=== PATIENT | male | born 1945 | race Caucasian/White ===

== ENCOUNTER → 2017-09-25 10:15 | Outpatient (CLI) | payer MEDICARE, OTHER, SELFPAY ==
[2017-09-25 12:48] LABS: Absolute Lymphocyte Count 0.78 X10^3/ul (0.83-4.51); Absolute Neutrophil Count 4.6 X10^3/uL (2.0-7.7); Basophil# 0.03 X10^3/uL; Basophil% 0.5 % (0-1); Eosinophils% 1.6 % (0-5); Hemoglobin 16.8 g/dl (13.0-16.5); Lymphocyte # 0.78 X10^3/ul (4.0); Lymphocyte % 12.5 % (19-41); Mean Corp Hgb Conc 34.3 g/gl (32-36); Mean Corpuscular Hgb 31.2 pg (27.0-32.0); Mean Corpuscular Volume 90.9 fL (80-94); Mean Platelet Vol. 11.2 fl (6.2-12.0); Monocyte# 0.55 X10^3/uL; Monocyte% 8.8 % (0-10); Neutrophil # 4.61 X10^3/uL (2.7-7.7); Neutrophil % 74.2 % (47-70); Platelet Count 168 K/mm3 (150-450); RBC Distribution Width CV 14.1 % (11.6-14.6); RBC Distribution Width SD 46.9 fl (35.1-43.9); Red Blood Count 5.39 M/mm3 (4.6-6.2); White Blood Count 6.2 K/mm3 (4.4-11.0)
[2017-09-25 12:49] LABS: POSITIVE COUNT NO; POSITIVE DIFFERENTIAL NO; POSITIVE MORPHOLOGY NO
[2017-09-25 13:07] LABS: AST(SGOT) 14 U/L (15-37); Alanine Aminotransfer ALT/SGPT 26 U/L (16-61); Albumin, Serum 3.7 g/dL (3.2-5.0); Alkaline Phosphatase 66 U/L (45-117); Anion Gap 8 (5-15); BUN 20 mg/dL (7-18); BUN/Creat Ratio 12.5 RATIO (10-20); Calcium,Total 8.7 mg/dL (8.5-10.1); Chloride 102 mmol/L (98-107); EST Glomerular Filtration Rate 45 mL/min (>60); Est Glom Filt Rate - Afr Amer 55 mL/min (>60); Globulin 3.8 g/dL (2.2-4.2); Glucose 78 mg/dL (74-106); Potassium 4.2 mmol/L (3.5-5.1); Protein, Total 7.5 g/dL (6.4-8.2); Sodium Level 138 mmol/L (136-145); Thyroid Stim Hormone (TSH) 1.96 uIU/mL (0.358-3.74); Uric Acid 7.6 mg/dL (3.5-7.2)
[2017-09-26 12:44] LABS: Pathologist Review Reviewed
== END ==
PROVIDERS: Family Provider Family Medicine Geriatric Medicine; PCP Family Medicine Geriatric Medicine; Visit Provider Family Medicine Geriatric Medicine
DX: E23.6 Other disorders of pituitary gland (principal); R53.83 Other fatigue; M10.9 Gout, unspecified
CPT/HCPCS: 36415; 80053; 84403; 84443; 84550; 85025

== ENCOUNTER → 2017-10-16 13:51 | Outpatient (CLI) | payer MEDICARE, OTHER, SELFPAY | PROVIDERS: Family Provider Family Medicine Geriatric Medicine; PCP Family Medicine Geriatric Medicine; Visit Provider Family Medicine Geriatric Medicine | DX: R68.83 Chills (without fever) (principal) | CPT/HCPCS: 87633 ==

== ENCOUNTER → 2017-12-04 10:15 | Outpatient (CLI) | payer MEDICARE, OTHER, SELFPAY ==
[2017-12-04 13:05] LABS: Protein, Urine (Random) 20.8 mg/dL (<11.9); Protein:Creat Ratio 128 mg/g CRE (0-200)
[2017-12-04 13:35] LABS: Albumin, Serum 3.7 g/dL (3.2-5.0); BUN 18 mg/dL (7-18); BUN/Creat Ratio 9.7 RATIO (10-20); Calcium,Total 8.5 mg/dL (8.5-10.1); Chloride 104 mmol/L (98-107); Creatinine, Serum 1.86 mg/dL (0.70-1.30); EST Glomerular Filtration Rate 38 mL/min (>60); Est Glom Filt Rate - Afr Amer 46 mL/min (>60); Glucose 159 mg/dL (74-106); Phosphorus 2.3 mg/dL (2.5-4.9); Sodium Level 138 mmol/L (136-145)
== END ==
PROVIDERS: Visit Provider Internal Medicine Nephrology
DX: N18.3 Chronic kidney disease, stage 3 (moderate) (principal)
CPT/HCPCS: 36415; 80069; 82570; 84156

== ENCOUNTER → 2017-12-11 11:55 | Outpatient (CLI) | payer MEDICARE, OTHER, SELFPAY ==
[2017-12-11 12:30] LABS: Hematocrit 51.6 % (40-54); Hemoglobin 17.7 g/dl (13.0-16.5); Mean Corp Hgb Conc 34.3 g/gl (32-36); Mean Corpuscular Hgb 31.1 pg (27.0-32.0); Mean Corpuscular Volume 90.7 fL (80-94); Mean Platelet Vol. 10.8 fl (6.2-12.0); Platelet Count 194 K/mm3 (150-450); RBC Distribution Width CV 13.2 % (11.6-14.6); RBC Distribution Width SD 43.7 fl (35.1-43.9); Red Blood Count 5.69 M/mm3 (4.6-6.2); White Blood Count 10.2 K/mm3 (4.4-11.0)
[2017-12-11 12:32] LABS: Scan Indicated on CBC? Y/N NO
== END ==
PROVIDERS: Family Provider Family Medicine Geriatric Medicine; PCP Family Medicine Geriatric Medicine; Visit Provider Internal Medicine Nephrology
DX: K62.5 Hemorrhage of anus and rectum (principal)
CPT/HCPCS: 36415; 85027

== ENCOUNTER 2017-12-30 09:21 | Emergency (ER) | payer MEDICARE, OTHER, SELFPAY ==
[2017-12-30 09:22] VITALS: BP 121/78; PULSE 71; RESP 17; TEMP 36.7; O2SAT 98; BMI 27.3
[2017-12-30 09:36] VITALS: O2SAT 96
--- NOTE | 2017-12-30 09:38 | EKG12_ITS ---
Test Reason : COUGH Blood Pressure : / mmHG Vent. Rate : 066 BPM Atrial Rate : 066 BPM P-R Int : 164 ms QRS Dur : 082 ms QT Int : 410 ms P-R-T Axes : 074 001 046 degrees QTc Int : 429 ms Normal sinus rhythm Normal ECG Confirmed by ALEX TREVINO ([id number]), film or videotape editor ANDRE MURRAY ([id number] on 01/13/2018 5:18:50 PM Referred By: LORELEI Confirmed By:ALEX TREVINO
--- NOTE | 2017-12-30 09:38 | RAD_ITS ---
STUDY: X-RAY CHEST REASON FOR EXAM: Male, 71 years old. Cough. Patient has history of lung cancer. TECHNIQUE: PA and lateral views of the chest. COMPARISON: October 12, 2016. FINDINGS: Cardiac monitoring leads are present. The lungs are hyperexpanded. There is interstitial thickening present in both lungs. There is blunting of the left lateral costophrenic angle possibly related to pleural thickening. No pleural effusions are visualized. There is pleural fibrotic thickening of the right lung apex. Normal size heart. Normal mediastinum and ghulam. Normal visualized pulmonary arteries. There is atherosclerotic calcification of the aortic arch with tortuosity. There is demineralization of the osseous structures. Normal visualized ribs, clavicles, and shoulders. There is no demonstrated abnormality of the visualized soft tissue structures of the upper abdomen. RAD/Chest PA and Lateral IMPRESSION: No radiographic evidence of acute cardiopulmonary disease. Electronically Signed: Samantha Melgoza MD at 10:29 EDT , Service support ,
--- NOTE | 2017-12-30 09:38 | NURSING ---
NO LW OR POA
--- NOTE | 2017-12-30 09:44 | ED.DCSUM_ITS ---
- ER Visit Summary Date of Service: 12/30/17 Chief Complaint: Cough, congestion, headache History of Present Illness: The patient is a 71 M with productive cough over the past 4 days. He reports that the fevers and sweats. He has pain in his back with the cough. He does have a history of COPD but reports very minimal wheezing. Past history significant for renal cell and bladder cancer resulting in right- sided nephrectomy. He also had lung cancer with a lobectomy. He does not use home oxygen. Physical Examination: Vital signs are unremarkable. Patient is lying in bed. He has frequent harsh sounding cough. Heart is regular rate and rhythm. Lung sounds are grossly clear. Abdomen is soft nontender. Lower external examination reveals no significant calf tenderness or edema. Test Results: EKG is sinus at 66 with no sign of acute ischemia. CBC was normal white count with no left shift. Chemistry studies reveal creatinine 1.78 which is consistent with his baseline. Lactate is normal. Blood cultures were sent. Two-view chest x-ray reveals no evidence of acute disease. Fibrotic changes are noted. Emergency Department Course and Treatment: Patient was given IV fluids along with p.o. Hycodan. On repeat evaluation he does feel improved. Patient states he does have some Hycodan at home that he can use. Because of his COPD history he will be covered with a course of Levaquin, first dose given here. He was encouraged to return for worsening symptoms or any other concerns. Treatment Plan: [] Disposition: Discharge Impression: Bronchitis with history of COPD This note was generated with [employer] dictation software. It may contain incorrect words, spelling, and punctuation that were not noted in review of the chart prior to signing ED Disposition - Plan for ED Patient: Chief Complaint: Cough Referrals: David Chandler Chi, MD [Primary Care Provider] -
[2017-12-30] MEDS: 0.9% Normal Saline 1,000 ML 150 ML IV (09:47)
[2017-12-30 09:56] LABS: Absolute Lymphocyte Count 0.67 X10^3/ul (0.83-4.51); Basophil# 0.04 X10^3/uL; Basophil% 0.7 % (0-1); Eosinophil# 0.24 X10^3/uL; Eosinophils% 4.1 % (0-5); Hematocrit 49.5 % (40-54); Lymphocyte # 0.67 X10^3/ul (4.0); Lymphocyte % 11.5 % (19-41); Mean Corp Hgb Conc 34.3 g/gl (32-36); Mean Corpuscular Hgb 30.9 pg (27.0-32.0); Mean Corpuscular Volume 89.8 fL (80-94); Mean Platelet Vol. 10.9 fl (6.2-12.0); Monocyte# 0.77 X10^3/uL; Monocyte% 13.3 % (0-10); Neutrophil # 4.01 X10^3/uL (2.7-7.7); POSITIVE COUNT NO; POSITIVE DIFFERENTIAL NO; POSITIVE MORPHOLOGY NO; Platelet Count 152 K/mm3 (150-450); RBC Distribution Width SD 42.5 fl (35.1-43.9); Red Blood Count 5.51 M/mm3 (4.6-6.2); White Blood Count 5.8 K/mm3 (4.4-11.0)
[2017-12-30 10:10] LABS: Anion Gap 7 (5-15); BUN 25 mg/dL (7-18); Calcium,Total 8.5 mg/dL (8.5-10.1); Chloride 105 mmol/L (98-107); Creatinine, Serum 1.78 mg/dL (0.70-1.30); EST Glomerular Filtration Rate 40 mL/min (>60); Est Glom Filt Rate - Afr Amer 49 mL/min (>60); Estimated Creatinine Clearance 45.49 ml/min; Glucose 77 mg/dL (74-106); Potassium 4.2 mmol/L (3.5-5.1); Sodium Level 138 mmol/L (136-145)
[2017-12-30 10:31] LABS: Lactic Acid 1.4 mmol/L (0.4-2.0)
--- NOTE | 2017-12-30 10:44 | ED.DEP ---
ED Disposition - Plan for ED Patient: Disposition: Home or Assisted Living Chief Complaint: Cough Instructions: Acute Bronchitis Prescriptions: Levofloxacin [Levaquin] 750 mg PO DAILY #4 tablet Referrals: David Chandler Chi, MD [Primary Care Provider] - 1 Week
[2017-12-30] MEDS: levoFLOXacin 750 MG Tablet PO (10:49)
[2017-12-30 10:53] VITALS: BP 136/93; PULSE 61; RESP 20; O2SAT 95
--- NOTE | 2017-12-31 14:17 | CM.ED ---
ED CALLBACK: Follow-up call placed to patient. Voicemail left with return contact information.
== END 2017-12-30 10:54 | disposition home or self-care (01) ==
PROVIDERS: Emergency Provider Emergency Medicine; Family Provider Family Medicine Geriatric Medicine; PCP Family Medicine Geriatric Medicine
DX: J44.9 Chronic obstructive pulmonary disease, unspecified (principal); J20.9 Acute bronchitis, unspecified; K21.9 Gastro-esophageal reflux disease without esophagitis; N18.9 Chronic kidney disease, unspecified; Z85.53 Personal history of malignant neoplasm of renal pelvis; Z85.51 Personal history of malignant neoplasm of bladder; Z85.118 Personal history of other malignant neoplasm of bronchus and lung; Z87.891 Personal history of nicotine dependence; Z90.5 Acquired absence of kidney; Z79.51 Long term (current) use of inhaled steroids; Z79.02 Long term (current) use of antithrombotics/antiplatelets
CPT/HCPCS: 71046; 80048; 83605; 85025; 87040; 93005; 99285; J7030

== ENCOUNTER → 2018-02-25 14:50 | Outpatient (CLI) | payer MEDICARE, OTHER, SELFPAY ==
--- NOTE | 2018-02-25 14:50 | RAD_ITS ---
STUDY: X-RAY - LUMBAR SPINE REASON FOR EXAM: Male, 72 years old. Lower back pain TECHNIQUE: 4 view(s) of the lumbar spine were obtained. COMPARISON: 05/20/2017, 12/11/2016 lumbar spine x-rays. FINDINGS: Scoliosis. Low lumbar posterior johnny and pedicle screw fixation and multilevel laminectomy between L4 and S1. The surgical construct appears intact. Moderate disc degenerative features at L2-L3, L3-L4 with disc space narrowing, endplate degenerative changes, small anterior osteophytes, and mild facet hypertrophy. In extension, there is no significant translation of vertebral bodies. In flexion, there is no significant translation of vertebral bodies. There is slight anterior compression of the disc intervals at L2-L3, L3-L4. RAD/L/S Spine Min 4 Views IMPRESSION: Minimal asymmetric anterior compression of the intervertebral discs at L2-L3 and L3-L4 in flexion. No significant change between neutral position and extension. Degenerative disc disease at each of these levels. This reflects abnormal motion at the levels immediately above the spinal fixation L4 and S1. The surgical construct is intact. Electronically Signed: Jaxon James, at 10:48 EDT Tel , Service support ,
== END ==
PROVIDERS: Family Provider Family Medicine Geriatric Medicine; PCP Family Medicine Geriatric Medicine; Visit Provider Orthopaedic Surgery
DX: M54.5 Low back pain (principal)
CPT/HCPCS: 72110; 97161

== ENCOUNTER → 2018-03-03 15:57 | Outpatient (CLI) | payer MEDICARE, OTHER, SELFPAY ==
--- NOTE | 2018-03-03 15:58 | MRI_ITS ---
STUDY: MRI LUMBAR SPINE WITH AND WITHOUT CONTRAST REASON FOR EXAM: Male, 72 years old. Low back pain and radiculopathy on the left TECHNIQUE: Standardized fat and water weighted pulse sequences were obtained in the sagittal and axial planes. 10 ml of Gadavist contrast material was administered for the contrast portion of the examination. COMPARISON: November 16, 2016 FINDINGS: T12-L1: Normal endplates. Normal disc height, desiccation and normal. Normal bilateral facet joints. Normal central canal and bilateral lateral recesses. Normal bilateral intervertebral neural foramina. Normal lumbar lordosis. There is no substantial scoliosis. Normal conus medullaris that terminates at T12-L1 L1-2: Normal endplates. Normal disc height, desiccation and normal morphology. Normal bilateral facet joints. Normal central canal and bilateral lateral recesses. Normal bilateral intervertebral neural foramina. L2-3: Normal endplates. Normal disc height, desiccation and mild annular bulge with small bilateral posterolateral/foraminal disc protrusions slightly larger on the right. Normal bilateral facet joints. Normal central canal. Mild left lateral recess and neuroforaminal encroachment with slightly more pronounced narrowing on the right. L3-4: Normal endplates. Normal disc height, desiccation and mild annular bulge in association with a moderate size right paracentral/posterolateral disc extrusion with inferior migration of disc fragment.. Bilateral facet arthropathy slightly greater on the right. Normal central canal. Moderate to severe right lateral recess and subarticular stenosis. Moderate to severe right neural foraminal stenosis.. L4-5: Postop changes status post bilateral laminectomy and posterior fusion. Minimal endplate spurring.. Bilateral facet arthropathy.. Normal central canal and bilateral lateral recesses. Normal bilateral intervertebral neural foramina. L5-S1: Postsurgical changes status post bilateral laminectomy and posterior fusion. Narrowed disc space with tiny central calcific disc or osteophyte protrusion. Bilateral facet arthropathy.. Normal central canal and bilateral lateral recesses. Normal bilateral intervertebral neural foramina. Normal visualized sacral ala. No abnormal enhancement following contrast injection Normal visualized paraspinous soft tissue structures. MRI/Spine Lumbar W/WO Contrast IMPRESSION: Postop changes status post bilateral laminectomy and posterior fusion at L4-5 and L5-S1. Spinal stenosis at L3-4 on the right secondary to disc disease and bony hypertrophy. Other findings as above Electronically Signed: Juan Alberto Stapleton MD at 23:04 EDT , Service support ,
[2018-03-03 16:21] LABS: CREATININE FINGERSTICK 1.3 mg/dL (0.70-1.30)
== END ==
PROVIDERS: Family Provider Family Medicine Geriatric Medicine; PCP Family Medicine Geriatric Medicine; Visit Provider Orthopaedic Surgery
DX: M54.16 Radiculopathy, lumbar region (principal)
CPT/HCPCS: 72158; A9585

== ENCOUNTER → 2018-03-31 12:10 | Outpatient (CLI) | payer MEDICARE, OTHER, SELFPAY ==
[2018-03-31 13:45] LABS: Absolute Lymphocyte Count 0.88 X10^3/ul (0.83-4.51); Absolute Neutrophil Count 6.6 X10^3/uL (2.0-7.7); Basophil# 0.02 X10^3/uL; Basophil% 0.2 % (0-1); Eosinophil# 0.11 X10^3/uL; Eosinophils% 1.3 % (0-5); Hematocrit 49.2 % (40-54); Hemoglobin 16.8 g/dl (13.0-16.5); Lymphocyte # 0.88 X10^3/ul (4.0); Lymphocyte % 10.7 % (19-41); Mean Corp Hgb Conc 34.1 g/gl (32-36); Mean Corpuscular Hgb 31.1 pg (27.0-32.0); Mean Corpuscular Volume 90.9 fL (80-94); Monocyte# 0.56 X10^3/uL; Monocyte% 6.8 % (0-10); Neutrophil # 6.58 X10^3/uL (2.7-7.7); Neutrophil % 80.3 % (47-70); Platelet Count 176 K/mm3 (150-450); RBC Distribution Width CV 13.7 % (11.6-14.6); RBC Distribution Width SD 45.3 fl (35.1-43.9); Red Blood Count 5.41 M/mm3 (4.6-6.2); White Blood Count 8.2 K/mm3 (4.4-11.0)
[2018-03-31 13:46] LABS: Differential Indicated SCAN CRITERIA MET; POSITIVE COUNT YES; POSITIVE DIFFERENTIAL NO; POSITIVE MORPHOLOGY YES
[2018-03-31 13:57] LABS: Vitamin D,25 Hydroxy 25.2 ng/mL (29.95-100.01)
[2018-03-31 13:59] LABS: ALB/GLOB Ratio 0.9 RATIO (0.9-2.4); AST(SGOT) 17 U/L (15-37); Alanine Aminotransfer ALT/SGPT 37 U/L (16-61); Albumin, Serum 3.5 g/dL (3.2-5.0); Alkaline Phosphatase 66 U/L (45-117); Anion Gap 9 (5-15); BUN 26 mg/dL (7-18); BUN/Creat Ratio 14.4 RATIO (10-20); Calcium,Total 8.7 mg/dL (8.5-10.1); Chloride 105 mmol/L (98-107); Creatinine, Serum 1.81 mg/dL (0.70-1.30); EST Glomerular Filtration Rate 39 mL/min (>60); Est Glom Filt Rate - Afr Amer 48 mL/min (>60); Glucose 98 mg/dL (74-106); Potassium 3.8 mmol/L (3.5-5.1); Protein, Total 7.5 g/dL (6.4-8.2); Sodium Level 139 mmol/L (136-145); Thyroid Stim Hormone (TSH) 1.93 uIU/mL (0.358-3.74); Uric Acid 8.5 mg/dL (3.5-7.2)
[2018-03-31 14:20] LABS: Platelet Estimate ADEQUATE (ADEQ); Platelet Morphology LARGE
[2018-04-01 17:12] LABS: Hep C Antibodies 0.1 s/co ratio (0.0-0.9)
== END ==
PROVIDERS: Family Provider Family Medicine Geriatric Medicine; PCP Family Medicine Geriatric Medicine; Visit Provider Family Medicine Geriatric Medicine
DX: R53.83 Other fatigue (principal); E55.9 Vitamin D deficiency, unspecified; E23.6 Other disorders of pituitary gland; M10.9 Gout, unspecified; Z13.89 Encounter for screening for other disorder
CPT/HCPCS: 36415; 80053; 82306; 84403; 84443; 84550; 85025; 86803

== ENCOUNTER 2018-04-02 13:00 | Outpatient (RCR) | payer MEDICARE, OTHER, SELFPAY ==
--- NOTE | 2018-02-25 15:46 | HP.PTEVAL_ITS ---
Patient's Visit Information CHECO GRAY is a 72 year old M referred to Physical Therapy by Margarita Otto with a diagnosis of R leg pain. Date of Evaluation: 02/25/18 Physical Therapist: Carmen Dill - Visit Plan Frequency: 2x /Week Duration: 2 Months Plan: 2X/week for 8 weeks for AT, deep water traction/ core stability, hip and LE strength (especially hip ext), trunk ROM, HS stretches with HEP. - Subjective Subjective: Pt reports that he has LBP and has had it 20 years and this episode for 4-6 weeks. Current symptoms: pain and stiff and pain down the front of R leg with front of leg and foot numbness. Few weeks ago her could not feel anything down his leg. He has 4 metal in L2-3-4.....saw Dr Otto a year ago and had the same problem and it worked good. Just finished [place] a year ago...still CA free. He is excited about AT. He is gonna have an MRI done soon and they will discuss POC. Increase pain with golfing and anything that requires lifting. Stairs: has to hold the railing and hard to lift leg up to get on the step. - Pain back pain Pain Intensity (Out of 10): 4 R leg pain Pain Intensity (Out of 10): 0 Comment: burning pain in foot 2-3/10 - Objective Gait: Walks with decreased stance time on the R. LE Strength: B hip flex 4+/5 , B knee ext and flex 4+/5, B hip abd 4+/5, B hip ext 3-/5. + SLR B for LBP. Tight HS B, Hip flexors. Able to heel and toe walk without difficulty. Trunk AROM: flexion 50%, ext not even to neutral, SB B 25%B - Goals Goal 1:: I HEP Goal Time Frame: 4-6 Weeks Goal 2:: Decrease back and leg pain to 2/10 back pain and 0/10 leg pain Goal Time Frame: 4-6 Weeks Goal 3:: Increase trunk AROM by 25% each plane (Trunk AROM: flexion 50%, ext not even to neutral, SB B 25%B) Goal Time Frame: 4-6 Weeks - Rehabilitation Potential Rehabilitation Potential: Good - Anticipated Interventions Patient/Client Instruction: Educate patient on: Condition, Plan of Care For the Purpose of:: To decrease pain, To increase ROM, To improve nutrient delivery to tissue, To improve muscle performance and motor function, To improve ability to perform ADL's, To increase tolerance to activity/condition/ position, To improve performance and independence with ADL's, To improve gait and locomotor functions, To improve health of tissue, To increase flexibility/ ROM Therapeutic Exercise to Include: Strength training, Body mechanics, Postural training, Flexibilty training, In an aquatic setting, Active ROM, Dynamic Lumbar Stabilization For the Purpose of:: To decrease pain, To increase ROM, To improve nutrient delivery to tissue, To improve muscle performance and motor function, To increase tolerance to activity/condition/position, To improve gait and locomotor functions, To improve health of tissue, To decrease soft tissue restriction, To increase flexibility/ROM Thank you for the opportunity to evaluate your patient. For Medicare and Medicare HMO plans, please review the plan of care and approve it. It will need to be FAXED BACK to us at [phone] for Medicare purposes. Please let me know if there are questions or concerns regarding this plan of care. Physician Signature: Date:
--- NOTE | 2018-04-02 13:30 | HP.PTDCSUM ---
HP - PT D/C Summary It has been my pleasure to treat CHECO GRAY under orders from Margarita Otto, for the diagnosis of R leg pain for a total of 7 visit(s). Discharge Date: 04/02/18 Please see the following information for a summary of their discharge status. - Subjective Subjective: Pt saw the surgeon yesterday and and had a + SLR on B sides. He is going to do surgery....They are going to do the surgery next week to set up time and dates. Dr wants to keep up with PT. Pt was doing good until the Dr did that yesterday. Pt walked the whole week last week and did not have a problems. He has numbess in his R leg and getting atrophy. Pt wants to wait on PT until after surgery. - Pain back pain Pain Intensity (Out of 10): 2 R leg pain Pain Intensity (Out of 10): 4 - Overall Improvement % Improvement: 25 - Objective Objective/Function: Trunk AROM: flexion 50%, ext 20%, SB B 25%, Rot B 75%. LE MMT: R hip flex 4-/5 and L 4/5, R knee ext 4-/5 and L 4/5, R knee flex 4-/5 and L 4/5, R hip abd B 4/5 - Goals Goal 1:: I HEP Goal 2:: Decrease back and leg pain to 2/10 back pain and 0/10 leg pain Goal 3:: Increase trunk AROM by 25% each plane (Trunk AROM: flexion 50%, ext not even to neutral, SB B 25%B) - Plan Plan: dc pt to surgeon - D/C Information Discharge Comments: DC PT to Surgeon If there are questions or concerns regarding this patient's physical therapy, please feel free to call me at [phone]. Thank you for the referral of this patient. Sincerely, Carmen Dill
== END 2018-04-02 17:01 | disposition home or self-care (01) ==
LOC: PT 13:00
PROVIDERS: Family Provider Family Medicine Geriatric Medicine; PCP Family Medicine Geriatric Medicine; Visit Provider Orthopaedic Surgery
DX: M79.604 Pain in right leg (principal)
CPT/HCPCS: 97113; 97161; 97530

== ENCOUNTER → 2018-06-06 09:30 | Outpatient (CLI) | payer MEDICARE, OTHER, SELFPAY ==
[2018-06-06 12:57] LABS: Albumin, Serum 3.3 g/dL (3.2-5.0); BUN 22 mg/dL (7-18); BUN/Creat Ratio 12.2 RATIO (10-20); Calcium,Total 8.6 mg/dL (8.5-10.1); Chloride 106 mmol/L (98-107); Creatinine, Serum 1.81 mg/dL (0.70-1.30); EST Glomerular Filtration Rate 39 mL/min (>60); Est Glom Filt Rate - Afr Amer 48 mL/min (>60); Glucose 75 mg/dL (74-106); Phosphorus 2.7 mg/dL (2.5-4.9); Sodium Level 140 mmol/L (136-145)
[2018-06-06 13:02] LABS: Hematocrit 43.7 % (40-54); Hemoglobin 14.5 g/dl (13.0-16.5); Mean Corp Hgb Conc 33.2 g/gl (32-36); Mean Corpuscular Hgb 30.5 pg (27.0-32.0); Mean Platelet Vol. 11.3 fl (6.2-12.0); Platelet Count 214 K/mm3 (150-450); RBC Distribution Width CV 13.6 % (11.6-14.6); RBC Distribution Width SD 44.9 fl (35.1-43.9); Red Blood Count 4.75 M/mm3 (4.6-6.2); Scan Indicated on CBC? Y/N NO; White Blood Count 7.1 K/mm3 (4.4-11.0)
[2018-06-06 13:26] LABS: PTHIN 54.6 pg/mL (18.4-80.1)
== END ==
PROVIDERS: Family Provider Family Medicine Geriatric Medicine; PCP Family Medicine Geriatric Medicine; Visit Provider Internal Medicine Nephrology
DX: N18.3 Chronic kidney disease, stage 3 (moderate) (principal)
CPT/HCPCS: 36415; 80069; 83970; 85027

== ENCOUNTER → 2018-06-13 08:39 | Outpatient (CLI) | payer MEDICARE, OTHER, SELFPAY ==
--- NOTE | 2018-06-13 08:47 | US_ITS ---
STUDY: RENAL ULTRASOUND - COMPLETE REASON FOR EXAM: Male, 72 years old. Nephrectomy TECHNIQUE: Ultrasound evaluation of the kidneys was performed with real-time and static arriaga-scale imaging. COMPARISON: None. FINDINGS: RIGHT KIDNEY: There has been a RIGHT nephrectomy. LEFT KIDNEY: Normal location of the left kidney, which is normal in size. The left kidney measures 12.8 x 6.1 x 7 cm. There is a normal cortex of the left kidney. The renal cortex measures 2 cm. There is no left renal mass or cyst. There are no left renal calculi. There is no left hydronephrosis. DISTAL LEFT URETER: There is non-visualization of the distal left ureter. There is no demonstrated left ureterovesical junction calculus. There is a visualized left ureteral jet. Urinary bladder is unremarkable. US/Kidney and Bladder IMPRESSION: RIGHT KIDNEY: There has been a RIGHT nephrectomy. LEFT KIDNEY: Normal. Electronically Signed: Trey Jaquez MD at 6:14 EST , Service support ,
== END ==
PROVIDERS: Family Provider Family Medicine Geriatric Medicine; PCP Family Medicine Geriatric Medicine; Referring Provider Internal Medicine Nephrology; Visit Provider Internal Medicine Nephrology
DX: C64.9 Malignant neoplasm of unspecified kidney, except renal pelvis (principal)
CPT/HCPCS: 76770

== ENCOUNTER → 2018-06-17 12:45 | Outpatient (CLI) | payer MEDICARE, OTHER, SELFPAY ==
--- NOTE | 2018-06-17 12:48 | RAD_ITS ---
STUDY: X-RAY - LUMBAR SPINE REASON FOR EXAM: Male, 72 years old. Lower back pain TECHNIQUE: 2 view(s) of the lumbar spine were obtained. COMPARISON: 02/25/2018. 05/20/2017. FINDINGS: Status post pedicular fusion L3-S1 and laminectomy with interval placement of disc spacer placement at L3-L4 and solid bone fusion. Interval removal of stimulator remnant. Normal lumbar lordosis. There is no substantial scoliosis. Stable mild retrolisthesis L2 on L3. There is spondylosis of the endplates. There is multi-level disc space narrowing along L2-3, L3-4 L5, L5-S1 as on previous exam. Facet arthropathy L2-3, L3-4 extending to S1. There is neural foraminal narrowing L2-3, L3-4, less L4-L5, L5-S1 not sufficiently utilized. There is atherosclerotic calcification of the abdominal aorta without a demonstrated aneurysm. There is an inferior vena cava filter. RAD/Lumbar Spine 2 or 3 Views IMPRESSION: Interval postsurgical changes as above. Persistent facet arthropathy, neural foraminal narrowing L3-4, disc space narrowing L4-5, L5-S1 and mild retrolisthesis L2 on L3. Electronically Signed: Venus Morales MD at 2:13 EST , Service support ,
== END ==
PROVIDERS: Family Provider Family Medicine Geriatric Medicine; PCP Family Medicine Geriatric Medicine; Referring Provider Orthopaedic Surgery; Visit Provider Orthopaedic Surgery
DX: M54.5 Low back pain (principal)
CPT/HCPCS: 72100

== ENCOUNTER → 2018-07-03 08:10 | Outpatient (CLI) | payer MEDICARE, OTHER, SELFPAY ==
--- NOTE | 2018-07-03 08:13 | RAD_ITS ---
HISTORY: shoulder pain after pulling self up from bed COMPARISON: None FINDINGS: XR Shoulder Min 3 views No dislocation or acute fracture. The right glenohumeral relationship appears normal. The right AC joint is grossly preserved. Remote fracture of the posterior lateral right fifth rib. RAD/Shoulder min 2 Views IMPRESSION: 1. Negative right shoulder. No acute disease. 2. Right fifth rib remote fracture. at 0810 Reported and signed by: Ayaan Linder MD Electronically Signed: Ayaan Linder, at 8:07 EST Tel , Service support ,
--- OUTSIDE RECORDS SUMMARY | 2018-08-28 08:02 | XMS RPT_ITS ---
:1945 Author Organization OHIP Support Name Relationship Address Phone STEVEN GRAY Unavailable [address] + [place] [address] R Unavailable Unavailable Unavailable STEVEN GRAY Unavailable [address] + [place] [address] R Unavailable Unavailable Unavailable STEVEN GRAY Unavailable [address] + [place] [address] R Unavailable Unavailable Unavailable STEVEN GRAY Unavailable Unavailable + CHECO GRAY Unavailable Unavailable Unavailable STEVEN GRAY Unavailable [address] + [place] [address] R Unavailable Unavailable Unavailable STEVEN GRAY Unavailable [address] + [place] [address] R Unavailable Unavailable Unavailable STEVEN GRAY Unavailable [address] + [place] [address] R Unavailable Unavailable Unavailable STEVEN GRAY Unavailable [address] + [place] [address] R Unavailable Unavailable Unavailable STEVEN GRAY Unavailable [address] + [place] [address] R Unavailable Unavailable Unavailable STEVEN GRAY Unavailable [address] + [place] [address] R Unavailable Unavailable Unavailable STEVEN GRAY Unavailable [address] + [place] [address] R Unavailable Unavailable Unavailable STEVEN GRAY Unavailable Unavailable + CHECO GRAY Unavailable Unavailable Unavailable STEVEN GRAY Unavailable Unavailable + CHECO GRAY Unavailable Unavailable Unavailable STEVEN GRAY Unavailable Unavailable + CHECO GRAY Unavailable Unavailable Unavailable STEVEN GRAY Unavailable Unavailable + CHECO GRAY Unavailable Unavailable Unavailable STEVEN GRAY Unavailable Unavailable + MARINACHECO Unavailable Unavailable Unavailable STEVEN GRAY Unavailable Unavailable + CHECO GRAY Unavailable Unavailable Unavailable TSEVEN GRAY Unavailable Unavailable + CHECO GRAY Unavailable Unavailable Unavailable STEVEN GRAY Unavailable [address] + [place] [address] R Unavailable Unavailable Unavailable STEVEN GRAY Unavailable [address] + [place] [address] R Unavailable Unavailable Unavailable STEVEN GRAY Unavailable [address] + [place] [address] R Unavailable Unavailable Unavailable STEVEN GRAY Unavailable [address] + [place] [address] R Unavailable Unavailable Unavailable STEVEN GRAY Unavailable Unavailable Unavailable STEVEN GRAY Unavailable [address] + [place] [address] R Unavailable Unavailable Unavailable STEVEN GRAY Unavailable [address] + [place] [address] R Unavailable Unavailable Unavailable STEVEN GRAY Unavailable Unavailable + CHECO GRAY Unavailable Unavailable Unavailable STEVEN GRAY Unavailable [address] + [place] [address] R Unavailable Unavailable Unavailable STEVEN GRAY Unavailable [address] + [place] [address] R Unavailable Unavailable Unavailable STEVEN GRAY Unavailable [address] + [place] [address] R Unavailable Unavailable Unavailable STEVEN GRAY Unavailable [address] + [place] [address] R Unavailable Unavailable Unavailable STEVEN GRAY Unavailable [address] + [place] [address] R Unavailable Unavailable Unavailable Care Team Providers Name Role Phone MARGARITA OTTO Attending Unavailable MARGARITA OTTO Referring Unavailable MARGARITA OTTO Admitting Unavailable MARGARITA OTTO Attending Unavailable CONSULT, GENERAL MEDICINE Consulting Unavailable MARGARITA OTTO Attending Unavailable OTTO, MARGARITA Referring Unavailable LAWRENCE PATRICIO Attending Unavailable GRIMME, AMY L Referring Unavailable RAMESH, DAVID-CHI Primary Care Unavailable LAWRENCE PATRICIO Attending Unavailable GRIMME, AMY L Referring Unavailable RAMESH, DAVID-CHI Primary Care Unavailable OTTOMARGARITA Attending Unavailable SELF, SELF Referring Unavailable RAMESH, DAVID-CHI Primary Care Unavailable GRIMME, AMY L Attending Unavailable GRIMME, AMY L Referring Unavailable RAMESH, DAVID-CHI Primary Care Unavailable RAMESH, DAVID-CHI Primary Care Unavailable KHABIRI, HK CELSO Admitting Unavailable KHABIRI, HK CELSO Attending Unavailable RAMESH, DAVID-CHI Primary Care Unavailable OTTO, MARGARITA Referring Unavailable KHABIRI, HK CELSO Attending Unavailable GRIMME, AMY L Referring Unavailable RAMESH, DAVID-CHI Primary Care Unavailable LORA, XUAN (MOLDER WAX BALL) Referring Unavailable LORA, XUAN (MOLDER WAX BALL) Referring Unavailable LORA, XUAN (MOLDER WAX BALL) Referring Unavailable LORA, XUAN (MOLDER WAX BALL) Referring Unavailable LORA, XUAN (MOLDER WAX BALL) Referring Unavailable LORA, XUAN (MOLDER WAX BALL) Attending Unavailable DAVE NOBLE Referring Unavailable LORA, XUAN (MOLDER WAX BALL) Referring Unavailable LORA, XUAN (MOLDER WAX BALL) Referring Unavailable LORA, XUAN (MOLDER WAX BALL) Referring Unavailable LORA, XUAN (MOLDER WAX BALL) Referring Unavailable LORA, XUAN (MOLDER WAX BALL) Referring Unavailable LORA, XUAN (MOLDER WAX BALL) Attending Unavailable LORA, XUAN (MOLDER WAX BALL) Referring Unavailable LORA, XUAN (MOLDER WAX BALL) Referring Unavailable LORA, XUAN (MOLDER WAX BALL) Referring Unavailable LORA, XUAN (MOLDER WAX BALL) Referring Unavailable Margarita Otto Attending Unavailable Ramesh, David Chi Referring Unavailable Margarita Otto Attending Unavailable Otto, Margarita Referring Unavailable Ramesh, David Chi Primary Care Unavailable Ramesh, David Chi Attending Unavailable Ramesh, David Chi Primary Care Unavailable Ramesh, David Chi Attending Unavailable Ramesh, David Chi Primary Care Unavailable mAy Briggs Attending Unavailable Ayaan Griggs Attending Unavailable Otto, Margarita Referring Unavailable Ramesh, David Chi Primary Care Unavailable Ramesh, David Chi Primary Care Unavailable Amy Briggs Attending Unavailable Amy Briggs Attending Unavailable Ramesh, David Chi Primary Care Unavailable Ramesh, David Chi Primary Care Unavailable Ellie Norman Attending Unavailable Otto, Margarita Attending Unavailable Ramesh, David Chi Referring Unavailable Ramesh, David Chi Primary Care Unavailable Otto, Margarita Attending Unavailable Otto, Margarita Referring Unavailable Ramesh, David Chi Primary Care Unavailable Otto, Margarita Attending Unavailable Otto, Margarita Referring Unavailable Ramesh, David Chi Primary Care Unavailable Otto, Margarita Attending Unavailable Otto, Margarita Referring Unavailable Ramesh, David Chi Primary Care Unavailable Ramesh, David Chi Attending Unavailable Ramesh, David Chi Primary Care Unavailable Otto, Margarita Attending Unavailable Ramesh, David Chi Referring Unavailable Ramesh, David Chi Primary Care Unavailable Chester, Amy Attending Unavailable Ramesh, David Chi Primary Care Unavailable Chester, Amy Attending Unavailable Chester, Amy Referring Unavailable Ramesh, David Chi Primary Care Unavailable Otto, Margarita Attending Unavailable Ramesh, David Chi Referring Unavailable Otto, Margarita Attending Unavailable Otto, Margarita Referring Unavailable Ramesh, David Chi Primary Care Unavailable Ayaan Griggs Attending Unavailable Ramesh, David Chi Referring Unavailable WayAyaan shannon Attending Unavailable Wayt, Ayaan Referring Unavailable Ramesh, David Chi Primary Care Unavailable PROBLEMS PROBLEMS DATE TYPE CONDITION / CODE ATTENDING STATUS SOURCE 07/15/2018 Unknown M54.9 - Dorsalgia, Margarita Otto Active [facility] unspecified / Community M54.9(ICD-10) Hospital Repository 07/15/2018 Unknown G89.29 - Other Margarita Otto Active [place] chronic pain / Community G89.29(ICD-10) Hospital Repository 07/08/2018 Admitting Encounter for other KHABIRI, HK Active [facility] diagnosis preprocedural [facility] examination / [facility] Z01.818(ICD-10) Center Repository 07/08/2018 Admitting Presence of other KHABIRI, HK Active [place] [facility] diagnosis vascular implants [facility] and grafts / [facility] Z95.828(ICD-10) Center Repository 07/03/2018 Unknown M25.511 - Pain in WayAyaan shannon Active [place] right shoulder / Community M25.511(ICD-10) Hospital Repository 06/17/2018 Unknown M54.5 - Low back Margarita Otto Active [place] pain / Community M54.5(ICD-10) Hospital Repository 06/13/2018 Unknown C64.9 - Malignant Amy rBiggs Active [facility] neoplasm of Community unspecified kidney, Hospital except renal pelvis Repository / C64.9(ICD-10) 05/08/2018 Unknown N18.3 - Chronic Amy Briggs Active [place] kidney disease, Community stage 3 (moderate) Hospital / N18.3(ICD-10) Repository 04/26/2018 Admitting Obstructive sleep MARGARITA OTTO Active [facility] diagnosis apnea (adult) [place] (pediatric) / [facility] G47.33(ICD-10) Center Repository 04/25/2018 Admitting Arthrodesis status MARGARITA OTTO Active [facility] diagnosis / Z98.1(ICD-10) [facility] Repository 04/25/2018 [facility] [place] unspecified / [facility] J44.9(ICD-10) Center Repository 04/25/2018 Admitting Other pulmonary MANNIE OTTOBETH [facility] diagnosis embolism without [place] acute cor pulmonale [facility] / I26.99(ICD-10) Center Repository 04/17/2018 Admitting [facility] without neurogenic [facility] claudication / Center M48.061(ICD-10) Repository 04/17/2018 Admitting Other specified KHABIRI, HK Active [facility] diagnosis personal risk [facility] University factors, not [facility] classified / Repository Z91.89(ICD-10) 04/16/2018 Admitting Pre-op Exam / MARGARITA OTTO Active [facility] diagnosis [id number]() [facility] Repository 04/16/2018 Admitting Preoperative LAWRENCE PATRICIO Active [facility] diagnosis Assessment / 279() [facility] Repository 04/02/2018 Unknown M79.604 - Pain in Margarita Otto Active [facility] right leg / Community M79.604(ICD-10) Hospital Repository 03/31/2018 Unknown 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, 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 / Hospital E23.6(ICD-10) Repository 03/31/2018 Unknown E55.9 - Vitamin D Ramesh, David Chi Active [facility] deficiency, Community unspecified / Hospital E55.9(ICD-10) Repository 03/31/2018 Unknown M10.9 - Gout, Ramesh, David Chi Active [facility] unspecified / Community M10.9(ICD-10) Hospital Repository 03/31/2018 Unknown R53.83 - Other Ramesh, David Chi Active [facility] fatigue / Community R53.83(ICD-10) Hospital Repository 03/31/2018 Unknown Z13.89 - Encounter Ramesh, David Chi Active [place] for screening for Community other disorder / Hospital Z13.89(ICD-10) Repository 03/03/2018 Unknown M54.16 - Margarita Otto Active [place] Radiculopathy, Community lumbar region / Hospital M54.16(ICD-10) Repository 12/11/2017 Unknown K62.5 - Hemorrhage Chester, Amy Active [facility] of anus and rectum Community / K62.5(ICD-10) Hospital Repository 10/17/2017 Active Unknown / NA Active [facility] [place] Repository 10/16/2017 Active Other pulmonary NA Active [facility] embolism without [facility] acute cor pulmonale [place] / I26.99(ICD-10) Repository 10/16/2017 Active Acute embolism and NA Active [facility] thrombosis of [facility] unspecified vein / [place] I82.90(ICD-10) Repository 09/24/2016 Active 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, [facility]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 or [place] lung / Repository C34.11(ICD-10) PROCEDURES PROCEDURES No Procedure Records FoundRESULTS RESULTS LUMBAR SPINE 2 OR 3 Observed: 07/15/2018 Status: F Source: [place] VIEWS 1:16 PM [facility] REPOSITORY [facility] Imaging Services [address] [place] [address] Lumbar Spine 2 or 3 Views MR#: [id number] Acct: [id number] Name: CHECO GRAY Rep #: [id number] : 1945 M 72 From: Walter Peguero PCP: Ramesh BRUMFIELD,David Huffman Status: REG CLI Study: Lumbar Spine 2 or 3 Views Date of Exam: 07/15/18 Exam# [id number] Ordering Dr: Margarita Otto MD STUDY: X-RAY - LUMBAR SPINE REASON FOR EXAM: Male, 72 years old. dorsalgia, chronic pain TECHNIQUE: 2 view(s) of the lumbar spine were obtained. COMPARISON: June 17, 2018 FINDINGS: Normal lumbar lordosis. There is posterior fusion at L3, L4, L5 and S1. There is a disc spacer at L3/L4. Findings are stable since the prior examination There is multilevel endplate spondylosis of the lumbar vertebrae. There is multi-level degenerative disc disease with multi-level disc space narrowing. There is atherosclerotic calcification of the abdominal aorta. There is IVC filter. RAD/Lumbar Spine 2 or 3 Views IMPRESSION: Stable posterior fusion Electronically Signed: Walter Peguero MD at 8:13 EST Tel , Service support , CC: Margarita Otto MD; David Chandler MD Manager Ethics: Signed ORTHOPEDIC VISIT Observed: 07/03/2018 Status: F Source: [place] REPORT 4:23 PM [facility] REPOSITORY [facility] Orthopaedics AND Sports Medicine [address] [place] [address] OFFICE VISIT Date of Service: 07/03/18 MR#: [id number] Acct: [id number] Name: CHECO GRAY Rep #: [id number] : 1945 Provider: MARIANGEL Griggs Age/Sex: 72/M Location: [facility] Status: Signed Intake Intake Visit Reasons: RIGHT SHOULDER Is patient in pain?: Yes Allergies No Known Allergies Allergy (Verified 07/03/18 08:07) Medications Albuterol Inhaler [Ventolin Hfa] 1 - 2 puff INHALATION Q4H PRN PRN 10/20/13 [History Confirmed 02/26/18] Albuterol Aerosols [Ventolin Aerosols] 2.5 mg INHALATION Q6HWA.RT 10/05/16 [History Confirmed 02/26/18] Pramipexole Di-HCl [Mirapex] 1 mg PO QHS 10/05/16 [History Confirmed 02/26/18] Levofloxacin [Levaquin] 750 mg PO DAILY #4 tab 12/30/17 [Rx Confirmed 02/26/18] Rivaroxaban [Xarelto] 20 mg PO DAILY 12/30/17 [History Confirmed 02/26/18] PFSH Medical History Pulmonary embolism (Acute) Social History Smoking Status: Former smoker HPI RIGHT SHOULDER: Details: CHECO GRAY is a 72 year old M here today for right shoulder pain. Patient notes that he has had right shoulder pain for about 6 weeks. He states that he had back surgery and was pulling himself up, at the time of his injury he felt a pop. He has pain over his posterior shoulder. He has increased pain with range of motion. He denies any weakness. Patient has full range of motion. Patient denies any xrays, MRI, injections or physical therapy. ROS Const Reports system reviewed and no additional complaints, except as docu Eyes Reports system reviewed and no additional complaints, except as docu ENT Reports system reviewed and no additional complaints, except as docu Card Reports system reviewed and no additional complaints, except as docu Resp Reports system reviewed and no additional complaints, except as docu GI Reports system reviewed and no additional complaints, except as docu Reports system reviewed and no additional complaints, except as docu Musc Reports joint pain Skin/Breast Reports system reviewed and no additional complaints, except as docu Neuro Yes system reviewed and no additional complaints, except as docu Psych Reports system reviewed and no additional complaints, except as docu Endo Reports system reviewed and no additional complaints, except as docu Ortho Exam Right Shoulder Testing: Positive Neer's and TTP AC Joint; negative Hawkin's, Speed's, TTP Biceps, Drop Arm, Yergason's, AROM-Forward Elevation 0-180, AROM-External Rotation at side 0-60 or empty can Internal Rotation: T12 Assessment AND Plan Problems 1. Rotator cuff impingement syndrome of right shoulder M75.41 Plan Obtained Xrays of patient's right shoulder. Personally reviewed Xrays. There is no obvious fracture, dislocation, or lucency noted. See chart for further details. Patient has full range of motion of the shoulder today in the office. His strength in the right shoulder is pretty comparable to the left with may be very minor decrease. He has very minor discomfort with Neer impingement sign. He does have some minor tenderness at the AC joint with a fall directly on the shoulder likely had some separation. He does have some minor arthritis at this joint as well. He has not seen improvement over the past 6 weeks. We discussed his options which are to do nothing, continue with other conservative therapy such as ice and anti-inflammatories, injection, and physical therapy. At this time I do not feel further imaging with MRI is warranted until we try some of the physical therapy. He does not wish to have an injection today in the office and therefore he was given a prescription for [facility]. He will follow- up in 6-8 weeks to recheck. Orders Orders: Plan Detail Follow Up 6 Weeks Coding Level of Care Code Off vis,est,level 3 Diagnoses Rotator cuff impingement syndrome of right shoulder M75.41 07/03/18 1623 <Electronically signed by Ayaan AUGUST> Date Ayaan AUGUST Cosigner Signature: Date (if applicable) CC: SHOULDER MIN 2 VIEWS Observed: 07/03/2018 Status: F Source: [place] 8:13 AM [facility] REPOSITORY [facility] Imaging Services [address] [place] [address] Shoulder min 2 Views MR#: [id number] Acct: [id number] Name: CHECO GRAY Carol Ann Rep #: [id number] : 1945 M 72 From: Ayaan Linder MD PCP: Ramesh BRUMFIELD,David Chi Status: REG CLI Study: Shoulder min 2 Views Date of Exam: 07/03/18 Exam# [id number] Ordering Dr: Ayaan Griggs HISTORY: shoulder pain after pulling self up from bed COMPARISON: None FINDINGS: XR Shoulder Min 3 views No dislocation or acute fracture. The right glenohumeral relationship appears normal. The right AC joint is grossly preserved. Remote fracture of the posterior lateral right fifth rib. RAD/Shoulder min 2 Views IMPRESSION: 1. Negative right shoulder. No acute disease. 2. Right fifth rib remote fracture. at 0810 Reported and signed by: Ayaan Linder MD Electronically Signed: Ayaan Linder, at 8:07 EST Tel , Service support , CC: MARIANGEL Griggs; David Chandler MD Manager Ethics: Signed ORTHOPEDIC VISIT Observed: 06/20/2018 Status: F Source: [place] REPORT 3:50 PM [facility] REPOSITORY [facility] Orthopaedics AND Sports Medicine [address] [place] [address] [address] [place] [address] OFFICE VISIT Date of Service: 06/17/18 MR#: [id number] Acct: [id number] Name: CHECO GRAY Rep #: [id number] : 1945 Provider: Margarita Otto MD Age/Sex: 72/M [place] [facility] Status: Signed Intake Intake Visit Reasons: Lumbar pain Is patient in pain?: No Allergies No Known Allergies Allergy (Verified 06/17/18 13:17) Medications Albuterol Inhaler [Ventolin Hfa] 1 - 2 puff INHALATION Q4H PRN PRN 10/20/13 [History Confirmed 02/26/18] Albuterol Aerosols [Ventolin Aerosols] 2.5 mg INHALATION Q6HWA.RT 10/05/16 [History Confirmed 02/26/18] Pramipexole Di-HCl [Mirapex] 1 mg PO QHS 10/05/16 [History Confirmed 02/26/18] Levofloxacin [Levaquin] 750 mg PO DAILY #4 tab 12/30/17 [Rx Confirmed 02/26/18] Rivaroxaban [Xarelto] 20 mg PO DAILY 12/30/17 [History Confirmed 02/26/18] PFSH Medical History Pulmonary embolism (Acute) Social History Smoking Status: Former smoker HPI Low back pain: Details: CHECO GRAY is a 72 year old M here today 2 months s/p revision L3-L4 laminectomy with removal of hardware and extend instrumented fusion of L3-S1 dos 04/25/18. Patient denies any pain currently and denies any radiating pain. He states he is 100% improved. He feels his strength is improving as well. He has numbness into his bilateral feet but it is improving. He denies any pain medications. Patient states that he injured his right shoulder while pulling himself up from bed following his surgery. He denies any fevers or chills. ROS Const Reports system reviewed and no additional complaints, except as docu Eyes Reports system reviewed and no additional complaints, except as docu ENT Reports system reviewed and no additional complaints, except as docu Card Reports system reviewed and no additional complaints, except as docu Resp Reports system reviewed and no additional complaints, except as docu GI Reports system reviewed and no additional complaints, except as docu Reports system reviewed and no additional complaints, except as docu Skin/Breast Reports system reviewed and no additional complaints, except as docu Neuro Yes system reviewed and no additional complaints, except as docu Psych Reports system reviewed and no additional complaints, except as docu Endo Reports system reviewed and no additional complaints, except as docu Ortho Exam Spine Neuro: Yes Straight Leg Raise (negative bilaterally) General: alert, oriented x3 Skin: Yes healed Capillary Refill <2sec: Yes Gait: normal gait (improved from preop), other (able to squat and rise) Sensory Exam: no sensory deficits noted DTR's: Rt Patellar: 1+, Lt Patellar: 2+, Rt Ankle: 2+, Lt Ankle: 2+ Plantar Reflexes: Downgoing: bilateral Coordination: Romberg test normal SPINE TESTING CERVICAL THORACIC LUMBAR SLR: Negative Musculoskeletal General: Yes normal gait Thoracic/Lumbar Spine: surgical scar(s) present, straight leg raise negative bilaterally, other (no significant tenderness throughout the lumbar spine) Strength 0=absent - 5=normal R Quadriceps (L2-4): 5 (5-/5), L Quadriceps (L2-4): 5, R Anterior Tibialis (L4-5): 5, L EHL (L5): 5, R Hamstrings (L5-S1): 5, L Hamstrings (L5-S1): 5, GS (S1): 5, L GS (S1): 5, R Peroneals (S1): 5, L Peroneals (S1): 5 Assessment AND Plan 1. S/P lumbar fusion Z98.1 Plan Imaging: XR lumbar spine 06/17/2018 stable instrumentation I/R/P: 1. status post revision L3-4 laminectomy with TLIF and instrumented fusion L3-S1 instrumentation 04/25/2018 2. h/o PE with temporary IVC filter 3. bilateral feet paresthesias, chronic 4. history of kidney and lung cancer Mr. Gray is doing well 8 weeks postop. He will continue restrictions. Follow up in 1 month with standing lumbar radiographs or sooner if issues arise. He will contact the radiologist at [facility] for removal of his retrievable IVC filter. Referral to Dr. Yajaira Stubbs for shoulder pain evaluation. Plan of care discussed. All questions answered. He is in understanding. Plan Detail Other Orders Orders: Coding Level of Care Code Global Post Op Diagnoses S/P lumbar fusion Z98.1 06/20/18 1550 <Electronically signed by Margarita Otto MD> Date Margarita Otto MD Cosigner Signature: Date (if applicable) CC: LUMBAR SPINE 2 OR 3 Observed: 06/17/2018 Status: F Source: [place] VIEWS 12:48 PM [facility] REPOSITORY [facility] Imaging Services [address] [place] [address] Lumbar Spine 2 or 3 Views MR#: [id number] Acct: [id number] Name: CHECO GRAY Rep #: [id number] : 1945 M 72 From: Venus Morales MD PCP: Ramesh BRUMFIELD,David Huffman Status: REG CLI Study: Lumbar Spine 2 or 3 Views Date of Exam: 06/17/18 Exam# [id number] Ordering Dr: Margarita Otto MD STUDY: X-RAY - LUMBAR SPINE REASON FOR EXAM: Male, 72 years old. Lower back pain TECHNIQUE: 2 view(s) of the lumbar spine were obtained. COMPARISON: 02/25/2018. 05/20/2017. FINDINGS: Status post pedicular fusion L3-S1 and laminectomy with interval placement of disc spacer placement at L3-L4 and solid bone fusion. Interval removal of stimulator remnant. Normal lumbar lordosis. There is no substantial scoliosis. Stable mild retrolisthesis L2 on L3. There is spondylosis of the endplates. There is multi-level disc space narrowing along L2-3, L3-4 L5, L5-S1 as on previous exam. Facet arthropathy L2-3, L3-4 extending to S1. There is neural foraminal narrowing L2-3, L3-4, less L4-L5, L5-S1 not sufficiently utilized. There is atherosclerotic calcification of the abdominal aorta without a demonstrated aneurysm. There is an inferior vena cava filter. RAD/Lumbar Spine 2 or 3 Views IMPRESSION: Interval postsurgical changes as above. Persistent facet arthropathy, neural foraminal narrowing L3- 4, disc space narrowing L4-5, L5-S1 and mild retrolisthesis L2 on L3. Electronically Signed: Venus Morales MD at 2:13 EST , Service support , CC: Margarita Otto MD; David Chandler MD Manager Ethics: Signed PROGRESS Observed: 06/17/2018 Status: COMPLETED Source: [place] 12:14 PM [facility] [place] REPOSITORY HNO ID: [id number] Author: Elena Walton Va Service: (none) Author Type: (none) Type: Progress Notes Filed: 06/17/2018 12:15 PM Note Text: Radiology Service Progress Note PATIENT NAME: Checo Gray DATE OF SERVICE: June 17, 2018 TIME: 12:14 PM PATIENT IDENTITY VERIFICATION COMPLETED USING TWO (2) METHODS: Patient confirmed name verbally and Date of . PATIENT GENDER DATA: Male PATIENT RELEVANT IMPLANT DATA REVIEWED: Not Applicable CONTRAST INDUCED NEPHROPATHY RISK FACTORS: Patient age > 60 years CREATININE: Creatinine Date Value Ref Range Status 09/24/2016 1.75 (H) 0.73 - 1.22 mg/dL Final Creatinine, Whole Blood (iSTAT) Date Value Ref Range Status 10/14/2017 1.60 (H) 0.70 - 1.40 mg/dL Final 04/12/2017 1.70 (H) 0.70 - 1.40 mg/dL Final 01/15/2017 1.90 (H) 0.70 - 1.40 mg/dL Final eGFR-All Other Races Date Value Ref Range Status 10/14/2017 43 . Final Comment: eGFR (Estimated GFR) Units of measure: mL/min/1.73 meters squared eGFR is derived from the reexpressed MDRD Study equation using the following parameters: serum creatinine, age, gender and race. The creatinine assay has been calibrated to be traceable to IDMS. An eGFR <60 mL/min/1.73m2 for >3 months is consistent with chronic kidney disease. Refer to KDOQI guidelines for clinical interpretation. In patients with unstable renal function, e.g. those with acute kidney injury, the eGFR may not accurately reflect actual GFR. eGFR- Date Value Ref Range Status 10/14/2017 52 Final P.O.C.T. RESULTS: POC done: Yes, See Lab Tab June 17, 2018 RADIOLOGIST NOTIFIED?: No ALLERGIES: Reviewed and unchanged CONTRAST ALLERGY: NO. PERIPHERAL IV ACCESS: Ambulatory: IV type: A peripheral IV was started in the Left antecubital site with a Angio cath: 22 gauge., Site assessment: Clean,Dry and Intact, Site disposition Discontinued RADIOLOGY DEPARTMENT: CT; Exam(s) Completed: Chest SIGNED BY: Elena Walton Ct June 17, 2018 12:[address] CHEST W IVCON Observed: 06/17/2018 Status: F Source: [place] 11:34 AM [facility] [place] REPOSITORY * * *Final Report* * * DATE OF EXAM: Jun 17 2018 11:34AM [facility] 0539 - CT CHEST W IVCON / PROCEDURE REASON: multiple diagnoses * * * * Physician Interpretation * * * * EXAMINATION: CHEST CT WITH CONTRAST CLINICAL HISTORY: Malignant neoplasm of upper lobe,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 or lung Acute embolism and thrombosis of unspecified vein Technique: Spiral CT acquisition of the chest from the thoracic inlet to the upper abdomen following IV contrast. MQ: CTCWR_5 Contrast: 50 mL Omnipaque [address] Dose-Length Product: 475 mGy*cm CT Dose Reduction Employed: Automated exposure control(AEC) and iterative recon Comparison: 10/14/2017 RESULT: Limitations: None. Lines, tubes, and devices: None. Lung parenchyma and pleura: Postoperative appearance on the right is stable. 4 mm right lung nodule on image 105 is unchanged. 4 mm nodule within the right lung on image 81 is also stable. Foci of linear indeterminate density are stable and likely related to scarring or atelectasis. No developing lung nodule or mass on either side. No significant pleural fluid. Thoracic inlet, heart, and mediastinum: No developing lymphadenopathy in the axillary, mediastinal, or hilar regions. No pericardial fluid is seen. Thrombus within the azygos, brachiocephalic vein, and superior vena cava unchanged. Bones and soft tissues: No destructive bone lesion. Chest wall is unremarkable. Partially visualized spinal hardware in the upper abdomen. Upper abdomen: No abnormality in the imaged upper abdomen. IVC filter is in place. IMPRESSION: Stable 4 mm nodules in the right lung. Postoperative change from right upper lobectomy. No evidence of developing suspicious mass or adenopathy in the chest. Stable appearing thrombus within the left brachiocephalic vein, superior vena cava and azygos vein as described previously. Manager Ethics: ROBERTO Transcribe Date/Time: Jun 18 2018 3:49P Dictated by : ITZEL CANNON MD This examination was interpreted and the report reviewed and electronically signed by: ITZEL CANNON MD on Jun 18 2018 3:56PM EST [id number] KIDNEY AND BLADDER Observed: 06/13/2018 Status: F Source: [place] 8:48 AM [facility] REPOSITORY [facility] [place] [address] Kidney and Bladder MR#: [id number] Acct: [id number] Name: CHECO GRAY Rep #: [id number] : 1945 M 72 From: Trey Jaquez PCP: Ramesh BRUMFIELD,David Chi Status: REG CLI Study: Kidney and Bladder Date of Exam: 06/13/18 Exam# [id number] Ordering Dr: Amy Briggs DO STUDY: RENAL ULTRASOUND - COMPLETE REASON FOR EXAM: Male, 72 years old. Nephrectomy TECHNIQUE: Ultrasound evaluation of the kidneys was performed with real-time and static arriaga-scale imaging. COMPARISON: None. FINDINGS: RIGHT KIDNEY: There has been a RIGHT nephrectomy. LEFT KIDNEY: Normal location of the left kidney, which is normal in size. The left kidney measures 12.8 x 6.1 x 7 cm. There is a normal cortex of the left kidney. The renal cortex measures 2 cm. There is no left renal mass or cyst. There are no left renal calculi. There is no left hydronephrosis. DISTAL LEFT URETER: There is non-visualization of the distal left ureter. There is no demonstrated left ureterovesical junction calculus. There is a visualized left ureteral jet. Urinary bladder is unremarkable. US/Kidney and Bladder IMPRESSION: RIGHT KIDNEY: There has been a RIGHT nephrectomy. LEFT KIDNEY: Normal. Electronically Signed: Trey Jaquez MD at 6:14 EST , Service support , CC: Amy Briggs DO; David Chandler MD Manager Ethics: Signed RENAL PROFILE Collected: 06/06/2018 Status: F Source: [place] 9:32 AM [facility] REPOSITORY TYPE CODE TESTS RESULT OUT OF RANGE REFERENCE UNITS LAB L501.0100 74-106 mg/dL Normal GLU 75 Result Comment: Please note revised GLUCOSE reference range effective 2017. LAB L501.1000 7-18 mg/dL High BUN 22 LAB L501.1100 0.70-1.30 mg/dL High CREAT,SERUM 1.81 Result Comment: The validity of the calculated GFR AND GFRAA in patients over 70 years has not been determined. Clinical correlation is essential. LAB L501.1110 >60 mL/min Low EST GFR 39 Result Comment: Non- GFR Calc LAB L501.1115 >60 mL/min Low EST GFR - AA 48 Result Comment: GFR Calc LAB L501.1300 10-20 RATIO Normal BUN/CRE 12.2 LAB L501.1800 3.2-5.0 g/dL Normal ALB 3.3 LAB L501.2200 8.5-10.1 mg/dL CA Normal 8.6 LAB L501.2300 2.5-4.9 mg/dL Normal PHOS 2.7 LAB L501.5300 136-145 mmol/L NA Normal 140 LAB L501.5600 3.5-5.1 mmol/L K Normal 4.0 LAB L501.5900 98-107 mmol/L CL Normal 106 LAB L501.6100 21.0-32.0 mmol/L Normal CO2 27.0 Performed By: #### L500.3600 #### [facility] [address] [place] [address], [id number] CBC-COMPLETE BLOOD CNT Collected: 06/06/2018 Status: F Source: [place] NO DIFF 9:32 AM [facility] REPOSITORY TYPE CODE TESTS RESULT OUT OF RANGE REFERENCE UNITS LAB L100.1000 4.4-11.0 K/mm3 Normal WBC 7.1 LAB L100.1200 4.6-6.2 M/mm3 Normal RBC 4.75 LAB L100.1300 13.0-16.5 g/dl Normal HGB 14.5 LAB L100.1400 40-54 % Normal HCT 43.7 LAB L100.1500 80-94 fL Normal MCV 92.0 LAB L100.1600 27.0-32.0 pg Normal MCH 30.5 LAB L100.1700 32-36 g/gl Normal MCHC 33.2 LAB L100.1810 11.6-14.6 % Normal RDW CV 13.6 LAB L100.1820 35.1-43.9 fl High RDW SD 44.9 LAB L100.1900 150-450 K/mm3 Normal PLT 214 LAB L100.2000 6.2-12.0 fl Normal MPV 11.3 Performed By: #### L100.0500 #### [facility] [address] [facility], [place], [address] PTHIN Collected: 06/06/2018 Status: F Source: [place] 9:32 AM [facility] REPOSITORY TYPE CODE TESTS RESULT OUT OF RANGE REFERENCE UNITS LAB L509.1000 18.4-80.1 pg/mL Normal PTHIN 54.6 Performed By: #### L509.1000 #### [facility] [address] [facility] [place], [address] HEMOGRAM (CBC AND Collected: 04/27/2018 Status: F Source: [facility] [place]) 3:[address] [facility] REPOSITORY TYPE CODE TESTS RESULT OUT OF REFERENCE UNITS RANGE LAB WBC 4.23-9.07 K/uL WBC Count High 11.97 LAB RBC 4.63-6.08 M/uL Low RBC Count 3.80 LAB HGB 13.7-17.5 g/dL Low Hemoglobin 11.9 LAB HCT 40.1-51.0 % Low Hematocrit 35.2 LAB MCV 79.0-92.2 fL Mean Cell High Volume 92.6 LAB MCH 25.7-32.2 pg Mean Cell Hgb 31.3 LAB MCHC 32.3-36.5 g/dL Mean Cell Hgb Conc 33.8 LAB RDW 11.6-14.4 % RBC Distribution 13.6 LAB PLT 163-337 K/uL Low Platelet Count 133 LAB MPV 9.4-12.4 fL Mean Platelet Volume 10.7 LAB NRBC 0.0-0.2 /100 WBC NUCLEATED RBC 0.0 Performed By: #### HEMOGC, C7C, IPB, MGO #### [facility] [address] [place] [address] [place] [address] [address] [place], [place] [address] CHM7,CA Collected: 04/27/2018 Status: F Source: [facility] 3:[address] [facility] REPOSITORY TYPE CODE TESTS RESULT OUT OF REFERENCE UNITS RANGE LAB BUN 7-22 mg/dL BUN High 27 LAB NA 133-143 mmol/L Sodium 135 LAB K 3.5-5.0 mmol/L Potassium 4.0 LAB CL 98-108 mmol/L Chloride 103 LAB CO2 22-30 mmol/L Carbon Dioxide 23 LAB GLUC 70-99 mg/dL Glucose High 108 LAB CREA 0.70-1.30 mg/dL High Creatinine 1.60 LAB GAP 7-17 mmol/L Anion Gap 13 LAB BC BUN/CREA Ratio 17 LAB CA 8.6-10.5 mg/dL Low Calcium 8.1 LAB [facility] 278-305 mOsm/kg Osmolality 289 (Calc) LAB GFR >60 mL/min/1.73 Low sqM Est GFR,non 43 [place] LAB GFRA >60 mL/min/1.73 Low sqM Est GFR, 52 Performed By: #### HEMOGC, C7C, IPB, MGO #### [facility] [address] [place] [address] [address] [address] INORGANIC PHOSPHATE Collected: 04/27/2018 Status: F Source: [facility] 3:[address] [facility] REPOSITORY TYPE CODE TESTS RESULT OUT OF REFERENCE UNITS RANGE LAB IP 2.2-4.6 mg/dL Inorg Phosphate 2.2 Performed By: #### HEMOGC, C7C, IPB, MGO #### [facility] [address] [place] [address] [address] [address] MAGNESIUM Collected: 04/27/2018 Status: F Source: [facility] 3:[address] [facility] REPOSITORY TYPE CODE TESTS RESULT OUT OF REFERENCE UNITS RANGE LAB MG 1.6-2.6 mg/dL Magnesium 1.8 Performed By: #### HEMOGC, C7C, IPB, MGO #### [facility] [address] [place] [address] XR SPINE LUMBOSACRAL AP Observed: 04/26/2018 Status: F Source: [facility] AND LATERAL 12:[address] [facility] REPOSITORY EXAM: XR SPINE LUMBOSACRAL AP AND LATERAL, 04/26/2018 11:35 AM COMPARISON: Lumbar spine CT April 16, 2018 CLINICAL INDICATIONS: s/p lumbar fusion-- needs to standing RELEVANT CLINICAL HISTORY: AP/LAT STANDING; FINDINGS: 2 images obtained in the standing position. Postsurgical changes are demonstrated from dorsal fixation from L3 to S1 with bilateral rods and paired pedicle screws. Stable orthopedic hardware. Disc spacers at the L3-4, L4-5, and L5-S1 are demonstrated. Posterior- lateral bone graft deposition is evident. Stable laminectomy defect. A dorsal drain is in place. There is minimal retrolisthesis of L2 on L3. Disc space narrowing at this level appears stable. IMPRESSION: Postsurgical changes related to L3-S1 posterior fusion. GRAM (CBC AND Collected: 04/26/2018 Status: F Source: [facility]) 1:[address] [facility] REPOSITORY TYPE CODE TESTS RESULT OUT OF REFERENCE UNITS RANGE LAB WBC 4.23-9.07 K/uL WBC Count High 12.58 LAB RBC 4.63-6.08 M/uL Low RBC Count 4.11 LAB HGB 13.7-17.5 g/dL Low Hemoglobin 12.7 LAB HCT 40.1-51.0 % Low Hematocrit 38.6 LAB MCV 79.0-92.2 fL Mean Cell High Volume 93.9 LAB MCH 25.7-32.2 pg Mean Cell Hgb 30.9 LAB MCHC 32.3-36.5 g/dL Mean Cell Hgb Conc 32.9 LAB RDW 11.6-14.4 % RBC Distribution 13.5 LAB PLT 163-337 K/uL Low Platelet Count 162 LAB MPV 9.4-12.4 fL Mean Platelet Volume 10.7 LAB NRBC 0.0-0.2 /100 WBC NUCLEATED RBC 0.0 Performed By: #### HEMOGC, C7C, IPB, MGO #### [facility] [address] [place] [address] [place] [address],[place] Collected: 04/26/2018 Status: F Source: [facility] 1:[address] [facility] REPOSITORY TYPE CODE TESTS RESULT OUT OF REFERENCE UNITS RANGE LAB BUN 7-22 mg/dL BUN High 25 LAB NA 133-143 mmol/L Sodium 139 LAB K 3.5-5.0 mmol/L Potassium 4.4 LAB CL 98-108 mmol/L Chloride 105 LAB CO2 22-30 mmol/L Carbon Dioxide 28 LAB GLUC 70-99 mg/dL Glucose 90 LAB CREA 0.70-1.30 mg/dL High Creatinine 1.83 LAB GAP 7-17 mmol/L Anion Gap 10 LAB BC BUN/CREA Ratio 14 LAB CA 8.6-10.5 mg/dL Low Calcium 8.5 LAB [facility] 278-305 mOsm/kg Osmolality 295 (Calc) LAB GFR >60 mL/min/1.73 Low sqM Est GFR,non 37 [place] LAB GFRA >60 mL/min/1.73 Low sqM Est GFR, 44 Performed By: #### HEMOGC, C7C, IPB, MGO #### [facility] [address] [place] [address] [place] [address] INORGANIC PHOSPHATE Collected: 04/26/2018 Status: F Source: [facility] 1:[address] [facility] REPOSITORY TYPE CODE TESTS RESULT OUT OF REFERENCE UNITS RANGE LAB IP 2.2-4.6 mg/dL Inorg Phosphate 2.5 Performed By: #### HEMOGC, C7C, IPB, MGO #### [facility] [address] [place] [address] [place] [address] MAGNESIUM Collected: 04/26/2018 Status: F Source: [facility] 1:[address] [facility] REPOSITORY TYPE CODE TESTS RESULT OUT OF REFERENCE UNITS RANGE LAB MG 1.6-2.6 mg/dL Magnesium 2.0 Performed By: #### HEMOGC, C7C, IPB, MGO #### [facility] [address] [place] [address] [address] [address] CRITICAL CARE Collected: 04/25/2018 Status: F Source: [facility] BATTERY, ARTERIAL 2:[address] [facility] REPOSITORY TYPE CODE TESTS RESULT OUT OF RANGE REFERENCE UNITS LAB PH 7.35-7.45 PH 7.42 Result Comment: Called to and read back by AIDE ORLANDO AT SatApr 25 14:31:42 2017 LAB PCO2 32-48 mm Hg PCO2 39 LAB PO2 83-108 mm Hg PO2 279 High LAB HCO3 22-26 mmol/L Bicarbonate 25 LAB OSAT 94-98 % O2 100 High Saturation LAB BASE 0-3.0 mmol/L Base Excess 0.6 LAB BASED 0-3.0 mmol/L Base Not Deficit applicable LAB FIO2 % FIO2 FIO2 not available LAB BGNA 133-143 mmol/L Whole Blood 137 Sodium LAB BGK 3.5-5.0 mmol/L Whole Blood 4.1 Potassium LAB BGGLU 70-99 mg/dL WHOLE BLD 106 High GLUC LAB BGLACT 0.5-1.6 mmol/L Lactate, 1.2 Whole Blood LAB BGHGB 13.7-17.5 g/dL BLD GAS HGB 15.0 LAB BGH 40.1-51.0 % BLD GAS HCT 46 LAB BGICA 4.60-5.30 mg/dL Whole Bld 4.66 Ionized CA LAB SPECBG Specimen Arterial type Performed By: #### CRITB #### [facility] [address] [address] PT*PTT Collected: 04/25/2018 Status: F Source: [facility] 2:[address] [facility] REPOSITORY TYPE CODE TESTS RESULT OUT OF RANGE REFERENCE UNITS LAB PT 11.9-14.2 sec PT 13.9 LAB INR 0.9-1.1 INR 1.1 LAB PTT 24.0-34.3 sec PTT 30.1 Performed By: #### PTPTT, FIB #### [facility] [address] [address] FIBRINOGEN-CLOTTABLE Collected: Status: F Source: [facility] 04/25/2018 2:[address] [facility] REPOSITORY TYPE CODE TESTS RESULT OUT OF RANGE REFERENCE UNITS LAB FIB 220-410 mg/dL 297 Fibrinogen-C lottable Performed By: #### PTPTT, FIB #### [facility] [address] [address] BLD GAS 9 Collected: 04/25/2018 Status: F Source: [facility] 12:[address] [facility] REPOSITORY TYPE CODE TESTS RESULT OUT OF REFERENCE UNITS RANGE LAB PH 7.35-7.45 PH 7.42 LAB PCO2 32-48 mm Hg PCO2 38 LAB PO2 83-108 mm Hg PO2 267 High LAB BGHGB 13.7-17.5 g/dL BLD GAS 15.5 HGB LAB BGH 40.1-51.0 % BLD GAS 48 HCT LAB BASE 0-3.0 mmol/L Base 0.3 Excess LAB BASED 0-3.0 mmol/L Base Not Deficit applicable LAB BGNA 133-143 mmol/L Whole 135 Blood Sodium LAB BGK 3.5-5.0 mmol/L Whole 3.5 Blood Potassium LAB BGICA 4.60-5.30 mg/dL Whole 4.61 Bld Ionized CA LAB BGGLU 70-99 mg/dL WHOLE 106 High BLD GLUC LAB HCO3 22-26 mmol/L 24 Bicarbonate LAB OSAT 94-98 % O2 100 High Saturation LAB SPECBG Specimen type Arterial LAB FIO2 % FIO2 Not applicable Performed By: #### GAS9 #### [place] [address] Observed: 04/25/2018 Status: F Source: [facility] TRANSFUSE FFP 11:[address] [facility] REPOSITORY CROSSMATCH EXPIRATION: 04/29/2018 UNIT NUMBER: [id number] BLOOD COMPONENT TYPE: Thawed [id number] STATUS OF UNIT: REL FROM [facility]OC TRANSFUSION STATUS: OK TO TRANSFUSE UNIT NUMBER: [id number] BLOOD COMPONENT TYPE: Thawed [id number] STATUS OF UNIT: REL FROM ALLOC TRANSFUSION STATUS: OK TO TRANSFUSE Performed By: #### TFFP #### [facility] [address] [address] VENA CAVA FILTER Observed: 04/21/2018 Status: F Source: [facility] PLACEMENT 5:[address] [facility] REPOSITORY EXAM: IR VENA CAVA FILTER PLACEMENT, 04/21/2018 13:38 PM CLINICAL INDICATIONS: M48.061:Spinal stenosis of lumbar region, unspecified whether neurogenic claudication present I26.99:Other pulmonary embolism without acute cor pulmonale, unspecified chronicity Z91.89:At high risk for deep venous thrombosis MEDICATIONS: 12:57 PM 04/21/18 fentaNYL (SUBLIMAZE) injection 300 mcg 50 mcg Route: Intravenous ; 12:57 PM 04/21/18 midazolam (VERSED) injection 10 mg 1 mg Route: Intravenous ; 1:04 PM 04/21/18 fentaNYL (SUBLIMAZE) injection 300 mcg 50 mcg Route: Intravenous ; 1:04 PM 04/21/18 midazolam (VERSED) injection 10 mg 1 mg Route: Intravenous ; 1:18 PM 04/21/18 midazolam (VERSED) injection 10 mg 1 mg Route: Intravenous; 1:18 PM 04/21/18 fentaNYL (SUBLIMAZE) injection 300 mcg 50 mcg Route: Intravenous; 1:28 PM 04/21/18 lidocaine (PF) 2 % injection 3 mL Route: Other; Total Fluoro Time: 1.7 minutes Operators: Celso Lagunas M.D. Consent: Following discussion of the risks, benefits and alternatives of the procedure, written informed consent was obtained. Moderate Sedation: I performed Moderate Sedation which included the presence of a nurse that assisted in monitoring the patients level of consciousness and physiological status. After administration of sedative medication(s), I spent 15 minutes of continuous [id number] time with the patient. COMPARISON: No prior studies available for comparison. TIME OUT: Prior to the procedure a time out was performed in the presence of the patient and all personnel involved in this case. The patient identity, procedure type, procedure side/site, and allergies were verified. ............................................................... TECHNIQUE: Position: The patient was transferred to the IR laboratory and was positioned supine on the procedural table. The right side of the neck was prepped and draped using maximum sterile barrier technique. This consisted of cap, mask, hand hygiene, sterile gown and gloves, 2% Chlorhexidine solution for cutaneous antisepsis and occlusive sterile draping of the field. Procedure: Using direct ultrasound guidance, access was gained into the right internal jugular vein. A guide wire was advanced into the inferior vena cava. A pigtail catheter was advanced over the wire into the distal IVC/common iliac vein region and an inferior venacavogram was performed using carbon dioxide. Carbon dioxide was used in light of patient's elevated creatinine and solitary kidney. Subsequently, the introducer sheath of a Jessica filter was advanced into the inferior vena cava. The Jessica filter was loaded onto the sheath. It was positioned under fluoroscopy such that the final position of the legs were immediately below the renal veins and the apex was approximately at the level of the confluence of the renal veins with the IVC. The filter was deployed. ? A post-deployment image was obtained FINDINGS: The IVC is patent. The final position of the apex of the filter is at approximately the level of the renal veins. The legs are well distributed. The long axis of the filter is in line with that of the IVC. IMPRESSION: Successful placement of a Culberson infrarenal IVC Filter using fluoroscopic guidance. I was in the room and personally performed the entire procedure myself. Most Recent Value Fluoro time: 1.7 minutes Rad Dose: 175 mGy IR [employer] Event Details User 12:46 PM 04/21/18 Timeout: Sign-in Verified by Marielle Singh RN at 04/21/2018 12:46 PM CW 12:57 PM 04/21/18 fentaNYL (SUBLIMAZE) injection 300 mcg 50 mcg Given Rate: 0 Route: Intravenous Comment: per JUDIE FRANKLIN 12:57 PM 04/21/18 midazolam (VERSED) injection 10 mg 1 mg Given Rate: 0 Route: Intravenous Comment: per JUDIE FRANKLIN 1:04 PM 04/21/18 fentaNYL (SUBLIMAZE) injection 300 mcg 50 mcg Given Rate: 0 Route: Intravenous Comment: per JUDIE FRANKLIN 1:04 PM 04/21/18 midazolam (VERSED) injection 10 mg 1 mg Given Rate: 0 Route: Intravenous Comment: raimundo FRANKLIN 1:12 PM 04/21/18 Timeout: TimeOut Verified by Marielle Singh RN at 04/21/2018 1:12 PM CW 1:18 PM 04/21/18 midazolam (VERSED) injection 10 mg 1 mg Given Rate: 0 Route: Intravenous CN 1:18 PM 04/21/18 fentaNYL (SUBLIMAZE) injection 300 mcg 50 mcg Given Rate: 0 Route: Intravenous CN 1:25 PM 04/21/18 Timeout: Sign-out Verified by Marielle Singh RN at 04/21/2018 1:38 PM CW 1:28 PM 04/21/18 lidocaine (PF) 2 % injection 3 mL Given Rate: 0 Route: Other HK IR Physician Event Details User 12:46 PM 04/21/18 Timeout: Sign-in Verified by Marielle Singh RN at 04/21/2018 12:46 PM CW 1:12 PM 04/21/18 Timeout: TimeOut Verified by Marielle Singh RN at 04/21/2018 1:12 PM CW 1:25 PM 04/21/18 Timeout: Sign-out Verified by Marielle Singh RN at 04/21/2018 1:38 PM CW PROGRESS Observed: 04/18/2018 Status: COMPLETED Source: [place] 9:59 AM [facility] REPOSITORY HNO ID: [id number] Author: Xuan Lora Service: (none) Author Type: Nurse Practitioner Type: Progress Notes Filed: 04/18/2018 10:55 AM Note Text: Chief Complaint Patient presents with: Established Patient HPI: Checo Gray is a 72 year old male who presents here today for lung cancer. Per Dr. Noble's previous note: H/o RCC?(right nephrectomy at [facility] 2004; follows up with Dr. Hernandez), superficial bladder cancer, LUIS CARLOS?(underwent uvulopalatopharyngoplasty by Dr. Aguilera),?COPD?and gout. ?? He had been under the care of Dr. Freedman of for several year history of a right upper lobe nodule. This had been present since at least 2011. CT scan at that time showed it measured approximately 3.3 x 2.4 x 3.2 cm. In 2014 it was noted to increase to 4.3 x 2.7 x 3.0 cm. PET scan was performed and it demonstrated an SUV of 2 for that lesion. ?? Patient underwent a CT chest on 05/07/2016. The inhomogeneous soft tissue density in the posterior medial segment of the right upper lobe was not noted to change in size and measured 3.6 x 3.8 x 4.8 cm. ?? Patient was referred to a thoracic surgeon at [facility]. He ultimately underwent a?right thoracotomy with right upper lobe wedge resection and immediate right upper lobectomy along with mediastinal lymphadenectomy on 08/14/2016. ?? 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 The tumor was noted to invade into and focally through the visceral pleura. The staple resection margin was positive. In the lobectomy specimen there was an invasive moderately differentiated adenocarcinoma and bronchoalveolar adenocarcinoma measuring a 4.6 cm region adjacent to the staple line. Ten intrapulmonary lymph nodes were noted to be negative. Lymph nodes from level CDLVI and 8 were all negative for tumor. Final margins were all negative. The bronchial margin was 3 mm the vascular margin was 3 mm and the parenchymal margin was 3 mm. Lymphovascular invasion was not identified. The tumor was unifocal although removed in 2 sections. Final pathologic staging was pT3 N0. ?? Previous?therapy: 1) Adjuvant carbo/paclitaxel. Last treatment?01/16/17. ? CT chest delayed d/t pt. had CT for his back surgery this week. ? I am getting a filter on Saturday then my surgery is on Saturday. I had back surgery 20 years ago-hopefully this will help. ? Appetite:good Energy level:It's low because of my back pain. I couldn't play golf this summer-I haven't been able to do much. Denies fevers or recent illness. Resp:denies cough or sob Cardiac:denies chest pain/palpitations GI:denies abd pain, n/v, moving bowels regularly :denies dysuria/hematuria Extrem:denies chronic back pain Neuro:neuropathy to vumf-zeyti-na goes down my right leg- they think it's my back. Skin:denies rashes/lesions Heme:denies bleeding The ROS is otherwise negative. Past medical history, appointments, medications, allergies reviewed. No changes. EXAM: BP 147/99 Pulse 74 Temp 36.4 ?C (97.6 ?F) (Oral) Wt 100.9 kg (222 lb 8 oz) BMI 28.38 kg/m? APPEARANCE Well appearing, alert, in no acute distress, well-hydrated, well nourished. HEART RRR with normal S1 and S2, no murmurs LUNG clear to auscultation LYMPH NODES No cervical lymphadenopathy, No supraclavicular lymphadenopathy and No axillary lymphadenopathy. ABDOMEN bowel sounds normoactive, no bruits, soft, non-tender, non-distended, without organomegaly or palpable masses EXTREMITIES No edema NEURO Awake, alert and oriented x 3, Normal gait and No involuntary motions. SKIN Skin color, texture, turgor normal, no suspicious rashes or lesions ASSESSMENT/PLAN: 1. 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 2. Other acute pulmonary embolism without acute cor pulmonale (HCC) - ICD9: 415.19, ICD10: I26.99 - No concerning findings on exam. - Continue xarelto. - CT chest as scheduled in Jun. - Follow up in 6 months-pending CT in Jun. - Pt. aware to call office with any questions/concerns. The patient indicates understanding of these issues and agrees with the plan. Xuan Lora APRN.CHRISTIANO CNOVSP Observed: 04/18/2018 Status: COMPLETED Source: [place] 9:00 AM [facility] REPOSITORY Visit (SP) Office (RAFAELA) CHECO GRAY ([id number]) 1945 M Date Time Provider Department 04/18/18 9:00 AM XUAN LORA (CHRISTIANO) RAFAELA During your visit today, we recorded the following information about you: Temperature Pulse Blood pressure Weight 97.6 degrees 74/minute 147/99 100.9 kg Charmaine Nilda MARTINEZ 04/18/2018 9:59 AM Signed Est patient. Discuss upcoming back surgery, Xarelto on hold. Patient having vena cava filter placed on Saturday and back surgery next Saturday. Charmaine Lora, ELECTRIC APPLIANCE INSTALLER.MOLDER WAX BALL 04/18/2018 10:55 AM Signed Chief Complaint Patient presents with: Established Patient HPI: Checo Gray is a 72 year old male who presents here today for lung cancer. Per Dr. Noble's previous note: H/o RCC?(right nephrectomy at [facility] 2004; follows up with Dr. Hernandez), superficial bladder cancer, LUIS CARLOS?(underwent uvulopalatopharyngoplasty by Dr. Aguilera),?COPD?and gout. ?? He had been under the care of Dr. Freedman of for several year history of a right upper lobe nodule. This had been present since at least 2011. CT scan at that time showed it measured approximately 3.3 x 2.4 x 3.2 cm. In 2014 it was noted to increase to 4.3 x 2.7 x 3.0 cm. PET scan was performed and it demonstrated an SUV of 2 for that lesion. ?? Patient underwent a CT chest on 05/07/2016. The inhomogeneous soft tissue density in the posterior medial segment of the right upper lobe was not noted to change in size and measured 3.6 x 3.8 x 4.8 cm. ?? Patient was referred to a thoracic surgeon at [facility]. He ultimately underwent a?right thoracotomy with right upper lobe wedge resection and immediate right upper lobectomy along with mediastinal lymphadenectomy on 08/14/2016. ?? 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 The tumor was noted to invade into and focally through the visceral pleura. The staple resection margin was positive. In the lobectomy specimen there was an invasive moderately differentiated adenocarcinoma and bronchoalveolar adenocarcinoma measuring a 4.6 cm region adjacent to the staple line. Ten intrapulmonary lymph nodes were noted to be negative. Lymph nodes from level CDLVI and 8 were all negative for tumor. Final margins were all negative. The bronchial margin was 3 mm the vascular margin was 3 mm and the parenchymal margin was 3 mm. Lymphovascular invasion was not identified. The tumor was unifocal although removed in 2 sections. Final pathologic staging was pT3 N0. ?? Previous?therapy: 1) Adjuvant carbo/paclitaxel. Last treatment?01/16/17. ? CT chest delayed d/t pt. had CT for his back surgery this week. ? I am getting a filter on Saturday then my surgery is on Saturday. I had back surgery 20 years ago-hopefully this will help. ? Appetite:good Energy level:It's low because of my back pain. I couldn't play golf this summer-I haven't been able to do much. Denies fevers or recent illness. Resp:denies cough or sob Cardiac:denies chest pain/palpitations GI:denies abd pain, n/v, moving bowels regularly :denies dysuria/hematuria Extrem:denies chronic back pain Neuro:neuropathy to dffq-zfnha-sk goes down my right leg- they think it's my back. Skin:denies rashes/lesions Heme:denies bleeding The ROS is otherwise negative. Past medical history, appointments, medications, allergies reviewed. No changes. EXAM: BP 147/99 Pulse 74 Temp 36.4 ?C (97.6 ?F) (Oral) Wt 100.9 kg (222 lb 8 oz) BMI 28.38 kg/m? APPEARANCE Well appearing, alert, in no acute distress, well- hydrated, well nourished. HEART RRR with normal S1 and S2, no murmurs LUNG clear to auscultation LYMPH NODES No cervical lymphadenopathy, No supraclavicular lymphadenopathy and No axillary lymphadenopathy. ABDOMEN bowel sounds normoactive, no bruits, soft, non-tender, non-distended, without organomegaly or palpable masses EXTREMITIES No edema NEURO Awake, alert and oriented x 3, Normal gait and No involuntary motions. SKIN Skin color, texture, turgor normal, no suspicious rashes or lesions ASSESSMENT/PLAN: 1. 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 2. Other acute pulmonary embolism without acute cor pulmonale (HCC) - ICD9: 415.19, ICD10: I26.99 - No concerning findings on exam. - Continue xarelto. - CT chest as scheduled in Jun. - Follow up in 6 months-pending CT in Nov. - Pt. aware to call office with any questions/concerns. The patient indicates understanding of these issues and agrees with the plan. Xuan Lora APRN.MOLDER WAX BALL Referring Provider: XUAN LORA (MOLDER WAX BALL) [[id number]] Allergies As of Date: 04/18/2018 (No Known Allergies) Date Reviewed: 04/18/2018 Reviewed by: Xuan (Christiano) Geno - Fully Assessed Reason for Visit: Established Patient [175] Primary Visit Diagnosis: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) [C34.11] Other Visit Diagnosis:Other acute pulmonary embolism without acute cor pulmonale (HCC) [I26.99] Follow-up and Disposition History Recorded Prescriptions as of 04/18/2018 Sig: BUDESONIDE-FORMOTEROL HFA 160* Inhale 2 Puffs as instructed * ALBUTEROL SULFATE HFA 90 MCG/* Inhale 2 Puffs as instructed * TEMAZEPAM 30 MG CAPSULE Take by mouth at bedtime as * ACETAMINOPHEN 500 MG TABLET Take 500 mg by mouth twice da* PANTOPRAZOLE 40 MG TABLET,DEL* Take 40 mg by mouth once bogdan* FEBUXOSTAT 40 MG TABLET Take 40 mg by mouth once bogdan* TESTOSTERONE CYPIONATE 100 MG* One IM injection twice monthl* PRAMIPEXOLE 0.5 MG TABLET Take two tablets by mouth twi* RIVAROXABAN 20 MG TABLET Take 1 tablet by mouth daily * Medication notes this encounter RIVAROXABAN 20 MG TABLET >> Charmaine Munguia LPN 04/18/2018 9:30 AM >> CHARMAINE MUNGUIA LPN SatApr 18, 2018 9:30 AM On hold d/t recent back surgery >> Charmaine Munguia LPN 04/18/2018 9:33 AM >> CHARMAINE MUNGUIA LPN SatApr 18, 2018 9:33 AM On hold d/t upcoming back surgery RIVAROXABAN 15 MG TABLET >> Charmaine Munguia LPN 04/18/2018 9:29 AM >> CHARMAINE MUNGUIA LPN SatApr 18, 2018 9:29 AM On hold d/t recent back surgery >> Charmaine Munguia LPN 04/18/2018 9:33 AM >> CHARMAINE MUNGUIA LPN SatApr 18, 2018 9:33 AM On hold d/t upcoming back surgery Problem List As Of Date 04/18/2018 Noted Resolved 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) [C34.1*INVALID FOR* Skin cancer [C44.90] Pulmonary embolus (HCC) [I26.99] INVALID FOR* Visit Notes: >> Charmaine Munguia MICHELLE SatApr 18, 2018 9:34 AM Status: Signed Est patient. Discuss upcoming back surgery, Xarelto on hold. Patient having vena cava filter placed on Saturday and back surgery next Saturday. Charmaine Munguia MICHELLE Encounter Status:Closed by XUAN LORA CNP on 04/18/18 CT SPINE LUMBAR Observed: 04/17/2018 Status: F Source: [facility] WITHOUT CONTRAST 10:[address] [facility] REPOSITORY EXAM: CT SPINE LUMBAR WITHOUT CONTRAST, 04/16/2018 15:02 PM COMPARISON: MRI of the lumbar spine from March 03, 2018. CLINICAL INDICATIONS:72 years Male surgical planning; RELEVANT CLINICAL HISTORY: M48.061:Spinal stenosis of lumbar region, unspecified whether neurogenic claudication present TECHNIQUE: A series of transaxial multislice computerized tomographic thin section source images of the lumbar spine are obtained with helical technique without contrast. Reformats: Axial, sagittal, coronal. This patient underwent a CT examination using radiation exposure as low as reasonably achievable. CTDIvol and DLP radiation exposure values for each series were: Exposure: 1; Series: 2; Anatomy: L Spine; Phantom: 32 cm; CTDIvol: 25; DLP: 8[address] dose indicators for CT are the volume Computed Tomography (CT) Dose Index (CTDIvol) and the Dose Length Product (DLP), and are measured in units of mGy and mGy-cm, respectively. These indicators are not patient dose, but values generated from the CT scanner acquisition factors and may substantially underestimate or overestimate the absorbed dose based on patient size and other factors. FINDINGS: 5 lumbar-type vertebrae are considered. Please note that the L1 vertebra shows transitional appearance with hypoplastic ribs with an appearance similar to transverse processes. Levoconvex scoliosis of the lumbar spine is noted. Vertebral bodies are normal in height. The patient is status post right nephrectomy. The patient is status post decompressive laminectomy and posterior fusion of the L4-S1 vertebral bodies. There is no evidence of hardware failure or loosening. Retained wires are seen along the bilateral posterior elements of L4-L5. By levels: L1-L2: No evidence of disc herniation, central spinal stenosis, or foraminal compromise. L2-L3: Disc bulging with osseous spurring is present. Minimal narrowing of the spinal canal is noted. Mild bilateral foraminal narrowing. L3-L4: Disc bulging is present. Moderate foraminal stenosis. Facet joint hypertrophy. Evaluation of the spinal canal at this level is limited due to artifact from the hardware, but there is probably moderate stenosis. L4-L5: No significant spinal canal stenosis. Mild foraminal narrowing is noted bilaterally. No osseous spinal canal stenosis. Again, evaluation at this level is limited due to artifact from the hardware. L5-S1: Moderate foraminal narrowing on the left and minimal foraminal narrowing on the right. No significant osseous spinal canal stenosis. There is a lytic lesion in the left iliac bone. The lateral aspect of the lesion demonstrates negative density consistent with a fat- containing lesion. There is also evidence of prior procedure in this region. IMPRESSION: 1. Postsurgical changes from decompressive laminectomy centered at L5 and posterior fusion of L4-S1 without evidence of hardware failure. 2. Degenerative changes at L2-L3 and L3-L4 with probably moderate spinal canal stenosis at L3-L4. 3. Multilevel foraminal narrowings as described above. 4. Status post right-sided nephrectomy. I personally viewed and interpreted these images and I have reviewed and approved this report. Observed: 04/16/2018 Status: F Source: [facility] TYPE AND CROSS - 9:37 AM [facility] REPOSITORY ABO/RH(D): O POSITIVE ANTIBODY SCREEN: NEGATIVE UNIT NUMBER: [id number] BLOOD COMPONENT TYPE: Red Cells, Leukoreduced_[id number] STATUS OF UNIT: REL FROM ALLOC TRANSFUSION STATUS: OK TO TRANSFUSE CROSSMATCH RESULT: Electronically Compatible UNIT NUMBER: [id number] BLOOD COMPONENT TYPE: Red Cells, Leukoreduced_[id number] STATUS OF UNIT: REL FROM ALLOC TRANSFUSION STATUS: OK TO TRANSFUSE CROSSMATCH RESULT: Electronically Compatible Performed By: #### XMPO #### [facility] [address] [place] [address] URINALYSIS W REFLEX Collected: 04/16/2018 Status: F Source: [facility] 9:[address] [facility] REPOSITORY TYPE CODE TESTS RESULT OUT OF RANGE REFERENCE UNITS LAB ELECTRIC APPLIANCE INSTALLER Clear Appearance Urine Clear LAB SPGR 1.001-1.035 Specific Butler urine 1.020 LAB UGL Negative mg/dL Glucose Urine Negative LAB UKET Negative Ketones Abnormal Urine Trace LAB UBLD Negative Blood Urine Negative LAB UPH 5.0-7.0 pH Urine 6.5 LAB UPR Negative mg/dL Protein Abnormal Urine Trace LAB UNTR Negative Nitrites Urine Negative LAB ULEU Negative Leukocyte Esterase Negative LAB COLR Yellow Color Yellow LAB UURO <2.0 EU/dL Urobilinogen 0.2 urine LAB UWBC 0-5 /HPF WBC Urine 0-5 LAB URBC 0-2 /HPF RBC Urine 0-2 LAB BACT Absent Bacteria Abnormal Trace LAB EPIS /HPF Squamous Epithelial None LAB UCOM COMMENT URINE Mucus Result Comment: 2+ Performed By: #### URN1C #### [facility] [address] [place] [address] CBC WITH DIFF Collected: 04/16/2018 Status: F Source: [facility] 9:[address] [facility] REPOSITORY TYPE CODE TESTS RESULT OUT OF REFERENCE UNITS RANGE LAB WBC 4.23-9.07 K/uL WBC Count 8.29 LAB RBC 4.63-6.08 M/uL RBC Count 5.56 LAB HGB 13.7-17.5 g/dL Hemoglobin 17.3 LAB HCT 40.1-51.0 % Hematocrit 51.0 LAB MCV 79.0-92.2 fL Mean Cell 91.7 Volume LAB MCH 25.7-32.2 pg Mean Cell 31.1 Hgb LAB MCHC 32.3-36.5 g/dL Mean Cell 33.9 Hgb Conc LAB RDW 11.6-14.4 % RBC 13.4 Distribution LAB PLT 163-337 K/uL Platelet 199 Count LAB MPV 9.4-12.4 fL Mean 10.7 Platelet Volume LAB NRBC 0.0-0.2 /100 WBC NUCLEATED 0.0 RBC LAB DTYPE Electronic DIFFERENTIAL TYPE Differential LAB IGRE % IMMATURE 3.7 GRANS % LAB SEGS % NEUTROPHIL 76.3 SEGMENTED LAB LYM % LYMPHOCYTE 10.5 % LAB MON % MONOCYTE % 7.2 LAB EOS % EOSINOPHIL 1.6 % LAB BASO % BASOPHIL % 0.7 LAB IGABS <0.04 K/uL IMMATURE 0.31 High GRANS ABSOLUTE LAB SBANS 1.78-5.38 K/uL SEGS + 6.32 High Bands,Absolute LAB ALYM 1.32-3.57 K/uL Abs Lymph 0.87 Low LAB AMONO 0.30-0.82 K/uL Abs [place] 0.60 LAB AEOS <0.55 K/uL Abs Eos 0.13 LAB ABASO <0.09 K/uL Abs Baso 0.06 Performed By: #### CBCDFM, CAC, CHM7C, IPC, MGCC #### [facility] [address] [place] [address] #### LINC, A1CB #### [facility] [address] [place] [address] [place] [address] PT/PTT [facility] Collected: 04/16/2018 Status: F Source: [facility] 9:[address] [facility] REPOSITORY TYPE CODE TESTS RESULT OUT OF RANGE REFERENCE UNITS LAB PT 11.9-14.2 sec PT 13.4 LAB INR 0.9-1.1 INR 1.0 LAB PTT 24.0-34.3 sec PTT 28.1 Performed By: #### CBCDFM, CAC, CHM7C, IPC, MGCC #### [facility] [address] [place] [address] #### PTPMARISELAC, A1CB #### [facility] [address] [place] [address] CALCIUM - [address] Collected: 04/16/2018 Status: F Source: [facility] 9:[address] [facility] REPOSITORY TYPE CODE TESTS RESULT OUT OF REFERENCE UNITS RANGE LAB CA 8.6-10.5 mg/dL Calcium 9.7 Performed By: #### CBCDFM, CAC, CHM7C, IPC, MGCC #### [facility] [address] [place] [address] #### PTPTTC, A1CB #### [place] [address] [place] [address] [address] CHEM [address] - [address] Collected: 04/16/2018 Status: F Source: [facility] LAB 9:[address] [facility] REPOSITORY TYPE CODE TESTS RESULT OUT OF REFERENCE UNITS RANGE LAB NA 133-143 mmol/L Sodium 136 LAB K 3.5-5.0 mmol/L Potassium 4.7 LAB CL 98-108 mmol/L Chloride 100 LAB CO2 22-30 mmol/L Carbon Dioxide 30 LAB BUN 7-22 mg/dL BUN High 23 LAB CREA 0.70-1.30 mg/dL High Creatinine 1.82 LAB GLUC 70-99 mg/dL Glucose 80 LAB GAP 7-17 mmol/L Anion Gap 11 LAB GFR >60 mL/min/1.73 Low sqM Est GFR,non 37 [place] LAB GFRA >60 mL/min/1.73 Low sqM Est GFR, 45 LAB OSMC 278-305 mOsm/kg Osmolality 289 (Calc) Performed By: #### CBCDFM, CAC, CHM7C, IPC, MGCC #### [facility] [address] [place] [address] #### PTPTTC, A1CB #### [facility] [address] [place] [address] INORG PHOSPHATE - Collected: 04/16/2018 Status: F Source: [facility] [address] LAB 9:[address] [facility] REPOSITORY TYPE CODE TESTS RESULT OUT OF REFERENCE UNITS RANGE LAB IP 2.2-4.6 mg/dL Inorg Phosphate 2.2 Performed By: #### CBCDFM, CAC, CHM7C, IPC, MGCC #### [facility] [address] [place] [address] #### PTPTTC, A1CB #### [facility] [address] [address] MAGNESIUM - [address] Collected: 04/16/2018 Status: F Source: [facility] LAB 9:10 [facility] REPOSITORY TYPE CODE TESTS RESULT OUT OF REFERENCE UNITS RANGE LAB MG 1.6-2.6 mg/dL Magnesium 2.0 Performed By: #### CBCDFM, CAC, CHM7C, IPC, MGCC #### [place] [address] #### PTPTTC, A1CB #### [place] [address] HEMOGLOBIN A1C Collected: 04/16/2018 Status: F Source: [facility] 9:[address] [facility] REPOSITORY TYPE CODE TESTS RESULT OUT OF REFERENCE UNITS RANGE LAB A1C 4.7-5.6 % Hemoglobin A1C 5.0 LAB EAG mg/dL Estimated 97 Average Glucose Performed By: #### CBCDFM, CAC, CHM7C, IPC, MGCC #### [place] [address] #### PTPTTC, A1CB #### [place] [address] NICOTINE(COTININE),URINE Collected: Status: F Source: [facility] 04/16/2018 9:[address] [facility] REPOSITORY TYPE CODE TESTS RESULT OUT OF REFERENCE UNITS RANGE LAB NICOTU 500 ng/mL NONE DETECTED Nicotine(Co tinine),Uri ne Performed By: #### NICOTU #### [place] [address] Observed: 04/16/2018 Status: F Source: [facility] SCREEN: RESP STAPH 9:10 AM [facility] (HIGH RISK SURGERY) [facility] NARES: POSITIVE Negative This test was performed using a real time PCR assay. Results should be interpreted in conjunction with other clinical and laboratory findings. A positive result does not necessarily indicate the pr esence of viable organism. This test should not be used as a test of cure. For E-swab specimens, this test was developed and its performance characteristics determined by the Clinical Microbiology Laboratory at [facility]. It has not b een cleared or approved by the FDA.The laboratory is regulated under CLIA as qualified to perform high-complexity testing. This test is used for clinical purposes. It should not be regarded as investigational or for research. Performed By: #### SCRSB #### [address] [address] PT D/C SUMMARY (1) Observed: 04/02/2018 Status: F Source: [place] 3:01 PM [facility] REPOSITORY [facility] [address] [place] [address] Fax REHABILITATION SERVICES DISCHARGE SUMMARY MR#: [id number] Acct: [id number] Name: CHECO GRAY Rep #: [id number] : 1945 72 From: Carmen Dill MPT Referring Dr.: Margarita Otto MD Status: REG RCR Insurance: MEDICARE PART A B [facility] [id number] HP - PT D/C Summary It has been my pleasure to treat CHECO GRAY under orders from Margarita Otto, for the diagnosis of R leg pain for a total of 7 visit(s). Discharge Date: 04/02/18 Please see the following information for a summary of their discharge status. - Subjective Subjective: Pt saw the surgeon yesterday and and had a + SLR on B sides. He is going to do surgery....They are going to do the surgery next week to set up time and dates. Dr wants to keep up with PT. Pt was doing good until the Dr did that yesterday. Pt walked the whole week last week and did not have a problems. He has numbess in his R leg and getting atrophy. Pt wants to wait on PT until after surgery. - Pain back pain Pain Intensity (Out of 10): 2 R leg pain Pain Intensity (Out of 10): 4 - Overall Improvement % Improvement: 25 - Objective Objective/Function: Trunk AROM: flexion 50%, ext 20%, SB B 25%, Rot B 75%. LE MMT: R hip flex 4-/5 and L 4/5, R knee ext 4-/5 and L 4/5, R knee flex 4-/5 and L 4/5, R hip abd B 4/5 - Goals Goal 1:: I HEP Goal 2:: Decrease back and leg pain to 2/10 back pain and 0/10 leg pain Goal 3:: Increase trunk AROM by 25% each plane (Trunk AROM: flexion 50%, ext not even to neutral, SB B 25%B) - Plan Plan: dc pt to surgeon - D/C Information Discharge Comments: DC PT to Surgeon If there are questions or concerns regarding this patient's physical therapy, please feel free to call me at [phone]. Thank you for the referral of this patient. Sincerely, Carmen Dill <Electronically signed by Carmen Dill MPT> 04/02/18 [id number] CC: Margarita Otto MD; David Chandler MD Signed ORTHOPEDIC VISIT Observed: 04/01/2018 Status: F Source: [place] REPORT 9:34 PM [facility] REPOSITORY [facility] Orthopa[facility]ics AND [facility] Medicine [address] [place] [address] OFFICE VISIT Date of Service: 04/01/18 MR#: [id number] Acct: [id number] Name: CHECO GRAY Rep #: [id number] : 1945 Provider: Margarita Otto MD Age/Sex: 72/M Location: [facility] Status: Signed Intake Intake Visit Reasons: LOW BACK PAIN Is patient in pain?: Yes Allergies No Known Allergies Allergy (Verified 04/01/18 14:29) Medications Albuterol Inhaler [Ventolin Hfa] 1 - 2 puff INHALATION Q4H PRN PRN 10/20/13 [History Confirmed 02/26/18] Albuterol Aerosols [Ventolin Aerosols] 2.5 mg INHALATION Q6HWA.RT 10/05/16 [History Confirmed 02/26/18] Pramipexole Di-HCl [Mirapex] 1 mg PO QHS 10/05/16 [History Confirmed 02/26/18] Levofloxacin [Levaquin] 750 mg PO DAILY #4 tab 12/30/17 [Rx Confirmed 02/26/18] Rivaroxaban [Xarelto] 20 mg PO DAILY 12/30/17 [History Confirmed 02/26/18] [facility] Medical History Pulmonary embolism (Acute) Social History Smoking Status: Former smoker HPI LOW BACK PAIN: Details: CHECO GRAY returns today in follow up with continued 70% low back pain and 30% right anterolateral thigh, anterior and posterior calf paresthesias and diffuse foot paresthesias. He states he has been doing aqua therapy without relief. He states he had an episode of global right leg weakness. This has resolved, but he continues to have right quad weakness. He denies gait aids. He denies bowel or bladder. This started about 2.5 months ago after he tripped and fell. Patient complains of numbness into the right leg and his bilateral feet. He denies any recent injections. He completed his treatment for his kidney and bladder cancer. He did have a pulmonary embolism diagnosed in 12/2017 and was on xarelto. This was stopped last month by his PCP. He has had lumbar spine decompression and fusion elsewhere and had a bone stimulator placed and removed, but the leads are still in the lumbar region. ROS Const Reports system reviewed and no additional complaints, except as docu Eyes Reports system reviewed and no additional complaints, except as docu ENT Reports system reviewed and no additional complaints, except as docu Card Reports system reviewed and no additional complaints, except as docu Resp Reports system reviewed and no additional complaints, except as docu GI Reports system reviewed and no additional complaints, except as docu Reports system reviewed and no additional complaints, except as docu Musc Reports back pain, Reports numbness, Reports muscle weakness Skin/Breast Reports system reviewed and no additional complaints, except as docu Neuro Yes system reviewed and no additional complaints, except as docu, Yes numbness Psych Reports system reviewed and no additional complaints, except as docu Endo Reports system reviewed and no additional complaints, except as docu Ortho Exam Spine Neuro: Yes Levine's (negative bilaterally) and Straight Leg Raise (negative bilaterally) General: alert, oriented x3 Skin: Yes healed Gait: normal gait, other (able to heel and toe walk. able to squat and rise) Motor: strength 5/5 throughout Sensory Exam: other (decreased in the right anterior and posterior calf, dorsal foot) DTR's: Rt Patellar: 0, Lt Patellar: 1+, Rt Ankle: 1+, Lt Ankle: 1+ Coordination: tandem gait normal SPINE TESTING CERVICAL THORACIC LUMBAR SLR: Negative Musculoskeletal General: Yes normal gait Thoracic/Lumbar Spine: lumbar spinal tenderness, thoraco-lumbar ROM limited, pain with thoraco-lumbar ROM, paraspinal tenderness Strength 0=absent - 5=normal R Hip Flexor (L1-3): 5, L Hip Flexor (L1-3): 5, R Quadriceps (L2-4): 5, L Quadriceps (L2-4): 5, R Anterior Tibialis (L4-5): 5, L Anterior Tibialis (L4-5): 5, R Hamstrings (L5-S1): 5, L Hamstrings (L5-S1): 5, GS (S1): 5, L GS (S1): 5, R Peroneals (S1): 5, L Peroneals (S1): 5 Assessment AND Plan Problems 1. Lumbar radiculopathy M54.16 Plan Imaging: XR lumbar spine 02/25/2018 reveals diffuse spondylosis with prior L4-S1 laminectomy, instrumented fusion and right L3-4 coronal asymmetry, metallic lead in the L3-5 region posteriorly MRI lumbar spine 03/03/2018 reveals diffuse spondylosis with prior L4-S1 laminectomy and instrumentation, L3-L4 right lateral recess and foraminal stenosis I/R/P: 1. back pain 2. right leg pain, weakness, paresthesias 3. bilateral feet paresthesias, chronic 4. prior L4-S1 laminectomy, instrumented fusion, elsewhere 5. prior bone stimulator placement elsewhere with retained leads 6. history of kidney and lung cancer 7. PE 12/2017, completed treatment Mr. Gray presents with back pain and right lumbar radiculopathy in the setting of adjacent segment pathology with L3-L4 foraminal and lateral recess stenosis. He has failed nonoperative treatment to include medications and therapy. With his progressive subjective weakness, recommend a revision L3-L4 laminectomy with removal of hardware, extension of fusion L3-S1, possible interbody fusion, allograft and autograft. He will need a CT lumbar spine preoperatively and evaluation by vascular medicine at [facility], Dr. Mannie Minaya. He will need OPAC at [facility] and follow up in [place] for consent for surgery at [facility]. Plan of care discussed. All questions answered. He is in understanding. Coding Level of Care Code Off vis,est,level 4 Diagnoses Lumbar radiculopathy M54.16 04/01/18 2134 <Electronically signed by Margarita Otto MD> Date Margarita Otto MD Cosigner Signature: Date (if applicable) CC: CBC W/DIFF, AUTOMATED Collected: 03/31/2018 Status: F Source: [place] 12:13 PM [facility] REPOSITORY TYPE CODE TESTS RESULT OUT OF RANGE REFERENCE UNITS LAB L100.1000 4.4-11.0 K/mm3 Normal WBC 8.2 LAB L100.1200 4.6-6.2 M/mm3 Normal RBC 5.41 LAB L100.1300 13.0-16.5 g/dl High HGB 16.8 LAB L100.1400 40-54 % Normal HCT 49.2 LAB L100.1500 80-94 fL Normal MCV 90.9 LAB L100.1600 27.0-32.0 pg Normal MCH 31.1 LAB L100.1700 32-36 g/gl Normal MCHC 34.1 LAB L100.1810 11.6-14.6 % Normal RDW CV 13.7 LAB L100.1820 35.1-43.9 fl High RDW SD 45.3 LAB L100.1900 150-450 K/mm3 Normal PLT 176 LAB L100.2000 6.2-12.0 fl Normal MPV 11.0 LAB L100.2100 47-70 % High NEUT% 80.3 LAB L100.2200 19-41 % Low LY% 10.7 LAB L100.2300 0-10 % Normal MONO% 6.8 LAB L100.2400 0-5 % Normal EO% 1.3 LAB L100.2500 0-1 % Normal BASO% 0.2 LAB L100.2550 0.0-0.9 % Normal IM GRAN % 0.700 Result Comment: IG% - Immature Granulocytes (promyelocytes, myelocytes and metamyelocytes) > 1% indicates that a LEFT SHIFT is Present. LAB L100.2620 2.0-7.7 X10 3/uL Normal Absolute Neut 6.6 LAB L100.2720 0.83-4.51 X10 3/ul Normal Absolute Lymph 0.88 LAB L100.5500 ADEQ Normal PLT EST ADEQUATE LAB L100.5650 Normal PLT MORPH LARGE Performed By: #### L100.0100 #### [facility] [address] [place], [address] VITAMIN D,25 HYDROXY Collected: 03/31/2018 Status: F Source: [place] 12:13 PM [facility] REPOSITORY TYPE CODE TESTS RESULT OUT OF REFERENCE UNITS RANGE LAB L506.1000 29.95-100.01 ng/mL Low Vitamin D 25.2 25-OH Result Comment: Vitamin D 25(OH) Status Range Deficiency <20 ng/mL (50nmol/L) Insuffciency 20 - 30 ng/mL (50 - 75 nmol/L) Sufficiency 30 - 100 ng/mL (75 - 250 nmol/L) Toxicity >100 ng/mL (>250 nmol/L) Performed By: #### L506.1000, L509.3000 #### [facility] [address] [place], [address] TESTOSTERONE, SERUM TOTAL Collected: 03/31/2018 Status: F Source: [place] 12:13 PM [facility] REPOSITORY TYPE CODE TESTS RESULT OUT OF REFERENCE UNITS RANGE LAB L509.3000 ng/dL Testosterone Normal > 1500.00 Result Comment: NORMAL REFERENCE RANGES MALE AGE <50 123.06 - 813.86 ng/dL MALE AGE >50 89.98 - 780.10 ng/dL FEMALE PREMENOPAUSE AGE 21 - 60 9.01 - 47.94 ng/dL FEMALE POSTMENOPAUSE AGE 45 - 89 <7.00 - 45.62 ng/dL REFERENCE RANGE AND METHODOLOGY CHANGED 07/24/2017 Performed By: #### L506.1000, L509.3000 #### [facility] [address] [place], [address] COMPREHENSIVE METABOLIC Collected: 03/31/2018 Status: F Source: [facility] 12:13 PM [facility] REPOSITORY TYPE CODE TESTS RESULT OUT OF RANGE REFERENCE UNITS LAB L501.0100 74-106 mg/dL Normal GLU 98 Result Comment: Please note revised GLUCOSE reference range effective 2017. LAB L501.1000 7-18 mg/dL High BUN 26 LAB L501.1100 0.70-1.30 mg/dL High CREAT,SERUM 1.81 Result Comment: The validity of the calculated GFR AND GFRAA in patients over 70 years has not been determined. Clinical correlation is essential. LAB L501.1110 >60 mL/min Low EST GFR 39 Result Comment: Non- GFR Calc LAB L501.1115 >60 mL/min Low EST GFR - AA 48 Result Comment: GFR Calc LAB L501.1300 10-20 RATIO Normal BUN/CRE 14.4 LAB L501.1500 6.4-8.2 g/dL T Normal PROT 7.5 LAB L501.1800 3.2-5.0 g/dL Normal ALB 3.5 LAB L501.1950 2.2-4.2 g/dL Normal GLOB 4.0 LAB L501.2000 0.9-2.4 RATIO Normal A/G 0.9 LAB L501.2200 8.5-10.1 mg/dL CA Normal 8.7 LAB L501.4100 15-37 U/L Normal AST 17 LAB L501.4305 45-117 U/L Normal ALK P 66 LAB L501.4405 16-61 U/L Normal ALT 37 LAB L501.4600 0.20-1.00 mg/dL T Normal BILI 0.50 LAB L501.5300 136-145 mmol/L NA Normal 139 LAB L501.5600 3.5-5.1 mmol/L K Normal 3.8 LAB L501.5900 98-107 mmol/L CL Normal 105 LAB L501.6100 21.0-32.0 mmol/L Normal CO2 25.0 LAB L501.6200 5-15 Normal GAP 9 Performed By: #### L500.4050, L501.1400, L501.9520 #### [facility] [address] [place], [address] URIC ACID Collected: 03/31/2018 Status: F Source: [place] 12:13 PM [facility] REPOSITORY TYPE CODE TESTS RESULT OUT OF RANGE REFERENCE UNITS LAB L501.1400 3.5-7.2 mg/dL High URIC 8.5 Result Comment: The drugs N-Acetylcysteine and Metamizole may falsely depress this assay. Performed By: #### L500.4050, L501.1400, L501.9520 #### [facility] [address] [place], [place], [address] THYROID STIM HORMONE Collected: 03/31/2018 Status: F Source: [place] (TSH) 12:13 PM [facility] REPOSITORY TYPE CODE TESTS RESULT OUT OF RANGE REFERENCE UNITS LAB L501.9520 0.358-3.74 uIU/mL Normal TSH 1.93 Performed By: #### L500.4050, L501.1400, L501.9520 #### [facility] [address] [place], [address] HEPATITIS C ANTIBODIES Collected: 03/31/2018 Status: F Source: [place] 12:13 PM [facility] REPOSITORY TYPE CODE TESTS RESULT OUT OF RANGE REFERENCE UNITS LAB L3100.0650 0.0-0.9 s/co ratio Normal HEP C AB 0.1 Result Comment: Negative: < 0.8 Indeterminate: 0.8 - 0.9 Positive: > 0.9 The CDC recommends that a positive HCV antibody result be followed up with a HCV Nucleic Acid Amplification test (501969). Performed at: [facility] [id number] Director Home: Caden Flores PhD, Phone: [phone] Performed By: #### L3100.0625 #### [facility] (refer to report for specific site) refer to report for address and phone number ORTHOPEDIC VISIT Observed: 03/08/2018 Status: F Source: [place] REPORT 2:23 PM [facility] REPOSITORY [facility] [address] [place] [address] OFFICE VISIT Date of Service: 02/25/18 MR#: [id number] Acct: [id number] Name: CHECO GRAY Rep #: [id number] : 1945 Provider: Margarita Otto MD Age/Sex: 72/M [place] [facility] [facility] [place] Status: Signed Intake Intake Visit Reasons: LOW BACK PAIN Is patient in pain?: Yes Allergies No Known Allergies Allergy (Verified 02/26/18 08:44) Medications Albuterol Inhaler [Ventolin Hfa] 1 - 2 puff INHALATION Q4H PRN PRN 10/20/13 [History Confirmed 02/26/18] Albuterol Aerosols [Ventolin Aerosols] 2.5 mg INHALATION Q6HWA.RT 10/05/16 [History Confirmed 02/26/18] Pramipexole Di-HCl [Mirapex] 1 mg PO QHS 10/05/16 [History Confirmed 02/26/18] Levofloxacin [Levaquin] 750 mg PO DAILY #4 tab 12/30/17 [Rx Confirmed 02/26/18] Rivaroxaban [Xarelto] 20 mg PO DAILY 12/30/17 [History Confirmed 02/26/18] PFSH Medical History Pulmonary embolism (Acute) Social History Smoking Status: Former smoker HPI LOW BACK PAIN: Details: CHECO GRAY returns today in follow up for low back pain 70% and right lateral thigh, anterior low numbness and diffuse foot paresthesias 30% that started about 1.5 months ago after he tripped and fell. Of note, he was last seen 01/15/2017. He denies bowel or bladder issues, gait instability, or any treatment since this started about 2 months ago. He has difficulty playing golf. He did play 12 holes today. Since he was last seen, he has completed treatment for his kidney and bladder cancer. He did have a pulmonary embolism diagnosed in 12/2017 and is on xarelto managed by his PCP. He denies difficulty with hand dexterity. ROS Const Reports system reviewed and no additional complaints, except as docu Eyes Reports system reviewed and no additional complaints, except as docu ENT Reports system reviewed and no additional complaints, except as docu Card Reports system reviewed and no additional complaints, except as docu Resp Reports system reviewed and no additional complaints, except as docu GI Reports system reviewed and no additional complaints, except as docu Reports system reviewed and no additional complaints, except as docu Musc Reports back pain, Reports numbness, Reports radiating pain into limb Skin/Breast Reports system reviewed and no additional complaints, except as docu Neuro Yes system reviewed and no additional complaints, except as docu, Yes numbness Psych Reports system reviewed and no additional complaints, except as docu Endo Reports system reviewed and no additional complaints, except as docu Ortho Exam Spine Neuro: Yes Straight Leg Raise (negative bilaterally) and Levine's (negative bilaterally) General: alert, oriented x3 Skin: Yes dysraphism (none) Capillary Refill <2sec: Yes Gait: normal gait, other (heel and toe walk. normal tandem gait) Motor: strength 5/5 throughout Sensory Exam: no sensory deficits noted DTR's: Rt Patellar: 1+, Lt Patellar: 2+, Rt Ankle: 2+, Lt Ankle: 2+ Coordination: tandem gait normal, Romberg test normal SPINE TESTING CERVICAL THORACIC LUMBAR Musculoskeletal Thoracic/Lumbar Spine: straight leg raise negative bilaterally, thoraco-lumbar ROM limited, pain with thoraco-lumbar ROM, other (no significant tenderness to palpation) Strength 0=absent - 5=normal R Hip Flexor (L1-3): 5, L Hip Flexor (L1-3): 5, R Quadriceps (L2-4): 5, L Quadriceps (L2-4): 5, R Anterior Tibialis (L4-5): 5, L Anterior Tibialis (L4-5): 5, R Hamstrings (L5-S1): 5, L Hamstrings (L5-S1): 5, GS (S1): 5, L GS (S1): 5, R Peroneals (S1): 5, L Peroneals (S1): 5 Assessment AND Plan Problems 1. Right leg pain M79.604 Plan Imaging: XR lumbar spine 02/25/2017 reveals prior L4-S1 instrumented fusion, diffuse spondylosis, right coronal asymmetry I/R/P: 1. back pain 2. right leg pain x 2 months 3. history of lumbar decompression and fusion L4-S1, elsewhere 4. history of kidney and lung cancer 5. PE 12/2017 on xarelto Mr. Gray presents with chronic back pain and 2 month history of right leg pain. He has had similar symptoms 1 year ago that resolved. At this time, recommend MRI lumbar spine with and without contrast and initiation of physical therapy. Follow up after MRI or sooner if issues arise. Plan of care discussed. All questions answered. He is in understanding. Orders Orders: Coding Level of Care Code Off vis,est,level 4 Diagnoses Right leg pain M79.604 03/08/18 1423 <Electronically signed by Margarita Otto MD> Date Margarita Otto MD Cosigner Signature: Date (if applicable) CC: CREATININE FINGERSTICK Collected: 03/03/2018 Status: F Source: [place] 4:13 PM [facility] REPOSITORY TYPE CODE TESTS RESULT OUT OF RANGE REFERENCE UNITS LAB L9100.0210 0.70-1.30 mg/dL Normal CREATININE WB 1.3 LAB L9100.0220 >60 mL/min Low EGFR WB 56.0000 Performed By: #### L9100.0200 #### [facility] Point of Care [address] [facility] [place] [address] SPINE LUMBAR W/WO Observed: 03/03/2018 Status: F Source: [place] CONTRAST 3:58 PM [facility] REPOSITORY [facility] Imaging Services [address] [place] [address] Spine Lumbar W/WO Contrast MR#: [id number] Acct: [id number] Name: CHECO GRAY Carol Ann Rep #: [id number] : 1945 M 72 From: Juan Alberto Stapleton MD PCP: Ramesh BRUMFIELD,David Chi Status: REG CLI Study: Spine Lumbar W/WO Contrast Date of Exam: 03/03/18 Exam# [id number] Ordering Dr: Margarita Otto MD STUDY: MRI LUMBAR SPINE WITH AND WITHOUT CONTRAST REASON FOR EXAM: Male, 72 years old. Low back pain and radiculopathy on the left TECHNIQUE: Standardized fat and water weighted pulse sequences were obtained in the sagittal and axial planes. 10 ml of Gadavist contrast material was administered for the contrast portion of the examination. COMPARISON: November 16, 2016 FINDINGS: T12-L1: Normal endplates. Normal disc height, desiccation and normal. Normal bilateral facet joints. Normal central canal and bilateral lateral recesses. Normal bilateral intervertebral neural foramina. Normal lumbar lordosis. There is no substantial scoliosis. Normal conus medullaris that terminates at T12-L1 L1-2: Normal endplates. Normal disc height, desiccation and normal morphology. Normal bilateral facet joints. Normal central canal and bilateral lateral recesses. Normal bilateral intervertebral neural foramina. L2-3: Normal endplates. Normal disc height, desiccation and mild annular bulge with small bilateral posterolateral/foraminal disc protrusions slightly larger on the right. Normal bilateral facet joints. Normal central canal. Mild left lateral recess and neuroforaminal encroachment with slightly more pronounced narrowing on the right. L3-4: Normal endplates. Normal disc height, desiccation and mild annular bulge in association with a moderate size right paracentral/posterolateral disc extrusion with inferior migration of disc fragment.. Bilateral facet arthropathy slightly greater on the right. Normal central canal. Moderate to severe right lateral recess and subarticular stenosis. Moderate to severe right neural foraminal stenosis.. L4-5: Postop changes status post bilateral laminectomy and posterior fusion. Minimal endplate spurring.. Bilateral facet arthropathy.. Normal central canal and bilateral lateral recesses. Normal bilateral intervertebral neural foramina. L5-S1: Postsurgical changes status post bilateral laminectomy and posterior fusion. Narrowed disc space with tiny central calcific disc or osteophyte protrusion. Bilateral facet arthropathy.. Normal central canal and bilateral lateral recesses. Normal bilateral intervertebral neural foramina. Normal visualized sacral ala. No abnormal enhancement following contrast injection Normal visualized paraspinous soft tissue structures. MRI/Spine Lumbar W/WO Contrast IMPRESSION: Postop changes status post bilateral laminectomy and posterior fusion at L4-5 and L5-S1. Spinal stenosis at L3-4 on the right secondary to disc disease and bony hypertrophy. Other findings as above Electronically Signed: Juan Alberto Stapleton MD at 23:04 EDT , Service support , CC: Margarita Otto MD; David Chandler MD Manager Ethics: Signed INITAL EVALUATION (1) Observed: 02/28/2018 Status: F Source: [place] - PT 12:30 PM [facility] REPOSITORY [facility] [address] [place] [address] Fax REHABILITATION SERVICES INITIAL EVALUATION MR#: [id number] Acct: [id number] Name: CHECO GRAY Rep #: [id number] : 1945 72 From: Carmen Dill MPT Referring Dr.: Margarita Otto MD Status: REG RCR Insurance: MEDICARE PART A B [facility] [id number] Patient's Visit Information CHECO GRAY is a 72 year old M referred to Physical Therapy by Margarita Otto with a diagnosis of R leg pain. Date of Evaluation: 02/25/18 Physical Therapist: Carmen Dill - Visit Plan Frequency: 2x /Week Duration: 2 Months Plan: 2X/week for 8 weeks for AT, deep water traction/ core stability, hip and LE strength (especially hip ext), trunk ROM, HS stretches with HEP. - Subjective Subjective: Pt reports that he has LBP and has had it 20 years and this episode for 4-6 weeks. Current symptoms: pain and stiff and pain down the front of R leg with front of leg and foot numbness. Few weeks ago her could not feel anything down his leg. He has 4 metal in L2-3-4.....saw Dr Otto a year ago and had the same problem and it worked good. Just finished [place] a year ago...still CA free. He is excited about AT. He is gonna have an MRI done soon and they will discuss POC. Increase pain with golfing and anything that requires lifting. Stairs: has to hold the railing and hard to lift leg up to get on the step. - Pain back pain Pain Intensity (Out of 10): 4 R leg pain Pain Intensity (Out of 10): 0 Comment: burning pain in foot 2-3/10 - Objective Gait: Walks with decreased stance time on the R. LE Strength: B hip flex 4+/5, B knee ext and flex 4+/5, B hip abd 4+/5, B hip ext 3-/5. + SLR B for LBP. Tight HS B, Hip flexors. Able to heel and toe walk without difficulty. Trunk AROM: flexion 50%, ext not even to neutral, SB B 25%B - Goals Goal 1:: I HEP Goal Time Frame: 4-6 Weeks Goal 2:: Decrease back and leg pain to 2/10 back pain and 0/10 leg pain Goal Time Frame: 4-6 Weeks Goal 3:: Increase trunk AROM by 25% each plane (Trunk AROM: flexion 50%, ext not even to neutral, SB B 25%B) Goal Time Frame: 4-6 Weeks - Rehabilitation Potential Rehabilitation Potential: Good - Anticipated Interventions Patient/Client Instruction: Educate patient on: Condition, Plan of Care For the Purpose of:: To decrease pain, To increase ROM, To improve nutrient delivery to tissue, To improve muscle performance and motor function, To improve ability to perform ADL's, To increase tolerance to activity/condition/position, To improve performance and independence with ADL's, To improve gait and locomotor functions, To improve health of tissue, To increase flexibility/ROM Therapeutic Exercise to Include: Strength training, Body mechanics, Postural training, Flexibilty training, In an aquatic setting, Active ROM, Dynamic Lumbar Stabilization For the Purpose of:: To decrease pain, To increase ROM, To improve nutrient delivery to tissue, To improve muscle performance and motor function, To increase tolerance to activity/condition/position, To improve gait and locomotor functions, To improve health of tissue, To decrease soft tissue restriction, To increase flexibility/ROM Thank you for the opportunity to evaluate your patient. For Medicare and Medicare HMO plans, please review the plan of care and approve it. It will need to be FAXED BACK to us at [phone] for Medicare purposes. Please let me know if there are questions or concerns regarding this plan of care. Physician Signature: Date: <Electronically signed by Carmen Dill MPT> 02/28/18 1230 CC: Margarita Otto MD; David Chandler MD Signed For Medicare only, by signing this I certify the plan of care. Physicians Signature Date L/S SPINE MIN 4 Observed: 02/26/2018 Status: F Source: [place] VIEWS 10:53 AM [facility] REPOSITORY [facility] Imaging Services [address] [place] [address] L/S Spine Min 4 Views MR#: [id number] Acct: [id number] Name: CHECO GRAY Rep #: [id number] : 1945 M 72 From: Jaxon James MD PCP: David Chandler MD, Chi Status: REG CLI Study: L/S Spine Min 4 Views Date of Exam: 02/25/18 Exam# [id number] Ordering Dr: Margarita Otto MD STUDY: X-RAY - LUMBAR SPINE REASON FOR EXAM: Male, 72 years old. Lower back pain TECHNIQUE: 4 view(s) of the lumbar spine were obtained. COMPARISON: 05/20/2017, 12/11/2016 lumbar spine x-rays. FINDINGS: Scoliosis. Low lumbar posterior johnny and pedicle screw fixation and multilevel laminectomy between L4 and S1. The surgical construct appears intact. Moderate disc degenerative features at L2-L3, L3-L4 with disc space narrowing, endplate degenerative changes, small anterior osteophytes, and mild facet hypertrophy. In extension, there is no significant translation of vertebral bodies. In flexion, there is no significant translation of vertebral bodies. There is slight anterior compression of the disc intervals at L2- L3, L3-L4. RAD/L/S Spine Min 4 Views IMPRESSION: Minimal asymmetric anterior compression of the intervertebral discs at L2-L3 and L3-L4 in flexion. No significant change between neutral position and extension. Degenerative disc disease at each of these levels. This reflects abnormal motion at the levels immediately above the spinal fixation L4 and S1. The surgical construct is intact. Electronically Signed: Jaxon James, at 10:48 EDT Tel , Service support , CC: Margarita Otto MD; David Chandler MD Manager Ethics: Signed 12 LEAD ELECTROCARDIOGRAM Observed: 01/20/2018 Status: F Source: [place] 8:35 AM [facility] Cardiovascular Services [address] [place] [address] 12 Lead EKG 12/30/17 0947 MR#: [id number] Acct: [id number] Name: CHECO GRAY Rep #: [id number] : 1945 71 From: Damon Trevino MD Attending Dr: Status: DEP ER Ordering Dr: Ellie Norman MD Date: 12/30/17 Location: ED Sex: M C Admitted: Test Reason : COUGH Blood Pressure : / mmHG Vent. Rate : 066 BPM Atrial Rate : 066 BPM P-R Int : 164 ms QRS Dur : 082 ms QT Int : 410 ms P-R-T Axes : 074 001 046 degrees QTc Int : 429 ms Normal sinus rhythm Normal ECG Confirmed by DAMON TREVINO ([id number]), international editorial producer ANDRE MURRAY ([id number]) on 01/13/2018 5:18:50 PM Referred By: LORELEI Confirmed By:DAMON TREVINO 01/13/18 1718 Date Damon Trevino MD CC: Ellie Norman MD; David Chandler MD Signed EMERGENCY DEPARTMENT Observed: 12/30/2017 Status: F Source: [place] SUMMARY 6:52 PM [facility] [facility] REPOSITORY [facility] Medical Records Department [address] [place] [address] Emergency Department Summary 12/30/17 0942 MR#: [id number] Acct: [id number] Name: CHECO GRAY Rep #: [id number] : 1945 71 From: Ellie Norman MD PCP: David Chandler MD, Chi Status: DEP ER - ER Visit Summary Date of Service: 12/30/17 Chief Complaint: Cough, congestion, headache History of Present Illness: The patient is a 71 M with productive cough over the past 4 days. He reports that the fevers and sweats. He has pain in his back with the cough. He does have a history of COPD but reports very minimal wheezing. Past history significant for renal cell and bladder cancer resulting in right-sided nephrectomy. He also had lung cancer with a lobectomy. He does not use home oxygen. Physical Examination: Vital signs are unremarkable. Patient is lying in bed. He has frequent harsh sounding cough. Heart is regular rate and rhythm. Lung sounds are grossly clear. Abdomen is soft nontender. Lower external examination reveals no significant calf tenderness or edema. Test Results: EKG is sinus at 66 with no sign of acute ischemia. CBC was normal white count with no left shift. Chemistry studies reveal creatinine 1.78 which is consistent with his baseline. Lactate is normal. Blood cultures were sent. Two-view chest x-ray reveals no evidence of acute disease. Fibrotic changes are noted. Emergency Department Course and Treatment: Patient was given IV fluids along with p.o. Hycodan. On repeat evaluation he does feel improved. Patient states he does have some Hycodan at home that he can use. Because of his COPD history he will be covered with a course of Levaquin, first dose given here. He was encouraged to return for worsening symptoms or any other concerns. Treatment Plan: [] Disposition: Discharge Impression: Bronchitis with history of COPD This note was generated with [employer] dictation software. It may contain incorrect words, spelling, and punctuation that were not noted in review of the chart prior to signing ED Disposition - Plan for ED Patient: Chief Complaint: Cough Referrals: David Chandler Chi, MD [Primary Care Provider] - What to do if you have Problems For any increased pain, shortness of breath, bleeding, nausea or vomiting, chest pain, or any unexpected problems, contact your Primary Care Provider. Call [facility] ([phone]) or report to the closest Emergency Room. Call 911 if necessary. 12/30/17 185 <Electronically signed by Ellie Norman MD> Date Ellie Norman MD Cosigner Signature (If Indicated): Date CC: David Chandler MD DISCHARGE INSTRUCTION Observed: 12/30/2017 Status: F Source: [place] 10:45 AM [facility] REPOSITORY [facility] Medical Records Department [address] [place] [address] Discharge Instruction 12/30/17 1044 MR#: [id number] Acct: [id number] Name: MARINACHECO N Rep #: [id number] : 1945 71 From: Ellie Norman MD PCP: David Chandler MD, Chi Status: REG ER ED Disposition - Plan for ED Patient: Disposition: Home or Assisted Living Chief Complaint: Cough Instructions: Acute Bronchitis Prescriptions: Levofloxacin [Levaquin] 750 mg PO DAILY #4 tablet Referrals: David Chandler Chi, MD [Primary Care Provider] - 1 Week What to do if you have Problems For any increased pain, shortness of breath, bleeding, nausea or vomiting, chest pain, or any unexpected problems, contact your Primary Care Provider. Call [facility] ([phone]) or report to the closest Emergency Room. Call 911 if necessary. 12/30/17 1045 <Electronically signed by Ellie Norman MD> Date Ellie Norman MD Cosigner Signature (If Indicated): Date CC: David Chandler MD CHEST PA AND LATERAL Observed: 12/30/2017 Status: F Source: [place] 9:41 AM [facility] REPOSITORY [facility] Imaging Services [address] [place] [address] Chest PA and Lateral MR#: [id number] Acct: [id number] Name: CHECO GRAY Rep #: [id number] : 1945 M 71 From: Samantha Murray MD PCP: David Chandler MD, Chi Status: REG ER Study: Chest PA and Lateral Date of Exam: 12/30/17 Exam# [id number] Ordering Dr: Ellie Norman MD STUDY: X-RAY CHEST REASON FOR EXAM: Male, 71 years old. Cough. Patient has history of lung cancer. TECHNIQUE: PA and lateral views of the chest. COMPARISON: October 12, 2016. FINDINGS: Cardiac monitoring leads are present. The lungs are hyperexpanded. There is interstitial thickening present in both lungs. There is blunting of the left lateral costophrenic angle possibly related to pleural thickening. No pleural effusions are visualized. There is pleural fibrotic thickening of the right lung apex. Normal size heart. Normal mediastinum and ghulam. Normal visualized pulmonary arteries. There is atherosclerotic calcification of the aortic arch with tortuosity. There is demineralization of the osseous structures. Normal visualized ribs, clavicles, and shoulders. There is no demonstrated abnormality of the visualized soft tissue structures of the upper abdomen. RAD/Chest PA and Lateral IMPRESSION: No radiographic evidence of acute cardiopulmonary disease. Electronically Signed: Samantha Murray MD at 10:29 EDT , Service support , CC: Ellie Norman MD; David Chandler MD Manager Ethics: Signed Observed: 12/30/2017 Status: F Source: [place] CULTURE, BLOOD (WB) 9:30 AM [facility] REPOSITORY BC No growth in 5 days. Performed By: #### M200.1000 #### [facility] [place], [address] CBC W/DIFF, AUTOMATED Collected: 12/30/2017 Status: F Source: [place] 9:25 AM [facility] REPOSITORY TYPE CODE TESTS RESULT OUT OF RANGE REFERENCE UNITS LAB L100.1000 4.4-11.0 K/mm3 Normal WBC 5.8 LAB L100.1200 4.6-6.2 M/mm3 Normal RBC 5.51 LAB L100.1300 13.0-16.5 g/dl High HGB 17.0 LAB L100.1400 40-54 % Normal HCT 49.5 LAB L100.1500 80-94 fL Normal MCV 89.8 LAB L100.1600 27.0-32.0 pg Normal MCH 30.9 LAB L100.1700 32-36 g/gl Normal MCHC 34.3 LAB L100.1810 11.6-14.6 % Normal RDW CV 13.0 LAB L100.1820 35.1-43.9 fl Normal RDW SD 42.5 LAB L100.1900 150-450 K/mm3 Normal PLT 152 LAB L100.2000 6.2-12.0 fl Normal MPV 10.9 LAB L100.2100 47-70 % Normal NEUT% 69.0 LAB L100.2200 19-41 % Low LY% 11.5 LAB L100.2300 0-10 % High MONO% 13.3 LAB L100.2400 0-5 % Normal EO% 4.1 LAB L100.2500 0-1 % Normal BASO% 0.7 LAB L100.2550 0.0-0.9 % High IM GRAN % 1.400 Result Comment: IG% - Immature Granulocytes (promyelocytes, myelocytes and metamyelocytes) > 1% indicates that a LEFT SHIFT is Present. LAB L100.2620 2.0-7.7 X10 3/uL Normal Absolute Neut 4.0 LAB L100.2720 0.83-4.51 X10 3/ul Low Absolute Lymph 0.67 Performed By: #### L100.0100 #### [facility] [address] [facility] [address] [place], [place], [address] BASIC METABOLIC Collected: 12/30/2017 Status: F Source: [place] PROFILE (BMP) 9:25 AM [facility] REPOSITORY TYPE CODE TESTS RESULT OUT OF RANGE REFERENCE UNITS LAB L501.0100 74-106 mg/dL Normal GLU 77 Result Comment: Please note revised GLUCOSE reference range effective 2017. LAB L501.1000 7-18 mg/dL High BUN 25 LAB L501.1100 0.70-1.30 mg/dL High CREAT,SERUM 1.78 Result Comment: The validity of the calculated GFR AND GFRAA in patients over 70 years has not been determined. Clinical correlation is essential. LAB L501.1110 >60 mL/min Low EST GFR 40 Result Comment: Non- GFR Calc LAB L501.1115 >60 mL/min Low EST GFR - AA 49 Result Comment: GFR Calc LAB L501.1255 ml/min Normal Estimated CRCL 45.49 LAB L501.1300 10-20 RATIO Normal BUN/CRE 14.0 LAB L501.2200 8.5-10 mg/dL Normal .1 CA 8.5 LAB L501.5300 136-14 mmol/L Normal 5 NA 138 LAB L501.5600 3.5-5. mmol/L Normal 1 K 4.2 LAB L501.5900 98-107 mmol/L Normal CL 105 LAB L501.6100 21.0-3 mmol/L Normal 2.0 CO2 26.0 LAB L501.6200 5-15 Normal GAP 7 Performed By: #### L500.2500 #### [facility] [address] [place], [address] LACTIC ACID Collected: 12/30/2017 Status: F Source: [place] 9:25 AM [facility] REPOSITORY Order Comment: Yes/No query for Sepsis Lactate Rule Y TYPE CODE TESTS RESULT OUT OF RANGE REFERENCE UNITS LAB L503.6005 0.4-2.0 mmol/L Normal LACTIC ACID 1.4 Performed By: #### L503.6005 #### [facility] [address] [facility] [address] [place], [place], [address] Observed: 12/30/2017 Status: F Source: [place] CULTURE, BLOOD (WB) 9:25 AM [facility] REPOSITORY BC No growth in 5 days. Performed By: #### M200.1000 #### [facility] [address] [place], [place], [address] CBC-COMPLETE BLOOD CNT Collected: 12/11/2017 Status: F Source: [place] NO DIFF 11:58 AM [facility] REPOSITORY TYPE CODE TESTS RESULT OUT OF RANGE REFERENCE UNITS LAB L100.1000 4.4-11.0 K/mm3 Normal WBC 10.2 LAB L100.1200 4.6-6.2 M/mm3 Normal RBC 5.69 LAB L100.1300 13.0-16.5 g/dl High HGB 17.7 LAB L100.1400 40-54 % Normal HCT 51.6 LAB L100.1500 80-94 fL Normal MCV 90.7 LAB L100.1600 27.0-32.0 pg Normal MCH 31.1 LAB L100.1700 32-36 g/gl Normal MCHC 34.3 LAB L100.1810 11.6-14.6 % Normal RDW CV 13.2 LAB L100.1820 35.1-43.9 fl Normal RDW SD 43.7 LAB L100.1900 150-450 K/mm3 Normal PLT 194 LAB L100.2000 6.2-12.0 fl Normal MPV 10.8 Performed By: #### L100.0500 #### [facility] [address] [facility] [place], [address] PROTEIN+CREATININE Collected: Status: F Source: [place] RATIO,URINE 12/04/2017 10:17 AM [facility] REPOSITORY TYPE CODE TESTS RESULT OUT OF RANGE REFERENCE UNITS LAB L501.1200 NO RANGE EST. mg/dL Normal UR CREAT 162.00 LAB L501.1930 <11.9 mg/dL High 20.8 PROTEIN,UR.R AN. LAB L501.1940 0-200 mg/g CRE Normal PROT:CRE 128 RATIO Performed By: #### L501.0900 #### [facility] [address] [place], [address] RENAL PROFILE Collected: 12/04/2017 Status: F Source: [place] 10:17 AM [facility] REPOSITORY TYPE CODE TESTS RESULT OUT OF RANGE REFERENCE UNITS LAB L501.0100 74-106 mg/dL High GLU 159 Result Comment: Fasting Glucose result greater than or equal to 126 mg/dL suggests DIABETES MELLITUS per A.D.A. criteria. Please note revised GLUCOSE reference range effective 2017. LAB L501.1000 7-18 mg/dL Normal BUN 18 LAB L501.1100 0.70-1.30 mg/dL High CREAT,SERUM 1.86 Result Comment: The validity of the calculated GFR AND GFRAA in patients over 70 years has not been determined. Clinical correlation is essential. LAB L501.1110 >60 mL/min Low EST GFR 38 Result Comment: Non- GFR Calc LAB L501.1115 >60 mL/min Low EST GFR - AA 46 Result Comment: GFR Calc LAB L501.1300 10-20 RATIO Low BUN/CRE 9.7 LAB L501.1800 3.2-5.0 g/dL Normal ALB 3.7 LAB L501.2200 8.5-10.1 mg/dL Normal CA 8.5 LAB L501.2300 2.5-4.9 mg/dL Low PHOS 2.3 LAB L501.5300 136-145 mmol/L Normal NA 138 LAB L501.5600 3.5-5.1 mmol/L Normal K 4.0 LAB L501.5900 98-107 mmol/L Normal CL 104 LAB L501.6100 21.0-32.0 mmol/L Normal CO2 24.0 Performed By: #### L500.3600 #### [facility] [address] [place], [address] PROGRESS Observed: 10/17/2017 Status: COMPLETED Source: [place] 10:22 AM [facility] REPOSITORY HNO ID: [id number] Author: Elena Walton Ct Service: (none) Author Type: (none) Type: Progress Notes Filed: 10/17/2017 10:23 AM Note Text: Radiology Service Progress Note PATIENT NAME: Checo Gray DATE OF SERVICE: October 17, 2017 TIME: 10:22 AM PATIENT IDENTITY VERIFICATION COMPLETED USING TWO (2) METHODS: Patient confirmed name verbally and Date of . PATIENT GENDER DATA: Male PATIENT RELEVANT IMPLANT DATA REVIEWED: Not Applicable CONTRAST INDUCED NEPHROPATHY RISK FACTORS: Patient age > 60 years CREATININE: Creatinine Date Value Ref Range Status 09/24/2016 1.75 (H) 0.73 - 1.22 mg/dL Final Creatinine, Whole Blood (iSTAT) Date Value Ref Range Status 10/14/2017 1.60 (H) 0.70 - 1.40 mg/dL Final 04/12/2017 1.70 (H) 0.70 - 1.40 mg/dL Final 01/15/2017 1.90 (H) 0.70 - 1.40 mg/dL Final eGFR-All Other Races Date Value Ref Range Status 10/14/2017 43 . Final Comment: eGFR (Estimated GFR) Units of measure: mL/min/1.73 meters squared eGFR is derived from the reexpressed MDRD Study equation using the following parameters: serum creatinine, age, gender and race. The creatinine assay has been calibrated to be traceable to IDMS. An eGFR <60 mL/min/1.73m2 for >3 months is consistent with chronic kidney disease. Refer to KDOQI guidelines for clinical interpretation. In patients with unstable renal function, e.g. those with acute kidney injury, the eGFR may not accurately reflect actual GFR. eGFR- Date Value Ref Range Status 10/14/2017 52 Final P.O.C.T. RESULTS: POC done: Yes, See Lab Tab October 17, 2017 RADIOLOGIST NOTIFIED?: Yes IV Hydration: Normal Saline solution 500 ml over 1 hours. ALLERGIES: Reviewed and unchanged CONTRAST ALLERGY: NO. PERIPHERAL IV ACCESS: Ambulatory: IV type: Existing peripheral IV utilized, Site assessment: Clean,Dry and Intact, Site disposition Discontinued RADIOLOGY DEPARTMENT: CT; Exam(s) Completed: Abdomen/Pelvis SIGNED BY: Elena Walton Ct October 17, 2017 10:[address] ABD/PEL W IVCON Observed: 10/17/2017 Status: F Source: [place] 9:53 AM [facility] REPOSITORY * * *Final Report* * * DATE OF EXAM: Oct 17 2017 9:53AM [facility] 0530 - CT ABD/PEL W IVCON / PROCEDURE REASON: Malignant neoplasm of upper lobe,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 or lung * * * * Physician Interpretation * * * * EXAMINATION: CT ABDOMEN AND PELVIS WITH IV CONTRAST CLINICAL HISTORY: Lung cancer, bladder cancer, RIGHT nephrectomy for cancer, and melanoma. Staging. TECHNIQUE: CT of the abdomen and pelvis was performed using standard technique, scanning from just above the dome of the diaphragm to the symphysis pubis. MQ: CTAP_3 Contrast: IV: 135 ml of Omnipaque 300 Oral: 50 ml of 50ML Omnipaque [address] Radiation dose: Integrated Dose-length product (DLP) for this visit = 664 mGy*cm. CT Dose Reduction Employed: Automated exposure control (AEC) COMPARISON: None. RESULT: Liver: No mass. Biliary: No bile duct dilation. Gallbladder is unremarkable. Spleen: No mass. No splenomegaly. Pancreas: 7 mm fat attenuation lesion in the pancreatic head (3:48) and 1.2 cm fat attenuation lesion in the pancreatic neck (3:38) consistent with benign lipomas. No other mass or duct dilation. Adrenals: No mass. Kidneys: No mass in the RIGHT nephrectomy bed. 2.7 cm LEFT lower pole slightly hyperdense lesion, likely a hyperdense cyst as it is homogeneous and with no perceptible wall. No other mass, calculus, or hydronephrosis. GI tract: No dilation or wall thickening. There is descending and sigmoid colon diverticulosis without CT evidence of acute diverticulitis. Lymph nodes: No abdominal or pelvic lymphadenopathy. Mesentery/Peritoneum: No ascites or mass. Retroperitoneum: No mass. Vasculature: The celiac axis and SMA are patent. The portal vein and branches, splenic vein, SMV, and hepatic veins are patent. There is calcification of the aorta and iliac arteries, without aneurysm. Pelvis: No mass, ascites or fluid collection. Normal bladder wall thickness. No intraluminal mass seen within the bladder. Bones/Soft Tissues: Orthopedic hardware in the spine. Mild degenerative changes in the spine. No neoplastic bone disease. 1 cm lucency in the LEFT posterior iliac bone (3:97) is likely benign but recommend attention on follow-up. Lower thorax: A chest CT was performed and will be reported separately. IMPRESSION: NO METASTATIC DISEASE OR LOCAL RECURRENCE IN THE ABDOMEN OR PELVIS PROBABLY BENIGN SOLITARY LUCENT LESION IN THE LEFT POSTERIOR ILIAC BONE 2 SMALL LIPOMATOUS PANCREATIC LESIONS 2.7 CM LEFT LOWER RENAL POLE PROBABLE HYPERDENSE CYST Manager Ethics: ROBERTO Transcribe Date/Time: Oct 17 2017 1:41P Dictated by : ROSA ISELA SWEET MD This examination was interpreted and the report reviewed and electronically signed by: ROSA ISELA SWEET MD on Oct 17 2017 1:48PM EST [id number] Observed: 10/16/2017 Status: F Source: [place] RESPIRATORY PANEL 1:55 PM [facility] MOLECULAR REPOSITORY Results called on 10/17/17-1026 by DCANNON to /NURSE LINE [phone]. RP PANEL Normal Reference Range = Not Detected Copy of report sent to Infection Control Printer [id number] 10/17/17 1029 DCANNON. ADENOVIRUS Not Detected HUMAN METAPHNEUMO Not Detected INFLUENZA A Not Detected INFLUENZA A (SUBTYPE H1) Not Detected INFLUENZA A (SUBTYPE H3) Not Detected INFLUENZA B Not Detected PARAINFLUENZA 1 Not Detected PARAINFLUENZA 2 Not Detected PARAINFLUENZA 3 Not Detected PARAINFLUENZA 4 Not Detected RHINOVIRUS Positive for RHINOVIRUS by NAAT technology RSV A Not Detected RSV B Not Detected NAAT METHOD Testing was performed using nucleic acid amplification ORGANISM 1: RHINOVIRUS Performed By: #### M100.638 #### [facility] [address] [place] [address], [address] PROGRESS Observed: 10/16/2017 Status: COMPLETED Source: [place] 9:36 AM [facility] REPOSITORY HNO ID: [id number] Author: Xuan Lora Service: (none) Author Type: Nurse Practitioner Type: Progress Notes Filed: 10/17/2017 12:31 PM Note Text: Chief Complaint Patient presents with: Established Patient HPI: Checo Gray is a 71 year old male who presents here today for follow up lung cancer. Per Dr. Noble's previous note: H/o RCC?(right nephrectomy at [facility] 2003; follows up with Dr. Hernandez), superficial bladder cancer, LUIS CARLOS?(underwent uvulopalatopharyngoplasty by Dr. Aguilera),?COPD?and gout. ?? He had been under the care of Dr. Reich for several year history of a right upper lobe nodule. This had been present since at least 2011. CT scan at that time showed it measured approximately 3.3 x 2.4 x 3.2 cm. In 2014 it was noted to increase to 4.3 x 2.7 x 3.0 cm. PET scan was performed and it demonstrated an SUV of 2 for that lesion. ?? Patient underwent a CT chest on 05/07/2016. The inhomogeneous soft tissue density in the posterior medial segment of the right upper lobe was not noted to change in size and measured 3.6 x 3.8 x 4.8 cm. ?? Patient was referred to a thoracic surgeon at [facility]. He ultimately underwent a?right thoracotomy with right upper lobe wedge resection and immediate right upper lobectomy along with mediastinal lymphadenectomy on 08/14/2016. ?? 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 The tumor was noted to invade into and focally through the visceral pleura. The staple resection margin was positive. In the lobectomy specimen there was an invasive moderately differentiated adenocarcinoma and bronchoalveolar adenocarcinoma measuring a 4.6 cm region adjacent to the staple line. Ten intrapulmonary lymph nodes were noted to be negative. Lymph nodes from level CDLVI and 8 were all negative for tumor. Final margins were all negative. The bronchial margin was 3 mm the vascular margin was 3 mm and the parenchymal margin was 3 mm. Lymphovascular invasion was not identified. The tumor was unifocal although removed in 2 sections. Final pathologic staging was pT3 N0. ?? Previous therapy: 1) Adjuvant carbo/paclitaxel. Last treatment?01/16/17. ? Pt. was started on xarelto after CT chest on Saturday. See below. Appetite:good Energy level:I've been tired more lately. Denies fevers or recent illness. Resp:I've been coughing the last 2 days. 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 Past medical history, appointments, medications, allergies reviewed. No changes. EXAM: BP 127/81 Pulse 72 Temp 36.3 ?C (97.4 ?F) Wt 100.9 kg (222 lb 8 oz) BMI 28.38 kg/m2 APPEARANCE Well appearing, alert, in no acute distress, well-hydrated, well nourished. HEART RRR with normal S1 and S2, no murmurs LUNG clear to auscultation LYMPH NODES No cervical lymphadenopathy, No supraclavicular lymphadenopathy and No axillary lymphadenopathy. ABDOMEN bowel sounds normoactive, no bruits, soft, non-tender, non-distended, without organomegaly or palpable masses EXTREMITIES No edema NEURO Awake, alert and oriented x 3, Normal gait and No involuntary motions. SKIN Skin color, texture, turgor normal, no suspicious rashes or lesions RADIOLOGY: CT chest 10/14/17: IMPRESSION: Stable postoperative changes from right upper lobe lobectomy, with a few stable 4 mm nodules in the right lung. ?No new nodules identified. Emphysema. No CT evidence of lymphadenopathy in the chest. Filling defects in the left brachiocephalic vein, SVC and azygos vein, highly suspicious for thrombosis. URGENT RESULTS: Communicated with Dr. Dave Noble on 10/14/2017 at 12:20 PM. ASSESSMENT/PLAN: 1. 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 2. Thrombus - ICD9: 453.9, ICD10: I82.90 3. Other acute pulmonary embolism without acute cor pulmonale (HCC) - ICD9: 415.19, ICD10: I26.99 - Reviewed CT chest with pt. - Continue xarelto. - CT abd/pelvis soon. - US extrem soon. - Follow up in [address] chest-pending CT and US. - Pt. aware to call office with any questions/concerns. The patient indicates understanding of these issues and agrees with the plan. Discussed case with Dr. Noble who agrees with treatment plan. Xuan Lora, [employer] CNOVSP Observed: 10/16/2017 Status: COMPLETED Source: [place] 9:30 [facility] REPOSITORY Visit (SP) Office (HEMAWS) CHECO GRAY ([id number]) 1945 M Date Time Provider Department 10/16/17 9:30 AM XUAN LORA (CHRISTIANO) RAFAELA During your visit today, we recorded the following information about you: Temperature Pulse Blood pressure Weight 97.4 degrees 72/minute 127/81 100.9 kg Charmaine Munguia LPN 10/16/2017 9:36 AM Signed Est patient. Six month ov. Discuss recent labs and CT scan. Charmaine Lora CNP 10/17/2017 12:31 PM Signed Chief Complaint Patient presents with: Established Patient HPI: Checo Gray is a 71 year old male who presents here today for follow up lung cancer. Per Dr. Noble's previous note: H/o RCC?(right nephrectomy at [facility] 2003; follows up with Dr. Hernandez), superficial bladder cancer, LUIS CARLOS?(underwent uvulopalatopharyngoplasty by Dr. Aguilera),?COPD?and gout. ?? He had been under the care of Dr. Freedman of for several year history of a right upper lobe nodule. This had been present since at least 2011. CT scan at that time showed it measured approximately 3.3 x 2.4 x 3.2 cm. In 2014 it was noted to increase to 4.3 x 2.7 x 3.0 cm. PET scan was performed and it demonstrated an SUV of 2 for that lesion. ?? Patient underwent a CT chest on 05/07/2016. The inhomogeneous soft tissue density in the posterior medial segment of the right upper lobe was not noted to change in size and measured 3.6 x 3.8 x 4.8 cm. ?? Patient was referred to a thoracic surgeon at [facility]. He ultimately underwent a?right thoracotomy with right upper lobe wedge resection and immediate right upper lobectomy along with mediastinal lymphadenectomy on 08/14/2016. ?? 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 The tumor was noted to invade into and focally through the visceral pleura. The staple resection margin was positive. In the lobectomy specimen there was an invasive moderately differentiated adenocarcinoma and bronchoalveolar adenocarcinoma measuring a 4.6 cm region adjacent to the staple line. Ten intrapulmonary lymph nodes were noted to be negative. Lymph nodes from level CDLVI and 8 were all negative for tumor. Final margins were all negative. The bronchial margin was 3 mm the vascular margin was 3 mm and the parenchymal margin was 3 mm. Lymphovascular invasion was not identified. The tumor was unifocal although removed in 2 sections. Final pathologic staging was pT3 N0. ?? Previous therapy: 1) Adjuvant carbo/paclitaxel. Last treatment?01/16/17. ? Pt. was started on xarelto after CT chest on Saturday. See below. Appetite:good Energy level:ANDquot;I've been tired more lately.ANDquot; Denies fevers or recent illness. 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 Past medical history, appointments, medications, allergies reviewed. No changes. EXAM: BP 127/81 Pulse 72 Temp 36.3 ?C (97.4 ?F) Wt 100.9 kg (222 lb 8 oz) BMI 28.38 kg/m2 APPEARANCE Well appearing, alert, in no acute distress, well- hydrated, well nourished. HEART RRR with normal S1 and S2, no murmurs LUNG clear to auscultation LYMPH NODES No cervical lymphadenopathy, No supraclavicular lymphadenopathy and No axillary lymphadenopathy. ABDOMEN bowel sounds normoactive, no bruits, soft, non-tender, non-distended, without organomegaly or palpable masses EXTREMITIES No edema NEURO Awake, alert and oriented x 3, Normal gait and No involuntary motions. SKIN Skin color, texture, turgor normal, no suspicious rashes or lesions RADIOLOGY: CT chest 10/14/17: IMPRESSION: Stable postoperative changes from right upper lobe lobectomy, with a few stable 4 mm nodules in the right lung. ?No new nodules identified. Emphysema. No CT evidence of lymphadenopathy in the chest. Filling defects in the left brachiocephalic vein, SVC and azygos vein, highly suspicious for thrombosis. URGENT RESULTS: Communicated with Dr. Dave Noble on 10/14/2017 at 12:20 PM. ASSESSMENT/PLAN: 1. 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 2. Thrombus - ICD9: 453.9, ICD10: I82.90 3. Other acute pulmonary embolism without acute cor pulmonale (HCC) - ICD9: 415.19, ICD10: I26.99 - Reviewed CT chest with pt. - Continue xarelto. - CT abd/pelvis soon. - US extrem soon. - Follow up in [address] chest-pending CT and US. - Pt. aware to call office with any questions/concerns. The patient indicates understanding of these issues and agrees with the plan. Discussed case with Dr. Noble who agrees with treatment plan. Xuan Lora, CHRISTIANO Referring Provider: DAVE NOBLE [[id number]] Allergies As of Date: 10/16/2017 (No Known Allergies) Date Reviewed: 10/16/2017 Reviewed by: Elena Walton Ct - Fully Assessed Reason for Visit: Established Patient [175] Primary Visit Diagnosis: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) [C34.11] Other Visit Diagnoses:Thrombus [I82.90] Other acute pulmonary embolism without acute cor pulmonale (HCC) [I26.99] Order(s):CT ABD/PEL W IVCON [[id number]] Order #: [id number] FUTURE iv contrast (radiology procedure)CT Chest ABD/PEL-Inject, intravenously, once for 1 dose.No IV access, insert saline lock prior to the beginning of sedation, infusion, injection of imaging exam. Discontinue saline lock post exam. If Pt. has a central line or IVAD, may access for administration according to line specific nursing protocol. Once exam is complete flush line and de- access according to line specific nursing protocol in the CT contrast administration guidelines link.Disp: 1 EachRfl: 0 enteric contrast (radiology procedure)For CT CHESTABD/PEL W IVCON Routine order Administer, As Directed One Time Only, via Oral, Rectal, both Oral and Rectal, Enteric Tube, Stoma or Indwelling Catheter, Enteric Contrast as designated per enteric contrast guidelinesDisp: 1 EachRfl: 0 US LEG VEIN DVT [facility] [[id number]] Order #: [id number] FUTURE US DVT UPPER BILAT [[id number]] Order #: [id number] FUTURE CT CHEST W IVCON [[id number]] Order #: [id number] FUTURE iv contrast (radiology procedure)CT Chest ABD/PEL-Inject, intravenously, once for 1 dose.No IV access, insert saline lock prior to the beginning of sedation, infusion, injection of imaging exam. Discontinue saline lock post exam. If Pt. has a central line or IVAD, may access for administration according to line specific nursing protocol. Once exam is complete flush line and de- access according to line specific nursing protocol in the CT contrast administration guidelines link.Disp: 1 EachRfl: 0 enteric contrast (radiology procedure)For CT CHESTABD/PEL W IVCON Routine order Administer, As Directed One Time Only, via Oral, Rectal, both Oral and Rectal, Enteric Tube, Stoma or Indwelling Catheter, Enteric Contrast as designated per enteric contrast guidelinesDisp: 1 EachRfl: 0 US ARM VEIN DVT [facility] [[id number]] Order #: [id number] FUTURE Follow-up and Disposition History Recorded Prescriptions as of 10/16/2017 Sig: RIVAROXABAN 15 MG TABLET Take 1 tablet by mouth twice * TEMAZEPAM 30 MG CAPSULE Take by mouth at bedtime as * ACETAMINOPHEN 500 MG TABLET Take 500 mg by mouth twice da* PANTOPRAZOLE 40 MG TABLET,DEL* Take 40 mg by mouth once bogdan* FEBUXOSTAT 40 MG TABLET Take 40 mg by mouth once bogdan* TESTOSTERONE CYPIONATE 100 MG* One IM injection twice monthl* PRAMIPEXOLE 0.5 MG TABLET Take two tablets by mouth twi* IV CONTRAST (RADIOLOGY PROCED* CT Chest ABD/PEL-Inject, intr* ENTERIC CONTRAST (RADIOLOGY P* For CT CHESTABD/PEL W IVCON R* IV CONTRAST (RADIOLOGY PROCED* CT Chest ABD/PEL-Inject, intr* ENTERIC CONTRAST (RADIOLOGY P* For CT CHESTABD/PEL W IVCON R* RIVAROXABAN 20 MG TABLET Take 1 tablet by mouth daily * Medication notes this encounter RIVAROXABAN 20 MG TABLET >> Charmaine Munguia LPN 10/16/2017 9:10 AM >> CHARMAINE MUNGUIA LPN SatOct 16, 2017 9:10 AM Has not started this dose yet. 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 Six month ov. Discuss recent labs and CT scan. Charmaine Munguia MICHELLE Encounter Status:Closed by XUAN LORA CNP on 10/17/17 PROGRESS Observed: 10/14/2017 Status: COMPLETED Source: [place] 12:09 PM [facility] REPOSITORY O ID: [id number] Author: Elena Walton Ct Service: (none) Author Type: (none) Type: Progress Notes Filed: 10/14/2017 12:10 PM Note Text: Radiology Service Progress Note PATIENT NAME: Checo Gray DATE OF SERVICE: October 14, 2017 TIME: 12:09 PM PATIENT IDENTITY VERIFICATION COMPLETED USING TWO (2) METHODS: Patient confirmed name verbally and Date of . PATIENT GENDER DATA: Male PATIENT RELEVANT IMPLANT DATA REVIEWED: Not Applicable CONTRAST INDUCED NEPHROPATHY RISK FACTORS: Patient age > 60 years CREATININE: Creatinine Date Value Ref Range Status 09/24/2016 1.75 (H) 0.73 - 1.22 mg/dL Final Creatinine, Whole Blood (iSTAT) Date Value Ref Range Status 10/14/2017 1.60 (H) 0.70 - 1.40 mg/dL Final 04/12/2017 1.70 (H) 0.70 - 1.40 mg/dL Final 01/15/2017 1.90 (H) 0.70 - 1.40 mg/dL Final eGFR-All Other Races Date Value Ref Range Status 10/14/2017 43 . Final Comment: eGFR (Estimated GFR) Units of measure: mL/min/1.73 meters squared eGFR is derived from the reexpressed MDRD Study equation using the following parameters: serum creatinine, age, gender and race. The creatinine assay has been calibrated to be traceable to IDMS. An eGFR <60 mL/min/1.73m2 for >3 months is consistent with chronic kidney disease. Refer to KDOQI guidelines for clinical interpretation. In patients with unstable renal function, e.g. those with acute kidney injury, the eGFR may not accurately reflect actual GFR. eGFR- Date Value Ref Range Status 10/14/2017 52 Final P.O.C.T. RESULTS: POC done: Yes, See Lab Tab October 14, 2017 RADIOLOGIST NOTIFIED?: No ALLERGIES: Reviewed and unchanged CONTRAST ALLERGY: NO. PERIPHERAL IV ACCESS: Ambulatory: IV type: Existing peripheral IV utilized, Site assessment: Clean,Dry and Intact, Site disposition Left in for next appointment RADIOLOGY DEPARTMENT: CT; Exam(s) Completed: Chest SIGNED BY: Elena Walton Ct October 14, 2017 12:[address] CHEST W IVCON Observed: 10/14/2017 Status: F Source: [place] 11:57 AM [facility] REPOSITORY * * *Final Report* * * DATE OF EXAM: Oct 14 2017 11:57AM [facility] 0539 - CT CHEST W IVCON / PROCEDURE REASON: Malignant neoplasm of upper lobe,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 or lung * * * * Physician Interpretation * * * * EXAMINATION: CHEST CT WITH CONTRAST Indication: Malignant neoplasm of upper lobe,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 or lung Technique: Spiral CT acquisition of the chest from the thoracic inlet to the upper abdomen following IV contrast. MQ: CTCW_4 Contrast: 50 mL Omnipaque [address] Dose-Length Product: 512 mGy*cm CT Dose Reduction Employed: Automated exposure control (AEC) Comparison: CT chest on 04/12/2017 RESULT: Limitations: None. Lines, tubes, and devices: None. Lung parenchyma and pleura: Status post right upper lobe lobectomy with postoperative changes. There is diffuse bronchial wall thickening in both lungs. Probably mild bronchiectasis in the right lower lobe. There are a few stable 4 mm nodules in the right lung, series 4 images 105 and 137. No new nodules identified. Stable left apical scarring and subpleural opacities, likely post inflammatory. Mild emphysema is again noted. No pleural effusions or pneumothorax. There are bilateral large pericardial fat pads. Thoracic inlet, heart, and mediastinum: Stable thyroid gland. No supraclavicular, axillary or mediastinal adenopathy. Note is made of irregular filling defects in the left brachiocephalic vein, SVC and azygos vein, series 3 images 55-68. The SVC appears somewhat dilated. The thoracic aorta, central pulmonary arteries and cardiac chambers have been stable without pericardial effusion/thickening. Bones and soft tissues: Stable chest wall soft tissue. There are degenerative changes in the spine. Upper abdomen: Limited study through the upper abdomen demonstrates postoperative changes from right nephrectomy. IMPRESSION: Stable postoperative changes from right upper lobe lobectomy, with a few stable 4 mm nodules in the right lung. No new nodules identified. Emphysema. No CT evidence of lymphadenopathy in the chest. Filling defects in the left brachiocephalic vein, SVC and azygos vein, highly suspicious for thrombosis. URGENT RESULTS: Communicated with Dr. Dave Noble on 10/14/2017 at 12:20 PM. Manager Ethics[facility] Transcribe Date/Time: Oct 14 2017 12:11P Dictated by : GONZÁLEZ OTTO MD This examination was interpreted and the report reviewed and electronically signed by: GONZÁLEZ OTTO MD on Oct 14 2017 12:37PM EST [id number] [place] ISTAT BMP Collected: 10/14/2017 Status: F Source: [place] 9:35 AM [facility] REPOSITORY TYPE CODE TESTS RESULT OUT OF REFERENCE UNITS RANGE LAB NAWB 135-146 mmol/L Sodium, Whole 142 Bld LAB K1WB 3.5-5.0 mmol/L Potassium,Who 4.1 le Bld LAB CLWB 98-110 mmol/L Chloride, 101 Whole Bld LAB ICAWB 1.08-1.30 mmol/L Ionized 1.14 Calcium, WB Result Comment: Please note: This value represents ionized calcium not total calcium. LAB CO2WB 23-32 mmol/L TCO2, Whole Blood 28 LAB GLUWB 65-100 mg/dL Glucose, Whole Bld 81 LAB BUNWB 10-25 mg/dL BUN, Whole Blood 21 LAB BCRET 0.70-1.40 mg/dL High Creatinine,Wh ole Bld 1.60 LAB AGAPWB 0-15 mmol/L Anion Gap, Whole Bld 13 LAB GFRAA eGFR- Amer. 52 LAB GFRNAA . eGFR-All Other Races 43 Result Comment: eGFR (Estimated GFR) Units of measure: mL/min/1.73 meters squared eGFR is derived from the reexpressed MDRD Study equation using the following parameters: serum creatinine, age, gender and race. The creatinine assay has been calibrated to be traceable to IDMS. An eGFR <60 mL/min/1.73m2 for >3 months is consistent with chronic kidney disease. Refer to KDOQI guidelines for clinical interpretation. In patients with unstable renal function, e.g. those with acute kidney injury, the eGFR may not accurately reflect actual GFR. CBC W/DIFF, AUTOMATED Collected: 09/25/2017 Status: F Source: [place] 10:16 AM [facility] REPOSITORY TYPE CODE TESTS RESULT OUT OF RANGE REFERENCE UNITS LAB L100.1000 4.4-11.0 K/mm3 Normal WBC 6.2 LAB L100.1200 4.6-6.2 M/mm3 Normal RBC 5.39 LAB L100.1300 13.0-16.5 g/dl High HGB 16.8 LAB L100.1400 40-54 % Normal HCT 49.0 LAB L100.1500 80-94 fL Normal MCV 90.9 LAB L100.1600 27.0-32.0 pg Normal MCH 31.2 LAB L100.1700 32-36 g/gl Normal MCHC 34.3 LAB L100.1810 11.6-14.6 % Normal RDW CV 14.1 LAB L100.1820 35.1-43.9 fl High RDW SD 46.9 LAB L100.1900 150-450 K/mm3 Normal PLT 168 LAB L100.2000 6.2-12.0 fl Normal MPV 11.2 LAB L100.2100 47-70 % High NEUT% 74.2 LAB L100.2200 19-41 % Low LY% 12.5 LAB L100.2300 0-10 % Normal MONO% 8.8 LAB L100.2400 0-5 % Normal EO% 1.6 LAB L100.2500 0-1 % Normal BASO% 0.5 LAB L100.2550 0.0-0.9 % High IM GRAN % 2.400 Result Comment: IG% - Immature Granulocytes (promyelocytes, myelocytes and metamyelocytes) > 1% indicates that a LEFT SHIFT is Present. LAB L100.2620 2.0-7.7 X10 3/uL Normal Absolute Neut 4.6 LAB L100.2720 0.83-4.51 X10 3/ul Low Absolute Lymph 0.78 LAB L100.9900 Normal PATH REV Reviewed Result Comment: Neutrophilic left shift. Clinical correlation necessary. Reji Garrison M.D. 09/26/17 Performed By: #### L100.0100 #### [facility] [address] [place], [address] TESTOSTERONE, SERUM TOTAL Collected: 09/25/2017 Status: F Source: [place] 10:16 AM [facility] REPOSITORY TYPE CODE TESTS RESULT OUT OF REFERENCE UNITS RANGE LAB L509.3000 ng/dL Testosterone Normal 829.60 Result Comment: NORMAL REFERENCE RANGES MALE AGE <50 123.06 - 813.86 ng/dL MALE AGE >50 89.98 - 780.10 ng/dL FEMALE PREMENOPAUSE AGE 21 - 60 9.01 - 47.94 ng/dL FEMALE POSTMENOPAUSE AGE 45 - 89 <7.00 - 45.62 ng/dL REFERENCE RANGE AND METHODOLOGY CHANGED 07/24/2017 Performed By: #### L509.3000 #### [facility] [address] [place], [address] COMPREHENSIVE METABOLIC Collected: 09/25/2017 Status: F Source: [facility] 10:16 AM [facility] REPOSITORY TYPE CODE TESTS RESULT OUT OF RANGE REFERENCE UNITS LAB L501.0100 74-106 mg/dL Normal GLU 78 Result Comment: Please note revised GLUCOSE reference range effective 2017. LAB L501.1000 7-18 mg/dL High BUN 20 LAB L501.1100 0.70-1.30 mg/dL High CREAT,SERUM 1.60 Result Comment: The validity of the calculated GFR AND GFRAA in patients over 70 years has not been determined. Clinical correlation is essential. LAB L501.1110 >60 mL/min Low EST GFR 45 Result Comment: Non- GFR Calc LAB L501.1115 >60 mL/min Low EST GFR - AA 55 Result Comment: GFR Calc LAB L501.1300 10-20 RATIO Normal BUN/CRE 12.5 LAB L501.1500 6.4-8.2 g/dL T Normal PROT 7.5 LAB L501.1800 3.2-5.0 g/dL Normal ALB 3.7 LAB L501.1950 2.2-4.2 g/dL Normal GLOB 3.8 LAB L501.2000 0.9-2.4 RATIO Normal A/G 1.0 LAB L501.2200 8.5-10.1 mg/dL CA Normal 8.7 LAB L501.4100 15-37 U/L Low AST 14 LAB L501.4305 45-117 U/L Normal ALK P 66 LAB L501.4405 16-61 U/L Normal ALT 26 Result Comment: Please note revised ALT reference range effective 2017. LAB L501.4600 0.20-1.00 mg/dL Normal T BILI 0.80 LAB L501.5300 136-145 mmol/L Normal NA 138 LAB L501.5600 3.5-5.1 mmol/L Normal K 4.2 LAB L501.5900 98-107 mmol/L Normal CL 102 LAB L501.6100 21.0-32.0 mmol/L Normal CO2 28.0 LAB L501.6200 5-15 Normal GAP 8 Performed By: #### L500.4050, L501.1400, L501.9520 #### [facility] [address] [place], [place], [id number] URIC ACID Collected: 09/25/2017 Status: F Source: [place] 10:16 AM [facility] REPOSITORY TYPE CODE TESTS RESULT OUT OF RANGE REFERENCE UNITS LAB L501.1400 3.5-7.2 mg/dL High URIC 7.6 Result Comment: The drugs N-Acetylcysteine and Metamizole may falsely depress this assay. Performed By: #### L500.4050, L501.1400, L501.9520 #### [facility] [address] [place], [place], [address] THYROID STIM HORMONE Collected: 09/25/2017 Status: F Source: [place] (TSH) 10:16 AM [facility] REPOSITORY TYPE CODE TESTS RESULT OUT OF RANGE REFERENCE UNITS LAB L501.9520 0.358-3.74 uIU/mL Normal TSH 1.96 Performed By: #### L500.4050, L501.1400, L501.9520 #### [facility] [address] [place], [address] ALLERGIES ALLERGIES DATE TYPE / CODE NAME / CODE REACTION SEVERITY SOURCE 07/15/2018 Drug No Known Unknown [facility] Allergy/416 Allergies/G18307 Hospital 510048(SNOM 0388(RXNORM) Repository ED CT) Drug NO KNOWN [facility] Class/50933 ALLERGIES [address] [place] 1003(SNOMED Repository CT) ENCOUNTERS ENCOUNTERS ADMIT/DISCHARGE ACCOUNT NUMBER ADMITTING ENCOUNTER LOCATION SOURCE CLASS 07/22/2018 [id number] Ambulatory [facility] ding:PT Repository 07/15/2018 [id number] Ambulatory [facility] ding:HPRAD Repository 07/15/2018/07/15/20 [id number] Ambulatory BMSBuilding: [place] 18 BMS.[facility] Repository 07/08/2018 [id number] Ambulatory Building:CT5 [facility] Repository 07/03/2018 [id number] Ambulatory [facility] ding:HPRAD Repository 07/03/2018/07/03/20 [id number] Ambulatory BMSBuilding: [place] 18 BMS.[facility]ly [facility] Repository 06/20/2018 [id number] Ambulatory [facility] Repository 06/17/2018/06/19/20 [id number] Ambulatory [address] Repository 06/17/2018 [id number] Ambulatory [facility] ding:HPRAD Repository 06/17/2018/06/17/20 [id number] Ambulatory BMSBuilding: [place] 18 BMS.[facility]ly [facility] Repository 06/17/2018/06/23/20 [id number] Ambulatory [address] Repository 06/13/2018 [id number] Ambulatory [facility] ding:US Repository 06/06/2018 [id number] Ambulatory [facility] ding:POLAB3 Repository 05/08/2018 [id number] Ambulatory [facility] ding:LAB.FUT Repository URE 04/25/2018/04/27/20 [id number] OTTO, Inpatient Building:[address] [place] [address] MARGARITA Encounter Room: [place] [address]Bed: A [facility] Repository 04/21/2018/04/21/20 [id number] FINN LAGUNAS Ambulatory Building:[address] VIRRoom: [facility] Repository 04/18/2018/04/24/20 [id number] Ambulatory [address] Repository 04/16/2018 [id number] Ambulatory Building:ERD [facility] Repository 04/16/2018 [id number] Ambulatory Building:[facility] Repository 04/16/2018 [id number] [facility] 04/16/2018 [id number] Ambulatory Building:[facility] Repository 04/16/2018 [id number] Ambulatory Building:[facility] Repository 04/02/2018/04/02/20 [id number] Ambulatory [address] ding:PT Repository 04/01/2018/04/01/20 [id number] Ambulatory BMSBuilding: [place] [facility] Repository 03/31/2018 [id number] Ambulatory [facility] ding:POLAB3 Repository 03/03/2018 [id number] Ambulatory [facility] ding:MRI Repository 03/03/2018 [id number] Ambulatory Building:IMG [facility] Repository 02/25/2018 [id number] Ambulatory [facility] ding:HPRAD Repository 02/25/2018/02/26/20 [id number] Ambulatory BMSBuilding: [address] Repository 02/25/2018 [id number] Ambulatory Building:IMG [facility] Repository 12/30/2017/12/31/19 [id number] Emergency [address] ding:ED Repository 12/11/2017 [id number] Ambulatory [facility] ding:POLAB3 Repository 12/04/2017 [id number] Ambulatory [facility] ding:POLAB3 Repository 10/17/2017/10/19/19 [id number] Ambulatory [address] [place] Repository 10/17/2017/10/19/19 [id number] Ambulatory [address] Repository 10/17/2017/10/18/19 [id number] Ambulatory [address] Repository 10/16/2017 [id number] Ambulatory [facility] ding:PSN Repository 10/16/2017/10/17/19 [id number] Ambulatory [address] [place] Repository 10/16/2017/10/17/19 [id number] Ambulatory [address] [place] Repository 10/16/2017/10/19/19 [id number] Ambulatory [address] [place] Repository 10/14/2017/10/19/19 [id number] Ambulatory [address] [place] Repository 10/14/2017 [id number] Ambulatory [facility] [place] Repository 10/14/2017 [id number] Ambulatory [facility] [place] Repository 10/14/2017/10/15/19 [id number] Ambulatory [address] [place] Repository 10/14/2017/10/15/19 [id number] Ambulatory [address] [place] Repository 09/25/2017 [id number] Ambulatory [facility] ding:POLAB3 Repository PAYERS PAYERS ENCOUNTER GUARANTOR PAYER SUBSCRIBER SOURCE 07/22/2018 CHECO Maharaj Primary CHECO [id number] Insurance:MEDICARE CLARKDOB: Formerly [facility] PART A [facility] [id number] Number: Repository [id number]: [phone] [id number] [phone] () Date:2010-11-03 07/22/2018 Secondary CHECO N [place] Insurance:UNITED TH CLARKDOB: Community CARE [id number] Hospital Number: Repository [id number] Date:9175-09-09BH [facility] [address], [place] [address]KG: 07/22/2018 Tertiary NOT GIVENUNK [place] Insurance:SELF PAY [facility] Hospital Number: Effective Repository Date:2018-07-15 07/15/2018 CHECO N Primary CHECO N [place] [id number] Insurance:MEDICARE CLARKDOB: Community TINAJERO PART A [facility] [id number] Number: Repository [address]Fjb: 330 [id number] [phone] (HP) Date:2018-07-15 07/15/2018 Secondary CHECO N [place] Insurance:UNITED TH GAINESVILLEDOB: Community CARE [id number] Hospital Number: Repository [id number] Date:3897-83-02VG [facility] [place], [place] [address]JJ: 07/15/2018 Tertiary NOT GIVENUNK [place] Insurance:SELF PAY [facility] Number: Effective Repository Date:2018-07-15 07/15/2018 CHECO N Primary CHECO N [place] [id number] [address] Insurance:MEDICARE CLARKDOB: Community TINAJERO PART A [facility] [id number] Number: Repository [address]Ylf: 330 [id number] [phone] (HP) Date:2018-06-17 07/15/2018 Secondary CHECO N [place] Insurance:UNITED TH CLARKDOB: Community CARE [id number] Hospital Number: Repository [id number] Date:2806-96-21FU [facility] [address]34391CG[place]KRM, [place] [address]MV: 07/15/2018 Tertiary NOT GIVENUNK [place] Insurance:SELF PAY [facility] Hospital Number: Effective Repository Date:2018-07-15 07/08/2018 CHEOC N Primary CHECO N [facility] CLARKDOB: Insurance:MEDICARE A CLARKDOB: [place] [id number] W AND [facility] Number: [id number] [facility] [id number] [address] [place], [place] Date:8363-56-27Hqfz [place], [place] Repository [address]Rec: 330) Name:CARE [id number]: (HP) [id number] (HP) 07/08/2018 Secondary CHECO N [facility] [place] Number: [id number] [facility] [id number] [address] [facility] Date:3540-07-84Mdtx [place], [place] Repository Name:MANAGED CARE [id number]: () 07/03/2018 CHECO N Primary CEHCO N [place] [id number] Insurance:MEDICARE CLARKDOB: Community TINAJERO PART A [facility] [id number] Number: Repository [address]Lwe: 330 [id number] [phone] (HP) Date:2018-07-03 07/03/2018 Secondary CHECO N [place] Insurance:[facility] CLARKDOB: [facility] CARE [id number] [id number] Hospital Number: Repository [id number] Date:1002-57-30[address]PKKX[place], [place] [address]QQ: 07/03/2018 Tertiary NOT GIVENUNK Claus Insurance:SELF PAY [facility] Number: Effective Repository Date:2018-07-03 07/03/2018 CHECO N Primary CHECO N Erwin [id number] W Insurance:MEDICARE CLARKDOB: Community TINAJERO PART A [facility] [id number] Number: Repository 625[address]Qaq: 330 [id number] [phone] (HP) Date:2018-06-17 07/03/2018 Secondary CHECO N Claus Insurance:UNITED TH CLARKDOB: Community CARE [id number] Hospital Number: Repository [id number] Date:0942-88-48JK [facility] 716577RGVBUWQ, [place] [address]FD: 07/03/2018 Tertiary NOT GIVENUNK Claus Insurance:SELF PAY [facility] Hospital Number: Effective Repository Date:2018-07-03 06/17/2018 CHECO N Primary CHECO N Claus [id number] W Insurance:MEDICARE CLARKDOB: Community TINAJERO PART A [facility] [id number] Number: Repository [id number]: 330 [id number] [phone] (HP) Date:2018-06-17 06/17/2018 Secondary CHECO N Claus [facility] CARE [id number] Hospital Number: Repository [id number] Date:8524-70-77WC [facility] 343934HXEQCME, [place] [address]CS: 06/17/2018 Tertiary NOT GIVENUNK Erwin Insurance:SELF PAY [facility] Number: Effective Repository Date:2018-06-17 06/17/2018 CHECO N Primary CHECO N Erwin [id number] W Insurance:MEDICARE CLARKDOB: Community TINAJERO PART A [facility] [id number] [place] Number[facility] Repository [address]Rew: 330 [id number] [phone] (HP) Date:2018-04-28 06/17/2018 Secondary CHECO N Claus Insurance:UNITED TH CLARKDOB: Community CARE [id number] [id number] Hospital Number: Repository [id number] Date:1340-98-12UG [facility] 645608FITVUVR, [place] [address]AI: 06/17/2018 Tertiary NOT GIVENUNK Claus Insurance:SELF PAY [facility] Number: Effective Repository Date:2018-06-17 06/13/2018 CHECO N Primary CHECO N Claus [id number] W Insurance:MEDICARE CLARKDOB: Community TINAJERO PART A [facility] [id number] Number: Repository [id number]: 330 [id number] [phone] (HP) Date:2018-06-11 06/13/2018 Secondary CHECO N Erwin Insurance:UNITED HLTH CLARKDOB: Community CARE [address] [place] [address] [id number] Hospital Number: Repository [id number] Date:7820-62-84LE [address] [place] [address]TE: 06/13/2018 Tertiary NOT GIVENUNK Claus Insurance:SELF PAY [facility] Number: Effective Repository Date:2018-06-11 06/06/2018 CHECO N Primary CHECO N Erwin [id number] W Insurance:MEDICARE CLARKDOB: [facility] PART A [facility] [id number] [facility] Number: Repository [id number]: 330 [id number] [phone] (HP) Date:2017-12-11 06/06/2018 Secondary CHECO N Claus Insurance:UNITED TH CLARKDOB: [facility] CARE [address] [place] [address] [id number] Hospital Number: Repository [id number] Date:2265-38-81IX [address]CMJPENV, [place] [address]OY: 06/06/2018 Tertiary NOT GIVENUNK Claus Insurance:SELF PAY [facility] Number: Effective Repository Date:2017-12-11 05/08/2018 CHECO N Primary CHECO N Claus [id number] W Insurance:MEDICARE CLARKDOB: [facility] PART A [facility] [id number] [facility]urban [facility] Number: Repository [id number]: 330 [id number] [phone] (HP) Date:2018-05-08 05/08/2018 Secondary CHECO N Claus Insurance:UNITED HLTH CLARKDOB: Community CARE [id number] Hospital Number: Repository [id number] Date:8516-57-79QU [address]TJDXMGA, [place] [address]YV: 05/08/2018 Tertiary NOT GIVENUNK Erwin Insurance:SELF PAY [facility] Hospital Number: Effective Repository Date:2018-05-08 04/25/2018 CHECO N Primary CHECO N [facility] CLARKDOB: Insurance:MEDICARE A [facility] [place] W AND BPolicy Number: [id number] [facility] [id number] [address] [place], [place] Date:3927-97-66Epyu [place] Repository [address]Xvr: (330) Name:CARE [id number]: () [id number] () 04/25/2018 Secondary CHECO N [facility] Number: [id number] [facility] [id number] [address] [facility] Date:5206-65-78Oovw [place] Repository Name:MANAGED CARE [id number]: () 04/21/2018 CHECO N Primary CHECO N [facility] CLARKDOB: Insurance:MEDICARE A MARINADOB: [place] [id number] AND BPolicy Number: [id number] [facility] [id number] [address] [place], [place] Date:0384-50-44Rgha [place] Repository [address]Qml: (330) Name:CARE [id number]: (HP) [id number] () 04/21/2018 Secondary CHECO N [facility] GAINESVILLEDOB: University Number: [id number] [facility] [id number] 5 [facility] Date:0084-05-59Hyte [place] Repository Name:MANAGED CARE [id number]: () 04/16/2018 CHECO N Primary CHECO N [facility] CLARKDOB: Insurance:MEDICARE A GAINESVILLEDOB: [place] AND BPolicy Number: [id number] [facility] [id number] [address] [place] [address] Date:0641-02-05Vmhl [place] Repository [address]Znf: (330) Name:CARE [id number]: (HP) [id number] () 04/16/2018 Secondary CHECO N [facility] Insurance:[facility] HospitalD[facility]: University Number: [id number] [facility] [id number] [address] [place] [address] Date:4250-72-91Wula [place] Repository Name:MANAGED CARE [id number]: () 04/16/2018 CHECO N Primary CHECO N [facility] CLARKDOB: Insurance:MEDICARE A MARINADOB: [place] AND BPolicy Number: [id number] [facility] [id number] [address] [place] [address] Date:1700-63-67Mgtx [place] Repository [address]Saf: (330) Name:CARE [id number]: (HP) [id number] () 04/16/2018 Secondary CHECO N [facility] Insurance:[facility] HospitalD[facility]: University Number: [id number] [facility] [id number] [address] [place] [address] Date:7745-23-33Girf [place] Repository Name:MANAGED CARE [id number]: () 04/16/2018 CHECO N Primary CHECO N [facility] CLARKDOB: Insurance:MEDICARE A CLARKDOB: [place] AND BPolicy Number: [id number] [facility] [id number] [address] [place], [place] Date:9471-95-96Rljy [place] Repository [address]Uke: (330) Name:CARE [id number]: (HP) [phone] (HP) 04/16/2018 Secondary CHECO N [facility] Insurance:[facility]: University Number: [id number] [facility] [id number] [address] [place] [address] Date:0363-24-78Oxgd [place] Repository Name:MANAGED CARE [id number]: (HP) 04/16/2018 CHECO N Primary CHECO N [facility] CLARKDOB: Insurance:MEDICARE A [facility]: [place] [id number] AND BPolicy Number: [id number] [facility] [id number] [address] [place], [place] Date:3336-15-43Eqwg [place] Repository 86806Fcl: (330) Name:CARE 39107Bfa: (HP) [phone] (HP) 04/16/2018 Secondary CHECO N [facility] University Number: [id number] [facility] [id number] [address] [place] [address] Date:8613-13-41Flki [place] Repository Name:MANAGED CARE [id number]: (HP) 04/16/2018 CHECO N Primary CHECO N [facility] CLARKDOB: Insurance:MEDICARE A MARINAB: [place] [id number] AND BPolicy Number: [id number] [facility] [id number] [address] [place] [address] Date:4092-86-79Hcbl [place] Repository 84566Byp: (330) Name:CARE [id number]: (HP) [phone] (HP) 04/16/2018 Secondary CHECO N [facility] Insurance:[facility] GAINESVILLEDOB: [place] Number: [id number] [facility] [id number] [address] [place] [address] Date:3681-91-16[place], [place] Repository Name:[facility] CARE [id number]: (HP) 04/02/2018 CHECO N Primary CHECO N Erwin [id number] W Insurance:MEDICARE CLARKDOB: [facility] PART A [facility] [id number] Number: Repository [id number]: (099) [id number] [phone] (HP) Date:2010-11-03 04/02/2018 Secondary CHECO N Erwin Insurance:UNITED [facility] CLARKDOB: [facility] CARE [id number] Hospital Number: Repository [id number] Date:7222-14-35ZC [address]GMXHBSQ, [place] [address]WN: 04/02/2018 Tertiary NOT GIVENUNK Claus Insurance:SELF PAY [facility] Number: Effective Repository Date:2018-02-25 04/01/2018 CHECO N Primary CHECO N Claus [id number] W Insurance:MEDICARE CLARKDOB: [facility] [id number] Number: Repository [id number]: (004) [id number] [phone] () Date:2018-02-26 04/01/2018 Secondary CHECO N Claus Insurance:UNITED TH CLARKDOB: Community CARE 10372Panohl [id number] Hospital Number: Repository [id number] Date:2797-99-62SK [address]XOKXATD, [place] [address]QZ: 04/01/2018 Tertiary NOT GIVENUNK Erwin Insurance:SELF PAY [facility] Number: Effective Repository Date:2018-04-01 03/31/2018 CHECO N Primary CHECO N Claus [id number] W Insurance:MEDICARE CLARKDOB: Community TINAJERO PART A [facility] [id number] Number: Repository 49490Cvq: 330 [id number] [phone] (HP) Date:2018-03-31 03/31/2018 Secondary CHECO N Erwin Insurance:UNITED TH CLARKDOB: Community CARE [address] [place] [address] [id number] Hospital Number: Repository [id number] Date:0194-13-60W[address], [place] [address]PI: 03/31/2018 Tertiary NOT GIVENUNK Claus Insurance:SELF PAY [facility] Number: Effective Repository Date:2018-03-31 03/03/2018 CHECO N Primary CHECO N Claus [id number] W Insurance:MEDICARE CLARKDOB: Community TINAJERO PART A [facility] [id number] [place] Number: Repository 39105Izt: 330 [id number] [phone] () Date:2018-02-26 03/03/2018 Secondary CHECO N Erwin Insurance:UNITED TH CLARKDOB: [facility] CARE [address] [place] [address] [id number] Hospital Number: Repository [id number] Date:8696-74-25DC [address]AFDBYKS, [place] [address]QP: 03/03/2018 Tertiary NOT GIVENUNK Erwin Insurance:SELF PAY [facility] Number: Effective Repository Date:2018-02-26 02/25/2018 CHECO N Primary CHECO N Claus [id number] W Insurance:MEDICARE CLARKDOB: Community TINAJERO PART A [facility] [id number] Number: Repository 07166Par: 330 [id number] [phone] (HP) Date:2018-02-25 02/25/2018 Secondary CHECO N Claus Insurance:UNITED TH CLARKDOB: Community CARE [address] [place] [address] [id number] Hospital Number: Repository [id number] Date:3514-04-33NM [address]SCPTWPH, [place] [address]JJ: 02/25/2018 Tertiary NOT GIVENUNK Claus Insurance:SELF PAY [facility] Number: Effective Repository Date:2018-02-25 02/25/2018 CHECO N Primary CHECO N Erwin [id number] W Insurance:MEDICARE CLARKDOB: Community TINAJERO PART A [facility] [id number] [facility] [place] Number: Repository 25942Way: 330 [id number] [phone] () Date:2018-02-11 02/25/2018 Secondary CHECO N Erwin Insurance:UNITED HLTH CLARKDOB: Community CARE [address] [place] [address] [id number] Hospital Number: Repository [id number] Date:5380-35-35RG [facility] 319456LANYVHU, [place] [address]BD: 02/25/2018 Tertiary NOT GIVENUNK Erwin Insurance:SELF PAY [facility] Number: Effective Repository Date:2018-02-25 12/30/2017 CHECO N Primary CHECO N Erwin [id number] W Insurance:MEDICARE CLARKDOB: Community TINAJERO PART A [facility] [id number] [place] Number: Repository 45921Rbk: 330 [id number] [phone] () Date:2017-12-30 12/30/2017 Secondary CHECO N Erwin Insurance:UNITED HLTH CLARKDOB: Community CARE [id number] Hospital Number: Repository [id number] Date:5990-97-31VU [facility] 603394STICTKM, [place] [address]YU: 12/30/2017 Tertiary NOT GIVENUNK Claus Insurance:SELF PAY [facility] Number: Effective Repository Date:2017-12-30 12/11/2017 CHECO N Primary CHECO N Erwin [id number] W Insurance:MEDICARE CLARKDOB: Community TINAJERO PART A [facility] [id number] [facility]urban [facility] Number[place] Repository [id number]: 330 [id number] [phone] (HP) Date:2017-12-11 12/11/2017 Secondary CHECO N Claus Insurance:UNITED HLTH CLARKDOB: Community CARE [address] [place] [address] [id number] Hospital Number: Repository [id number] Date:7789-79-84JP [facility] 991621GYOQWPY, [place] [address]JA: 12/11/2017 Tertiary NOT GIVENUNK Claus Insurance:SELF PAY [facility] Number: Effective Repository Date:2017-12-11 12/04/2017 CHECO N Primary CHECO N Claus [id number] W Insurance:MEDICARE CLARKDOB: Community TINAJERO PART A [facility] [id number] Number: Repository 16457Xco: 330 [id number] [phone] () Date:2017-12-04 12/04/2017 Secondary CHECO N Erwin Insurance:UNITED HLTH CLARKDOB: [facility] CARE [address] [place] [address] [id number] Hospital Number: Repository [id number] Date:0433-82-90NU [facility] 775117EUMITVQ, [place] [address]PJ: 12/04/2017 Tertiary NOT GIVENUNK Claus Insurance:SELF PAY [facility] Number: Effective Repository Date:2017-12-04 10/16/2017 CHECO N Primary CHECO N Erwin [id number] W Insurance:MEDICARE CLARKDOB: Community TINAJERO PART A [facility] [id number] [place] Number: Repository 45389Tsm: 330 [id number] [phone] (HP) Date:2017-10-16 10/16/2017 Secondary CHECO N Erwin Insurance:UNITED TH CLARKDOB: [facility] CARE [address] [place] [address] [id number] Hospital Number: Repository [id number] Date:5682-69-52JK [facility] 292190JDDNORE, [place] [address]YW: 10/16/2017 Tertiary NOT GIVENUNK Claus Insurance:SELF PAY [facility] Number: Effective Repository Date:2017-10-16 09/25/2017 CHECO Maharaj Primary CHECO N Erwin [id number] W Insurance:MEDICARE CLARKDOB: Community TINAJERO PART A [facility] [id number] Number: Repository [id number]: (563) [id number] [phone] () Date:2017-09-25 09/25/2017 Secondary CHECO Devlin Insurance:[facility] CLARKDOB: Community CARE [id number] [id number] Hospital Number: Repository [id number] Date:0823-27-90FV [address]RJPOOGA, [place] [address]BY: 09/25/2017 Tertiary NOT GIVENUNK Claus Insurance:SELF PAY [facility] Number: Effective Repository Date:2017-09-25
== END ==
PROVIDERS: Family Provider Family Medicine Geriatric Medicine; PCP Family Medicine Geriatric Medicine; Referring Provider Physician Assistant; Visit Provider Physician Assistant
DX: M25.511 Pain in right shoulder (principal)
CPT/HCPCS: 73030

== ENCOUNTER → 2018-07-15 13:14 | Outpatient (CLI) | payer MEDICARE, OTHER, SELFPAY ==
--- NOTE | 2018-07-15 13:18 | RAD_ITS ---
STUDY: X-RAY - LUMBAR SPINE REASON FOR EXAM: Male, 72 years old. dorsalgia, chronic pain TECHNIQUE: 2 view(s) of the lumbar spine were obtained. COMPARISON: June 17, 2018 FINDINGS: Normal lumbar lordosis. There is posterior fusion at L3, L4, L5 and S1. There is a disc spacer at L3/L4. Findings are stable since the prior examination There is multilevel endplate spondylosis of the lumbar vertebrae. There is multi-level degenerative disc disease with multi-level disc space narrowing. There is atherosclerotic calcification of the abdominal aorta. There is IVC filter. RAD/Lumbar Spine 2 or 3 Views IMPRESSION: Stable posterior fusion Electronically Signed: Walter Peguero MD at 8:13 EST Tel , Service support ,
--- OUTSIDE RECORDS SUMMARY | 2018-08-31 17:25 | XMS RPT_ITS ---
:1945 Author Organization OHIP Support Name Relationship Address Phone STEVEN GRAY Unavailable [address] + [place] [address] R Unavailable Unavailable Unavailable STEVEN GRAY Unavailable Unavailable + CHECO GRAY Unavailable Unavailable Unavailable STEVEN GRAY Unavailable [address] + [place] [address] R Unavailable Unavailable Unavailable STEVEN GRAY Unavailable [address] + [place] [address] R Unavailable Unavailable Unavailable STEVEN GRAY Unavailable Unavailable + CHECO GRAY Unavailable Unavailable Unavailable STEVEN GRAY Unavailable [address] + [place] [address] R Unavailable Unavailable Unavailable STEVEN GRAY Unavailable [address] + [place] [address] R Unavailable Unavailable Unavailable STEVEN GRAY Unavailable [address] + [place] [address] R Unavailable Unavailable Unavailable STEVEN GRAY Unavailable [address] + [place] [address] R Unavailable Unavailable Unavailable STEVEN GRAY Unavailable [address] + [place] [address] R Unavailable Unavailable Unavailable STEVEN GRAY Unavailable [address] + [place] [address] R Unavailable Unavailable Unavailable STEVEN GRAY Unavailable [address] + [place] [address] R Unavailable Unavailable Unavailable STEVEN GRAY Unavailable Unavailable + CHECO GRAY Unavailable Unavailable Unavailable STEVEN GRAY Unavailable Unavailable + CHECO GRAY Unavailable Unavailable Unavailable STEVEN GRAY Unavailable Unavailable + CHECO GRAY Unavailable Unavailable Unavailable STEVEN GARY Unavailable Unavailable + CHECO GRAY Unavailable Unavailable Unavailable STEVEN GRAY Unavailable Unavailable + CHECO GRAY Unavailable Unavailable Unavailable STEVEN GRAY Unavailable Unavailable + CHECO GRAY Unavailable Unavailable Unavailable STEVEN GRAY Unavailable Unavailable + CHECO GRAY Unavailable Unavailable Unavailable STEVEN GRAY Unavailable [address] + [place] [address] R Unavailable Unavailable Unavailable CAROLINA GRYAA Unavailable [address] + [place] [address] R Unavailable Unavailable Unavailable STEVEN GRAY Unavailable [address] + [place] [address] R Unavailable Unavailable Unavailable STEVEN RGAY Unavailable [address] + [place] [address] R Unavailable Unavailable Unavailable MARINASTEVEN Unavailable Unavailable Unavailable STEVEN GRAY Unavailable [address] + [place] [address] R Unavailable Unavailable Unavailable CAROLINA GRAYA Unavailable [address] + [place] [address] R Unavailable Unavailable Unavailable STEVEN GRAY Unavailable Unavailable + CHECO GRAY Unavailable Unavailable Unavailable STEVEN GRAY Unavailable [address] + [place] [address] R Unavailable Unavailable Unavailable STEVEN GRAY Unavailable [address] + [place] [address] R Unavailable Unavailable Unavailable CAROLINA GRAYA Unavailable [address] + [place] [address] R Unavailable Unavailable Unavailable MARINACAROLINAA Unavailable [address] + [place] [address] R Unavailable Unavailable Unavailable MARINACAROLINAA Unavailable [address] + [place] [address] R Unavailable Unavailable Unavailable Care Team Providers Name Role Phone MARGARITA OTTO Attending Unavailable MARGARITA OTTO Referring Unavailable OTTO, MARGARITA Admitting Unavailable OTTOKERRYMARGARITA Attending Unavailable CONSULT, GENERAL MEDICINE Consulting Unavailable OTTO, MARGARITA Attending Unavailable OTTO, MARGARITA Referring Unavailable LAWRENCE PATRICIO Attending Unavailable GRIMME, AMY L Referring Unavailable RAMESH, DAVID-CHI Primary Care Unavailable LAWRENCE PATRICIO Attending Unavailable GRIMME, AMY L Referring Unavailable RAMESH, DAVID-CHI Primary Care Unavailable OTTOKERRYMARGARITA Attending Unavailable SELF, SELF Referring Unavailable RAMESH, [...] Referring Unavailable RAMESH, DAVID-CHI Primary Care Unavailable KHABIRI, HK CELSO Admitting Unavailable KHABIRI, HK CELSO Attending Unavailable RAMESH, DAVID-CHI Primary Care Unavailable KHABIRI, HK CELSO Referring Unavailable LORA, XUAN (OPTOMETRIC TECHNOLOGIST) Referring Unavailable LORA, XUAN (OPTOMETRIC TECHNOLOGIST) Referring Unavailable LORA, XUAN (OPTOMETRIC TECHNOLOGIST) Referring Unavailable LORA, XUNA (OPTOMETRIC TECHNOLOGIST) Referring Unavailable LORA, XUAN (OPTOMETRIC TECHNOLOGIST) Referring Unavailable LORA, XUAN (OPTOMETRIC TECHNOLOGIST) Attending Unavailable DAVE NOBLE Referring Unavailable LORA, XUAN (OPTOMETRIC TECHNOLOGIST) Referring Unavailable LORA, XUAN (OPTOMETRIC TECHNOLOGIST) Referring Unavailable LORA, XUAN (OPTOMETRIC TECHNOLOGIST) Referring Unavailable LORA, XUAN (OPTOMETRIC TECHNOLOGIST) Referring Unavailable LORA, XUAN (OPTOMETRIC TECHNOLOGIST) Referring Unavailable LORA, XUAN (OPTOMETRIC TECHNOLOGIST) Attending Unavailable LORA, XUAN (OPTOMETRIC TECHNOLOGIST) Referring Unavailable LORA, XUAN (OPTOMETRIC TECHNOLOGIST) Referring Unavailable LORA, XUAN (OPTOMETRIC TECHNOLOGIST) Referring Unavailable LORA, XUAN (OPTOMETRIC TECHNOLOGIST) Referring Unavailable Otto, Margarita Attending Unavailable Ramesh, David Chi Referring Unavailable Otto, Margarita Attending Unavailable Otto, Margarita Referring Unavailable Ramesh, David Chi Primary Care Unavailable Ayaan Griggs Attending Unavailable Otto, Margarita Referring Unavailable Ramesh, David Chi Primary Care Unavailable Ramesh, David Chi Attending Unavailable Ramesh, David Chi Primary Care Unavailable Ramesh, David Chi Attending Unavailable Ramesh, David Chi Primary Care Unavailable Amy Briggs Attending Unavailable Ramesh, David Chi Primary Care Unavailable ChesterAmy Attending Unavailable Chester, Amy Attending Unavailable Ramesh, David Chi Primary Care Unavailable Ramesh, David Chi Primary Care Unavailable Ellie Norman Attending Unavailable OttoMargarita Attending Unavailable Ramesh, David Chi Referring Unavailable [...] Attending Unavailable Ramesh, David Chi Referring Unavailable Wayt, Ayaan Attending Unavailable Wayt, Ayaan Referring Unavailable Ramesh, David Chi Primary Care Unavailable PROBLEMS PROBLEMS DATE TYPE CONDITION / CODE ATTENDING STATUS SOURCE 08/25/2018 Unknown M75.41 - Ayaan Griggs Active [place] [facility] syndrome of [facility] Hospital shoulder / Repository M75.41(ICD-10) 08/25/2018 Unknown Z98.1 - Arthrodesis ZoltanAyaan shannon Active [place] status / Community Z98.1(ICD-10) Hospital Repository 07/25/2018 Admitting Chronic kidney KHABIRI, HK Active [facility] diagnosis disease, stage 3 [facility] (moderate) / [facility] N18.3(ICD-10) Center Repository 07/08/2018 Admitting Presence of other KHABIRI, HK Active [facility] diagnosis vascular implants [facility] and grafts / [facility] Z95.828(ICD-10) Center Repository 07/15/2018 Unknown M54.9 - Dorsalgia, Margarita Otto Active [place] unspecified / Community M54.9(ICD-10) Hospital Repository 07/15/2018 Unknown G89.29 - Other Margarita Otto Active [place] chronic pain / Community G89.29(ICD-10) Hospital Repository 07/08/2018 Admitting Encounter for other KHABIRI, HK Active [place] [facility] diagnosis preprocedural [facility] examination / [facility] Z01.818(ICD-10) Center Repository 07/03/2018 Unknown M25.511 - Pain in Ayaan Griggs Active [place] right shoulder / Community M25.511(ICD-10) Hospital Repository 06/17/2018 Unknown M54.5 - Low back Margarita Otto Active [place] pain / Community M54.5(ICD-10) Hospital Repository 06/13/2018 Unknown C64.9 - Malignant Amy Briggs Active [place] neoplasm of Community unspecified kidney, Hospital except renal pelvis Repository / C64.9(ICD-10) 05/08/2018 Unknown N18.3 - Chronic Amy Briggs Active [place] kidney disease, Community stage 3 (moderate) Hospital / N18.3(ICD-10) Repository 04/26/2018 Admitting Obstructive sleep MARGARITA OTTO Active [facility] diagnosis apnea (adult) [place] (pediatric) / [facility] G47.33(ICD-10) Center Repository 04/25/2018 Admitting Arthrodesis status MARGARITA OTTO Active [facility] diagnosis / Z98.1(ICD-10) [facility] Repository 04/25/2018 Admitting Chronic obstructive MARGARITA OTTO [facility] diagnosis pulmonary disease, [facility] unspecified / [facility] J44.9(ICD-10) Center Repository 04/25/2018 Admitting Other pulmonary MARGARITA OTTO Active [facility] diagnosis embolism without [facility] acute cor pulmonale [facility] / I26.99(ICD-10) Center Repository 04/17/2018 Admitting Spinal stenosis, MANNIE OTTOBETH [facility] diagnosis lumbar region [facility] without neurogenic [facility] claudication / Center M48.061(ICD-10) Repository 04/17/2018 Admitting Other specified KHABIRI, HK Active [facility] diagnosis personal risk [facility] factors, not [facility] elsewhere Center classified / Repository Z91.89(ICD-10) 04/16/2018 Admitting Pre-op Exam / MARGARITA OTTO Active [facility] diagnosis [id number] [facility] Repository 04/16/2018 Admitting Preoperative LAWRENCE PATRICIO Active [facility] diagnosis Assessment / 279() [facility] Repository 04/02/2018 Unknown M79.604 - Pain in Margarita Otto Active [place] right leg / Community M79.604(ICD-10) Hospital Repository 03/31/2018 Unknown 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, 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 / Hospital E23.6(ICD-10) Repository 03/31/2018 Unknown E55.9 - Vitamin D Ramesh, David Chi Active [place] deficiency, Community unspecified / Hospital E55.9(ICD-10) Repository 03/31/2018 Unknown M10.9 - Gout, Ramesh, David Chi Active [place] unspecified / Community M10.9(ICD-10) Hospital Repository 03/31/2018 Unknown R53.83 - Other Ramesh, David Chi Active [place] fatigue / Community R53.83(ICD-10) Hospital Repository 03/31/2018 Unknown Z13.89 - Encounter Ramesh, David Chi Active [place] for screening for Community other disorder / Hospital Z13.89(ICD-10) Repository 03/03/2018 Unknown M54.16 - Margarita Otto Active [place] Radiculopathy, Community lumbar region / Hospital M54.16(ICD-10) Repository 12/11/2017 Unknown K62.5 - Hemorrhage Chester Amy Active [place] of anus and rectum Community / K62.5(ICD-10) Hospital Repository 10/17/2017 Active Unknown / NA Active [facility] [place] Repository 10/16/2017 Active Other pulmonary NA Active [facility] embolism without [facility] acute cor pulmonale [place] / I26.99(ICD-10) Repository 10/16/2017 Active Acute embolism and NA Active [facility] thrombosis of [facility] unspecified vein / [place] I82.90(ICD-10) Repository 09/24/2016 Active 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 REPOSITORY EXAM: IR VENA CAVA FILTER REMOVAL, 07/25/2018 12:21 PM CLINICAL INDICATIONS: Z95.828:Presence of IVC filter Z01.818:Pre-procedural examination MEDICATIONS: 11:23 AM 07/25/18 fentaNYL (SUBLIMAZE) injection 300 mcg 50 mcg Route: Intravenous; 11:23 AM 07/25/18 midazolam (VERSED) injection 10 mg 1 mg Route: Intravenous; 11:42 AM 07/25/18 fentaNYL (SUBLIMAZE) injection 300 mcg 50 mcg Route: Intravenous; 11:42 AM 07/25/18 midazolam (VERSED) injection 10 mg 1 mg Route: Intravenous; 12:05 PM 07/25/18 lidocaine (PF) 2 % injection 2 mL Route: Other; Total Fluoro Time: 2.6 minutes Operators: Celso Lagunas M.D. Consent: Following discussion of the risks, benefits and alternatives of the procedure, written informed consent was obtained. Moderate Sedation: I performed Moderate Sedation which included the presence of a nurse that assisted in monitoring the patients level of consciousness and physiological status. After administration of sedative medication(s), I spent minutes of continuous qary-sq-nssy time with the patient. COMPARISON: No prior studies available for comparison. TIME OUT: Prior to the procedure a time out was performed in the presence of the patient and all personnel involved in this case. The patient identity, procedure type, procedure side/site, and allergies were verified. ............................................................ TECHNIQUE: Position: The patient was transferred to the IR laboratory and was positioned supine on the procedural table. The right side of the neck was prepped and draped using maximum sterile barrier technique. This consisted of cap, mask, hand hygiene, sterile gown and gloves, 2% Chlorhexidine solution for cutaneous antisepsis and occlusive sterile draping of the field. Procedure: The patient was placed supine on the angio table. The right side of the neck was prepped and draped sterilely. Using direct ultrasound guidance access was gained into the right internal jugular vein. The wire was advanced into the inferior vena cava. After serial dilations, a Cook filter retrieval system was advanced into the IVC. It was advanced over the wire into the inferior vena cava. An inferior venacavogram was performed using carbon dioxide in light of the patient's renal insufficiency. The apex of the filter was then snared and the filter was retrieved and removed intact. Access was then removed and hemostasis achieved by application of manual pressure. The patient tolerated the procedure well. Findings: The Jessica filter is in proper position within the infrarenal IVC. There is no evidence of thrombus within the filter on the initial inferior venacavogram. TECHNIQUE: Position: The patient was transferred to the IR laboratory and was positioned supine on the procedural table. The right side of the neck was prepped and draped using maximum sterile barrier technique. This consisted of cap, mask, hand hygiene, sterile gown and gloves, 2% Chlorhexidine solution for cutaneous antisepsis and occlusive sterile draping of the field. Procedure: The patient was placed supine on the angio table. The right side of the neck was prepped and draped sterilely. Using direct ultrasound guidance access was gained into the right internal jugular vein. The wire was advanced into the inferior vena cava. After serial dilations, a Cook filter retrieval system was advanced into the IVC. It was advanced over the wire into the inferior vena cava. An inferior venacavogram was performed. The filter was then retrieved and removed. Subsequently, a post retrieval inferior venacavogram was performed. Access was then removed and hemostasis achieved by application of manual pressure. The patient tolerated the procedure well. Findings: The Jessica filter is in proper position within the infrarenal IVC. There is no evidence of thrombus within the filter on the initial inferior venacavogram. After removal of the filter the filter was examined and appeared to be intact on the table. Impression: Successful removal of a Mccone inferior vena cava filter. I was in the room and personally performed the entire procedure myself. Most Recent Value Fluoro time: 2.6 minutes Rad Dose: 137 mGy IR Meds Event Details User 11:17 AM 07/25/18 Timeout: Sign-in Verified by Margot Nice RN at 07/25/2018 11:30 AM NL 11:23 AM 07/25/18 fentaNYL (SUBLIMAZE) injection 300 mcg 50 mcg Given Rate: 0 Route: Intravenous NL 11:23 AM 07/25/18 midazolam (VERSED) injection 10 mg 1 mg Given Rate: 0 Route: Intravenous NL 11:42 AM 07/25/18 fentaNYL (SUBLIMAZE) injection 300 mcg 50 mcg Given Rate: 0 Route: Intravenous NL 11:42 AM 07/25/18 midazolam (VERSED) injection 10 mg 1 mg Given Rate: 0 Route: Intravenous NL 11:46 AM 07/25/18 Timeout: TimeOut Verified by Margot Nice RN at 07/25/2018 11:46 AM NL 11:59 AM 07/25/18 Timeout: Sign-out Verified by Margot Nice RN at 07/25/2018 11:59 AM NL 12:05 PM 07/25/18 lidocaine (PF) 2 % injection 2 mL Given Rate: 0 Route: Other HK IR Physician Event Details User 11:17 AM 07/25/18 Timeout: Sign-in Verified by Margot Nice RN at 07/25/2018 11:30 AM NL 11:46 AM 07/25/18 Timeout: TimeOut Verified by Margot Nice RN at 07/25/2018 11:46 AM NL 11:59 AM 07/25/18 Timeout: Sign-out Verified by Margot Nice RN at 07/25/2018 11:59 AM NL INTRAVASCULAR ULTRASOUND, Observed: 07/31/2018 Status: F Source: [facility] INITIAL VESSEL 10:[address] [facility] REPOSITORY EXAM: IR VENA CAVA FILTER REMOVAL, 07/25/2018 12:21 PM CLINICAL INDICATIONS: Z95.828:Presence of IVC filter Z01.818:Pre-procedural examination MEDICATIONS: 11:23 AM 07/25/18 fentaNYL (SUBLIMAZE) injection 300 mcg 50 mcg Route: Intravenous; 11:23 AM 07/25/18 midazolam (VERSED) injection 10 mg 1 mg Route: Intravenous; 11:42 AM 07/25/18 fentaNYL (SUBLIMAZE) injection 300 mcg 50 mcg Route: Intravenous; 11:42 AM 07/25/18 midazolam (VERSED) injection 10 mg 1 mg Route: Intravenous; 12:05 PM 07/25/18 lidocaine (PF) 2 % injection 2 mL Route: Other; Total Fluoro Time: 2.6 minutes Operators: Celso Lagunas M.D. Consent: Following discussion of the risks, benefits and alternatives of the procedure, written informed consent was obtained. Moderate Sedation: I performed Moderate Sedation which included the presence of a nurse that assisted in monitoring the patients level of consciousness and physiological status. After administration of sedative medication(s), I spent minutes of continuous bzbu-qf-ovvk time with the patient. COMPARISON: No prior studies available for comparison. TIME OUT: Prior to the procedure a time out was performed in the presence of the patient and all personnel involved in this case. The patient identity, procedure type, procedure side/site, and allergies were verified. ............................................................ TECHNIQUE: Position: The patient was transferred to the IR laboratory and was positioned supine on the procedural table. The right side of the neck was prepped and draped using maximum sterile barrier technique. This consisted of cap, mask, hand hygiene, sterile gown and gloves, 2% Chlorhexidine solution for cutaneous antisepsis and occlusive sterile draping of the field. Procedure: The patient was placed supine on the angio table. The right side of the neck was prepped and draped sterilely. Using direct ultrasound guidance access was gained into the right internal jugular vein. The wire was advanced into the inferior vena cava. After serial dilations, a Inmoo filter retrieval system was advanced into the IVC. It was advanced over the wire into the inferior vena cava. An inferior venacavogram was performed using carbon dioxide in light of the patient's renal insufficiency. The apex of the filter was then snared and the filter was retrieved and removed intact. Access was then removed and hemostasis achieved by application of manual pressure. The patient tolerated the procedure well. Findings: The Mccone filter is in proper position within the infrarenal IVC. There is no evidence of thrombus within the filter on the initial inferior venacavogram. TECHNIQUE: Position: The patient was transferred to the IR laboratory and was positioned supine on the procedural table. The right side of the neck was prepped and draped using maximum sterile barrier technique. This consisted of cap, mask, hand hygiene, sterile gown and gloves, 2% Chlorhexidine solution for cutaneous antisepsis and occlusive sterile draping of the field. Procedure: The patient was placed supine on the angio table. The right side of the neck was prepped and draped sterilely. Using direct ultrasound guidance access was gained into the right internal jugular vein. The wire was advanced into the inferior vena cava. After serial dilations, a Inmoo filter retrieval system was advanced into the IVC. It was advanced over the wire into the inferior vena cava. An inferior venacavogram was performed. The filter was then retrieved and removed. Subsequently, a post retrieval inferior venacavogram was performed. Access was then removed and hemostasis achieved by application of manual pressure. The patient tolerated the procedure well. Findings: The Jessica filter is in proper position within the infrarenal IVC. There is no evidence of thrombus within the filter on the initial inferior venacavogram. After removal of the filter the filter was examined and appeared to be intact on the table. Impression: Successful removal of a Jessica inferior vena cava filter. I was in the room and personally performed the entire procedure myself. Most Recent Value Fluoro time: 2.6 minutes Rad Dose: 137 mGy IR Meds Event Details User 11:17 AM 07/25/18 Timeout: Sign-in Verified by Margot Nice RN at 07/25/2018 11:30 AM NL 11:23 AM 07/25/18 fentaNYL (SUBLIMAZE) injection 300 mcg 50 mcg Given Rate: 0 Route: Intravenous NL 11:23 AM 07/25/18 midazolam (VERSED) injection 10 mg 1 mg Given Rate: 0 Route: Intravenous NL 11:42 AM 07/25/18 fentaNYL (SUBLIMAZE) injection 300 mcg 50 mcg Given Rate: 0 Route: Intravenous NL 11:42 AM 12/21/18 midazolam (VERSED) injection 10 mg 1 mg Given Rate: 0 Route: Intravenous NL 11:46 AM 07/25/18 Timeout: TimeOut Verified by Margot Nice RN at 07/25/2018 11:46 AM NL 11:59 AM 07/25/18 Timeout: Sign-out Verified by Margot Nice RN at 07/25/2018 11:59 AM NL 12:05 PM 07/25/18 lidocaine (PF) 2 % injection 2 mL Given Rate: 0 Route: Other HK IR Physician Event Details User 11:17 AM 07/25/18 Timeout: Sign-in Verified by Margot Nice RN at 07/25/2018 11:30 AM NL 11:46 AM 07/25/18 Timeout: TimeOut Verified by Margot Nice RN at 07/25/2018 11:46 AM NL 11:59 AM 07/25/18 Timeout: Sign-out Verified by Margot Nice RN at 07/25/2018 11:59 AM NL ORTHOPEDIC VISIT Observed: 07/26/2018 Status: F Source: [place] RE[place] 2:04 PM [facility] [address] [place] [address] OFFICE VISIT Date of Service: 07/15/18 MR#: [id number] Acct: [id number] Name: CHECO GRAY Carol Ann Rep #: [id number] : 1945 Provider: Margarita Otto MD Age/Sex: 72/M Location: [facility] Status: Signed Intake Intake Visit Reasons: LOW BACK Is patient in pain?: No Allergies No Known Allergies Allergy (Verified 07/15/18 14:04) Medications Albuterol Inhaler [Ventolin Hfa] 1 - 2 puff INHALATION Q4H PRN PRN 10/20/13 [History Confirmed 02/26/18] Albuterol Aerosols [Ventolin Aerosols] 2.5 mg INHALATION Q6HWA.RT 10/05/16 [History Confirmed 02/26/18] Pramipexole Di-HCl [Mirapex] 1 mg PO QHS 10/05/16 [History Confirmed 02/26/18] Levofloxacin [Levaquin] 750 mg PO DAILY #4 tab 12/30/17 [Rx Confirmed 02/26/18] Rivaroxaban [Xarelto] 20 mg PO DAILY 12/30/17 [History Confirmed 02/26/18] [facility] Medical History Pulmonary embolism (Acute) Social History Smoking Status: Former smoker HPI LOW BACK: Details: CHECO GRAY returns today 3 months s/p revision L3- L4 laminectomy with removal of hardware and extend instrumented fusion of L3-S1 dos 04/25/18. Patient notes that he is improving and having no pain currently. His numbness is improving. He feels his weakness in his thigh is improving as well. He saw Reed Griggs PA-C regarding his right shoulder. He will have his IVC filter removed on 07/25/2018. He denies fevers or chills. He admits to some bending. He denies falls. He feels 100% improved. He is using his bone stimulator. ROS Const Reports system reviewed and no [...] additional complaints, except as docu Musc Reports numbness, Reports muscle weakness Skin/Breast Reports [...] healed Capillary Refill <2sec: Yes Gait: normal gait, other (able to squat and rise) Sensory Exam: no sensory deficits noted DTR's: Rt Patellar: 0, Lt Patellar: 1+, Rt Ankle: 1+, Lt Ankle: 1+ Coordination: tandem gait normal SPINE TESTING CERVICAL THORACIC LUMBAR SLR: Negative Musculoskeletal General: Yes normal gait Thoracic/Lumbar Spine: straight leg raise negative bilaterally, surgical scar(s) present, other (no significant tenderness throughout the lumbar spine) Strength 0=absent - 5=normal R Hip Flexor (L1-3): 5, L Hip Flexor (L1-3): 5, R Quadriceps (L2-4): 5, L Quadriceps (L2-4): 5, R Anterior Tibialis (L4-5): 5, L Anterior Tibialis (L4-5): 5, R Hamstrings (L5-S1): 5, L Hamstrings (L5-S1): 5, GS (S1): 5, L GS (S1): 5, R Peroneals (S1): 5, L Peroneals (S1): 5 Assessment AND Plan Problems 1. S/P spinal fusion Z98.1 Plan Imaging: XR lumbar sine 07/15/2018 reveals stable instrumentation I/R/P: 1. status post revision L3-L4 laminectomy with TLIF with instrumented fusion L3-S1 on 04/25/2018 2. h/o PE on 12/2017 with temporary IVC filter to be removed 3. bilateral feet paresthesias, chronic 4. history of kidney/lung cancer Mr. Gray is doing well postop. Will initiate physical therapy. Prescription provided. He will increase his activities as tolerated. Follow up in 3 months with standing radiographs or sooner if issues arise. Plan of care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 #### NICOTU #### [facility] [address] [place] [address] [address] [place] [address] Observed: 04/16/2018 Status: F Source: [facility] SCREEN: RESP STAPH 9:10 AM [facility] (HIGH RISK SURGERY) [facility] REPOSITORY NARES: POSITIVE Negative This test was [...] by the Clinical Microbiology Laboratory at [facility]. It has not b een cleared or approved by the FDA.The laboratory is regulated under CLIA as qualified to perform high-complexity testing. This test is used for clinical purposes. It should not be regarded as investigational or for research. Performed By: #### SCRSB #### [facility] [address] [place] [address] PT D/C SUMMARY (1) Observed: 04/02/2018 Status: F Source: [place] 3:01 PM [facility] [address] [place], [place] [address] Fax REHABILITATION SERVICES DISCHARGE SUMMARY MR#: [id number] Acct: [id number] Name: CHECO GRAY Rep #: [id number] : 1945 72 From: Carmen Dill MPT Referring Dr.: Margarita Otto MD Status: REG RCR Insurance: MEDICARE PART A B [facility] [id number] HP - PT D/C Summary It has [...] please feel free to call me at [phone]. Thank you for the referral of this patient. Sincerely, Carmen Dill <Electronically signed by Carmen Dill MPT> 04/02/18 1501 CC: Margarita Otto MD; David Chandler MD Signed ORTHOPEDIC VISIT Observed: 04/01/2018 Status: F Source: [facility] RE[place] 9:34 PM [facility] [address] [place] [address] OFFICE VISIT Date of Service: 04/01/18 MR#: [id number] Acct: [id number] Name: CHECO GRAY Rep #: [id number] : 1945 Provider: Margarita Otto MD Age/Sex: 72/M Location: [facility] Status: Signed Intake Intake Visit Reasons: LOW [...] Mannie Minaya. He will need OPAC at [facility] and follow up in [place] for consent for surgery at [facility]. Plan of care discussed. All questions answered. He is in understanding. Coding Level of Care Code Off vis,est,level 4 Diagnoses Lumbar radiculopathy M54.16 04/01/18 0779 <Electronically signed by Margarita Otto MD> Date Margarita Otto MD Cosigner Signature: Date (if applicable) CC: CBC W/DIFF, AUTOMATED Collected: 03/31/2018 Status: F Source: [place] 12:13 PM [facility] [place] TYPE CODE TESTS RESULT OUT OF [...] MORPH LARGE Performed By: #### L100.0100 #### [facility] [address] [place], [address] VITAMIN D,25 HYDROXY Collected: 03/31/2018 Status: F Source: [place] 12:13 PM [facility] [place] TYPE CODE TESTS RESULT OUT OF REFERENCE UNITS RANGE LAB L506.1000 29.95-100.01 ng/mL Low Vitamin D 25.2 25-OH Result Comment: Vitamin D 25(OH) Status Range Deficiency <20 ng/mL (50nmol/L) Insuffciency 20 - 30 ng/mL (50 - 75 nmol/L) Sufficiency 30 - 100 ng/mL (75 - 250 nmol/L) Toxicity >100 ng/mL (>250 nmol/L) Performed By: #### L506.1000, L509.3000 #### [facility] [address] [place], [address] TESTOSTERONE, SERUM TOTAL Collected: 03/31/2018 Status: F Source: [place] 12:13 PM [facility] [place] TYPE CODE TESTS RESULT OUT OF [...] 07/24/2017 Performed By: #### L506.1000, L509.3000 #### [facility] [address] [place], [address] COMPREHENSIVE METABOLIC Collected: 03/31/2018 Status: F Source: [facility] 12:13 PM [facility] TYPE CODE TESTS RESULT OUT OF [...] Performed By: #### L500.4050, L501.1400, L501.9520 #### [facility] [address] [facility] [place], [place], [address] URIC ACID Collected: 03/31/2018 Status: F Source: [place] 12:13 PM [facility] [place] TYPE CODE TESTS RESULT OUT OF RANGE REFERENCE UNITS LAB L501.1400 3.5-7.2 mg/dL High URIC 8.5 Result Comment: The drugs N-Acetylcysteine and Metamizole may falsely depress this assay. Performed By: #### L500.4050, L501.1400, L501.9520 #### [facility] [address] [facility] [place], [place], [address] THYROID STIM HORMONE Collected: 03/31/2018 Status: F Source: [place] (TSH) 12:13 PM [facility] [place] TYPE CODE TESTS RESULT OUT OF RANGE REFERENCE UNITS LAB L501.9520 0.358-3.74 uIU/mL Normal TSH 1.93 Performed By: #### L500.4050, L501.1400, L501.9520 #### [facility] [address] [place], [place], [address] HEPATITIS C ANTIBODIES Collected: 03/31/2018 Status: F Source: [place] 12:13 PM [facility] [place] TYPE CODE TESTS RESULT OUT OF RANGE REFERENCE UNITS LAB L3100.0650 0.0-0.9 s/co ratio Normal HEP C AB 0.1 Result Comment: Negative: < 0.8 Indeterminate: 0.8 - 0.9 Positive: > 0.9 The CDC recommends that a positive HCV antibody result be followed up with a HCV Nucleic Acid Amplification test (479233). Performed at: [facility] [address] [id number] Beam Worker: Caden Flores PhD, Phone: [phone] Performed By: #### L3100.0625 #### [facility] (refer to report for specific site) refer to report for address and phone number ORTHOPEDIC VISIT Observed: 03/08/2018 Status: F Source: [place] RE[place] 2:23 PM [facility] [address] [address] OFFICE VISIT Date of Service: 02/25/18 MR#: [id number] Acct: [id number] Name: CHECO GRAY Rep #: [id number] : 1945 Provider: Margarita Otto MD Age/Sex: 72/M Location: [facility] Status: Signed Intake Intake Visit Reasons: LOW [...] CREATININE FINGERSTICK Collected: 03/03/2018 Status: F Source: [place] 4:13 PM [facility] TYPE CODE TESTS RESULT OUT OF RANGE REFERENCE UNITS LAB L9100.0210 0.70-1.30 mg/dL Normal CREATININE WB 1.3 LAB L9100.0220 >60 mL/min Low EGFR WB 56.0000 Performed By: #### L9100.0200 #### [facility] Point of Care [address] [place] [address] SPINE LUMBAR W/WO Observed: 03/03/2018 Status: F Source: [place] CONTRAST 3:58 PM [facility] Imaging Services [address] [place] [address] Spine Lumbar W/WO Contrast MR#: [id number] Acct: [id number] Name: MARINACHECO Carol Ann Rep #: [id number] : 1945 M 72 From: Juan Alberto Stapleton MD PCP: Ramesh BRUMFIELD,David Huffman Status: REG CLI Study: Spine Lumbar W/WO Contrast Date of Exam: 03/03/18 Exam# [id number] Ordering Dr: Margarita Otto MD STUDY: MRI [...] CC: Margarita Otto MD; David Chandler MD Corn Grower: Signed INITAL EVALUATION (1) Observed: 02/28/2018 Status: F Source: [place] - PT 12:30 PM [facility] Physical [facility] [address] [place] [address]. [address] [place] [address] Fax REHABILITATION SERVICES INITIAL EVALUATION MR#: [id number] Acct: [id number] Name: CHECO GRAY Rep #: [id number] : 1945 72 From: Carmen Dill MPT Referring Dr.: Margarita Otto MD Status: REG RCR Insurance: MEDICARE PART A B [facility] [id number] Patient's Visit Information CHECO GRAY is a [...] 10): 0 Comment: burning pain in foot 2-10/12 - Objective Gait: Walks with decreased stance [...] to be FAXED BACK to us at [phone] for Medicare purposes. Please let me know [...] Status: F Source: [place] VIEWS 10:53 AM [facility] Imaging Services [address] [address] L/S Spine Min 4 Views MR#: [id number] Acct: [id number] Name: CHECO GRAY Rep #: [id number] : 1945 M 72 From: Jaxon James MD PCP: Ramesh BRUMFIELD,David Huffman Status: REG CLI Study: L/S Spine Min 4 Views Date of Exam: 02/25/18 Exam# [id number] Ordering Dr: Margarita Otto MD STUDY: X-RAY [...] CC: Margarita Otto MD; David Chandler MD Corn Grower: Signed 12 LEAD ELECTROCARDIOGRAM Observed: 01/20/2018 Status: F Source: [place] 8:35 AM [facility] Cardiovascular Services [address] [place] [address] 12 Lead EKG 12/30/17 0947 MR#: [id number] Acct: [id number] Name: CHECO GRAY Carol Ann Rep #: [id number] : 1945 71 From: Damon Trevino MD [...] Normal ECG Confirmed by DAMON TREVINO ([id number]), editor index ANDRE MURRAY ([id number]) on 01/13/2018 5:18:50 PM Referred By: LORELEI Confirmed By:DAMON TREVINO 01/13/18 1718 Date Damon Trevino MD CC: Ellie Norman MD; David Chandler MD Signed EMERGENCY DEPARTMENT Observed: 12/30/2017 Status: F Source: [place] SUMMARY 6:52 PM [facility] Medical Records Department [address] [place] [address] Emergency Department Summary 12/30/17 0942 MR#: [id number] Acct: [id number] Name: CHECO GRAY Carol Ann Rep #: [id number] : 1945 71 From: Ellie Norman MD [...] of COPD This note was generated with GigaPan dictation software. It may contain incorrect words, [...] problems, contact your Primary Care Provider. Call [employer] [facility] ([phone]) or report to the closest Emergency Room. Call 911 if necessary. 12/30/17 2606 <Electronically signed by Ellie Norman MD> Date Ellie Norman MD Cosigner Signature (If Indicated): Date CC: David Chandler MD DISCHARGE INSTRUCTION Observed: 12/30/2017 Status: F Source: [place] 10:45 AM [facility] [place] [facility] Medical Records Department [address] [place] [address] Discharge Instruction 12/30/17 1044 MR#: [id number] Acct: [id number] Name: CHECO GRAY Rep #: [id number] : 1945 71 From: Ellie Norman MD [...] your Primary Care Provider. Call [facility] ([phone]) or report to the closest Emergency Room. Call 911 if necessary. 12/30/17 1045 <Electronically signed by Ellie Norman MD> Date Ellie Nunzeer Signature (If Indicated): Date CC: David Chandler MD CHEST PA AND LATERAL Observed: 12/30/2017 Status: F Source: [place] 9:41 AM [facility] Imaging Services [address] [place] [address] Chest PA and Lateral MR#: [id number] Acct: [id number] Name: CHECO GRAY Rep #: [id number] : 1945 M 71 From: Samantha Murray MD PCP: David Chandler MD, Chi Status: REG ER Study: Chest PA and Lateral Date of Exam: 12/30/17 Exam# [id number] Ordering Dr: Ellie Norman MD STUDY: X-RAY [...] CC: Ellie Norman MD; David Chandler MD Corn Grower: Signed Observed: 12/30/2017 Status: F Source: [facility] CULTURE, BLOOD (WB) 9:30 AM [facility] [place] BC No growth in 5 days. Performed By: #### M200.1000 #### [facility] [address] [place], [address] CBC W/DIFF, AUTOMATED Collected: 12/30/2017 Status: F Source: [place] 9:25 AM [facility] [place] TYPE CODE TESTS RESULT OUT OF [...] Lymph 0.67 Performed By: #### L100.0100 #### [facility] [place], [address] BASIC METABOLIC Collected: 12/30/2017 Status: F Source: [place] PROFILE (BMP) 9:25 AM [facility] [place] TYPE CODE TESTS RESULT OUT OF [...] GAP 7 Performed By: #### L500.2500 #### [facility] [address] [facility] [place], [place], [address] LACTIC ACID Collected: 12/30/2017 Status: F Source: [place] 9:25 AM [facility] [place] Order Comment: Yes/No query for Sepsis Lactate Rule Y TYPE CODE TESTS RESULT OUT OF RANGE REFERENCE UNITS LAB L503.6005 0.4-2.0 mmol/L Normal LACTIC ACID 1.4 Performed By: #### L503.6005 #### [facility] [address] [place], [address] Observed: 12/30/2017 Status: F Source: [place] CULTURE, BLOOD (WB) 9:25 AM [facility] BC No growth in 5 days. Performed By: #### M200.1000 #### [facility] [address] [place], [address] CBC-COMPLETE BLOOD CNT Collected: 12/11/2017 Status: F Source: [facility] NO DIFF 11:58 AM [facility] [place] TYPE CODE TESTS RESULT OUT OF [...] MPV 10.8 Performed By: #### L100.0500 #### [facility] [address] [place], [address] PROTEIN+CREATININE Collected: Status: F Source: [place] JAIME,URINE 12/04/2017 10:17 AM [facility] [place] TYPE CODE TESTS RESULT OUT OF RANGE REFERENCE UNITS LAB L501.1200 NO RANGE EST. mg/dL Normal UR CREAT 162.00 LAB L501.1930 <11.9 mg/dL High 20.8 PROTEIN,UR.R AN. LAB L501.1940 0-200 mg/g CRE Normal PROT:CRE 128 RATIO Performed By: #### L501.0900 #### [facility] [address] [place], [address] RENAL PROFILE Collected: 12/04/2017 Status: F Source: [place] 10:17 AM [facility] [place] TYPE CODE TESTS RESULT OUT OF [...] CO2 24.0 Performed By: #### L500.3600 #### [facility] [address] [place] [address]. [place], [place], [address] PROGRESS Observed: 10/17/2017 Status: COMPLETED Source: [place] 10:22 AM [facility] REPOSITORY HNO ID: [id number] Author: Elena Walton Ny Service: (none) Author Type: (none) Type: Progress [...] W IVCON Observed: 10/17/2017 Status: F Source: [place] 9:53 AM [facility] REPOSITORY * * *Final Report* * * DATE OF EXAM: Oct 17 2017 9:53AM [facility] 0530 - CT ABD/PEL W IVCON / [...] LEFT LOWER RENAL POLE PROBABLE HYPERDENSE CYST Corn Grower: ROBERTO Transcribe Date/Time: Oct 17 2017 1:41P Dictated by : ROSA ISELA SWEET MD This examination was interpreted and the report reviewed and electronically signed by: ROSA ISELA SWEET MD on Oct 17 2017 1:48PM EST [id number] Observed: 10/16/2017 Status: F Source: [place] RESPIRATORY PANEL 1:55 PM [facility] Results called on 10/17/17-1025 by JUAN CARLOS to /NURSE LINE [phone]. RP PANEL Normal Reference Range = Not Detected Copy of report sent to Infection Control Printer [id number] 10/17/17 1027 MICHAELANNON. ADENOVIRUS Not Detected HUMAN METAPHNEUMO Not Detected [...] 1: RHINOVIRUS Performed By: #### M100.638 #### [facility] [place], [address] PROGRESS Observed: 10/16/2017 Status: COMPLETED Source: [place] 9:36 AM [facility] REPOSITORY HNO ID: [id number] Author: Xuan Brito) Geno Service: (none) Author Type: Nurse Practitioner Type: Progress Notes Filed: 10/17/2017 12:31 PM Note Text: Chief Complaint Patient presents with: Established Patient HPI: Checo Gray is a 71 year old male who presents here today for follow up lung cancer. Per Dr. 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 Hernandez), superficial [...] was referred to a thoracic surgeon at [facility]. He ultimately underwent a?right thoracotomy with right [...] Noble who agrees with treatment plan. Xuan Lora CNP CNOVSP Observed: 10/16/2017 Status: COMPLETED Source: [place] 9:30 AM [facility] REPOSITORY Visit (SP) Office (HEMPK) CHECO GRAY ([id number]) 1945 M Date Time Provider Department 10/16/17 9:30 AM XUAN LORA (CHRISTIANO) RAFAELA During your visit today, we recorded the following information about you: Temperature Pulse Blood pressure Weight 97.4 degrees 72/minute 127/81 100.9 kg Charmainedesmond Munguia MICHELLE 10/16/2017 9:36 AM Signed Est patient. Six month ov. Discuss recent labs and CT scan. Charmaine Munguia MICHELLE Lora CNP 10/17/2017 12:31 PM Signed Chief Complaint Patient presents with: Established Patient HPI: Checo Gray is a 71 year old male who presents here today for follow up lung cancer. Per Dr. 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 Hernandez), superficial [...] was referred to a thoracic surgeon at [facility]. He ultimately underwent a?right thoracotomy with right [...] who agrees with treatment plan. Xuan Lora, OPTOMETRIC TECHNOLOGIST Referring Provider: DAVE NOBLE [[id number]] Allergies As of Date: 10/16/2017 (No Known Allergies) Date Reviewed: 10/16/2017 Reviewed by: Elena Walton Ct - Fully Assessed Reason for Visit: Established Patient [175] Primary Visit Diagnosis: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) [C34.11] Other Visit Diagnoses:Thrombus [I82.90] Other acute pulmonary embolism without acute cor pulmonale (HCC) [I26.99] Order(s):CT ABD/PEL W IVCON [[id number]] Order #: [id number] FUTURE iv contrast (radiology procedure)CT Chest ABD/PEL-Inject, [...] US LEG VEIN DVT [facility] [[id number]] Order #: [id number] FUTURE US DVT UPPER BILAT [[id number]] Order #: [id number] FUTURE CT CHEST W IVCON [[id number]] Order #: [id number] FUTURE iv contrast (radiology procedure)CT Chest ABD/PEL-Inject, [...] US ARM VEIN DVT [facility] [[id number]] Order #: [id number] FUTURE Follow-up and Disposition History Recorded Prescriptions [...] 10/16/2017 9:10 AM >> CHARMAINE MUNGUIA LPN Oct 16, 2017 9:10 AM Has not started this dose yet. SIMVASTATIN 20 MG TABLET >> Charmaine Munguia LPN 10/16/2017 9:10 AM >> CHARMAINE MUNGUIA LPN SatOct 16, 2017 9:10 AM discontinued Problem List As Of Date 10/16/2017 Noted Resolved 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) [C34.1*INVALID FOR* Skin cancer [C44.90] Visit Notes: >Anna Munguia LPN SatOct 16, 2017 9:10 AM Status: Signed Est patient. Six month ov. Discuss recent labs and CT scan. Charmaine Munguia LPN Encounter Status:Closed by XUAN LORA CNP on 10/17/17 PROGRESS Observed: 10/14/2017 Status: COMPLETED Source: [place] 12:09 PM [facility] REPOSITORY O ID: [id number] Author: Elena Walton Ct Service: (none) Author [...] W IVCON Observed: 10/14/2017 Status: F Source: [place] 11:57 AM [facility] REPOSITORY * * *Final Report* * * DATE OF EXAM: Oct 14 2017 11:57AM [facility] 0539 - CT CHEST W IVCON [...] Dave Noble on 10/14/2017 at 12:20 PM. Corn Grower: ROBERTO Transcribe Date/Time: Oct 14 2017 12:11P Dictated by : GONZÁLEZ OTTO MD This examination was interpreted and the report reviewed and electronically signed by: GONZÁLEZ OTTO MD on Oct 14 2017 12:37PM EST [id number] [facility] ISTAT BMP Collected: 10/14/2017 Status: F Source: [place] 9:35 AM [facility] REPOSITORY TYPE CODE TESTS RESULT OUT [...] 09/25/2017 Status: F Source: [place] 10:16 AM [facility] TYPE CODE TESTS RESULT OUT OF [...] M.D. 09/26/17 Performed By: #### L100.0100 #### [facility] [address] [place], [address] TESTOSTERONE, SERUM TOTAL Collected: 09/25/2017 Status: F Source: [place] 10:16 AM [facility] [place] CODE TESTS RESULT OUT OF [...] CHANGED 07/24/2017 Performed By: #### L509.3000 #### [facility] [address] [place], [address] COMPREHENSIVE METABOLIC Collected: 09/25/2017 Status: F Source: [facility] 10:16 AM [facility] [place] CODE TESTS RESULT OUT OF [...] Performed By: #### L500.4050, L501.1400, L501.9520 #### [facility] [address] [place], [place], [address] URIC ACID Collected: 09/25/2017 Status: F Source: [place] 10:16 AM [facility] [place] CODE TESTS RESULT OUT OF RANGE REFERENCE UNITS LAB L501.1400 3.5-7.2 mg/dL High URIC 7.6 Result Comment: The drugs N-Acetylcysteine and Metamizole may falsely depress this assay. Performed By: #### L500.4050, L501.1400, L501.9520 #### [facility] [address] [place], [place], [address] THYROID STIM HORMONE Collected: 09/25/2017 Status: F Source: [place] (TSH) 10:16 AM [facility] [place] TYPE CODE TESTS RESULT OUT OF RANGE REFERENCE UNITS LAB L501.9520 0.358-3.74 uIU/mL Normal TSH 1.96 Performed By: #### L500.4050, L501.1400, L501.9520 #### [facility] [address] [place], [address] ALLERGIES ALLERGIES DATE TYPE / CODE NAME / CODE REACTION SEVERITY SOURCE 07/15/2018 Drug No Known Unknown [facility] Allergy/416 Allergies/Z95871 Hospital 347031(SNOM 0388(RXNORM) Repository ED CT) Drug NO KNOWN [facility] Class/52700 ALLERGIES Main [place] 1003(SNOMED Repository CT) ENCOUNTERS ENCOUNTERS ADMIT/DISCHARGE ACCOUNT NUMBER ADMITTING ENCOUNTER LOCATION SOURCE CLASS 08/25/2018 [id number] Ambulatory [facility] ding:PT Repository 07/25/2018/07/25/20 [id number] FINN LAGUNAS Ambulatory Building:CCT [address] VIRRoom: [facility] Repository 07/15/2018 [id number] Ambulatory [facility] ding:HPRAD Repository 07/15/2018/07/15/20 [id number] Ambulatory BMSBuilding: [place] 18 [facility] Repository 07/08/2018 [id number] Ambulatory Building:CT5 [facility] Repository 07/03/2018 [id number] Ambulatory [facility] ding:HPRAD Repository 07/03/2018/07/03/20 [id number] Ambulatory BMSBuilding: [place] 18 [facility] Repository 06/20/2018 [id number] [facility]ulatory [facility] Repository 06/17/2018/06/19/20 [id number] Ambulatory [address] Repository 06/17/2018 [id number] Ambulatory [facility] ding:HPRAD Repository 06/17/2018/06/17/20 [id number] Ambulatory BMSBuilding: [place] 18 BMS[facility] Repository 06/17/2018/06/23/20 [id number] Ambulatory [address] Repository 06/13/2018 [id number] Ambulatory [facility] ding:US Repository 06/06/2018 [id number] Ambulatory [facility] ding:POLAB3 Repository 05/08/2018 [id number] Ambulatory [facility] ding:LAB.FUT Repository URE 04/25/2018/04/27/20 [id number] [place], Inpatient Building:B[address]E [place] [address] MARGARITA Encounter Room: [place] [address]Bed: A [facility] Repository 04/21/2018/04/21/20 [id number] FINN LAGUNAS Ambulatory Building:[place] [address] [place] VIRRoom: [facility] Repository 04/18/2018/04/24/20 [id number] Ambulatory [address] Repository 04/16/2018 [id number] Ambulatory Building:ERD [facility] Repository 04/16/2018 [id number] Ambulatory Building:ERIC [facility] Repository 04/16/2018 [id number] Ambulatory Building:[facility] Repository 04/16/2018 [id number] Ambulatory Building:[facility] Repository 04/16/2018 [id number] Ambulatory Building:[facility] Repository 04/02/2018/04/02/20 [id number] Ambulatory [address] ding:PT Repository 04/01/2018/04/01/20 [id number] Ambulatory BMSBuilding: [place] 18 [facility] Repository 03/31/2018 [id number] Ambulatory [facility] ding:POLAB3 Repository 03/03/2018 [id number] Ambulatory [facility] ding:MRI Repository 03/03/2018 [id number] Ambulatory Building:[facility] Repository 02/25/2018 [id number] Ambulatory [facility] ding:HPRAD Repository 02/25/2018/02/26/20 [id number] Ambulatory BMSBuilding: [place] 18 [facility] Repository 02/25/2018 [id number] Ambulatory Building:[facility] Repository 12/30/2017/12/31/19 [id number] Emergency [place] [address] ding:ED Repository 12/11/2017 [id number] Ambulatory [facility] ding:POLAB3 Repository 12/04/2017 [id number] Ambulatory [facility] ding:POLAB3 Repository 10/17/2017/10/19/19 [id number] Ambulatory [address] [place] Repository 10/17/2017/10/19/19 [id number] Ambulatory [address] [place] Repository 10/17/2017/10/18/19 [id number] Ambulatory [address] [place] Repository 10/16/2017 [id number] Ambulatory [facility] ding:PSN Repository 10/16/2017/10/17/19 [id number] Ambulatory [address] [place] Repository 10/16/2017/10/17/19 [id number] Ambulatory [address] [place] Repository 10/16/2017/10/19/19 [id number] Ambulatory [address] [place] Repository 10/14/2017/10/19/19 [id number] Ambulatory [address] [place] Repository 10/14/2017 [id number] Ambulatory [facility] [place] Repository 10/14/2017 [id number] Ambulatory [facility] [place] Repository 10/14/2017/10/15/19 [id number] Ambulatory [address] [place] Repository 10/14/2017/10/15/19 [id number] Ambulatory [address] [place] Repository 09/25/2017 [id number] [facility] ding:POLAB3 Repository PAYERS PAYERS ENCOUNTER GUARANTOR PAYER SUBSCRIBER SOURCE 08/25/2018 CHECO Maharaj Primary CHECO N [place] [id number] W Insurance:MEDICARE CLARKDOB: Community [facility]ERO [facility] [id number] [place] Number: Repository 168[address]Cxi: (730) [id number] [phone] (HP) Date:2010-11-03 08/25/2018 Secondary CHECO N [place] [facility] CLARKDOB: Community CARE [id number] [facility] Number: Repository [id number] Date:4465-56-08WI [address]GDRXXXX, [place] [address]XL: 08/25/2018 Tertiary NOT GIVENUNK [place] Insurance:SELF PAY [facility] Number: Effective Repository Date:2018-07-15 07/25/2018 CHECO N Primary CHECO N [facility] CLARKDOB: Insurance:MEDICARE A CORPUS CHRISTIDOB: [place] [id number] W AND [facility] hospital Number: [id number] [facility] [id number] [address] [place], [place] Date:8785-31-14Mkfg [place], [place] Repository [address]Pnt: 330) Name:CARE [id number]: () [id number] () 07/25/2018 Secondary CHECO N [facility] Insurance:[facility] [place] Number: [id number] [facility] [id number] [address] [facility] Date:0720-43-62Hpfk [place] Repository Name:MANAGED CARE [id number]: (HP) 07/15/2018 CHECO N Primary CHECO N [place] [id number] W Insurance:MEDICARE CLARKDOB: Community [facility]JERO [facility] [id number] [place] Number: Repository [address]Vep: 330 [id number] [phone] (HP) Date:2018-07-15 07/15/2018 Secondary CHECO N [place] [facility] CLARKDOB: Community CARE [id number] [id number] Hospital Number: Repository [id number] Date:9627-56-75NK [address]NBPSFUV, [place] [address]ME: 07/15/2018 Tertiary NOT GIVENUNK [place] Insurance:SELF PAY [facility] Number: Effective Repository Date:2018-07-15 07/15/2018 CHECO N Primary CHECO N [place] [id number] W Insurance:MEDICARE CLARKDOB: Community [facility]JERO [facility] [id number] [place] Number: Repository [address]Wlo: 330 [id number] [phone] () Date:2018-06-17 07/15/2018 Secondary CHECO N [place] Insurance:[facility] CLARKDOB: [facility] CARE [id number] Hospital Number: Repository [id number] Date:5705-70-86HT [address]QRHKZHM, [place] [address]ER: 07/15/2018 Tertiary NOT GIVENUNK [place] Insurance:SELF PAY [facility] Number: Effective Repository Date:2018-07-15 07/08/2018 CHECO N Primary CHECO N [facility] CLARKDOB: Insurance:MEDICARE A [facility] [place] [id number] W AND [facility] hospital Number: [id number] [facility] [id number] [address], [place] Date:8825-06-45Mldj [place] Repository [address]Usv: 330) Name:CARE [id number]: () [id number] () 07/08/2018 Secondary CHECO N [facility] Insurance:[facility] Hospital[facility] [place] Number: [id number] [facility] [id number] [address] [facility] Date:3194-22-77Qaib [place] Repository Name:MANAGED CARE [id number]: () 07/03/2018 CHECO N Primary CHECO N [place] [id number] W Insurance:MEDICARE CLARKDOB: [facility] [id number] [place] Number: Repository [address]Iej: 330 [id number] [phone] () Date:2018-07-03 07/03/2018 Secondary CHECO N [place] Insurance:[facility] CLARKDOB: [facility] CARE [id number] Hospital Number: Repository [id number] Date:8701-43-10OL [facility] [place], [place] [address]XJ: 07/03/2018 Tertiary NOT GIVENUNK [place] Insurance:SELF PAY Community [facility] Number: Effective Repository Date:2018-07-03 07/03/2018 CHECO N Primary CHECO N [place] [id number] W Insurance:MEDICARE CLARKDOB: Community [facility]JERO [id number] [place] Number: Repository [address]Dkw: 330 [id number] [phone] (HP) Date:2018-06-17 07/03/2018 Secondary CHECO N [place] Insurance:[facility] CLARKDOB: Community CARE [id number] Hospital Number: Repository [id number] Date:1889-62-04XN [facility] [address]441[place]FPMS, [place] [address]WT: 07/03/2018 Tertiary NOT GIVENUNK [place] Insurance:SELF PAY [facility] Number: Effective Repository Date:2018-07-03 06/17/2018 CHECO N Primary CHECO N [place] [id number] W Insurance:MEDICARE CLARKDOB: Community [facility]JERO [facility] [id number] [place] Number: Repository [address]Xrf: 330 [id number] [phone] () Date:2018-06-17 06/17/2018 Secondary CHECO N [place] Insurance:[facility] CLARKDOB: Community CARE [id number] [id number] Hospital Number: Repository [id number] Date:5524-60-85XZ [facility] [address], [place] [address]VT: 06/17/2018 Tertiary NOT GIVENUNK [place] Insurance:SELF PAY [facility] Number: Effective Repository Date:2018-06-17 06/17/2018 CHECO N Primary CHECO N [place] [id number] W Insurance:MEDICARE CLARKDOB: Community [facility]JERO [facility] [id number] [place] Number: Repository 03[address]Dto: 330 [id number] [phone] (HP) Date:2018-04-28 06/17/2018 Secondary CHECO N [place] Insurance:[facility] HL[facility] CLARKDOB: Community CARE [address] [place] [address] [id number] Hospital Number: Repository [id number] Date:6992-57-26ZS [address] [address]AU: 06/17/2018 Tertiary NOT GIVENUNK [place] Insurance:SELF PAY [facility] Number: Effective Repository Date:2018-06-17 06/13/2018 CHECO N Primary CHECO N [place] [id number] W Insurance:MEDICARE CLARKDOB: Community [facility]JERO [facility] [id number] [place] Number: Repository [address]Xgk: 330 [id number] [phone] (HP) Date:2018-06-11 06/13/2018 Secondary CHECO N [place] Insurance:UNITED TH CLARKDOB: Community CARE [address] [place] [address] [id number] Hospital Number: Repository [id number] Date:2280-88-73OS [id number] [place] [address]QT: 06/13/2018 Tertiary NOT GIVENUNK [place] Insurance:SELF PAY [facility] Number: Effective Repository Date:2018-06-11 06/06/2018 CHECO N Primary CHECO N [place] [id number] W Insurance:MEDICARE CLARKDOB: Community T[facility]JERO [facility] [id number] [place] Number: Repository 29[address]Ueh: 330 [id number] [phone] (HP) Date:2017-12-11 06/06/2018 Secondary CHECO N [place] Insurance:UNITED TH CLARKDOB: Community CARE [address] [place] [address] [id number] Hospital Number: Repository [id number] Date:5245-17-24CS [id number] [place] [address]WH: 06/06/2018 Tertiary NOT GIVENUNK [place] Insurance:SELF PAY [facility] Number: Effective Repository Date:2017-12-11 05/08/2018 CHECO N Primary CHECO N [place] [id number] W Insurance:MEDICARE CLARKDOB: [facility] [id number] [place] Number: Repository 57[address]Zjv: (212) [id number] [phone] () Date:2018-05-08 05/08/2018 Secondary CHECO N [place] [facility] CLARKDOB: [facility] CARE [id number] Hospital Number: Repository [id number] Date:6393-59-99FT [address], [place] [address]RX: 05/08/2018 Tertiary NOT GIVENUNK [place] Insurance:SELF PAY [facility] Number: Effective Repository Date:2018-05-08 04/25/2018 CHECO N Primary CHECO N [facility] CLARKDOB: Insurance:MEDICARE A CLARKDOB: [place] [id number] W AND BPolicy Number: [id number] [facility] [id number] 5 [place], [place] Date:5751-38-90Rakv [place] Repository [address]Sdq: (322) Name:CARE [id number]: () [phone] () 04/25/2018 Secondary CHECO N [facility] CLARKDOB: [place] Number: [id number] [facility] [id number] [address] [facility] Date:8141-57-00Pete [place] Repository Name:MANAGED CARE [id number]: () 04/21/2018 CHECO N Primary CHECO N [facility] CLARKDOB: Insurance:MEDICARE A CLARKDOB: [place] [id number] AND BPolicy Number: [id number] [facility] [id number] [address] [place], [place] Date:8243-53-68Vaxs [place] Repository [address]Aqj: (330) Name:CARE [id number]: (HP) [phone] (HP) 04/21/2018 Secondary CHECO N [facility] Insurance:[facility] HospitalB: University Number: [id number] [facility] [id number] 5 [facility] Date:1000-68-91Vipw [place] Repository Name:MANAGED CARE [id number]: () 04/16/2018 CHECO N Primary CHECO N [facility] CLARKDOB: Insurance:MEDICARE A [facility]: [place] AND BPolicy Number: [id number] [facility] [id number] [address] [place], [place] Date:8694-51-16Dcpj [place] Repository [address]Kzn: (330) Name:CARE [id number]: (HP) [phone] (HP) 04/16/2018 Secondary CHECO N [facility] Insurance:[facility] HospitalB: University Number: [id number] [facility] [id number] 5 [facility] Date:0834-40-20Xlza [place] Repository Name:MANAGED CARE 30077Sio: (HP) 04/16/2018 CHECO N Primary CHECO N [facility] CLARKDOB: Insurance:MEDICARE A [facility]: [place] AND BPolicy Number: [id number] [facility] [id number] 5 [place], [place] Date:7587-56-31Ramn [place] Repository [address]Cdc: (330) Name:CARE [id number]: (HP) [phone] () 04/16/2018 Secondary CHECO N [facility] Insurance:CPolicy MARINADOB: University Number: [id number] [facility] [id number] 5 [facility] Date:2544-24-35Lyqh [place] Repository Name:MANAGED CARE 21122Gwk: (HP) 04/16/2018 CHECO N Primary CHECO N [facility] CLARKDOB: Insurance:MEDICARE A CORPUS CHRISTIDOB: [place] [id number] AND BPolicy Number: [id number] [facility] [id number] [address] [place], [place] Date:7704-48-47Hgvo [place] Repository 20210Fin: (330) Name:CARE [id number]: () [id number] () 04/16/2018 Secondary CHECO N [facility] Insurance:[facility] Hospit[facility]t GRAYDOB: University Number: [id number] [facility] [id number] 5 [facility] Date:9038-14-13Ortp [place] Repository Name:MANAGED CARE [id number]: () 04/16/2018 CHECO N Primary CHECO N [facility] CLARKDOB: Insurance:MEDICARE A MARINADOB: [place] [id number] AND BPolicy Number: [id number] [facility] [id number] [address] [place], [place] Date:4871-50-91Kicj [place] Repository 24876Vdn: (330) Name:CARE [id number]: (HP) [id number] () 04/16/2018 Secondary CHECO N [facility] Insurance:CPolicy MARINADOB: University Number: [id number] [facility] [id number] 5 [facility] Date:2365-83-48Tjfq [place] Repository Name:MANAGED CARE [id number]: () 04/16/2018 CHECO N Primary CHECO N [facility] CLARKDOB: Insurance:MEDICARE A CORPUS CHRISTIDOB: [place] [id number] AND VA hospital Number: [id number] [facility] [id number] [address] [place] [address] Date:3710-27-27Oshj [place] Repository 00[address]Hpl: (145) Name:CARE 34113Nil: () [phone] () 04/16/2018 Secondary CHECO N [facility] Insurance:[facility] CenterD[facility]: [place] Number: [id number] [facility] [id number] 5 [facility] Date:9887-90-64Kxtq [place] Repository Name:MANAGED CARE [id number]: () 04/02/2018 CHECO N Primary CHECO N [place] [id number] W Insurance:MEDICARE CLARKDOB: [facility] TINAJERO PART A [facility] [id number] [place] Number: Repository 424[address]Zaj: (781) [id number] [phone] () Date:2010-11-03 04/02/2018 Secondary CHECO N [place] Insurance:[facility] SHOREDOB: [facility] CARE [id number] Hospital Number: Repository [id number] Date:6238-28-80FD [address]QNOOIPX, [place] [address]TO: 04/02/2018 Tertiary NOT GIVENUNK [place] Insurance:SELF PAY [facility] Number: Effective Repository Date:2018-02-25 04/01/2018 CHECO N Primary CHECO N [place] [id number] W Insurance:MEDICARE CLARKDOB: Community [facility]INAJERO PART [facility] [id number] [place] Number: Repository 68[address]Ybz: 330 [id number] [phone] (HP) Date:2018-02-26 04/01/2018 Secondary CHECO N [place] Insurance:[facility] MED[facility] CENTERDOB: Community CARE [address] [place] [address] [id number] Hospital Number: Repository [id number] Date:7731-77-83BC [facility] 616582EE[place], [place] [address]RZ: 04/01/2018 Tertiary NOT GIVENUNK [place] Insurance:SELF PAY [facility] Number: Effective Repository Date:2018-04-01 03/31/2018 CHECO N Primary CHECO N [place] [id number] W Insurance:MEDICARE CLARKDOB: Community TINAJERO PART [facility] [id number] [place] Number: Repository 458[address]Eos: 330 [id number] [phone] (HP) Date:2018-03-31 03/31/2018 Secondary CHECO N [place] Insurance:[facility] SHOREDOB: Community CARE [id number] Hospital Number: Repository [id number] Date:4231-20-38EU [facility] 343085WMIFWFC, [place] [address]SP: 03/31/2018 Tertiary NOT GIVENUNK [place] Insurance:SELF PAY [facility] Number: Effective Repository Date:2018-03-31 03/03/2018 CHECO N Primary CHECO N [place] [id number] W Insurance:MEDICARE CLARKDOB: Community [facility]INAJERO PART [facility] [id number] [place] Number: Repository 71007Ooe: 330 [id number] [phone] (HP) Date:2018-02-26 03/03/2018 Secondary CHECO N [place] Insurance:[facility] SHOREDOB: Community CARE [address] [place] [address] [id number] Hospital Number: Repository [id number] Date:2483-95-43KJ [facility] 366849MDDVBTA, [place] [address]WW: 03/03/2018 Tertiary NOT GIVENUNK [place] Insurance:SELF PAY Community [facility] Number: Effective Repository Date:2018-02-26 02/25/2018 CHECO N Primary CHECO N [place] [id number] W Insurance:MEDICARE CLARKDOB: Community TINAJERO PART [facility] [id number] [place] Number[place] Repository [id number]: 330 [id number] [phone] (HP) Date:2018-02-25 02/25/2018 Secondary CHECO N [place] Insurance:[facility] HL[facility] CLARKDOB: Community CARE [address] [place] [address] [id number] Hospital Number: Repository [id number] Date:8447-19-62ZG [address] [place] [address]NB: 02/25/2018 Tertiary NOT GIVENUNK [place] Insurance:SELF PAY [facility] Hospital Number: Effective Repository Date:2018-02-25 02/25/2018 CHECO N Primary CHECO N [place] [id number] W Insurance:MEDICARE CLARKDOB: Community TINAJERO PART [facility] [id number] [place] Number[place] Repository 21994Zqn: 330 [id number] [phone] (HP) Date:2018-02-11 02/25/2018 Secondary CHECO N [place] Insurance:[facility] CLARKDOB: Community CARE [address] [place] [address] [id number] Hospital Number: Repository [id number] Date:7954-71-94SS [facility] 828205TQODGQB[address] [place] [address]YW: 02/25/2018 Tertiary NOT GIVENUNK [place] Insurance:SELF PAY [facility] Hospital Number: Effective Repository Date:2018-02-25 12/30/2017 CHECO N Primary CHECO N [place] [id number] W Insurance:MEDICARE CLARKDOB: Community TINAJERO PART A [facility] [id number] [place] Number: Repository 63868Ztn: 330 [id number] [phone] (HP) Date:2017-12-30 12/30/2017 Secondary CHECO N [place] Insurance:[facility] HL[facility] CLARKDOB: Community CARE [id number] [id number] Hospital Number: Repository [id number] Date:5608-39-97GP [facility] 754633OIAQKYY, [place] [address]WN: 12/30/2017 Tertiary NOT GIVENUNK [place] Insurance:SELF PAY [facility] Number: Effective Repository Date:2017-12-30 12/11/2017 CHECO N Primary CHECO N [place] [id number] W Insurance:MEDICARE CLARKDOB: Community TINAJERO PART [facility] [id number] [place] Number: Repository [id number]: 330 [id number] [phone] () Date:2017-12-11 12/11/2017 Secondary CHECO N [place] Insurance:UNITED TH CLARKDOB: Community CARE 54578Dsabuy [id number] Hospital Number: Repository [id number] Date:4706-04-77XY [facility] 186013CWDLHSN, [place] [address]DC: 12/11/2017 Tertiary NOT GIVENUNK [place] Insurance:SELF PAY [facility] Hospital Number: Effective Repository Date:2017-12-11 12/04/2017 CHECO N Primary CHECO N [place] [id number] W Insurance:MEDICARE CLARKDOB: Community TINAJERO PART A [facility] [id number] [facility] [place] Number: Repository [id number]: 330 [id number] [phone] () Date:2017-12-04 12/04/2017 Secondary [place] N [place] Insurance:UNITED TH CLARKDOB: Community CARE [id number] Hospital Number: Repository [id number] Date:[id number] [facility] [id number], [place] [address]XX: 12/04/2017 Tertiary NOT GIVENUNK [place] Insurance:SELF PAY [facility]: Effective Repository Date:2017-12-04 10/16/2017 CHECO N Primary CHECO N [place] [id number] W Insurance:MEDICARE CLARKDOB: Community [facility] [id number] Number: Repository [id number]: 330 [id number] [phone] () Date:2017-10-16 10/16/2017 Secondary CHECO N [place] Insurance:UNITED [facility] CLARKDOB: Community CARE [address] [place] [address] [id number] Hospital Number: Repository [id number] Date:[id number] [facility] [id number], [place] [address]SP: 10/16/2017 Tertiary NOT GIVENUNK [place] Insurance:SELF PAY [facility] Number: Effective Repository Date:2017-10-16 09/25/2017 CHECO N Primary CHECO N [place] [id number] W Insurance:MEDICARE CLARKDOB: Community [facility] [id number] Number[place] Repository [id number]: 330 [id number] [phone] () Date:2017-09-25 09/25/2017 Secondary CHECO N [place] Insurance:UNITED [facility] CLARKDOB: Community CARE [id number] Hospital Number: Repository [id number] Date:[id number] [facility] [id number], [place] [address]PB: 09/25/2017 Tertiary NOT GIVENUNK [place] Insurance:SELF PAY [facility] Number: Effective Repository Date:2017-09-25
== END ==
PROVIDERS: Family Provider Family Medicine Geriatric Medicine; PCP Family Medicine Geriatric Medicine; Referring Provider Orthopaedic Surgery; Visit Provider Orthopaedic Surgery
DX: G89.29 Other chronic pain (principal); M54.9 Dorsalgia, unspecified
CPT/HCPCS: 72100

== ENCOUNTER 2018-09-26 10:30 | Outpatient (RCR) | payer MEDICARE, OTHER, SELFPAY ==
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
--- NOTE | 2018-09-08 17:31 | HP.PTREVAL ---
MARIANGEL Barajas, It has been my pleasure to treat CHECO GRAY over the last 8 visits for S/P L3-S1 PURVIS/FUSION. RIGHT RTC IMPINGMENT.. Please see the progress note below for an update on the physical therapy plan of care! Subjective: PATIENT REPORTS HIS RIGHT SHOULDER, HIS BACK AND HIS GENERAL STRENGTH IS BETER. PATIENT REPORTS HE IS STILL GETTING POPPING IN HIS SHOULDER ESPECIALLY IF HE TURNS OVER. IT IS ALSO STILL HARD TO RAISE. STATES HIS BACK AND GENERAL STRENGTH IS FINE. BACK TO DOING EVERYTHING AROUND HOUSE HE DID BEFORE. EVEN PICKED UP GRAND-DAUGHTER AND SHE WEIGHS ABOUT 30 LBS OR SO. IT IS RAISING HIS ARM OVER HIS HEAD THAT IS THE PROBLEM. DOCTOR SUGGESTED CORTISONE SHOT BUT RELUCTANT DUE TO ONLY HAVING ONE KIDNEY. WOULD LIKE TO CONTINUE ON LAND NOW THAT IT IS STARTING TO FEEL BETTER. Objective/Function: PATIENT IS MAKING GOOD PROGRESS TOWARD ALL GOALS BUT STILL HAS CORE WEAKNESS BUT HIS CHIEF COMPLAINT IS RIGHT SHOULDER PAIN AND DYSFUNCTION. UPON EXAM TODAY: INDEP GAIT INTO PT WITHOUT ANY ASSISTIVE DEVICES BUT WITH DECREASED RASHMI STRIDE LENGTH. Motor deficit: RASHMI LE STRENGTH 5/5 WITH MMT'ING. LEFT UE 5/5 WITH MMT'ING. RIGHT SHOULDER FLEX 3-/5, ABD 3-/5, IR 4/5, ER 4-/5. SHOULDER AROM: FLEX 148 DEG IN SITTING (150 DEG PASSIVE IN SUPINE), ABD 154 DEG. ( FULL PASSIVE SCAPTION IN SUPINE), IR 73 DEG AND ER 76 DEG IN SUPINE WITH SHOULDER ABDUCTED 80 DEG. Dural Signs: POSITIVE RASHMI LE'S. NEGATIVE RASHMI UE'S. Lumbar mvmt loss: flex - MOD TO MONIKA. ext - MONIKA. R SG - MOD. L SG - MOD. CERVICAL MVMT LOSS: FLEX - NIL, PRO - NIL, EXT - MOD, RET - MONIKA, RASHMI ROT - MIN, RASHMI SB - MOD. PATIENT DENIES PAIN WITH LUMBAR OR CERVICAL ROM TESTING ALL PLANES. Core strength: POOR Plan Plan: CONT PT 2-3 TIMES A WEEK X 4-6 WEEKS FOR POSTURAL AND CORE STRENGTHENING, RIGHT SHOULDER US, ROM, STRETCHING, MOBILIZATION AND STRENGTHENING TO HELP MEET SET GOALS. PATIENT IS AGREEABLE. Goals Goal 1:: DECREASE C/O RIGHT SHOULDER PAIN Goal Time Frame: 4-6 Weeks Goal Progress: Progressing Goal 2:: INCREASE FUNCTIONAL ROM OF RIGHT SHOULDER Goal Time Frame: 4-6 Weeks Goal Progress: Progressing Goal 3:: INCREASE FUNCTIONAL STRENGTH OF RIGHT SHOULDER Goal Time Frame: 4-6 Weeks Goal Progress: Progressing Goal 4:: IMPROVE ADL AND WORK FUNCTION Goal Time Frame: 4-6 Weeks Goal Progress: Progressing Goal 5:: INSTRUCT IN PROPHYLAXIS FOR RIGHT SHOULDER AND BACK Goal Time Frame: 4-6 Weeks Goal Progress: Progressing Anticipated Interventions Patient/Client Instruction: Educate patient on: Condition, Plan of Care, Risk Factors, Benefits of Fitness Program For the Purpose of:: To improve self management Therapeutic Exercise to Include: Strength training, Body mechanics, Postural training, Flexibilty training, In an aquatic setting, Active ROM, Dynamic Lumbar Stabilization, Scapular Strength/Stabilization For the Purpose of:: To decrease pain, To increase ROM, To improve muscle performance and motor function, To improve ability to perform ADL's, To improve ability of physical actions for home/community/work/leisure, To improve gait and locomotor functions Please do not hesitate to contact me at [phone] by phone or if you have questions or concerns regarding this new plan of care! Sincerely, Christen Billy, PT, Cert MDT
--- NOTE | 2018-09-26 12:31 | HP.PTDCSUM ---
HP - PT D/C Summary It has been my pleasure to treat CHECO GRAY under orders from MARIANGEL Barajas, for the diagnosis of S/P L3-S1 PURVIS/FUSION. RIGHT RTC IMPINGMENT. for a total of 13 visit(s). Discharge Date: 09/26/18 Please see the following information for a summary of their discharge status. - Subjective Subjective: PATIENT REPORTS HE FEELS READY TO CONTINUE EXERCISING INDEP'LY AT THIS TIME. PATIENT REPORTS HE IS REALLY AMAZED AT HOW GOOD HIS SHOULDER FEELS AND IS DOING NOW - Pain Lumbar Spine Pain Intensity (Out of 10): 0 RIGHT SHOULDER Pain Intensity (Out of 10): Unrated - Overall Improvement % Improvement: 100 - Objective Objective/Function: PATIENT HAS MADE GREAT PROGRESS TOWARD ALL GOALS. UPON EXAM TODAY: INDEP GAIT INTO PT WITHOUT ANY ASSISTIVE DEVICES OR GROSS DEVIATIONS. Motor deficit: RASHMI LE STRENGTH 5/5 WITH MMT'ING. LEFT UE 5/5 WITH MMT'ING. RIGHT SHOULDER FLEX 4/5, ABD 4/5, IR 5/5, ER 4/5. RIGHT SHOULDER AROM IN SITTING NOW IS FULL AND PAINFREE. Lumbar mvmt loss: flex - MOD. ext - MONIKA. R SG - MIN. L SG - MOD. CERVICAL MVMT LOSS: FLEX - NIL, PRO - NIL, EXT - MOD, RET - MONIKA, RASHMI ROT - MIN, RASHMI SB - MIN. PATIENT DENIES PAIN WITH LUMBAR OR CERVICAL ROM TESTING ALL PLANES. POSTURAL AND CORE STRENGTH ARE STILL POOR TO FAIR BUT PATIENT IS TOLERATING EX WELL AND THERE ARE SIGNS OF IMPROVEMENT. - Goals Goal 1:: DECREASE C/O RIGHT SHOULDER PAIN Goal Progress: Goal Met Goal 2:: INCREASE FUNCTIONAL ROM OF RIGHT SHOULDER Goal Progress: Goal Met Goal 3:: INCREASE FUNCTIONAL STRENGTH OF RIGHT SHOULDER Goal Progress: Goal Met Goal 4:: IMPROVE ADL AND WORK FUNCTION Goal Progress: Goal Met Goal 5:: INSTRUCT IN PROPHYLAXIS FOR RIGHT SHOULDER AND BACK Goal Progress: Goal Met - Plan Plan: HOLD US NEXT VISIT. CONTINUE TO ADVANCE HEP AND INSTRUTIONS FOR BACK AND SHOULDER. - D/C Information If there are questions or concerns regarding this patient's physical therapy, please feel free to call me at [phone]. Thank you for the referral of this patient. Sincerely, Christen Billy, PT, Cert MDT
== END 2018-09-26 19:00 | disposition home or self-care (01) ==
LOC: PT 10:30
PROVIDERS: Family Provider Family Medicine Geriatric Medicine; PCP Family Medicine Geriatric Medicine; Referring Provider Orthopaedic Surgery; Visit Provider Physician Assistant
DX: M75.41 Impingement syndrome of right shoulder (principal); Z98.1 Arthrodesis status
CPT/HCPCS: 97035; 97113; 97140; 97163; 97530

== ENCOUNTER → 2018-10-01 15:10 | Outpatient (CLI) | payer MEDICARE, OTHER, SELFPAY ==
[2018-10-01 17:06] LABS: Absolute Neutrophil Count 4.8 X10^3/uL (2.0-7.7); Basophil# 0.03 X10^3/uL; Basophil% 0.5 % (0-1); Eosinophil# 0.18 X10^3/uL; Eosinophils% 2.7 % (0-5); Hematocrit 50.4 % (40-54); Hemoglobin 16.9 g/dl (13.0-16.5); Lymphocyte % 12.2 % (19-41); Mean Corp Hgb Conc 33.5 g/gl (32-36); Mean Corpuscular Hgb 29.2 pg (27.0-32.0); Mean Corpuscular Volume 87.2 fL (80-94); Mean Platelet Vol. 11.1 fl (6.2-12.0); Monocyte# 0.66 X10^3/uL; Neutrophil # 4.83 X10^3/uL (2.7-7.7); Neutrophil % 73.4 % (47-70); Platelet Count 184 K/mm3 (150-450); RBC Distribution Width CV 13.7 % (11.6-14.6); RBC Distribution Width SD 43.4 fl (35.1-43.9); Red Blood Count 5.78 M/mm3 (4.6-6.2); White Blood Count 6.6 K/mm3 (4.4-11.0)
[2018-10-01 17:08] LABS: POSITIVE COUNT NO; POSITIVE DIFFERENTIAL NO; POSITIVE MORPHOLOGY NO
[2018-10-01 17:45] LABS: ALB/GLOB Ratio 0.9 RATIO (0.9-2.4); AST(SGOT) 22 U/L (15-37); Alanine Aminotransfer ALT/SGPT 29 U/L (16-61); Albumin, Serum 3.7 g/dL (3.2-5.0); Alkaline Phosphatase 85 U/L (45-117); Anion Gap 8 (5-15); BUN 21 mg/dL (7-18); BUN/Creat Ratio 12.1 RATIO (10-20); Calcium,Total 8.8 mg/dL (8.5-10.1); Chloride 105 mmol/L (98-107); Creatinine, Serum 1.74 mg/dL (0.70-1.30); EST Glomerular Filtration Rate 41 mL/min (>60); Est Glom Filt Rate - Afr Amer 50 mL/min (>60); Globulin 3.9 g/dL (2.2-4.2); Glucose 67 mg/dL (74-106); Potassium 4.3 mmol/L (3.5-5.1); Protein, Total 7.6 g/dL (6.4-8.2); Sodium Level 140 mmol/L (136-145); Thyroid Stim Hormone (TSH) 2.62 uIU/mL (0.358-3.74); Uric Acid 5.8 mg/dL (3.5-7.2)
[2018-10-01 17:48] LABS: Vitamin D,25 Hydroxy 19.3 ng/mL (29.95-100.01)
== END ==
PROVIDERS: Family Provider Family Medicine Geriatric Medicine; PCP Family Medicine Geriatric Medicine; Visit Provider Family Medicine Geriatric Medicine
DX: E55.9 Vitamin D deficiency, unspecified (principal); R53.83 Other fatigue; M10.9 Gout, unspecified; E23.6 Other disorders of pituitary gland
CPT/HCPCS: 36415; 80053; 82306; 84403; 84443; 84550; 85025

== ENCOUNTER → 2018-10-28 12:40 | Outpatient (CLI) | payer MEDICARE, OTHER, SELFPAY ==
--- NOTE | 2018-10-28 12:41 | RAD_ITS ---
STUDY: X-RAY - LUMBAR SPINE REASON FOR EXAM: Male, 72 years old. Postoperative evaluation. TECHNIQUE: AP and lateral view(s) of the lumbar spine were obtained. COMPARISON: Comparison is made with prior study dated July 15, 2018. FINDINGS: Normal lumbar lordosis. There is a minimal levoscoliosis of the lumbar spine. There is a normal alignment of the vertebrae. Once again, the patient is status post laminectomy and interpedicular screw and johnny fixation at the L3-L4, L4-L5 and L5-S1 levels. There is also evidence of intertransverse body bone grafting. There is multilevel endplate spondylosis of the lumbar vertebrae. There is multi-level degenerative disc disease with multi-level disc space narrowing. Prosthetic disc placement at the L3-L4 level. There is atherosclerotic calcification of the abdominal aorta without a demonstrated aneurysm. RAD/Lumbar Spine 2 or 3 Views IMPRESSION: Degenerative changes of the spine, as detailed above. Status post interpedicular screw and johnny fixation at the L3-L4, L4-L5 and L5-S1 levels. Stable examination. Electronically Signed: López Palafox, at 13:28 EDT , Service support ,
== END ==
PROVIDERS: Family Provider Family Medicine Geriatric Medicine; PCP Family Medicine Geriatric Medicine; Referring Provider Orthopaedic Surgery; Visit Provider Orthopaedic Surgery
DX: Z98.1 Arthrodesis status (principal)
CPT/HCPCS: 72100

== ENCOUNTER → 2018-12-17 10:17 | Outpatient (CLI) | payer MEDICARE, OTHER, SELFPAY | PROVIDERS: Family Provider Family Medicine Geriatric Medicine; PCP Family Medicine Geriatric Medicine; Referring Provider Family Medicine Geriatric Medicine; Visit Provider Family Medicine Geriatric Medicine | DX: R68.83 Chills (without fever) (principal) | CPT/HCPCS: 87633 ==

== ENCOUNTER → 2019-02-18 11:08 | Outpatient (CLI) | payer MEDICARE, OTHER, SELFPAY ==
[2019-02-18 12:25] LABS: ALB/GLOB Ratio 0.9 RATIO (0.9-2.4); AST(SGOT) 39 U/L (15-37); Alanine Aminotransfer ALT/SGPT 105 U/L (16-61); Albumin, Serum 3.6 g/dL (3.2-5.0); Alkaline Phosphatase 157 U/L (45-117); Anion Gap 7 (5-15); BUN 26 mg/dL (7-18); BUN/Creat Ratio 15.4 RATIO (10-20); Calcium,Total 8.9 mg/dL (8.5-10.1); Chloride 104 mmol/L (98-107); Creatinine, Serum 1.69 mg/dL (0.70-1.30); EST Glomerular Filtration Rate 43 mL/min (>60); Est Glom Filt Rate - Afr Amer 51 mL/min (>60); Glucose 84 mg/dL (74-106); Potassium 4.6 mmol/L (3.5-5.1); Protein, Total 7.6 g/dL (6.4-8.2); Sodium Level 138 mmol/L (136-145); Thyroid Stim Hormone (TSH) 1.58 uIU/mL (0.358-3.74)
[2019-02-18 12:36] LABS: Absolute Lymphocyte Count 0.93 X10^3/uL (0.83-4.51); Absolute Neutrophil Count 4.2 X10^3/uL (2.0-7.7); Basophil# 0.06 X10^3/uL; Eosinophil# 0.21 X10^3/uL; Eosinophils% 3.5 % (0-5); Hematocrit 50.2 % (40-54); Lymphocyte # 0.93 X10^3/ul (4.0); Lymphocyte % 15.7 % (19-41); Mean Corp Hgb Conc 33.9 g/dL (32-36); Mean Corpuscular Hgb 29.6 pg (27.0-32.0); Mean Corpuscular Volume 87.3 fL (80-94); Mean Platelet Vol. 10.7 fl (6.2-12.0); Monocyte# 0.46 X10^3/uL; Monocyte% 7.7 % (0-10); NRBC Flagged by Analyzer 0 % (0-5); Neutrophil # 4.22 X10^3/uL (2.7-7.7); Neutrophil % 71.1 % (47-70); Platelet Count 184 K/mm3 (150-450); RBC Distribution Width CV 12.6 % (11.6-14.6); RBC Distribution Width SD 39.8 fl (35.1-43.9); Red Blood Count 5.75 M/mm3 (4.6-6.2); White Blood Count 5.9 K/mm3 (4.4-11.0)
== END ==
PROVIDERS: Family Provider Family Medicine Geriatric Medicine; PCP Family Medicine Geriatric Medicine; Visit Provider Family Medicine Geriatric Medicine
DX: R53.83 Other fatigue (principal)
CPT/HCPCS: 36415; 80053; 84443; 85025

== ENCOUNTER → 2019-03-03 14:32 | Outpatient (CLI) | payer MEDICARE, OTHER, SELFPAY ==
[2019-03-03 16:05] LABS: Basophil# 0.04 X10^3/uL; Basophil% 0.6 % (0-1); Eosinophil# 0.16 X10^3/uL; Eosinophils% 2.3 % (0-5); Hematocrit 43.7 % (40-54); Hemoglobin 15.2 g/dL (13.0-16.5); Lymphocyte % 14.5 % (19-41); Mean Corp Hgb Conc 34.8 g/dL (32-36); Mean Corpuscular Hgb 30.7 pg (27.0-32.0); Mean Corpuscular Volume 88.3 fL (80-94); Monocyte% 8.7 % (0-10); NRBC Flagged by Analyzer 0 % (0-5); Neutrophil # 5.02 X10^3/uL (2.7-7.7); Neutrophil % 72.9 % (47-70); Platelet Count 163 K/mm3 (150-450); RBC Distribution Width CV 13.2 % (11.6-14.6); RBC Distribution Width SD 42.1 fl (35.1-43.9); Red Blood Count 4.95 M/mm3 (4.6-6.2); White Blood Count 6.9 K/mm3 (4.4-11.0)
[2019-03-03 16:27] LABS: Anion Gap 8 (5-15); BUN 20 mg/dL (7-18); BUN/Creat Ratio 10.4 RATIO (10-20); Calcium,Total 8.6 mg/dL (8.5-10.1); Chloride 107 mmol/L (98-107); Creatinine, Serum 1.92 mg/dL (0.70-1.30); EST Glomerular Filtration Rate 37 mL/min (>60); Est Glom Filt Rate - Afr Amer 44 mL/min (>60); Glucose 81 mg/dL (74-106); Potassium 4.1 mmol/L (3.5-5.1); Sodium Level 140 mmol/L (136-145)
[2019-03-03 16:47] LABS: D-Dimer Quantitative (DVT/PE) 0.36 FEU/ug/m (0.27-0.49)
== END ==
PROVIDERS: Family Provider Family Medicine Geriatric Medicine; PCP Family Medicine Geriatric Medicine; Visit Provider Family Medicine Geriatric Medicine
DX: R06.02 Shortness of breath (principal)
CPT/HCPCS: 36415; 80048; 83880; 85025; 85379

== ENCOUNTER → 2019-04-02 09:06 | Outpatient (CLI) | payer MEDICARE, OTHER, SELFPAY ==
[2019-04-02 17:11] LABS: Absolute Lymphocyte Count 0.81 X10^3/uL (0.83-4.51); Absolute Neutrophil Count 3.8 X10^3/uL (2.0-7.7); Basophil# 0.05 X10^3/uL; Basophil% 0.9 % (0-1); Eosinophil# 0.17 X10^3/uL; Eosinophils% 3.2 % (0-5); Hematocrit 45.5 % (40-54); Hemoglobin 15.3 g/dL (13.0-16.5); Lymphocyte # 0.81 X10^3/ul (4.0); Lymphocyte % 15.1 % (19-41); Mean Corp Hgb Conc 33.6 g/dL (32-36); Mean Corpuscular Hgb 30.1 pg (27.0-32.0); Mean Corpuscular Volume 89.6 fL (80-94); Mean Platelet Vol. 11.3 fl (6.2-12.0); Monocyte# 0.46 X10^3/uL; Monocyte% 8.6 % (0-10); NRBC Flagged by Analyzer 0 % (0-5); Neutrophil # 3.84 X10^3/uL (2.7-7.7); Neutrophil % 71.5 % (47-70); Platelet Count 189 K/mm3 (150-450); RBC Distribution Width CV 13.2 % (11.6-14.6); RBC Distribution Width SD 42.8 fl (35.1-43.9); Red Blood Count 5.08 M/mm3 (4.6-6.2); White Blood Count 5.4 K/mm3 (4.4-11.0)
[2019-04-02 18:10] LABS: ALB/GLOB Ratio 0.9 RATIO (0.9-2.4); AST(SGOT) 44 U/L (15-37); Alanine Aminotransfer ALT/SGPT 86 U/L (16-61); Albumin, Serum 3.7 g/dL (3.2-5.0); Alkaline Phosphatase 104 U/L (45-117); Anion Gap 9 (5-15); BUN 29 mg/dL (7-18); BUN/Creat Ratio 14.6 RATIO (10-20); Calcium,Total 8.6 mg/dL (8.5-10.1); Chloride 108 mmol/L (98-107); Creatinine, Serum 1.98 mg/dL (0.70-1.30); EST Glomerular Filtration Rate 35 mL/min (>60); Est Glom Filt Rate - Afr Amer 43 mL/min (>60); Globulin 3.9 g/dL (2.2-4.2); Glucose 88 mg/dL (74-106); Phosphorus 2.8 mg/dL (2.5-4.9); Potassium 4.8 mmol/L (3.5-5.1); Protein, Total 7.6 g/dL (6.4-8.2); Sodium Level 140 mmol/L (136-145); Thyroid Stim Hormone (TSH) 3.57 uIU/mL (0.358-3.74); Uric Acid 5.5 mg/dL (3.5-7.2)
[2019-04-03 08:37] LABS: PTHIN 60.7 pg/mL (18.4-80.1)
== END ==
PROVIDERS: Family Provider Family Medicine Geriatric Medicine; PCP Family Medicine Geriatric Medicine; Visit Provider Family Medicine Geriatric Medicine
DX: R53.83 Other fatigue (principal); E23.6 Other disorders of pituitary gland; M10.9 Gout, unspecified
CPT/HCPCS: 36415; 80053; 83970; 84100; 84403; 84443; 84550; 85025

== ENCOUNTER → 2019-04-28 12:32 | Outpatient (CLI) | payer MEDICARE, OTHER, SELFPAY ==
--- NOTE | 2019-04-28 12:34 | RAD_ITS ---
STUDY: X-RAY - LUMBAR SPINE REASON FOR EXAM: Male, 73 years old. Postop follow-up TECHNIQUE: 2 view(s) of the lumbar spine were obtained. COMPARISON: 10/28/2018 FINDINGS: Normal lumbar lordosis. There is a minimal levoscoliosis of the lumbar spine. There is a normal alignment of the vertebrae. Once again, the patient is status post laminectomy and interpedicular screw and johnny fixation at the L3-L4, L4-L5 and L5-S1 levels. There is also evidence of intertransverse body bone grafting. There is multilevel endplate spondylosis of the lumbar vertebrae. There is multi-level degenerative disc disease with multi-level disc space narrowing. Prosthetic disc placement at the L3-L4 level. There is atherosclerotic calcification of the abdominal aorta without a demonstrated aneurysm. RAD/Lumbar Spine 2 or 3 Views IMPRESSION: Stable postoperative changes, no acute findings or significant interval change Electronically Signed: Luís Blank MD at 13:45 EDT , Service support ,
== END ==
PROVIDERS: Family Provider Family Medicine Geriatric Medicine; PCP Family Medicine Geriatric Medicine; Visit Provider Orthopaedic Surgery
DX: Z98.1 Arthrodesis status (principal)
CPT/HCPCS: 72100

== ENCOUNTER → 2019-05-18 13:48 | Outpatient (CLI) | payer MEDICARE, OTHER, SELFPAY ==
[2019-05-18 17:04] LABS: Albumin, Serum 3.8 g/dL (3.2-5.0); BUN 32 mg/dL (7-18); BUN/Creat Ratio 16.7 RATIO (10-20); Calcium,Total 8.4 mg/dL (8.5-10.1); Chloride 108 mmol/L (98-107); Creatinine, Serum 1.92 mg/dL (0.70-1.30); EST Glomerular Filtration Rate 37 mL/min (>60); Est Glom Filt Rate - Afr Amer 44 mL/min (>60); Glucose 130 mg/dL (74-106); Phosphorus 2.9 mg/dL (2.5-4.9); Potassium 4.3 mmol/L (3.5-5.1); Sodium Level 139 mmol/L (136-145)
== END ==
PROVIDERS: Family Provider Family Medicine Geriatric Medicine; PCP Family Medicine Geriatric Medicine; Visit Provider Internal Medicine Nephrology
DX: N18.3 Chronic kidney disease, stage 3 (moderate) (principal)
CPT/HCPCS: 36415; 80069

== ENCOUNTER → 2019-06-30 10:18 | Outpatient (CLI) | payer MEDICARE, OTHER, SELFPAY ==
[2019-06-30 13:15] LABS: PTHIN 56.2 pg/mL (18.4-80.1)
== END ==
PROVIDERS: Family Provider Family Medicine Geriatric Medicine; PCP Family Medicine Geriatric Medicine; Visit Provider Internal Medicine Nephrology
DX: N18.3 Chronic kidney disease, stage 3 (moderate) (principal)
CPT/HCPCS: 36415; 83970

== ENCOUNTER 2019-07-24 08:08 | Day surgery (SDC) | payer MEDICARE, OTHER, SELFPAY ==
--- NOTE | 2019-07-24 | SEP_PTH ---
PATIENT: CHECO GRAY LOC: [facility] U#:[id number] AGE/SX: 73/M ROOM: RE07/24/[address]: Dr. Alfredo Palacios MD : 1945 BED: DIS: 07/24/2019 SPEC #: [id number] RECD: 07/24/19 14:12 STATUS: SMITH REQ #: [id number] FARZANA: 07/24/19 00:[address]: Alfredo Palacios DEPT: SURGICAL PATHOLOGY RECD BY: Mayito Brown ENTERED: 07/24/19 14:12 SP TYPE: SEPTUM OTHR DR: Dr. David Chandler MD Tissues: Nasal septum, NOS Procedures: Decalcification bone/plaque Surgery Specimen Level IV HEADER OPERATION: Septoplasty, submucous resection inferior turbinates PRE-OP DIAGNOSIS: Deviated nasal septum, hypertrophy of nasal turbinates TISSUE SUBMITTED: Nasal septum contents MICROSCOPIC DIAGNOSIS Nasal septum, septoplasty: Fragments of hyaline cartilage and bone (clinically deviated septum). Respiratory mucosa and submucosa with minimal chronic inflammation. AM:claudette 07/30/19 MICROSCOPIC DESCRIPTION Slides are reviewed. GROSS DESCRIPTION Received in fixative is one container labeled with the patient's name and designated nasal septum contents. The specimen consists of multiple fragments of bone and cartilage that in aggregate measure 3 x 2.5 x 0.3 cm. Also present in the container are multiple fragments of hemorrhagic soft tissue mixed with fragments of bone measuring in aggregate 5 x 3 x 0.3 cm. The entire specimen is submitted in three cassettes after decalcification. / ARLEY:claudette 07/24/19 TC:3 CPT: 62588, 62882
--- NOTE | 2019-07-24 08:12 | EKG12_ITS ---
Test Reason : PREOP Blood Pressure : / mmHG Vent. Rate : 068 BPM Atrial Rate : 068 BPM P-R Int : 174 ms QRS Dur : 080 ms QT Int : 424 ms P-R-T Axes : 054 -08 017 degrees QTc Int : 450 ms Normal sinus rhythm Normal ECG When compared with ECG of 30-DEC-2017 09:47, No significant change was found Confirmed by LOLY BRUMFIELD, AGUILAR ([id number]), assignment desk editor SERENITY TELLEZ ([id number]) on 07/28/2019 9:56:56 AM Referred By: Alfredo Palacios Confirmed By:AGUILAR SALCIDO MD
[2019-07-24 08:30] VITALS: BP 156/88; PULSE 72; RESP 15; TEMP 36.5; O2SAT 99; BMI 29.5
[2019-07-24] MEDS: Lactated Ringers 1,000 ML 100 ML IV (08:40)
[2019-07-24 08:42] LABS: Anion Gap 5 (5-15); BUN 24 mg/dL (7-18); BUN/Creat Ratio 13.4 RATIO (10-20); Calcium,Total 8.9 mg/dL (8.5-10.1); Chloride 109 mmol/L (98-107); Creatinine, Serum 1.79 mg/dL (0.70-1.30); EST Glomerular Filtration Rate 40 mL/min (>60); Est Glom Filt Rate - Afr Amer 48 mL/min (>60); Estimated Creatinine Clearance 43.93 ml/min; Glucose 92 mg/dL (74-106); Sodium Level 141 mmol/L (136-145)
[2019-07-24] MEDS: Lidocaine 4% 50 ML Bottle (11:00)
[2019-07-24] MEDS: Oxymetazoline 0.05% 1 SPRAY SPRAY.BTL 15 SPRAY (11:00)
[2019-07-24] MEDS: Bacitracin 500 UNITS/GM PACKET (11:00)
--- NOTE | 2019-07-24 11:38 | OP.PCM_ITS ---
Problem List (1) Deviated nasal septum Status: Chronic (2) Hypertrophy of nasal turbinates Status: Chronic Report of Operation Date of Procedure: 07/24/19 Pre-Operative Diagnosis: Deviated nasal septum, hypertrophy of inferior nasal turbinates Post-Operative Diagnosis: Same Surgery/Procedure Performed:: Septoplasty, submucous resection of inferior nasal turbinates Description of Surgical Findings:: Cale is a 73-year-old male with complains of chronic nasal obstruction failing relief with appropriate medical therapy. Clinical examination showed deviation of nasal septum and hypertrophy of the inferior turbinates and the above procedure was offered in hopes of improvement of these complaints. The risks, alternatives, potential complications, and benefits were discussed at length and any questions answered to the patient and/or caregiver's satisfaction. Witnessed informed consent was obtained in the office, and the patient and/or ca regiver was agreeable to proceed. Procedure went as follows: The patient was identified in the preoperative holding and brought to the operating room, was placed under general anesthesia and intubated. When appropriate anesthesia was obtained, pledgets soaked in a 50-50 mixture of oxymetazoline and 4% topical lidocaine were placed to decongest the nasal mucosa. The nasal septum was then injected beginning on the left side with 1% lidocaine with 100,000 epinephrine for a total of 5 mL. The pledgets were then removed and the left nasal cavity examined. There was noted to be significant nasal septal deviation to the right high in the nasal vault. Using a 15 blade scalpel, a hemitransfixion incision was then made on the left side and using the [place] elevator a subperichondrial/periosteal flap was elevated. The septum was then transected at the bony cartilaginous junction and a similar flap raised on the contralateral side. Using a Sam forceps, the septum was then sharply transected superiorly and the deviated portions removed with a José Antonio forceps. Any inferior bony spur was then removed with a chisel allowing for midline placement of the nasal septum. The hemitransfixion incision was then closed with interrupted 4-0 chromic gut suture followed by a 4-0 plain quilting suture to reapproximate the mucosal flaps. Attention was then turned to the inferior nasal turbinates. Beginning on the left side, the anterior aspect of the inferior turbinate was then injected with 1% lidocaine with 100,000 epinephrine for a total of 2.5 mL bilaterally. Again beginning on the left side a 15 blade scalpel was used to create a stab incision in the anterior aspect of the turbinate. A caudal elevator was then used to elevate a submucosal plane. Using the microdebrider, the anterior bony and intervening submucosal tissue was then removed resulting in reduction of the inferior turbinate. Similar procedure was then completed on the contralateral side. Craig splints were then applied after coating with bacitracin ointment and secured to the columella with a single 3-0 Prolene suture. The patient was then returned to anesthesia, was revived and extubated having tolerated the procedure well without complications. Type of Anesthesia:: General Anesthesiologist: Ralph Shine Special Medications: none Specimen's removed: nasal septal contents Estimated Blood Loss (mL): 50 mL Fluids Replaced: 1200 mL Grafts/Implants Used: Craig splints - Complications none - Admit VTE Documentation VTE Present on Admission: No VTE Mechan Device Prophylaxis: SCD's VTE Pharm Prophylaxis ordered?: No
--- NOTE | 2019-07-24 11:48 | DCINST_ITS ---
- Discharge Diagnoses Current Active Problems: Current Active and Chronic Problems (Last Updated 02/26/18 @ 09:33 by Radha Terrell) Deviated nasal septum (Chronic) Hypertrophy of nasal turbinates (Chronic) You will use the following diet at home:: Regular Discharge Activity: Return to Normal Activity, May not drive while taking narcotic pain medications. Call your doctor if your incision/area has: Sudden Increased Bleeding Call your doctor if you observe: Fever of 101 or Higher, Uncontrolled pain Allergies/Adverse Reactions: Allergies No Known Allergies Allergy (Verified 07/24/19 08:20) Medications to take at Discharge Albuterol Inhaler [Ventolin Hfa] 1 - 2 puff INHALATION Q4H PRN PRN 10/20/13 Pramipexole Di-HCl [Mirapex] 1 mg PO QHS 10/05/16 Febuxostat [Uloric] 40 mg PO DAILY 07/17/19 Pantoprazole Sodium [Protonix] 40 mg PO MOTH 07/17/19 Primary Care Physician: David Chandler Chi, MD [Primary Care Provider] - Test Results: Test results from this visit will be discussed in further detail at your follow- up appointment, if applicable. Please Follow Up With: Alfredo Palacios MD When: 3 days
[2019-07-24 11:51] VITALS: BP 145/98; BP 156/88; PULSE 92; RESP 16; TEMP 36; O2SAT 97
[2019-07-24 12:00] VITALS: BP 136/97; BP 156/88; PULSE 88; RESP 16; O2SAT 96
[2019-07-24 12:15] VITALS: BP 129/86; BP 156/88; PULSE 85; RESP 16; O2SAT 92
[2019-07-24 12:30] VITALS: BP 142/90; BP 156/88; PULSE 80; RESP 16; TEMP 36.1; O2SAT 97
[2019-07-24 13:58] VITALS: BP 156/88; BP 157/104; PULSE 78; RESP 16; TEMP 36.6; O2SAT 94
== END 2019-07-24 14:05 | disposition home or self-care (01) ==
LOC: SDC 08:08 → AC 08:09
PROVIDERS: Family Provider Family Medicine Geriatric Medicine; PCP Family Medicine Geriatric Medicine; Referring Provider Otolaryngology; Visit Provider Otolaryngology
PROC: (CPT 30520; principal; 2019-07-24 09:15)
DX: J34.2 Deviated nasal septum (principal); J34.3 Hypertrophy of nasal turbinates; J34.89 Other specified disorders of nose and nasal sinuses; J44.9 Chronic obstructive pulmonary disease, unspecified; M19.90 Unspecified osteoarthritis, unspecified site; G47.30 Sleep apnea, unspecified; K21.9 Gastro-esophageal reflux disease without esophagitis; Z87.891 Personal history of nicotine dependence; Z85.528 Personal history of other malignant neoplasm of kidney; Z85.51 Personal history of malignant neoplasm of bladder; Z85.118 Personal history of other malignant neoplasm of bronchus and lung; Z86.73 Personal history of transient ischemic attack (TIA), and cerebral infarction without residual deficits
CPT/HCPCS: 30140; 30520; 80048; 88304; 88305; 88311; 93005; J7120; J2405

== ENCOUNTER → 2019-08-25 10:01 | Outpatient (CLI) | payer MEDICARE, OTHER, SELFPAY ==
[2019-08-25 12:51] LABS: Albumin, Serum 3.4 g/dL (3.2-5.0); BUN 20 mg/dL (7-18); BUN/Creat Ratio 10.3 RATIO (10-20); Calcium,Total 8.9 mg/dL (8.5-10.1); Chloride 107 mmol/L (98-107); Creatinine, Serum 1.94 mg/dL (0.70-1.30); EST Glomerular Filtration Rate 36 mL/min (>60); Est Glom Filt Rate - Afr Amer 44 mL/min (>60); Glucose 76 mg/dL (74-106); Phosphorus 2.8 mg/dL (2.5-4.9); Sodium Level 139 mmol/L (136-145)
[2019-08-25 12:58] LABS: Protein, Urine (Random) 16.2 mg/dL (<11.9); Protein:Creat Ratio 95 mg/g CRE (0-200)
== END ==
PROVIDERS: Family Provider Family Medicine Geriatric Medicine; PCP Family Medicine Geriatric Medicine; Visit Provider Internal Medicine Nephrology
DX: N18.3 Chronic kidney disease, stage 3 (moderate) (principal); C64.9 Malignant neoplasm of unspecified kidney, except renal pelvis
CPT/HCPCS: 36415; 80069; 82570; 83970; 84156

== ENCOUNTER → 2019-10-01 14:25 | Outpatient (CLI) | payer MEDICARE, OTHER, SELFPAY ==
--- NOTE | 2019-10-01 14:32 | RAD_ITS ---
STUDY: X-RAY - ABDOMEN/PELVIS REASON FOR EXAM: Male, 73 years old. DIARRHEA, NO PAIN TECHNIQUE: Frontal views of the abdomen COMPARISON: None. FINDINGS: Normal visualized lung bases. There is no intestinal obstruction. There are no suspicious calcifications. Osseous structures are intact with lower lumbar laminectomy decompression and hardware pedicular screw fusion. RAD/Abdomen Single View IMPRESSION: No intestinal obstruction. Unremarkable abdominal radiograph. Electronically Signed: Kristopher Javier, at 15:18 EST Tel , Service support ,
[2019-10-01 16:52] LABS: Absolute Lymphocyte Count 0.87 X10^3/uL (0.83-4.51); Basophil# 0.08 X10^3/uL; Basophil% 1.2 % (0-1); Eosinophil# 0.21 X10^3/uL; Eosinophils% 3.1 % (0-5); Hematocrit 46.7 % (40-54); Hemoglobin 15.8 g/dL (13.0-16.5); Lymphocyte # 0.87 X10^3/ul (4.0); Lymphocyte % 12.7 % (19-41); Mean Corp Hgb Conc 33.8 g/dL (32-36); Mean Corpuscular Hgb 30.5 pg (27.0-32.0); Mean Corpuscular Volume 90.2 fL (80-94); Mean Platelet Vol. 11.2 fl (6.2-12.0); Monocyte# 0.58 X10^3/uL; Monocyte% 8.5 % (0-10); NRBC Flagged by Analyzer 0 % (0-5); Neutrophil # 4.97 X10^3/uL (2.7-7.7); Neutrophil % 72.7 % (47-70); Platelet Count 193 K/mm3 (150-450); RBC Distribution Width CV 12.8 % (11.6-14.6); RBC Distribution Width SD 42.7 fl (35.1-43.9); Red Blood Count 5.18 M/mm3 (4.6-6.2); White Blood Count 6.8 K/mm3 (4.4-11.0)
[2019-10-01 17:16] LABS: Vitamin D,25 Hydroxy 21.8 ng/mL
[2019-10-01 17:26] LABS: AST(SGOT) 19 U/L (15-37); Alanine Aminotransfer ALT/SGPT 26 U/L (16-61); Albumin, Serum 3.6 g/dL (3.2-5.0); Alkaline Phosphatase 82 U/L (45-117); Anion Gap 7 (5-15); BUN 16 mg/dL (7-18); BUN/Creat Ratio 8.8 RATIO (10-20); Calcium,Total 8.5 mg/dL (8.5-10.1); Chloride 105 mmol/L (98-107); Creatinine, Serum 1.81 mg/dL (0.70-1.30); EST Glomerular Filtration Rate 39 mL/min (>60); Est Glom Filt Rate - Afr Amer 47 mL/min (>60); Globulin 3.7 g/dL (2.2-4.2); Glucose 78 mg/dL (74-106); Protein, Total 7.3 g/dL (6.4-8.2); Sodium Level 138 mmol/L (136-145); Thyroid Stim Hormone (TSH) 2.32 uIU/mL (0.358-3.74); Uric Acid 8.7 mg/dL (3.5-7.2)
== END ==
PROVIDERS: PCP Family Medicine Geriatric Medicine; Referring Provider Family Medicine Geriatric Medicine; Visit Provider Family Medicine Geriatric Medicine
DX: R53.83 Other fatigue (principal); E55.9 Vitamin D deficiency, unspecified; M10.9 Gout, unspecified; E23.6 Other disorders of pituitary gland; R19.7 Diarrhea, unspecified
CPT/HCPCS: 74018; 80053; 82306; 84403; 84443; 84550; 85025

== ENCOUNTER → 2020-01-18 14:47 | Outpatient (CLI) | payer MEDICARE, OTHER, SELFPAY ==
[2020-01-18 17:10] LABS: Albumin, Serum 3.5 g/dL (3.2-5.0); BUN 22 mg/dL (7-18); BUN/Creat Ratio 12.4 RATIO (10-20); Calcium,Total 8.9 mg/dL (8.5-10.1); Chloride 105 mmol/L (98-107); Creatinine, Serum 1.78 mg/dL (0.70-1.30); EST Glomerular Filtration Rate 40 mL/min (>60); Est Glom Filt Rate - Afr Amer 48 mL/min (>60); Glucose 136 mg/dL (74-106); Phosphorus 1.8 mg/dL (2.5-4.9); Potassium 3.8 mmol/L (3.5-5.1); Sodium Level 138 mmol/L (136-145)
[2020-01-18 17:19] LABS: Protein, Urine (Random) 21.5 mg/dL (<11.9); Protein:Creat Ratio 74 mg/g CRE (0-200)
== END ==
PROVIDERS: Internal Medicine Nephrology; PCP Family Medicine Geriatric Medicine; Visit Provider Family Medicine Geriatric Medicine
DX: N18.3 Chronic kidney disease, stage 3 (moderate) (principal); C64.9 Malignant neoplasm of unspecified kidney, except renal pelvis
CPT/HCPCS: 36415; 80069; 82570; 84156

== ENCOUNTER → 2020-04-04 16:29 | Outpatient (CLI) | payer MEDICARE, OTHER, SELFPAY ==
[2020-04-04 17:54] LABS: Absolute Lymphocyte Count 0.51 X10^3/uL (0.83-4.51); Absolute Neutrophil Count 4.8 X10^3/uL (2.0-7.7); Basophil# 0.05 X10^3/uL; Basophil% 0.9 % (0-1); Eosinophil# 0.07 X10^3/uL; Eosinophils% 1.2 % (0-5); Hematocrit 45.6 % (40-54); Hemoglobin 15.1 g/dL (13.0-16.5); Lymphocyte # 0.51 X10^3/ul (4.0); Lymphocyte % 8.7 % (19-41); Mean Corp Hgb Conc 33.1 g/dL (32-36); Mean Corpuscular Hgb 30.3 pg (27.0-32.0); Mean Corpuscular Volume 91.6 fL (80-94); Mean Platelet Vol. 10.8 fl (6.2-12.0); Monocyte# 0.38 X10^3/uL; Monocyte% 6.5 % (0-10); NRBC Flagged by Analyzer 0 % (0-5); Neutrophil # 4.77 X10^3/uL (2.7-7.7); Neutrophil % 81.7 % (47-70); POSITIVE DIFFERENTIAL YES; Platelet Count 193 K/mm3 (150-450); RBC Distribution Width CV 12.5 % (11.6-14.6); RBC Distribution Width SD 41.8 fl (35.1-43.9); Red Blood Count 4.98 M/mm3 (4.6-6.2); White Blood Count 5.8 K/mm3 (4.4-11.0)
[2020-04-04 18:01] LABS: AST(SGOT) 19 U/L (15-37); Alanine Aminotransfer ALT/SGPT 27 U/L (16-61); Albumin, Serum 3.5 g/dL (3.2-5.0); Alkaline Phosphatase 77 U/L (45-117); Anion Gap 4 (5-15); BUN 23 mg/dL (7-18); BUN/Creat Ratio 13.3 RATIO (10-20); Calcium,Total 8.4 mg/dL (8.5-10.1); Chloride 108 mmol/L (98-107); Creatinine, Serum 1.73 mg/dL (0.70-1.30); EST Glomerular Filtration Rate 41 mL/min (>60); Est Glom Filt Rate - Afr Amer 50 mL/min (>60); Globulin 3.6 g/dL (2.2-4.2); Glucose 102 mg/dL (74-106); Potassium 3.9 mmol/L (3.5-5.1); Protein, Total 7.1 g/dL (6.4-8.2); Sodium Level 140 mmol/L (136-145); Thyroid Stim Hormone (TSH) 2.84 uIU/mL (0.358-3.74)
[2020-04-04 18:06] LABS: Vitamin D,25 Hydroxy 43.8 ng/mL
[2020-04-04 18:44] LABS: Differential Indicated SCAN CRITERIA MET
[2020-04-04 21:13] LABS: Platelet Estimate ADEQUATE (ADEQ); Red Cell Morphology NORM C+C NORMAL (NORM C&C)
== END ==
PROVIDERS: PCP Family Medicine Geriatric Medicine; Visit Provider Family Medicine Geriatric Medicine
DX: R53.83 Other fatigue (principal); E55.9 Vitamin D deficiency, unspecified; M10.9 Gout, unspecified; E23.6 Other disorders of pituitary gland
CPT/HCPCS: 36415; 80053; 82306; 84403; 84443; 84550; 85025

== ENCOUNTER → 2020-06-08 09:58 | Outpatient (CLI) | payer MEDICARE, OTHER, SELFPAY ==
--- NOTE | 2020-06-08 13:55 | NEURO ---
NCS and/or EMG Patient Report Ordering Doctor: David Chandler Chi DATE OF SERVICE: 06/08/20 Cale Johnson is a 74-year-old male who presents for electrodiagnostic testing of the upper limbs. He reports numbness tingling and weakness in both hands. Letter diagnostic findings median motor nerve demonstrates borderline prolonged distal latency bilaterally with normal amplitude and reduced conduction velocity on the right side. Normal ulnar motor responses noted bilaterally. Borderline prolonged median and ulnar F waves. Median sensory latency at the wrist is prolonged bilaterally. Normal ulnar and radial sensory responses. On needle EMG, all muscles tested in the upper limb showed no evidence of denervation with normal motor unit action potentials. Electrodiagnostic assessment: This is an abnormal study in the upper limbs 1. Electrodiagnostic findings demonstrate bilateral median mononeuropathy. This consistent with a mild bilateral carpal tunnel syndrome.
== END ==
PROVIDERS: PCP Family Medicine Geriatric Medicine; Referring Provider Family Medicine Geriatric Medicine; Visit Provider Family Medicine Geriatric Medicine
DX: G56.13 Other lesions of median nerve, bilateral upper limbs (principal); G56.03 Carpal tunnel syndrome, bilateral upper limbs
CPT/HCPCS: 95886; 95912

== ENCOUNTER → 2020-06-17 09:10 | Outpatient (CLI) | payer MEDICARE, OTHER, SELFPAY | PROVIDERS: PCP Family Medicine Geriatric Medicine; Referring Provider Family Medicine Geriatric Medicine; Visit Provider Family Medicine Geriatric Medicine | DX: R06.89 Other abnormalities of breathing (principal) | CPT/HCPCS: 87633; 87635; C9803; U0003 ==

== ENCOUNTER → 2020-07-13 16:27 | Outpatient (CLI) | payer MEDICARE, OTHER, SELFPAY ==
[2020-07-13 17:01] LABS: Hematocrit 51.1 % (40-54); Hemoglobin 16.7 g/dL (13.0-16.5); Mean Corp Hgb Conc 32.7 g/dL (32-36); Mean Corpuscular Hgb 29.3 pg (27.0-32.0); Mean Corpuscular Volume 89.6 fL (80-94); Mean Platelet Vol. 10.4 fl (6.2-12.0); Platelet Count 197 K/mm3 (150-450); RBC Distribution Width CV 13.2 % (11.6-14.6); RBC Distribution Width SD 43.3 fl (35.1-43.9); White Blood Count 7.7 K/mm3 (4.4-11.0)
[2020-07-13 17:38] LABS: Albumin, Serum 3.7 g/dL (3.2-5.0); BUN 35 mg/dL (7-18); Calcium,Total 8.8 mg/dL (8.5-10.1); Chloride 107 mmol/L (98-107); Creatinine, Serum 1.84 mg/dL (0.70-1.30); EST Glomerular Filtration Rate 38 mL/min (>60); Est Glom Filt Rate - Afr Amer 46 mL/min (>60); Glucose 111 mg/dL (74-106); Phosphorus 3.2 mg/dL (2.5-4.9); Potassium 4.1 mmol/L (3.5-5.1); Sodium Level 139 mmol/L (136-145)
[2020-07-14 08:20] LABS: PTHIN 62.2 pg/mL (18.4-80.1)
== END ==
PROVIDERS: PCP Family Medicine Geriatric Medicine; Visit Provider Internal Medicine Nephrology
DX: N18.30 Chronic kidney disease, stage 3 unspecified (principal)
CPT/HCPCS: 36415; 80069; 83970; 85027

== ENCOUNTER → 2020-08-10 17:21 | Outpatient (CLI) | payer MEDICARE, OTHER, SELFPAY ==
[2020-07-18 08:00] VITALS: BMI 28.1
== END ==
PROVIDERS: PCP Family Medicine Geriatric Medicine; Referring Provider Family Medicine Geriatric Medicine; Visit Provider Family Medicine Geriatric Medicine
DX: R68.83 Chills (without fever) (principal)
CPT/HCPCS: 87633; 87635; C9803; U0005; U0003

== ENCOUNTER 2020-08-16 06:52 | Day surgery (SDC) | payer MEDICARE, OTHER, SELFPAY ==
[2020-07-18 08:00] VITALS: BMI 28.1
[2020-08-16] VITALS (7 sets, daily range): BP systolic 115–124; BP diastolic 81–89; PULSE 58–67; RESP 14–16; TEMP 36.1–36.7; O2SAT 93–96; BMI 27.6
--- NOTE | 2020-08-16 07:18 | HP.PCM_ITS ---
History and Physical Date of Admission: 08/16/20 Intake Vital Signs 07/18/20 Height 6 ft 3 in 07/18/20 Weight: 225 lb Intake Visit Reasons: Bilat wrist Is patient in pain?: Yes Pain scale (1-10): 6 Allergies No Known Allergies Allergy (Verified 07/18/20 08:03) [facility] Medical History (Updated 07/24/19 @ 11:[address] Alfredo Palacios MD) Pulmonary embolism (Acute) Social History (Updated 07/18/20 @ 08:[address] Michele Beaulieu, ) Smoking Status: Former smoker HPI Bilat wrist: Details: Parts of this documentation were recorded by a scribe, this documentation accurately reflects the service provided and the decisions made by me, Dr. Michele Beaulieu, 07/18/20 4216. CHECO GRAY is a 74 year old M here today for bilateral carpal tunnel. He states that he has pain and numbness over his entire palm and fingers. Patients pain is over his thumb and fingers. He notes that he has had these symptoms for over a year. He has had injections which were not helpful. Patient has a compression glove which isnt helpful. He had an EMG which is here for review. He is right hand dominant. He states that he had lung cancer in 2019 and a past cancer took his kidney which left him unable to take any pain medications. He had radiation the entire month of December. He denies any history of cervical spine pain. Patient had leg odessa ropathy due to lumbar issues. ROS Musc Reports joint pain, Reports numbness, Reports tingling Skin/Breast Reports system reviewed and no additional complaints, except as docu Neuro Yes system reviewed and no additional complaints, except as docu, Yes numbness, Yes tingling Ortho Exam General General: Yes no acute distress Neurologic: Yes alert Psychologic: Yes reasonable and appropriate Right Wrist/Hand Skin/Wound: Yes CDI, No Swelling, No Ecchymosis, Yes nail intact, Yes capillary refill normal Right Wrist: Yes Durken's Test, Tinel's and Phalen's; no Thenar Atrophy or Hypothenar Atrophy WRIST: weakness with finger abdution. weakness with research methodologist strength. Left Wrist/Hand Skin/Wound: No Swelling, No Ecchymosis Left Wrist: Yes Durken's Test, Yes Tinel's and Yes Phalen's; no TTP 1st dorsal compartment, no TTP CMC, no Thenar Atrophy or no Hypothenar Atrophy WRIST: weakness with research methodologist strength Supplemental Info 06/08/2020 EMG bilateral upper extremities consistent with mild carpal tunnel bilaterally Assessment & Plan Problems 1. Carpal tunnel syndrome on both sides G56.03 Plan Educated the patient about the anatomy of the upper extremity and etiology of his symptoms. Spoke with him about carpal tunnel syndrome. Explained his options- night splint, steroid injection, occupational therapy, or surgery. He may have a repeat steroid injection to help with diagnostics. Spoke with him about the risks of surgery and anesthesia. Explained the surgery procedure and recovery. He wanted to proceed with surgery at this time. I did recommend patient proceed with conservative bracing and nerve glides first however patient does not feel that he would like to proceed in that regard. He understands that risks of surgery include hypersensitivity over incision pillar pain continued symptoms. Follow up for 2 week post op appointment or sooner if pain, swelling, numbness or associated symptoms, or concerns develop. All questions answered. Patient in agreement of plan. Coding Level of Care Code Off vis,new,level 3 Diagnoses Carpal tunnel syndrome on both sides G56.03 I have re-examined the patient. There are no clinical changes since date of exam Procedure Criteria Procedure Type: Elective COVID Risk Discussion: The surgeon/proceduralist and patient have discussed in detail the risk of exposure to and/or potential harm posed by the COVID-19 virus with having a surgery/procedure at this time versus the risk of delaying the surgery/procedure. It is not possible to know either the risk of delaying the surgery or procedure or chance of getting an infection with perfect accuracy, but a joint decision was made between the patient and the surgeon/proceduralist to proceed at this time with the scheduled surgery/procedure as indicated on the consent form.
[2020-08-16] MEDS: Lactated Ringers 1,000 ML 100 ML IV (07:37)
[2020-08-16] MEDS: Cefazolin 2 GM in 0.9% Normal Saline 100 ML IV (08:19)
[2020-08-16] MEDS: Bupiv/Epi 0.5% Mpf 30 ML Vial (08:40)
--- NOTE | 2020-08-16 08:51 | DCINST_ITS ---
Discharge Diet: No Restrictions Call your doctor if you observe: Shortness of breath, Chest pain Additional Instructions: Ice and elevate operative extremity next 72 hours. Keep dressing on clean and dry for 48 hours then may remove and allow warm soapy water to rinse over incision but do not submerge until sutures are out. Then apply bandaid over incision and change daily. encourage finger range of motion. Not lift more than 1/2 pound. Allergies/Adverse Reactions: Allergies No Known Allergies Allergy (Verified 08/08/20 11:30) Medications to take at Discharge Albuterol Inhaler [Ventolin Hfa] 1 - 2 puff INHALATION Q4H PRN PRN 10/20/13 Pramipexole Di-HCl [Mirapex] 1 mg PO QHS 10/05/16 Febuxostat [Uloric] 40 mg PO DAILY 07/17/19 Pantoprazole Sodium [Protonix] 40 mg PO DAILY 07/17/19 Acetaminophen [Tylenol Tablet] 650 mg PO Q4H PRN PRN tab 07/24/19 Ibuprofen [Motrin] 400 mg PO Q6H PRN PRN tab 07/24/19 Oxycodone [Oxyir] 5 mg PO Q4H PRN PRN #20 tablet 08/16/20 The following prescriptions were given: Oxycodone [Oxyir] 5 mg PO Q4H PRN PRN #20 tablet PRN Reason: Pain Score 6-10 Transmission Status: Sent to [facility] Primary Care Physician: David Chandler Chi, MD [Primary Care Provider] - Test Results: Test results from this visit will be discussed in further detail at your follow- up appointment, if applicable. Please Follow Up With: Michele Beaulieu DO When: 2 weeks
--- NOTE | 2020-08-16 08:52 | PCM.OPRPT ---
Report of Operation Date of Procedure: 08/16/20 Description of Surgical Findings:: Preoperative diagnosis; right carpal tunnel syndrome Postoperative diagnosis; same Procedure: Right open carpal tunnel release Anesthesia: Local with MAC Tourniquet time; [10] minutes 250 mm Hg Complications: None Indication for procedure; This is a 74-year-old male with long-standing symptoms consistent with carpal tunnel syndrome the patient did have electrodiagnostic evidence of this and has failed conservative treatment. Risks benefits and alternatives were reviewed including risks of bleeding infection nerve artery tissue damage need for further surgery and continued pain and symptoms, hypersensitivity to scar and Pillar pain. Procedure; The patient was met in the preoperative holding area the operative extremity was identified by both patient and physician and was marked the patient was met by anesthesia and brought back to the operating room and transferred to the operating table in the supine position. Aanesthesia was started. A well-padded tourniquet was placed on the operative upper extremity. The patient was prepped and draped in the usual sterile fashion. A timeout was called to ensure the proper patient procedure and extremity were being contemplated. 0.5 percent Marcaine with epinephrine was injected into the incisional area. An Esmarch was used to exsanguinate the extremity. The tourniquet was inflated to 250 mmHg. A midline incision was made with a 15 blade scalpel between the thenar and hypothenar eminence. This was carried down through the skin and subcutaneous tissue. Calli retractors were then used, a deep blade scalpel was used to make a deep incision in the palmar aponeurosis. The calli retractors were then placed deep to this and the transverse carpal ligament was identified a perforation was made with a scalpel and a Littler scissors were used to complete the release of the transverse carpal ligament distally under direct visualization with the tips facing ulnarly until the perivascular fat was reached. Then turning our attention proximally using a tension slide technique the proximal extent of the transverse carpal ligament was released . There was noted to be [hourglass configuration to the median nerve and hypertrophy of the transverse carpal ligament flattening of median nerve]. The wound was thoroughly irrigated and was closed with 4-0 nylon vertical mattress stitches. Dressing was applied in the form of xeroform 4 x 4, web roll and an aminta wrap. Tourniquet was let down there is no intraoperative complications patient tolerated the procedure well and was transferred to the PACU. All counts were correct.
== END 2020-08-16 09:40 | disposition home or self-care (01) ==
LOC: SDC 06:53 → AC 06:53
PROVIDERS: PCP Family Medicine Geriatric Medicine; Referring Provider Orthopaedic Surgery; Visit Provider Orthopaedic Surgery
PROC: (CPT 64721; principal; 2020-08-16 08:15)
DX: G56.03 Carpal tunnel syndrome, bilateral upper limbs (principal); Z87.891 Personal history of nicotine dependence
CPT/HCPCS: 64721; 87426; C9803; J7120; J2405

== ENCOUNTER 2020-10-03 16:38 | Outpatient (RCR) | payer MEDICARE, OTHER, SELFPAY ==
[2020-09-29 13:39] VITALS: BMI 28.1
[2020-10-03 16:19] LABS: Absolute Lymphocyte Count 0.69 X10^3/uL (0.83-4.51); Absolute Neutrophil Count 4.5 X10^3/uL (2.0-7.7); Basophil# 0.08 X10^3/uL; Basophil% 1.3 % (0-1); Eosinophil# 0.19 X10^3/uL; Hematocrit 42.6 % (40-54); Hemoglobin 15.5 g/dL (13.0-16.5); Lymphocyte # 0.69 X10^3/ul (4.0); Lymphocyte % 11.1 % (19-41); Mean Corp Hgb Conc 36.4 g/dL (32-36); Mean Corpuscular Hgb 34.8 pg (27.0-32.0); Mean Corpuscular Volume 95.5 fL (80-94); Mean Platelet Vol. 11.4 fl (6.2-12.0); Monocyte# 0.62 X10^3/uL; Monocyte% 9.9 % (0-10); NRBC Flagged by Analyzer 0 % (0-5); Neutrophil % 72.1 % (47-70); Platelet Count 151 K/mm3 (150-450); RBC Distribution Width CV 17.4 % (11.6-14.6); RBC Distribution Width SD 51.2 fl (35.1-43.9); Red Blood Count 4.46 M/mm3 (4.6-6.2); White Blood Count 6.2 K/mm3 (4.4-11.0)
[2020-10-03 16:38] LABS: Vitamin D,25 Hydroxy 26.8 ng/mL
[2020-10-03 16:41] LABS: ALB/GLOB Ratio 0.9 RATIO (0.9-2.4); AST(SGOT) 23 U/L (15-37); Alanine Aminotransfer ALT/SGPT 33 U/L (16-61); Albumin, Serum 3.4 g/dL (3.2-5.0); Alkaline Phosphatase 86 U/L (45-117); Anion Gap 6 (5-15); BUN 19 mg/dL (7-18); BUN/Creat Ratio 10.9 RATIO (10-20); Calcium,Total 8.7 mg/dL (8.5-10.1); Chloride 102 mmol/L (98-107); Creatinine, Serum 1.74 mg/dL (0.70-1.30); EST Glomerular Filtration Rate 41 mL/min (>60); Est Glom Filt Rate - Afr Amer 50 mL/min (>60); Globulin 3.6 g/dL (2.2-4.2); Glucose 72 mg/dL (74-106); Potassium 4.1 mmol/L (3.5-5.1); Sodium Level 139 mmol/L (136-145); Thyroid Stim Hormone (TSH) 2.98 uIU/mL (0.358-3.74); Uric Acid 9.2 mg/dL (3.5-7.2)
== END 2020-10-03 23:59 ==
LOC: IMMUN 16:38
PROVIDERS: PCP Family Medicine Geriatric Medicine; Referring Provider Family Medicine; Visit Provider Family Medicine
DX: Z23 Encounter for immunization (principal); E23.6 Other disorders of pituitary gland; E55.9 Vitamin D deficiency, unspecified; M10.9 Gout, unspecified; R53.83 Other fatigue
CPT/HCPCS: 0011A; 0012A; 80053; 82306; 84403; 84443; 84550; 85025

== ENCOUNTER 2020-11-05 06:55 | Emergency (ER) | payer MEDICARE, OTHER, SELFPAY ==
[2020-09-29 13:39] VITALS: BMI 28.1
[2020-11-05 06:55] VITALS: BP 153/91; PULSE 88; RESP 24; TEMP 36.4; O2SAT 94; BMI 29.2
[2020-11-05 06:58] VITALS: BP 153/91; PULSE 88; RESP 24; TEMP 36.4; O2SAT 94
--- NOTE | 2020-11-05 07:06 | RAD_ITS ---
STUDY: X-RAY CHEST REASON FOR EXAM: Male, 74 years old. Cough, hx of COPD TECHNIQUE: PA and lateral views of the chest. COMPARISON: 12/30/2017 FINDINGS: There are stable areas of hyperinflation predominantly in the upper lung allison, distortion of parenchyma with mild elevation of the right hemidiaphragm in the right mid and lower lung parenchyma. There is no focal parenchymal abnormality. There is no demonstrated pleural abnormality. Normal size heart. Right paratracheal distortion of parenchyma with increased density possible due to calcification or scar formation. Paratracheal lymphadenopathy is not excluded. There is no focal parenchymal abnormality. Normal visualized pulmonary arteries. Normal visualized aortic arch and descending thoracic aorta. There are diffuse degenerative changes of the visualized thoracic spine. Remote posterior right rib deformity. There is no demonstrated abnormality of the visualized soft tissue structures of the upper abdomen. RAD/Chest PA and Lateral IMPRESSION: Stable emphysema, scarring with distortion of parenchyma. No pulmonary edema, congestive heart failure or confluent pneumonia. Density adjacent to the right paratracheal soft tissue, not present on previous examination, possible scar formation/calcification, other etiologies such as mass or lymphadenopathy not excluded. Electronically Signed: Venus Morales MD at 8:11 EDT , Service support ,
--- NOTE | 2020-11-05 07:08 | ED.DCSUM_ITS ---
History of Present Illness Chief Complaint: Cough Informant: Patient Narrative: Patient is a 74-year-old male with a past medical history of lung cancer status post radiation treatment, right nephrectomy for kidney cancer, COPD with a former smoking history who presents to the emergency department for cough. This has been going on for the past 3 weeks but progressively getting worse. It is productive of sputum. He denies any fevers or chills associated with this. He denies any chest pain except whenever he gets in a coughing fit he does have chest wall pain. He denies any leg swelling or calf pain. No known sick contacts. He has not had coronavirus and did get his vaccinations. He denies any ear pain or sore throat. No nausea or vomiting. He denies any diarrhea. No urinary discomfort. He denies any sick exposures. He has been taking prescription cough medication which has not been providing him significant relief. Past Medical History - Allergies and Home Meds Allergies/Adverse Reactions: Allergies No Known Allergies Allergy (Verified 08/08/20 11:30) Primary Care Physician: Pablo Vega DO [STAFF PHYSICIAN] - 3-5 Days David Chandler Chi, MD [Primary Care Provider] - As soon as possible Prior records reviewed: Yes Surgical History: - - Bladder cancer surgery/cauterization/fulguration, R kidney resection, T+A, Laminectomy, Appendecomy. Smoking Status: Former smoker Review of Systems All systems negative except as indicated General: Denies: Chills, Fever, Sweats Eyes: Denies: Visual changes - bilaterally, Diplopia ENT: Denies: Rhinorrhea, Sore throat Cardiovascular: Denies: Chest pain, Palpitations Respiratory: Reports: Cough. Denies: Dyspnea, Dyspnea on exertion Gastrointestinal: Denies: Abdominal pain, Nausea, Vomiting, Diarrhea Genitourinary: Denies: Dysuria, Hematuria, Frequency Musculoskeletal: Denies: Back pain, Extremity Pain Skin: Denies: Rash, Wounds Neurological: Denies: Headache, Weakness, Numbness Physical Exam Vital Signs/Narrative: Vital Signs Temp Pulse Resp BP Pulse Ox 11/05/20 06:58 97.6 F L 88 24 H 153/91 H 94 11/05/20 06:55 97.6 F L 88 24 H 153/91 H 94 Inital Vital Signs reviewed: Yes General: Well nourished, Well developed, No Acute Distress Head: Normocephalic, Atraumatic Eyes: Perrl, EOMI ENT: Moist mucous membranes, No rhinorrhea Neck: Supple, Nontender Cardiovascular: Regular rate, Regular rhythm, No murmurs Respiratory: No distress, CTA bilaterally, Chest nontender, - - Patient coughing throughout exam. Minimal expiratory wheezing Abdomen: Soft, Nontender, Nondistended Back: Nontender, Normal Inspection Extremities: Nontender, No edema. Negative for: Calf Tenderness Skin: Normal color, No rash Neurological: Alert, Oriented x3, Normal Strength Psychological: Normal affect, Normal Mood Diagnostic/Tx/Re-eval Chest X-Ray - ED: 1 View - 2 view x-ray interpreted by myself. Clear lung allison bilaterally. There is a protrusion on the opposite side of the aortic knob that has not been seen on previous imaging. Normal cardiac silhouette. No pleural effusions. Agree with radiologist interpretation. - Medical Decision Making Patient presents to the ED for cough that has been present over the past 3 weeks. He denies any other infectious symptoms associated with this. No chest pain or shortness of breath. Upon arrival to the emergency department satting 94% on room air no acute distress. He is coughing throughout exam. Will check chest x-ray and basic lab work. Patient's lab did not show a high white blood cell count. He is not anemic. His kidney function appears to be at baseline. X-ray was concerning for a mass next to the right side of his trachea and the chest. CT scan was obtained to better evaluate this. This does appear to be an infiltrate on CT scan although mass cannot be ruled out. Follow-up CT imaging recommended once he is treated with antibiotics. We will place him on Augmentin and azithromycin. His cough has been improving with the codeine, steroid and breathing treatment. He does not feel improved at this time. We will write him a prescription for these medications at home. He does have a referral to Dr. 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 He is to call their office on Saturday morning to schedule a follow-up appointment soon as possible. Return precautions are reviewed with him including any developing significant shortness of breath, chest pain or fevers. He understands and is agreeable this plan. Discharged home in stable condition. All questions answered. ED Disposition - Plan for ED Patient: Disposition: Home or Assisted Living Diagnosis: Community acquired pneumonia, Cough Instructions: ED Pneumonia (Adult) Prescriptions: Amox/Clavulanate Tablet [Augmentin Tablet] 875 mg PO Q12H #20 tab Transmission Status: Received by [facility] Prednisone [Deltasone] 40 mg PO DAILY 4 Days #8 tablet Transmission Status: Received by [facility] Hydrocodone Bit/Homatrop Me-Br [Hycodan 5 mg-1.5 mg/5 ml Soln] 5 ml PO Q6H PRN 5 Days #1 bottle PRN Reason: Cough Transmission Status: Received by [facility] Azithromycin [Zithromax Z-Mj] 250 mg PO UD #1 box Transmission Status: Received by [facility] Referrals: David Chandler Chi, MD [Primary Care Provider] - As soon as possible Pablo Vega DO [STAFF PHYSICIAN] - 3-5 Days
[2020-11-05 07:14] LABS: Absolute Lymphocyte Count 0.82 X10^3/uL (0.83-4.51); Absolute Neutrophil Count 3.5 X10^3/uL (2.0-7.7); Basophil# 0.05 X10^3/uL; Eosinophils% 7.6 % (0-5); Hematocrit 46.5 % (40-54); Hemoglobin 15.8 g/dL (13.0-16.5); Lymphocyte # 0.82 X10^3/ul (4.0); Lymphocyte % 15.6 % (19-41); Mean Corpuscular Hgb 31.1 pg (27.0-32.0); Mean Corpuscular Volume 91.5 fL (80-94); Mean Platelet Vol. 10.2 fl (6.2-12.0); Monocyte# 0.49 X10^3/uL; Monocyte% 9.3 % (0-10); NRBC Flagged by Analyzer 0 % (0-5); Neutrophil # 3.45 X10^3/uL (2.7-7.7); Neutrophil % 65.5 % (47-70); Platelet Count 196 K/mm3 (150-450); RBC Distribution Width CV 13.3 % (11.6-14.6); RBC Distribution Width SD 45.6 fl (35.1-43.9); Red Blood Count 5.08 M/mm3 (4.6-6.2); White Blood Count 5.3 K/mm3 (4.4-11.0)
[2020-11-05 07:15] VITALS: O2SAT 96
[2020-11-05] MEDS: Ipratropium/Albuterol Sulfate 3 ML AMPUL.NEB INHALATION (07:22)
[2020-11-05 07:23] VITALS: PULSE 92; RESP 18; O2SAT 95
[2020-11-05 07:27] LABS: Anion Gap 4 (5-15); BUN 26 mg/dL (7-18); BUN/Creat Ratio 13.5 RATIO (10-20); Calcium,Total 8.8 mg/dL (8.5-10.1); Chloride 105 mmol/L (98-107); Creatinine, Serum 1.93 mg/dL (0.70-1.30); EST Glomerular Filtration Rate 36 mL/min (>60); Est Glom Filt Rate - Afr Amer 44 mL/min (>60); Estimated Creatinine Clearance 40.13 ml/min; Glucose 91 mg/dL (74-106); Potassium 4.1 mmol/L (3.5-5.1); Sodium Level 137 mmol/L (136-145)
--- NOTE | 2020-11-05 08:40 | CT_ITS ---
STUDY: CT CHEST WITHOUT CONTRAST REASON FOR EXAM: Male, 74 years old. Abnormal XR, eval paratracheal mass? -- Persistent cough current symptom RADIATION DOSAGE (If Supplied By Facility): CTDIvol = ( 16.63 ) mGy, DLP = ( 606.59 ) mGycm TECHNIQUE: Transaxial imaging was performed without the administration of intravenous contrast material. Individualized dose optimization techniques were used for this CT. COMPARISON: None. FINDINGS: There is hyperinflation of the lungs consistent with chronic obstructive lung disease (COPD). Infiltrate in the medial aspect of the right upper lobe extending to the right hilar region. Linear densities likely representing surgical sutures in the medial aspect of the right upper lobe extending to the right hilar region. 6 mm right upper lobe nodule. There is no demonstrated pleural abnormality. Normal heart and pericardium. Few mediastinal nodes which could be reactive. Left hilum is unremarkable. Normal unenhanced pulmonary arteries. There is atherosclerotic tortuosity of the aortic arch and descending thoracic aorta. Degenerative changes in the thoracic spine and increased kyphosis. No demonstrated acute changes in the visualized upper abdomen. Surgical clips posterior to the liver. CT/Chest without Contrast IMPRESSION: 1. Right upper lobe infiltrate extending to the right hilar region could be due to pneumonia. Underlying tumor however cannot be excluded. Follow-up examination following treatment with contrast is recommended. 2. Postoperative changes in the right upper lobe. 3. COPD changes. Electronically Signed: Kalpesh Matute MD at 9:42 EDT Tel , Service support ,
[2020-11-05] MEDS: MethylPREDNISolone 125 MG/2 ML Vial IV (09:00)
[2020-11-05 10:22] VITALS: BP 131/79; PULSE 84; RESP 22; O2SAT 97
--- NOTE | 2020-11-05 10:25 | ED.RN ---
THIS NURSE REVIEWED D/C INSTRUCTIONS WITH PT. PT VERBALIZED UNDERSTANDING OF INSTRUCTIONS. IV D/C. IV CATHETER INTACT. PT TOLERATED WELL. PT DENIES FURTHER NEEDS OR QUESTIONS AT THIS TIME. PT AMBULATES FROM ROOM ON OWN WITHOUT ASSISTANCE FROM STAFF
== END 2020-11-05 10:25 | disposition home or self-care (01) ==
PROVIDERS: Emergency Provider Emergency Medicine; PCP Family Medicine Geriatric Medicine
DX: J18.9 Pneumonia, unspecified organism (principal); R05 Cough; J44.0 Chronic obstructive pulmonary disease with (acute) lower respiratory infection; Z85.118 Personal history of other malignant neoplasm of bronchus and lung; Z85.51 Personal history of malignant neoplasm of bladder; Z85.528 Personal history of other malignant neoplasm of kidney; Z87.891 Personal history of nicotine dependence; Z90.5 Acquired absence of kidney; Z92.3 Personal history of irradiation
CPT/HCPCS: 71046; 71250; 80048; 85025; 94640; 99283; A4216

== ENCOUNTER → 2020-11-09 15:03 | Outpatient (CLI) | payer MEDICARE, OTHER, SELFPAY ==
[2020-11-05 06:55] VITALS: BMI 29.2
--- NOTE | 2020-11-09 15:10 | RAD_ITS ---
STUDY: X-RAY CHEST REASON FOR EXAM: Male, 74 years old. LEUKOCYTOSIS TECHNIQUE: PA and lateral views of the chest. COMPARISON: 11/05/2020 FINDINGS: There is hyperinflation of the lungs consistent with chronic obstructive lung disease (COPD). Lungs are clear. There is no demonstrated pleural abnormality. Normal size heart. Normal mediastinum and ghulam. Normal visualized pulmonary arteries. Normal visualized aortic arch and descending thoracic aorta. Normal visualized thoracic spine. Normal visualized ribs, clavicles, and shoulders. There is no demonstrated abnormality of the visualized soft tissue structures of the upper abdomen. RAD/Chest PA and Lateral IMPRESSION: COPD. Lungs are clear. Electronically Signed: Gatito Zavala DO at 22:29 EDT Tel , Service support ,
== END ==
PROVIDERS: PCP Family Medicine Geriatric Medicine; Referring Provider Family Medicine Geriatric Medicine; Visit Provider Family Medicine Geriatric Medicine
DX: D72.89 Other specified disorders of white blood cells (principal)
CPT/HCPCS: 71046

== ENCOUNTER → 2020-11-23 07:56 | Outpatient (CLI) | payer MEDICARE, OTHER, SELFPAY ==
[2020-11-11 11:07] VITALS: BMI 29.2
--- NOTE | 2020-11-23 13:45 | PFT ---
INTRODUCTION: The patient is a 74-year-old male that presents for pulmonary function studies secondary to a diagnosis of chronic cough. Respiratory therapy reports good patient effort. Bronchodilators were used during testing. INTERPRETATION: Forced expiration spirometry demonstrates the presence of a mild large airways obstructive ventilatory defect. There was no significant response to aerosolized bronchodilators. Spirograms are of good quality but do not plateau indicating slow emptying of the lungs. Body plethysmography was performed and reveals lung volumes to be within normal limits. Diffusing capacity by single breath CO is also within normal limits at 93% of predicted. IMPRESSION: Irreversible mild large airways obstructive ventilatory defect with preserved lung volumes and diffusing capacity.
== END ==
PROVIDERS: PCP Family Medicine Geriatric Medicine; Referring Provider Internal Medicine Critical Care Medicine; Visit Provider Internal Medicine Critical Care Medicine
DX: R05 Cough (principal)
CPT/HCPCS: 94060; 94726; 94729

== ENCOUNTER → 2021-01-04 08:38 | Outpatient (CLI) | payer MEDICARE, OTHER, SELFPAY ==
[2020-07-18 08:00] VITALS: BMI 28.1
[2020-12-22 07:51] VITALS: BMI 29.2
[2021-01-04 09:47] LABS: PTHIN 79.3 pg/mL (18.4-80.1)
[2021-01-04 09:48] LABS: Albumin, Serum 3.5 g/dL (3.2-5.0); BUN 18 mg/dL (7-18); BUN/Creat Ratio 10.5 RATIO (10-20); Calcium,Total 8.8 mg/dL (8.5-10.1); Chloride 104 mmol/L (98-107); Creatinine, Serum 1.71 mg/dL (0.70-1.30); EST Glomerular Filtration Rate 42 mL/min (>60); Est Glom Filt Rate - Afr Amer 50 mL/min (>60); Glucose 87 mg/dL (74-106); Phosphorus 2.1 mg/dL (2.5-4.9); Potassium 3.9 mmol/L (3.5-5.1); Sodium Level 138 mmol/L (136-145)
[2021-01-04 09:50] LABS: Protein, Urine (Random) 11.8 mg/dL (<11.9); Protein:Creat Ratio 193 mg/g CRE (0-200)
== END ==
PROVIDERS: PCP Family Medicine Geriatric Medicine; Referring Provider Internal Medicine Nephrology; Visit Provider Internal Medicine Nephrology
DX: N18.32 Chronic kidney disease, stage 3b (principal); C64.9 Malignant neoplasm of unspecified kidney, except renal pelvis
CPT/HCPCS: 36415; 80069; 82570; 83970; 84156

== ENCOUNTER → 2021-02-01 10:18 | Outpatient (CLI) | payer MEDICARE, OTHER, SELFPAY ==
[2020-12-22 07:51] VITALS: BMI 29.2
--- NOTE | 2021-02-01 10:22 | RAD_ITS ---
STUDY: X-RAY CHEST REASON FOR EXAM: Male, 75 years old. COVID ?/CHRONIC BRONCHITIS TECHNIQUE: PA and lateral views of the chest. COMPARISON: 11/09/2020 FINDINGS: No change in right upper lobe scarring likely from prior radiation therapy. No alveolar opacity within the lungs to suggest pneumonia or atelectasis. There is no demonstrated pleural abnormality. Normal size heart. Normal mediastinum and ghulam. Normal visualized pulmonary arteries. Normal visualized aortic arch and descending thoracic aorta. Normal visualized thoracic spine. Normal visualized ribs, clavicles, and shoulders. There is no demonstrated abnormality of the visualized soft tissue structures of the upper abdomen. RAD/Chest PA and Lateral IMPRESSION: No change from 11/09/2020. Electronically Signed: Jaxon Scott MD at 10:51 EDT Tel , Service support ,
== END ==
PROVIDERS: PCP Family Medicine Geriatric Medicine; Referring Provider Family Medicine Geriatric Medicine; Visit Provider Family Medicine Geriatric Medicine
DX: J41.0 Simple chronic bronchitis (principal); R68.83 Chills (without fever)
CPT/HCPCS: 71046; 87635; C9803; U0005; U0003

== ENCOUNTER 2021-08-29 12:47 | Outpatient (CLI) | payer MEDICARE, OTHER, SELFPAY ==
--- NOTE | 2021-08-29 15:29 | ST.MBS ---
Modified Barium Swallow - Patient Information Study Date: 08/29/21 Study Time: 13:00 Direct Billable Minutes: 110 Total Minutes procedure & reportin Diagnosis: Dysphagia, oropharyngeal phase (R13.12) Referring Physician: Alfredo Palacios Reason for Referral: Objectively assess swallow function, risk for aspiration, and to determine recommendations for least restrictive diet texture and compensatory strategies to improve safety of swallow. Medical History: The patient is a 75 year old male with current pneumonia who was referred for MBS study to assess swallow function and aspiration risk due to concern for coughing with drinks. He reports at times coughing so much that he will vomit. At night he reports coughing resulting in dry heaving, sometimes vomiting, and even dizziness. The patient stated that he has a tumor that cannot be operated on on his trachea. He stated the tumor pushes on his esophagus and has caused 80% blockage in the past. He is currently receiving chemo- and immuno-therapies with [facility]. He reports no history of speech therapy. From treatment, he has experienced dysgeusia. PMH: Bladder cancer Bladder carcinoma Chronic back pain Chronic gout Chronic kidney disease, stage 3 CKD (chronic kidney disease) stage 3, GFR 30-59 ml/min COPD (chronic obstructive pulmonary disease) Encounter for screening for COVID-19 GERD (gastroesophageal reflux disease) Hyperlipidemia Hypogonadism LUIS CARLOS (obstructive sleep apnea) Pulmonary embolism Renal cancer Renal cell carcinoma Current Diet Ordered: Soft and bite size textures / Thin liquids Dentition: WNL Mental Status: WNL Respiratory Status: Oxygenating on Room Air - Penetration-Aspiration Scale Penetration-Aspiration Scale: OBJECTIVE ASSESSMENT OF SWALLOW FUNCTION (QUANTITATIVE ? PER TRIAL): PENETRATION / ASPIRATION SCALE (ABRAHAM): 1 = does not enter airway 2 = enters airway/above vocal folds/ejected 3 = enters airway/above vocal folds/not ejected 4 = enters airway/contacts vocal folds/ejected 5 = enters airway/contacts vocal folds/not ejected 6 = enters airway/below vocal folds/ejected 7 = enters airway/below vocal folds/not ejected despite effort 8 = enters airway/below vocal folds/no effort VIDEOFLOROSCOPIC SCALE SCORE (ABRAHAM): Grade I = aspiration of material that has penetrated into the laryngeal vestibule, intact cough reflex Grade II = aspiration < 10 % of the bolus, intact cough reflex Grade III = aspiration of < 10 % of the bolus, reduced cough reflex or aspiration of > 10 % of the bolus, intact cough reflex Grade IV = aspiration of > 10 % of the bolus, reduced cough reflex - Penetration-Aspiration Scale Score Thin Liquid via teaspoon Result: 1= does not enter airway Thin Liquid via teaspoon Trial 2 Result: 1= does not enter airway Thin Liquid via small single sip from cup Result: 1= does not enter airway Thin Liquid via sequential sips from cup Result: 1= does not enter airway [place] Thick Liquid via small single sip from cup Result: 1= does not enter airway [place] Thick Liquid via small single sip from cup Result: 1= does not enter airway Pudding Result: 1= does not enter airway 1/2 Amrita Ochoa Cookie with Esophageal Screen Result: 1= does not enter airway Thin Liquid via single sip from straw Result: 1= does not enter airway Thin Liquid via sequential sips from straw Result: 3= enters airways/above vocal folds/not ejected Thin Liquid via small single sip from cup Trial 2 Result: 1= does not enter airway - Oral Phase Labial Seal: No Labial Escape Tongue Control During Bolus Hold: Cohesive bolus between tongue to palatal seal Bolus Preparation/Mastication: Timely and efficient chewing and mashing Bolus Transport/Lingual Motion: Brisk tongue motion Oral Residue: Trace residue lining oral structures - Pharyngeal Phase Initiation of Pharyngeal Swallow: Bolus head in valleculae Soft Palate Elevation: Trace column of contrast/air between soft palate and pharyngeal wall Laryngeal Elevation: Partial superior movement thyroid cart/partial apprx aryt-epig petiole Anterior Hyoid Excursion: Complete anterior movement Epiglottic Movement: Complete inversion Laryngeal Vestibule Closure at Height of Swallow: Incomplete; narrow column of air/contrast in laryngeal vestibule Pharyngeal Stripping Wave: Present - complete Pharyngoesophageal Segment Opening: Parital distension and partial duration; parital obstruction of flow Tongue Base Retraction: Trace column of contrast between tongue base & post. pharyngeal wall Pharyngeal Residue: Collection of residue within or on pharyngeal structures - Esophageal Phase Esophageal Clearance: Esophageal retention w/ retrograde flow below pharyngoesophageal seg. - Treatment Strategies Effects of treatment strategies attemped:: Decreased bolus rate = Effective. Use of straw = Not effective. - Diagnosis/Impression Diagnosis: Pharyngoesophageal phase dysphagia (R13.14) Impression: The oral phase appears to be WNL at this time. The pharyngeal phase of the swallow is marked by mild deficits in airway protection likely due to mildly decreased laryngeal elevation and mild delay initiating sips of thin liquids via straw. The patient demonstrated laryngeal penetration above the vocal folds of sequential sips of thin liquids via straw that did not fully eject from the laryngeal vestibule. With use of single sips via tsp or cup, the patient demonstrated good airway closure. Will recommend slow rate of intake and no straws for consumption of liquids. No aspiration observed during the study. The esophageal phase of the swallow revealed significant retention of cookie bolus in the mid and distal esophagus with retrograde flow below UES. 2 sips of thin liquids consumed after cookie trial greatly improved esophageal clearance; however, pt still with mild retention after liquid wash. Will recommend alternating liquids and solids and following each bite with a sip or two. Additional reflux precautions listed below. Cannot rule out risk for aspiration secondary to reflux at meals. CP present at the level of C6; however, it appears to have no impact on clearance of bolus through the UES. Pt with pouch-like opening in anterior wall of the pharynx at the level of the vocal folds. Residual contrast present in pouch like opening after the swallow. SEE images at the end of MBS study in PACS for pouch-like opening and CP bar. - Recommendations Diet: Thin Liquids Comment: Soft and bite-size Textures Compensatory Strategies: Small Bites - Utilize 1-2 liquid washes after each bite., Small Sips, No Straws, Slow Rate - Sips one at a time, Alternate bites/solids and sips/liquids, Sitting upright, Remain sitting upright for 30 minutes after PO intake Recommend Repeat Modified Barium Swallow: No Need for Skilled Speech Therapy Services: No Recommended Referrals: GI Consult - significant retention of cookie bolus in the mid and distal esophagus with retrograde flow below UES. Cannot rule out aspiration risk secondary to reflux., ENT Consult - Pt with pouch-like opening in anterior wall of the pharynx at the level of the vocal folds. Residual contrast present in pouch like opening after the swallow. SEE images at the end of MBS study in PACS for pouch-like opening and CP bar. Education Completed: 1. Described result of evaluation., 5. Patient demonstrates recommended strategies. - Provided pt written and verbal education re: results and recommendations of MBS study. Education well received. - Status Active ST Patient: Active - Contact Information [facility] Speech Therapy:: Kisha Jensen M.A. [facility]-PAPER COATING MACHINE OPERATOR Speech-Language Pathologist [facility] [address] [facility] [place] [address] [email or web address] [phone] 08/29/21 15:52
== END 2021-08-29 23:59 | disposition short-term general hospital (02) ==
LOC: RAD 12:51
PROVIDERS: PCP Family Medicine Geriatric Medicine; Referring Provider Otolaryngology; Visit Provider Otolaryngology
DX: R13.12 Dysphagia, oropharyngeal phase (principal)
CPT/HCPCS: 74230; 92611

== ENCOUNTER 2021-09-12 08:43 | Outpatient (CLI) | payer MEDICARE, OTHER, SELFPAY ==
--- NOTE | 2021-09-12 08:45 | RAD_ITS ---
STUDY: X-RAY - ESOPHAGUS (BARIUM SWALLOW) WITH FLUOROSCOPY REASON FOR EXAM: Male, 75 years old. ZENKER''S DIVERTICULUM TECHNIQUE: 18 view(s) of the esophagus were obtained following swallowing of barium. FLUOROSCOPY TIME (if supplied): (40 seconds) minutes/seconds COMPARISON: None. FINDINGS: There is no demonstrated esophageal foreign body. There is no demonstrated stricture or mucosal abnormality. Normal gastroesophageal junction, without a demonstrated hiatal hernia. The patient ingested a 12 mm tablet of barium without any difficulty. There is atherosclerotic tortuosity of the aortic arch and descending thoracic aorta. Infiltrate in the right upper lobe. There are diffuse degenerative changes of the visualized thoracic spine. RAD/Esophagus Single Contrast IMPRESSION: No esophageal abnormality is seen. Electronically Signed: López Palafox MD at 14:05 EST ,
== END 2021-09-12 23:59 | disposition home or self-care (01) ==
LOC: RAD 08:44
PROVIDERS: PCP Family Medicine Geriatric Medicine; Referring Provider Otolaryngology; Visit Provider Otolaryngology
DX: K22.5 Diverticulum of esophagus, acquired (principal)
CPT/HCPCS: 74220

== ENCOUNTER 2021-09-21 11:30 | Outpatient (CLI) | payer MEDICARE, OTHER, SELFPAY ==
[2020-12-22 07:51] VITALS: BMI 29.2
[2021-09-21 12:37] LABS: Absolute Lymphocyte Count 0.63 X10^3/uL (0.83-4.51); Absolute Neutrophil Count 4.8 X10^3/uL (2.0-7.7); Basophil# 0.04 X10^3/uL; Basophil% 0.6 % (0-1); Eosinophil# 0.17 X10^3/uL; Eosinophils% 2.7 % (0-5); Hematocrit 32.3 % (40-54); Hemoglobin 10.2 g/dL (13.0-16.5); Lymphocyte # 0.63 X10^3/ul (0.83-4.51); Lymphocyte % 9.9 % (19-41); Mean Corp Hgb Conc 31.6 g/dL (32-36); Mean Corpuscular Hgb 29.7 pg (27.0-32.0); Mean Corpuscular Volume 93.9 fL (80-94); Mean Platelet Vol. 9.9 fl (6.2-12.0); Monocyte# 0.68 X10^3/uL; Monocyte% 10.7 % (0-10); NRBC Flagged by Analyzer 0 % (0-5); Neutrophil # 4.78 X10^3/uL (2.7-7.7); Neutrophil % 74.8 % (47-70); Platelet Count 299 K/mm3 (150-450); RBC Distribution Width SD 51.9 fl (35.1-43.9); Red Blood Count 3.44 M/mm3 (4.6-6.2); White Blood Count 6.4 K/mm3 (4.4-11.0)
[2021-09-21 12:49] LABS: Protein, Urine (Random) 43.7 mg/dL (<11.9); Protein:Creat Ratio 173 mg/g CRE (0-200)
[2021-09-21 12:51] LABS: Vitamin D,25 Hydroxy 33.2 ng/mL
[2021-09-21 12:57] LABS: ALB/GLOB Ratio 0.6 RATIO (0.9-2.4); AST(SGOT) 29 U/L (15-37); Alanine Aminotransfer ALT/SGPT 39 U/L (16-61); Albumin, Serum 2.7 g/dL (3.2-5.0); Alkaline Phosphatase 218 U/L (45-117); Anion Gap 5 (5-15); BUN 27 mg/dL (7-18); BUN/Creat Ratio 13.5 RATIO (10-20); Calcium,Total 9.1 mg/dL (8.5-10.1); Chloride 100 mmol/L (98-107); EST Glomerular Filtration Rate 35 mL/min (>60); Est Glom Filt Rate - Afr Amer 42 mL/min (>60); Globulin 4.8 g/dL (2.2-4.2); Glucose 89 mg/dL (74-106); Potassium 4.5 mmol/L (3.5-5.1); Protein, Total 7.5 g/dL (6.4-8.2); Sodium Level 132 mmol/L (136-145); Thyroid Stim Hormone (TSH) 2.18 uIU/mL (0.358-3.74); Uric Acid 4.7 mg/dL (3.5-7.2)
== END 2021-09-21 23:59 | disposition home or self-care (01) ==
LOC: POLAB3 11:33
PROVIDERS: Internal Medicine Nephrology; PCP Family Medicine Geriatric Medicine; Visit Provider Family Medicine Geriatric Medicine
DX: C64.9 Malignant neoplasm of unspecified kidney, except renal pelvis (principal); N18.32 Chronic kidney disease, stage 3b; E55.9 Vitamin D deficiency, unspecified; F52.8 Other sexual dysfunction not due to a substance or known physiological condition; M10.9 Gout, unspecified; R53.83 Other fatigue
CPT/HCPCS: 36415; 80053; 82306; 82570; 84156; 84403; 84443; 84550; 85025

== ENCOUNTER → 2021-12-27 | Outpatient (CLI) | payer MEDICARE, OTHER, SELFPAY ==
[2021-12-27 12:24] LABS: Hematocrit 42.8 % (40-54); Hemoglobin 13.5 g/dL (13.0-16.5); Mean Corp Hgb Conc 31.5 g/dL (32-36); Mean Corpuscular Hgb 29.5 pg (27.0-32.0); Mean Corpuscular Volume 93.7 fL (80-94); Mean Platelet Vol. 10.2 fl (6.2-12.0); POSITIVE COUNT YES; POSITIVE DIFFERENTIAL YES; POSITIVE MORPHOLOGY YES; Platelet Count 173 K/mm3 (150-450); RBC Distribution Width CV 16.2 % (11.6-14.6); RBC Distribution Width SD 55.6 fl (35.1-43.9); Red Blood Count 4.57 M/mm3 (4.6-6.2); White Blood Count 6.9 K/mm3 (4.4-11.0)
[2021-12-27 12:28] LABS: Differential Indicated MANUAL DIFF
[2021-12-27 12:52] LABS: ALB/GLOB Ratio 0.9 RATIO (0.9-2.4); AST(SGOT) 27 U/L (15-37); Alanine Aminotransfer ALT/SGPT 48 U/L (16-61); Alkaline Phosphatase 66 U/L (45-117); Anion Gap 7 (5-15); BUN 29 mg/dL (7-18); BUN/Creat Ratio 15.1 RATIO (10-20); Calcium,Total 9.1 mg/dL (8.5-10.1); Chloride 105 mmol/L (98-107); Creatinine, Serum 1.92 mg/dL (0.70-1.30); EST Glomerular Filtration Rate 36 mL/min (>60); Est Glom Filt Rate - Afr Amer 44 mL/min (>60); Globulin 3.5 g/dL (2.2-4.2); Glucose 121 mg/dL (74-106); Potassium 4.2 mmol/L (3.5-5.1); Protein, Total 6.5 g/dL (6.4-8.2); Sodium Level 138 mmol/L (136-145); Thyroid Stim Hormone (TSH) 2.48 uIU/mL (0.358-3.74); Uric Acid 5.2 mg/dL (3.5-7.2); Vitamin D,25 Hydroxy 25.8 ng/mL
[2021-12-27 12:57] LABS: Atypical Lymphocyte 1+ %; Lymphocyte 14 % (19-41); Monocyte 14 % (0-10); Neutrophil-Band 6 % (0-5); Neutrophil-Segmented 66 % (47-70); Platelet Estimate ADEQUATE (ADEQ); Red Cell Morphology NORM C+C NORMAL (NORM C&C); Total Cells Counted 100 (MANUAL DIFF)
[2021-12-27 13:00] LABS: Absolute Lymphocyte Count 0.97 X10^3/uL (0.83-4.51); Absolute Neutrophil Count 49.7 X10^3/uL (2.0-7.7)
[2021-12-28 12:58] LABS: Pathologist Review Reviewed
== END | disposition home or self-care (01) ==
LOC: POLAB3 09:55
PROVIDERS: PCP Family Medicine Geriatric Medicine; Visit Provider Family Medicine Geriatric Medicine
DX: R53.83 Other fatigue (principal); E23.6 Other disorders of pituitary gland; E55.9 Vitamin D deficiency, unspecified; M10.9 Gout, unspecified
CPT/HCPCS: 36415; 80053; 82306; 84403; 84443; 84550; 85025

== ENCOUNTER → 2022-04-11 | Outpatient (CLI) | payer MEDICARE, OTHER, SELFPAY ==
[2022-04-11 12:11] LABS: Absolute Lymphocyte Count 0.66 X10^3/uL (0.83-4.51); Absolute Neutrophil Count 5.7 X10^3/uL (2.0-7.7); Basophil# 0.09 X10^3/uL; Basophil% 1.2 % (0-1); Eosinophil# 0.22 X10^3/uL; Eosinophils% 2.9 % (0-5); Hematocrit 44.2 % (40-54); Hemoglobin 14.7 g/dL (13.0-16.5); Lymphocyte # 0.66 X10^3/ul (0.83-4.51); Lymphocyte % 8.7 % (19-41); Mean Corp Hgb Conc 33.3 g/dL (32-36); Mean Corpuscular Hgb 29.9 pg (27.0-32.0); Mean Platelet Vol. 10.4 fl (6.2-12.0); Monocyte# 0.55 X10^3/uL; Monocyte% 7.3 % (0-10); NRBC Flagged by Analyzer 0 % (0-5); Neutrophil # 5.68 X10^3/uL (2.7-7.7); Neutrophil % 75.3 % (47-70); Platelet Count 178 K/mm3 (150-450); RBC Distribution Width CV 14.6 % (11.6-14.6); RBC Distribution Width SD 48.4 fl (35.1-43.9); Red Blood Count 4.91 M/mm3 (4.6-6.2); White Blood Count 7.6 K/mm3 (4.4-11.0)
[2022-04-11 12:46] LABS: ALB/GLOB Ratio 0.8 RATIO (0.9-2.4); AST(SGOT) 24 U/L (15-37); Alanine Aminotransfer ALT/SGPT 31 U/L (16-61); Albumin, Serum 3.1 g/dL (3.2-5.0); Alkaline Phosphatase 68 U/L (45-117); Anion Gap 9 (5-15); BUN 33 mg/dL (7-18); BUN/Creat Ratio 17.1 RATIO (10-20); Calcium,Total 8.9 mg/dL (8.5-10.1); Chloride 104 mmol/L (98-107); Creatinine, Serum 1.93 mg/dL (0.70-1.30); EST Glomerular Filtration Rate 36 mL/min (>60); Est Glom Filt Rate - Afr Amer 44 mL/min (>60); Globulin 3.8 g/dL (2.2-4.2); Glucose 78 mg/dL (74-106); Potassium 4.1 mmol/L (3.5-5.1); Protein, Total 6.9 g/dL (6.4-8.2); Sodium Level 139 mmol/L (136-145); Thyroid Stim Hormone (TSH) 3.63 uIU/mL (0.358-3.74); Uric Acid 8.5 mg/dL (3.5-7.2)
[2022-04-11 12:51] LABS: Vitamin D,25 Hydroxy 30.2 ng/mL
== END | disposition home or self-care (01) ==
LOC: POLAB3 09:49
PROVIDERS: PCP Family Medicine Geriatric Medicine; Visit Provider Family Medicine Geriatric Medicine
DX: R53.83 Other fatigue (principal); E23.6 Other disorders of pituitary gland; E55.9 Vitamin D deficiency, unspecified; M10.9 Gout, unspecified
CPT/HCPCS: 36415; 80053; 82306; 84403; 84443; 84550; 85025

== ENCOUNTER → 2022-05-23 | Outpatient (CLI) | payer MEDICARE, OTHER, SELFPAY ==
[2022-05-23 18:04] LABS: Albumin, Serum 3.7 g/dL (3.2-5.0); BUN 29 mg/dL (7-18); BUN/Creat Ratio 12.6 RATIO (10-20); Calcium,Total 9.4 mg/dL (8.5-10.1); Chloride 103 mmol/L (98-107); EST Glomerular Filtration Rate 30 mL/min (>60); Est Glom Filt Rate - Afr Amer 36 mL/min (>60); Glucose 85 mg/dL (74-106); Phosphorus 3.9 mg/dL (2.5-4.9); Potassium 4.8 mmol/L (3.5-5.1); Sodium Level 139 mmol/L (136-145)
[2022-05-23 18:08] LABS: PTHIN 104.8 pg/mL (18.4-80.1)
== END | disposition home or self-care (01) ==
LOC: POLAB3 16:55
PROVIDERS: PCP Family Medicine Geriatric Medicine; Visit Provider Internal Medicine Nephrology
DX: N18.32 Chronic kidney disease, stage 3b (principal)
CPT/HCPCS: 36415; 80069; 83970

== ENCOUNTER → 2022-10-10 | Outpatient (CLI) | payer MEDICARE, OTHER, SELFPAY ==
[2022-10-10 13:08] LABS: Absolute Lymphocyte Count 0.41 X10^3/uL (0.83-4.51); Absolute Neutrophil Count 6.6 X10^3/uL (2.0-7.7); Basophil# 0.02 X10^3/uL; Basophil% 0.3 % (0-1); Hematocrit 38.7 % (40-54); Hemoglobin 12.2 g/dL (13.0-16.5); Lymphocyte # 0.41 X10^3/ul (0.83-4.51); Lymphocyte % 5.3 % (19-41); Mean Corp Hgb Conc 31.5 g/dL (32-36); Mean Corpuscular Hgb 30.9 pg (27.0-32.0); Mean Platelet Vol. 10.4 fl (6.2-12.0); Monocyte# 0.45 X10^3/uL; Monocyte% 5.8 % (0-10); NRBC Flagged by Analyzer 0 % (0-5); Neutrophil # 6.63 X10^3/uL (2.7-7.7); Neutrophil % 85.8 % (47-70); POSITIVE DIFFERENTIAL YES; Platelet Count 289 K/mm3 (150-450); RBC Distribution Width CV 16.8 % (11.6-14.6); RBC Distribution Width SD 60.1 fl (35.1-43.9); Red Blood Count 3.95 M/mm3 (4.6-6.2); White Blood Count 7.7 K/mm3 (4.4-11.0)
[2022-10-10 13:10] LABS: Differential Indicated SCAN CRITERIA MET
[2022-10-10 13:24] LABS: Vitamin D,25 Hydroxy 21.2 ng/mL
[2022-10-10 13:36] LABS: ALB/GLOB Ratio 0.8 RATIO (0.9-2.4); AST(SGOT) 27 U/L (15-37); Alanine Aminotransfer ALT/SGPT 34 U/L (16-61); Alkaline Phosphatase 61 U/L (45-117); Anion Gap 10 (5-15); BUN 45 mg/dL (7-18); BUN/Creat Ratio 27.4 RATIO (10-20); Calcium,Total 8.9 mg/dL (8.5-10.1); Chloride 105 mmol/L (98-107); Creatinine, Serum 1.64 mg/dL (0.70-1.30); EST Glomerular Filtration Rate 44 mL/min (>60); Est Glom Filt Rate - Afr Amer 53 mL/min (>60); Globulin 3.7 g/dL (2.2-4.2); Glucose 82 mg/dL (74-106); Potassium 4.3 mmol/L (3.5-5.1); Protein, Total 6.7 g/dL (6.4-8.2); Sodium Level 140 mmol/L (136-145); Thyroid Stim Hormone (TSH) 1.11 uIU/mL (0.358-3.74); Uric Acid 4.9 mg/dL (3.5-7.2)
[2022-10-10 13:57] LABS: Differential Comment SCANNED
== END | disposition home or self-care (01) ==
LOC: POLAB3 10:20
PROVIDERS: PCP Family Medicine Geriatric Medicine; Visit Provider Family Medicine Geriatric Medicine
DX: E55.9 Vitamin D deficiency, unspecified (principal); R53.83 Other fatigue; M10.9 Gout, unspecified; N52.9 Male erectile dysfunction, unspecified
CPT/HCPCS: 36415; 80053; 82306; 84403; 84443; 84550; 85025

== ENCOUNTER → 2022-12-03 | Outpatient (CLI) | payer MEDICARE, OTHER, SELFPAY | END | disposition home or self-care (01) | PROVIDERS: PCP Family Medicine Geriatric Medicine; Referring Provider Ophthalmology; Visit Provider Ophthalmology | DX: H02.411 Mechanical ptosis of right eyelid (principal) | CPT/HCPCS: 36415 ==

== ENCOUNTER 2022-12-10 14:30 | Outpatient (RCR) | payer MEDICARE, OTHER, SELFPAY ==
--- NOTE | 2022-09-27 08:53 | HP.PTEVAL_ITS ---
Patient's Visit Information CHECO GRAY is a 76 year old M referred to Physical Therapy by Dr. David Chandler MD with a diagnosis of Other fatigue, R53.83. Date of Evaluation: 09/27/22 Physical Therapist: Dami Garcia - Visit Plan Frequency: 2x /Week Duration: 6 Weeks Plan: Continue to work on improving LE strength, endurance, and balance. Progress as tolerated and monitor vital signs. - Subjective Pt. is a 76 y.o. male who has noticed he has been feeling more weak in the last three months. His PLOF includes currently has lung cancer which he was diagnosed 20 years and has been doing chemotherapy for the last three years. Pt. is scheduled for a PET scan on Saturday. He denies any falls. Pt. does have neuropathy in both of his feet. He has difficulty with standing/walking longer than 5 minutes, squatting, getting up from a low chair, ascending/descending stairs, housework, and yard work. Pt. is retired and worked at [email or web address] previously. His goal with physical therapy is to improve his overall strength in his legs and walk without getting out of breath. He has had previous physical therapy for multiple things in the past. Pt. denies any pain. He is currently taking Predisone. His PMH includes lung cancer, right upper lobe removed, bladder cancer, right kidney removed, two lumbar fusions, peripheral neuropathy, and sleep apnea. Pt. lives with his in a one story home with basement with four steps to enter and handrail on right side. His hobbies include golfing, wood working, and gardening. - Objective Posture- Kyphotic posture in standing with decreased lordotic curve of lumbar spine. Palpation- No tenderness to palpation. Hip PROM- WNL bilaterally. Moderate tight hamstrings bilaterally. Left hip strength flexion [4+/5], abduction [4+/5], adduction [5/5], extension [4+/5], knee flexion [5/5], knee extension [5/5], ankle DF [5/5], ankle PF [5/5]. Right hip strength flexion [4/5], abduction [4/5], adduction [4+/5], extension [4/5], knee flexion [5/5], knee extension [4+/5], ankle DF [5/5], ankle PF [5/5]. Tandem stance right [9 secs ], left [14 secs]. SLS right [5 secs ], left [1 sec ]. 30 sec sit to stand- x 10 with no arm assist. Gait- Pt. ambulates with forward flexed posture. - Balance/Special Test Scores Lower Extremity Functional Score: 37 - Goals Goal 1:: Pt. will be able to stand/walk for at least 10 minutes with no rest break in order to improve endurance. Goal Time Frame: 4-6 Weeks Goal 2:: Pt. will be able to complete at least 12 sit to stands in 30 secs in order to improve ADL's. Goal Time Frame: 4-6 Weeks Goal 3:: Pt. will be able to ascend/descend a flight of stairs with alternating step pattern and unilateral handrail. Goal Time Frame: 4-6 Weeks Goal 4:: Pt. will report no falls. Goal Time Frame: 4-6 Weeks Goal 5:: Pt. will improve tandem stance > 20 secs in order to improve stability and balance. Goal Time Frame: 4-6 Weeks Goal 6:: Pt. will improve LEFS score <50% disability in order to improve mobility. Goal Time Frame: 4-6 Weeks - Rehabilitation Potential Physical Therapy Diagnosis: Decreased LE strength, endurance, and balance Rehabilitation Potential: Good - Anticipated Interventions Patient/Client Instruction: Educate patient on: Condition, Plan of Care, Benefits of Fitness Program For the Purpose of:: To improve ability to perform ADL's, To improve performance and independence with ADL's, To assume or resume ADL's, To improve tolerance to ADL's Therapeutic Exercise to Include: Strength training, Endurance training, Balance training, Gait and locomotor training Comment: Continue with improving LE strength, endurance, and balance. For the Purpose of:: To improve ability to perform ADL's, To improve performance and independence with ADL's, To improve balance, To assume or resume ADL's, To improve tolerance to ADL's Functional Training to Include: ADL Training For the Purpose of:: To improve ability to perform ADL's, To improve performance and independence with ADL's, To assume or resume ADL's, To improve tolerance to ADL's Thank you for the opportunity to evaluate your patient. For Medicare and Medicare HMO plans, please review the plan of care and approve it. It will need to be FAXED BACK to us at [phone] for Medicare purposes. For Medicare only, by signing this I certify the plan of care. Please let me know if there are questions or concerns regarding this plan of care. Physician Signature: Date:
--- NOTE | 2022-10-26 08:55 | HP.PTREVAL ---
Dr. David Chandler MD, It has been my pleasure to treat CHECO GRAY over the last 9 visits for Other fatigue, R53.83. Please see the progress note below for an update on the physical therapy plan of care! Subjective: Patient reports that he is still on a lot of prednisone so its hard to sleep some nights- so its hard to sleep some nights and then its hard to complete therapy. The things he struggles with the most is getting up and down from a chair and then getting up/down off the floor. He requires UE A. He feels that continuation of therapy would be helpful. He would like to start in another week- due to his having back surgery. He goes up.down steps at home- sitting and standing hip flexion/abd-leg lifts on the total gym. No pain just weaknes Objective/Function: Posture- Kyphotic posture in standing with decreased lordotic curve of lumbar spine. Palpation- No tenderness to palpation. Hip PROM- WNL bilaterally. Moderate tight hamstrings bilaterally. Left hip strength flexion [4+/5], abduction [4+/5], adduction [5/5], extension [4+/5], knee flexion [5/5], knee extension [5/5], ankle DF [5/5], ankle PF [5/5]. Right hip strength flexion [4+/5], abduction [4+/5], adduction [4+/5], extension [4+/5], knee flexion [5/5], knee extension [5/5], ankle DF [5/5], ankle PF [5/5]. Tandem stance right [10 secs ], left [15 secs]. SLS right [5 secs ], left [3 sec ]. 30 sec sit to stand- x 7 with no arm assist. Gait- Pt. ambulates with forward flexed posture no AD. Plan Plan: 10/26/22:3x a week- 2x a week continue with current ex circuits and 1x a week machines. Continue to work on improving LE strength, endurance, and balance. Progress as tolerated and monitor vital signs. Balance/Gait/Functional tests - Balance/Special Test Scores Lower Extremity Functional Score: 18 Goals Goal 1:: Pt. will be able to stand/walk for at least 10 minutes with no rest break in order to improve endurance. Goal Time Frame: 4-6 Weeks Goal Progress: Progressing Goal 2:: Pt. will be able to complete at least 12 sit to stands in 30 secs in order to improve ADL's. Goal Time Frame: 4-6 Weeks Goal Progress: Progressing Goal 3:: Pt. will be able to ascend/descend a flight of stairs with alternating step pattern and unilateral handrail. Goal Time Frame: 4-6 Weeks Goal Progress: Progressing Goal 4:: Pt. will report no falls. Goal Time Frame: 4-6 Weeks Goal Progress: Progressing Goal 5:: Pt. will improve tandem stance > 20 secs in order to improve stability and balance. Goal Time Frame: 4-6 Weeks Goal Progress: Progressing Goal 6:: Pt. will improve LEFS score <50% disability in order to improve mobility. Goal Time Frame: 4-6 Weeks Goal Progress: Progressing Anticipated Interventions Patient/Client Instruction: Educate patient on: Condition, Plan of Care, Benefits of Fitness Program For the Purpose of:: To improve ability to perform ADL's, To improve performance and independence with ADL's, To assume or resume ADL's, To improve tolerance to ADL's Therapeutic Exercise to Include: Strength training, Endurance training, Balance training, Gait and locomotor training Comment: Continue with improving LE strength, endurance, and balance. For the Purpose of:: To improve ability to perform ADL's, To improve performance and independence with ADL's, To improve balance, To assume or resume ADL's, To improve tolerance to ADL's Functional Training to Include: ADL Training For the Purpose of:: To improve ability to perform ADL's, To improve performance and independence with ADL's, To assume or resume ADL's, To improve tolerance to ADL's Please do not hesitate to contact me at [phone] by phone or if you have questions or concerns regarding this new plan of care! Sincerely, Maria E Buckley DPT
--- NOTE | 2022-12-10 16:51 | HP.PTREVAL_ITS ---
Dr. David Epstein MD, It has been my pleasure to treat CHECO GRAY over the last 18 visits for Other fatigue, R53.83. Please see the progress note below for an update on the physical therapy plan of care! Subjective: PATIENT REPORTS PT WAS HELPING BUT HE HAD TO STOP DUE TO CHEMOTHERAPY SIDE-EFFECTS. 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 PATIENT REPORT S DR. EPSTEIN ORDERED MRI FOR HIS LOW BACK TODAY BUT HASNT' BEEN SCHEDULED YET. PATIENT REPORTS DR. EPSTEIN ALSO REFERRED HIM TO PAIN MGMT WHEN HE SAW HIM TODAY AND THAT IS NOT SET UP YET EITHER. HAS HAD 2 BACK SURGERIES WITH THE LAST ONE BEING ABOUT 5 YEARS AGO. CURRENT SX'S: R LOW BACK, HIP AND THIGH PAIN AND TOTAL NUMBESS OF R LE. AND I HAVE NO STRENGTH IN MY RIGHT LEG. PATIENT REPORTS IF HE DOESN'T PUT THE CANE DOWN AT THE SAME TIME HE STEPS ON HIS RIGHT LEG HE GOES DOWN. HAS FALLEN TWICE IN THE LAST 2 DAYS WHEN R LEG GAVE OUT. PATIENT REPORTS HE CAN NOT LEAD UP STEPS WITH R LE. LIVES IN [place]AN[place] WITH 4 STEPS INTO HOUSE WITH 2 HR'S. BEDROOM IS IN BASEMENT WITH 2 HR'S. PATIENT REPORTS SUDDEN INCREASE IN R LE PAIN, NUMBNESS AND WEAKNESS LAST SaturdayDecember. SUDDEN ONSET OF RIGHT LB, HIP AND THIGH PAIN TOO. NEW ONSET OF THESE SX'S FOR NO APPARENT REASON OTHER THAN RE-MODELING OF HOME. PATIENT REPORTS A MAJOR DECLINE IN HIS MOBILITY WITH THIS ONSET. Objective/Function: PATIENT WAS SEEN TODAY FOR ASSESSMENT OF R SCIATICA DX WITH ORDER FROM DR. EPSTEIN. UPON EXAM TODAY PATIENT HAS DECREASED LIGHT TOUCH SENSATION OF R LE COMPARED TO LEFT AND SIGNIFICANT R LE WEAKNESS: HIP 2/3, KNEE 2/5, ANKLE 3-/5. PATIENT TRANSFERRED INDEP'LY FROM SIT TO AUTOMATIC COIN MACHINE MECHANIC THE LOBBY AND INDEP'LY WALKED ABOUT 30 FEET WITH HIS CANE BEFORE THIS PT RECOMMENDED BEING BROUGHT THE REST OF THE WAY BACK TO PT IN A W/C FOR SAFETY. PATIENT WAS RELUCTANT BUT AGREEABLE. HE IS UNSAFE AMBULATING BUT SAFER WITH FWW THAN CANE. LUMBAR MVMT LOSS: FLEX - MOD, EXT - MAJOR, RASHMI SG - MONIKA. PATIENT DENIES PAIN WITH LUMBAR ROM TESTING EXCEPT FLEXION AND HE POINTS TO HIS RIGHT LOW BACK REGION. PATIENT BASICALLY CAN NOT LIFT HIS R LE IN SITTING WITHOUT ASSIST FROM HIS UE'S. IT IS surprising THAT HE IS EVEN ABLE TO WALK WITH THE CANE OR WALKING WITH THE AMT OF WEAKNESS HE DEMO'S IN THE R LE. THIS PT RECOMMENDED TRANSPORT TO CAR IN W/C AND USE OF WALKER AT ALL TIMES AT HOME FOR SAFETY - PATIENT AGREEABLE AT END OF SESSION. NEW GOALS: 1. DECREASE C/O LOW BACK AND R LE SX'S IN 4-6 WKS. 2. IMPROVE PERSONAL CARE, LIFTING, WALKING, SITTING, STANDING, SLEEP, SOCIAL LIFE, TRAVEL AND HOMEMAKING FUNCTION IN 4-6 WKS. 3. PATIENT WILL BE INDEP WITH HEP FOR CONTINUED IMPROVEMENT ONCE FORMAL PHYSICAL THERAPY CONCLUDES IN 4-6 WKS. Plan Plan: 12/10/22: PT PLAN FOR R SCIATICA: 2X'S A WK X 4-6 WKS X 10 VISITS TOLERATED. *GAIT BELT FOR SAFETY WHEN UP IN CLINIC*. POSTURE CORRECTION/STRENGTHENING, INSTRUCTION IN APPROPRIATE BODY MECHANICS AND ACTIVITY MODIFICATIONS. DLS STARTING WITH A NEUTRAL SPINE PROGRESSING ROM TOLERATED. RASHMI LE ROM, STRETCHING AND STRENGTHENING. HEP INSTRUCTION. PATIENT WANTS TO HOLD PRIOR PT FOR NOW: 10/26/22:3x a week- 2x a week continue with current ex circuits and 1x a week machines. Continue to work on improving LE strength, endurance, and balance. Progress as tolerated and monitor vital signs. Balance/Gait/Functional tests - Balance/Special Test Scores Oswestry Low Back Score: 24 Lower Extremity Functional Score: 18 Goals Goal 1:: Pt. will be able to stand/walk for at least 10 minutes with no rest break in order to improve endurance. Goal Time Frame: 4-6 Weeks Goal Progress: Progressing Goal 2:: Pt. will be able to complete at least 12 sit to stands in 30 secs in order to improve ADL's. Goal Time Frame: 4-6 Weeks Goal Progress: Progressing Goal 3:: Pt. will be able to ascend/descend a flight of stairs with alternating step pattern and unilateral handrail. Goal Time Frame: 4-6 Weeks Goal Progress: Progressing Goal 4:: Pt. will report no falls. Goal Time Frame: 4-6 Weeks Goal Progress: Progressing Goal 5:: Pt. will improve tandem stance > 20 secs in order to improve stability and balance. Goal Time Frame: 4-6 Weeks Goal Progress: Progressing Goal 6:: Pt. will improve LEFS score <50% disability in order to improve mobility. Goal Time Frame: 4-6 Weeks Goal Progress: Progressing Anticipated Interventions Patient/Client Instruction: Educate patient on: Condition, Plan of Care, Benefits of Fitness Program For the Purpose of:: To improve ability to perform ADL's, To improve performance and independence with ADL's, To assume or resume ADL's, To improve tolerance to ADL's Therapeutic Exercise to Include: Strength training, Endurance training, Balance training, Gait and locomotor training Comment: Continue with improving LE strength, endurance, and balance. For the Purpose of:: To improve ability to perform ADL's, To improve performance and independence with ADL's, To improve balance, To assume or resume ADL's, To improve tolerance to ADL's Functional Training to Include: ADL Training For the Purpose of:: To improve ability to perform ADL's, To improve performance and independence with ADL's, To assume or resume ADL's, To improve tolerance to ADL's Please do not hesitate to contact me at [phone] by phone or if you have questions or concerns regarding this new plan of care! Sincerely, Christen Billy, PT, Cert MDT
--- NOTE | 2023-02-14 17:11 | HP.PT.NRP ---
Patient Information Patient Information: CHECO GRAY was seen in my office for initial evaluation on 09/27/22. The following Plan of Care was established for this patient: POC Established Initial Frequency: 2x /Week Initial Duration: 6 Weeks Anticipated Interventions Patient/Client Instruction: Educate patient on: Condition, Plan of Care and Benefits of Fitness Program For the Purpose of:: To improve ability to perform ADL's, To improve performance and independence with ADL's, To assume or resume ADL's and To improve tolerance to ADL's Therapeutic Exercise to Include: Strength training, Endurance training, Balance training and Gait and locomotor training For the Purpose of:: To improve ability to perform ADL's, To improve performance and independence with ADL's, To improve balance, To assume or resume ADL's and To improve tolerance to ADL's Functional Training to Include: ADL Training For the Purpose of:: To improve ability to perform ADL's, To improve performance and independence with ADL's, To assume or resume ADL's and To improve tolerance to ADL's Last Seen Last Seen: This patient was last seen in our office . Pertinent comments regarding their Physical therapy will appear below: Pt was to call after next round of tests- has not called and is appropriate to be d.c and follow up as needed. At this point I will be discontinuing this patient from physical therapy. I would be happy to see this patient again in the future if found appropriate by the physician. Thank you! Maria E Buckley, DPT Balance/Gait/Functional tests Balance/Special Test Scores Oswestry Low Back Score: 24 Lower Extremity Functional Score: 18
== END 2022-12-10 19:00 | disposition home or self-care (01) ==
LOC: PT 14:30
PROVIDERS: PCP Family Medicine Geriatric Medicine; Referring Provider Family Medicine Geriatric Medicine; Visit Provider Family Medicine Geriatric Medicine
DX: R53.83 Other fatigue (principal)
CPT/HCPCS: 97110; 97162; 97164; 97530

== ENCOUNTER 2022-12-15 16:53 | Emergency (ER) | payer MEDICARE, OTHER, SELFPAY ==
[2022-12-15 16:53] VITALS: BP 132/86; PULSE 97; RESP 20; TEMP 36.6; O2SAT 95
--- NOTE | 2022-12-15 17:33 | RAD_ITS ---
STUDY: X-RAY - RIGHT KNEE REASON FOR EXAM: Male, 76 years old. injury TECHNIQUE: 4 view(s) of the knee. COMPARISON: None. FINDINGS: Normal visualized distal femur. Normal visualized proximal tibia and fibula. Normal proximal tibiofibular articulation. Narrowed medial femorotibial compartment. Normal lateral femorotibial compartment. Normal patellofemoral articulation. The soft tissue structures are unremarkable. RAD/Knee 4 or More Views IMPRESSION: Mild degenerative change. No acute fracture or other significant bony pathology Electronically Signed: Juan Alberto Stapleton MD at 20:16 EDT ,
--- NOTE | 2022-12-15 17:33 | MRI_ITS ---
STUDY: MRI LUMBAR SPINE WITH AND WITHOUT CONTRAST REASON FOR EXAM: Male, 76 years old. R leg weakness -- history of lung cancer, right leg weak hip/knee TECHNIQUE: Standardized fat and water weighted pulse sequences were obtained in the sagittal and axial planes. IV 20cc clariscan was administered for the contrast portion of the examination. COMPARISON: None FINDINGS: T12-L1: Normal endplates. Normal disc height, desiccation and normal morphology. Normal bilateral facet joints. Normal central canal and bilateral lateral recesses. Normal bilateral intervertebral neural foramina. Normal lumbar lordosis. There is no substantial scoliosis. Normal conus medullaris that terminates at L1 L1-2: Normal endplates. Normal disc height, desiccation and normal morphology. Normal bilateral facet joints. Normal central canal and bilateral lateral recesses. Normal bilateral intervertebral neural foramina. L2-3: Degenerative endplate changes. Mildly narrowed disc space with desiccation of disc and moderate annular bulge. Bilateral facet arthropathy. Severe central canal stenosis in association with prominent posterior epidural fat pad. Moderate bilateral lateral recess stenosis and severe neural foraminal stenosis L3-4: Postop change status post bilateral laminectomy and posterior fusion.. Normal disc height, hydration and morphology. Asymmetric hypertrophy of the left facet and thickening of ligamentum flavum Normal central canal. Mild left lateral recess and bilateral neural foraminal encroachment L4-5: Status post bilateral laminectomy posterior fusion Normal endplates. Normal disc height, hydration and morphology. Normal bilateral facet joints. Normal central canal and bilateral lateral recesses. Normal bilateral intervertebral neural foramina. L5-S1: Status post bilateral laminectomy and posterior fusion Normal endplates. Normal disc height, hydration and morphology. Normal bilateral facet joints. Normal central canal and bilateral lateral recesses. Normal bilateral intervertebral neural foramina. Normal visualized sacral ala. Normal visualized paraspinous soft tissue structures. No enhancing lesions following contrast administration MRI/Spine Lumbar W/WO Contrast IMPRESSION: No evidence for acute fracture or other significant bony pathology.. Postsurgical changes at L3-4, L4-5 and L5-S Mild spinal stenosis on the left at L3-4 secondary to asymmetric facet arthropathy and exaggerated by. More severe spinal stenosis at L2-3 secondary to disc disease, facet arthropathy and exaggerated by prominent posterior epidural fat Electronically Signed: Juan Alberto Stapleton MD at 20:15 EDT Reading Location ID and State: [facility] / [place] , Service support ,
--- NOTE | 2022-12-15 17:50 | ED.VIS.FALL ---
HPI HPI - Fall History of Present Illness Chief Complaint: Fall Informant: patient and spouse/S.O. Narrative Narrative: Presents the ED multiple falls due to worsening right leg weakness paresthesias. History of remote renal cell carcinoma with nephrectomy in the past. Recent diagnosis of lung cancer this past June started left side and reported bilateral. He is followed by Dr. Noble. He was doing chemotherapy weekly for 3 weeks skipping the fourth week and restarting. His last treatment was little over 2 weeks ago, it was stopped due to skin reactions to his left hand. Reports previous there is mild weakness to his right leg he had lumbar surgery 5 years ago. He is able to family without any assistance. Over the past week there has been increasing weakness and numbness to the leg, he has fallen multiple times. He states his leg gives out and he falls down onto his knee. There is been bruising to his foot and knee. He denies any loss of bowel or bladder control. Denies any head injuries. Records also notes history of bladder cancer. Prior similar symptoms: No PFSH PFSH Medical History (Updated 12/15/22 @ 21:[address] Derick Montilla, DO) Bladder cancer Bladder carcinoma Chronic back pain Chronic gout Chronic kidney disease, stage 3 CKD (chronic kidney disease) stage 3, GFR 30-59 ml/min COPD (chronic obstructive pulmonary disease) Encounter for screening for COVID-19 GERD (gastroesophageal reflux disease) Hyperlipidemia Hypogonadism Lung cancer LUIS CARLOS (obstructive sleep apnea) Pulmonary embolism Renal cancer Renal cell carcinoma Home Medications albuterol sulfate 90 mcg/actuation aerosol inhaler 1 - 2 puff inhalation Q4H PRN PRN Wheezing 10/20/13 [History Last Taken 10/26/13 1 - 2 PUFF] pramipexole 0.5 mg tablet 1 mg PO BID 10/05/16 [History Last Taken Unknown] pantoprazole 40 mg tablet,delayed release 40 mg PO DAILY 07/17/19 [History Last Taken Unknown] acetaminophen 325 mg tablet 650 mg PO Q4H PRN PRN Pain Score 1-5/10 07/24/19 [Rx Last Taken Unknown] doxepin 25 mg capsule 25 mg PO BID 11/05/20 [History Last Taken Unknown] fluticasone propionate 50 mcg/actuation nasal spray,suspension (Flonase Allergy Relief) 2 spray intranasal QDAY #15.8 mL 11/11/20 [Rx Last Taken Unknown] azelastine 137 mcg (0.1 %) nasal spray aerosol 2 spray intranasal BID #30 mL 11/28/20 [Rx Last Taken Unknown] budesonide 0.5 mg/2 mL suspension for nebulization 0.5 mg (2 mL) inhalation BID #120 mL 05/02/21 [Rx Last Taken Unknown] carboplatin 10 mg/mL intravenous solution continuous IV infusion 06/21/21 [History Last Taken Unknown] febuxostat 40 mg tablet (Uloric) 40 mg PO DAILY 06/21/21 [History Last Taken Unknown] ondansetron HCl 4 mg tablet (Zofran) 4 mg PO Q6H 06/21/21 [History Last Taken Unknown] paclitaxel protein-bound 100 mg intravenous suspension (Abraxane) mg .Route 06/21/21 [History Last Taken Unknown] Allergy/AdvReac Type Severity Reaction Status Date / Time No Known Allergies Allergy Verified 12/15/22 16:53 Family History Father Malignant neoplasm of lung Mother Hypertension Surgical History H/O kidney removal History of appendectomy History of back surgery History of bladder surgery History of thoracotomy History of tonsillectomy Social History Smoking Status: Former smoker quit date: 08/05/89 pack-years: 38 ROS ROS ED Constitutional Constitutional ED: Denies chills, fever(s) or sweats Eyes Eyes: Denies change in vision ENT ENT ED: Denies dysphagia or sore throat Cardiovascular Cardiovascular: Denies chest pain, leg edema, palpitations or racing heartbeat Respiratory/Chest Respiratory/Chest: Denies cough, dyspnea or dyspnea on exertion Gastrointestinal Gastrointestinal: Denies abdominal pain, diarrhea, nausea or vomiting Genitourinary Genitourinary ED: Denies dysuria, hematuria or urinary frequency Musculoskeletal Musculoskeletal: Reports back pain; Denies extremity pain or neck pain Integumentary Denies rash or wounds Neurologic Neurologic: Reports paresthesias; Denies headache(s) or weakness EXAM Physical Exam Const Vital Signs: 12/15/22 16:53 12/15/22 17:57 12/15/22 20:23 Temperature 97.9 F Temperature Source Oral Pulse Rate 97 91 Respiratory Rate 20 H 14 Respiratory Pattern Tachypnea Blood Pressure 132/86 H 145/92 H Blood Pressure Mean 101 109 Pulse Ox 95 95 Oxygen Delivery Method Room Air Room Air 12/15/22 21:08 Temperature Temperature Source Pulse Rate 80 Respiratory Rate 14 Respiratory Pattern Blood Pressure 143/96 H Blood Pressure Mean Pulse Ox 96 Oxygen Delivery Method Positive well nourished and well developed General Appearance ED: well developed and NAD HEENT Reports moist mucous membranes normocephalic and atraumatic Eyes PERRL, EOMs intact bilaterally and conjunctivae normal General Eye ED: Yes normal appearance of both eyes Neck no lymphadenopathy and supple General: Negative for tenderness Chest Wall Chest: Negative for tenderness Resp normal respiratory effort and normal air movement Effort and Inspection: symmetric chest movement; Negative for respiratory distress Cardio regular rate, regular rhythm and no murmurs Peripheral Pulses: pulses 2+ throughout GI normal to inspection, nondistended, normoactive bowel sounds and non-tender Palpation: Negative for guarding or rebound tenderness present Back/Spine no CVA tenderness and no thoracic nor lumbar tenderness Extremity Extremity Narrative: Right lower extremity: Ecchymosis to the inner aspect of the right knee, ecchymosis to the dorsal distal foot with no deformities. Neuro oriented x3 Neuro Narrative: Significant weakness to right lower extremity at hip flexors knee flexion extension 1 out of 5. He has strong dorsi and plantarflexion compared to the left side. Pulses are intact. Decreased sensation along the L3 and L4 dermatome. Decreased sensation lumbar L3-L4 on right compared to the left side. Midline scar of the lumbar spine noted. Sensorium / Orientation: awake and alert Skin Skin Narrative: See above MDM MDM MDM Narrative Medical decision making narrative: Interventions / MDM: Differential diagnosis: Spinal cord tumor, disc hernia Diagnosis considered but do not suspect: N/A My EKG interpretation: N/A Imaging independently reviewed and interpreted by myself: 4 view x-ray right knee: No fracture, 3 view x-ray right foot no fracture. MRI lumbar spine with and without contrast per radiologist L2-L3 severe disc disease these stenosis, post dual changes L3-L4 L4 of 5 and L5-S1. External documents reviewed: N/A Test considered but not ordered:N/A ED course: Patient with weakness right leg with paresthesias for the past week. History of multiple cancers currently being treated for lung cancer. Ecchymosis right knee and foot. X-ray imagings of taking of these areas. Will obtain MRI of the lumbar spine to rule out any potential metastatic tumors to the spinal cord which will require disposition to tertiary center. Re-evaluation: There is no central cord involvement patient is likely culprit is the L2-L3 disc herniation with stenosis causing weakness and paresthesias. Discussed results with the patient, he states he has a walker at home and he is get a wheelchair tomorrow therefore he does not want to be admitted for any rehab. His surgeon [address] Otto at [facility]. He states he would like to coordinate this with his doctors as an outpatient. Considered admission due to weakness and falls, however patient would like to go home. I spoke with patient's PCP Dr. Chandler, discussed findings and patient's wishes for outpatient follow-up and evaluation. Patient able to have resources at home stating he is picking up a wheelchair tomorrow. His is present. He will be seen on Saturday by his PCP. Disposition discussed with patient/family/significant other: Patient and significant other Case discussed with consulting clinician: PCP Dr. Chandler Lab Data Attestation: I reviewed the patient's lab results. Labs: Laboratory Results - last 24 hr 12/15/22 12/15/22 12/15/22 17:48 17:48 17:48 WBC 13.7 H RBC 4.54 L Hgb 14.2 Hct 44.1 MCV 97.1 H MCH 31.3 MCHC 32.2 RDW Std Deviation 56.9 H RDW Coeff of Crystal 16.0 H Plt Count 183 MPV 10.5 Immature Gran % (Auto) 2.300 H Neut % (Auto) 85.6 H Lymph % (Auto) 5.5 L Wake % (Auto) 6.0 Eos % (Auto) 0.3 Baso % (Auto) 0.3 Absolute Neuts (auto) 11.7 H Absolute Lymphs (auto) 0.75 L Nucleated RBC % 0 PT 13.1 INR 1.0 APTT 25.8 Sodium 142 Potassium 5.0 Chloride 109 H Carbon Dioxide 28.0 Anion Gap 5 BUN 50 H Creatinine 1.59 H Estim Creat Clear Calc 47.24 Est GFR (MDRD) Af Amer 55 L Est GFR (MDRD) Non-Af 45 L BUN/Creatinine Ratio 31.4 H Glucose 95 Calcium 8.3 L Radiography Diagnostic Testing: Clinical Impression(s) from Imaging Studies Knee X-Ray 12/15/22 17:33 IMPRESSION: Mild degenerative change. No acute fracture or other significant bony pathology Electronically Signed: Juan Alberto Stapleton MD at 20:16 EDT , Lumbar Spine MRI 12/15/22 17:33 IMPRESSION: No evidence for acute fracture or other significant bony pathology.. Postsurgical changes at L3-4, L4-5 and L5-S Mild spinal stenosis on the left at L3-4 secondary to asymmetric facet arthropathy and exaggerated by. More severe spinal stenosis at L2-3 secondary to disc disease, facet arthropathy and exaggerated by prominent posterior epidural fat Electronically Signed: Juan Alberto Stapleton MD at 20:15 EDT , Foot X-Ray 12/15/22 20:00 IMPRESSION: Mild degenerative change. No acute fracture or other significant bony pathology. Electronically Signed: Juan Alberto Stapleton MD at 20:19 EDT , Discharge Plan Triage Chief Complaint: Fall ED Provider: Derick Montilla Dx/Rx/DC Orders Clinical Impression: Right leg weakness, Lumbar disc herniation, Fall, Contusion of knee, right, Contusion of foot, right, Chronic kidney disease, stage 3, History of lung cancer, Renal cell carcinoma, Bladder carcinoma Instructions: ED Soft Tissue Contusion, ED Herniated Intervertebral Disk Prescriptions: No Action fluticasone propionate [Flonase Allergy Relief] 50 mcg/actuation spray,suspension 2 spray INTRANASAL QDAY Qty: 15.8 3RF Rx Instructions: administer into each nostril febuxostat [Uloric] 40 mg tablet 40 mg PO DAILY ondansetron HCl [Zofran] 4 mg tablet 4 mg PO Q6H Abraxane 100 mg suspension for reconstitution .Route Rx Instructions: CHEMO carboplatin 10 mg/mL solution continuous IV infusion albuterol sulfate 1 INHALER inhaler 1 - 2 puff INHALATION Q4H PRN PRN (Reason: Wheezing) pramipexole 0.5 MG tablet 1 mg PO BID pantoprazole 40 MG tablet 40 mg PO DAILY acetaminophen 325 MG tablet 650 mg PO Q4H PRN PRN (Reason: Pain Score 1-5/10) 0RF doxepin 25 MG capsule 25 mg PO BID azelastine 137 mcg (0.1 %) aerosol,spray 2 spray INTRANASAL BID Qty: 30 3RF Rx Instructions: administer into each nostril budesonide 0.5 mg/2 mL suspension for nebulization 0.5 mg inhalation BID Qty: 120 3RF Primary Care Provider: David Chandler Chi Referrals: David Chandler Chi, MD [Primary Care Provider] - 2 Days Activity Restrictions/Additional Instructions: MRI lumbar spine with and without contrast large disc herniation L2-L3 likely culprit of your leg symptoms. No spinal cord involvement. Use a walker for stability, discussed with Dr. Chandler, he will see you on Saturday. Discussed with Dr. Otto your neurosurgeon for outpatient evaluation. X-rays of your right knee and foot were negative for any fractures. Disposition Disposition: Home, Self Care Discharge Date/Time: 12/15/22 21:27
[2022-12-15 17:51] VITALS: BMI 27.8
[2022-12-15 17:56] LABS: Absolute Lymphocyte Count 0.75 X10^3/uL (0.83-4.51); Absolute Neutrophil Count 11.7 X10^3/uL (2.0-7.7); Basophil# 0.04 X10^3/uL; Basophil% 0.3 % (0-1); Eosinophil# 0.04 X10^3/uL; Eosinophils% 0.3 % (0-5); Hematocrit 44.1 % (40-54); Hemoglobin 14.2 g/dL (13.0-16.5); Lymphocyte # 0.75 X10^3/ul (0.83-4.51); Lymphocyte % 5.5 % (19-41); Mean Corp Hgb Conc 32.2 g/dL (32-36); Mean Corpuscular Hgb 31.3 pg (27.0-32.0); Mean Corpuscular Volume 97.1 fL (80-94); Mean Platelet Vol. 10.5 fl (6.2-12.0); Monocyte# 0.82 X10^3/uL; NRBC Flagged by Analyzer 0 % (0-5); Neutrophil % 85.6 % (47-70); Platelet Count 183 K/mm3 (150-450); RBC Distribution Width SD 56.9 fl (35.1-43.9); Red Blood Count 4.54 M/mm3 (4.6-6.2); White Blood Count 13.7 K/mm3 (4.4-11.0)
[2022-12-15 18:04] LABS: Prothrombin Time (Protime)PT. 13.1 SECONDS (11.7-14.9)
[2022-12-15 18:05] LABS: Partial Thromboplast Time 25.8 Seconds (24.1-36.2)
[2022-12-15 18:12] LABS: Anion Gap 5 (5-15); BUN 50 mg/dL (7-18); BUN/Creat Ratio 31.4 RATIO (10-20); Calcium,Total 8.3 mg/dL (8.5-10.1); Chloride 109 mmol/L (98-107); Creatinine, Serum 1.59 mg/dL (0.70-1.30); EST Glomerular Filtration Rate 45 mL/min (>60); Est Glom Filt Rate - Afr Amer 55 mL/min (>60); Estimated Creatinine Clearance 47.24 ml/min; Glucose 95 mg/dL (74-106); Sodium Level 142 mmol/L (136-145)
--- NOTE | 2022-12-15 20:00 | RAD_ITS ---
STUDY: X-RAY - RIGHT FOOT CLINICAL: Male, 76 years old. injury TECHNIQUE: 3 view(s) of the foot. COMPARISON: None. FINDINGS: Normal talus, calcaneus, and tarsal bones. Normal visualized subtalar, talonavicular, calcaneocuboid, tarsal and tarsometatarsal articulations. Normal metatarsi. Mild degenerative changes of the metatarsophalangeal joint of the great toe. Normal tibial and fibular sesamoid bones. Normal interphalangeal joint of the great toe. Normal phalanges of the great toe. Normal second through fifth metatarsophalangeal joints. Normal interphalangeal joints and phalanges of the lesser toes. Mild soft tissue swelling of the the dorsal surface of the foot. RAD/Foot min 3 Views IMPRESSION: Mild degenerative change. No acute fracture or other significant bony pathology. Electronically Signed: Juan Alberto Stapleton MD at 20:19 EDT ,
[2022-12-15 20:23] VITALS: BP 145/92; PULSE 91; RESP 14; O2SAT 95
[2022-12-15 21:08] VITALS: BP 143/96; PULSE 80; RESP 14; O2SAT 96
== END 2022-12-15 21:27 | disposition home or self-care (01) ==
PROVIDERS: Emergency Provider Emergency Medicine; PCP Family Medicine Geriatric Medicine; Visit Provider Emergency Medicine
DX: R29.898 Other symptoms and signs involving the musculoskeletal system (principal); J44.9 Chronic obstructive pulmonary disease, unspecified; N18.30 Chronic kidney disease, stage 3 unspecified; M51.26 Other intervertebral disc displacement, lumbar region; E78.5 Hyperlipidemia, unspecified; S80.01XA Contusion of right knee, initial encounter; S90.31XA Contusion of right foot, initial encounter; Z87.891 Personal history of nicotine dependence; G47.33 Obstructive sleep apnea (adult) (pediatric); Z85.51 Personal history of malignant neoplasm of bladder; Z85.528 Personal history of other malignant neoplasm of kidney; Z85.118 Personal history of other malignant neoplasm of bronchus and lung; W19.XXXA Unspecified fall, initial encounter
CPT/HCPCS: 72158; 73564; 73630; 80048; 85025; 85610; 85730; 96360; 99283; A9575; J7030; A4216

== ENCOUNTER 2023-01-10 11:41 | Outpatient (CLI) | payer MEDICARE, OTHER, SELFPAY ==
[2023-01-10 12:32] LABS: Absolute Lymphocyte Count 0.63 X10^3/uL (0.83-4.51); Absolute Neutrophil Count 5.7 X10^3/uL (2.0-7.7); Basophil# 0.04 X10^3/uL; Basophil% 0.6 % (0-1); Eosinophil# 0.03 X10^3/uL; Eosinophils% 0.4 % (0-5); Hemoglobin 14.3 g/dL (13.0-16.5); Lymphocyte # 0.63 X10^3/ul (0.83-4.51); Mean Corp Hgb Conc 31.8 g/dL (32-36); Mean Corpuscular Hgb 30.2 pg (27.0-32.0); Mean Corpuscular Volume 94.9 fL (80-94); Mean Platelet Vol. 10.4 fl (6.2-12.0); Monocyte# 0.42 X10^3/uL; NRBC Flagged by Analyzer 0 % (0-5); Neutrophil # 5.73 X10^3/uL (2.7-7.7); Platelet Count 213 K/mm3 (150-450); RBC Distribution Width CV 14.7 % (11.6-14.6); RBC Distribution Width SD 51.8 fl (35.1-43.9); Red Blood Count 4.74 M/mm3 (4.6-6.2)
[2023-01-10 12:38] LABS: International Normalized Ratio 0.9; Partial Thromboplast Time 27.3 Seconds (24.1-36.2); Prothrombin Time (Protime)PT. 12.6 SECONDS (11.7-14.9)
[2023-01-10 13:05] LABS: ALB/GLOB Ratio 0.9 RATIO (0.9-2.4); AST(SGOT) 28 U/L (15-37); Alanine Aminotransfer ALT/SGPT 39 U/L (16-61); Albumin, Serum 3.4 g/dL (3.2-5.0); Alkaline Phosphatase 85 U/L (45-117); Anion Gap 6 (5-15); BUN 52 mg/dL (7-18); BUN/Creat Ratio 33.3 RATIO (10-20); Calcium,Total 9.5 mg/dL (8.5-10.1); Chloride 105 mmol/L (98-107); Creatinine, Serum 1.56 mg/dL (0.70-1.30); EST Glomerular Filtration Rate 46 mL/min (>60); Est Glom Filt Rate - Afr Amer 56 mL/min (>60); Globulin 3.6 g/dL (2.2-4.2); Glucose 94 mg/dL (74-106); Sodium Level 138 mmol/L (136-145)
== END 2023-01-10 23:59 | disposition home or self-care (01) ==
LOC: LAB 11:43
PROVIDERS: PCP Family Medicine Geriatric Medicine; Referring Provider Family Medicine Geriatric Medicine; Visit Provider Family Medicine Geriatric Medicine
DX: Z01.818 Encounter for other preprocedural examination (principal)
CPT/HCPCS: 36415; 80053; 85025; 85610; 85730

== ENCOUNTER 2023-01-28 10:53 | Observation (INO) | payer MEDICARE, OTHER, SELFPAY ==
[2023-01-18 10:34] LABS: Magnesium 2.1 mg/dL (1.6-2.6)
[2023-01-18 11:17] LABS: HIV - WCH Non-Reactive (Nonreactive); Hepatitis B Surface Antibody Non-Reactive; Hepatitis C Antibody Non-Reactive (Nonreactive)
[2023-01-19 06:09] LABS: Hepatitis A AB, Total Negative (Negative)
--- NOTE | 2023-01-25 13:49 | PCM.HP.BLA ---
History and Physical MR#: [id number] Acct: [id number] Name:? CHECO JOHNSON Rep #: [id number] : 1945 ? ? Provider: Dr. Alexander Reza, DO Age/Sex:? 76/M ? ? Location: [facility] [place] Status: Signed Intake Vital Signs ? 12/16/2315:53 12/17/2313:22 Height 6 ft 3 in 6 ft 3 in Weight: ? 226 lb 6 oz BMI ? 28.3 Intake Visit Reasons:?LUMBAR SPINE Is patient in pain?: Yes Pain scale (1-10): 1 Allergies No Known Allergies Allergy (Verified 12/17/22 14:22) Medications albuterol sulfate 90 mcg/actuation aerosol inhaler 1 - 2 puff inhalation Q4H PRN PRN Wheezing 10/20/13 [History Confirmed 12/17/22] pramipexole 0.5 mg tablet 1 mg PO BID 10/05/16 [History Confirmed 12/17/22] pantoprazole 40 mg tablet,delayed release 40 mg PO DAILY 07/17/19 [History Confirmed 12/17/22] acetaminophen 325 mg tablet 650 mg PO Q4H PRN PRN Pain Score 1-5/10 07/24/19 [Rx Confirmed 12/17/22] doxepin 25 mg capsule 25 mg PO BID 11/05/20 [History Confirmed 12/17/22] fluticasone propionate 50 mcg/actuation nasal spray,suspension (Flonase Allergy Relief) 2 spray intranasal QDAY #15.8 mL 11/11/20 [Rx Confirmed 12/17/22] azelastine 137 mcg (0.1 %) nasal spray aerosol 2 spray intranasal BID #30 mL 11/28/20 [Rx Confirmed 12/17/22] budesonide 0.5 mg/2 mL suspension for nebulization 0.5 mg (2 mL) inhalation BID #120 mL 05/02/21 [Rx Confirmed 12/17/22] carboplatin 10 mg/mL intravenous solution continuous IV infusion 06/21/21 [History Confirmed 12/17/22] febuxostat 40 mg tablet (Uloric) 40 mg PO DAILY 06/21/21 [History Confirmed 12/17/22] ondansetron HCl 4 mg tablet (Zofran) 4 mg PO Q6H 06/21/21 [History Confirmed 12/17/22] paclitaxel protein-bound 100 mg intravenous suspension (Abraxane) mg .Route 06/21/21 [History Confirmed 12/17/22] PFSH Medical History? Bladder cancer Bladder carcinoma Chronic back pain Chronic gout Chronic kidney disease, stage 3 CKD (chronic kidney disease) stage 3, GFR 30-59 ml/min COPD (chronic obstructive pulmonary disease) Encounter for screening for COVID-19 GERD (gastroesophageal reflux disease) Hyperlipidemia Hypogonadism Lung cancer LUIS CARLOS (obstructive sleep apnea) Pulmonary embolism Renal cancer Renal cell carcinoma Surgical History? H/O kidney removal History of appendectomy History of back surgery History of bladder surgery History of thoracotomy History of tonsillectomy Family History? Father Malignant neoplasm of lungMother Hypertension Social History? Smoking Status:? Former smoker quit date: 08/05/89 pack-years: 38 HPI LUMBAR SPINE Details: Parts of this documentation were recorded by a scribe, this documentation accurately reflects the service provided and the decisions made by me, Dr. Alexander Reza, DO 12/17/22 [id number]. CHECO JOHNSON is a 76 year old M here today NEW patient for lower back pain. States that he has had lower back pain for about 2 months without any known injury. States that Dr. Otto did a disc fusion 5-6 years ago. Patient does wear a back brace and ambulate with a walker. The brace helps him stand up straight but that is all it does for him. He did have pain that went down the front of his right leg. He has numbness and swelling in the legs and feet but the right side is worse. States that when he takes a wrong step it increases his pain and he has fell a few times due to that. He has used ice/heat for the pain along with taking Tylenol and notes that is all he is allowed to take. Denies having any injection in the low back. States that he was doing PT for 4-6 weeks up until december. Patient is also doing Chemotherapy for a bladder carcinoma. He also had an MRI on 5/13/23. We will get x-rays today. Basically Mr. Johnson complaint today is that of weakness of the right quadriceps mechanism.? This started a few weeks ago but got dramatically worse a week and a half ago.? First started he was in physical therapy and they were able to make it stronger and stronger as time went on however this started he all of a sudden fell over because he could not stand up because of his weak quadriceps mechanism on the right side.? He does not really have all them that much low back pain per se.? Dr. Otto's surgery did wonders for him and all his leg weakness and pain that he had in those days went away.? He is done very well with his 3 level fusion.? He had a recent MRI scan done. On examination it is noted that he has marked weakness of the right quad with marked atrophy of the right quad compared to the left.? He has absence of both Achilles reflexes in both patellar reflexes.? He has no long tract signs.? Clonus is absent Babinski's are downgoing. I reviewed the MRI scan of the lumbar spine.? At L2-3 the level above the fusion he has a herniated disc more to the right side consistent with his right-sided L3 and/or L4 radicular symptoms and muscle atrophy.? He undoubtedly will need surgical decompression on that right side.? I explained to him that it would be a very difficult surgery because I will be fighting scar tissue and plus laminectomies at that level are tougher because it is narrower and there is possibility of destabilization of the lumbar vertebra.? The surgery at this point is not really for pain but rather because of the weakness.? We do not want his quads to continue atrophy and and continue getting weaker because if it happens he will not be able to walk at all.? He is currently walking with a walker.? We will get him on schedule as soon as we reasonably can get him on.? I will see him again at preop. Coding Level of Care Code Off vis,new,level 3 Diagnoses Herniated nucleus pulposus, L2-3 right? M51.26
[2023-01-28] VITALS (12 sets, daily range): BP systolic 108–139; BP diastolic 59–87; PULSE 67–90; RESP 14–18; TEMP 36.3–36.8; O2SAT 95–100; BMI 27.7
[2023-01-28] MEDS: Magnesium 1 GM over 15 mins IV (06:10)
[2023-01-28] MEDS: Lactated Ringers 1,000 ML 15 ML IV ×2 (06:24→08:55)
[2023-01-28] MEDS: Acetaminophen 500 MG Tablet 1000 MG PO ×3 (06:25→21:41)
--- NOTE | 2023-01-28 06:30 | RAD_ITS ---
STUDY: X-RAY - LUMBAR SPINE REASON FOR EXAM: Male, 77 years old. LAMINECTOMY DISCECTOMY L2-3, RIGHT TECHNIQUE: 1 view(s) of the lumbar spine were obtained. COMPARISON: None FINDINGS: The localization instrument is seen posterior to the L2-L3 disc space level. RAD/Spine 1 View Any Level IMPRESSION: The localization instrument is seen posterior to the L2-L3 disc space level. Electronically Signed: López Palafox MD at 12:24 EDT ,
[2023-01-28] MEDS: Ipratropium/Albuterol Sulfate 3 ML AMPUL.NEB INHALATION (07:13)
[2023-01-28] MEDS: Cefazolin 2 GM in 0.9% Normal Saline 100 ML IV (07:30)
[2023-01-28 08:18] LABS: Bedside Glucose 153 mg/dL (74-106)
[2023-01-28] MEDS: THROMBIN (RECOMBINANT) 20,000 UNIT VIAL 20000 UNIT TOPICAL (08:45)
--- NOTE | 2023-01-28 11:00 | OP.PCM_ITS ---
Report of Operation Description of Surgical Findings:: Preoperative diagnosis: Herniated disc L2-3 on the right Postoperative diagnosis: The same Procedure: Lumbar laminectomy the opening of lateral recess L2-3 on the right above old 3 level fusion with instrumentation CPT code 53384 Surgeon: Dr. Reza Roller Stitcher: Brandy AUGUST Anesthesia: General endotracheal by [facility] EBL: Less than 30 cc Drains: None Complications: None Procedure: Patient was taken to the OR where he was placed under general endotracheal anesthesia. A Sinclair catheter was inserted. Neuro monitoring placed their leads on the patient. The patient was then placed in prone position on the Ramy frame. After proper positioning with care to protect his bony prominences his genitalia the brachial plexus bilaterally ulnar nerves of both elbows and the cervical spine and facial features the back was prepped and draped standard fashion note this patient had had a previous 3 level fusion including L3-4, L4-5, and L5-S1. This was all done with pedicle fixation. The apparent herniation or what seemed like a herniation on the right side at L2-3 just above the fusion. Note that we had to fight scar tissue throughout the surgery because of the previous surgery. We then opened the skin in the area that we thought would be L2-3 subcutaneous tissues were incised length of the skin incision. I opened the lumbar fascia to the right of the spinous processes using cautery. An intraoperative x-ray was taken to confirm that we were indeed at the proper level with a marker that we left in place. This was further marked. I very carefully had to remove soft tissues and The paravertebral muscles off of the lamina of L2 all the way out over the facet. I's release ligamentum flavum off the underside of the lamina of L2 note that this was a difficult because of all the old scar tissue throughout the area. I then performed a hemilaminectomy with 45 degree Kerrison rongeurs. I also release ligamentum flavum off the underside of the lamina of L3. The top of L3 was likewise removed with a 45 degree Kerrison rongeurs. I then began the difficult process of removing the ligamentum flavum. I used Kerrison rongeurs to do that. Went all the way and open the lateral recess. I then retracted the dura and identified the disc at the disc level however there were no disc seen below making us think that the very thickened ligamentum flavum might in fact been what we saw on the MRI scan. It regardless the lateral recess was completely open after removal of all the ligamentum flavum and opening of the lateral recess. I then used a hockey-stick to probe the exit of the L3 nerve root. The L3 nerve root had no more pressure on it whatsoever. I checked it anteriorly in the foramen and posteriorly in the foramen with no pressure at all on the nerve. Decision to leave the disc alone was made as the goal of the surgery was already accomplished by decompressing the L3 nerve root. Note that thorough irrigation was carried out in the course of the case repeatedly every 15 or so minutes to prevent infection. We did that 1 last time. Note that we had excellent hemostasis by this point we placed an amniotic membrane directly over the dura to prevent adhesions in the future. Gelfoam was placed over the top of that. There was no need for a drain. Post the lumbar fascia using [id number] suture with #1 Vicryl followed by closure of subcutaneous tissues with 2-0 Vicryl and interrupted fashion. The skin was approximated using skin clips.. Sterile dressings were then applied. The patient was then recovered in the OR and moved to his hospital bed in satisfactory condition. He was then taken to recovery. This is the end of operative summary on Cale Johnson. This is Dr. Reza dictating.
[2023-01-28] MEDS: Lactated Ringers 1,000 ML 100 ML IV (15:38)
[2023-01-28] MEDS: Cefazolin 1 GM/50 ML BAG IV (15:38)
[2023-01-28] MEDS: Erythromycin Base 1 OPTH.TUBE 1 APPLIC EACH EYE (21:41)
[2023-01-28] MEDS: Pramipexole Di-HCl 0.5 MG Tablet PO (21:41)
[2023-01-28] MEDS: Doxepin Hcl 25 MG Capsule PO (21:42)
[2023-01-28] MEDS: Febuxostat 40 MG TABLET PO (21:42)
[2023-01-28] MEDS: Pantoprazole Sodium 40 MG Tablet PO (21:42)
[2023-01-29 00:09] VITALS: BP 117/75; PULSE 81; RESP 16; TEMP 36.6; O2SAT 98
[2023-01-29] MEDS: Cefazolin 1 GM/50 ML BAG IV (00:15)
[2023-01-29 04:09] VITALS: BP 137/78; PULSE 66; RESP 16; TEMP 36.6; O2SAT 96
[2023-01-29] MEDS: Acetaminophen 500 MG Tablet 1000 MG PO (05:29)
[2023-01-29] MEDS: Lactated Ringers 1,000 ML 100 ML IV (05:29)
[2023-01-29 06:05] LABS: Absolute Lymphocyte Count 0.65 X10^3/uL (0.83-4.51); Basophil# 0.02 X10^3/uL; Basophil% 0.2 % (0-1); Eosinophil# 0.02 X10^3/uL; Eosinophils% 0.2 % (0-5); Hematocrit 39.7 % (40-54); Hemoglobin 12.6 g/dL (13.0-16.5); Lymphocyte # 0.65 X10^3/ul (0.83-4.51); Lymphocyte % 6.2 % (19-41); Mean Corp Hgb Conc 31.7 g/dL (32-36); Mean Corpuscular Hgb 30.2 pg (27.0-32.0); Mean Corpuscular Volume 95.2 fL (80-94); Monocyte# 0.76 X10^3/uL; Monocyte% 7.2 % (0-10); NRBC Flagged by Analyzer 0 % (0-5); Neutrophil # 8.98 X10^3/uL (2.7-7.7); Neutrophil % 85.2 % (47-70); Platelet Count 195 K/mm3 (150-450); RBC Distribution Width CV 14.6 % (11.6-14.6); RBC Distribution Width SD 51.7 fl (35.1-43.9); Red Blood Count 4.17 M/mm3 (4.6-6.2); White Blood Count 10.5 K/mm3 (4.4-11.0)
[2023-01-29 06:53] LABS: Anion Gap 4 (5-15); BUN 22 mg/dL (7-18); BUN/Creat Ratio 14.3 RATIO (10-20); Calcium,Total 9.1 mg/dL (8.5-10.1); Chloride 107 mmol/L (98-107); Creatinine, Serum 1.54 mg/dL (0.70-1.30); EST Glomerular Filtration Rate 47 mL/min (>60); Est Glom Filt Rate - Afr Amer 57 mL/min (>60); Estimated Creatinine Clearance 48.01 ml/min; Glucose 100 mg/dL (74-106); Potassium 4.2 mmol/L (3.5-5.1); Sodium Level 139 mmol/L (136-145)
[2023-01-29 07:58] VITALS: BP 122/91; PULSE 72; RESP 18; TEMP 36.8; O2SAT 95
[2023-01-29] MEDS: 0.9% Saline Lock 10 ML Syringe IV (08:02)
[2023-01-29] MEDS: Pramipexole Di-HCl 0.5 MG Tablet PO (08:05)
--- NOTE | 2023-01-29 09:00 | PCM.PN.HOSP ---
Subjective Subjective Doing well, no issues overnight Objective Data Objective Data Vital Signs: Vital Signs Temp Pulse Resp BP Pulse Ox O2 Del Method O2 Flow Rate 98.2 F 72 18 122/91 H 95 Room Air 4 01/29/23 07:58 01/29/23 07:58 01/29/23 07:58 01/29/23 07:58 01/29/23 07:58 01/29/23 07:58 01/28/23 12:42 FiO2 4 01/28/23 12:21 Oxygen Flow Rate (L/min) 4 Oxygen Delivery Method Room Air Weight: 222 lb 0.088 oz Body Mass Index (BMI) 27.7 Intake & Output: Intake and Output for Last 24 Hours 01/28/23 01/29/23 01/30/23 03:59 03:59 03:59 Intake Total 3212.00 / 3212.00 653.33 / 653.33 Output Total 1725 / 1725 650 / 650 Balance 1487.00 / 1487.00 3.33 / 3.33 Lab / Micro Data Result Diagrams: 01/29/23 05:34 01/29/23 05:34 Labs: Laboratory Results - last 24 hr 01/29/23 05:34: WBC 10.5, RBC 4.17 L, Hgb 12.6 L, Hct 39.7 L, MCV 95.2 H, MCH 30.2, MCHC 31.7 L, RDW Std Deviation 51.7 H, RDW Coeff of Crystal 14.6, Plt Count 195, MPV 10.0, Immature Gran % (Auto) 1.000 H, Neut % (Auto) 85.2 H, Lymph % (Auto) 6.2 L, [place] % (Auto) 7.2, Eos % (Auto) 0.2, Baso % (Auto) 0.2, Absolute Neuts (auto) 9.0 H, Absolute Lymphs (auto) 0.65 L, Nucleated RBC % 0 01/29/23 05:34: Sodium 139, Potassium 4.2, Chloride 107, Carbon Dioxide 28.0, Anion Gap 4 L, BUN 22 H, Creatinine 1.54 H, Estim Creat Clear Calc 48.01, Est GFR (MDRD) Af Amer 57 L, Est GFR (MDRD) Non-Af 47 L, BUN/Creatinine Ratio 14.3, Glucose 100, Calcium 9.1 Micro: Microbiology 01/18/23 09:09 Swab (Method) Nasal Screen MRSA/MSSA - Final Radiography Diagnostic Testing: Radiology Impression Spine X-Ray 01/28/23 06:30 IMPRESSION: The localization instrument is seen posterior to the L2-L3 disc space level. Electronically Signed: López Palafox MD at 12:24 EDT , Physical Exam Narrative General: Alert, Oriented x3, Cooperative, No apparent distress HEENT: Atraumatic, PERRLA, EOMI, Normocephalic Oral: Moist Mucosa Neck: Supple, No JVD Lungs: Clear to auscultation, Normal air movement, No rhonchi, No wheeze, No rales Cardiovascular: Regular rate, Regular Rhythm, Normal S1, Normal S2, No murmurs Abdomen: Soft, Non Tender, Non-Distended, No Hepato-splenomegaly Extremities: No edema, Capillary Refill Less than 3 Seconds Skin: Dressing intact Musculoskeletal: No Tenderness to Palpation of Joints or Extremities Neurological: Cranial nerves II-XII grossly intact, Motor Exam 5/5 strength throughout, Sensory exam intact to light touch and pain Psych/Mental Status: Normal Affect, Appropriate Assessment & Plan Assessment/Plan (1) Status post lumbar laminectomy: PLAN: Plan 1. Herniated disc L2-L3 on the right status post lumbar laminectomy ? Pain management per primary ? Lab work is unremarkable today ? Medically stable for discharge 2. GERD ? Stable ? Continue with PPI 3. Gout ? Stable ? Continue home medications 4. COPD ? Not in exacerbation ? Continue with home and Sneha Charges/Coding Visit Charges Office Visits / Consults: [id number] OV L3 New
[2023-01-29 10:23] VITALS: O2SAT 97
--- NOTE | 2023-01-29 11:06 | CASEMGMT ---
RAFFI BRODERICK Assessment: Face to Face with pt for initial transition planning/care coordination assessment. RN DAVIE introduced self and role at [facility], pt voices understanding and consents to assessment. Pt is A/O x4 and answers all questions appropriately at this time. Pt sitting up in chair in no distress. Care providers, pharmacy, and demographics verified/updated. Admitting Dx: lumbar laminectomy discectomy L2-3 right PCP:Ramesh Specialists: Juaquin, ortho; Real, onc; Earle, pod; sina Larson Preferred Pharmacy: [facility] Pres[facility] Benefit: yes LNOK: Lizette Johnson, Living Arrangements: Pt lives with in a single story home with 3 steps to enter with a rail. Pt reports he is I in ADL's and denies concerns at home. Transportation: Pt has not driven d/t numbness in leg. Pt or son provides transportation to medical appts. 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 Pt has had [facility] HHC in the past and denies SNF stays. Pt states no concerns with going home at time of dc. Pt states no further concerns/needs. CM to follow. Advised pt to ask CM if any further question/concerns/needs arise, voices understanding. Pt Goal: Home Plan: Home
--- NOTE | 2023-01-29 11:18 | CASEMGMT ---
RAFFI CM in to discuss SHARIF form with patient. RN CM explained SHARIF form, patient voiced understanding. Pt signed form and filed in chart. Pt provided with a copy of signed SHARIF form. Patient had no further questions or concerns at this time.
--- NOTE | 2023-01-29 11:48 | DS.PCM_ITS ---
Providers Date of Admission: 01/28/23 Primary Care Physician: Dr. David Chandler MD Attending Physician: This is discharge summary on Cale Johnson. Mr. Johnson was admitted yesterday and underwent lumbar laminectomy at the L2-3 level. He tolerated the procedure well . This morning he reports that his anterior thigh pain is gone and his quad and hip flexor is already stronger. He is using the walker here at the hospital however he has 2 walkers at home. His back does not feel bad at all. On examination he is neurologically intact and he does indeed have better quad strength and hip flexor strength on the right than he did prior to surgery. He was given postop laminectomy protocol regarding his activities. He already has an appointment to see me in the office. He states that all he needs for pain is Tylenol and he does not want any opioid medication. This is the end of discharge summary on Cale Johnson. This is Dr. Reza dictating. Consultations 01/28/23 12:10 Consult: Hospitalist Routine Consulting Provider: Dami Herring Reason for Consult: Medical Management EMERGENT Consult: No MD Notified: Yes Date Notified: 01/28/23 Time Notified: 12:11 Method of Notification: Verbal Reason For Visit: LUMBAR LAMINECTOMY DISCECTOMY L2-3 RIGHT Diagnosis Discharge Diagnosis (1) Status post lumbar laminectomy: Status: Acute Code(s): Z98.890 - Other specified postprocedural states Medications at Discharge Home Medications albuterol sulfate 90 mcg/actuation aerosol inhaler 1 - 2 puff inhalation Q4H PRN PRN Wheezing 10/20/13 pramipexole 0.5 mg tablet 0.5 mg PO BID RLS 10/05/16 pantoprazole 40 mg tablet,delayed release 40 mg PO QHS 07/17/19 acetaminophen 325 mg tablet 650 mg PO Q4H PRN PRN Pain Score 1-5/10 07/24/19 doxepin 25 mg capsule 25 mg PO QHS SLEEP 11/05/20 budesonide 0.5 mg/2 mL suspension for nebulization 0.5 mg (2 mL) inhalation BID #120 mL 05/02/21 febuxostat 40 mg tablet (Uloric) 40 mg PO QHS GOUT 06/21/21 ondansetron HCl 4 mg tablet (Zofran) 4 mg PO Q6H PRN Nausea 06/21/21 prednisone 5 mg tablet 7.5 mg PO DAILY 01/14/23 vitamin [id number] B1 1,000 mcg-100 mg/mL injection solution 1 ml IM .Q2W 01/14/23 erythromycin 5 mg/gram (0.5 %) eye ointment 1 applic EACH EYE BID 01/28/23 Weight / BMI Weight Weight: 222 lb 0.088 oz Body Mass Index (BMI) 27.7 ABG / Lab / Microbiology Data Result Diagrams: 01/29/23 05:34 01/29/23 05:34 Laboratory: Laboratory Results - last 24 hr 01/29/23 05:34: WBC 10.5, RBC 4.17 L, Hgb 12.6 L, Hct 39.7 L, MCV 95.2 H, MCH 30.2, MCHC 31.7 L, RDW Std Deviation 51.7 H, RDW Coeff of Crystal 14.6, Plt Count 195, MPV 10.0, Immature Gran % (Auto) 1.000 H, Neut % (Auto) 85.2 H, Lymph % (Auto) 6.2 L, [place] % (Auto) 7.2, Eos % (Auto) 0.2, Baso % (Auto) 0.2, Absolute Neuts (auto) 9.0 H, Absolute Lymphs (auto) 0.65 L, Nucleated RBC % 0 01/29/23 05:34: Sodium 139, Potassium 4.2, Chloride 107, Carbon Dioxide 28.0, Anion Gap 4 L, BUN 22 H, Creatinine 1.54 H, Estim Creat Clear Calc 48.01, Est GFR (MDRD) Af Amer 57 L, Est GFR (MDRD) Non-Af 47 L, BUN/Creatinine Ratio 14.3, Glucose 100, Calcium 9.1 Microbiology: Microbiology 01/18/23 09:09 Swab (Method) Nasal Screen MRSA/MSSA - Final Radiography Diagnostic Testing: Radiology Impression Spine X-Ray 01/28/23 06:30 IMPRESSION: The localization instrument is seen posterior to the L2-L3 disc space level. Electronically Signed: López Palafox MD at 12:24 EDT , D/C Instructions May shower in (days): 5 May resume sexual activity in: 4-6 weeks Weight Bearing Status: Full weight bearing Meaningful Use Info Meaningful Use Diagnoses (Choose all that apply): None applicable Discharge Plan Admission Admit Date/Time: 01/28/23 10:53 Primary Reason for Your Visit: back surgery Attending Provider: Alexander Reza Primary Care Provider: David Chandler Chi Consulting Providers: Ralph Shine ; Dami Herring Discharge Orders/Prescriptions Prescriptions: No Action febuxostat [Uloric] 40 mg tablet 40 mg PO QHS ondansetron HCl [Zofran] 4 mg tablet 4 mg PO Q6H PRN (Reason: Nausea) albuterol sulfate 1 INHALER inhaler 1 - 2 puff INHALATION Q4H PRN PRN (Reason: Wheezing) pramipexole 0.5 MG tablet 0.5 mg PO BID pantoprazole 40 MG tablet 40 mg PO QHS acetaminophen 325 MG tablet 650 mg PO Q4H PRN PRN (Reason: Pain Score 1-5/10) 0RF doxepin 25 MG capsule 25 mg PO QHS vitamin [id number] B1 1,000-100 mg/mL Solution 1 ml IM .Q2W prednisone 5 mg Tablet 7.5 mg PO DAILY erythromycin 5 mg/gram (0.5 %) ointment 1 applic EACH EYE BID Rx Instructions: ADDED TO PT'S HOME MED LIST budesonide 0.5 mg/2 mL suspension for nebulization 0.5 mg inhalation BID Qty: 120 3RF Referrals / Follow Up: David Chandler Chi, MD [Primary Care Provider] - Disposition Disposition (needs filled in before D/C Order can be placed): Home, Self Care
--- NOTE | 2023-01-29 11:58 | PHA.DC.MR ---
Pharmacy Service has performed discharge medication reconciliation for this patient. The patient's discharge medication list was reviewed for discrepancies and discrepancies were resolved. Home Medications albuterol sulfate 90 mcg/actuation aerosol inhaler 1 - 2 puff inhalation Q4H PRN PRN Wheezing 10/20/13 pramipexole 0.5 mg tablet 0.5 mg PO BID RLS 10/05/16 pantoprazole 40 mg tablet,delayed release 40 mg PO QHS 07/17/19 acetaminophen 325 mg tablet 650 mg PO Q4H PRN PRN Pain Score 1-5/10 07/24/19 doxepin 25 mg capsule 25 mg PO QHS SLEEP 11/05/20 budesonide 0.5 mg/2 mL suspension for nebulization 0.5 mg (2 mL) inhalation BID #120 mL 05/02/21 febuxostat 40 mg tablet (Uloric) 40 mg PO QHS GOUT 06/21/21 ondansetron HCl 4 mg tablet (Zofran) 4 mg PO Q6H PRN Nausea 06/21/21 prednisone 5 mg tablet 7.5 mg PO DAILY 01/14/23 vitamin X83-[id number] B1 1,000 mcg-100 mg/mL injection solution 1 ml IM .Q2W 01/14/23 erythromycin 5 mg/gram (0.5 %) eye ointment 1 applic EACH EYE BID 01/28/23
[2023-01-29 12:30] VITALS: BP 119/79; PULSE 85; RESP 18; TEMP 36.9; O2SAT 96
== END 2023-01-29 13:06 | disposition home or self-care (01) ==
LOC: SDC 11:41 → MS3 11:41
PROVIDERS: Anesthesiology; Family Medicine; Admitting Provider Orthopaedic Surgery; PCP Family Medicine Geriatric Medicine; Referring Provider Orthopaedic Surgery; Visit Provider Orthopaedic Surgery
PROC: (CPT 63030; principal; 2023-01-28 07:00)
DX: M51.26 Other intervertebral disc displacement, lumbar region (principal); J44.9 Chronic obstructive pulmonary disease, unspecified; C67.9 Malignant neoplasm of bladder, unspecified; N18.30 Chronic kidney disease, stage 3 unspecified; Z87.891 Personal history of nicotine dependence; K21.9 Gastro-esophageal reflux disease without esophagitis; M10.9 Gout, unspecified; Z79.899 Other long term (current) drug therapy; G47.33 Obstructive sleep apnea (adult) (pediatric); E78.5 Hyperlipidemia, unspecified
CPT/HCPCS: 63042; 00630; 36415; 72020; 80048; 82962; 83735; 85025; 86703; 86706; 86708; 86803; 87081; 94640; 94668; 96361; 96365; 96366; 97116; 97162; 97530; 99221; J7120; A4216; G0378; J2405; J3475

== ENCOUNTER → 2023-04-17 | Outpatient (CLI) | payer MEDICARE, OTHER, SELFPAY ==
[2023-04-17 11:03] LABS: Absolute Neutrophil Count 3.8 X10^3/uL (2.0-7.7); Basophil# 0.04 X10^3/uL; Basophil% 0.7 % (0-1); Eosinophil# 0.27 X10^3/uL; Eosinophils% 4.8 % (0-5); Hematocrit 39.7 % (40-54); Lymphocyte % 17.8 % (19-41); Mean Corp Hgb Conc 32.7 g/dL (32-36); Mean Corpuscular Hgb 29.9 pg (27.0-32.0); Mean Corpuscular Volume 91.3 fL (80-94); Mean Platelet Vol. 10.5 fl (6.2-12.0); Monocyte# 0.49 X10^3/uL; Monocyte% 8.7 % (0-10); NRBC Flagged by Analyzer 0 % (0-5); Neutrophil # 3.76 X10^3/uL (2.7-7.7); Neutrophil % 67.1 % (47-70); Platelet Count 174 K/mm3 (150-450); RBC Distribution Width CV 13.7 % (11.6-14.6); RBC Distribution Width SD 46.1 fl (35.1-43.9); Red Blood Count 4.35 M/mm3 (4.6-6.2); White Blood Count 5.6 K/mm3 (4.4-11.0)
[2023-04-17 12:07] LABS: Vitamin D,25 Hydroxy 42.9 ng/mL
[2023-04-17 12:14] LABS: AST(SGOT) 72 U/L (15-37); Alanine Aminotransfer ALT/SGPT 101 U/L (16-61); Albumin, Serum 3.5 g/dL (3.2-5.0); Alkaline Phosphatase 190 U/L (45-117); Anion Gap 6 (5-15); BUN 30 mg/dL (7-18); BUN/Creat Ratio 15.8 RATIO (10-20); Calcium,Total 8.9 mg/dL (8.5-10.1); Chloride 107 mmol/L (98-107); EST Glomerular Filtration Rate 37 mL/min (>60); Est Glom Filt Rate - Afr Amer 44 mL/min (>60); Globulin 3.6 g/dL (2.2-4.2); Glucose 120 mg/dL (74-106); Potassium 4.6 mmol/L (3.5-5.1); Protein, Total 7.1 g/dL (6.4-8.2); Sodium Level 139 mmol/L (136-145); Thyroid Stim Hormone (TSH) 2.37 uIU/mL (0.358-3.74); Uric Acid 8.4 mg/dL (3.5-7.2)
== END | disposition home or self-care (01) ==
LOC: POLAB3 10:47
PROVIDERS: PCP Family Medicine Geriatric Medicine; Visit Provider Family Medicine Geriatric Medicine
DX: M10.9 Gout, unspecified (principal); R53.83 Other fatigue; E55.9 Vitamin D deficiency, unspecified
CPT/HCPCS: 36415; 80053; 82306; 84443; 84550; 85025

== ENCOUNTER → 2023-04-18 | Outpatient (CLI) | payer MEDICARE, OTHER, SELFPAY ==
[2023-04-19 04:07] LABS: HEPATITIS B SURFACE AG Negative (Negative); Hep C Antibodies Non Reactive (Non Reactive); Hepatitis A IgM Antibody Negative (Negative); Hepatitis B Core AB IgM Negative (Negative)
== END | disposition home or self-care (01) ==
LOC: POLAB3 11:38
PROVIDERS: PCP Family Medicine Geriatric Medicine; Visit Provider Family Medicine Geriatric Medicine
DX: R74.8 Abnormal levels of other serum enzymes (principal); R53.83 Other fatigue
CPT/HCPCS: 36415; 80074

== ENCOUNTER → 2023-04-24 | Outpatient (CLI) | payer MEDICARE, OTHER, SELFPAY ==
--- NOTE | 2023-04-24 10:55 | US_ITS ---
EXAM: US ABDOMEN LIMITED, RIGHT UPPER QUADRANT CLINICAL INDICATION: ABN AST AND ALT TECHNIQUE: Real-time ultrasound of the right upper quadrant with image documentation. COMPARISON: CT chest, 11/05/2020 FINDINGS: LIVER: Diffuse increased echogenicity throughout the liver with overall coarse echotexture. No intrahepatic biliary ductal dilation. No focal hepatic abnormalities are identified. GALLBLADDER: 4 mm gallbladder polyp. No shadowing gallstone. No gallbladder wall thickening is demonstrated. No pericholecystic fluid. Negative sonographic Jonas''s sign. COMMON BILE DUCT: Normal as visualized. The proximal common bile duct is within normal limits for the patient''s age. PANCREAS: Portions of the pancreas are are secured by bowel gas. The remainder the pancreas appears normal. No pancreatic ductal dilatation. RIGHT KIDNEY: Status post right nephrectomy. No focal lesion or perinephric collection is demonstrated. US/Abdomen Limited IMPRESSION: 1. Apparent fatty liver. 2. 4 mm gallbladder polyp. 3. Status post right nephrectomy. 4. No acute findings. Electronically Signed: Wes Parra DO at 20:10 EDT ,
== END | disposition home or self-care (01) ==
LOC: US 10:54
PROVIDERS: PCP Family Medicine Geriatric Medicine; Referring Provider Family Medicine Geriatric Medicine; Visit Provider Family Medicine Geriatric Medicine
DX: R74.8 Abnormal levels of other serum enzymes (principal)
CPT/HCPCS: 76705

== ENCOUNTER → 2023-04-24 | Outpatient (CLI) | payer MEDICARE, OTHER, SELFPAY ==
[2023-04-24 11:41] LABS: AST(SGOT) 21 U/L (15-37); Alanine Aminotransfer ALT/SGPT 43 U/L (16-61); Albumin, Serum 3.2 g/dL (3.2-5.0); Alkaline Phosphatase 130 U/L (45-117); Anion Gap 3 (5-15); BUN 20 mg/dL (7-18); BUN/Creat Ratio 12.1 RATIO (10-20); Calcium,Total 9.1 mg/dL (8.5-10.1); Chloride 107 mmol/L (98-107); Creatinine, Serum 1.65 mg/dL (0.70-1.30); EST Glomerular Filtration Rate 43 mL/min (>60); Est Glom Filt Rate - Afr Amer 52 mL/min (>60); Globulin 3.3 g/dL (2.2-4.2); Glucose 89 mg/dL (74-106); Potassium 4.3 mmol/L (3.5-5.1); Protein, Total 6.5 g/dL (6.4-8.2); Sodium Level 139 mmol/L (136-145); Uric Acid 4.5 mg/dL (3.5-7.2)
== END | disposition home or self-care (01) ==
LOC: POLAB3 10:48
PROVIDERS: PCP Family Medicine Geriatric Medicine; Visit Provider Family Medicine Geriatric Medicine
DX: E79.0 Hyperuricemia without signs of inflammatory arthritis and tophaceous disease (principal); N18.31 Chronic kidney disease, stage 3a
CPT/HCPCS: 36415; 80053; 84550

== ENCOUNTER 2023-05-01 13:30 | Outpatient (RCR) | payer MEDICARE, OTHER, SELFPAY ==
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
--- NOTE | 2023-03-11 17:19 | HP.PTREVAL_ITS ---
Re-Evaluation Intro: Dr. Alexander Reza, DO, It has been my pleasure to treat CHECO GRAY over the last 10 visits for S/P LAMINECTOMY AND R QUAD WEAKNESS. Please see the progress note below for an update on the physical therapy plan of care! Subjective Subjective: PATIENT REPORTS HE IS STRONGER THAN HE LOOKS. STATES HE JUST CAME FROM SHOPPING AT [employer]. FOLLOW UP PENDING WITH DR. REZA SATURDAY. PATIENT REPORTS THERPAY IS HELPING. STATES HE CAN CONTRACT HIS QUAD MUCH BETTER NOW AND STATES HE CAN STEP UP WITH HIS R LE NOW AND COULDN'T BEFORE. DENIES ANY FALLS SIINCE STARTING PT. NO PROBLEMS WITH INCISION. RECENT MRI SHOWS ONE SMALL NEW LEFT LUNG TUMOR. NOT GOING TO START CHEMO YET AND REPEAT MRI PENDING END OF . ALSO SHOWED L LUNG INFECTION SO CURRENTLY ON MEDICATION FOR INFECTION PRESCRIBED BY ONCOLOGIST. Objective Objective/Function: PATIENT WAS SEEN TODAY FOR RE-ASSESSMENT OF PROGRESS TOWARD THE SET PT GOALS AND THE NEED FOR FURTHER PHYSICAL THERAPY VS READINESS FOR DISCHARGE. PATIENT IS MAKING GOOD PROGRESS WITH PT AND IS A GOOD CANDIDATE TO CONTINUE PT BASED ON PROGRESS MADE AND ROOM FOR FURTHER IMPROVEMENT. PATIENT IS REQUESTING TO CONTINUE PT. UPON EXAM TODAY: THIS PATIENT WALKS INDEP'LY INTO PT X > 300 FEET WITH DECREASED DEVIATIONS COMPARED TO INITIAL EVAL. HIS HEEL STRIKE AND TOE OFF PHASES OF GAIT ARE IMPROVING AND NOW TOEING OUT ON THE RIGHT LESS. CANE STILL RECOMMENDED FOR SAFETY DUE TO STILL HAVING SIGNIFICANT WEAKNESS IN R LE. PATIENT REPORTS HE HAS BEEN USING HIS CANE NEARLY ALL THE TIME FOR SAFETY BUT ACCIDENTLY LEFT THE HOUSE WITHOUT IT TODAY. Motor deficit: R LE: HIP 4-/5, KNEE EXT 4-/5, KNEE FLEX 4/5, ANKLE 4/5. L LE: HIP 4+/5, KNEE 5/5, ANKLE 5/5. OTHER: PATIENT IS ABLE TO SLS ON L LE AND HEEL RAISE. ABLE TO SLS ON R LE FOR A FEW SECONDS NOW BUT UNABLE TO HEEL RAISE WITHOUT UE SUPPORT. Plan Plan Plan: CONTINUE PT IF NEW PHYSICIAN ORDERS RECEIVED: 3X'S A WK X 10 VISITS. CONTINUE RUSSION STIM TO RIGHT QUAD. ALSO DO PT FOR FUNCTIONAL TRUNK DLS WITH NEUTRAL SPINE, FUNCTIONAL RASHMI LE STRENGTHENING, GAIT AND BALANCE TRAINING. Balance/Gait/Functional tests Balance/Special Test Scores Lower Extremity Functional Score: 59 Goals Goals Goal 1:: INDEP AND SAFE GAIT ON LEVEL SURFACES AND UP AND DOWN STEPS WITH LEAST AD. Goal Time Frame: 4-6 Weeks Goal Progress: Progressing Goal 2:: INCREASE R LE FUNCTIONAL STRENGTH TO EASE ADL'S. Goal Time Frame: 4-6 Weeks Goal Progress: Progressing Goal Time Frame: 4-6 Weeks Anticipated Interventions Anticipated Interventions Patient/Client Instruction: Educate patient on: Condition, Plan of Care and Risk Factors For the Purpose of:: To improve self management Therapeutic Exercise to Include: Strength training and Endurance training Comment: R QUAD For the Purpose of:: To improve muscle performance and motor function, To increase tolerance to activity/condition/position, To improve ability of physical actions for home/community/work/leisure and To improve gait and locomotor functions Other electric stimulation: Yes (RUSSION STIM TO R QUAD WITH AROM) For the Purpose of:: To improve nutrient delivery to tissue, To improve muscle performance and motor function, To increase tolerance to activity /condition/position, To improve ability of physical actions for home/community/work/leisure and To improve gait and locomotor functions Re-Evaluation Ending Re-evaluation ending: Please do not hesitate to contact me at [phone] by phone or if you have questions or concerns regarding this new plan of care! Sincerely, Christen Billy, PT, Cert MDT
--- NOTE | 2023-03-27 11:34 | HP.PTREVAL_ITS ---
Re-Evaluation Intro: Dr. Alexander Reza, DO, It has been my pleasure to treat CHECO GRAY over the last 14 visits for S/P LAMINECTOMY AND R QUAD WEAKNESS. Please see the progress note below for an update on the physical therapy plan of care! Subjective Subjective: Patient reports he is putting tiffany in and now he can get up and down with just using hand on knee multiple times. Today was the first day I woke up with no ache or pain or anything in my back and I haven't had any pain all day. I am just still weak in my core. Patient reports he wants to start pool ex's again to strengthen his core and Dr. Reza agreed. He eventually wants to maybe do the machines again too. Objective Objective/Function: PATIENT HAS NEW ORDERS TO ADD AQUATIC THERAPY THEREFORE WAS SEEN FOR RE-ASSESSMENT FOR POC CHANGE. UPON EXAM TODAY HE DEMO'S INCREASED R LE STRENGTH BUT CONTINUES TO HAVE POOR CORE STRENGTH. HE IS NOW ABLE TO GO UP AND DOWN STEPS reciprocally WITH ONE HR BUT UNSAFE DESCENDING WITH ONE HR DUE TO R QUAD WEAKNESS. IT WILL BE GOOD TO WORK ON THIS IN THE POOL AND PATIENT IS AGREEABLE. HE IS ALSO A GOOD CANDIDATE TO WORK ON HIS POSTURAL AND CORE STRENGTH IN THE POOL AND HE REPORTS HAVING SUCCESS WITH THIS IN THE PAST. CURRENTLY HIS CORE AND POSTURAL STRENGTH IS POOR AND HE IS ONLY ABLE TO PARTIALLY CORRECT WITH CUEING. RIGHT LE STRENGTH: HIP 4-/5, QUAD 4-/5, HS 4/5, ANKLE 4+/5. RE-CHECK IN 9-10 VISITS AND CONSIDER TRANSITION TO GYM OR HOME GYM EX PROGRAM IS APPROPRIATE AND IF OK'D BY DR. REZA. Plan Plan Plan: CONTINUE RUSSION STIM TO RIGHT QUAD 2-3 TIMES A WK AND ADD 2-3 AQUATIC THERAPY SESSIONS FOR FUNCTIONAL TRUNK DLS WITH NEUTRAL SPINE, FUNCTIONAL RASHMI LE STRENGTHENING, GAIT AND BALANCE TRAINING INCLUDING STAIR TRAINING TO HELP PATIENT TRANSITION TO INDEP POOL EX. Balance/Gait/Functional tests Balance/Special Test Scores Lower Extremity Functional Score: 59 Goals Goals Goal 1:: INDEP AND SAFE GAIT ON LEVEL SURFACES AND UP AND DOWN STEPS WITH LEAST AD. Goal Time Frame: 4-6 Weeks Goal Progress: Progressing Goal 2:: INCREASE R LE FUNCTIONAL STRENGTH TO EASE ADL'S. Goal Time Frame: 4-6 Weeks Goal Progress: Progressing Goal 3:: NEW GOAL: INCREASE CORE AND POSTURAL STRENGTH TO EASE ADL'S. Goal Time Frame: 4-6 Weeks Anticipated Interventions Anticipated Interventions Patient/Client Instruction: Educate patient on: Condition, Plan of Care and Risk Factors For the Purpose of:: To improve self management Therapeutic Exercise to Include: Strength training and Endurance training Comment: R QUAD For the Purpose of:: To improve muscle performance and motor function, To increase tolerance to activity/condition/position, To improve ability of physical actions for home/community/work/leisure and To improve gait and locomotor functions Other electric stimulation: Yes (RUSSION STIM TO R QUAD WITH AROM) For the Purpose of:: To improve nutrient delivery to tissue, To improve muscle performance and motor function, To increase tolerance to activity/condition/ position, To improve ability of physical actions for home/community/work/leisure and To improve gait and locomotor functions Re-Evaluation Ending Re-evaluation ending: Please do not hesitate to contact me at [phone] by phone or if you have questions or concerns regarding this new plan of care! Sincerely, Christen Billy, PT, Cert MDT
--- NOTE | 2023-05-01 13:52 | HP.PTDCSUM_ITS ---
Discharge Summary D/C summary: It has been my pleasure to treat CHECO GRAY referred by Dr. Alexander Reza DO, with the diagnosis of S/P LAMINECTOMY AND R QUAD WEAKNESS for a total of 24 visit(s). Discharge Date: 05/01/23 Please see the following information for a summary of their discharge status. Subjective Subjective: PATIENT REPORTS HIS LEG IS GETTING STRONGER AND STRONGER AND HE IS DONE WITH THERAPY NOW. I CAN STAND UP BETTER AND MY WALKING IS A LOT MORE S ECURE. PATIENT ALSO REPORTS HE CAN COME DOWN STEPS BETTER NOW TOO BUT HE IS STILL CAREFUL. I'M UP AND DOWN THE STEPS EVERY DAY A BUNCH. Overall Improvement % Improvement: 90 Objective Objective/Function: PATIENT WAS SEEN TODAY FOR RE-ASSESSMENT OF PROGRESS TOWARD THE SET PT GOALS AND THE NEED FOR FURTHER PHYSICAL THERAPY VS READINESS FOR DISCHARGE. PATIENT IS INDEP WITH BOTH GYM AND POOL EX PROGRAMS. UPON EXAM TODAY ALL PT GOALS HAVE BEEN MET AND PATIENT IS APPRORIATE FOR DISCHARGE TO INDEP GYM MEMBERSHIP HERE AT [facility]. HE DOES STILL HAVE DECREASED RIGHT HIP STRENGTH COMPARED TO THE L GRADED 4/5 AND DECREASED R QUAD STRENGTH GRADED 4/5 BUT HIS FUNCTION IS IMPROVING - ABLE TO DESCEND STEPS RECIPRICALLY WITH ONE HANDRAIL SAFELY NOW. Goals Goal 1:: INDEP AND SAFE GAIT ON LEVEL SURFACES AND UP AND DOWN STEPS WITH LEAST AD. Goal Progress: Goal Met Goal 2:: INCREASE R LE FUNCTIONAL STRENGTH TO EASE ADL'S. Goal Progress: Goal Met Goal 3:: NEW GOAL: INCREASE CORE AND POSTURAL STRENGTH TO EASE ADL'S. Goal Progress: Goal Met Plan Plan: D/C TO INDEP EX. PATIENT AGREEABLE. D/C Information d/c sentence: If there are questions or concerns regarding this patient's physical therapy, please feel free to call me at [phone]. Thank you for the referral of this patient. Sincerely, Christen Billy, PT, Cert MDT Balance/Gait/Functional tests Balance/Special Test Scores Lower Extremity Functional Score: 60 Improvement % Improvement: 90
== END 2023-05-01 14:35 | disposition home or self-care (01) ==
LOC: PT 13:30
PROVIDERS: PCP Family Medicine Geriatric Medicine; Referring Provider Orthopaedic Surgery; Visit Provider Orthopaedic Surgery
DX: Z98.890 Other specified postprocedural states (principal)
CPT/HCPCS: 97014; 97032; 97110; 97113; 97162; 97164; G0283

== ENCOUNTER → 2023-05-02 | Outpatient (CLI) | payer MEDICARE, OTHER, SELFPAY ==
--- NOTE | 2023-05-02 07:17 | US_ITS ---
STUDY: ABDOMINAL ULTRASOUND - ELASTOGRAPHY REASON FOR VISIT: Male, 77 years old. Fatty infiltration of the liver. TECHNIQUE: Liver stiffness measurements were obtained on a [employer] RS 85 ultrasound machine using a CA 1-7 probe following the SRU guidelines. 3 measurements were obtained using a 2-D-SWE method. TheIQR/M was 25 % suggesting a quality data set. TECHNICAL QUALITY: Adequate. COMPARISON: None. FINDINGS: Liver: Fatty infiltration of liver. Median liver stiffness measured 6.3 kPa. Abdomen: There is no demonstrated mass lesion. US/Elastography Parenchyma/Organ IMPRESSION: Liver stiffness measures 6.3 kPa compatible with F2-F3 (Mild to moderate liver fibrosis) Metavir score. Electronically Signed: López Palafox MD at 10:27 EDT ,
== END | disposition home or self-care (01) ==
LOC: US 07:16
PROVIDERS: PCP Family Medicine Geriatric Medicine; Referring Provider Family Medicine Geriatric Medicine; Visit Provider Family Medicine Geriatric Medicine
DX: K76.0 Fatty (change of) liver, not elsewhere classified (principal)
CPT/HCPCS: 76981

== ENCOUNTER → 2023-05-27 | Outpatient (CLI) | payer MEDICARE, OTHER, SELFPAY ==
[2023-05-27 14:53] LABS: Absolute Lymphocyte Count 0.64 X10^3/uL (0.83-4.51); Absolute Neutrophil Count 12.8 X10^3/uL (2.0-7.7); Basophil# 0.03 X10^3/uL; Basophil% 0.2 % (0-1); Eosinophil# 0.01 X10^3/uL; Eosinophils% 0.1 % (0-5); Hematocrit 39.1 % (40-54); Hemoglobin 12.7 g/dL (13.0-16.5); Lymphocyte # 0.64 X10^3/ul (0.83-4.51); Lymphocyte % 4.3 % (19-41); Mean Corp Hgb Conc 32.5 g/dL (32-36); Mean Corpuscular Hgb 30.4 pg (27.0-32.0); Mean Corpuscular Volume 93.5 fL (80-94); Mean Platelet Vol. 10.4 fl (6.2-12.0); Monocyte# 1.31 X10^3/uL; Monocyte% 8.8 % (0-10); NRBC Flagged by Analyzer 0 % (0-5); Neutrophil # 12.81 X10^3/uL (2.7-7.7); Neutrophil % 85.8 % (47-70); Platelet Count 175 K/mm3 (150-450); RBC Distribution Width CV 14.4 % (11.6-14.6); RBC Distribution Width SD 48.9 fl (35.1-43.9); Red Blood Count 4.18 M/mm3 (4.6-6.2); White Blood Count 14.9 K/mm3 (4.4-11.0)
--- NOTE | 2023-05-27 14:54 | RAD_ITS ---
STUDY: X-RAY CHEST REASON FOR EXAM: Male, 77 years old. CONGESTION OF RESPIRATORY TRACT TECHNIQUE: PA and lateral views of the chest. COMPARISON: 02/01/2021 FINDINGS: Scarring and volume loss of the upper right lung likely from radiation therapy. There is no demonstrated pleural abnormality. Normal size heart. Normal mediastinum and ghulam. Normal visualized pulmonary arteries. Normal visualized aortic arch and descending thoracic aorta. Normal visualized thoracic spine. Normal visualized ribs, clavicles, and shoulders. There is no demonstrated abnormality of the visualized soft tissue structures of the upper abdomen. RAD/Chest PA and Lateral IMPRESSION: Right upper lobe scarring. Electronically Signed: Jaxon Scott MD at 22:07 EDT ,
[2023-05-27 15:21] LABS: Lactic Acid 1.3 mmol/L (0.4-1.9)
[2023-05-27 15:22] LABS: ALB/GLOB Ratio 0.8 RATIO (0.9-2.4); AST(SGOT) 32 U/L (15-37); Alanine Aminotransfer ALT/SGPT 32 U/L (16-61); Albumin, Serum 3.1 g/dL (3.2-5.0); Alkaline Phosphatase 106 U/L (45-117); Anion Gap 5 (5-15); BUN 25 mg/dL (7-18); BUN/Creat Ratio 14.3 RATIO (10-20); Calcium,Total 8.7 mg/dL (8.5-10.1); Chloride 106 mmol/L (98-107); Creatinine, Serum 1.75 mg/dL (0.70-1.30); EST Glomerular Filtration Rate 40 mL/min (>60); Est Glom Filt Rate - Afr Amer 49 mL/min (>60); Globulin 3.9 g/dL (2.2-4.2); Glucose 121 mg/dL (74-106); Potassium 3.8 mmol/L (3.5-5.1); Sodium Level 139 mmol/L (136-145)
== END | disposition home or self-care (01) ==
PROVIDERS: PCP Family Medicine Geriatric Medicine; Referring Provider Family Medicine Geriatric Medicine; Visit Provider Family Medicine Geriatric Medicine
DX: E79.0 Hyperuricemia without signs of inflammatory arthritis and tophaceous disease (principal); N17.9 Acute kidney failure, unspecified; M79.10 Myalgia, unspecified site; J98.8 Other specified respiratory disorders
CPT/HCPCS: 36415; 71046; 80053; 83605; 85025

== ENCOUNTER → 2023-05-28 | Outpatient (CLI) | payer MEDICARE, OTHER, SELFPAY | END | disposition home or self-care (01) | LOC: PSN 10:04 | PROVIDERS: PCP Family Medicine Geriatric Medicine; Referring Provider Family Medicine Geriatric Medicine; Visit Provider Family Medicine Geriatric Medicine | DX: R68.83 Chills (without fever) (principal) | CPT/HCPCS: 87635; 87804; 87807; C9803 ==

== ENCOUNTER → 2023-06-04 | Outpatient (CLI) | payer MEDICARE, OTHER, SELFPAY ==
[2023-06-04 14:04] LABS: Hematocrit 42.7 % (40-54); Hemoglobin 13.9 g/dL (13.0-16.5); Mean Corp Hgb Conc 32.6 g/dL (32-36); Mean Corpuscular Hgb 29.8 pg (27.0-32.0); Mean Corpuscular Volume 91.6 fL (80-94); Mean Platelet Vol. 9.7 fl (6.2-12.0); Platelet Count 280 K/mm3 (150-450); RBC Distribution Width CV 14.2 % (11.6-14.6); RBC Distribution Width SD 47.4 fl (35.1-43.9); Red Blood Count 4.66 M/mm3 (4.6-6.2); White Blood Count 11.8 K/mm3 (4.4-11.0)
[2023-06-04 14:15] LABS: Albumin, Serum 2.9 g/dL (3.2-5.0); BUN 26 mg/dL (7-18); BUN/Creat Ratio 14.9 RATIO (10-20); Calcium,Total 8.7 mg/dL (8.5-10.1); Chloride 108 mmol/L (98-107); Creatinine, Serum 1.75 mg/dL (0.70-1.30); EST Glomerular Filtration Rate 40 mL/min (>60); Est Glom Filt Rate - Afr Amer 49 mL/min (>60); Glucose 126 mg/dL (74-106); Phosphorus 2.1 mg/dL (2.5-4.9); Potassium 3.9 mmol/L (3.5-5.1); Sodium Level 138 mmol/L (136-145)
[2023-06-04 14:17] LABS: Protein, Urine (Random) 19.6 mg/dL (<11.9); Protein:Creat Ratio 227 mg/g CRE (0-200)
[2023-06-04 14:34] LABS: PTHIN 67.4 pg/mL (18.4-80.1)
== END | disposition home or self-care (01) ==
LOC: POLAB3 13:23
PROVIDERS: PCP Family Medicine Geriatric Medicine; Visit Provider Internal Medicine Nephrology
DX: N18.32 Chronic kidney disease, stage 3b (principal)
CPT/HCPCS: 36415; 80069; 82570; 83970; 84156; 85027

== ENCOUNTER → 2023-07-09 | Outpatient (CLI) | payer MEDICARE, OTHER, SELFPAY ==
--- NOTE | 2023-07-09 14:58 | RAD_ITS ---
INDICATION: CONGESTION congestion x 2 weeks, recently finished radiation for lung CA EXAMINATION/TECHNIQUE: X-RAY - XR Chest 2 Views COMPARISON: 05/27/2023 FINDINGS: LINES/DEVICES: None. LUNGS: Opacity in the right upper lobe with upward hilar retraction and volume loss is unchanged, likely postsurgical and/or posttreatment changes. No new consolidation. No pneumothorax. MEDIASTINUM: Unremarkable. CARDIAC SILHOUETTE: Not enlarged. BONES AND SOFT TISSUES: No acute abnormalities. Surgical clips right upper abdomen cholecystectomy. RAD/Chest PA and Lateral IMPRESSION: Stable chest x-ray with postsurgical/posttreatment changes on the right and volume loss. No new infiltrates. Electronically Signed: Karina Cervantes MD at 23:33 EST ,
== END | disposition home or self-care (01) ==
LOC: RAD 14:55
PROVIDERS: PCP Family Medicine Geriatric Medicine; Referring Provider Family Medicine Geriatric Medicine; Visit Provider Family Medicine Geriatric Medicine
DX: J98.8 Other specified respiratory disorders (principal)
CPT/HCPCS: 71046

== ENCOUNTER → 2023-07-10 | Outpatient (CLI) | payer MEDICARE, OTHER, SELFPAY | END | disposition home or self-care (01) | LOC: PSN 08:24 | PROVIDERS: PCP Family Medicine Geriatric Medicine; Referring Provider Family Medicine Geriatric Medicine; Visit Provider Family Medicine Geriatric Medicine | DX: R68.83 Chills (without fever) (principal) | CPT/HCPCS: 87635; 87804; 87807; C9803 ==

== ENCOUNTER → 2023-07-23 | Outpatient (CLI) | payer MEDICARE, OTHER, SELFPAY ==
--- NOTE | 2023-07-23 15:07 | RAD_ITS ---
STUDY: X-RAY CHEST REASON FOR EXAM: Male, 77 years old. BRONCHITIS TECHNIQUE: PA and lateral views of the chest. COMPARISON: 07/09/2023 FINDINGS: No change in the scarring and volume loss of the apex of the right lung. There is no demonstrated pleural abnormality. Normal size heart. Normal mediastinum and ghulam. Normal visualized pulmonary arteries. There is atherosclerotic tortuosity of the aortic arch and descending thoracic aorta. Normal visualized thoracic spine. Normal visualized ribs, clavicles, and shoulders. There is no demonstrated abnormality of the visualized soft tissue structures of the upper abdomen. RAD/Chest PA and Lateral IMPRESSION: No change from 07/09/2023. Electronically Signed: Jaxon Scott MD at 21:14 EST ,
[2023-07-23 15:55] LABS: Absolute Lymphocyte Count 0.82 X10^3/uL (0.83-4.51); Absolute Neutrophil Count 7.6 X10^3/uL (2.0-7.7); Basophil# 0.05 X10^3/uL; Basophil% 0.5 % (0-1); Eosinophil# 0.05 X10^3/uL; Eosinophils% 0.5 % (0-5); Hematocrit 49.7 % (40-54); Hemoglobin 15.6 g/dL (13.0-16.5); Lymphocyte # 0.82 X10^3/ul (0.83-4.51); Lymphocyte % 8.7 % (19-41); Mean Corp Hgb Conc 31.4 g/dL (32-36); Mean Corpuscular Hgb 29.7 pg (27.0-32.0); Mean Corpuscular Volume 94.5 fL (80-94); Mean Platelet Vol. 10.5 fl (6.2-12.0); Monocyte# 0.67 X10^3/uL; Monocyte% 7.1 % (0-10); NRBC Flagged by Analyzer 0 % (0-5); Neutrophil % 80.8 % (47-70); Platelet Count 154 K/mm3 (150-450); RBC Distribution Width CV 14.6 % (11.6-14.6); RBC Distribution Width SD 50.4 fl (35.1-43.9); Red Blood Count 5.26 M/mm3 (4.6-6.2); White Blood Count 9.4 K/mm3 (4.4-11.0)
[2023-07-23 16:08] LABS: ALB/GLOB Ratio 0.9 RATIO (0.9-2.4); AST(SGOT) 17 U/L (15-37); Alanine Aminotransfer ALT/SGPT 26 U/L (16-61); Albumin, Serum 3.1 g/dL (3.2-5.0); Alkaline Phosphatase 78 U/L (45-117); Anion Gap 5 (5-15); BUN 23 mg/dL (7-18); BUN/Creat Ratio 12.8 RATIO (10-20); Calcium,Total 8.4 mg/dL (8.5-10.1); Chloride 108 mmol/L (98-107); Creatinine, Serum 1.79 mg/dL (0.70-1.30); EST Glomerular Filtration Rate 39 mL/min (>60); Est Glom Filt Rate - Afr Amer 48 mL/min (>60); Globulin 3.4 g/dL (2.2-4.2); Glucose 131 mg/dL (74-106); Potassium 4.1 mmol/L (3.5-5.1); Protein, Total 6.5 g/dL (6.4-8.2); Sodium Level 141 mmol/L (136-145)
[2023-07-23 16:33] LABS: BNP,B-Type NATRIURETIC PEPTIDE 33.4 pg/mL (0-100)
== END | disposition home or self-care (01) ==
PROVIDERS: PCP Family Medicine Geriatric Medicine; Referring Provider Family Medicine Geriatric Medicine; Visit Provider Family Medicine Geriatric Medicine
DX: J40 Bronchitis, not specified as acute or chronic (principal); R06.02 Shortness of breath
CPT/HCPCS: 36415; 71046; 80053; 83880; 85025

== ENCOUNTER → 2023-07-24 | Outpatient (CLI) | payer MEDICARE, OTHER, SELFPAY | END | disposition home or self-care (01) | LOC: PSN 08:49 | PROVIDERS: PCP Family Medicine Geriatric Medicine; Referring Provider Family Medicine Geriatric Medicine; Visit Provider Family Medicine Geriatric Medicine | DX: R68.83 Chills (without fever) (principal) | CPT/HCPCS: 87635; 87804; 87807; C9803 ==

== ENCOUNTER 2023-08-09 10:11 | Emergency (ER) | payer MEDICARE, OTHER, SELFPAY ==
[2023-08-09 10:13] VITALS: BP 163/94; PULSE 94; RESP 26; TEMP 37.3; O2SAT 97
--- NOTE | 2023-08-09 10:29 | ED.VIS.DYS ---
HPI History of Present Illness Chief Complaint: Shortness of Breath Informant: patient and spouse/S.O. Onset/Context/Timing Onset: Weeks Context: gradual Timing: Continuous Quality: Positive for Wheezing Maximum Severity: Mild Worsened by: Nothing Relieved by: Nothing Associated Symptoms cough and clear sputum Chest Pain: Positive for None Narrative Narrative: 77-year-old male history of lung cancer for which she has undergone surgery chemo and radiation currently is not under chemotherapy. Also history of COPD and CKD with only 1 kidney. Has been short of breath for days to weeks. Cough of clear sputum. And increasing shortness of breath. Symptoms been going on now weeks. Currently not on steroids. He is not on oxygen. He denies any history of DVT or PE. He has had fluid retention and lost about 9 pounds after being given medication for it. No history of CHF. No chest pain. PE Risk Factors: Positive for Cancer; Negative for OCP + Smoking + > 35, Prior DVT or PE, Recent immobilization, Recent surgery or Recent travel Prior similar symptoms: Yes Recent Illness/Hospitalization: No PFSH PFSH Medical History Alcohol use Arthritis Bladder cancer Bladder carcinoma Cancer Cardiology follow-up encounter Chronic back pain Chronic gout Chronic kidney disease, stage 3 CKD (chronic kidney disease) stage 3, GFR 30-59 ml/min COPD (chronic obstructive pulmonary disease) Encounter for screening for COVID-19 Former smoker Gastric reflux GERD (gastroesophageal reflux disease) Gout History of echocardiogram History of edema History of irregular heartbeat History of steroid therapy History of stress test Hyperlipidemia Hypogonadism Lung cancer LUIS CARLOS (obstructive sleep apnea) Pulmonary embolism Renal cancer Renal cell carcinoma Restless legs Sleep apnea TIA (transient ischemic attack) Walker as ambulation aid Wears glasses Home Medications albuterol sulfate 90 mcg/actuation aerosol inhaler 1 - 2 puff inhalation Q4H PRN PRN Wheezing 10/20/13 [History Last Taken 10/26/13 1 - 2 PUFF] pramipexole 0.5 mg tablet 0.5 mg PO BID RLS 10/05/16 [History Last Taken Unknown] pantoprazole 40 mg tablet,delayed release 40 mg PO QHS 07/17/19 [History Last Taken Unknown] acetaminophen 325 mg tablet 650 mg (2 x 325 mg) PO Q4H PRN PRN Pain Score 1-5/10 07/24/19 [Rx Last Taken Unknown] doxepin 25 mg capsule 25 mg PO QHS SLEEP 11/05/20 [History Last Taken Unknown] budesonide 0.5 mg/2 mL suspension for nebulization 0.5 mg (2 mL) inhalation BID #120 mL 05/02/21 [Rx Last Taken Unknown] febuxostat 40 mg tablet (Uloric) 40 mg PO QHS GOUT 06/21/21 [History Last Taken Unknown] ondansetron HCl 4 mg tablet (Zofran) 4 mg PO Q6H PRN Nausea 06/21/21 [History Last Taken Unknown] prednisone 5 mg tablet 7.5 mg PO DAILY 01/14/23 [History Last Taken Unknown] vitamin [id number] B1 1,000 mcg-100 mg/mL injection solution 1 ml IM .Q2W 01/14/23 [History Last Taken Unknown] erythromycin 5 mg/gram (0.5 %) eye ointment 1 applic EACH EYE BID 01/28/23 [History Last Taken Unknown] doxycycline monohydrate 100 mg capsule mg PO 03/15/23 [History Last Taken Unknown] albuterol sulfate 2.5 mg/3 mL (0.083 %) solution for nebulization 2.5 mg (3 mL) inhalation Q4H PRN #25 vials 08/09/23 [Rx Last Taken Unknown] Allergy/AdvReac Type Severity Reaction Status Date / Time No Known Allergies Allergy Verified 08/09/23 10:12 Family History Father Malignant neoplasm of lung Mother Hypertension Surgical History H/O kidney removal History of appendectomy History of back surgery History of bladder surgery History of cataract extraction History of colonoscopy History of thoracotomy History of tonsillectomy Social History Smoking Status: Former smoker quit date: 08/05/89 pack-years: 38 ROS ROS ED ROS Narrative Cough. Sputum. Shortness of breath. Wheezing. Review of Systems ROS Unobtainable: Denies due to encephalopathy Constitutional Constitutional ED: Denies chills or fever(s) Eyes Eyes: Denies blurry vision ENT ENT ED: Denies ear pain Cardiovascular Cardiovascular: Denies chest pain or palpitations Respiratory/Chest Respiratory/Chest: Reports cough, dyspnea and sputum Gastrointestinal Gastrointestinal: Denies abdominal pain, constipation, diarrhea, melena, nausea or vomiting Genitourinary Genitourinary ED: Denies dysuria or hematuria Musculoskeletal Musculoskeletal: Denies arthralgias Integumentary Denies abscess Neurologic Neurologic: Denies headache(s) Psychiatric Psychiatric: Denies anxiety or depression Endocrine Endocrinology: Denies cold intolerance Hematologic/Lymphatic Hematologic/Lymphatic: Denies easy bleeding, easy bruising or lymphadenopathy Allergic/Immunologic Allergic/Immunologic ED: Denies mouth swelling or urticaria EXAM Physical Exam Narrative Exam Narrative: 77-year-old male actively wheezing. Vital signs are stable. Pulse ox 97% on room air no hypoxia. H EENT exam unremarkable. Neck nontender no JVD. Lungs expiratory wheezing throughout. No rales or rhonchi. Equal symmetrical. Heart regular rhythm rate about 95 no murmur. Chest wall and ribs nontender. Abdomen soft nontender. Moving all 4 extremities. Trace edema right lower leg. Dorsi plantarflexion intact. Calves nontender. No cords. Neurologically is awake and alert with no focal motor deficits. Answering questions and following commands. Const Vital Signs: 08/09/23 10:13 08/09/23 10:36 08/09/23 10:37 Temperature 99.2 F H 97.6 F L Temperature Source Temporal Oral Pulse Rate 94 89 Respiratory Rate 26 H 19 H Respiratory Effort Short of Breath Respiratory Depth Normal Respiratory Pattern Normal Blood Pressure 163/94 H 141/107 H Blood Pressure Mean 117 118 Pulse Ox 97 93 Oxygen Delivery Method Room Air 08/09/23 10:38 08/09/23 11:15 08/09/23 12:00 Temperature 97.2 F L 97.4 F L Temperature Source Temporal Temporal Pulse Rate 90 88 92 Respiratory Rate 26 H 19 H 22 H Respiratory Effort Respiratory Depth Respiratory Pattern Tachypnea Blood Pressure 142/100 H 147/96 H Blood Pressure Mean 114 113 Pulse Ox 93 94 Oxygen Delivery Method Positive well nourished and well developed; Negative for cachectic, contractures or unkempt General Appearance ED: well developed and NAD; Negative for unkempt, cachectic, contractures or pallor Nutritional Appearance: Negative for cachectic HEENT Reports moist mucous membranes atraumatic; Negative for trauma or tenderness Eyes PERRL and EOMs intact bilaterally General Eye ED: Negative for pale conjunctiva, scleral icterus or other Neck no lymphadenopathy, supple, no meningeal signs and no JVD General: Negative for tenderness Lymph Lymphatic: Negative for other Chest Wall Chest: Negative for other Resp No normal respiratory effort and No clear to auscultation bilaterally Resp Narrative: Prolonged expiratory phase. Bilateral wheezing. Auscultation: wheezes Cardio regular rate, regular rhythm, S1 normal heart sound, S2 normal heart sound and no murmurs Rate: Negative for bradycardia or tachycardic Rhythm: Negative for abnormal rhythm GI non-tender, non-distended and no masses Inspection: Negative for other Auscultation: normoactive bowel sounds Palpation: soft; Negative for tender or guarding Back/Spine no CVA tenderness and normal to inspection General Back: Negative for CVA tenderness or tenderness Extremity normal to inspection General Extremety ED: Negative for edema or tenderness General Extremity: Negative for edema Neuro oriented x3 and CN's II-XII intact bilaterally Sensorium / Orientation: alert, oriented to person, oriented to place and oriented to time; Negative for orientation impaired, confused, lethargic or stuporous Speech: speech normal Motor Exam: strength 5/5 throughout Psych mental status grossly normal Appearance: Negative for unkempt Attitude: No agitated Mood & Affect: Negative for depressed, anxious or tearful Thought Process: normal thought process Skin no wounds and skin turgor normal General Skin Exam: Negative for jaundice or pallor Lesions: no lesions Rashes: no rashes Trauma: Negative for abrasion, laceration or puncture MDM MDM MDM Narrative Medical decision making narrative: 77-year-old male history of COPD and lung CA with chronic shortness of breath for weeks. Rule out infection versus effusion versus CHF versus cardiac or PE. Screening labs and chest x-ray be obtained. D-dimer. Aerosols and Solu-Medrol for his wheezing. Repeat exam patient is doing better after aerosol treatments. And IV Solu-Medrol. He is currently on a tapering dose of steroid at home. He does not qualify for home oxygen. I did speak to the nurse practitioner Ellie Herrera at the [facility] and they will see him in follow-up. They saw him in the office today. I will also write him a prescription for albuterol for his nebulizer. Patient and his are comfortable with him being discharged home. History & Record Review Discussion w/independent historian: Patient and Family Additional record(s) reviewed:: Prior inpatient record, Prior outpatient record, Prior ED visit and Prior labs Lab Data Attestation: I reviewed the patient's lab results. Lab results narrative: COVID, flu and RSV all negative. Chest x-ray chronic changes with a prior right upper lobe mass. CBC shows normal white count of 10. H&H is 16 and 50. Platelets 183. D-dimer negative at 0.49 Chemistries show a normal anion gap. BUN 26 creatinine 1.8. Glucose 118. Troponin 21. Labs: Laboratory Results - last 24 hr 08/09/23 08/09/23 08/09/23 10:30 10:30 11:25 WBC Cancelled 10.2 Corrected WBC Cancelled RBC Cancelled 5.47 Hgb Cancelled 16.2 Hct Cancelled 50.8 MCV Cancelled 92.9 MCH Cancelled 29.6 MCHC Cancelled 31.9 L RDW Std Deviation Cancelled 50.4 H RDW Coeff of Crystal Cancelled 14.6 Plt Count Cancelled 183 MPV Cancelled 9.8 Immature Gran % (Auto) Cancelled 2.300 H Neut % (Auto) Cancelled 66.7 Lymph % (Auto) Cancelled 20.9 [place] % (Auto) Cancelled 8.5 Eos % (Auto) Cancelled 0.7 Baso % (Auto) Cancelled 0.9 Absolute Neuts (auto) Cancelled 6.8 Absolute Lymphs (auto) Cancelled 2.13 Total Counted Cancelled Neutrophils % (Manual) Cancelled Band Neutrophils % Cancelled Lymphocytes % (Manual) Cancelled Monocytes % (Manual) Cancelled Eosinophils % (Manual) Cancelled Basophils % (Manual) Cancelled Metamyelocytes % Cancelled Myelocytes % Cancelled Promyelocytes % Cancelled Blast Cells % Cancelled Plasma Cell % (Manual) Cancelled Other Cells % Cancelled Nucleated RBC % Cancelled 0 Nucleated RBCs/100 WBC Cancelled Differential Comment Cancelled Diff Path Review Cancelled Hypersegmented Neuts Cancelled Atypical Lymphocytes Cancelled Reactive Lymphocytes Cancelled Smudge Cells Cancelled Toxic Granulation Cancelled Toxic Vacuolation Cancelled Dohle Bodies Cancelled Neftali Rods Cancelled Platelet Estimate Cancelled Plt Morphology Comment Cancelled RBC Morphology Cancelled Cancelled Polychromasia Cancelled Hypochromasia Cancelled Poikilocytosis Cancelled Basophilic Stippling Cancelled Anisocytosis Cancelled Microcytosis Cancelled Macrocytosis Cancelled Spherocytes Cancelled Sickle Cells Cancelled Target Cells Cancelled Tear Drop Cells Cancelled Ovalocytes Cancelled Stomatocytes Cancelled [place] Bodies Cancelled [place] Cells Cancelled Bite Cells Cancelled Crenated Cell Cancelled Acanthocytes (Spur) Cancelled Rouleaux Cancelled Schistocytes Cancelled D-Dimer Quant (PE/DVT) 0.49 Sodium 138 Potassium 4.4 Chloride 104 Carbon Dioxide 31.0 Anion Gap 3 L BUN 26 H Creatinine 1.80 H Est GFR (MDRD) Af Amer 47 L Est GFR (MDRD) Non-Af 39 L BUN/Creatinine Ratio 14.4 Glucose 118 H Calcium 9.3 Troponin I High Sens 21 Radiography Chest X-Ray - ED: 1 View, Read by ED Physician, Heart, Mediastinum, Bony Structures, No Acute Disease and Chronic Changes Diagnostic Testing: Clinical Impression(s) from Imaging Studies Chest X-Ray 08/09/23 11:05 IMPRESSION: Stable postoperative changes in the right upper lung consolidation. Electronically Signed: Obed Munguia MD at 11:41 EST , Chest x-ray, portable, single view, interpreted by myself, shows a prior right upper lobe pneumonia with chronic surgical change. No acute process. Rhythm Strip Rhythm Strip: Sinus Rhythm Rate: 87 Ectopy: None EKG Initial EKG: Attestation: I personally reviewed and interpreted this EKG as follows: Interpretation: Sinus Rhythm and No Acute Injury Pattern Comments: Normal sinus rhythm rate 87 no acute signs of [place] nor ischemia. Discharge Plan Triage Chief Complaint: Shortness of Breath ED Provider: Edison Carter Dx/Rx/DC Orders Clinical Impression: COPD (chronic obstructive pulmonary disease), History of lung cancer, History of chronic kidney disease Instructions: ED COPD Flare Prescriptions: New albuterol sulfate 2.5 mg /3 mL (0.083 %) solution for nebulization 2.5 mg inhalation Q4H PRN Qty: 25 0RF Rx Instructions: Use q4 hours and PRN for wheezing No Action febuxostat [Uloric] 40 mg tablet 40 mg PO QHS ondansetron HCl [Zofran] 4 mg tablet 4 mg PO Q6H PRN (Reason: Nausea) doxycycline monohydrate 100 mg capsule PO albuterol sulfate 1 INHALER inhaler 1 - 2 puff INHALATION Q4H PRN PRN (Reason: Wheezing) pramipexole 0.5 MG tablet 0.5 mg PO BID pantoprazole 40 MG tablet 40 mg PO QHS acetaminophen 325 MG tablet 650 mg PO Q4H PRN PRN (Reason: Pain Score 1-5/10) 0RF doxepin 25 MG capsule 25 mg PO QHS vitamin [id number] B1 1,000-100 mg/mL Solution 1 ml IM .Q2W prednisone 5 mg Tablet 7.5 mg PO DAILY erythromycin 5 mg/gram (0.5 %) ointment 1 applic EACH EYE BID Rx Instructions: ADDED TO PT'S HOME MED LIST budesonide 0.5 mg/2 mL suspension for nebulization 0.5 mg inhalation BID Qty: 120 3RF Primary Care Provider: David Chandler Chi Referrals: David Chandler Chi, MD [Primary Care Provider] - Activity Restrictions/Additional Instructions: Continue and finish your steroid taper. Inhaler and nebulizer as needed. 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 Return if feeling a lot worse. Your labs, chest x-ray and EKG were pretty much at baseline today. No significant changes. Disposition Disposition: Home, Self Care
[2023-08-09 10:36] VITALS: O2SAT 93
[2023-08-09 10:37] VITALS: BP 141/107; PULSE 89; RESP 19; TEMP 36.4; O2SAT 93
[2023-08-09 10:38] VITALS: PULSE 90; RESP 26
[2023-08-09] MEDS: Ipratropium/Albuterol Sulfate 3 ML AMPUL.NEB INHALATION (10:38)
[2023-08-09] MEDS: Albuterol 2.5 MG/3 ML VIAL.NEB. INHALATION (10:38)
[2023-08-09] MEDS: MethylPREDNISolone 125 MG/2 ML Vial IV (10:42)
--- NOTE | 2023-08-09 11:05 | RAD_ITS ---
STUDY: X-RAY CHEST REASON FOR EXAM: Male, 77 years old. Dyspnea TECHNIQUE: Single AP portable view of the chest. COMPARISON: July 23, 2023 FINDINGS: There are monitoring devices. There is postoperative change on the right with elevation of hemidiaphragm. There are surgical clips mid and lower chest. There is right upper lung consolidation and pleural thickening. Left lung is clear. Normal size heart. There is distortion of the right hilum. Normal visualized pulmonary arteries. Normal visualized aortic arch and descending thoracic aorta. Normal visualized thoracic spine. Normal visualized ribs, clavicles, and shoulders. There is no demonstrated abnormality of the visualized soft tissue structures of the upper abdomen. RAD/Chest 1 View (Portable) IMPRESSION: Stable postoperative changes in the right upper lung consolidation. Electronically Signed: Obed Munguia MD at 11:41 EST ,
[2023-08-09 11:08] LABS: D-Dimer Quantitative (DVT/PE) 0.49 FEU/ug/m (0.27-0.49)
[2023-08-09 11:14] LABS: Anion Gap 3 (5-15); BUN 26 mg/dL (7-18); BUN/Creat Ratio 14.4 RATIO (10-20); Calcium,Total 9.3 mg/dL (8.5-10.1); Chloride 104 mmol/L (98-107); EST Glomerular Filtration Rate 39 mL/min (>60); Est Glom Filt Rate - Afr Amer 47 mL/min (>60); Glucose 118 mg/dL (74-106); Potassium 4.4 mmol/L (3.5-5.1); Sodium Level 138 mmol/L (136-145); Troponin-I HS 21 pg/mL (3.0-78.0)
[2023-08-09 11:15] VITALS: BP 142/100; PULSE 88; RESP 19; TEMP 36.2; O2SAT 93
[2023-08-09 11:39] LABS: Absolute Lymphocyte Count 2.13 X10^3/uL (0.83-4.51); Absolute Neutrophil Count 6.8 X10^3/uL (2.0-7.7); Basophil# 0.09 X10^3/uL; Basophil% 0.9 % (0-1); Eosinophil# 0.07 X10^3/uL; Eosinophils% 0.7 % (0-5); Hematocrit 50.8 % (40-54); Hemoglobin 16.2 g/dL (13.0-16.5); Lymphocyte # 2.13 X10^3/ul (0.83-4.51); Lymphocyte % 20.9 % (19-41); Mean Corp Hgb Conc 31.9 g/dL (32-36); Mean Corpuscular Hgb 29.6 pg (27.0-32.0); Mean Corpuscular Volume 92.9 fL (80-94); Mean Platelet Vol. 9.8 fl (6.2-12.0); Monocyte# 0.87 X10^3/uL; Monocyte% 8.5 % (0-10); NRBC Flagged by Analyzer 0 % (0-5); Neutrophil # 6.82 X10^3/uL (2.7-7.7); Neutrophil % 66.7 % (47-70); Platelet Count 183 K/mm3 (150-450); RBC Distribution Width CV 14.6 % (11.6-14.6); RBC Distribution Width SD 50.4 fl (35.1-43.9); Red Blood Count 5.47 M/mm3 (4.6-6.2); White Blood Count 10.2 K/mm3 (4.4-11.0)
[2023-08-09 12:00] VITALS: BP 147/96; PULSE 92; RESP 22; TEMP 36.3; O2SAT 94
== END 2023-08-09 14:36 | disposition home or self-care (01) ==
PROVIDERS: Emergency Provider Emergency Medicine; PCP Family Medicine Geriatric Medicine; Visit Provider Emergency Medicine
DX: R06.02 Shortness of breath (principal); J44.9 Chronic obstructive pulmonary disease, unspecified; N18.30 Chronic kidney disease, stage 3 unspecified; Z87.891 Personal history of nicotine dependence; Z85.118 Personal history of other malignant neoplasm of bronchus and lung; Z85.51 Personal history of malignant neoplasm of bladder; E78.5 Hyperlipidemia, unspecified; Z86.73 Personal history of transient ischemic attack (TIA), and cerebral infarction without residual deficits; Z79.899 Other long term (current) drug therapy; K21.9 Gastro-esophageal reflux disease without esophagitis; G25.81 Restless legs syndrome; Z79.51 Long term (current) use of inhaled steroids; Z90.49 Acquired absence of other specified parts of digestive tract
CPT/HCPCS: 71045; 80048; 84484; 85025; 85379; 87631; 93005; 94640; 96374; 99283; A4216

== ENCOUNTER → 2023-09-19 | Outpatient (CLI) | payer MEDICARE, OTHER, SELFPAY ==
[2023-09-19 15:42] LABS: Absolute Lymphocyte Count 0.64 X10^3/uL (0.83-4.51); Absolute Neutrophil Count 9.9 X10^3/uL (2.0-7.7); Basophil# 0.04 X10^3/uL; Basophil% 0.3 % (0-1); Eosinophil# 0.05 X10^3/uL; Eosinophils% 0.4 % (0-5); Hemoglobin 17.5 g/dL (13.0-16.5); Lymphocyte # 0.64 X10^3/ul (0.83-4.51); Lymphocyte % 5.6 % (19-41); Mean Corp Hgb Conc 32.4 g/dL (32-36); Mean Corpuscular Hgb 29.9 pg (27.0-32.0); Mean Corpuscular Volume 92.2 fL (80-94); Mean Platelet Vol. 10.4 fl (6.2-12.0); Monocyte# 0.57 X10^3/uL; NRBC Flagged by Analyzer 0 % (0-5); Neutrophil # 9.91 X10^3/uL (2.7-7.7); Neutrophil % 86.3 % (47-70); POSITIVE MORPHOLOGY YES; Platelet Count 206 K/mm3 (150-450); RBC Distribution Width CV 16.4 % (11.6-14.6); RBC Distribution Width SD 52.8 fl (35.1-43.9); Red Blood Count 5.86 M/mm3 (4.6-6.2); White Blood Count 11.5 K/mm3 (4.4-11.0)
[2023-09-19 15:46] LABS: Differential Indicated SCAN CRITERIA MET
[2023-09-19 15:49] LABS: International Normalized Ratio 0.9; Prothrombin Time (Protime)PT. 12.4 SECONDS (11.7-14.9)
[2023-09-19 16:22] LABS: Anisocytosis RARE; Macrocytosis RARE; Platelet Estimate ADEQUATE (ADEQ); Red Cell Morphology N CHROM NORMAL (NORM C&C); Toxic Granulation 1+
[2023-09-19 17:29] LABS: Anion Gap 6 (5-15); BUN 29 mg/dL (7-18); BUN/Creat Ratio 14.9 RATIO (10-20); Calcium,Total 10.1 mg/dL (8.5-10.1); Chloride 105 mmol/L (98-107); Creatinine, Serum 1.94 mg/dL (0.70-1.30); EST Glomerular Filtration Rate 36 mL/min (>60); Est Glom Filt Rate - Afr Amer 43 mL/min (>60); Glucose 93 mg/dL (74-106); Potassium 4.5 mmol/L (3.5-5.1); Sodium Level 138 mmol/L (136-145)
== END | disposition home or self-care (01) ==
LOC: POLAB3 15:07
PROVIDERS: PCP Family Medicine Geriatric Medicine; Visit Provider Family Medicine Geriatric Medicine
DX: E78.5 Hyperlipidemia, unspecified (principal); I50.9 Heart failure, unspecified
CPT/HCPCS: 36415; 80048; 85025; 85610

== ENCOUNTER → 2023-09-26 | Outpatient (CLI) | payer MEDICARE, OTHER, SELFPAY ==
--- NOTE | 2023-09-26 06:44 | ECHOCS_ITS ---
Reason For Study: dyspnea Procedure This was a 2D Doppler, Color Flow transthoracic echocardiogram. The study was technically limited. The study was technically difficult. Due to body habitus. Contrast injection was performed. Exam performed in department. Left Ventricle Normal LV size. Left ventricular systolic function is normal. The estimated ejection fraction is 60 %. Stage 1 diastolic dysfunction. No regional wall motion abnormalities noted. Right Ventricle Normal RV size. Normal systolic function. Atria Normal left atrium. Normal right atrium. Mitral Valve Normal mitral valve. Tricuspid Valve Normal tricuspid valve. Mild (1+) tricuspid valve insufficiency. Pulmonary artery systolic pressure is 33 mmHg. Pericardium/Pleural No pericardial effusion. Medication 22 gauge I.V. with prn adaptor inserted into right arm. Diluted definity 3.0ml given slow IV push to enhance endocardial definition. MMode/2D Measurements & Calculations LVIDd: 4.6 cm IVSd: 1.0 cm Ao root diam: 3.5 cm LVIDs: 3.4 cm LVPWd: 1.0 cm RVDd: 3.2 cm FS: 26.2 % LAV(MOD-bp): 47.6 ml SV(MOD-sp4): 39.8 ml LVAd ap4: 28.1 cm2 LAV(MOD-bp) Indexed: 20.4 ml/m2 LVLd ap4: 8.9 cm LAV(MOD-sp2): 59.3 ml EDV(MOD-sp4): 76.3 ml LAV(MOD-sp4): 30.7 ml EDV(sp4-el): 75.5 ml LVAs ap4: 18.0 cm2 LVLs ap4: 7.7 cm ESV(MOD-sp4): 36.5 ml ESV(sp4-el): 35.8 ml EF(MOD-sp4): 52.2 % EF(sp4-el): 52.6 % SV(sp4-el): 39.7 ml LA dimension(2D): 2.7 cm LA A4 area: 12.7 cm2 TAPSE: 2.7 cm Time Measurements MV dec time: 0.31 sec Doppler Measurements & Calculations MV E max bereket: 58.8 cm/sec Lat Peak E' Bereket: 9.9 cm/sec Med Peak E' Bereket: 7.3 cm/sec MV A max bereket: 77.2 cm/sec E/E' lat: 5.9 E/E' med: 8.1 MV E/A: 0.76 MV V2 max: 75.2 cm/sec MV P1/2t max bereket: 62.7 cm/sec Ao V2 max: 144.4 cm/sec MV max P.3 mmHg MV P1/2t: 86.7 msec Ao max P.4 mmHg MV V2 mean: 44.0 cm/sec MV dec slope: 212.0 cm/sec2 Ao V2 mean: 100.6 cm/sec MV mean P.91 mmHg Ao mean P.6 mmHg MV V2 VTI: 17.7 cm MVA(P1/2t): 2.5 cm2 Ao V2 VTI: 24.3 cm AV (velocity ratio): 0.88 LV V1 max: 126.4 cm/sec PA V2 max: 99.0 cm/sec TR max bereket: 271.5 cm/sec LV V1 max P.4 mmHg PA V2 mean: 78.0 cm/sec TR max P.5 mmHg LV V1 mean P.0 mmHg LV V1 mean: 96.3 cm/sec LV V1 VTI: 21.3 cm ECHO/Echo Complete W/ Contrast Interpretation Summary Normal LV size. Left ventricular systolic function is normal. The estimated ejection fraction is 60 %. Stage 1 diastolic dysfunction. Contrast injection was performed. Ordering Physician: Dave Noble Referring Physician: Dave Noble Performed By: Daniella Penn RDCS, RVT
--- OUTSIDE RECORDS SUMMARY | 2023-09-26 06:51 | XMS RPT_ITS | CCD ---
Author Name Unknown Address [address] [place] [address] Organization [facility] Care Team Providers Care Greenhouse Specialist Name Role Phone Abby Blancoica N Unavailable Liam Blancossica N Unavailable Liam Blancossica N Unavailable Blanco, Lauren N Unavailable Margarita Otto Unavailable Ramesh, David Chi Primary Care Provider Chester BRUMFIELD MD, Renny Unavailable Doup RN, Nohelia Unavailable Unavailable Ramesh, David Chi Primary Care Provider Chester BRUMFIELD MD, Renny Unavailable Doup RN, Nohelia Unavailable Unavailable Masci DO, Dave A Unavailable Ramesh, David Chi Primary Care Provider Estella Pereira Unavailable Unavailabl e Ramesh, David Chi Primary Care Provider Chester BRUMFIELD MD, Markieung Unavailable Doup RN, Nohelia Unavailable Unavailable Masci DO, Dave A Unavailable Estella Pereira Unavailable Unavailabl e Diane RN, Nohelia Unavailable Unavailable RAMESH, DAVID CHI Primary Care Unavailable MASCI, DAVE A Referring Unavailable RAMESH, DAVID CHI Primary Care Unavailable MASCI, DAVE A Referring Unavailable RAMESH, DAVID CHI Primary Care Unavailable MASCI, DAVE A Referring Unavailable RAMESH, DAVID CHI Primary Care Unavailable REAL, DAVE A Referring Unavailable WARD BARRON Admitting Unavailable RAMESH, DAVID CHI Primary Care Unavailable WARD BARRON Attending Unavailable Renny Briggs MD Unavailable MASCI, DAVE Del Real Referring Unavailable RAMESH, DAVID CHI Primary Care Unavailable RMAESH, DAVID CHI Primary Care Unavailable RENNY BRIGGS Attending Unavailable RAMESH, DAVID CHI Primary Care Unavailable MASCI, DAVE Del Real Referring Unavailable RAMESH, DAVID CHI Primary Care Unavailable MASCI, DAVE Del Real Referring Unavailable RAMESH, DAVID CHI Primary Care Unavailable RAMESH, DAVID CHI Primary Care Unavailable RENNY BRIGGS Attending Unavailable RAMESH, DAVID CHI Primary Care Unavailable RENNY BRIGGS Attending Unavailable RAMESH, DAVID CHI Primary Care Unavailable MASCI, DAVE Del Real Referring Unavailable MASCI, DAVE Del Real Attending Unavailable RAMESH, DAVID CHI Primary Care Unavailable MARGARITA COLLINS Attending Unavailable RAMESH, DAVID CHI Primary Care Unavailable MASCI, DAVE Del Real Referring Unavailable RAMESH, DAVID CHI Primary Care Unavailable MASCI, DAVE Del Real Referring Unavailable RAMESH, DAVID CHI Primary Care Unavailable XUAN LORA Referring Unavailable RAMESH, DAVID CHI Primary Care Unavailable MASCI, DAVE Del Real Referring Unavailable RAMESH, DAVID CHI Primary Care Unavailable MASCI, DAVE A Referring Unavailable MASCI, DAVE Del Real Attending Unavailable RAMESH, DAVID CHI Primary Care Unavailable MARGARITA COLLINS Attending Unavailable RAMESH, DAVID CHI Primary Care Unavailable RAMESH, DAVID CHI Primary Care Unavailable MASCI, DAVE Del Real Referring Unavailable RAMESH, DAVID CHI Primary Care Unavailable MASCI, DAVE Del Real Referring Unavailable RAMESH, DAVID CHI Primary Care Unavailable MASCI, DAVE Del Real Referring Unavailable RAMESH, DAVID CHI Primary Care Unavailable MARGARITA COLLINS Referring Unavailable RAMESH, DAVID CHI Primary Care Unavailable XUAN LORA Attending Unavailable MASCI, DAVE Del Real Referring Unavailable RAMESH, DAVID CHI Primary Care Unavailable MASCI, DAVE Del Real Referring Unavailable MASCI, DAVE Del Real Attending Unavailable RAMESH, DAVID CHI Primary Care Unavailable MASCI, DAVE Del Real Referring Unavailable RAMESH, DAVID CHI Primary Care Unavailable VALENTINO FAGAN Attending Unavailable MASCI, DAVE Del Real Referring Unavailable RAMESH, DAVID CHI Primary Care Unavailable VALENTINO FAGAN Referring Unavailable RAMESH, DAVID CHI Primary Care Unavailable MASCI, DAVE A Referring Unavailable RAMESH, DAVID CHI Primary Care Unavailable MASCI, DAVE Del Real Referring Unavailable MASCI, DAVE Del Real Attending Unavailable RAMESH, DAVID CHI Primary Care Unavailable MASCI, DAVE A Referring Unavailable RAMESH, DAVID CHI Primary Care Unavailable MASCI, DAVE A Referring Unavailable RAMESH, DAVID CHI Primary Care Unavailable MASCI, DAVE A Referring Unavailable RENNY BRIGGS Attending Unavailable RAMESH, DAVID CHI Primary Care Unavailable RAMESH, DAVID CHI Primary Care Unavailable RAMESH, DAVID CHI Primary Care Unavailable VALENTINO FAGAN Referring Unavailable RAMESH, DAVID CHI Primary Care Unavailable MASCI, DAVE Del Real Referring Unavailable RAMESH, DAVID CHI Primary Care Unavailable MASCI, DAVE A Referring Unavailable MASCI, DAVE Del Real Attending Unavailable RAMESH, DAVID CHI Primary Care Unavailable MASCI, DAVE A Referring Unavailable RAMESH, DAVID CHI Primary Care Unavailable MASCI, DAVE A Referring Unavailable RAMESH, DAVID CHI Primary Care Unavailable ELLIE SHERMAN Attending Unavailable RAMESH, DAVID CHI Primary Care Unavailable MASCI, DAVE Del Real Referring Unavailable RAMESH, DAVID CHI Primary Care Unavailable ELLIE SHERMAN Attending Unavailable RAMESH, DAVID CHI Primary Care Unavailable MARGARITA COLLINS Attending Unavailable RAMESH, DAVID CHI Primary Care Unavailable MASCI, DAVE A Referring Unavailable RAMESH, DAVID CHI Primary Care Unavailable MASCI, DAVE A Referring Unavailable RAMESH, DAVID CHI Primary Care Unavailable RENNY BRIGGS Attending Unavailable RENNY BRIGGS Referring Unavailable RAMESH, DAVID CHI Primary Care Unavailable MASCI, DAVE A Referring Unavailable RAMESH, DAVID CHI Primary Care Unavailable MASCI, DAVE A Referring Unavailable RAMESH, DAVID CHI Primary Care Unavailable Medications Current Medications Medication Drug Class(es) Dates Sig (Normalized) Sig (Original) albuterol 0.83 mg/ml inhalation solution (20 sources) beta2-Adrenergic Agonist Start: 08-16-2023 End: 11-14-2023 take 2.5 mg by inhalation every four hours as needed albuterol (PROVENTIL) 2.5 mg /3 mL (0.083 %) nebulizer solution Use 3 mL via nebulizer every 4 hours as needed for wheezing/shortnes s of breath. OVER 5-15 MINUTES. FOR WHEEZING AND SHORTNESS OF BREATH. 120 mL 3 08/16/2023 11/14/2023 Active Completed/Discontinued Medications Medication Drug Class(es) Dates Sig (Normalized) Sig (Original) acetaminophen 500 mg oral tablet (20 sources) acetaminophen (T YLENOL EXTRA STRENGTH) 500 mg tablet Take 500 mg by mouth as needed. 0 Active Problems Active Problems Problem Classification Problem Date Documented Date Episodic/Chronic Acute bronchitis (1 source) Acute bronchitis; Translations: [Acute bronchitis, unspecified] 04-24-2023 Episodic Allergic reactions (1 source) Eruption due to drug; Translations: [Generalized skin eruption due to drugs and medicaments taken internally] Episodic Cancer of bladder (20 sources) Malignant tumor of urinary bladder; Translations: [Malignant neoplasm of bladder, unspecified] Onset: 11-03-2021 Chronic Cancer of bronchus; lung (20 sources) Malignant neoplasm of right upper lobe of lung; Translations: [Malignant neoplasm of upper lobe,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 or lung] Onset: 09-24-2016 09-24-2016 Chronic Cancer of kidney and renal pelvis (20 sources) Renal cell carcinoma; Translations: [Malignant neoplasm of unspecified kidney, except renal pelvis] Onset: 11-03-2021 Chronic Cancer; other respiratory and intrathoracic (20 sources) Malignant neoplasm of lower respiratory tract; 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] Onset: 11-03-2021 Chronic Cardiac dysrhythmias (5 sources) Ventricular premature beats; Translations: [Ventricular premature depolarization] Onset: 03-30-2015 03-30-2015 Chronic Chronic kidney disease (20 sources) Chronic kidney disease stage 3B ; Translations: [Stage 3b chronic kidney disease (HCC)] Onset: 11-03-2021 Chronic Chronic obstructive pulmonary disease and bronchiectasis (20 sources) Chronic obstructive lung disease; Translations: [Chronic obstructive pulmonary disease, unspecified] 10-22-2019 Chronic Diseases of white blood cells (1 source) Leukocytosis; Translations: [Elevated white blood cell count, unspecified] Chronic Esophageal disorders (20 sources) Gastroesophageal reflux disease; Translations: [Gastro-esophageal reflux disease without esophagitis] Onset: 11-03-2021 Chronic Genitourinary symptoms and ill-defined conditions (1 source) Urgent desire to urinate; Translations: [Urgency of urination] Episodic Gout and other crystal arthropathies (20 sources) Gout; Translations: [Gout, unspecified] Onset: 11-03-2021 Chronic Heart valve disorders (1 source) Non-rheumatic mitral regurgitation ; Translations: [Nonrheumatic mitral (valve) insufficiency] 09-13-2023 Chronic Lung disease due to external agents (1 source) 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; Translations: [Chronic and other pulmonary manifestations due to radiation] 04-24-2023 Chronic Lung disease due to external agents (2 sources) Radiation pneumonitis; Translations: [Acute pulmonary manifestations due to radiation] Episodic Mycoses (1 source) Candidiasis of mouth; Translations: [Candidal stomatitis] Episodic Other aftercare (1 source) Long-term current use of systemic steroid; Translations: [shelter (current) use of systemic steroids] Episodic Other endocrine disorders (20 sources) Adrenal cortical hypofunction; Translations: [Unspecified adrenocortical insufficiency] Onset: 10-09-2021 10-09-2021 Chronic Other hereditary and degenerative nervous system conditions (20 sources) Restless legs; Translations: [Restless legs syndrome] Onset: 11-03-2021 Chronic Other lower respiratory disease (6 sources) Interstitial lung disease; Translations: [Interstitial pulmonary disease, unspecified] Chronic Other lower respiratory disease (1 source) Interstitial pulmonary disease, unspecified; Translations: [Interstitial pulmonary disease (HCC)] Onset: 11-05-2022 Chronic Other lower respiratory disease (3 sources) Disorder of lung; Translations: [Other disorders of lung] Episodic Other lower respiratory disease (2 sources) Multiple nodules of lung; Translations: [Other nonspecific abnormal finding of lung field] Episodic Other lower respiratory disease (1 source) Nodule of lung; Translations: [Solitary pulmonary nodule] Episodic Other lower respiratory disease (5 sources) Dyspnea; Translations: [Shortness of breath] Episodic Other lower respiratory disease (2 sources) Other nonspecific abnormal finding of lung field; Translations: [Other nonspecific abnormal finding of lung field] Episodic Other non-epithelial cancer of skin (20 sources) Malignant neoplasm of skin; Translations: [Unspecified malignant neoplasm of skin, unspecified] 09-26-2017 Episodic [place]-; endo-; and myocarditis; cardiomyopathy (except that caused by tuberculosis or sexually transmitted disease) (5 sources) Cardiomyopathy in diseases classified elsewhere; Translations: [Cardiomyopathy in diseases classified elsewhere] Onset: 03-30-2015 03-30-2015 Chronic Residual codes; unclassified (20 sources) Obstructive sleep apnea syndrome; Translations: [Obstructive sleep apnea (adult) (pediatric)] Onset: 11-03-2021 Chronic Secondary malignancies (20 sources) Secondary malignant neoplasm of bilateral lungs; Translations: [Secondary malignant neoplasm of right lung] Onset: 05-24-2022 Chronic Secondary malignancies (2 sources) Secondary malignant neoplasm of right lung; Translations: [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)] Onset: 05-24-2022 Chronic Secondary malignancies (2 sources) Secondary malignant neoplasm of left lung; Translations: [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)] Onset: 05-24-2022 Chronic Spondylosis; intervertebral disc disorders; other back problems (5 sources) Lumbar disc prolapse with radiculopathy; Translations: [Intervertebral disc disorders with radiculopathy, lumbar region] Onset: 12-11-2016 12-16-2016 Chronic Unclassified (5 sources) Aftercare ; Translations: [Encounter for other specified surgical aftercare] Onset: 10-26-2013 10-30-2013 Unclassified (1 source) Radiology NM Onset: 10-02-2022 Past or Other Problems Problem Classification Problem Date Documented Date Episodic/Chronic Deficiency and other anemia (20 sources) Megaloblastic anemia due to vitamin B>12< deficiency; Translations: [Other megaloblastic anemias, not elsewhere classified] Onset: 06-05-2021 06-05-2021 Episodic Fluid and electrolyte disorders (20 sources) Dehydration; Translations: [Dehydration] Onset: 08-11-2021 08-11-2021 Episodic Neoplasms of unspecified nature or uncertain behavior (5 sources) Neoplasm of unspecified behavior of bone, soft tissue, and skin; Translations: [Neoplasm of unspecified behavior of bone, soft tissue, and skin] Onset: 10-13-2013 10-13-2013 Episodic Other connective tissue disease (20 sources) History of lumbar fusion; Translations: [Arthrodesis status] Onset: 11-03-2021 Episodic Other inflammatory condition of skin (7 sources) Keratoderma, acquired; Translations: [Unspecified hypertrophic and atrophic conditions of skin] Onset: 10-13-2013 11-11-2013 Episodic Other lower respiratory disease (20 sources) Abnormal findings on diagnostic imaging of lung; Translations: [Other nonspecific abnormal finding of lung field] Onset: 10-22-2019 05-16-2021 Episodic Other lower respiratory disease (20 sources) Dyspnea on exertion; Translations: [Dyspnea, unspecified] Onset: 10-22-2019 10-22-2019 Episodic Other lower respiratory disease (20 sources) Cough; Translations: [Cough] Onset: 10-22-2019 10-22-2019 Episodic Other lower respiratory disease (7 sources) Chronic cough; Translations: [Chronic cough] Onset: 10-22-2019 Episodic Other screening for suspected conditions (not mental disorders or infectious disease) (1 source) Abnormal coagulation profile; Translations: [Coagulation test abnormality] Onset: 05-14-2023 Episodic Other skin disorders (8 sources) Unspecified hypertrophic and atrophic conditions of skin; Translations: [Unspecified hypertrophic and atrophic conditions of skin] Onset: 10-13-2013 10-13-2013 Episodic Pneumonia (except that caused by tuberculosis or sexually transmitted disease) (3 sources) Pneumonitis; Translations: [Pneumonia, unspecified organism] Onset: 10-02-2022 Episodic Pulmonary heart disease (20 sources) Pulmonary embolism; Translations: [Other pulmonary embolism without acute cor pulmonale] Onset: 04-18-2018 04-18-2018 Episodic Residual codes; unclassified (5 sources) Family history of malignant neoplasm of skin; Translations: [Family history of malignant neoplasm of other organs or systems] Onset: 10-13-2013 10-13-2013 Episodic Spondylosis; intervertebral disc disorders; other back problems (5 sources) Backache; Translations: [Dorsalgia, unspecified] Onset: 12-11-2016 12-11-2016 Episodic Results Test Name Value Interpretation Reference Range Facil it Vital Signs Date Time Vital Sign Value Performing Clinician Facility 09-10-2023 09:04-0500 Body temperature 98.2 [degF] Dave [employer] DO Work Phone: [facility] 09-10-2023 08:56-0500 Body weight 113.17 kg Dave [employer] Work Phone: [facility] 09-10-2023 08:56-0500 Diastolic blood pressure 77 mm[Hg] Dave FUJIAN HAIYUAN DO Work Phone: [facility] 09-10-2023 08:56-0500 Heart rate 96 /min Dave FUJIAN HAIYUAN DO Work Phone: [facility] 09-10-2023 08:56-0500 Respiratory rate 17 /min Dave [employer] DO Work Phone: [facility] 09-10-2023 08:56-0500 SaO2% (BldA) [Mass fraction] 96 % Dave Elenai DO Work Phone: [facility] 09-10-2023 08:56-0500 Systolic blood pressure 110 mm[Hg] Dave Elenai DO Work Phone: [facility] 06-19-2023 09:36-0500 Body temperature 97.3 [degF] Renny Briggs MD, MD Work Phone: [facility] 06-19-2023 09:36-0500 Diastolic blood pressure 86 mm[Hg] Renny Briggs MD, MD Work Phone: [facility] 06-19-2023 09:36-0500 Heart rate 90 /min Renny Briggs MD, MD Work Phone: [facility] 06-19-2023 09:36-0500 SaO2% (BldA) [Mass fraction] 95 % Renny Briggs MD, MD Work Phone: [facility] 06-19-2023 09:36-0500 Systolic blood pressure 127 mm[Hg] Renny Briggs MD, MD Work Phone: [facility] 04-24-2023 12:56-0400 Body weight 100.7 kg Ellie Sharon PA-C Work Phone: [facility] 04-24-2023 12:56-0400 Diastolic blood pressure 62 mm[Hg] Ellie Sharon PA-C Work Phone: [facility] 04-24-2023 12:56-0400 Heart rate 96 /min Ellie Sharon PA-C Work Phone: [facility] 04-24-2023 12:56-0400 Respiratory rate 17 /min Ellie Sharon PA-C Work Phone: [facility] 04-24-2023 12:56-0400 SaO2% (BldA) [Mass fraction] 96 % Ellie Sharon PA-C Work Phone: [facility] 04-24-2023 12:56-0400 Systolic blood pressure 124 mm[Hg] Ellie Sharon PA-C Work Phone: [facility] 03-04-2023 14:50-0400 Body temperature 97 [degF] Dave Noble DO Work Phone: [facility] 03-04-2023 14:50-0400 Body weight 98.88 kg Dave Masci DO Work Phone: [facility] 03-04-2023 14:50-0400 Diastolic blood pressure 75 mm[Hg] Dave Masci DO Work Phone: [facility] 03-04-2023 14:50-0400 Heart rate 88 /min Dave Masci DO Work Phone: [facility] 03-04-2023 14:50-0400 SaO2% (BldA) [Mass fraction] 99 % Dave Masci DO Work Phone: [facility] 03-04-2023 14:50-0400 Systolic blood pressure 116 mm[Hg] Dave Masci DO Work Phone: [facility] 02-04-2023 12:26-0400 Body temperature 96.8 [degF] Valentino Fagan MD Work Phone: [facility] 02-04-2023 12:26-0400 Body weight 100.47 kg Valentino Fagan MD Work Phone: [facility] 02-04-2023 12:26-0400 Diastolic blood pressure 87 mm[Hg] Valentino Fagan MD Work Phone: [facility] 02-04-2023 12:26-0400 Heart rate 85 /min Valentino Fagan MD Work Phone: [facility] 02-04-2023 12:26-0400 SaO2% (BldA) [Mass fraction] 95 % Valentino Fagan MD Work Phone: [facility] 02-04-2023 12:26-0400 Systolic blood pressure 120 mm[Hg] Valentino Fagan MD Work Phone: [facility] 12-03-2022 09:37-0400 Body temperature 97.9 [degF] Dave Masci DO Work Phone: [facility] 12-03-2022 09:37-0400 Body weight 102.06 kg Dave Masci DO Work Phone: [facility] 12-03-2022 09:37-0400 Diastolic blood pressure 91 mm[Hg] Dave Noble DO Work Phone: [facility] 12-03-2022 09:37-0400 Heart rate 74 /min Dave Parkeri DO Work Phone: [facility] 12-03-2022 09:37-0400 SaO2% (BldA) [Mass fraction] 97 % Dave Noble DO Work Phone: [facility] 12-03-2022 09:37-0400 Systolic blood pressure 136 mm[Hg] Dave Parkeri DO Work Phone: [facility] 11-13-2022 09:00-0400 Body temperature 97.59 [degF] Treatment Wstr Work Phone: [facility] 11-13-2022 09:00-0400 Body weight 102.06 kg Treatment Wstr Work Phone: [facility] 11-13-2022 09:00-0400 Diastolic blood pressure 75 mm[Hg] Treatment Wstr Work Phone: [facility] 11-13-2022 09:00-0400 Heart rate 83 /min Treatment Wstr Work Phone: [facility] 11-13-2022 09:00-0400 Respiratory rate 18 /min Treatment Wstr Work Phone: [facility] 11-13-2022 09:00-0400 SaO2% (BldA) [Mass fraction] 96 % Treatment Wstr Work Phone: [facility] 11-13-2022 09:00-0400 Systolic blood pressure 112 mm[Hg] Treatment Wstr Work Phone: [facility] 11-06-2022 13:00-0400 Body temperature 97.81 [degF] Treatment Wstr Work Phone: [facility] 11-06-2022 13:00-0400 Diastolic blood pressure 65 mm[Hg] Treatment Wstr Work Phone: [facility] 11-06-2022 13:00-0400 Heart rate 97 /min Treatment Wstr Work Phone: [facility] 11-06-2022 13:00-0400 Respiratory rate 18 /min Treatment Wstr Work Phone: [facility] 11-06-2022 13:00-0400 SaO2% (BldA) [Mass fraction] 99 % Treatment Wstr Work Phone: [facility] 11-06-2022 13:00-0400 Systolic blood pressure 109 mm[Hg] Treatment Wstr Work Phone: [facility] 11-05-2022 09:26-0400 Body height 186 cm Xuan Lora [employer] DEVELOPER[employer] Work Phone: [facility] 11-05-2022 09:26-0400 Body temperature 97.11 [degF] Xuan Lora PY[employer]ON DEVELOPER[employer] PIPE INSPECTOR Work Phone: [facility] 11-05-2022 09:26-0400 Body weight 104.33 kg Xuan Lora PYTHON DEVELOPER[employer] PIPE INSPECTOR Work Phone: [facility] 11-05-2022 09:26-0400 Diastolic blood pressure 76 mm[Hg] Xuan Lora PYTHON DEVELOPER[employer]IL PIPE INSPECTOR Work Phone: [facility] 11-05-2022 09:26-0400 Heart rate 79 /min Xuan Lora PYTHON DEVELOPER[employer]IL PIPE INSPECTOR Work Phone: [facility] 11-05-2022 09:26-0400 SaO2% (BldA) [Mass fraction] 97 % Xuan Lora PYTHON DEVELOPER[employer]OIL PIPE INSPECTOR Work Phone: [facility] 11-05-2022 09:26-0400 Systolic blood pressure 119 mm[Hg] Xuan Lora PYTHON DEVELOPER[employer] PIPE INSPECTOR Work Phone: [facility] 10-23-2022 09:00-0400 Body temperature 96.8 [degF] Treatment Wstr Work Phone: [facility] 10-23-2022 09:00-0400 Diastolic blood pressure 75 mm[Hg] Treatment Wstr Work Phone: [facility] 10-23-2022 09:00-0400 Heart rate 94 /min Treatment Wstr Work Phone: [facility] 10-23-2022 09:00-0400 Systolic blood pressure 121 mm[Hg] Treatment Wstr Work Phone: [facility] 10-09-2022 10:29-0500 Body temperature 97.3 [degF] Treatment Wstr Work Phone: [facility] 10-09-2022 10:29-0500 Diastolic blood pressure 68 mm[Hg] Treatment Wstr Work Phone: [facility] 10-09-2022 10:29-0500 Heart rate 98 /min Treatment Wstr Work Phone: [facility] 10-09-2022 10:29-0500 Respiratory rate 16 /min Treatment Wstr Work Phone: [facility] 10-09-2022 10:29-0500 SaO2% (BldA) [Mass fraction] 96 % Treatment Wstr Work Phone: [facility] 10-09-2022 10:29-0500 Systolic blood pressure 116 mm[Hg] Treatment Wstr Work Phone: [facility] 10-08-2022 09:06-0500 Body temperature 98.6 [degF] Dave Masci DO Work Phone: [facility] 10-08-2022 09:06-0500 Body weight 104.33 kg Dave Masci DO Work Phone: [facility] 10-08-2022 09:06-0500 Diastolic blood pressure 76 mm[Hg] Dave Masci DO Work Phone: [facility] 10-08-2022 09:06-0500 Heart rate 95 /min Dave Masci DO Work Phone: [facility] 10-08-2022 09:06-0500 SaO2% (BldA) [Mass fraction] 97 % Dave Masci DO Work Phone: [facility] 10-08-2022 09:06-0500 Systolic blood pressure 125 mm[Hg] Dave Real DO Work Phone: [facility] 09-25-2022 10:00-0500 Body weight 106.59 kg Treatment Wstr Work Phone: [facility] 09-25-2022 10:00-0500 Diastolic blood pressure 62 mm[Hg] Treatment Wstr Work Phone: [facility] 09-25-2022 10:00-0500 Heart rate 98 /min Treatment Wstr Work Phone: [facility] 09-25-2022 10:00-0500 Respiratory rate 18 /min Treatment Wstr Work Phone: [facility] 09-25-2022 10:00-0500 SaO2% (BldA) [Mass fraction] 96 % Treatment Wstr Work Phone: [facility] 09-25-2022 10:00-0500 Systolic blood pressure 103 mm[Hg] Treatment Wstr Work Phone: [facility] 09-18-2022 13:00-0500 Body temperature 97.3 [degF] Treatment Wstr Work Phone: [facility] 09-18-2022 13:00-0500 Body weight 107.05 kg Treatment Wstr Work Phone: [facility] 09-18-2022 13:00-0500 Diastolic blood pressure 71 mm[Hg] Treatment Wstr Work Phone: [facility] 09-18-2022 13:00-0500 Heart rate 83 /min Treatment Wstr Work Phone: [facility] 09-18-2022 13:00-0500 Respiratory rate 20 /min Treatment Wstr Work Phone: [facility] 09-18-2022 13:00-0500 SaO2% (BldA) [Mass fraction] 95 % Treatment Wstr Work Phone: [facility] 09-18-2022 13:00-0500 Systolic blood pressure 132 mm[Hg] Treatment Wstr Work Phone: [facility] 09-17-2022 13:02-0500 Body weight 105.69 kg Ellie Onealone PA-C Work Phone: [facility] 09-17-2022 13:02-0500 Diastolic blood pressure 82 mm[Hg] Ellie Sharon PA-C Work Phone: [facility] 09-17-2022 13:02-0500 Heart rate 89 /min Ellie Sharon PA-C Work Phone: [facility] 09-17-2022 13:02-0500 Respiratory rate 17 /min Ellie Sharon PA-C Work Phone: [facility] 09-17-2022 13:02-0500 SaO2% (BldA) [Mass fraction] 100 % Ellie Onealone PA-C Work Phone: [facility] 09-17-2022 13:02-0500 Systolic blood pressure 124 mm[Hg] Ellie Onealone PA-C Work Phone: [facility] 09-11-2022 09:39-0500 Body temperature 97.59 [degF] Treatment Wstr Work Phone: [facility] 09-11-2022 09:39-0500 Diastolic blood pressure 87 mm[Hg] Treatment Wstr Work Phone: [facility] 09-11-2022 09:39-0500 Heart rate 93 /min Treatment Wstr Work Phone: [facility] 09-11-2022 09:39-0500 Respiratory rate 16 /min Treatment Wstr Work Phone: [facility] 09-11-2022 09:39-0500 SaO2% (BldA) [Mass fraction] 97 % Treatment Wstr Work Phone: [facility] 09-11-2022 09:39-0500 Systolic blood pressure 128 mm[Hg] Treatment Wstr Work Phone: [facility] 08-28-2022 13:38-0500 Body temperature 96.4 [degF] Treatment Wstr Work Phone: [facility] 08-28-2022 13:38-0500 Body weight 104.78 kg Treatment Wstr Work Phone: [facility] 08-28-2022 13:38-0500 Diastolic blood pressure 86 mm[Hg] Treatment Wstr Work Phone: [facility] 08-28-2022 13:38-0500 Heart rate 93 /min Treatment Wstr Work Phone: [facility] 08-28-2022 13:38-0500 Respiratory rate 16 /min Treatment Wstr Work Phone: [facility] 08-28-2022 13:38-0500 SaO2% (BldA) [Mass fraction] 99 % Treatment Wstr Work Phone: [facility] 08-28-2022 13:38-0500 Systolic blood pressure 146 mm[Hg] Treatment Wstr Work Phone: [facility] 08-21-2022 10:48-0500 Body temperature 97.81 [degF] Treatment Wstr Work Phone: [facility] 08-21-2022 10:48-0500 Diastolic blood pressure 86 mm[Hg] Treatment Wstr Work Phone: [facility] 08-21-2022 10:48-0500 Heart rate 72 /min Treatment Wstr Work Phone: [facility] 08-21-2022 10:48-0500 Respiratory rate 18 /min Treatment Wstr Work Phone: [facility] 08-21-2022 10:48-0500 SaO2% (BldA) [Mass fraction] 100 % Treatment Wstr Work Phone: [facility] 08-21-2022 10:48-0500 Systolic blood pressure 149 mm[Hg] Treatment Wstr Work Phone: [facility] 08-14-2022 09:55-0500 Body temperature 97.9 [degF] Treatment Wstr Work Phone: [facility] 08-14-2022 09:55-0500 Diastolic blood pressure 95 mm[Hg] Treatment Wstr Work Phone: [facility] 08-14-2022 09:55-0500 Heart rate 82 /min Treatment Wstr Work Phone: [facility] 08-14-2022 09:55-0500 Systolic blood pressure 138 mm[Hg] Treatment Wstr Work Phone: [facility] 08-13-2022 08:56-0500 Body temperature 97.2 [degF] Dave Masci DO Work Phone: [facility] 08-13-2022 08:56-0500 Body weight 102.97 kg Dave Masci DO Work Phone: [facility] 08-13-2022 08:56-0500 Diastolic blood pressure 76 mm[Hg] Dave Masci DO Work Phone: [facility] 08-13-2022 08:56-0500 Heart rate 88 /min Dave Masci DO Work Phone: [facility] 08-13-2022 08:56-0500 SaO2% (BldA) [Mass fraction] 100 % Dave Masci DO Work Phone: [facility] 08-13-2022 08:56-0500 Systolic blood pressure 112 mm[Hg] Dave Masci DO Work Phone: [facility] 07-31-2022 13:55-0500 Body temperature 96.8 [degF] Treatment Wstr Work Phone: [facility] 07-31-2022 13:55-0500 Diastolic blood pressure 75 mm[Hg] Treatment Wstr Work Phone: [facility] 07-31-2022 13:55-0500 Heart rate 97 /min Treatment Wstr Work Phone: [facility] 07-31-2022 13:55-0500 Respiratory rate 18 /min Treatment Wstr Work Phone: [facility] 07-31-2022 13:55-0500 Systolic blood pressure 129 mm[Hg] Treatment Wstr Work Phone: [facility] 07-24-2022 09:00-0500 Body temperature 98.01 [degF] Treatment Wstr Work Phone: [facility] 07-24-2022 09:00-0500 Diastolic blood pressure 57 mm[Hg] Treatment Wstr Work Phone: [facility] 07-24-2022 09:00-0500 Heart rate 94 /min Treatment Wstr Work Phone: [facility] 07-24-2022 09:00-0500 Systolic blood pressure 114 mm[Hg] Treatment Wstr Work Phone: [facility] 07-17-2022 09:46-0500 Body temperature 97.2 [degF] Treatment Wstr Work Phone: [facility] 07-17-2022 09:46-0500 Diastolic blood pressure 88 mm[Hg] Treatment Wstr Work Phone: [facility] 07-17-2022 09:46-0500 Heart rate 74 /min Treatment Wstr Work Phone: [facility] 07-17-2022 09:46-0500 Respiratory rate 16 /min Treatment Wstr Work Phone: [facility] 07-17-2022 09:46-0500 SaO2% (BldA) [Mass fraction] 97 % Treatment Wstr Work Phone: [facility] 07-17-2022 09:46-0500 Systolic blood pressure 135 mm[Hg] Treatment Wstr Work Phone: [facility] 07-16-2022 09:13-0500 Body temperature 97 [degF] Dave Noble DO Work Phone: [facility] 07-16-2022 09:13-0500 Body weight 103.19 kg Dave Parkeri DO Work Phone: [facility] 07-16-2022 09:13-0500 Diastolic blood pressure 69 mm[Hg] Dave Noble DO Work Phone: [facility] 07-16-2022 09:13-0500 Heart rate 90 /min Dave Noble DO Work Phone: [facility] 07-16-2022 09:13-0500 SaO2% (BldA) [Mass fraction] 100 % Dave Noble DO Work Phone: [facility] 07-16-2022 09:13-0500 Systolic blood pressure 97 mm[Hg] Dave Noble DO Work Phone: [facility] 07-03-2022 14:00-0500 Body temperature 97.5 [degF] Treatment Wstr Work Phone: [facility] 07-03-2022 14:00-0500 Body weight 102.29 kg Treatment Wstr Work Phone: [facility] 07-03-2022 14:00-0500 Diastolic blood pressure 67 mm[Hg] Treatment Wstr Work Phone: [facility] 07-03-2022 14:00-0500 Heart rate 93 /min Treatment Wstr Work Phone: [facility] 07-03-2022 14:00-0500 Respiratory rate 18 /min Treatment Wstr Work Phone: [facility] 07-03-2022 14:00-0500 SaO2% (BldA) [Mass fraction] 97 % Treatment Wstr Work Phone: [facility] 07-03-2022 14:00-0500 Systolic blood pressure 128 mm[Hg] Treatment Wstr Work Phone: [facility] 06-26-2022 09:39-0500 Body temperature 97.9 [degF] Treatment Wstr Work Phone: [facility] 06-26-2022 09:39-0500 Diastolic blood pressure 80 mm[Hg] Treatment Wstr Work Phone: [facility] 06-26-2022 09:39-0500 Heart rate 77 /min Treatment Wstr Work Phone: [facility] 06-26-2022 09:39-0500 SaO2% (BldA) [Mass fraction] 96 % Treatment Wstr Work Phone: [facility] 06-26-2022 09:39-0500 Systolic blood pressure 130 mm[Hg] Treatment Wstr Work Phone: [facility] 06-19-2022 09:00-0500 Body temperature 97.81 [degF] Treatment Wstr Work Phone: [facility] 06-19-2022 09:00-0500 Diastolic blood pressure 78 mm[Hg] Treatment Wstr Work Phone: [facility] 06-19-2022 09:00-0500 Heart rate 71 /min Treatment Wstr Work Phone: [facility] 06-19-2022 09:00-0500 Systolic blood pressure 140 mm[Hg] Treatment Wstr Work Phone: [facility] 05-31-2022 12:46-0400 Body height 188 cm Respiratory Wstr Work Phone: [facility] 05-31-2022 12:46-0400 Body weight 102.83 kg Respiratory Wstr Work Phone: [facility] 05-31-2022 12:46-0400 Heart rate 101 /min Respiratory Wstr Work Phone: [facility] 05-31-2022 12:46-0400 Respiratory rate 14 /min Respiratory Wstr Work Phone: [facility] 05-31-2022 12:46-0400 SaO2% (BldA) [Mass fraction] 100 % Respiratory Wstr Work Phone: [facility] 05-24-2022 08:29-0400 Body temperature 97.5 [degF] Dave Masci DO Work Phone: [facility] 05-24-2022 08:29-0400 Body weight 102.51 kg Dave Masci DO Work Phone: [facility] 05-24-2022 08:29-0400 Diastolic blood pressure 81 mm[Hg] Dave Masci DO Work Phone: [facility] 05-24-2022 08:29-0400 Heart rate 96 /min Dave Parkeri DO Work Phone: [facility] 05-24-2022 08:29-0400 SaO2% (BldA) [Mass fraction] 93 % Dave Elenai DO Work Phone: [facility] 05-24-2022 08:29-0400 Systolic blood pressure 120 mm[Hg] Dave Elenai DO Work Phone: [facility] 03-19-2022 10:56-0400 Body temperature 97.2 [degF] Renny Briggs MD, MD Work Phone: [facility] 03-19-2022 10:56-0400 Body weight 102.51 kg Renny Briggs MD, MD Work Phone: [facility] 03-19-2022 10:56-0400 Diastolic blood pressure 72 mm[Hg] Renny Briggs MD, MD Work Phone: [facility] 03-19-2022 10:56-0400 Heart rate 85 /min Renny Briggs MD, MD Work Phone: [facility] 03-19-2022 10:56-0400 Respiratory rate 24 /min Renny Briggs MD, MD Work Phone: [facility] 03-19-2022 10:56-0400 SaO2% (BldA) [Mass fraction] 96 % Renny Briggs MD, MD Work Phone: [facility] 03-19-2022 10:56-0400 Systolic blood pressure 109 mm[Hg] Renny Briggs MD, MD Work Phone: [facility] 03-19-2022 08:26-0400 Body temperature 97.2 [degF] Dave Elenai DO Work Phone: [facility] 03-19-2022 08:26-0400 Body weight 102.51 kg Dave Elenai DO Work Phone: [facility] 03-19-2022 08:26-0400 Diastolic blood pressure 72 mm[Hg] Dave Elenai DO Work Phone: [facility] 03-19-2022 08:26-0400 Heart rate 85 /min Dave Masci DO Work Phone: [facility] 03-19-2022 08:26-0400 SaO2% (BldA) [Mass fraction] 96 % Dave Masci DO Work Phone: [facility] 03-19-2022 08:26-0400 Systolic blood pressure 109 mm[Hg] Dave Masci DO Work Phone: [facility] 02-14-2022 08:28-0400 Body temperature 98.4 [degF] [place] Lora [employer]ON DEVELOPER.[employer]IL PIPE INSPECTOR Work Phone: [facility] 02-14-2022 08:28-0400 Body weight 102.97 kg [place] Lora [employer]ON DEVELOPER.[employer] PIPE INSPECTOR Work Phone: [facility] 02-14-2022 08:28-0400 Diastolic blood pressure 67 mm[Hg] [place] Lora PYTHON DEVELOPER.OIL PIPE INSPECTOR Work Phone: [facility] 02-14-2022 08:28-0400 Heart rate 93 /min [place] L[place] PYTHON DEVELOPER.OIL PIPE INSPECTOR Work Phone: [facility] 02-14-2022 08:28-0400 SaO2% (BldA) [Mass fraction] 96 % [place] PYTHON DEVELOPER.OIL PIPE INSPECTOR Work Phone: [facility] 02-14-2022 08:28-0400 Systolic blood pressure 108 mm[Hg] Xuan Lora PYTHON DEVELOPER.OIL PIPE INSPECTOR Work Phone: [facility] 01-23-2022 16:02-0400 Body temperature 98.2 [degF] Dave Masci DO Work Phone: [facility] 01-23-2022 16:02-0400 Body weight 100.92 kg Dave Masci DO Work Phone: [facility] 01-23-2022 16:02-0400 Diastolic blood pressure 78 mm[Hg] Dave Masci DO Work Phone: [facility] 01-23-2022 16:02-0400 Heart rate 97 /min Dave Masci DO Work Phone: [facility] 01-23-2022 16:02-0400 SaO2% (BldA) [Mass fraction] 95 % Dave Noble DO Work Phone: [facility] 01-23-2022 16:02-0400 Systolic blood pressure 111 mm[Hg] Dave Noble DO Work Phone: [facility] 01-04-2022 13:55-0400 Body temperature 97.59 [degF] Treatment Wstr Work Phone: [facility] 01-04-2022 13:55-0400 Diastolic blood pressure 79 mm[Hg] Treatment Wstr Work Phone: [facility] 01-04-2022 13:55-0400 Heart rate 94 /min Treatment Wstr Work Phone: [facility] 01-04-2022 13:55-0400 Respiratory rate 20 /min Treatment Wstr Work Phone: [facility] 01-04-2022 13:55-0400 Systolic blood pressure 138 mm[Hg] Treatment Wstr Work Phone: [facility] 01-02-2022 11:12-0400 Body temperature 98.1 [degF] Xuan Lora PYTHON DEVELOPER.OIL PIPE INSPECTOR Work Phone: [facility] 01-02-2022 11:12-0400 Body weight 100.7 kg Xuan Lora PYTHON DEVELOPER.OIL PIPE INSPECTOR Work Phone: [facility] 01-02-2022 11:12-0400 Diastolic blood pressure 86 mm[Hg] [place] L[place] PY[employer]ON DEVELOPER.OIL PIPE INSPECTOR Work Phone: [facility] 01-02-2022 11:12-0400 Heart rate 86 /min Xuan Lora PYTHON DEVELOPER.OIL PIPE INSPECTOR Work Phone: [facility] 01-02-2022 11:12-0400 SaO2% (BldA) [Mass fraction] 95 % [place] Lora PYTHON DEVELOPER.OIL PIPE INSPECTOR Work Phone: [facility] 01-02-2022 11:12-0400 Systolic blood pressure 122 mm[Hg] Xuan Lora PYTHON DEVELOPER.OIL PIPE INSPECTOR Work Phone: [facility] 12-11-2021 12:22040 Body height 190.5 cm Margarita Collins MD Work Phone: [facility] 12-11-2021 12:220400 Body weight 102.78 kg Margarita Collins MD Work Phone: [facility] 12-11-2021 12:22-0400 Diastolic blood pressure 85 mm[Hg] Margarita Collins MD Work Phone: [facility] 12-11-2021 12:220400 Heart rate 95 /min Margarita Collins MD Work Phone: [facility] 12-11-2021 12:220400 Respiratory rate 18 /min Margarita Collins MD Work Phone: [facility] 12-11-2021 12:220400 SaO2% (BldA) [Mass fraction] 96 % Margarita Collins MD Work Phone: [facility] 12-11-2021 12:220400 Systolic blood pressure 145 mm[Hg] Margarita Collins MD Work Phone: [facility] 12-08-2021 10:[id number] Body temperature 97.9 [degF] Xuan Lora PYTHON DEVELOPER.OIL PIPE INSPECTOR Work Phone: [facility] 12-08-2021 [id number] Body weight 102.74 kg Xuan Lora PYTHON DEVELOPER.OIL PIPE INSPECTOR Work Phone: [facility] 12-08-2021 10:26-0400 Diastolic blood pressure 88 mm[Hg] [place] Lora PYTHON DEVELOPER.OIL PIPE INSPECTOR Work Phone: [facility] 12-08-2021 10:26-0400 Heart rate 86 /min Xuan Lora PYTHON DEVELOPER.OIL PIPE INSPECTOR Work Phone: [facility] 12-08-2021 10:26-0400 SaO2% (BldA) [Mass fraction] 98 % [place] Lora PYTHON DEVELOPER.OIL PIPE INSPECTOR Work Phone: [facility] 12-08-2021 10:26-0400 Systolic blood pressure 135 mm[Hg] Xuan Lora PYTHON DEVELOPER.OIL PIPE INSPECTOR Work Phone: [facility] 11-20-2021 10:26-0400 Body temperature 97 [degF] Margarita Collins MD Work Phone: [facility] 11-20-2021 10:26-0400 Body weight 95.25 kg Margarita Collins MD Work Phone: [facility] 11-20-2021 10:26-0400 Diastolic blood pressure 75 mm[Hg] aMrgarita Collins MD Work Phone: [facility] 11-20-2021 10:26-0400 Heart rate 95 /min Margarita Collins MD Work Phone: [facility] 11-20-2021 10:26-0400 Respiratory rate 18 /min Margarita Collins MD Work Phone: [facility] 11-20-2021 10:26-0400 SaO2% (BldA) [Mass fraction] 95 % Margarita Collins MD Work Phone: [facility] 11-20-2021 10:26-0400 Systolic blood pressure 128 mm[Hg] Margarita Collins MD Work Phone: [facility] 11-15-2021 09:15-0400 Body temperature 98.2 [degF] Dave Parkeri DO Work Phone: [facility] 11-15-2021 09:15-0400 Body weight 96.39 kg Dave Elenai DO Work Phone: [facility] 11-15-2021 09:15-0400 Diastolic blood pressure 77 mm[Hg] Dave Elenai DO Work Phone: [facility] 11-15-2021 09:15-0400 Heart rate 88 /min Dave Elenai DO Work Phone: [facility] 11-15-2021 09:15-0400 SaO2% (BldA) [Mass fraction] 94 % Dave Noble DO Work Phone: [facility] 11-15-2021 09:15-0400 Systolic blood pressure 111 mm[Hg] Dave Noble DO Work Phone: [facility] 11-03-2021 09:53-0400 Body height 191.8 cm Pacc 1 Work Phone: [facility] 11-03-2021 09:53-0400 Body temperature 98.49 [degF] Pacc 1 Work Phone: [facility] 11-03-2021 09:53-0400 Body weight 97.98 kg Pacc 1 Work Phone: [facility] 11-03-2021 09:53-0400 Diastolic blood pressure 72 mm[Hg] Pacc 1 Work Phone: [facility] 11-03-2021 09:53-0400 Heart rate 104 /min Pacc 1 Work Phone: [facility] 11-03-2021 09:53-0400 Respiratory rate 18 /min Pacc 1 Work Phone: [facility] 11-03-2021 09:53-0400 SaO2% (BldA) [Mass fraction] 97 % Pacc 1 Work Phone: [facility] 11-03-2021 09:53-0400 Systolic blood pressure 102 mm[Hg] Pacc 1 Work Phone: [facility] 10-30-2021 15:28-0400 Body temperature 97.11 [degF] Treatment Wstr Work Phone: [facility] 10-30-2021 15:28-0400 Diastolic blood pressure 82 mm[Hg] Treatment Wstr Work Phone: [facility] 10-30-2021 15:28-0400 Heart rate 85 /min Treatment Wstr Work Phone: [facility] 10-30-2021 15:28-0400 Systolic blood pressure 128 mm[Hg] Treatment Wstr Work Phone: [facility] 10-27-2021 10:38-0400 Body temperature 97.5 [degF] Xuan Lora PYTHON DEVELOPER.OIL PIPE INSPECTOR Work Phone: [facility] 10-27-2021 10:38-0400 Body weight 97.3 kg [place] L[place] PYTHON DEVELOPER.OIL PIPE INSPECTOR Work Phone: [facility] 10-27-2021 10:38-0400 Diastolic blood pressure 66 mm[Hg] [place] Lora PYTHON DEVELOPER.OIL PIPE INSPECTOR Work Phone: [facility] 10-27-2021 10:38-0400 Heart rate 102 /min [place] PYTHON DEVELOPER.OIL PIPE INSPECTOR Work Phone: [facility] 10-27-2021 10:38-0400 SaO2% (BldA) [Mass fraction] 100 % Xuan Lora PYTHON DEVELOPER.OIL PIPE INSPECTOR Work Phone: [facility] 10-27-2021 10:38-0400 Systolic blood pressure 96 mm[Hg] Xuan Lora PYTHON DEVELOPER.OIL PIPE INSPECTOR Work Phone: [facility] 12-11-2016 09:00-0400 BMI (Body Mass Index) 28.2 kg/m2 [facility] Work Phone: 12-11-2016 09:00-0400 Body weight 104.42 kg Margarita Otto [facility] Work Phone: 12-11-2016 09:00-0400 Weight 104.42 kg Laurensimi Fuentesy [facility] Work Phone: 03-31-2015 09:36-0400 Heart rate 67 /min Lauren [facility] Work Phone: 03-31-2015 09:18-0400 BP Diastolic 60 mm[Hg] [facility] Work Phone: 03-31-2015 09:18-0400 BP Systolic 130 mm[Hg] [facility] Work Phone: 03-31-2015 09:18-0400 BSA (Body Surface Area) 2.32 m2 [facility] Work Phone: 03-31-2015 09:18-0400 Pulse (Heart Rate) 58 /min [facility] Work Phone: 03-31-2015 09:18-0400 Respiratory Rate 16 /min [facility] Work Phone: 11-10-2013 08:58-0400 Body Temperature 96.2 [degF] [facility] Work Phone: 11-10-2013 08:58-0400 Pulse Oximetry 98 % [facility] Work Phone: 10-13-2013 09:31-0400 Height 192.41 cm [facility] Work Phone: Encounters Encounter Date Encounter Type Care Provider Facility Start: 09-13-2023 Telephone encounter Dave wilkinson DO Work Phone: Hematology/Oncology Procedures Date Procedure Procedure Detail Performing Clinician Start: 06-03-[address] atten uation skull base mid-thigh Dave Noble DO Work Phone: Start: 02-19-2023 Ct abdomen & pelvis w/o contrast material Valentino Fagan MD Work Phone: Start: 02-19-2023 Ct thorax w/o contra st material Valentino Fagan MD Work Phone: Start: 11-27-2022 Ct thorax w/o contra st material Xuan Lora APRN.CNP Work Phone: Start: 08-09-2022 Ct thorax w/o contra st material Dave A Masci DO Work Phone: Start: 05-31-2022 Brncdilat rspse spmt ry pre&post-brncdilat admn Margarita Collins MD Work Phone: Start: 03-06-[address] atten uation skull base mid-thigh Dave A Masci DO Work Phone: Start: 02-12-2022 Ct thorax w/o contra st material Dave A Masci DO Work Phone: Start: 02-12-2022 Adult depression scr eening assessment Ct (I-[facility]) Work Phone: Start: 01-15-2022 Radiologic exam chest 2 views Xuan Lora PYTHON DEVELOPER.OIL PIPE INSPECTOR Work Phone: Start: 12-13-2021 Ct thorax w/o contra st material Margarita Collins MD Work Phone: Start: 11-12-2021 Adult depression scr eening assessment Dave Masci DO Work Phone: Start: 10-05-2021 Adult depression scr eening assessment Dave Masci DO Work Phone: Start: 01-15-2017 End: 01-15-2017 Dietary management education, guidance, and counseling Lauren Blanco Start: 12-11-2016 End: 12-11-2016 Alcoholism counseling Margarita Otto Start: 12-11-2016 End: 12-11-2016 Dietary management education, guidance, and counseling Lauren Blanco Start: 12-11-2016 End: 12-11-2016 Documentation of current medications Margarita Otto Start: 03-31-2015 End: 03-31-2015 SAUSAGE SMOKER Dawson Olvera MD Start: 03-31-2015 End: 04-01-2015 Documentation of current medications Dawson Olvera MD Start: 03-31-2015 End: 07-20-2015 Echocardiography Dawson Olvera MD Start: 03-31-2015 End: 03-31-2015 Electrocardiogram, complete Dawson Miles i, MD Start: 03-31-2015 End: 03-31-2015 Follow Up Appt 6 months Hoda Lovelace Start: 11-10-2013 End: 11-11-2013 Follow Up Appt Jose Umana MD Start: 10-13-2013 End: 10-13-2013 Follow Up Appt Jose Umana MD Plan of Treatment Date Care Activity Detail Author Start: 05-01-2026 Diabetes Screening Diabetes Screening [facility] Start: 04-22-2026 Diabetes Screening Diabetes Screening [facility] Start: 03-04-2026 DIABETES SCREEN DIABETES SCREEN [facility] Start: 02-04-2026 DIABETES SCREEN DIABETES SCREEN [facility] Start: 12-03-2025 DIABETES SCREEN DIABETES SCREEN [facility] Start: 11-20-2025 DIABETES SCREEN DIABETES SCREEN [facility] Start: 11-13-2025 DIABETES SCREEN DIABETES SCREEN [facility] Start: 11-05-2025 DIABETES SCREEN DIABETES SCREEN [facility] Start: 10-23-2025 DIABETES SCREEN DIABETES SCREEN [facility] Start: 10-08-2025 DIABETES SCREEN DIABETES SCREEN [facility] Start: 09-25-2025 DIABETES SCREEN DIABETES SCREEN [facility] Start: 09-10-2025 DIABETES SCREEN DIABETES SCREEN [facility] Start: 08-21-2025 DIABETES SCREEN DIABETES SCREEN [facility] Start: 08-13-2025 DIABETES SCREEN DIABETES SCREEN [facility] Start: 07-31-2025 DIABETES SCREEN DIABETES SCREEN [facility] Start: 07-24-2025 DIABETES SCREEN DIABETES SCREEN [facility] Start: 07-16-2025 DIABETES SCREEN DIABETES SCREEN [facility] Start: 07-03-2025 DIABETES SCREEN DIABETES SCREEN [facility] Start: 06-26-2025 DIABETES SCREEN DIABETES SCREEN [facility] Start: 06-19-2025 DIABETES SCREEN DIABETES SCREEN [facility] Start: 02-14-2025 DIABETES SCREEN DIABETES SCREEN [facility] Start: 01-23-2025 DIABETES SCREEN DIABETES SCREEN [facility] Start: 01-02-2025 DIABETES SCREEN DIABETES SCREEN [facility] Start: 12-08-2024 DIABETES SCREEN [facility]EN [place] [facility] Start: 11-15-2024 DIABETES SCREEN DIABETES SCREEN [facility] Start: 10-27-2024 DIABETES SCREEN DIABETES SCREEN [facility] Start: 10-06-2024 DIABETES SCREEN DIABETES SCREEN [facility] Start: 05-01-2024 Complete blood count Hemoglobin/Hematocrit [facility] Start: 05-01-2024 Creatinine measurement Serum Creatinine [facility] Start: 05-01-2024 Hemoglobin/Hematocrit Hemoglobin/Hematocrit [facility] Start: 05-01-2024 Serum Creatinine Serum Creatinine [facility] Start: 04-22-2024 Serum Creatinine Serum Creatinine [facility] Start: 03-04-2024 HEMOGLOBIN/HEMATOCRIT HEMOGLOBIN/HEMATOCRIT [facility] Start: 03-04-2024 SERUM CREATININE SERUM CREATININE [facility] Start: 02-05-2024 SERUM CREATININE SERUM CREATININE [facility] Start: 12-04-2023 HEMOGLOBIN/HEMATOCRIT HEMOGLOBIN/HEMATOCRIT [facility] Start: 12-04-2023 SERUM CREATININE SERUM CREATININE [facility] Start: 11-21-2023 HEMOGLOBIN/HEMATOCRIT HEMOGLOBIN/HEMATOCRIT [facility] Start: 11-21-2023 SERUM CREATININE SERUM CREATININE [facility] Start: 11-14-2023 HEMOGLOBIN/HEMATOCRIT HEMOGLOBIN/HEMATOCRIT [facility] Start: 11-14-2023 SERUM CREATININE SERUM CREATININE [facility] Start: 11-06-2023 HEMOGLOBIN/HEMATOCRIT HEMOGLOBIN/HEMATOCRIT [facility] Start: 11-06-2023 SERUM CREATININE SERUM CREATININE [facility] Start: 10-24-2023 HEMOGLOBIN/HEMATOCRIT HEMOGLOBIN/HEMATOCRIT [facility] Start: 10-24-2023 SERUM CREATININE SERUM CREATININE [facility] Start: 10-09-2023 HEMOGLOBIN/HEMATOCRIT HEMOGLOBIN/HEMATOCRIT [facility] Start: 10-09-2023 SERUM CREATININE SERUM CREATININE [facility] Start: 09-25-2023 HEMOGLOBIN/HEMATOCRIT HEMOGLOBIN/HEMATOCRIT [facility] Start: 09-25-2023 SERUM CREATININE SERUM CREATININE [facility] Start: 09-10-2023 HEMOGLOBIN/HEMATOCRIT HEMOGLOBIN/HEMATOCRIT [facility] Start: 09-10-2023 SERUM CREATININE SERUM CREATININE [facility] Start: 08-28-2023 HEMOGLOBIN/HEMATOCRIT HEMOGLOBIN/HEMATOCRIT [facility] Start: 08-21-2023 HEMOGLOBIN/HEMATOCRIT HEMOGLOBIN/HEMATOCRIT [facility] Start: 08-21-2023 SERUM CREATININE SERUM CREATININE [facility] Start: 08-13-2023 HEMOGLOBIN/HEMATOCRIT HEMOGLOBIN/HEMATOCRIT [facility] Start: 08-13-2023 SERUM CREATININE SERUM CREATININE [facility] Start: 08-05-2023 Advance Directive Discussion Advance Directive Discussion [facility] Start: 08-05-2023 Depression Assessment Depression Assessment [facility] Start: 07-31-2023 HEMOGLOBIN/HEMATOCRIT HEMOGLOBIN/HEMATOCRIT [facility] Start: 07-31-2023 SERUM CREATININE SERUM CREATININE [facility] Start: 07-24-2023 HEMOGLOBIN/HEMATOCRIT HEMOGLOBIN/HEMATOCRIT [facility] Start: 07-24-2023 SERUM CREATININE SERUM CREATININE [facility] Start: 07-16-2023 HEMOGLOBIN/HEMATOCRIT HEMOGLOBIN/HEMATOCRIT [facility] Start: 07-16-2023 SERUM CREATININE SERUM CREATININE [facility] Start: 07-07-2023 Covid-19 Vaccine () Covid-19 Vaccine () [facility] Start: 07-03-2023 HEMOGLOBIN/HEMATOCRIT HEMOGLOBIN/HEMATOCRIT [facility] Start: 07-03-2023 SERUM CREATININE SERUM CREATININE [facility] Start: 06-26-2023 HEMOGLOBIN/HEMATOCRIT HEMOGLOBIN/HEMATOCRIT [facility] Start: 06-26-2023 SERUM CREATININE SERUM CREATININE [facility] Start: 06-19-2023 HEMOGLOBIN/HEMATOCRIT HEMOGLOBIN/HEMATOCRIT [facility] Start: 06-19-2023 SERUM CREATININE SERUM CREATININE [facility] Start: 04-05-2023 Influenza vaccination [facility] Start: 02-14-2023 HEMOGLOBIN/HEMATOCRIT HEMOGLOBIN/HEMATOCRIT [facility] Start: 02-14-2023 SERUM CREATININE SERUM CREATININE [facility] Start: 02-12-2023 Adult depression screening assessment DEPRESSION SCREENING [facility] Start: 01-23-2023 HEMOGLOBIN/HEMATOCRIT HEMOGLOBIN/HEMATOCRIT [facility] Start: 01-23-2023 SERUM CREATININE SERUM CREATININE [facility] Start: 01-18-2023 Covid-19 Vaccine (6 - Moderna risk series) Covid-19 Vaccine (6 - Moderna risk series) [facility] Start: 01-02-2023 HEMOGLOBIN/HEMATOCRIT HEMOGLOBIN/HEMATOCRIT [facility] Start: 01-02-2023 SERUM CREATININE SERUM CREATININE [facility] Start: 12-08-2022 HEMOGLOBIN/HEMATOCRIT HEMOGLOBIN/HEMATOCRIT [facility] Start: 12-08-2022 SERUM CREATININE SERUM CREATININE [facility] Start: 11-15-2022 HEMOGLOBIN/HEMATOCRIT HEMOGLOBIN/HEMATOCRIT [facility] Start: 11-15-2022 SERUM CREATININE SERUM CREATININE [facility] Start: 11-12-2022 Adult depression screening assessment DEPRESSION SCREENING [facility] Start: 10-27-2022 HEMOGLOBIN/HEMATOCRIT HEMOGLOBIN/HEMATOCRIT [facility] Start: 10-27-2022 SERUM CREATININE SERUM CREATININE [facility] Start: 10-05-2022 Adult depression screening assessment DEPRESSION SCREENING [facility] Start: 08-05-2022 ADVANCE DIRECTIVE DISCUSSION ADVANCE DIRECTIVE DISCUSSION [facility] Start: 08-05-2022 DEPRESSION ASSESSMENT DEPRESSION ASSESSMENT [facility] Start: 04-05-2022 Influenza vaccination INFLUENZA (#1) [facility] Start: 03-18-2022 COVID-19 VACCINE (5 - Booster for Moderna series) COVID-19 VACCINE (5 - Booster for Moderna series) [facility] Start: 01-11-2022 COVID-19 VACCINE (5 - Booster for Moderna series) COVID-19 VACCINE (5 - Booster for Moderna series) [facility] Start: 01-01-2022 End: 12-20-2022 Ct thorax w/o contrast material CT CHEST WO IVCON Radiology Routine Chemotherapy induced pulmonary toxicity Expected: 01/01/2022, Expires: 12/20/2022 [facility] Work Phone: Immunizations Immunization Date Immunization Notes Care Provider Damian maravilla 05-05-2010 pneumococcal polysaccharide vaccine, 23 valent Ellie Sherman PA-C Work Phone: [facility] Work Phone: Payers Date Payer Category Payer Private Health Insurance [facility] CHOICE PLUS [id number] 2017-Present [phone] [address] [place] [id number] [facility] [id number] 2017 Private Health Insurance [facility] CHOICE PLUS [id number] 2017-Present [phone] [address] [place] [address] O [id number] 2017 Unknown [id number] 2010 Medicare MEDICARE MEDICAR E A AND B [id number] 2010-Present [phone] [place] [address] Medicare [id number] 2010 Medicare MEDICARE MEDICAR E A AND B [id number] 2010-Present [phone] [place] [address] Medicare [id number] 2010 Medicare [id number] Social History Date Type Detail Facility Start: 09-24-2016 End: 04-10-2022 Tobacco smoking status NHIS Ex-smoker [facility] End: 09-24-1996 History of tobacco use Current smoker [facility] End: 09-24-1996 History of tobacco use Cigarette Smoker [facility] Start: 09-24-2016 End: 01-04-2023 Cigarettes smoked current (pack per day) - Reported 1 [facility] Start: 09-24-2016 End: 04-10-2022 Tobacco use and exposure Smokeless tobacco non-user [facility] Start: 10-06-2021 End: 09-10-2023 Alcohol intake Current drinker of alcohol (finding) [facility] Start: 10-22-2019 History SDOH Alcohol Comment occassionally/ social [facility] Start: 1945 Sex Assigned At Male [facility] Start: 10-13-2021 End: 07-03-2022 Exposure to SARS-CoV-2 (event) Not sure [facility] Start: 05-20-2022 End: 05-30-2022 Exposure to SARS-CoV-2 (event) Unable to assess [facility] Start: 01-04-2023 End: 03-04-2023 Tobacco use panel [facility] Adult Depression Screening Assessment 2 [facility] Start: 06-30-2019 Gender identity Identifies as male gender (finding) [facility] Start: 06-30-2019 Sexual orientation Heterosexual (judith quezada) [facility] Clinical Notes 06-01-2021 to 09-17-2023 Telephone Encounter - Sugg, Katherine - 09/17/2023 8:54 AM ESTTelephone Encounter - Charmaine Munguia LPN - 09/16/2023 3:18 PM ESTTelephone Encounter - Angie Brito - 09/13/2023 4:20 PM EST Note Date & Type Note Facility 09-17-2023 Miscellaneous Notes Echo is zamzam 09/26/23 at 7 AM At [facility] Echo still needs scheduled at [facility]? Charmaine Munguia LPN Spoke with Onelia from Cardiology at [facility] and connected with the patient. Patient is scheduled for 09/26/23 at 7AM. Pt. Notified rx sent to [facility] . Informed our PSS will reach out to him to schedule him for echocardiogram at [facility] as soon as able. Pt. Voiced understanding. Betty Palmer LPN I sent prescription to [facility]. In the meantime please schedule him for echocardiogram at [facility] as soon as able. I checked and his most recent echocardiogram was in 2014. Dave Noble DO Patient states water pills were to be sent to [facility] in [place] per Dr. Noble. Please advise. documented in this encounter [facility] 09-10-2023 Note [facility] 09-10-2023 History of Present illness Narrative Diagnosis: 1) NSCLC. HPI: The patient is a 77 yo male with PMH significant for RCC (right nephrectomy at [facility] 2004; followed up with Dr. Hernandez), superficial bladder cancer, LUIS CARLOS (underwent uvulopalatopharyngoplasty by Dr. Aguilera), COPD and gout. He had been under the care of [...] an SUV of 2 for that lesion. Patient underwent a CT chest on 05/07/2016. The inhomogeneous soft tissue density in the posterior medial segment of the right upper lobe was not noted to change in size and measured 3.6 x 3.8 x 4.8 cm. Patient was referred to a thoracic surgeon at [facility]. He ultimately underwent a right thoracotomy with right upper lobe wedge resection and immediate right upper lobectomy along with mediastinal lymphadenectomy on 08/14/2016. The final pathology demonstrated within the wedge [...] sections. Final pathologic staging was pT3 N0. Previous therapy: 1) Adjuvant carbo/paclitaxel completed 01/2017. He had a surveillance CT of the chest in June 2018 which showed stable 4 mm nodules in the right lung. A subsequent surveillance CT chest December 2018 revealed stable findings. However in June 2019 CT scan showed mild enlargement of soft tissue density in the right hilum/suprahilar region. This was thought to potentially represent recurrent disease. It measured 2.4 x 1.3 cm versus 1.4 x 1.[address] was obtained on 07/07/2019 and it demonstrated only slight FDG avidity corresponding to the right hilar/suprahilar enlarging soft tissue density with a max SUV of 3.0. A follow-up CT chest in October 2019 revealed interval increase in size of the soft tissue mass/density posterior to the right mainstem bronchus measuring 2.3 x 1.7 cm. Previously it was noted to be 2.1 x 1.2 cm. There was no CT evidence of progressive adenopathy. Patient underwent a bronchoscopy in October 2019. He was noted to have slight inward bulging of the posterior wall of the right middle lobe bronchus and bronchus intermedius without any compromise to luminal patency. This corresponded to the site of the right lower lobe lesion on imaging. Bronchial mucosa and anatomy were otherwise normal. There were no endobronchial lesions and no secretions. He underwent EBUS and TB NA of the right lower lobe lung nodule and cytology was positive for malignant cells. Pathology demonstrated non-small cell carcinoma favoring adenocarcinoma. Molecular telephone directory distributor driver mutations were all negative. Repeat PET/CT 11/17/2019 revealed mild uptake in the right lung nodule with a max SUV of 2.5. There was no other suspicious uptake. Brain MRI 11/04/2019 revealed no brain metastases. Patient underwent SBRT for local hilar recurrence versus new primary right lower lobe lung cancer. Was completed 2019. Patient had a surveillance CT of the chest on 01/06/2021. That study showed extensive postsurgical change and scarring from right upper lobectomy. There was paramedian fibrosis and bronchiectasis on the right which was noted previously. There was a right subcentimeter mid lung field nodule which was unchanged. No new nodules were observed. No enlarged lymph nodes were observed. There was marked deformity of the right mainstem bronchus. Underwent bronchoscopy 05/18/2021. Airway examination of the left lung was normal. There was extrinsic compression observed in the bronchus intermedius. Lymph node sizing and sampling was performed. EBUS TB NA was performed at lymph node station 7. Rapid onsite evaluation preliminary cytology suggested malignancy and level 7 lymph node. Pathology: FINAL DIAGNOSIS A. BRONCHIAL, #22 EBUS TBNA STATION 7, FINE NEEDLE ASPIRATE (THINPREP, SMEARS AND CELL BLOCK) Positive for malignant cells. Adenocarcinoma. Previous therapy: 1) Abraxane, carboplatin and Keytruda. 2) Pembrolizumab. 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 3) Taxotere. 5) Radiation to ALIREZA tumor completed 06/2023. Had LUMBAR LAMINECTOMY DISCECTOMY L2-3 01/28. Better strength in right thigh flexor. Getting electrical stimulation to help recovery. Presents for ongoing oncologic management. Interim history: Cough has gotten a little worse following radiation. Gets long paroxysms of cough. Recently in ED. Has been trying codeine cough syrup. Nor sure it's helping. Was put on prednisone taper last week. Down to 7.5 mg daily. Continues PPI. Has HOB up 4 inches. Snores a lot. Has gained weight. Increase swelling in legs. He recalls getting a one-time dose of Lasix at his PCPs office. Had about a 10 pound weight loss following that. PMH, medications and allergies as below personally reviewed by me today. Any changes documented in appropriate section. PHYSICAL EXAM: Vitals: Blood pressure 110/77, pulse 96, resp. rate 17, weight 113.2 kg (249 lb 8 oz), SpO2 96%. Well-appearing and in no acute distress. EYES: Sclerae are anicteric bilaterally. LYMPHATIC: There is no palpable cervical or supraclavicular adenopathy. RESPIRATORY: Coarse sounds right upper lung. CARDIOVASCULAR: Rhythm is regular. ABDOMEN: The abdomen is nondistended. Extremities: Bilateral swelling lower extremities. LABORATORY DATA: Component Latest Ref Rng & Units 03/04/2023 WBC 3.70 - 11.00 k/uL 6.11 RBC 4.20 - 6.00 m/uL 4.73 Hemoglobin 13.0 - 17.0 g/dL 13.9 Hematocrit 39.0 - 51.0 % 42.4 MCV 80.0 - 100.0 fL 89.6 MCH 26.0 - 34.0 pg 29.4 MCHC 30.5 - 36.0 g/dL 32.8 RDW-CV 11.5 - 15.0 % 13.9 Platelet Count 150 - 400 k/uL 170 MPV 9.0 - 12.7 fL 10.2 Neut% % 67.7 Abs Neut (ANC) 1.45 - 7.50 k/uL 4.14 Lymph% % 18.7 Abs Lymph 1.00 - 4.00 k/uL 1.14 [place]% % 7.5 Abs [place] <0.87 k/uL 0.46 Eosin% % 4.3 Abs Eosin <0.46 k/uL 0.26 Baso% % 1.0 Abs Baso <0.11 k/uL 0.06 Immature Gran % % 0.8 IMMATURE GRANS (ABS) <0.10 k/uL 0.05 NRBC /100 WBC 0.0 Absolute nRBC <0.01 k/uL <0.01 DTYPE Auto Protein, Total 6.3 - 8.0 g/dL 7.0 Albumin 3.9 - 4.9 g/dL 4.2 Calcium 8.5 - 10.2 mg/dL 9.6 Bilirubin, Total 0.2 - 1.3 mg/dL 0.5 Alkaline Phosphatase 38 - 113 U/L 143 (H) AST 14 - 40 U/L 24 ALT 10 - 54 U/L 27 Glucose 74 - 99 mg/dL 107 (H) BUN 9 - 24 mg/dL 35 (H) Creatinine 0.73 - 1.22 mg/dL 1.76 (H) Sodium 136 - 144 mmol/L 139 Potassium 3.7 - 5.1 mmol/L 4.4 Chloride 97 - 105 mmol/L 103 CO2 22 - 30 mmol/L 24 Anion Gap 9 - 18 mmol/L 12 eGFR >=60 mL/min/1.73m 39 (L) ASSESSMENT/PLAN: (C34.11) 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) (primary encounter diagnosis) Assessment: -pT3 N0 MX (greater than 7 cm adenocarcinoma) stage 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 -Patient received SBRT for local recurrence of disease. -Recent PET scan in conjunction with biopsy of subcarinal lymph node demonstrate recurrent disease. -PDL-1 1%. -ALK rearrangement not detected. -BRAF - A sequence change: [id number] [p.[id number] (p.[id number])]. Not V600E mutation. -EGFR -No variant detected. -HER2 (ERBB2) - No variant detected. -KRAS - No variant detected. -MET - No variant detected. -Reviewed his most current CT chest. Objective response to recent radiation last fall. No new areas of disease. -Chronic cough. -Volume overload. Plan: -Continue sleeping with head of bed upright. -Continue PPI. -Obtain echocardiogram report from [facility]. -Potential diuresis following review of that. -Continue codeine-based cough syrup. -Could consider higher dose, codeine tablets. -Otherwise CT chest followed by office visit in 3 months. Portions of this documentation were copied and pasted from previous office visit notes in order to provide a cohesive continuity of the history. The note has been reviewed and edited and updated as necessary. I spent a total of 20 minutes on the date of the service which included preparing to see the patient, [id number] patient care, completing clinical documentation, obtaining and/or reviewing separately obtained history, performing a medically appropriate examination, counseling and educating the patient/family/caregiver, ordering medications, tests, or procedures, communicating with other HCPs (not separately reported), and communicating results to the patient/family/caregiver. Dave Noble DO documented in this encounter [facility] 08-26-2023 Note [facility] 08-13-2023 Note [facility] 08-09-2023 Note [facility] 07-31-2023 Note [facility] 06-26-2023 Note [facility] 06-26-2023 Nurse Note AMBULATORY PATIENT EDUCATION NOTE TOPIC: SURVIVAL SKILLS: Symptom Management READINESS TO LEARN COGNITIVE ABILITY: Alert and oriented MOTIVATION TO LEARN: Eager Interested FAMILY SUPPORT: Unable to assess - Family not present INSTRUCTION PROVIDED TO: Patient PATIENT LEARNS BEST BY: Multiple Methods FACTORS AFFECTING LEARNING: None PHYSICAL LIMITATIONS AFFECTING LEARNING: None LEARNING RESPONSE DIAGNOSIS: C34.31 METHOD OF INSTRUCTION: Teach Back skin care Individual instruction Written instruction - handouts Verbal instruction PATIENT / FAMILY RESPONSE: Verbalizes understanding of: SYMPTOM MANAGEMENT-Correct actions to take to manage symptoms associated with his/her disease/illness FOLLOW-UP PLAN: Patient instructed to call with any further issues Reinforce - Repeat previous content Contact information given. SUPPLEMENTAL MATERIAL: D/C sheet REFERRAL (RECOMMENDATION): None Written discharge instructions given and reviewed with patient. Patient verbalizes understanding. Encouraged to call with any questions or concerns. Instruction for 4 week phonefollow up appointment given by Dr. Briggs. Electronically Signed By: Vanessa Van, RN In Department: RADIATION ONCOLOGY Time spent on patient education: 05 minutes. documented in this encounter [facility] 06-19-2023 Note [facility] 06-19-2023 History of Present illness Narrative Radiation Oncology - On Treatment Review (OTR) Note PATIENT NAME: Checo Johnson PATIENT DIAGNOSIS: Adenocarcinoma of the left upper lung, stage I new primary vs. metastatic recurrence of previous right lower lobe lung cancer with h/o local recurrence treated with definitive radiation treatment finished on 12/31/19. He has h/o stage IIB, T3N0, non-small cell lung cancer (adenocarcinoma) in 2017 treated with right upper lobectomy and adjuvant chemotherapy, s/p Abraxane, carboplatin and Keytruda in 2017. COURSE: SBRT (stereotactic body radiotherapy) AREA TREATED: Left upper lung CURRENT DOSE: 2000 cGy in 2 fx PLANNED DOSE: 5000 cGy in 5 fx SUBJECTIVE: He is doing well without any specific new complaints. EXAM: KPS: 90 General Appearance: Alert and oriented. No acute distress. IMAGING/LAB RESULTS: None Treatment chart checked: Yes Patient treatment site reviewed and verified:Yes CBCTs reviewed and current:Yes Medications started: None ASSESSMENT/PLAN: Clinically stable. No signs of toxicity. Continue radiation treatment as planned. Renny Briggs MD documented in this encounter [facility] 06-19-2023 Nurse Note Radiation Therapy - Nursing Note (OTV) PATIENT NAME: Checo Johnson PATIENT June 19, 2023 [facility] FACILITY/LOCATION: [place] NURSING NOTE TYPE: CHEST Subjective Data no c/o has cough and shortness of breath that are not new or worse Additional Data Do you want to see a Church Worker? No Status: Patient is male Stress Scale: On a scale of 0 to 10, what number best describes how much distress you have experienced in the past week?(0 being no distress and 10 being extreme distress) 1 Social work notified: Pt denied need to see sexual assault social worker at this time. Nursing Assessment Fatigue: none Appetite: good Nutritional Intake: Regular oral intake. Weight Gain/Loss: No Ambulatory weight history: Last 6 Encounter Wt Readings: Date: Wt: 06/05/2023 99.8 kg (220 lb) 05/10/2023 103 kg (227 lb) 05/01/2023 103.2 kg (227 lb 8 oz) 04/24/2023 100.7 kg (222 lb) 03/04/2023 98.9 kg (218 lb) 02/04/2023 100.5 kg (221 lb 8 oz) Nausea:None Vomiting: None Bowel Function: normal bowel movements Erythema/Hyperpigmentation:none Desquamation:none Rash:none Skin Care: Aquaphor Skin Sensation: Within Normal Limits Focused Assessment CHEST: Dysphagia: No. Pain with swallowing: No. Shortness of breath: Minimal. Cough: Moderate. SIGNED by: Miryam Soliman RN documented in this encounter [facility] 06-06-2023 Note [facility] 06-06-2023 Note [facility] 06-06-2023 History of Present illness Narrative CHECO JOHNSON [id number] 06/06/2023 [facility] Department of Radiation Oncology [facility] RADIATION ONCOLOGY SIMULATION NOTE DATE OF SIMULATION: 06/06/2023 MACHINE: Siemens Definition CT Simulator Diagnosis: Adenocarcinoma of the left upper lung, stage I new primary vs. metastatic recurrence of previous right lower lobe lung cancer with h/o local recurrence treated with definitive radiation treatment finished on 12/31/19. He has h/o stage IIB, T3N0, non-small cell lung cancer (adenocarcinoma) in 2017 treated with right upper lobectomy and adjuvant chemotherapy, s/p Abraxane, carboplatin and Keytruda in 2017. AREA:Left Upper Lung PATIENT POSITION: Supine. CONTRAST: None PROTOCOL: None BLOCKING: Custom blocking to be determined at treatment planning. FIXATION DEVICE: In order to achieve accurate and reproducible treatments, the patient is to be immobilized with a custom vacbag, civco sbrt, and compression belt. PROCEDURE: A time-out was conducted and recorded by the therapist. Patient was simulated on the CT scanner for external beam radiation therapy. Treatment site was marked by the simulation therapist. ASSESSMENT/PLAN: Patient tolerated simulation procedure well. Treatments will be initiated after treatment planning. The patient is scheduled for a verification simulation on the treatment machine to ensure proper set-up and field arrangement is correct prior to the first treatment of primary and boost allison if applicable. Electronically Signed Renny Briggs M.D./sharon 0:21 AM documented in this encounter [facility] 06-06-2023 History of Present illness Narrative CHECO JOHNSON N [id number] 06/06/2023 [facility] Department of Radiation Oncology Treatment Planning Note For reasons stated in the consult note, Checo Johnson is a candidate for radiation therapy. Based on review and interpretation of the relevant diagnostic studies together with the exam findings, Checo Johnson was simulated on 06/06/2023 at which time the target volume and/or requisite allison were delineated, as indicated in the simulation note, to be treated according to the prescription. An ITV was created from all the phases of respiratory motion captured by the 4DCT image sets. Motion management allowed for design of patient specific planning target volume and reduced the radiation exposure to normal tissues. The treatment target and organs at risk were contoured on the simulation scan using the fused PET. Special consideration to these and other structures was given in light of the potential for increased toxicities of stereotactic body radiation therapy (SBRT). After reviewing multiple treatment plans with dosimetry, the best plan was approved to deliver the prescribed course of radiation to the target area using inverse planning to allow for the best isodose distribution, treating to the 70.3% isodose line with 6MV FFF and 2 allison. Custom MLC and asym jaws for IMRT were the treatment devices used to shape/modify the beams. Limiting dose to normal tissue was confirmed upon review of the calculated dose volume histogram. IMRT planning was used because it best met the dose/volume constraints for the organs at risk for this patient, better than what could be achieved using conventional or 3D planning. The specific dose requirements for the PTV, organs at risk and dose-volume histograms are contained in this treatment plan and/or elsewhere in the medical record. A completed summary of this plan dated 06/13/2023 incorporated herein by reference includes dose, beam arrangements, energy, blocking, isodose distribution, and/or ports and DVH. Electronically Signed Renny Briggs M.D. 0:20 AM documented in this encounter [facility] 06-05-2023 Note [facility] 06-03-2023 Miscellaneous Notes Spoke with patient and scheduled. Angie Brito Thank you. Filed. Dave Noble DO Left message for patient to contact this nurse regarding upcoming needed appointments. CT chest WO then OV with Dr. Noble in 3 months. Patient will also be seeing Dr. Briggs for a consult on SBRT. Dr. Noble- please file order. Charmaine Munguia LPN documented in this encounter [facility] 06-03-2023 Miscellaneous Notes Please see other phone encounter for today under Dr. Noble. Angie Brito documented in this encounter [facility] 06-03-2023 Note HNO ID: [id number] Author: Ayaan Jiang RT(R) Service: Nuclear Medicine Author Type: Technologist Type: Progress Notes Filed: 06/03/2023 9:25 AM Note Text: RADIOLOGY SERVICE PROGRESS NOTE SERVICE DATE: 06/03/2023 SERVICE TIME: 9:24 AM PATIENT IDENTITY VERIFICATION COMPLETED USING TWO (2) STANDARD IDENTIFIERS: Name and Date of confirmed by patient verbally FALL SCREENING: Has the patient had 2 falls in the last year or 1 fall with injury or currently using an Ambulatory Assistive Device (Walker, Cane, Wheelchair, Crutches, etc.)? No PATIENT GENDER DATA: .male ALLERGIES: NA MEDICATIONS REVIEWED: Not applicable PATIENT RELEVANT IMPLANT DATA REVIEWED: Not Applicable CREATININE: Creatinine Date Value Ref Range Status 05/01/2023 1.55 (H) 0.73 - 1.22 mg/dL Final 04/22/2023 1.65 (H) 0.73 - 1.22 mg/dL Final 03/04/2023 1.76 (H) 0.73 - 1.22 mg/dL Final Estimated Glomerular Filtration Rate Date Value Ref Range Status 05/01/2023 46 (L) >=60 mL/min/1.73m? Final Comment: Estimated Glomerular Filtration Rate (eGFR) is calculated using the 2020 CKD-EPI creatinine equation. This equation utilizes serum creatinine, sex, and age as parameters. The creatinine assay has traceable calibration to isotope dilution-mass spectrometry. Refer to KDIGO guidelines for clinical interpretation. In patients with unstable renal function, e.g. those with acute kidney injury, the eGFR may not accurately reflect actual GFR. eGFR- Date Value Ref Range Status 09/15/2021 47 Final P.O.C.T. RESULTS: N/A June 03, [address] PERFORMED: No IV SITE: Ambulatory: [place] only - direct IV injection in the Right antecubital site POST EXAM PIV STATUS: Discontinued PROCEDURE TYPE: NM INJECT: PET/CT BODY SCAN. 12.6 mCi F18 FDG. No other medications given.. ADMINISTRATION TIME: 0920 PATIENT DISCHARGED TO: Ambulatory patient, left [place] department area. A Diagnostic radioactive procedure has taken place, with no further precautions necessary other than routine body substance precautions. More information regarding radiation safety can be found using this link: [email or web address]%20Nuclear%20Medicine %[email or web address] SIGNATURE: RT Rajani(R) PATIENT NAME: Checo Johnson DATE: June 03, 2023 TIME: 9:24 AM PAGER/CONTACT #: [facility] 06-03-2023 History of Present illness Narrative RADIOLOGY SERVICE PROGRESS NOTE SERVICE DATE: 06/03/2023 SERVICE TIME: 9:24 AM PATIENT IDENTITY VERIFICATION COMPLETED USING TWO (2) STANDARD IDENTIFIERS: Name and Date of confirmed by patient verbally FALL SCREENING: Has the patient had 2 falls in the last year or 1 fall with injury or currently using an Ambulatory Assistive Device (Walker, Cane, Wheelchair, Crutches, etc.)? No PATIENT GENDER DATA: .male ALLERGIES: NA MEDICATIONS REVIEWED: Not applicable PATIENT RELEVANT IMPLANT DATA REVIEWED: Not Applicable CREATININE: Creatinine Date Value Ref Range Status 05/01/2023 1.55 (H) 0.73 - 1.22 mg/dL Final 04/22/2023 1.65 (H) 0.73 - 1.22 mg/dL Final 03/04/2023 1.76 (H) 0.73 - 1.22 mg/dL Final Estimated Glomerular Filtration Rate Date Value Ref Range Status 05/01/2023 46 (L) >=60 mL/min/1.73m Final Comment: Estimated Glomerular Filtration Rate (eGFR) is calculated using the 2020 CKD-EPI creatinine equation. This equation utilizes serum creatinine, sex, and age as parameters. The creatinine assay has traceable calibration to isotope dilution-mass spectrometry. Refer to KDIGO guidelines for clinical interpretation. In patients with unstable renal function, e.g. those with acute kidney injury, the eGFR may not accurately reflect actual GFR. eGFR- Date Value Ref Range Status 09/15/2021 47 Final P.O.C.T. RESULTS: N/A June 03, [address] PERFORMED: No IV SITE: Ambulatory: [place] only - direct IV injection in the Right antecubital site POST EXAM PIV STATUS: Discontinued PROCEDURE TYPE: [place] INJECT: PET/CT BODY SCAN. 12.6 mCi F18 FDG. No other medications given.. ADMINISTRATION TIME: 919 PATIENT DISCHARGED TO: Ambulatory patient, left [place] department area. A Diagnostic radioactive procedure has taken place, with no further precautions necessary other than routine body substance precautions. More information regarding radiation safety can be found using this link: [email or web address]% 20-%20Diagnostic%20Nuclear%20Medicine% 20Procedures.pdf SIGNATURE: RT Rajani(R) PATIENT NAME: Checo Johnson DATE: June 03, 2023 TIME: 9:24 AM PAGER/CONTACT #: documented in this encounter [facility] 05-27-2023 Miscellaneous Notes Spoke with patient and scheduled. Angie Brito PSS- please contact patient to schedule PET scan. Patient informed of need for PET scan and plan going forward based on results. Charmaine Munguia LPN Filed. Dave Noble DO Please file order for scheduling. Charmaine Munguia LPN documented in this encounter [facility] 05-09-2023 Miscellaneous Notes See 05/02/23 TE. Angie Brito Biopsy has been approved at [place]. Left for pt to schedule. Please have pt call [phone]. Summary: Lung Bx Request received for lung biopsy. Sending to radiologist for approval. documented in this encounter [facility] 05-09-2023 Miscellaneous Notes Patient requesting medication pended to encounter. Patient would like medications sent to [facility] pharmacy. Please review and advise patient. Patient also was concerned due to not hearing from [employer] about scheduling procedure. Patient stated it has been a week. Julita Collins LPN documented in this encounter [facility] 05-01-2023 Note [facility] 04-24-2023 Note [facility] 04-24-2023 History of Present illness Narrative Images from the original note were not included. Patient: Checo Johnson PCP: David Chandler MD CC: follow up/review imaging HPI: Checo Johnson 77 year old male former smoker with PMH significant for multiple cancers including renal cell carcinoma, bladder and lung cancer. Lung cancer history dates back to 2017 with RUL adenocarcinoma s/p lobectomy. He had recurrence in right hilum in 2019 s/p SBRT, abraxane/carboplatin/Keytruda. He has had chronic groundglass opacities in his right upper lobe status post bronchoscopy with transbronchial biopsy only pertinent for inflammation. Treated for possible checkpoint inhibitor toxicity with steroids. CT chest today from my review demonstrates stability in right lung, however, left upper lobe nodule appears more dense/solid and increased. Pending radiology read. Today, patient states increased cough productive of greenish/brown sputum. For the past 2-3 weeks has noticed blood streaks throughout sputum. Cough worse at night/laying down. Currently on 7.5 mg Prednisone daily. Occasional wheezing, especially with laying down at night. No significant SOB, chest pain or palpitations. No fevers, chills or night sweats. No unintended weight loss. PAST MEDICAL HISTORY Diagnosis Date Bladder cancer (HCC) Chronic kidney disease COPD (chronic obstructive pulmonary disease) (HCC) Gout Hypercholesterolemia Hypogonadism in male Lung cancer (HCC) Radiation pneumonitis (HCC) Renal cancer (HCC) Shingles 2021 Skin cancer Sleep apnea Allergies: No Known Allergies predniSONE (DELTASONE) 5 mg tablet Take 1.5 tablets by mouth once daily. fluconazole (DIFLUCAN) 100 mg tablet Take one daily for 7 days. Do not take Azithromycin while on fluconazole erythromycin (ROMYCIN) 5 mg/gram (0.5 %) ophthalmic ointment Use 1 application in both eyes twice daily. lifitegrast (XIIDRA) 5 % ophthalmic drops Use 1 Drop in eyes twice daily. (Patient not taking: Reported on 02/04/2023) ijkpuflekc-wuyqvbpo-dirrhwwibz (BREZTRI AEROSPHERE) 160-9-4.8 mcg/actuation HFA aerosol inhaler Inhale 2 Puffs as instructed twice daily. cyanocobalamin, vitamin B-12, (VITAMIN B-12 INJECTION) One injection twice monthly. albuterol HFA (PROVENTIL HFA, VENTOLIN HFA) 90 mcg/actuation inhaler Inhale 2 Puffs as instructed every 4 hours as needed. pantoprazole DR (PROTONIX) 40 mg tablet Take 40 mg by mouth once daily. ondansetron (ZOFRAN) 8 mg tablet Take 1 tablet by mouth every 8 hours as needed for nausea/vomiting. doxepin capsule 25 mg Take 25 mg by mouth daily at bedtime. acetaminophen (TYLENOL EXTRA STRENGTH) 500 mg tablet Take 500 mg by mouth as needed. febuxostat (ULORIC) 40 mg tab Take 40 mg by mouth once daily. testosterone cypionate (DEPO-TESTOSTERONE) 100 mg/mL injection One IM injection twice monthly. pramipexole (MIRAPEX) 0.5 mg tablet Take two tablets by mouth twice daily. Social History Tobacco Use Smoking status: Former Packs/day: 1.00 Years: 30.00 Additional pack years: 0.00 Total pack years: 30.00 Types: Cigarettes Quit date: 09/24/1996 Years since quittin.5 Smokeless tobacco: Never Vaping Use Vaping Use: Never used Substance Use Topics Alcohol use: Yes Alcohol/week: 4.0 standard drinks of alcohol Types: 4 Glasses of Wine (5oz) per week Comment: occassionally/ social Drug use: No Family History Problem Relation Age of Onset Hypertension Mother other (Lung Cancer) Father other (Parkinson's Disease) Sister other (Bone Cancer) Brother other (Lung Cancer) Brother Diabetes Brother other (Melanoma) Brother other (Hepatitis C) Brother Breast Cancer Sister other (Lung Cancer) Sister other (Parkinson's Disease) Sister Cancer Sister Brain Cancer, lung cancer PAST SURGICAL HISTORY Procedure Laterality Date APPENDECTOMY PAST SURGICAL HISTORY OF 2018 Back surgery PAST SURGICAL HISTORY OF 2010 Bladder surgery PAST SURGICAL HISTORY OF 2015 Skin cancer removed from head PAST SURGICAL HISTORY OF Right 2017 Right upper lobectomy PAST SURGICAL HISTORY OF Right 07/2019 Cataract surgery PAST SURGICAL HISTORY OF Left 08/2019 Cataract Surgery PAST SURGICAL HISTORY OF 08/2019 nasal surgery REMOVAL OF KIDNEY Right 2003 TONSILLECTOMY HX 1997 I reviewed the past medical history, family history, social history and surgical history with changes noted above and updated in EMR. IMMUNIZATIONS Prevnar - xx Pneumovax 23 - 05/05/2010 Influenza - xx COVID-19 - most recent 11/23/2022 ROS: CONSTITUTIONAL: No fevers, chills, nightsweats, unintended weight loss. HEENT: Denies nasal congestion/sinus symptoms, allergy problems. EYES: No diplopia or blurry vision. Lid droop CARDIOVASCULAR: No chest pain, dyspnea, palpitations, orthopnea, edema PULM: See HPI GI: No dysphagia/odynophagia, problematic reflux NEURO: No new balance problems, peripheral weakness/paresthesias or numbness of concern. MUSC-SKEL: No joint pain, swelling, or erythema. INTEGUMENTARY: No new skin changes or rashes PHYSICAL EXAMINATION: BP 124/62 Pulse 96 Resp 17 Wt 100.7 kg (222 lb) SpO2 96% BMI 29.11 kg/m Gen: No acute distress. Cooperative with examination. HEENT: Normocephalic. Sclera, conjunctiva clear. Oral hygeine and dentition good. No thrush. Left lid droop Resp: No stridor, accessory respiratory muscle use, supra-sternal or intercostal retractions. No wheezes, crackles. CV: Regular rythm. Heart tones normal. Radial pulses normal. Abd: Non distended. MSK: No kyphoscoliosis. Ext: Warm and well perfused. No clubbing, cyanosis, edema. Skin: No rash, ecchymoses. Neuro: Mental status normal. Affect normal. No tremor. DATA: PFT, 2021 IMPRESSION: Spirometry shows a reduced FEV1/FVC ratio; but individually normal FVC and FEV1 predicted values.This pattern indicates mild obstruction or a normal variant. There was not a significant bronchodilator response. The TLC, RV and RV/TLC are normal. Electronically Signed On 05-31-2022 14:15:41 EDT by Margarita Collins M.D. CT chest, 04/24/2023 Pending radiology read ASSESSMENT/PLAN: 1. Acute bronchitis, unspecified organism - ICD9: 466.0, ICD10: J20.9 (primary diagnosis) Patient with increased cough which may be related to decreasing prednisone. However, with worsening ground glass opacity in ALIREZA and hemoptysis will treat with antibiotics. Treat with Levaquin 500 mg for 7 days. Instructed patient to hold Diflucan and Zofran while on antibiotics. - LEVOFLOXACIN 500 MG TABLET 2. Chronic cough - ICD9: 786.2, ICD10: R05.3 Chronic cough due to combination of distortion of his airways, airways inflammation and radiation fibrosis Worsening as tapering off of prednisone. Continue Breztri 3. Radiation fibrosis of lung (HCC) - ICD9: 508.1, E926.9, ICD10: J70.1 No specific intervention 4. 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) - ICD9: 162.3, ICD10: C34.11 Treatment per oncology 5. Ground glass opacity present on imaging of lung - ICD9: 793.19, ICD10: R91.8 ALIREZA nodule appears more solid to me on CT chest today. Pending radiology read. Will treat with antibiotics. Patient will most likely need PET and/or biopsy. Further recommendations to follow final read. 6. 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) - ICD9: 496, ICD10: J44.9 Continue Breztri with as needed Albuterol Portions of this documentation were copied and pasted from previous office visit notes in order to provide a cohesive continuity of the history. The note has been reviewed and edited and updated as necessary. Ellie Sherman PA-C documented in this encounter [facility] 04-24-2023 Note [facility] 03-04-2023 Note [facility] 03-04-2023 History of Present illness Narrative Diagnosis: 1) NSCLC. HPI: The patient is a 77 yo male with PMH significant for RCC (right nephrectomy at [facility] 2003; followed up with Dr. Hernandez), superficial bladder cancer, LUIS CARLOS (underwent uvulopalatopharyngoplasty by Dr. Aguilera), COPD and gout. He had been under the care of [...] an SUV of 2 for that lesion. Patient underwent a CT chest on 05/07/2016. The inhomogeneous soft tissue density in the posterior medial segment of the right upper lobe was not noted to change in size and measured 3.6 x 3.8 x 4.8 cm. Patient was referred to a thoracic surgeon at [facility]. He ultimately underwent a right thoracotomy with right upper lobe wedge resection and immediate right upper lobectomy along with mediastinal lymphadenectomy on 08/14/2016. The final pathology demonstrated within the wedge [...] sections. Final pathologic staging was pT3 N0. Previous therapy: 1) Adjuvant carbo/paclitaxel completed 01/2017. He had a surveillance CT of the chest in June 2018 which showed stable 4 mm nodules in the right lung. A subsequent surveillance CT chest December 2018 revealed stable findings. However in June 2019 CT scan showed mild enlargement of soft tissue density in the right hilum/suprahilar region. This was thought to potentially represent recurrent disease. It measured 2.4 x 1.3 cm versus 1.4 x 1.[address] was obtained on 07/07/2019 and it demonstrated only slight FDG avidity corresponding to the right hilar/suprahilar enlarging soft tissue density with a max SUV of 3.0. A follow-up CT chest in October 2019 revealed interval increase in size of the soft tissue mass/density posterior to the right mainstem bronchus measuring 2.3 x 1.7 cm. Previously it was noted to be 2.1 x 1.2 cm. There was no CT evidence of progressive adenopathy. Patient underwent a bronchoscopy in October 2019. He was noted to have slight inward bulging of the posterior wall of the right middle lobe bronchus and bronchus intermedius without any compromise to luminal patency. This corresponded to the site of the right lower lobe lesion on imaging. Bronchial mucosa and anatomy were otherwise normal. There were no endobronchial lesions and no secretions. He underwent EBUS and TB NA of the right lower lobe lung nodule and cytology was positive for malignant cells. Pathology demonstrated non-small cell carcinoma favoring adenocarcinoma. Molecular telephone directory distributor driver mutations were all negative. Repeat PET/CT 11/17/2019 revealed mild uptake in the right lung nodule with a max SUV of 2.5. There was no other suspicious uptake. Brain MRI 11/04/2019 revealed no brain metastases. Patient underwent SBRT for local hilar recurrence versus new primary right lower lobe lung cancer. Was completed 2019. Patient had a surveillance CT of the chest on 01/06/2021. That study showed extensive postsurgical change and scarring from right upper lobectomy. There was paramedian fibrosis and bronchiectasis on the right which was noted previously. There was a right subcentimeter mid lung field nodule which was unchanged. No new nodules were observed. No enlarged lymph nodes were observed. There was marked deformity of the right mainstem bronchus. Underwent bronchoscopy 05/18/2021. Airway examination of the left lung was normal. There was extrinsic compression observed in the bronchus intermedius. Lymph node sizing and sampling was performed. EBUS TB NA was performed at lymph node station 7. Rapid onsite evaluation preliminary cytology suggested malignancy and level 7 lymph node. Pathology: FINAL DIAGNOSIS A. BRONCHIAL, #22 EBUS TBNA STATION 7, FINE NEEDLE ASPIRATE (THINPREP, SMEARS AND CELL BLOCK) Positive for malignant cells. Adenocarcinoma. Previous therapy: 1) Abraxane, carboplatin and Keytruda. 2) Pembrolizumab. 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 Current therapy: 1) Taxotere. Presents for ongoing oncologic management. Interim history: Therapy on hold. Had LUMBAR LAMINECTOMY DISCECTOMY L2-3 01/28. Better strength in right thigh flexor. Getting electrical stimulation to help recovery. Cough in the morning and evening. Harder cough in last couple days. Not a lot of sputum. Had thickening of skin associated with erythema dorsum of hands and wrists after tapering prednisone. Resolved. 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 Remains slightly worse in the left. 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 Feet both feel numb--stable as well. PMH, medications and allergies as below personally reviewed by me today. Any changes documented in appropriate section. PHYSICAL EXAM: Vitals: Blood pressure 116/75, pulse 88, temperature 36.1 C (97 F), temperature source Temporal, weight 98.9 kg (218 lb), SpO2 99 %. Well-appearing and in no acute distress. EYES: Sclerae are anicteric bilaterally. LYMPHATIC: There is no palpable cervical or supraclavicular adenopathy. RESPIRATORY: Coarse tubular sounds right lung. CARDIOVASCULAR: Rhythm is regular. ABDOMEN: The abdomen is nondistended. Extremities: No swelling or edema. LABORATORY DATA: Component Latest Ref Rng & Units 03/04/2023 WBC 3.70 - 11.00 k/uL 6.11 RBC 4.20 - 6.00 m/uL 4.73 Hemoglobin 13.0 - 17.0 g/dL 13.9 Hematocrit 39.0 - 51.0 % 42.4 MCV 80.0 - 100.0 fL 89.6 MCH 26.0 - 34.0 pg 29.4 MCHC 30.5 - 36.0 g/dL 32.8 RDW-CV 11.5 - 15.0 % 13.9 Platelet Count 150 - 400 k/uL 170 MPV 9.0 - 12.7 fL 10.2 Neut% % 67.7 Abs Neut (ANC) 1.45 - 7.50 k/uL 4.14 Lymph% % 18.7 Abs Lymph 1.00 - 4.00 k/uL 1.14 [place]% % 7.5 Abs [place] <0.87 k/uL 0.46 Eosin% % 4.3 Abs Eosin <0.46 k/uL 0.26 Baso% % 1.0 Abs Baso <0.11 k/uL 0.06 Immature Gran % % 0.8 IMMATURE GRANS (ABS) <0.10 k/uL 0.05 NRBC /100 WBC 0.0 Absolute nRBC <0.01 k/uL <0.01 DTYPE Auto Protein, Total 6.3 - 8.0 g/dL 7.0 Albumin 3.9 - 4.9 g/dL 4.2 Calcium 8.5 - 10.2 mg/dL 9.6 Bilirubin, Total 0.2 - 1.3 mg/dL 0.5 Alkaline Phosphatase 38 - 113 U/L 143 (H) AST 14 - 40 U/L 24 ALT 10 - 54 U/L 27 Glucose 74 - 99 mg/dL 107 (H) BUN 9 - 24 mg/dL 35 (H) Creatinine 0.73 - 1.22 mg/dL 1.76 (H) Sodium 136 - 144 mmol/L 139 Potassium 3.7 - 5.1 mmol/L 4.4 Chloride 97 - 105 mmol/L 103 CO2 22 - 30 mmol/L 24 Anion Gap 9 - 18 mmol/L 12 eGFR >=60 mL/min/1.73m 39 (L) ASSESSMENT/PLAN: (C34.11) 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) (primary encounter diagnosis) Assessment: -pT3 N0 MX (greater than 7 cm adenocarcinoma) stage 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 -Patient received SBRT for local recurrence of disease. -Recent PET scan in conjunction with biopsy of subcarinal lymph node demonstrate recurrent disease. -PDL-1 1%. -ALK rearrangement not detected. -BRAF - A sequence change: [id number] [p.[id number] (p.[id number])]. Not V600E mutation. -EGFR -No variant detected. -HER2 (ERBB2) - No variant detected. -KRAS - No variant detected. -MET - No variant detected. -PET scan indicates response. Reviewed images. Particularly as evidenced by the right medial lower lobe metastatic deposit. -Continues to tolerate single agent docetaxel very well. -Cough much improved with the addition of Bretzi inhaler. But now change again and consistent with symptoms typical of bronchitis for him. -Reviewed CT results with him. Stable except 6 mm left lung nodule. -He continues to recover from back surgery. We discussed holding off on chemotherapy at this point given difficulty he had with most recent cycles of Taxotere. Plan: -Omit upcoming cycles of Taxotere. -Rx doxycycline. -Continue use of Mucinex. -CT scan followed by office visit in 2 months. If progressive disease then restart Taxotere on an every other week schedule. -Continue pantoprazole. -Continue follow-up with pulmonary medicine. Portions of this documentation were copied and pasted from previous office visit notes in order to provide a cohesive continuity of the history. The note has been reviewed and edited and updated as necessary. I spent a total of 25 minutes on the date of the service which included preparing to see the patient, [id number] patient care, completing clinical documentation, obtaining and/or reviewing separately obtained history, performing a medically appropriate examination, counseling and educating the patient/family/caregiver, ordering medications, tests, or procedures, communicating with other HCPs (not separately reported), and communicating results to the patient/family/caregiver. Dave Noble DO documented in this encounter [facility] 02-19-2023 Note [facility] 02-19-2023 History of Present illness Narrative Radiology Service Progress Note PATIENT NAME: Checo Johnson DATE OF SERVICE: February 19, 2023 TIME: 4:07 PM PATIENT IDENTITY VERIFICATION COMPLETED USING TWO (2) IDENTIFIERS: Name and Date of confirmed by patient verbally. FALL SCREENING: Has the patient had 2 falls in the last year or 1 fall with injury or currently using an Ambulatory Assistive Device (Walker, Cane, Wheelchair, Crutches, etc.)? No PATIENT GENDER DATA: Male PATIENT RELEVANT IMPLANT DATA REVIEWED: Yes RADIOLOGY DEPARTMENT: CT; Exam(s) Completed: Chest Abdomen Pelvis PERIPHERAL IV DATA: Not applicable SIGNED BY: RT Guerrero(R) February 19, 2023 4:07 PM documented in this encounter [facility] 02-04-2023 Note [facility] 02-04-2023 History of Present illness Narrative HISTORY OF PRESENT ILLNESS: Checo Johnson is a 77 year old male. Per notes: had been under the care of Dr. [...] an SUV of 2 for that lesion. Patient underwent a CT chest on 05/07/2016. The inhomogeneous soft tissue density in the posterior medial segment of the right upper lobe was not noted to change in size and measured 3.6 x 3.8 x 4.8 cm. Patient was referred to a thoracic surgeon at [facility]. He ultimately underwent a right thoracotomy with right upper lobe wedge resection and immediate right upper lobectomy along with mediastinal lymphadenectomy on 08/14/2016. The final pathology demonstrated within the wedge [...] sections. Final pathologic staging was pT3 N0. Previous therapy: 1) Adjuvant carbo/paclitaxel completed 01/2017. He had a surveillance CT of the chest in June 2018 which showed stable 4 mm nodules in the right lung. A subsequent surveillance CT chest December 2018 revealed stable findings. However in June 2019 CT scan showed mild enlargement of soft tissue density in the right hilum/suprahilar region. This was thought to potentially represent recurrent disease. It measured 2.4 x 1.3 cm versus 1.4 x 1.[address] was obtained on 07/07/2019 and it demonstrated only slight FDG avidity corresponding to the right hilar/suprahilar enlarging soft tissue density with a max SUV of 3.0. A follow-up CT chest in October 2019 revealed interval increase in size of the soft tissue mass/density posterior to the right mainstem bronchus measuring 2.3 x 1.7 cm. Previously it was noted to be 2.1 x 1.2 cm. There was no CT evidence of progressive adenopathy. Patient underwent a bronchoscopy in October 2019. He was noted to have slight inward bulging of the posterior wall of the right middle lobe bronchus and bronchus intermedius without any compromise to luminal patency. This corresponded to the site of the right lower lobe lesion on imaging. Bronchial mucosa and anatomy were otherwise normal. There were no endobronchial lesions and no secretions. He underwent EBUS and TB NA of the right lower lobe lung nodule and cytology was positive for malignant cells. Pathology demonstrated non-small cell carcinoma favoring adenocarcinoma. Molecular telephone directory distributor driver mutations were all negative. Repeat PET/CT 11/17/2019 revealed mild uptake in the right lung nodule with a max SUV of 2.5. There was no other suspicious uptake. Brain MRI 11/04/2019 revealed no brain metastases. Patient underwent SBRT for local hilar recurrence versus new primary right lower lobe lung cancer. Was completed 2019. Patient had a surveillance CT of the chest on 01/06/2021. That study showed extensive postsurgical change and scarring from right upper lobectomy. There was paramedian fibrosis and bronchiectasis on the right which was noted previously. There was a right subcentimeter mid lung field nodule which was unchanged. No new nodules were observed. No enlarged lymph nodes were observed. There was marked deformity of the right mainstem bronchus. Underwent bronchoscopy 05/18/2021. Airway examination of the left lung was normal. There was extrinsic compression observed in the bronchus intermedius. Lymph node sizing and sampling was performed. EBUS TB NA was performed at lymph node station 7. Rapid onsite evaluation preliminary cytology suggested malignancy and level 7 lymph node. Pathology: FINAL DIAGNOSIS A. BRONCHIAL, #22 EBUS TBNA STATION 7, FINE NEEDLE ASPIRATE (THINPREP, SMEARS AND CELL BLOCK) Positive for malignant cells. Adenocarcinoma. Previous therapy: 1) Abraxane, carboplatin and Keytruda. 2) Pembrolizumab. 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 Current therapy: 1) Taxotere last dose November 2022, held due to toxicity and recent back surgery Here for follow up, doing well. 1 week post op from back surgery. CLINICAL IMPRESSION: Non small cell lung cancer as above RECOMMENDATION/PLAN: 1. Update CTscans 2. Decide to resume taxotere after that, probably change dosing schedule due to toxicity Written and verbal health teaching given to patient, patient verbalizes understanding and agrees with treatment plan. PAST MEDICAL HISTORY Diagnosis Date Bladder cancer (HCC) Chronic kidney disease COPD (chronic obstructive pulmonary disease) (HCC) Gout Hypercholesterolemia Hypogonadism in male Lung cancer (HCC) Radiation pneumonitis (HCC) Renal cancer (HCC) Shingles 2021 Skin cancer Sleep apnea PAST SURGICAL HISTORY Procedure Laterality Date APPENDECTOMY PAST SURGICAL HISTORY OF 2018 Back surgery PAST SURGICAL HISTORY OF 2009 Bladder surgery PAST SURGICAL HISTORY OF 2014 Skin cancer removed from head PAST SURGICAL HISTORY OF Right 2017 Right upper lobectomy PAST SURGICAL HISTORY OF Right 07/2019 Cataract surgery PAST SURGICAL HISTORY OF Left 08/2019 Cataract Surgery PAST SURGICAL HISTORY OF 08/2019 nasal surgery REMOVAL OF KIDNEY Right 2003 TONSILLECTOMY HX 1997 FAMILY HISTORY Problem Relation Age of Onset Hypertension Mother other (Lung Cancer) Father other (Parkinson's Disease) Sister other (Bone Cancer) Brother other (Lung Cancer) Brother Diabetes Brother other (Melanoma) Brother other (Hepatitis C) Brother Breast Cancer Sister other (Lung Cancer) Sister other (Parkinson's Disease) Sister Cancer Sister Brain Cancer, lung cancer Social History Tobacco Use Smoking status: Former Packs/day: 1.00 Years: 30.00 Pack years: 30.00 Types: Cigarettes Quit date: 09/24/1996 Years since quittin.3 Smokeless tobacco: Never Vaping Use Vaping Use: Never used Substance Use Topics Alcohol use: Yes Alcohol/week: 4.0 standard drinks Types: 4 Glasses of Wine (5oz) per week Comment: occassionally/ social Drug use: No ALLERGIES: ALLERGIES No Known Allergies CURRENT OUTPATIENT MEDICATIONS: predniSONE (DELTASONE) 5 mg tablet Take 1.5 tablets by mouth once daily. fluconazole (DIFLUCAN) 100 mg tablet Take one daily for 7 days. Do not take Azithromycin while on fluconazole erythromycin (ROMYCIN) 5 mg/gram (0.5 %) ophthalmic ointment Use 1 application in both eyes twice daily. lehdpppeca-heujiidy-ezhpoeqqog (BREZTRI AEROSPHERE) 160-9-4.8 mcg/actuation HFA aerosol inhaler Inhale 2 Puffs as instructed twice daily. cyanocobalamin, vitamin B-12, (VITAMIN B-12 INJECTION) One injection twice monthly. albuterol HFA (PROVENTIL HFA, VENTOLIN HFA) 90 mcg/actuation inhaler Inhale 2 Puffs as instructed every 4 hours as needed. pantoprazole DR (PROTONIX) 40 mg tablet Take 40 mg by mouth once daily. ondansetron (ZOFRAN) 8 mg tablet Take 1 tablet by mouth every 8 hours as needed for nausea/vomiting. doxepin capsule 25 mg Take 25 mg by mouth daily at bedtime. acetaminophen (TYLENOL EXTRA STRENGTH) 500 mg tablet Take 500 mg by mouth as needed. febuxostat (ULORIC) 40 mg tab Take 40 mg by mouth once daily. testosterone cypionate (DEPO-TESTOSTERONE) 100 mg/mL injection One IM injection twice monthly. pramipexole (MIRAPEX) 0.5 mg tablet Take two tablets by mouth twice daily. lifitegrast (XIIDRA) 5 % ophthalmic drops Use 1 Drop in eyes twice daily. (Patient not taking: Reported on 02/04/2023) REVIEW OF SYSTEMS: GENERAL: No fever, night sweats, weight loss or malaise. All other reviewed and negative other than HPI. PHYSICAL EXAMINATION: VITAL SIGNS: BP 120/87 Pulse 85 Temp (Src) 96.8 (Temporal Artery) Wt 221 lb 8 oz (100.5kg) SpO2 95% GENERAL APPEARANCE: Well appearing, in no acute distress, alert and oriented x3, well-hydrated, well nourished. LUNGS: Lungs clear to auscultation, no wheezing or rhonchi. HEART: Negative. RRR without murmur, gallop, or rubs. No ectopy. I spent a total of 30 minutes on the date of the service which included preparing to see the patient, [id number] patient care, completing clinical documentation, obtaining and/or reviewing separately obtained history, performing a medically appropriate examination, counseling and educating the patient/family/caregiver, ordering medications, tests, or procedures, independently interpreting results (not separately reported), and communicating results to the patient/family/caregiver. Electronically Signed: Valentino Fagan MD February 04, 2023 12:33 PM documented in this encounter [facility] 01-15-2023 Note [facility] 12-04-2022 Miscellaneous Notes Patient has been identified by name and date of : Yes Requested Prescriptions Pending Prescriptions Disp Refills fluconazole (DIFLUCAN) 100 mg tablet 7 tablet 0 Sig: Take one daily for 7 days. Do not take Azithromycin while on fluconazole RX INSTRUCTIONS: Patient aware RX will be sent to pharmacy. No need to notify patient. Patient states he needs a refill. He has 1 pill left and thrush is not quite cleared up. Confirmed [facility] in [place]. Radha Lafleur Ma documented in this encounter [facility] 12-03-2022 Note [facility] 12-03-2022 History of Present illness Narrative Diagnosis: 1) NSCLC. HPI: The patient is a 76 yo male with PMH significant for RCC (right nephrectomy at [place] [id number]; followed up with Dr. Hernandez), superficial bladder cancer, LUIS CARLOS (underwent uvulopalatopharyngoplasty by Dr. Aguilera), COPD and gout. He had been under the care of [...] an SUV of 2 for that lesion. Patient underwent a CT chest on 05/07/2016. The inhomogeneous soft tissue density in the posterior medial segment of the right upper lobe was not noted to change in size and measured 3.6 x 3.8 x 4.8 cm. Patient was referred to a thoracic surgeon at [facility]. He ultimately underwent a right thoracotomy with right upper lobe wedge resection and immediate right upper lobectomy along with mediastinal lymphadenectomy on 08/14/2016. The final pathology demonstrated within the wedge [...] sections. Final pathologic staging was pT3 N0. Previous therapy: 1) Adjuvant carbo/paclitaxel completed 01/2017. He had a surveillance CT of the chest in June 2018 which showed stable 4 mm nodules in the right lung. A subsequent surveillance CT chest December 2018 revealed stable findings. However in June 2019 CT scan showed mild enlargement of soft tissue density in the right hilum/suprahilar region. This was thought to potentially represent recurrent disease. It measured 2.4 x 1.3 cm versus 1.4 x 1.[address] was obtained on 07/07/2019 and it demonstrated only slight FDG avidity corresponding to the right hilar/suprahilar enlarging soft tissue density with a max SUV of 3.0. A follow-up CT chest in October 2019 revealed interval increase in size of the soft tissue mass/density posterior to the right mainstem bronchus measuring 2.3 x 1.7 cm. Previously it was noted to be 2.1 x 1.2 cm. There was no CT evidence of progressive adenopathy. Patient underwent a bronchoscopy in October 2019. He was noted to have slight inward bulging of the posterior wall of the right middle lobe bronchus and bronchus intermedius without any compromise to luminal patency. This corresponded to the site of the right lower lobe lesion on imaging. Bronchial mucosa and anatomy were otherwise normal. There were no endobronchial lesions and no secretions. He underwent EBUS and TB NA of the right lower lobe lung nodule and cytology was positive for malignant cells. Pathology demonstrated non-small cell carcinoma favoring adenocarcinoma. Molecular telephone directory distributor driver mutations were all negative. Repeat PET/CT 11/17/2019 revealed mild uptake in the right lung nodule with a max SUV of 2.5. There was no other suspicious uptake. Brain MRI 11/04/2019 revealed no brain metastases. Patient underwent SBRT for local hilar recurrence versus new primary right lower lobe lung cancer. Was completed 2019. Patient had a surveillance CT of the chest on 01/06/2021. That study showed extensive postsurgical change and scarring from right upper lobectomy. There was paramedian fibrosis and bronchiectasis on the right which was noted previously. There was a right subcentimeter mid lung field nodule which was unchanged. No new nodules were observed. No enlarged lymph nodes were observed. There was marked deformity of the right mainstem bronchus. Underwent bronchoscopy 05/18/2021. Airway examination of the left lung was normal. There was extrinsic compression observed in the bronchus intermedius. Lymph node sizing and sampling was performed. EBUS TB NA was performed at lymph node station 7. Rapid onsite evaluation preliminary cytology suggested malignancy and level 7 lymph node. Pathology: FINAL DIAGNOSIS A. BRONCHIAL, #22 EBUS TBNA STATION 7, FINE NEEDLE ASPIRATE (THINPREP, SMEARS AND CELL BLOCK) Positive for malignant cells. Adenocarcinoma. Previous therapy: 1) Abraxane, carboplatin and Keytruda. 2) Pembrolizumab. 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 Current therapy: 1) Taxotere. Presents for ongoing oncologic management. Interim history: Cough improved--only at night. No cough during the day. Mucinex didn't help. Was given Breztri inhaler and that has helped the cough. Down to 10 mg daily on prednisone. Feels less short of breath. Working on remodeling his porch and he's doing well as long as he takes his time. Had thickening of skin associated with erythema dorsum of hands and wrists after tapering prednisone. Burning pain and tenderness. Saw Dr. Chandler who Rx clobetasol 0.05% cream. Saw Dr. Johnson who advised he continue same but no more than BID. No longer painful or tender, but extending more proximally. 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 Remains slightly worse in the left. 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 Feet both feel numb--stable as well. PMH, medications and allergies as below personally reviewed by me today. Any changes documented in appropriate section. PHYSICAL EXAM: Vitals: Blood pressure 136/91, pulse 74, temperature 36.6 C (97.9 F), temperature source Temporal, weight 102.1 kg (225 lb), SpO2 97 %. Well-appearing and in no acute distress. EYES: Sclerae are anicteric bilaterally. LYMPHATIC: There is no palpable cervical or supraclavicular adenopathy. RESPIRATORY: Coarse tubular sounds right lung. CARDIOVASCULAR: Rhythm is regular. ABDOMEN: The abdomen is nondistended. Extremities: No swelling or edema. SKIN: Somewhat puffy erythematous rash involving the dorsum of the hands and wrists somewhat scattered. Exacerbated in areas of previous scar and excoriation. Not tender. Areas of peeling. LABORATORY DATA: Component Latest Ref Rng & Units 10/08/2022 WBC 3.70 - 11.00 k/uL 9.69 RBC 4.20 - 6.00 m/uL 3.70 (L) Hemoglobin 13.0 - 17.0 g/dL 11.5 (L) Hematocrit 39.0 - 51.0 % 35.8 (L) MCV 80.0 - 100.0 fL 96.8 MCH 26.0 - 34.0 pg 31.1 MCHC 30.5 - 36.0 g/dL 32.1 RDW-CV 11.5 - 15.0 % 17.2 (H) Platelet Count 150 - 400 k/uL 217 MPV 9.0 - 12.7 fL 9.6 Neut% % 85.5 Abs Neut (ANC) 1.45 - 7.50 k/uL 8.28 (H) Lymph% % 5.3 Abs Lymph 1.00 - 4.00 k/uL 0.51 (L) [place]% % 7.7 Abs [place] <0.87 k/uL 0.75 Eosin% % 0.2 Abs Eosin <0.46 k/uL <0.03 Baso% % 0.1 Abs Baso <0.11 k/uL <0.03 Immature Gran % % 1.2 IMMATURE GRANS (ABS) <0.10 k/uL 0.12 (H) NRBC /100 WBC 0.0 Absolute nRBC <0.01 k/uL <0.01 DTYPE Auto Protein, Total 6.3 - 8.0 g/dL 5.9 (L) Albumin 3.9 - 4.9 g/dL 3.6 (L) Calcium 8.5 - 10.2 mg/dL 8.8 Bilirubin, Total 0.2 - 1.3 mg/dL 0.5 Alkaline Phosphatase 38 - 113 U/L 60 AST 14 - 40 U/L 18 ALT 10 - 54 U/L 22 Glucose 74 - 99 mg/dL 82 BUN 9 - 24 mg/dL 39 (H) Creatinine 0.73 - 1.22 mg/dL 1.66 (H) Sodium 136 - 144 mmol/L 138 Potassium 3.7 - 5.1 mmol/L 3.9 Chloride 97 - 105 mmol/L 101 CO2 22 - 30 mmol/L 28 Anion Gap 9 - 18 mmol/L 9 eGFR >=60 mL/min/1.73m 42 (L) ASSESSMENT/PLAN: (C34.11) 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) (primary encounter diagnosis) Assessment: -pT3 N0 MX (greater than 7 cm adenocarcinoma) stage 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 -Patient received SBRT for local recurrence of disease. -Recent PET scan in conjunction with biopsy of subcarinal lymph node demonstrate recurrent disease. -PDL-1 1%. -ALK rearrangement not detected. -BRAF - A sequence change: [id number] [[id number] ([id number])]. Not V600E mutation. -EGFR -No variant detected. -HER2 (ERBB2) - No variant detected. -KRAS - No variant detected. -MET - No variant detected. -PET scan indicates response. Reviewed images. Particularly as evidenced by the right medial lower lobe metastatic deposit. -Continues to tolerate single agent docetaxel very well. -Cough much improved with the addition of Bretzi inhaler. -Prednisone tapered to 10 mg a day. -Rash secondary to Taxotere responding to clobetasol topically and continue prednisone 10 mg daily. -Reviewed CT results with him. Continued response of at least 3 metastatic areas of non-small cell lung cancer. -Discussed omitting upcoming cycle in order to allow more time for dermatologic toxicity to subside. Plan: -Omit upcoming cycle of Taxotere. -Continue prednisone 10 mg daily per dermatology request. -Patient will be contacted in 2 weeks. If marked improvement of rash then taper prednisone to 5 mg daily. -Raise head of bed 4 inches. -Continue pantoprazole. -Repeat imaging after 2 further cycles. -Continue follow-up with pulmonary medicine. Portions of this documentation were copied and pasted from previous office visit notes in order to provide a cohesive continuity of the history. The note has been reviewed and edited and updated as necessary. I spent a total of 30 minutes on the date of the service which included preparing to see the patient, [id number] patient care, completing clinical documentation, obtaining and/or reviewing separately obtained history, performing a medically appropriate examination, counseling and educating the patient/family/caregiver, communicating with other HCPs (not separately reported), and communicating results to the patient/family/caregiver. Dave Noble DO documented in this encounter [facility] 12-03-2022 Miscellaneous Notes Pharmacy initiated request for Diflucan, filled by [facility] 6 days ago. Theresa Brennan LPN documented in this encounter [facility] 11-27-2022 Miscellaneous Notes Physician: Margarita collins Call from patient requesting refill. Please E-Scribe Patient states thrush was almost gone when he ran out of medication. Patient states he feels chemo delays medication effectiveness. Patient wonders if he could have refill on this medication along with an addition refill. Requested Prescriptions Pending Prescriptions Disp Refills fluconazole (DIFLUCAN) 100 mg tablet 7 tablet 0 Sig: Take one daily for 7 days. Do not take Azithromycin while on fluconazole [facility] Phone #: [phone] Dorina Solares LPN documented in this encounter [facility] 11-27-2022 Note [facility] 11-27-2022 History of Present illness Narrative Radiology Service Progress Note PATIENT NAME: Checo Johnson DATE OF SERVICE: November 27, 2022 TIME: 2:20 PM PATIENT IDENTITY VERIFICATION COMPLETED USING TWO (2) IDENTIFIERS: Name and Date of confirmed by patient verbally. FALL SCREENING: Has the patient had 2 falls in the last year or 1 fall with injury or currently using an Ambulatory Assistive Device (Walker, Cane, Wheelchair, Crutches, etc.)? No PATIENT GENDER DATA: Male PATIENT RELEVANT IMPLANT DATA REVIEWED: Yes RADIOLOGY DEPARTMENT: CT; Exam(s) Completed: Chest PERIPHERAL IV DATA: Not applicable SIGNED BY: RT Guerrero(R) November 27, 2022 2:20 PM documented in this encounter [facility] 11-20-2022 Miscellaneous Notes Spoke with pt and confirmed apt Called pt to inform them of a treatment time change on 11/20 due to needing to get a more urgent pt's treatment worked in. 1st attempt: LM When pt returns call please confirm new treatment and lab time. Once completed please document in this encounter. Thank you! documented in this encounter [facility] 11-13-2022 Miscellaneous Notes Left messages on home answering machine and 's voicemail Bun and creatinine are increased. Pt. Needs to drink more fluids. If question please contact office. Betty Jaimes LPN Increase in BUN and serum creatinine. Advise him to try to hydrate more liberally. Dave Noble DO documented in this encounter [facility] 11-05-2022 Note [facility] 11-05-2022 History of Present illness Narrative Chief Complaint Patient presents with: Established Patient HPI: Checo Johnson is a 76 year old male who presents here today for evaluation for treatment tomorrow. Per Dr. Noble's previous note: H/o RCC (right nephrectomy at [facility] 2003; followed up with Dr. Hernandez), superficial bladder cancer, LUIS CARLOS (underwent uvulopalatopharyngoplasty by Dr. Aguilera), COPD and gout. He had been under the care of [...] an SUV of 2 for that lesion. Patient underwent a CT chest on 05/07/2016. The inhomogeneous soft tissue density in the posterior medial segment of the right upper lobe was not noted to change in size and measured 3.6 x 3.8 x 4.8 cm. Patient was referred to a thoracic surgeon at [facility]. He ultimately underwent a right thoracotomy with right upper lobe wedge resection and immediate right upper lobectomy along with mediastinal lymphadenectomy on 08/14/2016. The final pathology demonstrated within the wedge [...] sections. Final pathologic staging was pT3 N0. Previous therapy: 1) Adjuvant carbo/paclitaxel completed 01/2017. He had a surveillance CT of the chest in June 2018 which showed stable 4 mm nodules in the right lung. A subsequent surveillance CT chest December 2018 revealed stable findings. However in June 2019 CT scan showed mild enlargement of soft tissue density in the right hilum/suprahilar region. This was thought to potentially represent recurrent disease. It measured 2.4 x 1.3 cm versus 1.4 x 1.[address] was obtained on 07/07/2019 and it demonstrated only slight FDG avidity corresponding to the right hilar/suprahilar enlarging soft tissue density with a max SUV of 3.0. A follow-up CT chest in October 2019 revealed interval increase in size of the soft tissue mass/density posterior to the right mainstem bronchus measuring 2.3 x 1.7 cm. Previously it was noted to be 2.1 x 1.2 cm. There was no CT evidence of progressive adenopathy. Patient underwent a bronchoscopy in October 2019. He was noted to have slight inward bulging of the posterior wall of the right middle lobe bronchus and bronchus intermedius without any compromise to luminal patency. This corresponded to the site of the right lower lobe lesion on imaging. Bronchial mucosa and anatomy were otherwise normal. There were no endobronchial lesions and no secretions. He underwent EBUS and TB NA of the right lower lobe lung nodule and cytology was positive for malignant cells. Pathology demonstrated non-small cell carcinoma favoring adenocarcinoma. Molecular telephone directory distributor driver mutations were all negative. Repeat PET/CT 11/17/2019 revealed mild uptake in the right lung nodule with a max SUV of 2.5. There was no other suspicious uptake. Brain MRI 11/04/2019 revealed no brain metastases. Patient underwent SBRT for local hilar recurrence versus new primary right lower lobe lung cancer. Was completed 2019. Patient had a surveillance CT of the chest on 01/06/2021. That study showed extensive postsurgical change and scarring from right upper lobectomy. There was paramedian fibrosis and bronchiectasis on the right which was noted previously. There was a right subcentimeter mid lung field nodule which was unchanged. No new nodules were observed. No enlarged lymph nodes were observed. There was marked deformity of the right mainstem bronchus. Underwent bronchoscopy 05/18/2021. Airway examination of the left lung was normal. There was extrinsic compression observed in the bronchus intermedius. Lymph node sizing and sampling was performed. EBUS TB NA was performed at lymph node station 7. Rapid onsite evaluation preliminary cytology suggested malignancy and level 7 lymph node. Pathology: FINAL DIAGNOSIS A. BRONCHIAL, #22 EBUS TBNA STATION 7, FINE NEEDLE ASPIRATE (THINPREP, SMEARS AND CELL BLOCK) Positive for malignant cells. Adenocarcinoma. Previous therapy: 1) Abraxane, carboplatin and Keytruda. 2) Pembrolizumab. 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 Current therapy: 1) Taxotere. First cycle 06/19/22. No new concerns today. Appetite: Good. Energy level: Not much at all. I am sleeping better. Denies fevers. Mouth:denies sores Resp: My cough is better. +productive cough-followed by pulm for recent bronchitis, denies sob at rest, occ. 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 Past medical history, appointments, medications, allergies reviewed. No changes. EXAM: BP 119/76 Pulse 79 Temp 36.2 C (97.1 F) Ht 186 cm (6' 1.23 ) Wt 104.3 kg (230 lb) SpO2 97% BMI 30.16 kg/m APPEARANCE Well appearing, alert, in no acute distress, well-hydrated, well nourished. HEART RRR with normal S1 and S2, no murmurs LUNG clear to auscultation LYMPH NODES No cervical lymphadenopathy, No supraclavicular lymphadenopathy, and No axillary lymphadenopathy. ABDOMEN bowel sounds normoactive, soft, non-tender EXTREMITIES No edema NEURO Awake, alert and oriented x 3, Normal gait, and No involuntary motions. SKIN Skin color, texture, turgor normal, no suspicious rashes or lesions LABS: Pending ASSESSMENT/PLAN: 1. 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) - ICD9: 162.3, ICD10: C34.11 (primary diagnosis) NSCLC pT3 N0 MX (greater than 7 cm adenocarcinoma) stage 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 Patient received SBRT for local recurrence of disease. 2. 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 - Labs pending. - Continue prednisone 10mg for the rest of this week and next. - Taper prednisone starting the week of November 19 to 5mg. - Continue current medications. - Continue follow up with PULM. - CT chest after this cycle-the week of November 26. - Proceed as scheduled for #6 taxotere tomorrow pending all labs. - Follow up as scheduled otherwise. - Pt. aware to call office with any questions/concerns. The patient indicates understanding of these issues and agrees with the plan. Discussed case with Dr. Noble who agrees with treatment plan. All documentation from previous visit of 10/08/22-Dr. Noble was copied and pasted, documentation has been reviewed and edited as necessary for today's visit. Xuan Lora APRN.OIL PIPE INSPECTOR documented in this encounter [facility] 10-29-2022 Miscellaneous Notes Patient informed of Dr. Noble's response, stated understanding. Nohelia Contreras RN Yes, can decrease to 10 mg daily. Dave Noble DO [facility] Care Coordination FOLLOW-UP NOTE Patient identified by name and date of . YES Spoke to patient Summary: (Reason for follow-up) Called patient to follow-up on cough/SOB Concerns: (New Barriers to care) Patient stated cough and SOB is about the same but the cough seems to be better during the day and patient reports less sleep disturbances. Patient stated he is still coughing up martinez-green phlegm and is currently being treated for bronchitis. Patient is on azithromycin daily, prescribed by Dr. Collins. Patient stated PT is going well, he is going to be increased to 3 days a week soon; 1 day for PT and the other 2 days will be focused on balance. Patient elevated the head of the bed as directed by Dr. Noble at his last OV. Overall, patient seems to be doing better than before. Patient is still on prednisone, 20 mg daily. Patient is asking if this can be tapered down. Patient stated he will be calling in a refill at the end of the week. Patient verbalized when to seek Medical Attention and an understanding of after- hours phone number and process: Yes Care Coordination Plan: Will follow up after discussing prednisone taper with Dr. Noble. Nohelia Contreras RN October 29, 2022 documented in this encounter [facility] 10-11-2022 Note [facility] 10-11-2022 History of Present illness Narrative Images from the original note were not included. . [facility] [place] Note Patient name: Checo Johnson PCP: David Chandler MD CC: Severe cough HPI: Checo Johnson 76 year old male former smoker with PMH significant for multiple cancers including renal cell carcinoma, bladder and lung cancer. Lung cancer history dates back to 2017 with RUL adenocarcinoma s/p lobectomy. He had recurrence in right hilum in 2019 s/p SBRT, abraxane/carboplatin/Keytruda. Recent imaging pertinent for progressive GGO. Patient plagued with severe cough. S/p bronchoscopy with TBBx showed no evidence of cancer recurrence, only inflammation. Treated for possible check point inhibitor toxicity with steroids. Cough improved but had recrudescence of his cough with steroid taper. Most recent PET scan showed an enlarging RLL nodule consistent with progression of disease. Dr. Noble reluctant to start chemo due to persistent pulmonary issues. Reevaluation per radiation oncology recommended repeat CT 2 months as scarring from radiation versus evolving carcinoma cannot be excluded. Treatment for radiation pneumonitis with steroids has not improved cough or infiltrate. He has been on 40 mg a day, just seen by oncology who decreased dose to 20 mg a day last week. He has been compliant with Symbicort and albuterol. Current chemotherapy with Taxotere which has shown improvement in his lung nodules consistent with response to chemotherapy but his groundglass infiltrate in right upper lobe has not changed significantly. Today he states his cough has been worse over the last several weeks. Initially coughing worse at night especially in supine position concerning for possible aspiration or GERD. Now he has been coughing throughout the day. No obvious trigger for his cough. He will have coughing jags that are fatiguing. At times able to expectorate dark green thick mucus balls. No fevers, chest pain or chills. No wheezing or significant dyspnea. Cough has not been responsive cough syrup, Tessalon Perles. DATA: Labs: Component Ref Range & Units 3 d ago (10/08/22) WBC 3.70 - 11.00 k/uL 9.69 RBC 4.20 - 6.00 m/uL 3.70 Low Hemoglobin 13.0 - 17.0 g/dL 11.5 Low Hematocrit 39.0 - 51.0 % 35.8 Low MCV 80.0 - 100.0 fL 96.8 MCH 26.0 - 34.0 pg 31.1 MCHC 30.5 - 36.0 g/dL 32.1 RDW-CV 11.5 - 15.0 % 17.2 High Platelet Count 150 - 400 k/uL 217 MPV 9.0 - 12.7 fL 9.6 Neutrophils % % 85.5 Abs Neut 1.45 - 7.50 k/uL 8.28 High Lymphocytes % % 5.3 Abs Lymph 1.00 - 4.00 k/uL 0.51 Low Monocytes % % 7.7 Abs [place] <0.87 k/uL 0.75 Eosinophils % % 0.2 Abs Eosin <0.46 k/uL <0.03 Basophils % % 0.1 Abs Baso <0.11 k/uL <0.03 Immature Granulocytes % % 1.2 Abs Immature Gran <0.10 k/uL 0.12 High NRBC /100 WBC 0.0 Absolute nRBC <0.01 k/uL <0.01 Diff Type Aut Imaging / Diagnostic Studies: DATE OF EXAM: Oct 02 2022 11:00AM MDP 0063 - NM PET/CT SKULL-THIGH SUBQ / IMPRESSION: 1. NECK: * No FDG avid neoplastic process. 2. CHEST: * No FDG avid neoplastic process. Unchanged mild diffuse FDG activity in the right lung consolidation with architectural distortion, favoring post radiation changes. * Unchanged or minimally decreased size of small non-FDG avid lung nodules, recommend continued CT follow-up. 3. ABDOMEN/PELVIS: * No FDG avid neoplastic process. 4. EXTREMITIES/SKELETON: * No suspicious FDG avid osseous lesion. I personally reviewed the images and agree with the above assessment PAST MEDICAL HISTORY Diagnosis Date Bladder cancer (HCC) Chronic kidney disease COPD (chronic obstructive pulmonary disease) (HCC) Gout Hypercholesterolemia Hypogonadism in male Lung cancer (HCC) Radiation pneumonitis (HCC) Renal cancer (HCC) Shingles 2021 Skin cancer Sleep apnea ALLERGIES No Known Allergies guaiFENesin (MUCINEX) 600 mg 12 hr tablet Take 1,200 mg by mouth twice daily. predniSONE (DELTASONE) 20 mg tablet Take 1 tablet by mouth once daily. pantoprazole DR (PROTONIX) 40 mg tablet Take 40 mg by mouth once daily. ykhgvvvywa-qnfwlblb-tbphwcgbtr (BREZTRI AEROSPHERE) 160-9-4.8 mcg/actuation HFA aerosol inhaler Inhale 2 Puffs as instructed twice daily. azithromycin (ZITHROMAX) 250 mg tablet Take one daily with food fluconazole (DIFLUCAN) 100 mg tablet Take one daily for 7 days. Do not take Azithromycin while on fluconazole nystatin (MYCOSTATIN) 100,000 unit/mL suspension SWISH AND SWALLOW 5 MILLILITERS BY MOUTH FOUR TIMES A DAY eqzsejtpisGDDHE-sywmah-vyqeybkjj (BMX 1:1:1) 1:1:1 liqd Take 10 mL by mouth every 4 hours as needed. swish and spit. cyanocobalamin, vitamin B-12, (VITAMIN B-12 INJECTION) One injection twice monthly. albuterol HFA (PROVENTIL HFA, VENTOLIN HFA) 90 mcg/actuation inhaler Inhale 2 Puffs as instructed every 4 hours as needed. budesonide-formoterol (SYMBICORT) 160-4.5 mcg/actuation inhaler Inhale 2 Puffs as instructed twice daily. (Patient not taking: Reported on 10/11/2022) Ciclopirox (LOPROX) 8 % solution APPLY TOPICALLY TO TOENAIL ONCE A DAY. CLEANSE TOENAILS ONCE A WEEK WITH RUBBING ALCOHOL loratadine (CLARITIN) 10 mg tablet Take 10 mg by mouth once daily. ondansetron (ZOFRAN) 8 mg tablet Take 1 tablet by mouth every 8 hours as needed for nausea/vomiting. doxepin capsule 25 mg Take 25 mg by mouth daily at bedtime. acetaminophen (TYLENOL EXTRA STRENGTH) 500 mg tablet Take 500 mg by mouth as needed. febuxostat (ULORIC) 40 mg tab Take 40 mg by mouth once daily. testosterone cypionate (DEPO-TESTOSTERONE) 100 mg/mL injection One IM injection twice monthly. pramipexole (MIRAPEX) 0.5 mg tablet Take two tablets by mouth twice daily. Social History Tobacco Use Smoking status: Former Packs/day: 1.00 Years: 30.00 Pack years: 30.00 Types: Cigarettes Quit date: 09/24/1996 Years since quittin.0 Smokeless tobacco: Never Vaping Use Vaping Use: Never used Substance Use Topics Alcohol use: Yes Alcohol/week: 4.0 standard drinks Types: 4 Glasses of Wine (5oz) per week Comment: occassionally/ social Drug use: No FAMILY HISTORY Problem Relation Age of Onset Hypertension Mother other (Lung Cancer) Father other (Parkinson's Disease) Sister other (Bone Cancer) Brother other (Lung Cancer) Brother Diabetes Brother other (Melanoma) Brother other (Hepatitis C) Brother Breast Cancer Sister other (Lung Cancer) Sister other (Parkinson's Disease) Sister Cancer Sister Brain Cancer, lung cancer PAST SURGICAL HISTORY Procedure Laterality Date APPENDECTOMY PAST SURGICAL HISTORY OF 2018 Back surgery PAST SURGICAL HISTORY OF 2009 Bladder surgery PAST SURGICAL HISTORY OF 2014 Skin cancer removed from head PAST SURGICAL HISTORY OF Right 2017 Right upper lobectomy PAST SURGICAL HISTORY OF Right 07/2019 Cataract surgery PAST SURGICAL HISTORY OF Left 08/2019 Cataract Surgery PAST SURGICAL HISTORY OF 08/2019 nasal surgery REMOVAL OF KIDNEY Right 2003 TONSILLECTOMY HX 1998 PMH, Social history, family history and surgical history reviewed and updated in EMR REVIEW OF SYSTEMS: CONSTITUTIONAL: No fevers, chills, nightsweats, unintended weight loss. Weight gain with steroids HEENT: Denies nasal congestion/sinus symptoms, allergy problems. EYES: No diplopia or blurry vision. Lid drop CARDIOVASCULAR: No chest pain, dyspnea, palpitations, orthopnea, PND. Edema PULM: See HPI GI: No dysphagia/odynophagia, problematic reflux NEURO: No new balance problems, peripheral weakness/paresthesias or numbness of concern. MUSC-SKEL: No joint pain, swelling, or erythema. INTEGUMENTARY: No new skin changes or rashes PHYSICAL EXAMINATION: Weight, 104.3 kg, BP 132/80, pulse 90, RR 17, SPO2 96% on room air Drropy eye lid Thrush Lungs clear Edema General Appearance: Obese male, NAD Skin: Skin color, texture, turgor normal, no suspicious rashes or lesions. Head: Normocephalic, no masses, lesions, tenderness or abnormalities. Eyes: Sclera, conjunctiva normal. Left lid droop Oropharynx: Patchy thrush Neck: No JVD, no masses, no adenopathy Lungs: Not labored, normal to percussion, no wheezes or crackles Heart: Regular rate and rhythm, no murmurs gallops Extremities: Edema, no clubbing Assessment/Plan: 1. Chronic cough -Etiology uncertain but appears to be combination of radiation fibrosis, architectural distortion of the airways and airways inflammation -Agree with decrease steroid with taper to off -Changed inhaled therapy to Breztri -Chronic low-dose azithromycin therapy (ECG with normal QT interval) 2. Lung cancer right upper lobe -Appears to be responding to Taxotere -Active treatment plan per oncology 3. Groundglass opacity on imaging -No change in groundglass opacity likely due to radiation fibrosis 4. Thrush -Fluconazole. Patient instructed to hold azithromycin until he completes his course of fluconazole Margarita Collins MD [facility] [place] documented in this encounter [facility] 10-08-2022 Note [facility] 10-08-2022 History of Present illness Narrative Diagnosis: 1) NSCLC. HPI: The patient is a 76 yo male with PMH significant for RCC (right nephrectomy at [facility] 2004; followed up with Dr. Hernandez), superficial bladder cancer, LUIS CARLOS (underwent uvulopalatopharyngoplasty by Dr. Aguilera), COPD and gout. He had been under the care of [...] an SUV of 2 for that lesion. Patient underwent a CT chest on 05/07/2016. The inhomogeneous soft tissue density in the posterior medial segment of the right upper lobe was not noted to change in size and measured 3.6 x 3.8 x 4.8 cm. Patient was referred to a thoracic surgeon at [facility]. He ultimately underwent a right thoracotomy with right upper lobe wedge resection and immediate right upper lobectomy along with mediastinal lymphadenectomy on 08/14/2016. The final pathology demonstrated within the wedge [...] sections. Final pathologic staging was pT3 N0. Previous therapy: 1) Adjuvant carbo/paclitaxel completed 01/2017. He had a surveillance CT of the chest in June 2018 which showed stable 4 mm nodules in the right lung. A subsequent surveillance CT chest December 2018 revealed stable findings. However in June 2019 CT scan showed mild enlargement of soft tissue density in the right hilum/suprahilar region. This was thought to potentially represent recurrent disease. It measured 2.4 x 1.3 cm versus 1.4 x 1.[address] was obtained on 07/07/2019 and it demonstrated only slight FDG avidity corresponding to the right hilar/suprahilar enlarging soft tissue density with a max SUV of 3.0. A follow-up CT chest in October 2019 revealed interval increase in size of the soft tissue mass/density posterior to the right mainstem bronchus measuring 2.3 x 1.7 cm. Previously it was noted to be 2.1 x 1.2 cm. There was no CT evidence of progressive adenopathy. Patient underwent a bronchoscopy in October 2019. He was noted to have slight inward bulging of the posterior wall of the right middle lobe bronchus and bronchus intermedius without any compromise to luminal patency. This corresponded to the site of the right lower lobe lesion on imaging. Bronchial mucosa and anatomy were otherwise normal. There were no endobronchial lesions and no secretions. He underwent EBUS and TB NA of the right lower lobe lung nodule and cytology was positive for malignant cells. Pathology demonstrated non-small cell carcinoma favoring adenocarcinoma. Molecular telephone directory distributor driver mutations were all negative. Repeat PET/CT 11/17/2019 revealed mild uptake in the right lung nodule with a max SUV of 2.5. There was no other suspicious uptake. Brain MRI 11/04/2019 revealed no brain metastases. Patient underwent SBRT for local hilar recurrence versus new primary right lower lobe lung cancer. Was completed 2019. Patient had a surveillance CT of the chest on 01/06/2021. That study showed extensive postsurgical change and scarring from right upper lobectomy. There was paramedian fibrosis and bronchiectasis on the right which was noted previously. There was a right subcentimeter mid lung field nodule which was unchanged. No new nodules were observed. No enlarged lymph nodes were observed. There was marked deformity of the right mainstem bronchus. Underwent bronchoscopy 05/18/2021. Airway examination of the left lung was normal. There was extrinsic compression observed in the bronchus intermedius. Lymph node sizing and sampling was performed. EBUS TB NA was performed at lymph node station 7. Rapid onsite evaluation preliminary cytology suggested malignancy and level 7 lymph node. Pathology: FINAL DIAGNOSIS A. BRONCHIAL, #22 EBUS TBNA STATION 7, FINE NEEDLE ASPIRATE (THINPREP, SMEARS AND CELL BLOCK) Positive for malignant cells. Adenocarcinoma. Previous therapy: 1) Abraxane, carboplatin and Keytruda. 2) Pembrolizumab. 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 Current therapy: 1) Taxotere. Presents for ongoing oncologic management. Interim history: He continues to tolerate Taxotere very well overall. He has been continued on prednisone 40 mg daily. No change in the character of his frequent cough. Typically it is worse when he tries to lie supine. Oftentimes he wakes up in the middle night with a bad paroxysm of coughing which takes him an hour to settle it down and then finally get back to sleep. He continues on a PPI that he takes at bedtime. He was seen by pulmonary medicine. He stopped his nebulizer and is now on Symbicort with an albuterol rescue inhaler. Not having any chest pain. Appetite is normal. He has stable mild lower extremity swelling/edema. 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 Slightly worse in the left. 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 PMH, medications and allergies as below personally reviewed by me today. Any changes documented in appropriate section. PHYSICAL EXAM: Vitals: Blood pressure 125/76, pulse 95, temperature 37 C (98.6 F), temperature source Temporal, weight 104.3 kg (230 lb), SpO2 97 %. Well-appearing and in no acute distress. EYES: Sclerae are anicteric bilaterally. Very mild palpebral conjunctival injection. No ulcerations in either eye of the conjunctiva. There is thickened secretions along the eyelids bilaterally. LYMPHATIC: There is no palpable cervical or supraclavicular adenopathy. RESPIRATORY: Coarse tubular sounds right lung. CARDIOVASCULAR: Rhythm is regular. ABDOMEN: The abdomen is nondistended. Extremities: No swelling or edema. SKIN: Slightly excoriated rash left upper arm and left upper chest. LABORATORY DATA: Component Latest Ref Rng & Units 10/08/2022 WBC 3.70 - 11.00 k/uL 9.69 RBC 4.20 - 6.00 m/uL 3.70 (L) Hemoglobin 13.0 - 17.0 g/dL 11.5 (L) Hematocrit 39.0 - 51.0 % 35.8 (L) MCV 80.0 - 100.0 fL 96.8 MCH 26.0 - 34.0 pg 31.1 MCHC 30.5 - 36.0 g/dL 32.1 RDW-CV 11.5 - 15.0 % 17.2 (H) Platelet Count 150 - 400 k/uL 217 MPV 9.0 - 12.7 fL 9.6 Neut% % 85.5 Abs Neut (ANC) 1.45 - 7.50 k/uL 8.28 (H) Lymph% % 5.3 Abs Lymph 1.00 - 4.00 k/uL 0.51 (L) [place]% % 7.7 Abs [place] <0.87 k/uL 0.75 Eosin% % 0.2 Abs Eosin <0.46 k/uL <0.03 Baso% % 0.1 Abs Baso <0.11 k/uL <0.03 Immature Gran % % 1.2 IMMATURE GRANS (ABS) <0.10 k/uL 0.12 (H) NRBC /100 WBC 0.0 Absolute nRBC <0.01 k/uL <0.01 DTYPE Auto Protein, Total 6.3 - 8.0 g/dL 5.9 (L) Albumin 3.9 - 4.9 g/dL 3.6 (L) Calcium 8.5 - 10.2 mg/dL 8.8 Bilirubin, Total 0.2 - 1.3 mg/dL 0.5 Alkaline Phosphatase 38 - 113 U/L 60 AST 14 - 40 U/L 18 ALT 10 - 54 U/L 22 Glucose 74 - 99 mg/dL 82 BUN 9 - 24 mg/dL 39 (H) Creatinine 0.73 - 1.22 mg/dL 1.66 (H) Sodium 136 - 144 mmol/L 138 Potassium 3.7 - 5.1 mmol/L 3.9 Chloride 97 - 105 mmol/L 101 CO2 22 - 30 mmol/L 28 Anion Gap 9 - 18 mmol/L 9 eGFR >=60 mL/min/1.73m 42 (L) ASSESSMENT/PLAN: (C34.11) 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) (primary encounter diagnosis) Assessment: -pT3 N0 MX (greater than 7 cm adenocarcinoma) stage 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 -Patient received SBRT for local recurrence of disease. -Recent PET scan in conjunction with biopsy of subcarinal lymph node demonstrate recurrent disease. -PDL-1 1%. -ALK rearrangement not detected. -BRAF - A sequence change: [id number] [[id number] ([id number])]. Not V600E mutation. -EGFR -No variant detected. -HER2 (ERBB2) - No variant detected. -KRAS - No variant detected. -MET - No variant detected. -PET scan indicates response. Reviewed images. Particularly as evidenced by the right medial lower lobe metastatic deposit. -Continues to tolerate single agent docetaxel very well. -His cough continues and not responding to prednisone 40 mg daily. Unlikely therefore to be a large component of pneumonitis. He may be having reflux with aspiration since cough is particularly exacerbated when lying down. Also could be anatomic position of airways and previous anatomic changes from radiation. Discussed raising head of bed 4 inches. Plan: -Continue cycle #5 of Taxotere beginning tomorrow. -CBC and chemistry panel every cycle. -PET scan prior to cycle #5. -Decrease prednisone to 20 mg daily. -Raise head of bed 4 inches. -Continue pantoprazole but take earlier in the evening like around 6 or 7 PM. -Continue Symbicort on schedule and albuterol as needed. -Continue Mucinex. -Repeat imaging after 2 further cycles. -Continue follow-up with pulmonary medicine. Portions of this documentation were copied and pasted from previous office visit notes in order to provide a cohesive continuity of the history. The note has been reviewed and edited and updated as necessary. I spent a total of 40 minutes on the date of the service which included preparing to see the patient, [id number] patient care, completing clinical documentation, obtaining and/or reviewing separately obtained history, performing a medically appropriate examination, counseling and educating the patient/family/caregiver, ordering medications, tests, or procedures, independently interpreting results (not separately reported), and communicating results to the patient/family/caregiver. Dave Noble DO documented in this encounter [facility] 10-04-2022 Miscellaneous Notes Called patient for an update. Patient stated he is still coughing quite a bit. Per patient, the cough is worse when lying down which is also when the wheezing starts. Patient stated breathing in cold air or drinking cold fluids also exacerbates the cough. Patient stated he got up at 2:30 am today because when he is sitting up or standing the cough is less frequent. Patient stated it feels like he has phlegm that is stuck in his lungs and he can't cough it up. Patient is taking extra strength mucinex BID. Sinus drainage has improved, denies fever/chills. Patient stated the SOB is still there and the same . Patient is SOB with exertion and going up and down steps. Patient stated at rest he has no SOB. Patient stated he started PT yesterday, ordered by Dr. Chandler which they started working on leg strength and breathing. Patient is using his albuterol in the AM, symbicort before lunch and after dinner. Patient is still on prednisone 40 mg daily. PET scan results still pending. Nohelia Contreras RN Called patient and left a detailed message with Dr. Noble's instructions. Nohelia Contreras RN I would suggest using Mucinex 600 mg every 12 hours continuously. He is scheduled for PET scan next week. Continue prednisone 40 mg daily for now. Dave Noble DO Spoke to patient. Patient stated his SOB and cough are about the same . Patient is SOB with exertion, going up and down steps. Patient stated he has a raspy cough with dark green mucous that is very difficult to cough up. Patient feels he has more mucous in his lungs than before, patient denies wheezing. Patient stated 2 weeks ago he felt ill, was nauseous over the weekend. Patient stated he was taking Zofran and Protonix without relief but that has now subsided. Patient denies fever, chills or other respiratory illnesses since then. Patient is still taking prednisone 40 mg daily, Symbicort 2 puffs BID, and albuterol once a week. Patient aware this nurse will give Dr. Noble an update and our office will call back with further instructions. Nohelia Contreras RN Called patient, no answer, left a VM requesting a call back. Nohelia Contreras RN documented in this encounter [facility] 10-02-2022 Note HNO ID: [id number] Author: RT Flory(R) Service: Nuclear Medicine Author Type: Technologist Type: Progress Notes Filed: 10/02/2022 8:52 AM Note Text: RADIOLOGY SERVICE PROGRESS NOTE SERVICE DATE: 10/02/2022 SERVICE TIME: 8:51 AM PATIENT IDENTITY VERIFICATION COMPLETED USING TWO (2) STANDARD IDENTIFIERS: Name and Date of confirmed by patient verbally FALL SCREENING: Has the patient had 2 falls in the last year or 1 fall with injury or currently using an Ambulatory Assistive Device (Walker, Cane, Wheelchair, Crutches, etc.)? No PATIENT GENDER DATA: .male : No ALLERGIES: Reviewed and unchanged MEDICATIONS REVIEWED: No PATIENT RELEVANT IMPLANT DATA REVIEWED: Not Applicable CREATININE: Creatinine Date Value Ref Range Status 09/25/2022 1.92 (H) 0.73 - 1.22 mg/dL Final 09/10/2022 1.62 (H) 0.73 - 1.22 mg/dL Final 08/21/2022 1.85 (H) 0.73 - 1.22 mg/dL Final Estimated Glomerular Filtration Rate Date Value Ref Range Status 09/25/2022 36 (L) >=60 mL/min/1.73m? Final Comment: Estimated Glomerular Filtration Rate (eGFR) is calculated using the 2020 CKD-EPI creatinine equation. This equation utilizes serum creatinine, sex, and age as parameters. The creatinine assay has traceable calibration to isotope dilution-mass spectrometry. Refer to KDIGO guidelines for clinical interpretation. In patients with unstable renal function, e.g. those with acute kidney injury, the eGFR may not accurately reflect actual GFR. eGFR- Date Value Ref Range Status 09/15/2021 47 Final P.O.C.T. RESULTS: N/A October 02, [address] PERFORMED: No IV SITE: Ambulatory: NM only - direct IV injection in the Right antecubital site POST EXAM PIV STATUS: Discontinued PROCEDURE TYPE: NM INJECT: PET/CT BODY SCAN. 17.1 mCi F18 FDG. No other medications given.. ADMINISTRATION TIME: 843 PATIENT DISCHARGED TO: Ambulatory patient, left [place] department area. A Diagnostic radioactive procedure has taken place, with no further precautions necessary other than routine body substance precautions. More information regarding radiation safety can be found using this link: [email or web address] SIGNATURE: RT Flory(R) PATIENT NAME: Checo Johnson DATE: October 02, 2022 TIME: 8:51 AM PAGER/CONTACT #: [facility] 09-17-2022 History of Present illness Narrative Patient: Checo Johnson PCP: David Chandler MD CC: cough, SOB HPI: Checo Johnson 76 year old male former smoker, 30 pack years (quitting 1996) with PMH significant for multiple cancers including renal cell, bladder and lung cancer. Lung cancer history: diagnosed with RUL adenocarcinoma 2017 s/p lobectomy. Recurrence in right hilum in 2019 s/p SBRT, abraxane,/carboplatin/Keytruda. Imaging in spring pertinent for progressive GCO. Patient with persistent cough. S/p bronchoscopy with TBBX showed no evidence of cancer recurrence, only inflammation, negative cultures. Treated for possible check point inhibitor toxicity with steroids. Cough improved with steroids but recurred with taper. Most recent PET scan showed an enlarging RLL nodule consistent with progression of diease and RLL infiltrate more consolidative with uptake on PET consistent with inflammation. Currently on 40 mg a day secondary to CT chest 08/2022 with increased GCO and persistent cough. PET scan scheduled for 10/02/2022. Today, patient reports he stopped budesonide secondary to it made my cough worse . Using Symbicort twice daily and albuterol as needed. Requires albuterol every couple of days. Also stopped Flonase nasal spray. Patient was having epistaxis. Daily cough which is worse with laying down. Gets up frequently during the night due to coughing. Mostly non-productive. No hemoptysis. No fevers, chills or night sweats. Frequent wheezing. No dyspnea at rest. Exertional dyspnea with minimal effort. Difficulty walking from parking lot to office, climbing stairs. No issues with ADLs. Does not wear CPAP. Has tried multiple different masks. He is looking into Inspire. Lower extremity edema since increasing prednisone. PAST MEDICAL HISTORY Diagnosis Date Bladder cancer (HCC) Chronic kidney disease COPD (chronic obstructive pulmonary disease) (HCC) Gout Hypercholesterolemia Hypogonadism in male Lung cancer (HCC) Radiation pneumonitis (HCC) Renal cancer (HCC) Shingles 2021 Skin cancer Sleep apnea Allergies: No Known Allergies nystatin (MYCOSTATIN) 100,000 unit/mL suspension SWISH AND SWALLOW 5 MILLILITERS BY MOUTH FOUR TIMES A DAY [id number] (BMX 1:1:1) 1:1:1 liqd Take 10 mL by mouth every 4 hours as needed. swish and spit. cyanocobalamin, vitamin B-12, (VITAMIN B-12 INJECTION) One injection twice monthly. predniSONE (DELTASONE) 20 mg tablet Take 2 tablets by mouth once daily. budesonide (PULMICORT) 0.5 mg/2 mL nebulizer solution Use 2 mL via nebulizer once daily. INHALE 2 ML BY NEBULIZER OVER 5-15 MINUTES EVERY 12 HOURS. albuterol HFA (PROVENTIL HFA, VENTOLIN HFA) 90 mcg/actuation inhaler Inhale 2 Puffs as instructed every 4 hours as needed. budesonide-formoterol (SYMBICORT) 160-4.5 mcg/actuation inhaler Inhale 2 Puffs as instructed twice daily. Ciclopirox (LOPROX) 8 % solution APPLY TOPICALLY TO TOENAIL ONCE A DAY. CLEANSE TOENAILS ONCE A WEEK WITH RUBBING ALCOHOL pantoprazole DR (PROTONIX) 40 mg tablet Take 40 mg by mouth once daily. guaifenesin (MUCINEX ORAL) Take 2 tablets by mouth once daily. As needed loratadine (CLARITIN) 10 mg tablet Take 10 mg by mouth once daily. ondansetron (ZOFRAN) 8 mg tablet Take 1 tablet by mouth every 8 hours as needed for nausea/vomiting. fluticasone propionate (FLONASE NASAL) Use 2 Sprays in the nose once daily. doxepin capsule 25 mg Take 25 mg by mouth daily at bedtime. acetaminophen (TYLENOL EXTRA STRENGTH) 500 mg tablet Take 500 mg by mouth as needed. febuxostat (ULORIC) 40 mg tab Take 40 mg by mouth once daily. testosterone cypionate (DEPO-TESTOSTERONE) 100 mg/mL injection One IM injection twice monthly. pramipexole (MIRAPEX) 0.5 mg tablet Take two tablets by mouth twice daily. Social History Tobacco Use Smoking status: Former Packs/day: 1.00 Years: 30.00 Pack years: 30.00 Types: Cigarettes Quit date: 09/24/1996 Years since quittin.9 Smokeless tobacco: Never Vaping Use Vaping Use: Never used Substance Use Topics Alcohol use: Yes Alcohol/week: 4.0 standard drinks Types: 4 Glasses of Wine (5oz) per week Comment: occassionally/ social Drug use: No Family History Problem Relation Age of Onset Hypertension Mother other (Lung Cancer) Father other (Parkinson's Disease) Sister other (Bone Cancer) Brother other (Lung Cancer) Brother Diabetes Brother other (Melanoma) Brother other (Hepatitis C) Brother Breast Cancer Sister other (Lung Cancer) Sister other (Parkinson's Disease) Sister Cancer Sister Brain Cancer, lung cancer PAST SURGICAL HISTORY Procedure Laterality Date APPENDECTOMY PAST SURGICAL HISTORY OF 2018 Back surgery PAST SURGICAL HISTORY OF 2009 Bladder surgery PAST SURGICAL HISTORY OF 2014 Skin cancer removed from head PAST SURGICAL HISTORY OF Right 2017 Right upper lobectomy PAST SURGICAL HISTORY OF Right 07/2019 Cataract surgery PAST SURGICAL HISTORY OF Left 08/2019 Cataract Surgery PAST SURGICAL HISTORY OF 08/2019 nasal surgery REMOVAL OF KIDNEY Right 2004 TONSILLECTOMY HX 1997 I reviewed the past medical history, family history, social history and surgical history with changes noted above and updated in EMR. IMMUNIZATIONS Prevnar - xx Pneumovax - 05/05/2010 Influenza - xx COVID-19 - 11/16/2021, 05/24/2021, 10/31/2020, 10/03/2020 ROS: General: No fever or chills. Appetite good. Fatigued. Eyes, Ears, nose, throat: Post nasal drip, rhinorrhea. Frequent epistaxis. Hoarseness, chronic. Unable to taste. Vision stable. Cardiac: No angina, orthopnea. Resp: See HPI. GI: No heartburn, dysphagia. Musculoskeletal: No pain. Neuro: No headache, focal weakness, tremor. Skin: No rash. Otherwise negative. PHYSICAL EXAMINATION: BP 124/82 Pulse 89 Resp 17 Wt 105.7 kg (233 lb) SpO2 100% BMI 29.92 kg/m Gen: No acute distress. Cooperative with examination. HEENT: Normocephalic. Sclera, conjunctiva clear. Oral hygeine and dentition good. Resp: No stridor, accessory respiratory muscle use, supra-sternal or intercostal retractions. No wheezes, crackles. CV: Regular rythm. Heart tones normal. Radial pulses normal. Abd: Non distended. MSK: No kyphoscoliosis. Ext: Warm and well perfused. No clubbing, cyanosis. Trace bilateral edema. Skin: No rash, ecchymoses. Neuro: Mental status normal. Affect normal. No tremor. DATA: PFT, 05/31/2022 IMPRESSION: Spirometry shows a reduced FEV1/FVC ratio; but individually normal FVC and FEV1 predicted values.This pattern indicates mild obstruction or a normal variant. There was not a significant bronchodilator response. The TLC, RV and RV/TLC are normal. Electronically Signed On 05-31-2022 14:15:41 EDT by Margarita Collins M.D. CT chest, 08/09/2022 IMPRESSION: 1. Decreased size of nodules in the medial right lower lobe and lateral left lower lobe. Decreased density of a nodule in the anterior left upper lobe. 2. Increased density of a consolidation with adjacent groundglass opacities in the superior segment of the right lower lobe likely related to treatment 3. Decreased size of prominent paratracheal lymph nodes CT chest, 05/21/2022 IMPRESSION: 1. Increased size of pulmonary nodules 2. Stable appearance of mildly enlarged paratracheal lymph nodes 3. Slight increase in density of a consolidation with adjacent groundglass opacities in the superior segment of the right lower lobe which is most likely infectious/inflammatory and may be related to treatment 4. Resolution of previously described groundglass opacities in bilateral lower lobes PET, 03/06/2022 IMPRESSION: 1. NECK: * No FDG avid neoplastic process.. 2. CHEST: * Progressed mildly FDG avid confluent right perihilar and apical right lower lobe as detailed, favoring posttreatment/inflammatory changes secondary to radiation. Previous focal hypermetabolic foci in the right perihilar region on 05/02/2021 PET/CT are no longer present. * A 1.1 cm medial right lower lobe pulmonary nodule without focal hypermetabolism is stable from recent prior but slowly enlarging over several examinations and remains suspicious for neoplasm. * Additional stable smaller pulmonary nodules below the resolution of PET. * Scattered clustered groundglass opacities predominantly in the left lower lobe are improved but not resolved and likely infectious/inflammatory. * No hypermetabolic thoracic lymph nodes. Stable mildly enlarged mediastinal nodes with low level FDG activity. 3. ABDOMEN/PELVIS: * No FDG avid neoplastic process. Status post right nephrectomy without local recurrence. 4. EXTREMITIES/SKELETON: * No FDG avid neoplastic process. ASSESSMENT/PLAN: 1. 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 Provided an Aerochamber and instructed on use. Rinse mouth after each use to help prevent oral thrush. Patient not tolerant of budesonide at this time. Albuterol HFA inhaler, 2 inhalations 10-15 minutes prior to activities associated with shortness of breath, and as needed for rescue relief of shortness of breath or wheezing, up to 4 times daily. PET scan scheduled 2. SOB (shortness of breath) - ICD9: 786.05, ICD10: R06.02 Suspect radiation pneumonitis/fibrosis compounded by inadequate treatment for LUIS CARLOS Mild obstruction on PFTs. Continue maintenance Symbicort and as needed albuterol. Patient is considering Inspire device. 3. 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) - ICD9: 162.3, ICD10: C34.[address] Noble PET scan pending 4. 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) - ICD9: 496, ICD10: J44.9 See #1. Ellie Sherman PA-C documented in this encounter [facility] 09-03-2022 Miscellaneous Notes Patient informed of Dr. Noble's response, stated understanding. Nohelia Contreras RN Agree with trial of nystatin swish and swallow. I also sent a prescription for BMX for swish and spit for symptomatic relief. Dave Noble DO Patient stated he has a big bump on the middle of my tongue, its puffy that started over the weekend. Patient stated he looked at his tongue and it looks a little white . Patient stated he is having a hard time eating and drinking d/t sore tongue and throat. Patient denies sores on his gums, also denies, N/V, fever, or chills. Patient used the salt water rinses yesterday without relief. Patient had a small dose of nystatin left from when he had thrush and used that this morning and he said his tongue felt better afterwards. Encouraged patient to continue using salt water rinses, will discuss nystatin with Dr. Noble. Patient aware this nurse will discuss symptoms with Dr. Noble and will call back with further instructions. Patient uses [facility] in [place]. Nohelia Contreras RN documented in this encounter [facility] 09-03-2022 Miscellaneous Notes Discussed in a separate phone encounter. Nohelia Contreras RN documented in this encounter [facility] 08-14-2022 History of Present illness Narrative Assessment unchanged from 08/13/[address] noble documented in this encounter [facility] 08-13-2022 History of Present illness Narrative Diagnosis: 1) NSCLC. HPI: The patient is a 76 yo male with PMH significant for RCC (right nephrectomy at [facility] 2003; followed up with Dr. Hernandez), superficial bladder cancer, LUIS CARLOS (underwent uvulopalatopharyngoplasty by Dr. Aguilera), COPD and gout. He had been under the care of [...] an SUV of 2 for that lesion. Patient underwent a CT chest on 05/07/2016. The inhomogeneous soft tissue density in the posterior medial segment of the right upper lobe was not noted to change in size and measured 3.6 x 3.8 x 4.8 cm. Patient was referred to a thoracic surgeon at [facility]. He ultimately underwent a right thoracotomy with right upper lobe wedge resection and immediate right upper lobectomy along with mediastinal lymphadenectomy on 08/14/2016. The final pathology demonstrated within the wedge [...] sections. Final pathologic staging was pT3 N0. Previous therapy: 1) Adjuvant carbo/paclitaxel completed 01/2017. He had a surveillance CT of the chest in June 2018 which showed stable 4 mm nodules in the right lung. A subsequent surveillance CT chest December 2018 revealed stable findings. However in June 2019 CT scan showed mild enlargement of soft tissue density in the right hilum/suprahilar region. This was thought to potentially represent recurrent disease. It measured 2.4 x 1.3 cm versus 1.4 x 1.[address] was obtained on 07/07/2019 and it demonstrated only slight FDG avidity corresponding to the right hilar/suprahilar enlarging soft tissue density with a max SUV of 3.0. A follow-up CT chest in October 2019 revealed interval increase in size of the soft tissue mass/density posterior to the right mainstem bronchus measuring 2.3 x 1.7 cm. Previously it was noted to be 2.1 x 1.2 cm. There was no CT evidence of progressive adenopathy. Patient underwent a bronchoscopy in October 2019. He was noted to have slight inward bulging of the posterior wall of the right middle lobe bronchus and bronchus intermedius without any compromise to luminal patency. This corresponded to the site of the right lower lobe lesion on imaging. Bronchial mucosa and anatomy were otherwise normal. There were no endobronchial lesions and no secretions. He underwent EBUS and TB NA of the right lower lobe lung nodule and cytology was positive for malignant cells. Pathology demonstrated non-small cell carcinoma favoring adenocarcinoma. Molecular telephone directory distributor driver mutations were all negative. Repeat PET/CT 11/17/2019 revealed mild uptake in the right lung nodule with a max SUV of 2.5. There was no other suspicious uptake. Brain MRI 11/04/2019 revealed no brain metastases. Patient underwent SBRT for local hilar recurrence versus new primary right lower lobe lung cancer. Was completed 2019. Patient had a surveillance CT of the chest on 01/06/2021. That study showed extensive postsurgical change and scarring from right upper lobectomy. There was paramedian fibrosis and bronchiectasis on the right which was noted previously. There was a right subcentimeter mid lung field nodule which was unchanged. No new nodules were observed. No enlarged lymph nodes were observed. There was marked deformity of the right mainstem bronchus. Underwent bronchoscopy 05/18/2021. Airway examination of the left lung was normal. There was extrinsic compression observed in the bronchus intermedius. Lymph node sizing and sampling was performed. EBUS TB NA was performed at lymph node station 7. Rapid onsite evaluation preliminary cytology suggested malignancy and level 7 lymph node. Pathology: FINAL DIAGNOSIS A. BRONCHIAL, #22 EBUS TBNA STATION 7, FINE NEEDLE ASPIRATE (THINPREP, SMEARS AND CELL BLOCK) Positive for malignant cells. Adenocarcinoma. Previous therapy: 1) Abraxane, carboplatin and Keytruda. 2) Pembrolizumab. 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 Current therapy: 1) Taxotere. Presents for ongoing oncologic management. Interim history: He has tolerated the first 2 cycles of Taxotere symptomatically very well with the exception of occasional nausea. It is relieved with Zofran. In the last week to 2 weeks has noticed an increase in cough. Particularly if he lies more supine he feels as if something shifts in the right lung exacerbating the cough. He has not had fever. He has been slightly more short of breath. Cough is typically nonproductive. He has noticed occasional wheeze as well. Also, this weekend he noticed irritated eyes bilaterally. No change in vision. Wakes up with the eyes matted shut. He used moisturizing eyedrops which helped some of the matting. No pus or discharge that he noticed. Appetite is normal. He has stable mild lower extremity swelling/edema. Symptoms of neuropathy of the hands stable. Slightly worse in the left. 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 PMH, medications and allergies as below personally reviewed by me today. Any changes documented in appropriate section. PHYSICAL EXAM: Vitals: Blood pressure 112/76, pulse 88, temperature 36.2 C (97.2 F), temperature source Temporal, weight 103 kg (227 lb), SpO2 100 %. Well-appearing and in no acute distress. EYES: Sclerae are anicteric bilaterally. Very mild palpebral conjunctival injection. No ulcerations in either eye of the conjunctiva. There is thickened secretions along the eyelids bilaterally. LYMPHATIC: There is no palpable cervical or supraclavicular adenopathy. RESPIRATORY: Good air entry all allison with the exception of decreased and more tubular breath sounds in the right upper lung field. No wheeze or rhonchi appreciated. CARDIOVASCULAR: Rhythm is regular. ABDOMEN: The abdomen is nondistended. Extremities: No swelling or edema. SKIN: Slightly excoriated rash left upper arm and left upper chest. 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 -Patient received SBRT for local recurrence of disease. -Recent PET scan in conjunction with biopsy of subcarinal lymph node demonstrate recurrent disease. -PDL-1 1%. -ALK rearrangement not detected. -BRAF - A sequence change: [id number] [[id number] (p.[id number])]. Not V600E mutation. -EGFR -No variant detected. -HER2 (ERBB2) - No variant detected. -KRAS - No variant detected. -MET - No variant detected. -Continues to tolerate single agent docetaxel very well. Auscultatory exam of lungs improved. Cough markedly improved. -Personally reviewed CT images and results of CT in detail. Overall responding disease. Potential increase in previous radiation/immunotherapy pneumonitis with possible secondary bronchial/pneumonia infection. Plan: -Continue cycle #3 of Taxotere beginning tomorrow. -CBC and chemistry panel every cycle. -CT scan chest without IV contrast prior to cycle #5. -Continue budesonide via nebulizer. -Prednisone 40 mg daily x2 weeks then 20 mg daily x2 weeks then 10 mg daily x2 weeks. -Rx doxycycline twice daily x10 days. -Neomycin/polymyxin/dexamethasone eyedrops bilaterally x7 days. -Continue follow-up with pulmonary medicine. Portions of this documentation were copied and pasted from previous office visit notes in order to provide a cohesive continuity of the history. The note has been reviewed and edited and updated as necessary. I spent 30 minutes in the visit, with more than 50% of the total [id number] time of the visit in reviewing test results, plan of care and coordination of care Dave Noble DO documented in this encounter [facility] 08-09-2022 History of Present illness Narrative Radiology Service Progress Note PATIENT NAME: Checo Johnson DATE OF SERVICE: August 09, 2022 TIME: 10:31 AM PATIENT IDENTITY VERIFICATION COMPLETED USING TWO (2) IDENTIFIERS: Name and Date of confirmed by patient verbally. FALL SCREENING: Has the patient had 2 falls in the last year or 1 fall with injury or currently using an Ambulatory Assistive Device (Walker, Cane, Wheelchair, Crutches, etc.)? No PATIENT GENDER DATA: Male PATIENT RELEVANT IMPLANT DATA REVIEWED: Yes RADIOLOGY DEPARTMENT: CT; Exam(s) Completed: Chest PERIPHERAL IV DATA: Not applicable SIGNED BY: RT Guerrero(R) August 09, 2022 10:31 AM documented in this encounter [facility] 07-31-2022 Miscellaneous Notes Pt informed of below. Verbalized understanding. Dara Liu RN Agree. Continue observe. If his rash broke out, call for further evaluation. Jazmine Mitchell MD Pt in today for Taxotere tx. Pt noted a few weeks ago a rash to chest. Pruritis noted. Pt has not informed Dr. Noble of this. Encouraged mild soaps. Please review and advise. Dara Liu RN documented in this encounter [facility] 07-16-2022 History of Present illness Narrative Diagnosis: 1) NSCLC. HPI: The patient is a 76 yo male with PMH significant for RCC (right nephrectomy at [facility] 2003; followed up with Dr. Hernandez), superficial bladder cancer, LUIS CARLOS (underwent uvulopalatopharyngoplasty by Dr. Aguilera), COPD and gout. He had been under the care of [...] an SUV of 2 for that lesion. Patient underwent a CT chest on 05/07/2016. The inhomogeneous soft tissue density in the posterior medial segment of the right upper lobe was not noted to change in size and measured 3.6 x 3.8 x 4.8 cm. Patient was referred to a thoracic surgeon at [facility]. He ultimately underwent a right thoracotomy with right upper lobe wedge resection and immediate right upper lobectomy along with mediastinal lymphadenectomy on 08/14/2016. The final pathology demonstrated within the wedge [...] sections. Final pathologic staging was pT3 N0. Previous therapy: 1) Adjuvant carbo/paclitaxel completed 01/2017. He had a surveillance CT of the chest in June 2018 which showed stable 4 mm nodules in the right lung. A subsequent surveillance CT chest December 2018 revealed stable findings. However in June 2019 CT scan showed mild enlargement of soft tissue density in the right hilum/suprahilar region. This was thought to potentially represent recurrent disease. It measured 2.4 x 1.3 cm versus 1.4 x 1.[address] was obtained on 07/07/2019 and it demonstrated only slight FDG avidity corresponding to the right hilar/suprahilar enlarging soft tissue density with a max SUV of 3.0. A follow-up CT chest in October 2019 revealed interval increase in size of the soft tissue mass/density posterior to the right mainstem bronchus measuring 2.3 x 1.7 cm. Previously it was noted to be 2.1 x 1.2 cm. There was no CT evidence of progressive adenopathy. Patient underwent a bronchoscopy in October 2019. He was noted to have slight inward bulging of the posterior wall of the right middle lobe bronchus and bronchus intermedius without any compromise to luminal patency. This corresponded to the site of the right lower lobe lesion on imaging. Bronchial mucosa and anatomy were otherwise normal. There were no endobronchial lesions and no secretions. He underwent EBUS and TB NA of the right lower lobe lung nodule and cytology was positive for malignant cells. Pathology demonstrated non-small cell carcinoma favoring adenocarcinoma. Molecular telephone directory distributor driver mutations were all negative. Repeat PET/CT 11/17/2019 revealed mild uptake in the right lung nodule with a max SUV of 2.5. There was no other suspicious uptake. Brain MRI 11/04/2019 revealed no brain metastases. Patient underwent SBRT for local hilar recurrence versus new primary right lower lobe lung cancer. Was completed 2019. Patient had a surveillance CT of the chest on 01/06/2021. That study showed extensive postsurgical change and scarring from right upper lobectomy. There was paramedian fibrosis and bronchiectasis on the right which was noted previously. There was a right subcentimeter mid lung field nodule which was unchanged. No new nodules were observed. No enlarged lymph nodes were observed. There was marked deformity of the right mainstem bronchus. Underwent bronchoscopy 05/18/2021. Airway examination of the left lung was normal. There was extrinsic compression observed in the bronchus intermedius. Lymph node sizing and sampling was performed. EBUS TB NA was performed at lymph node station 7. Rapid onsite evaluation preliminary cytology suggested malignancy and level 7 lymph node. Pathology: FINAL DIAGNOSIS A. BRONCHIAL, #22 EBUS TBNA STATION 7, FINE NEEDLE ASPIRATE (THINPREP, SMEARS AND CELL BLOCK) Positive for malignant cells. Adenocarcinoma. Previous therapy: 1) Abraxane, carboplatin and Keytruda. Current therapy: 1) Pembrolizumab. On hold due to potential immunotherapy pneumonitis. Presents for ongoing oncologic management. Interim history: Cough improved after starting budesonide via nebulizer. Cough continues to improve. Occasionally at night and in the morning now. Some sputum production but no hemoptysis. He is not wheezing as much. Stable dyspnea with exertion. Denies chest pain and palpitations. Appetite is normal. He has stable mild lower extremity swelling/edema. Symptoms of neuropathy of the hands stable. Slightly worse in the left. 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 He notices some more fatigue after receiving Taxotere with no other noticeable side effect. His blood pressure is low today but he is having no symptoms of imbalance or orthostasis. PMH, medications and allergies as below personally reviewed by me today. Any changes documented in appropriate section. PHYSICAL EXAM: Vitals: Blood pressure 97/69, pulse 90, temperature 36.1 C (97 F), temperature source Temporal, weight 103.2 kg (227 lb 8 oz), SpO2 100 %. Well-appearing and in no acute distress. EYES: Sclerae are anicteric bilaterally. LYMPHATIC: There is no palpable cervical or supraclavicular adenopathy. RESPIRATORY: Good air entry all allison with the exception of decreased tubular breath sounds in the right upper lung field. No wheeze or rhonchi appreciated. CARDIOVASCULAR: Rhythm is regular. ABDOMEN: The abdomen is nondistended. Extremities: No swelling or edema. SKIN: Slightly excoriated rash left upper arm and left upper chest. 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 -Patient received SBRT for local recurrence of disease. -Recent PET scan in conjunction with biopsy of subcarinal lymph node demonstrate recurrent disease. -PDL-1 1%. -ALK rearrangement not detected. -BRAF - A sequence change: [id number] [[id number] ([id number])]. Not V600E mutation. -EGFR -No variant detected. -HER2 (ERBB2) - No variant detected. -KRAS - No variant detected. -MET - No variant detected. -He is now tolerating single agent docetaxel very well. Auscultatory exam of lungs improved. Cough markedly improved. -He stopped testosterone injections. This was more secondary to not wanting to make extra trips to a physician's office. Discussed that he may notice a decline in energy and overall motivation if testosterone wanes. Plan: -Continue cycle #2 of Taxotere beginning tomorrow. -CBC and chemistry panel every cycle. -CT scan chest without IV contrast prior to cycle #3. -Continue budesonide via nebulizer. -Continue follow-up with pulmonary medicine. Portions of this documentation were copied and pasted from previous office visit notes in order to provide a cohesive continuity of the history. The note has been reviewed and edited and updated as necessary. I spent 25 minutes in the visit, with more than 50% of the total [id number]-pi-[id number] time of the visit in reviewing test results, plan of care and coordination of care Dave Noble DO documented in this encounter [facility] 07-03-2022 History of Present illness Narrative documented in this encounter [facility] 06-20-2022 Miscellaneous Notes CYCLE 1/DAY 1 POST TREATMENT CALL Today's date: June 20, 2022 Treatment Regimen: docetaxel C1D1 Date: 06/19/2022 Called patient to follow-up on symptom management. Spoke with patient SYMPTOM ASSESSMENT Neuro: None CV/Resp: None GI/: None Integument: None Activity: Patient reported no changes in energy level, energy level good Pain: No=0 (pain 0 on a scale of 0-10). Fever: No Chills: No Patient has no symptom concerns today. Any new referrals needed? No Reinforced CURRENT treatment education based on current and anticipated symptoms. Discussed port/line care and patient verbalizes understanding: Not Applicable Patient instructed to contact office or after hours Hematology/Oncology fellow for: temperature ? 100.4; questions or concerns. Patient verbalized understanding of when to seek medical attention and after hours number protocol. Nohelia Contreras RN documented in this encounter [facility] 06-07-2022 Miscellaneous Notes will B12 be part if his current tx? Laura Hwang LPN documented in this encounter [facility] 06-04-2022 History of Present illness Narrative Summary: 12 Month Fiollow Up Study title: DNA Evaluation of Fragments for Early Interception - Lung Cancer Training Study (MARISABEL-L101 Study) PI: Derian Sloan MD, Coordinator completed 12-month medical record review. No contact with patient was necessary. No major changes in cancer status from time of patients initial enrollment. Yovani Spear Research Coordinator Underground Heavy Equipment Operator documented in this encounter [facility] 06-02-2022 Miscellaneous Notes Scheduled. Angie Brito PSS- patient also needs an OV scheduled prior to starting C2. Per AVS, OV/CBC/CMP for cycle #2. Please schedule so follow-up does not get forgotten. Thank you. Nohelia Contreras RN Images from the original note were not included. Completed taxotere chemo edu today. Patient stated he had labs recently at [facility]; patient asked that Dr. Noble be made aware of lab results. Patient requested that recent OV notes from Dr. Noble's OV be faxed to Dr. Briggs to review. This nurse will fax recent notes to Dr. Briggs. Nohelia Contreras RN documented in this encounter [facility] 05-31-2022 History of Present illness Narrative PULM FUNCTION SMARTBLOCK: Provider: Margarita Collins MD Assisting Tech: KAYLA Rae Spirometry w/BD: 1 LV - Box: 1 documented in this encounter [facility] 05-30-2022 History of Present illness Narrative PSYCHOSOCIAL ASSESSMENT Date of Service: May 30, 2022 Checo Johnson is a 76 year old male being seen for a follow-up social work assessment due to cancer metastasis. 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 How many? 2 care coordinator arrangements needed: No Siblings: 4 sisters and 3 brothers Grandchild(naila): > 5 Home Health Provider: No Community Services: No Libby Identified: Yes Caodaism/Spirituality: Yarsani Are these practices or beliefs that may affect or influence treatment? No EMPLOYMENT/FINANCIAL/HEALTH INSURANCE: Employment: Retired Income source: Social Security, Nursing Home Pension, and Supported financially by family Insurance: Medicare with co-insurance Prescription coverage: Yes Is the patient appropriate for referral to [facility] COBRA Assistance program? No Financial Distress: No [place]: No FOOD INSECURITY Within the past year, have you worried about how you would buy or obtain food? No LIVING ARRANGEMENTS: Type: House- independent ranch Resides with: , Lizette FUNCTIONAL STATUS: Cognitive limitations: none Physical limitations: none Language barrier: No Hearing Impaired: Yes high frequency hearing loss Speech Impaired: No Visual Impairments: Yes, glasses Special considerations/accommodations needed: No HEALTH LITERACY: Do you have difficulty understanding medical instructions or other written materials you receive from you doctor or pharmacy? No Do have difficulty filling out medical forms by yourself? No The following interventions were put into place: NA MEDICATION ADHERENCE: Within the past 2 weeks, have you had difficulty remembering to take your medicine? No Within the past 2 weeks, did you ever miss taking your medications for reasons other than forgetting? 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: Yes Scanned into EPIC: No Guardianship: NA Scanned into EPIC:NA Reasons Advanced Directives were not Addressed: NA COPING STATUS: Coping Strengths: supportive relationships with immediate family , extended family and with friends spirituality successful managing past crises hopefulness self advocate strong problem-solving skills ability to plan able to follow direction consistently over time able to communicate effectively uses physical exercise future oriented and able to identify goals meaningful leisure-time pursuits Current affect/mood: appropriate and hopeful History of Loss: Yes, parents Adjustment to diagnosis: reflecting understanding and responding appropriately BARRIERS/CARE CHALLENGES: None Are barriers/care challenges identified likely to have an impact on the patient's quality of life during treatment? NA INTERVENTIONS/REFERRALS TO BE PROVIDED: Monitor patient response to treatment Communicate pertinent medical/psychosocial information to Cancer Center team Provide emotional support to patient/family Continue follow up as needed Resources and Referrals: Internal: NA External: N/A CLINICAL IMPRESSION: Checo is a 76 year old male receiving treatment for cancer of trachea, bronchus, and lung and malignant neoplasm metastatic to both lungs. He reports he has been through treatment several other times and knows what to expect. He reports no concerns going into treatment. He reports his insurance covers 100% aside from $10 office visit co-pays. He presents as very hopeful for treatment and is eager to begin.SW re-oriented pt to SW role and discussed resources/available assistance. SW encouraged pt to reach out if any needs or concerns arise. Pt is agreeable. Psychosocial Risk Criteria If positive for one or more of the following risk criteria, follow up every 30 days Age: >70 Mental Health: NA Practical Needs: N/A PLAN: SW to follow pt at upcoming appointments and remain in contact with pt throughout treatment to address any psychosocial concerns if needed. Follow up appointment with SW in: LETICIA Rojas documented in this encounter [facility] 05-25-2022 Miscellaneous Notes Late entry for 05/24/22. Patient was given a folder with chemocare information, office contact information, thermometer, and additional chemotherapy resource information. Patient aware this nurse will review on scheduled appointment date. Nohelia Contreras RN documented in this encounter [facility] 05-24-2022 History of Present illness Narrative Diagnosis: 1) NSCLC. HPI: The patient is a 76 yo male with PMH significant for RCC (right nephrectomy at [facility] 2003; followed up with Dr. Hernandez), superficial bladder cancer, LUIS CARLOS (underwent uvulopalatopharyngoplasty by Dr. Aguilera), COPD and gout. He had been under the care of [...] an SUV of 2 for that lesion. Patient underwent a CT chest on 05/07/2016. The inhomogeneous soft tissue density in the posterior medial segment of the right upper lobe was not noted to change in size and measured 3.6 x 3.8 x 4.8 cm. Patient was referred to a thoracic surgeon at [facility]. He ultimately underwent a right thoracotomy with right upper lobe wedge resection and immediate right upper lobectomy along with mediastinal lymphadenectomy on 08/14/2016. The final pathology demonstrated within the wedge [...] sections. Final pathologic staging was pT3 N0. Previous therapy: 1) Adjuvant carbo/paclitaxel completed 01/2017. He had a surveillance CT of the chest in June 2018 which showed stable 4 mm nodules in the right lung. A subsequent surveillance CT chest December 2018 revealed stable findings. However in June 2019 CT scan showed mild enlargement of soft tissue density in the right hilum/suprahilar region. This was thought to potentially represent recurrent disease. It measured 2.4 x 1.3 cm versus 1.4 x 1.[address] was obtained on 07/07/2019 and it demonstrated only slight FDG avidity corresponding to the right hilar/suprahilar enlarging soft tissue density with a max SUV of 3.0. A follow-up CT chest in October 2019 revealed interval increase in size of the soft tissue mass/density posterior to the right mainstem bronchus measuring 2.3 x 1.7 cm. Previously it was noted to be 2.1 x 1.2 cm. There was no CT evidence of progressive adenopathy. Patient underwent a bronchoscopy in October 2019. He was noted to have slight inward bulging of the posterior wall of the right middle lobe bronchus and bronchus intermedius without any compromise to luminal patency. This corresponded to the site of the right lower lobe lesion on imaging. Bronchial mucosa and anatomy were otherwise normal. There were no endobronchial lesions and no secretions. He underwent EBUS and TB NA of the right lower lobe lung nodule and cytology was positive for malignant cells. Pathology demonstrated non-small cell carcinoma favoring adenocarcinoma. Molecular telephone directory distributor driver mutations were all negative. Repeat PET/CT 11/17/2019 revealed mild uptake in the right lung nodule with a max SUV of 2.5. There was no other suspicious uptake. Brain MRI 11/04/2019 revealed no brain metastases. Patient underwent SBRT for local hilar recurrence versus new primary right lower lobe lung cancer. Was completed 2019. Patient had a surveillance CT of the chest on 01/06/2021. That study showed extensive postsurgical change and scarring from right upper lobectomy. There was paramedian fibrosis and bronchiectasis on the right which was noted previously. There was a right subcentimeter mid lung field nodule which was unchanged. No new nodules were observed. No enlarged lymph nodes were observed. There was marked deformity of the right mainstem bronchus. Underwent bronchoscopy 05/18/2021. Airway examination of the left lung was normal. There was extrinsic compression observed in the bronchus intermedius. Lymph node sizing and sampling was performed. EBUS TB NA was performed at lymph node station 7. Rapid onsite evaluation preliminary cytology suggested malignancy and level 7 lymph node. Pathology: FINAL DIAGNOSIS A. BRONCHIAL, #22 EBUS TBNA STATION 7, FINE NEEDLE ASPIRATE (THINPREP, SMEARS AND CELL BLOCK) Positive for malignant cells. Adenocarcinoma. Previous therapy: 1) Abraxane, carboplatin and Keytruda. Current therapy: 1) Pembrolizumab. On hold due to potential immunotherapy pneumonitis. Presents for ongoing oncologic management. Interim history: Cough improved after starting budesonide via nebulizer. Was in [place] and able to golf without coughing. Developed itch, held budesonide for about 2 weeks now. Saw PCP and diagnosed with hives. Was given Medrol dose pack which he is going to start today. Stable BACA. Good appetite. PMH, medications and allergies as below personally reviewed by me today. Any changes documented in appropriate section. PHYSICAL EXAM: Vitals: Blood pressure 120/81, pulse 96, temperature 36.4 C (97.5 F), weight 102.5 kg (226 lb), SpO2 93 %. Well-appearing and in no acute distress. EYES: Sclerae are anicteric bilaterally. LYMPHATIC: There is no palpable cervical or supraclavicular adenopathy. RESPIRATORY: Good air entry all allison with the exception of tubular breath sounds in the right upper lung field. No wheeze or rhonchi appreciated. CARDIOVASCULAR: Rhythm is regular. ABDOMEN: The abdomen is nondistended. Extremities: No swelling or edema. SKIN: Slightly excoriated rash left upper arm and left upper chest. 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 -Patient received SBRT for local recurrence of disease. -Recent PET scan in conjunction with biopsy of subcarinal lymph node demonstrate recurrent disease. -PDL-1 1%. -ALK rearrangement not detected. -BRAF - A sequence change: [id number] [[id number] (p.[id number])]. Not V600E mutation. -EGFR -No variant detected. -HER2 (ERBB2) - No variant detected. -KRAS - No variant detected. -MET - No variant detected. -Reviewed the results of the CT scan in detail with him. At least for slowly enlarging lung nodules the most concerning of which is in the anterior lower portion of the left upper lobe. We discussed biopsy, but I did not recommend it since he has had biopsy-proven recurrence of his disease previously and the radiographic progression is convincing for metastatic non-small cell lung cancer. I recommended systemic therapy with single agent Taxotere. He understands the goal of therapy is potential improvement in progression free and overall survival. I discussed the rationale, logistics, potential risks (including but not limited to alopecia, cytopenias, neuropathy and infectious complications potentially leading to ), benefits and alternatives, as well as the personnel involved in the administration of docetaxel when given on a day 1, 8 and 15 schedule with cycles every 28 days. I answered his questions in detail and he verbalized understanding and agreed with the recommended therapy. Please see the electronic consent document for details of doses and schedule. -He is scheduled to have several left lower teeth extracted next week. So we will start treatment second week of June. Plan: -Begin Taxotere second week of June. -CBC with every treatment. And chemistry panel every cycle. -CT scan following 2 cycles. -Resume budesonide via nebulizer. -Continue follow-up with pulmonary medicine. Portions of this documentation were copied and pasted from previous office visit notes in order to provide a cohesive continuity of the history. The note has been reviewed and edited and updated as necessary. Dave Noble DO documented in this encounter [facility] 05-21-2022 History of Present illness Narrative Radiology Service Progress Note PATIENT NAME: Checo Johnson DATE OF SERVICE: May 21, 2022 TIME: 3:41 PM PATIENT IDENTITY VERIFICATION COMPLETED USING TWO (2) IDENTIFIERS: Name and Date of confirmed by patient verbally. FALL SCREENING: Has the patient had 2 falls in the last year or 1 fall with injury or currently using an Ambulatory Assistive Device (Walker, Cane, Wheelchair, Crutches, etc.)? No PATIENT GENDER DATA: Male PATIENT RELEVANT IMPLANT DATA REVIEWED: Yes RADIOLOGY DEPARTMENT: CT; Exam(s) Completed: Chest PERIPHERAL IV DATA: Not applicable SIGNED BY: RT Guerrero(R) May 21, 2022 3:41 PM documented in this encounter [facility] 04-10-2022 History of Present illness Narrative Images from the original note were not included. . Respiratory [place] Note Patient name: Checo Johnson PCP: David Chandler MD CC: cough, SOB HPI: Checo Johnson 76 year old male former smoker with PMH significant for multiple cancers including renal cell, bladder and lung cancer. Lung cancer history: diagnosed RUL adenocarcinoma 2016 s/p lobectomy. Recurrence in right hilum 2018 s/p SBRT, abraxane/carboplatin/Keytruda. Imaging in spring pertinent for progressive GGO. Patient plagued with severe cough. S/p bronchoscopy with TBBx showed no evidence of cancer recurrence, only inflammation, negative cultures. Treated for possible check point inhibitor toxicity with steroids. Cough improved with steroids but recurred with taper. Currently on 10 mg a day. Has been more SOB with less activity. Albuterol helps with cough. Has Symbicort but does not use regularly. Cough is non-productive. Not currently keeping him up at night. He denies wheezing. Most recent PET scan showed an enlarging RLL nodule consistent with progression of disease and RUL infiltrate more consolidative with uptake on PET consistent with inflammation. Dr. Noble reluctant to start chemo due to persistent pulmonary issues. Reevaluation per radiation oncology recommended repeat CT two months. RUL consolidation probably scarring from radiation versus evolving carcinoma which cannot be excluded. Previous GGO improved with steroids and holding Keytruda. He does not sleep well, having difficulty with his CPAP which has resulted in excessive daytime sleepiness. Inquiring about Inspire for LUIS CARLOS (will need to address with Sleep Medicine). DATA: Labs: Component Ref Range & Units 1 mo ago (02/14/22) Cortisol 4.8 - 19.5 ug/dL 4.2 Component Ref Range & Units 1 mo ago (02/14/22) WBC 3.70 - 11.00 k/uL 11.17 High RBC 4.20 - 6.00 m/uL 5.10 Hemoglobin 13.0 - 17.0 g/dL 15.1 Hematocrit 39.0 - 51.0 % 45.7 MCV 80.0 - 100.0 fL 89.6 MCH 26.0 - 34.0 pg 29.6 MCHC 30.5 - 36.0 g/dL 33.0 RDW-CV 11.5 - 15.0 % 15.4 High Platelet Count 150 - 400 k/uL 176 MPV 9.0 - 12.7 fL 10.3 NRBC /100 WBC 0.0 Absolute nRBC <0.01 k/uL <0.01 Neut% % 82.0 Abs Neut (Segs + Bands) 1.45 - 7.50 k/uL 9.16 High Lymph% % 11.0 Abs Lymph (Normal + Reactive) 1.00 - 4.00 k/uL 1.23 [place]% % 4.0 Abs [place] <0.87 k/uL 0.45 Eosin% % 3.0 Abs Eosin <0.46 k/uL 0.34 Baso% % 0.0 Abs Baso <0.11 k/uL 0.00 Realym% % 0.0 Bands % % 0.0 [place] % % 0.0 Myelo % % 0.0 Promylelo % % 0.0 Blast % <=0.0 % 0.0 Lymphoma Cell % % 0.0 Prolymph % % 0.0 Plasma Cells % % 0.0 Megakaryocytic Fragments /100 WBC 0.0 Other Cells % % 0.0 Platelet Estimate Adequate Imaging / Diagnostic Studies: DATE OF EXAM: Mar 06 2022 1:16PM [facility] 0063 - NM PET/CT SKULL-THIGH SUBQ / PROCEDURE REASON: multiple diagnoses HISTORY: 76 years old Male with history of NSCLC. Per EMR, prior right thoracotomy with right upper lobe wedge resection and immediate right upper lobectomy along with mediastinal lymphadenectomy on 08/14/2016. Subsequent SBRT for local recurrence and chemotherapy. COMPARISON: FDG PET/CT dated 05/02/2021 CORRELATION: No prior chest CTs, most recently 02/12/2022 RESULT: REFERENCE: Mediastinal blood pool: Max SUV 2.2 Liver: Max SUV 2.5 HEAD AND NECK: No FDG avid mass or lymphadenopathy. No FDG avid thyroid lesion. Physiologic uptake seen in the visualized brain, parapharyngeal soft tissues, base of tongue, vocal cords, and salivary glands. Uptake throughout the visualized cerebral and cerebellar hemispheres appear symmetric without discrete hyper or hypometabolic foci. CHEST: Physiologic uptake in the heart and mediastinum. Lines, tubes, and devices: None. Lungs and tracheobronchial tree: Status post right upper lobectomy. * Mixed confluent consolidative and groundglass opacities with architectural distortion in the perihilar and apical segment right lower lobe with air bronchograms, similar in appearance to recent prior but progressed from more remote examinations with mild diffuse FDG avidity favoring posttreatment changes and/or inflammation. The previous relatively focal hypermetabolism in the suprahilar and retrohilar regions on 05/02/2021 and PET/CT have improved. * Mosaic attenuation lung parenchyma. Scattered clustered groundglass opacities in the left lung are improved but not resolved and are likely infectious/inflammatory. * A 1.1 cm medial right lower lobe nodule without focal FDG avidity (3:112) is stable since at least 12/13/2021 examination, but slowly enlarged since more remote examinations and remains suspicious. Additional scattered small pulmonary nodules without significant FDG activity are unchanged and below the resolution of PET. There is a new 6 x 3 mm nodule in the left lobe, image #[id number], too small to characterize. Note that PET/CT is not sensitive for pulmonary nodules less than 8 mm. Pleura: No FDG avid pleural effusion or pleural mass. Mediastinum and Lymph nodes: Stable mildly enlarged mediastinal lymph nodes with FDG activity below blood pool, for example a 1.3 cm right paratracheal node with max SUV 1.7 (3:105) and 0.9 cm upper right paratracheal node with max SUV 2.3 (3:101) are unchanged. Heart and great vessels: Within normal limits. Physiologic FDG uptake is seen. Aortic atherosclerosis and mild coronary calcifications.. Chest wall and axilla: No FDG avid lesion. ABDOMEN AND PELVIS: Physiologic uptake seen in the and GI tracts. Liver: No FDG avid lesion. Probable diffuse hepatic steatosis. Biliary: Unremarkable Spleen: No FDG avid mass. No splenomegaly. Pancreas: No FDG avid mass or pancreas duct dilation. Adrenals: No FDG avid lesion.. Kidneys: Excreted activity limits evaluation of the left kidney and collecting system. Status post right nephrectomy without local recurrence. No left FDG avid lesion. No calculus or hydronephrosis.. GI tract: Physiologic activity without suspicious focal uptake. Sigmoid diverticulosis without inflammatory changes. Lymph nodes: No abdominal or pelvic FDG avid lymphadenopathy. Mesentery/Peritoneum: No ascites or FDG avid mass. Retroperitoneum: No mass. Vasculature: Vascular patency cannot be assessed due to lack of IV contrast. There are atherosclerotic calcifications without aneurysmal dilation. Pelvis: No FDG avid mass or ascites.. Excreted activity limits evaluation of bladder. The prostate is mildly enlarged without focal hypermetabolism. Abdominopelvic wall: Unremarkable BONES AND EXTREMITIES: No suspicious FDG avid or destructive osseous lesion. Multilevel degenerative changes throughout the visualized spine. Posterior spinal fusion L3-S1 with L3-4 interbody cage. IMPRESSION: 1. NECK: * No FDG avid neoplastic process.. 2. CHEST: * Progressed mildly FDG avid confluent right perihilar and apical right lower lobe as detailed, favoring posttreatment/inflammatory changes secondary to radiation. Previous focal hypermetabolic foci in the right perihilar region on 05/02/2021 PET/CT are no longer present. * A 1.1 cm medial right lower lobe pulmonary nodule without focal hypermetabolism is stable from recent prior but slowly enlarging over several examinations and remains suspicious for neoplasm. * Additional stable smaller pulmonary nodules below the resolution of PET. * Scattered clustered groundglass opacities predominantly in the left lower lobe are improved but not resolved and likely infectious/inflammatory. * No hypermetabolic thoracic lymph nodes. Stable mildly enlarged mediastinal nodes with low level FDG activity. 3. ABDOMEN/PELVIS: * No FDG avid neoplastic process. Status post right nephrectomy without local recurrence. 4. EXTREMITIES/SKELETON: * No FDG avid neoplastic process.. PAST MEDICAL HISTORY Diagnosis Date Bladder cancer (HCC) Chronic kidney disease COPD (chronic obstructive pulmonary disease) (HCC) Gout Hypercholesterolemia Hypogonadism in male Lung cancer (HCC) Renal cancer (HCC) Shingles 2021 Skin cancer Sleep apnea ALLERGIES No Known Allergies amoxicillin-clavulanic acid (AUGMENTIN) 500-125 mg per tablet take 1 tablet by mouth every 12 hours until finished (EVEN IF SYMPTOMS CLEAR) Ciclopirox (LOPROX) 8 % solution APPLY TOPICALLY TO TOENAIL ONCE A DAY. CLEANSE TOENAILS ONCE A WEEK WITH RUBBING ALCOHOL pantoprazole DR (PROTONIX) 40 mg tablet Take 40 mg by mouth once daily. predniSONE (DELTASONE) 10 mg tablet Take one daily (Patient taking differently: 10 mg once daily. Take one daily) cyanocobalamin, vitamin B-12, (VITAMIN B-12 INJECTION) by INJECTION(UNSPECIFIED PARENTERAL ROUTES) route every 2 weeks. guaifenesin (MUCINEX ORAL) Take 2 tablets by mouth once daily. As needed loratadine (CLARITIN) 10 mg tablet Take 10 mg by mouth once daily. ondansetron (ZOFRAN) 8 mg tablet Take 1 tablet by mouth every 8 hours as needed for nausea/vomiting. fluticasone propionate (FLONASE NASAL) Use 2 Sprays in the nose once daily. doxepin capsule 25 mg Take 25 mg by mouth daily at bedtime. albuterol HFA (PROVENTIL HFA, VENTOLIN HFA) 90 mcg/actuation inhaler Inhale 2 Puffs as instructed four times daily as needed. acetaminophen (TYLENOL EXTRA STRENGTH) 500 mg tablet Take 500 mg by mouth as needed. febuxostat (ULORIC) 40 mg tab Take 40 mg by mouth once daily. testosterone cypionate (DEPO-TESTOSTERONE) 100 mg/mL injection One IM injection twice monthly. pramipexole (MIRAPEX) 0.5 mg tablet Take two tablets by mouth twice daily. Social History Tobacco Use Smoking status: Former Packs/day: 1.00 Years: 30.00 Pack years: 30.00 Types: Cigarettes Quit date: 09/24/1996 Years since quittin.5 Smokeless tobacco: Never Vaping Use Vaping Use: Never used Substance Use Topics Alcohol use: Yes Alcohol/week: 4.0 standard drinks Types: 4 Glasses of Wine (5oz) per week Comment: occassionally/ social Drug use: No FAMILY HISTORY Problem Relation Age of Onset Hypertension Mother other (Lung Cancer) Father other (Parkinson's Disease) Sister other (Bone Cancer) Brother other (Lung Cancer) Brother Diabetes Brother other (Melanoma) Brother other (Hepatitis C) Brother Breast Cancer Sister other (Lung Cancer) Sister other (Parkinson's Disease) Sister Cancer Sister Brain Cancer, lung cancer PAST SURGICAL HISTORY Procedure Laterality Date APPENDECTOMY PAST SURGICAL HISTORY OF 2018 Back surgery PAST SURGICAL HISTORY OF 2010 Bladder surgery PAST SURGICAL HISTORY OF 2015 Skin cancer removed from head PAST SURGICAL HISTORY OF Right 2017 Right upper lobectomy PAST SURGICAL HISTORY OF Right 07/2019 Cataract surgery PAST SURGICAL HISTORY OF Left 08/2019 Cataract Surgery PAST SURGICAL HISTORY OF 08/2019 nasal surgery REMOVAL OF KIDNEY Right 2003 TONSILLECTOMY HX 1998 PMH, Social history, family history and surgical history reviewed and updated in EMR REVIEW OF SYSTEMS: CONSTITUTIONAL: No fevers, chills, nightsweats, unintended weight loss. Fatigue HEENT: Denies nasal congestion/sinus symptoms, problematic allergy problems. CARDIOVASCULAR: No chest pain, palpitations, orthopnea, PND. Some edema PULM: See HPI GI: No dysphagia/odynophagia, problematic reflux NEURO: No new balance problems, peripheral weakness/paresthesias or numbness of concern. MUSC-SKEL: No new joint pain, swelling, or erythema. PSY: No concerns regarding depression, anxiety INTEGUMENTARY: No new skin changes or rashes PHYSICAL EXAMINATION: BP 138/78, pulse 86, RR 19, SPO2 100% on room air, weight 227 pounds General Appearance: Age-appropriate male, NAD Skin: Skin color, texture, turgor normal, no suspicious rashes or lesions. Head: Normocephalic, no masses, lesions, tenderness or abnormalities. Eyes: Sclera, conjunctiva normal Oropharynx: No oral lesions or thrush Neck: No JVD, no masses, no adenopathy Lungs: Not labored, normal to percussion, increased breath sounds right upper lobe without egophony, no crackles or wheezing Heart: Regular rate and rhythm, no murmurs or gallops Extremities: Mild edema, no clubbing Lymph Nodes: No cervical lymphadenopathy and No supraclavicular lymphadenopathy. Assessment/Plan: 1. Post radiation pneumonitis -Imaging studies consistent with inflammation possible radiation pneumonitis right upper lobe. Enlarging nodules consistent with progression of his disease -Continue 10 mg of prednisone for now -Instructed to use his Symbicort 2 puffs twice daily every day. May need to add nebulized budesonide -Follow-up after chest CT. May need repeat bronchoscopy 2. Shortness of breath -Suspect radiation pneumonitis/fibrosis compounded by inadequate treatment for his obstructive sleep apnea -Update PFTs -Encourage patient to reach out to sleep medicine regarding possible Inspire device 3. Lung cancer right upper lobe -Current treatment on hold Margarita Collins MD [facility] [place] documented in this encounter [facility] 03-22-2022 History of Present illness Narrative Radiation Oncology - Follow Up Note PATIENT NAME: Checo Johnson PATIENT DIAGNOSIS: Local hilar recurrence vs. new primary right lower lobe lung cancer with h/o stage IIB, T3N0, non-small cell lung cancer (adenocarcinoma) in 2017 treated with right upper lobectomy and adjuvant chemotherapy, s/p radiation treatment finished on 12/31/19. s/p Abraxane, carboplatin and Keytruda and currently on maintenance Keytruda. INTERVAL HISTORY: He is here to discuss results of recent surveillance CT chest and PET scan. CT chset on 02/12/22 showed a few right lung nodules with some of them showing interval slight increase in size. There is a 1 cm nodule in the right lower lobe, series 14 image 141, slightly enlarged compared to prior study. Also noted is an enlarging nodule in the left lower lobe now measuring 8.5 mm, previously 4.5 mm. PET/CT scan on 03/06/22 showed, Progressed mildly FDG avid confluent right perihilar and apical right lower lobe...favoring posttreatment/inflammatory changes secondary to radiation. Previous focal hypermetabolic foci in the right perihilar region on 05/02/2021 PET/CT are no longer present... A 1.1 cm medial right lower lobe pulmonary nodule without focal hypermetabolism is stable from recent prior but slowly enlarging over several examinations and remains suspicious for neoplasm... Additional stable smaller pulmonary nodules below the resolution of PET ALLERGIES No Known Allergies MEDICATIONS: amoxicillin-clavulanic acid (AUGMENTIN) 500-125 mg per tablet take 1 tablet by mouth every 12 hours until finished (EVEN IF SYMPTOMS CLEAR) Ciclopirox (LOPROX) 8 % solution APPLY TOPICALLY TO TOENAIL ONCE A DAY. CLEANSE TOENAILS ONCE A WEEK WITH RUBBING ALCOHOL levoFLOXacin (LEVAQUIN) 500 mg tablet Take 1 tablet by mouth once daily for [address] (PROTONIX) 40 mg tablet Take 40 mg by mouth once daily. predniSONE (DELTASONE) 10 mg tablet Take one daily (Patient taking differently: 10 mg once daily. Take one daily) cyanocobalamin, vitamin B-12, (VITAMIN B-12 INJECTION) by INJECTION(UNSPECIFIED PARENTERAL ROUTES) route every 2 weeks. guaifenesin (MUCINEX ORAL) Take 2 tablets by mouth once daily. As needed loratadine (CLARITIN) 10 mg tablet Take 10 mg by mouth once daily. ondansetron (ZOFRAN) 8 mg tablet Take 1 tablet by mouth every 8 hours as needed for nausea/vomiting. fluticasone propionate (FLONASE NASAL) Use 2 Sprays in the nose once daily. doxepin capsule 25 mg Take 25 mg by mouth daily at bedtime. albuterol HFA (PROVENTIL HFA, VENTOLIN HFA) 90 mcg/actuation inhaler Inhale 2 Puffs as instructed four times daily as needed. acetaminophen (TYLENOL EXTRA STRENGTH) 500 mg tablet Take 500 mg by mouth as needed. febuxostat (ULORIC) 40 mg tab Take 40 mg by mouth once daily. testosterone cypionate (DEPO-TESTOSTERONE) 100 mg/mL injection One IM injection twice monthly. pramipexole (MIRAPEX) 0.5 mg tablet Take two tablets by mouth twice daily. REVIEW OF SYSTEMS: GENERAL: Negative for weight loss, fevers, chills, or night sweats. HEENT: Negative for sudden vision or hearing changes. NECK: Negative for masses in the neck. RESPIRATORY: chronic cough and shortness of breath with exertion without recent changes. CARDIAC: Negative for chest pain, palpitations, murmurs, or syncopal episodes. GI: Negative for nausea, vomiting, diarrhea, constipation, blood per rectum, or melena. : chronic urgency MUSCULOSKELETAL: Negative for limitations in movement, pain, or swelling. NEURO: chronic numbness in hands/feet. HEMATOLOGIC: Negative for bleeding or easy bruising. SKIN: Negative for rashes or other skin changes. PHYSICAL EXAM: VS: BP 109/72 Pulse 85 Temp 36.2 C (97.2 F) (Temporal) Resp 24 Wt 102.5 kg (226 lb) SpO2 96% BMI 28.25 kg/m KPS: 90 General Appearance: Alert and oriented. No acute distress. HEENT: NCAT. Sclera anicteric. EOMI. Neck: Normal ROM. Chest: No respiratory distress. Musculoskeletal: No edema. Normal ROM in extremities. Neuro: Speech fluent. Gait normal. No focal deficits. Skin: No rashes noted ASSESSMENT AND PLAN: 76 year old man with local hilar recurrence vs. new primary right lower lobe lung cancer with h/o stage IIB, T3N0, non-small cell lung cancer (adenocarcinoma) in 2017 treated with right upper lobectomy and adjuvant chemotherapy, s/p radiation treatment finished on 12/31/19. s/p Abraxane, carboplatin and Keytruda and currently on maintenance Keytruda. He now has slowly enlarging right lower lobe lesion. I reviewed his recent CT chest, PET/CT and his previous radiation treatment planning. The lesion is located in the area of previous radiation build up to the target area. As PET scan was negative in that lesion, it can be part of evolving radiation changes. However, malignancy cannot be ruled out. I recommend follow-up CT chest in two months. He is scheduled to have CT chest on 05/21/22 and then to see Dr. Noble on 05/24/22. Signed by: Renny Briggs MD cc: David Chandler MD [address] [place] [address] Dave Noble documented in this encounter [facility] 03-19-2022 Nurse Note Radiation Therapy - Nursing Note (Consult) PATIENT NAME: Checo Johnson PATIENT March 19, 2022 [facility] FACILITY/LOCATION: [place] Chief Complaint: Lung cancer Reason for visit: Consult. Referring physician: Internal provider Dr Noble Subjective Data: no new complaints Additional Data Do you want to see a Church Worker? No Are you interested in information about fertility? No Status: Patient is male Stress Scale: On a scale of 0 to 10, what number best describes how much distress you have experienced in the past week?(0 being no distress and 10 being extreme distress) 0 Social work notified: Pt denied need to see sexual assault social worker at this time. SIGNED by: Miryam Soliman RN documented in this encounter [facility] 03-19-2022 History of Present illness Narrative Diagnosis: 1) NSCLC. HPI: The patient is a 76 yo male with PMH significant for RCC (right nephrectomy at [facility] 2003; followed up with Dr. Hernandez), superficial bladder cancer, LUIS CARLOS (underwent uvulopalatopharyngoplasty by Dr. Aguilera), COPD and gout. He had been under the care of [...] an SUV of 2 for that lesion. Patient underwent a CT chest on 05/07/2016. The inhomogeneous soft tissue density in the posterior medial segment of the right upper lobe was not noted to change in size and measured 3.6 x 3.8 x 4.8 cm. Patient was referred to a thoracic surgeon at [facility]. He ultimately underwent a right thoracotomy with right upper lobe wedge resection and immediate right upper lobectomy along with mediastinal lymphadenectomy on 08/14/2016. The final pathology demonstrated within the wedge [...] sections. Final pathologic staging was pT3 N0. Previous therapy: 1) Adjuvant carbo/paclitaxel completed 01/2017. He had a surveillance CT of the chest in June 2018 which showed stable 4 mm nodules in the right lung. A subsequent surveillance CT chest December 2018 revealed stable findings. However in June 2019 CT scan showed mild enlargement of soft tissue density in the right hilum/suprahilar region. This was thought to potentially represent recurrent disease. It measured 2.4 x 1.3 cm versus 1.4 x 1.[address] was obtained on 07/07/2019 and it demonstrated only slight FDG avidity corresponding to the right hilar/suprahilar enlarging soft tissue density with a max SUV of 3.0. A follow-up CT chest in October 2019 revealed interval increase in size of the soft tissue mass/density posterior to the right mainstem bronchus measuring 2.3 x 1.7 cm. Previously it was noted to be 2.1 x 1.2 cm. There was no CT evidence of progressive adenopathy. Patient underwent a bronchoscopy in October 2019. He was noted to have slight inward bulging of the posterior wall of the right middle lobe bronchus and bronchus intermedius without any compromise to luminal patency. This corresponded to the site of the right lower lobe lesion on imaging. Bronchial mucosa and anatomy were otherwise normal. There were no endobronchial lesions and no secretions. He underwent EBUS and TB NA of the right lower lobe lung nodule and cytology was positive for malignant cells. Pathology demonstrated non-small cell carcinoma favoring adenocarcinoma. Molecular telephone directory distributor driver mutations were all negative. Repeat PET/CT 11/17/2019 revealed mild uptake in the right lung nodule with a max SUV of 2.5. There was no other suspicious uptake. Brain MRI 11/04/2019 revealed no brain metastases. Patient underwent SBRT for local hilar recurrence versus new primary right lower lobe lung cancer. Was completed 2019. Patient had a surveillance CT of the chest on 01/06/2021. That study showed extensive postsurgical change and scarring from right upper lobectomy. There was paramedian fibrosis and bronchiectasis on the right which was noted previously. There was a right subcentimeter mid lung field nodule which was unchanged. No new nodules were observed. No enlarged lymph nodes were observed. There was marked deformity of the right mainstem bronchus. 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 Patient has had a persistent cough predating radiation last year. It is a constant nagging cough triggered by deep breath and particularly bothersome at nighttime. If he has sputum production, it is nonpurulent typically clear to whitish in color. He is not had hemoptysis. No chest pain. He is not able to use his CPAP machine properly because of the cough. Some nights he has to sit on the side of the bed waiting an hour or 2 for paroxysm of cough to settle down. He has tried multiple interventions for the cough including Tessalon Perles and multiple codeine and Hycodan-based cough syrups which did not help. Underwent bronchoscopy 05/18/2021. Airway examination of the left lung was normal. There was extrinsic compression observed in the bronchus intermedius. Lymph node sizing and sampling was performed. EBUS TB NA was performed at lymph node station 7. Rapid onsite evaluation preliminary cytology suggested malignancy and level 7 lymph node. Pathology: FINAL DIAGNOSIS A. BRONCHIAL, #22 EBUS TBNA STATION 7, FINE NEEDLE ASPIRATE (THINPREP, SMEARS AND CELL BLOCK) Positive for malignant cells. Adenocarcinoma. Previous therapy: 1) Abraxane, carboplatin and Keytruda. Current therapy: 1) Pembrolizumab. Presents for ongoing oncologic management. Interim history: Continues to cough. Minimally productive. No wheezing. Dyspnea with exertion is stable and it limits his activities. No hemoptysis. Denies chest pain. No fever. Appetite normal. Tapered to prednisone 10 mg daily. Recently finished Augmentin for toe infection. PMH, medications and allergies as below personally reviewed by me today. Any changes documented in appropriate section. ROS: Neuro: Denies SAAB, vertigo, dizziness and imbalance. HEENT: No recent change in voice, vision or hearing. Resp: See above. CVS: Denies exertional chest pain, PND, orthopnea and LE edema. GI: Denies dysgeusia. Denies symptoms of stomatitis. Denies dysphagia and odynophagia. Denies reflux, n/v, change in bowel habits and abdominal pain. : Denies dysuria or gross hematuria. No symptoms of bladder outlet obstruction. Endo: Denies hot flashes. Denies polyuria and polydipsia. Denies heat and cold intolerance. Musculoskeletal: Denies bone, back, joint and muscular pain. Derm: Denies rash. Denies jaundice and diffuse pruritis. Heme: Denies unusual bleeding and unexplained bruising. Psych: Normal mood. PHYSICAL EXAM: Vitals: Blood pressure 109/72, pulse 85, temperature 36.2 C (97.2 F), weight 102.5 kg (226 lb), SpO2 96 %. Well-appearing and in no acute distress. EYES: Sclerae are anicteric bilaterally. NECK: Supple. No enlargement of thyroid. LYMPHATIC: There is no palpable cervical, supraclavicular, axillary or inguinal adenopathy. RESPIRATORY: Good air entry all allison with the exception of tubular breath sounds in the right upper lung field. No wheeze or rhonchi appreciated. CARDIOVASCULAR: Rhythm is regular. ABDOMEN: The abdomen is nondistended. No organomegaly. No tenderness. Extremities: No swelling or edema. SKIN: No jaundice or rash. NEUROLOGIC: metal grader II-XII are grossly intact. MUSCULOSKELETAL: No joint swelling or tenderness. No muscle wasting. 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 -Patient received SBRT for local recurrence of disease. -Recent PET scan in conjunction with biopsy of subcarinal lymph node demonstrate recurrent disease. -PDL-1 1%. -ALK rearrangement not detected. -BRAF - A sequence change: [id number] [[id number] ([id number])]. Not V600E mutation. -EGFR -No variant detected. -HER2 (ERBB2) - No variant detected. -KRAS - No variant detected. -MET - No variant detected. -Reviewed PET scan findings. Slowly enlarging right lower lobe nodule. Stable left lower lobe nodule compared to most recent CT scan. Suspicion that both of these may represent worsening malignancy. I discussed this with him but given his overall condition very reluctant to put him back on chemotherapy at this point. Recommended radiation oncology consultation and reevaluation by pulmonary medicine. If his pulmonary symptoms stabilize, then consider single agent chemotherapy such as Taxotere or Waqar being if biopsy-proven progressive disease. Plan: -Continue prednisone 10 mg daily. -Rx Levaquin 500 mg x 10 days. -Referral to radiation oncology and back to pulmonary medicine. -CT chest without IV contrast followed by office visit in 8 weeks. Portions of this documentation were copied and pasted from previous office visit notes in order to provide a cohesive continuity of the history. The note has been reviewed and edited and updated as necessary. During this patient visit I have spent approximately 15 minutes out of 25 in counseling regarding treatment options, medications and test results and coordinating care. Dave Noble DO documented in this encounter [facility] 03-06-2022 History of Present illness Narrative RADIOLOGY SERVICE PROGRESS NOTE SERVICE DATE: 03/06/2022 SERVICE TIME: 12:21 PM PATIENT IDENTITY VERIFICATION COMPLETED USING TWO (2) STANDARD IDENTIFIERS: Name and Date of confirmed by patient verbally FALL SCREENING: Has the patient had 2 falls in the last year or 1 fall with injury or currently using an Ambulatory Assistive Device (Walker, Cane, Wheelchair, Crutches, etc.)? No PATIENT GENDER DATA: .male ALLERGIES: Reviewed and unchanged MEDICATIONS REVIEWED: No PATIENT RELEVANT IMPLANT DATA REVIEWED: Not Applicable CREATININE: Creatinine Date Value Ref Range Status 02/14/2022 2.01 (H) 0.73 - 1.22 mg/dL Final 01/23/2022 1.75 (H) 0.73 - 1.22 mg/dL Final 01/02/2022 1.69 (H) 0.73 - 1.22 mg/dL Final Estimated Glomerular Filtration Rate Date Value Ref Range Status 02/14/2022 34 (L) >=60 mL/min/1.73m Final Comment: Estimated Glomerular Filtration Rate (eGFR) is calculated using the 2020 CKD-EPI creatinine equation. This equation utilizes serum creatinine, sex, and age as parameters. The creatinine assay has traceable calibration to isotope dilution-mass spectrometry. Refer to KDIGO guidelines for clinical interpretation. In patients with unstable renal function, e.g. those with acute kidney injury, the eGFR may not accurately reflect actual GFR. eGFR- Date Value Ref Range Status 09/15/2021 47 Final P.O.C.T. RESULTS: N/A March 06, [address] PERFORMED: No IV SITE: Ambulatory: NM only - direct IV injection in the Right antecubital site POST EXAM PIV STATUS: Not applicable PROCEDURE TYPE: NM INJECT: PET/CT BODY SCAN. 15.1 mCi F18 FDG. No other medications given.. ADMINISTRATION TIME: 1216 PATIENT DISCHARGED TO: Ambulatory patient, left [place] department area. A Diagnostic radioactive procedure has taken place, with no further precautions necessary other than routine body substance precautions. More information regarding radiation safety can be found using this link: [email or web address] SIGNATURE: Ellie RT Cornelius(R) PATIENT NAME: Checo Johnson DATE: March 06, 2022 TIME: 12:21 PM PAGER/CONTACT #: documented in this encounter [facility] 02-20-2022 Miscellaneous Notes Pet scan scheduled 03/06. Called patient and scheduled OV after. I called and left a message for Checo to call back tomorrow morning after 8:00am, to be given the below information and to schedule a PET scan at [facility] Macrina Vides Pss Can let him know that the CT of the chest showed that a few of the nodules in the right lung got a tiny bit larger but my concern as an enlarging nodule in the lower left lung. I personally reviewed the CT images going back to August and this nodule has increased from a couple millimeters and is now measuring 8.5 mm in size. I would like to obtain a PET scan. Can schedule that in [facility] office visit with me right after the PET scan. Dave Noble DO documented in this encounter [facility] 02-14-2022 History of Present illness Narrative Chief Complaint Patient presents with: Established Patient HPI: Checo Johnson is a 76 year old male who presents here today for follow up lung cancer. Per Dr. Noble's previous note: H/o RCC (right nephrectomy at [facility] 2003; followed up with Dr. Hernandez), superficial bladder cancer, LUIS CARLOS (underwent uvulopalatopharyngoplasty by Dr. Aguilera), COPD and gout. He had been under the care of [...] an SUV of 2 for that lesion. Patient underwent a CT chest on 05/07/2016. The inhomogeneous soft tissue density in the posterior medial segment of the right upper lobe was not noted to change in size and measured 3.6 x 3.8 x 4.8 cm. Patient was referred to a thoracic surgeon at [facility]. He ultimately underwent a right thoracotomy with right upper lobe wedge resection and immediate right upper lobectomy along with mediastinal lymphadenectomy on 08/14/2016. The final pathology demonstrated within the wedge [...] sections. Final pathologic staging was pT3 N0. Previous therapy: 1) Adjuvant carbo/paclitaxel completed 01/2017. He had a surveillance CT of the chest in June 2018 which showed stable 4 mm nodules in the right lung. A subsequent surveillance CT chest December 2018 revealed stable findings. However in June 2019 CT scan showed mild enlargement of soft tissue density in the right hilum/suprahilar region. This was thought to potentially represent recurrent disease. It measured 2.4 x 1.3 cm versus 1.4 x 1.[address] was obtained on 07/07/2019 and it demonstrated only slight FDG avidity corresponding to the right hilar/suprahilar enlarging soft tissue density with a max SUV of 3.0. A follow-up CT chest in October 2019 revealed interval increase in size of the soft tissue mass/density posterior to the right mainstem bronchus measuring 2.3 x 1.7 cm. Previously it was noted to be 2.1 x 1.2 cm. There was no CT evidence of progressive adenopathy. Patient underwent a bronchoscopy in October 2019. He was noted to have slight inward bulging of the posterior wall of the right middle lobe bronchus and bronchus intermedius without any compromise to luminal patency. This corresponded to the site of the right lower lobe lesion on imaging. Bronchial mucosa and anatomy were otherwise normal. There were no endobronchial lesions and no secretions. He underwent EBUS and TB NA of the right lower lobe lung nodule and cytology was positive for malignant cells. Pathology demonstrated non-small cell carcinoma favoring adenocarcinoma. Molecular telephone directory distributor driver mutations were all negative. Repeat PET/CT 11/17/2019 revealed mild uptake in the right lung nodule with a max SUV of 2.5. There was no other suspicious uptake. Brain MRI 11/04/2019 revealed no brain metastases. Patient underwent SBRT for local hilar recurrence versus new primary right lower lobe lung cancer. Was completed 2019. Patient had a surveillance CT of the chest on 01/06/2021. That study showed extensive postsurgical change and scarring from right upper lobectomy. There was paramedian fibrosis and bronchiectasis on the right which was noted previously. There was a right subcentimeter mid lung field nodule which was unchanged. No new nodules were observed. No enlarged lymph nodes were observed. There was marked deformity of the right mainstem bronchus. 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 Patient has had a persistent cough predating radiation last year. It is a constant nagging cough triggered by deep breath and particularly bothersome at nighttime. If he has sputum production, it is nonpurulent typically clear to whitish in color. He is not had hemoptysis. No chest pain. He is not able to use his CPAP machine properly because of the cough. Some nights he has to sit on the side of the bed waiting an hour or 2 for paroxysm of cough to settle down. He has tried multiple interventions for the cough including Tessalon Perles and multiple codeine and Hycodan-based cough syrups which did not help. Underwent bronchoscopy 05/18/2021. Airway examination of the left lung was normal. There was extrinsic compression observed in the bronchus intermedius. Lymph node sizing and sampling was performed. EBUS TB NA was performed at lymph node station 7. Rapid onsite evaluation preliminary cytology suggested malignancy and level 7 lymph node. Pathology: FINAL DIAGNOSIS A. BRONCHIAL, #22 EBUS TBNA STATION 7, FINE NEEDLE ASPIRATE (THINPREP, SMEARS AND CELL BLOCK) Positive for malignant cells. Adenocarcinoma. Previous therapy: 1) Abraxane, carboplatin and Keytruda. Current therapy: 1) Pembrolizumab. Pt. current taking prednison taper. Currently taking 30mg daily. Appetite: Energy level: 4 I don't get good sleep on the prednisone. I nap when I can. Denies fevers. Mouth:denies sores Resp:occ. zuihn-loi-knmwnrmeot, denies sob Cardiac:denies chest pain/palpitations GI:denies abd pain, n/v, moving bowels regularly :denies dysuria/hematuria Extrem:denies pain Neuro:+neuropathy-L hand carpal tunnel. Skin:denies rash Heme:denies bleeding The ROS is otherwise negative. Past medical history, appointments, medications, allergies reviewed. No changes. EXAM: BP 108/67 Pulse 93 Temp 36.9 C (98.4 F) Wt 103 kg (227 lb) SpO2 96% BMI 28.37 kg/m APPEARANCE Well appearing, alert, in no acute distress, well-hydrated, well nourished. HEART RRR with normal S1 and S2, no murmurs LUNG clear to auscultation LYMPH NODES No cervical lymphadenopathy, No supraclavicular lymphadenopathy and No axillary lymphadenopathy. ABDOMEN bowel sounds normoactive, soft, non-tender, non-distended, without organomegaly or palpable masses EXTREMITIES No edema NEURO Awake, alert and oriented x 3, Normal gait and No involuntary motions. SKIN Skin color, texture, turgor normal, no suspicious rashes or lesions LABS: Component Latest Ref Rng & Units 01/02/2022 01/23/2022 02/14/2022 WBC 3.70 - 11.00 k/uL 7.77 8.61 11.17 (H) RBC 4.20 - 6.00 m/uL 4.97 5.02 5.10 Hemoglobin 13.0 - 17.0 g/dL 14.9 14.8 15.1 Hematocrit 39.0 - 51.0 % 45.0 44.5 45.7 MCV 80.0 - 100.0 fL 90.5 88.6 89.6 MCH 26.0 - 34.0 pg 30.0 29.5 29.6 MCHC 30.5 - 36.0 g/dL 33.1 33.3 33.0 RDW-CV 11.5 - 15.0 % 15.9 (H) 15.1 (H) 15.4 (H) Platelet Count 150 - 400 k/uL 185 242 176 MPV 9.0 - 12.7 fL 9.7 9.7 10.3 NRBC /100 WBC 0.0 0.0 Absolute nRBC <0.01 k/uL <0.01 <0.01 Neut% % 75.4 91.5 Abs Neut (ANC) 1.45 - 7.50 k/uL 5.86 7.88 (H) Lymph% % 14.9 4.8 Abs Lymph 1.00 - 4.00 k/uL 1.16 0.41 (L) [place]% % 8.8 1.4 Abs [place] <0.87 k/uL 0.68 0.12 Eosin% % 0.9 0.2 Abs Eosin <0.46 k/uL 0.07 <0.03 Baso% % 0.0 0.5 Abs Baso <0.11 k/uL 0.00 0.04 Realym% % 0.0 Platelet Estimate Adequate Red Cell Morph Reviewed: see results of individual morphologies Polychromasia Slight Anisocytosis Present Ovalocytes Few Tear Drop Few DTYPE Manual Auto Immature Gran % % 1.6 IMMATURE GRANS (ABS) <0.10 k/uL 0.14 (H) Component Latest Ref Rng & Units 12/08/2021 01/02/2022 01/23/2022 02/14/2022 Protein, Total 6.3 - 8.0 g/dL 6.3 6.8 6.8 6.8 Albumin 3.9 - 4.9 g/dL 3.7 (L) 3.8 (L) 3.9 4.1 Calcium 8.5 - 10.2 mg/dL 8.4 (L) 8.9 9.1 8.7 Bilirubin, Total 0.2 - 1.3 mg/dL 0.3 0.4 0.4 0.8 Alkaline Phosphatase 38 - 113 U/L 71 73 77 75 AST 14 - 40 U/L 31 22 15 20 ALT 10 - 54 U/L 44 24 10 24 Glucose 74 - 99 mg/dL 93 68 (L) 140 (H) 124 (H) BUN 9 - 24 mg/dL 33 (H) 21 22 36 (H) Creatinine 0.73 - 1.22 mg/dL 1.61 (H) 1.69 (H) 1.75 (H) 2.01 (H) Sodium 136 - 144 mmol/L 137 138 138 136 Potassium 3.7 - 5.1 mmol/L 4.2 4.1 5.2 (H) 4.1 Chloride 97 - 105 mmol/L 104 101 101 102 CO2 22 - 30 mmol/L 24 26 23 21 (L) Anion Gap 9 - 18 mmol/L 9 11 14 13 eGFR >=60 mL/min/1.73m 44 (L) 42 (L) 40 (L) 34 (L) Component Latest Ref Rng & Units 01/23/2022 02/14/2022 Magnesium 1.7 - 2.3 mg/dL 1.8 2.2 RADIOLOGY: CT chest 02/12/22: Pending ASSESSMENT/PLAN: 1. 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) - ICD9: 162.3, ICD10: C34.11 (primary diagnosis) NSCLC. pT3 N0 MX (greater than 7 cm adenocarcinoma) stage 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 -Patient received SBRT for local recurrence of disease. 2. Interstitial pulmonary disease (HCC) - ICD9: 515, ICD10: J84.9 - Keytruda has been on hold d/t pneumonitis. - Reviewed resulted labs with pt. - CT chest pending. - Continue prednisone taper. - Encouraged pt. to drink more fluids-creat. up. - Continue to hold Keytruda. - Once CT chest resulted will discuss plan with Dr. Noble when he returns next week. - Follow up pending CT chest. - Pt. aware to call office with any questions/concerns. The patient indicates understanding of these issues and agrees with the plan. All documentation from previous visit of 01/23/22-Dr. Noble was copied and pasted, documentation has been reviewed and edited as necessary for today's visit. Xuan Lora APRN.[place] documented in this encounter [facility] 02-12-2022 History of Present illness Narrative Radiology Service Progress Note PATIENT NAME: Checo Johnson DATE OF SERVICE: February 12, 2022 TIME: 3:21 PM PATIENT IDENTITY VERIFICATION COMPLETED USING TWO (2) IDENTIFIERS: Name and Date of confirmed by patient verbally. FALL SCREENING: Has the patient had 2 falls in the last year or 1 fall with injury or currently using an Ambulatory Assistive Device (Walker, Cane, Wheelchair, Crutches, etc.)? No PATIENT GENDER DATA: Male PATIENT RELEVANT IMPLANT DATA REVIEWED: Not Applicable RADIOLOGY DEPARTMENT: CT; Exam(s) Completed: Chest PERIPHERAL IV DATA: Not applicable SIGNED BY: RT Guerrero(R) February 12, 2022 3:21 PM documented in this encounter [facility] 01-23-2022 History of Present illness Narrative Diagnosis: 1) NSCLC. HPI: The patient is a 75 yo male with PMH significant for RCC (right nephrectomy at [facility] 2004; followed up with Dr. Hernandez), superficial bladder cancer, LUIS CARLOS (underwent uvulopalatopharyngoplasty by Dr. Aguilera), COPD and gout. He had been under the care of [...] an SUV of 2 for that lesion. Patient underwent a CT chest on 05/07/2016. The inhomogeneous soft tissue density in the posterior medial segment of the right upper lobe was not noted to change in size and measured 3.6 x 3.8 x 4.8 cm. Patient was referred to a thoracic surgeon at [facility]. He ultimately underwent a right thoracotomy with right upper lobe wedge resection and immediate right upper lobectomy along with mediastinal lymphadenectomy on 08/14/2016. The final pathology demonstrated within the wedge [...] sections. Final pathologic staging was pT3 N0. Previous therapy: 1) Adjuvant carbo/paclitaxel completed 01/2017. He had a surveillance CT of the chest in June 2018 which showed stable 4 mm nodules in the right lung. A subsequent surveillance CT chest December 2018 revealed stable findings. However in June 2019 CT scan showed mild enlargement of soft tissue density in the right hilum/suprahilar region. This was thought to potentially represent recurrent disease. It measured 2.4 x 1.3 cm versus 1.4 x 1.[address] was obtained on 07/07/2019 and it demonstrated only slight FDG avidity corresponding to the right hilar/suprahilar enlarging soft tissue density with a max SUV of 3.0. A follow-up CT chest in October 2019 revealed interval increase in size of the soft tissue mass/density posterior to the right mainstem bronchus measuring 2.3 x 1.7 cm. Previously it was noted to be 2.1 x 1.2 cm. There was no CT evidence of progressive adenopathy. Patient underwent a bronchoscopy in October 2019. He was noted to have slight inward bulging of the posterior wall of the right middle lobe bronchus and bronchus intermedius without any compromise to luminal patency. This corresponded to the site of the right lower lobe lesion on imaging. Bronchial mucosa and anatomy were otherwise normal. There were no endobronchial lesions and no secretions. He underwent EBUS and TB NA of the right lower lobe lung nodule and cytology was positive for malignant cells. Pathology demonstrated non-small cell carcinoma favoring adenocarcinoma. Molecular telephone directory distributor driver mutations were all negative. Repeat PET/CT 11/17/2019 revealed mild uptake in the right lung nodule with a max SUV of 2.5. There was no other suspicious uptake. Brain MRI 11/04/2019 revealed no brain metastases. Patient underwent SBRT for local hilar recurrence versus new primary right lower lobe lung cancer. Was completed 2019. Patient had a surveillance CT of the chest on 01/06/2021. That study showed extensive postsurgical change and scarring from right upper lobectomy. There was paramedian fibrosis and bronchiectasis on the right which was noted previously. There was a right subcentimeter mid lung field nodule which was unchanged. No new nodules were observed. No enlarged lymph nodes were observed. There was marked deformity of the right mainstem bronchus. 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 Patient has had a persistent cough predating radiation last year. It is a constant nagging cough triggered by deep breath and particularly bothersome at nighttime. If he has sputum production, it is nonpurulent typically clear to whitish in color. He is not had hemoptysis. No chest pain. He is not able to use his CPAP machine properly because of the cough. Some nights he has to sit on the side of the bed waiting an hour or 2 for paroxysm of cough to settle down. He has tried multiple interventions for the cough including Tessalon Perles and multiple codeine and Hycodan-based cough syrups which did not help. Underwent bronchoscopy 05/18/2021. Airway examination of the left lung was normal. There was extrinsic compression observed in the bronchus intermedius. Lymph node sizing and sampling was performed. EBUS TB NA was performed at lymph node station 7. Rapid onsite evaluation preliminary cytology suggested malignancy and level 7 lymph node. Pathology: FINAL DIAGNOSIS A. BRONCHIAL, #22 EBUS TBNA STATION 7, FINE NEEDLE ASPIRATE (THINPREP, SMEARS AND CELL BLOCK) Positive for malignant cells. Adenocarcinoma. Previous therapy: 1) Abraxane, carboplatin and Keytruda. Current therapy: 1) Pembrolizumab. Presents for ongoing oncologic management. 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 He was started on prednisone taper and his cough had substantially improved. Once he got down to 10 mg a day however cough started to increase. He started back on prednisone 40 mg daily yesterday. He has not noticed significant improvement in cough as of yet. However he is not as short of breath as he was prior to starting prednisone altogether. He feels like he can get a deeper breath particularly when going up and down steps. He still however gets generalized fatigue when he is doing activities. No chest pain. No hemoptysis. PMH, medications and allergies as below personally reviewed by me today. Any changes documented in appropriate section. ROS: Constitutional: No episode of fever, night sweats or loss of appetite. Neuro: Denies SAAB, vertigo, dizziness and imbalance. HEENT: No recent change in voice, vision or hearing. Resp: See above. CVS: Denies exertional chest pain, PND, orthopnea and LE edema. GI: Denies dysgeusia. Denies symptoms of stomatitis. Denies dysphagia and odynophagia. Denies reflux, n/v, change in bowel habits and abdominal pain. : Denies dysuria or gross hematuria. No symptoms of bladder outlet obstruction. Endo: Denies hot flashes. Denies polyuria and polydipsia. Denies heat and cold intolerance. Musculoskeletal: Denies bone, back, joint and muscular pain. Derm: Denies rash. Denies jaundice and diffuse pruritis. Heme: Denies unusual bleeding and unexplained bruising. Psych: Normal mood. PHYSICAL EXAM: Vitals: Blood pressure 111/78, pulse 97, temperature 36.8 C (98.2 F), temperature source Temporal, weight 100.9 kg (222 lb 8 oz), SpO2 95 %. Well-appearing and in no acute distress. EYES: Sclerae are anicteric bilaterally. NECK: Supple. No enlargement of thyroid. LYMPHATIC: There is no palpable cervical, supraclavicular, axillary or inguinal adenopathy. RESPIRATORY: He has better air entry in all lung allison. Still has tubular sounding breath sounds at the right upper lung field. No wheeze or rhonchi appreciated today. CARDIOVASCULAR: Rhythm is regular. ABDOMEN: The abdomen is nondistended. No organomegaly. No tenderness. Extremities: No swelling or edema. SKIN: No jaundice or rash. NEUROLOGIC: metal grader II-XII are grossly intact. MUSCULOSKELETAL: No joint swelling or tenderness. No muscle wasting. 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 -Patient received SBRT for local recurrence of disease. -Recent PET scan in conjunction with biopsy of subcarinal lymph node demonstrate recurrent disease. -PDL-1 1%. -ALK rearrangement not detected. -BRAF - A sequence change: [id number] [[id number] ([id number])]. Not V600E mutation. -EGFR -No variant detected. -HER2 (ERBB2) - No variant detected. -KRAS - No variant detected. -MET - No variant detected. 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 Plan: -Prednisone 40 mg daily for 14 days then decrease to 30 mg daily. -CT chest and office visit in 3 weeks. Further prednisone taper based upon symptoms and appearance of the CT scan. Portions of this documentation were copied and pasted from previous office visit notes in order to provide a cohesive continuity of the history. The note has been reviewed and edited and updated as necessary. During this patient visit I have spent approximately 15 minutes out of 25 in counseling regarding treatment options, medications and test results and coordinating care. Dave Noble DO documented in this encounter [facility] 01-15-2022 History of Present illness Narrative Radiology Service Progress Note PATIENT NAME: Checo Johnson DATE OF SERVICE: January 15, 2022 TIME: 3:36 PM PATIENT IDENTITY VERIFICATION COMPLETED USING TWO (2) IDENTIFIERS: Name and Date of confirmed by patient verbally. FALL SCREENING: Has the patient had 2 falls in the last year or 1 fall with injury or currently using an Ambulatory Assistive Device (Walker, Cane, Wheelchair, Crutches, etc.)? No PATIENT GENDER DATA: Male PATIENT RELEVANT IMPLANT DATA REVIEWED: Not Applicable RADIOLOGY DEPARTMENT: General X-ray: Exam(s) Completed: Chest X-Ray PERIPHERAL IV DATA: Not applicable SIGNED BY: RT Lia(R) January 15, 2022 3:36 PM documented in this encounter [facility] 01-15-2022 Miscellaneous Notes Please see my chart message. Advised pt. to come in for CXR today. Thank you. Xuan Lora APRN.[employer]IL PIPE INSPECTOR documented in this encounter [facility] 01-04-2022 History of Present illness Narrative No changes to assessment from 01/02/22. Dara Liu RN documented in this encounter [facility] 01-02-2022 History of Present illness Narrative Chief Complaint Patient presents with: Established Patient HPI: Checo Johnson is a 76 year old male who presents here today for evaluation for treatment on . Per Dr. Noble's previous note: H/o RCC (right nephrectomy at [facility] 2003; followed up with Dr. Hernandez), superficial bladder cancer, LUIS CARLOS (underwent uvulopalatopharyngoplasty by Dr. Aguilera), COPD and gout. He had been under the care of [...] an SUV of 2 for that lesion. Patient underwent a CT chest on 05/07/2016. The inhomogeneous soft tissue density in the posterior medial segment of the right upper lobe was not noted to change in size and measured 3.6 x 3.8 x 4.8 cm. Patient was referred to a thoracic surgeon at [facility]. He ultimately underwent a right thoracotomy with right upper lobe wedge resection and immediate right upper lobectomy along with mediastinal lymphadenectomy on 08/14/2016. The final pathology demonstrated within the wedge [...] sections. Final pathologic staging was pT3 N0. Previous therapy: 1) Adjuvant carbo/paclitaxel completed 01/2017. He had a surveillance CT of the chest in June 2018 which showed stable 4 mm nodules in the right lung. A subsequent surveillance CT chest December 2018 revealed stable findings. However in June 2019 CT scan showed mild enlargement of soft tissue density in the right hilum/suprahilar region. This was thought to potentially represent recurrent disease. It measured 2.4 x 1.3 cm versus 1.4 x 1.[address] was obtained on 07/07/2019 and it demonstrated only slight FDG avidity corresponding to the right hilar/suprahilar enlarging soft tissue density with a max SUV of 3.0. A follow-up CT chest in October 2019 revealed interval increase in size of the soft tissue mass/density posterior to the right mainstem bronchus measuring 2.3 x 1.7 cm. Previously it was noted to be 2.1 x 1.2 cm. There was no CT evidence of progressive adenopathy. Patient underwent a bronchoscopy in October 2019. He was noted to have slight inward bulging of the posterior wall of the right middle lobe bronchus and bronchus intermedius without any compromise to luminal patency. This corresponded to the site of the right lower lobe lesion on imaging. Bronchial mucosa and anatomy were otherwise normal. There were no endobronchial lesions and no secretions. He underwent EBUS and TB NA of the right lower lobe lung nodule and cytology was positive for malignant cells. Pathology demonstrated non-small cell carcinoma favoring adenocarcinoma. Molecular telephone directory distributor driver mutations were all negative. Repeat PET/CT 11/17/2019 revealed mild uptake in the right lung nodule with a max SUV of 2.5. There was no other suspicious uptake. Brain MRI 11/04/2019 revealed no brain metastases. Patient underwent SBRT for local hilar recurrence versus new primary right lower lobe lung cancer. Was completed 2019. Patient had a surveillance CT of the chest on 01/06/2021. That study showed extensive postsurgical change and scarring from right upper lobectomy. There was paramedian fibrosis and bronchiectasis on the right which was noted previously. There was a right subcentimeter mid lung field nodule which was unchanged. No new nodules were observed. No enlarged lymph nodes were observed. There was marked deformity of the right mainstem bronchus. 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 Patient has had a persistent cough predating radiation last year. It is a constant nagging cough triggered by deep breath and particularly bothersome at nighttime. If he has sputum production, it is nonpurulent typically clear to whitish in color. He is not had hemoptysis. No chest pain. He is not able to use his CPAP machine properly because of the cough. Some nights he has to sit on the side of the bed waiting an hour or 2 for paroxysm of cough to settle down. He has tried multiple interventions for the cough including Tessalon Perles and multiple codeine and Hycodan-based cough syrups which did not help. Underwent bronchoscopy 05/18/2021. Airway examination of the left lung was normal. There was extrinsic compression observed in the bronchus intermedius. Lymph node sizing and sampling was performed. EBUS TB NA was performed at lymph node station 7. Rapid onsite evaluation preliminary cytology suggested malignancy and level 7 lymph node. Pathology: FINAL DIAGNOSIS A. BRONCHIAL, #22 EBUS TBNA STATION 7, FINE NEEDLE ASPIRATE (THINPREP, SMEARS AND CELL BLOCK) Positive for malignant cells. Adenocarcinoma. Previous therapy: 1) Abraxane, carboplatin and Keytruda. Current therapy: 1) Pembrolizumab. Treatment has been on hold d/t ?radiation/immunotherapy pneumonitis. Last treatment 10/30/21. No new concerns today. Pt. was seen by Pulm on 12/11/21-Pt. to continue prednisone 10mg daily. Cough improved. Appetite: Good. Energy level: Good. Golfing a few days per week. Denies fevers. Mouth:denies sores Resp:dry cough 1-2 twice per day-improved, denies sob Cardiac:denies chest pain/palpitations GI:denies abd pain, n/v, moving bowels regularly :denies dysuria/hematuria although recent urgency Extrem:denies pain Skin:denies rashes Heme:denies bleeding The ROS is otherwise negative. Past medical history, appointments, medications, allergies reviewed. No changes. EXAM: BP 122/86 Pulse 86 Temp 36.7 C (98.1 F) Wt 100.7 kg (222 lb) SpO2 95% BMI 27.75 kg/m APPEARANCE Well appearing, alert, in no acute distress, well-hydrated, well nourished. HEART RRR with normal S1 and S2, no murmurs LUNG clear to auscultation LYMPH NODES No cervical lymphadenopathy, No supraclavicular lymphadenopathy and No axillary lymphadenopathy. ABDOMEN bowel sounds normoactive, soft, non-tender, non-distended, without organomegaly or palpable masses EXTREMITIES trace edema BLE NEURO Awake, alert and oriented x 3, Normal gait and No involuntary motions. SKIN Skin color, texture, turgor normal, no suspicious rashes or lesions LABS: Pending ASSESSMENT/PLAN: 1. 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) - ICD9: 162.3, ICD10: C34.11 pT3 N0 MX (greater than 7 cm adenocarcinoma) stage 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 Patient received SBRT for local recurrence of disease. Recent PET scan in conjunction with biopsy of subcarinal lymph node demonstrate recurrent disease. - Cough r/t ?radiation/immunotherapy pneumonitis. Improving with prednisone. - Labs pending. - Continue current medications. - Continue follow up with PULM. - Proceed with keytruda on pending all labs. - Follow up with Dr. Noble when next cycle is due with CBC/CMP/TSH/Cortisol/Mag. - Pt. aware to call office with any questions/concerns. The patient indicates understanding of these issues and agrees with the plan. Discussed case with Dr. Noble who agrees with treatment plan. All documentation from previous visit of 12/08/21-Dr. Noble/myself was copied and pasted, documentation has been reviewed and edited as necessary for today's visit. Xuan Lora APRN.[place] documented in this encounter [facility] 12-13-2021 History of Present illness Narrative Radiology Service Progress Note PATIENT NAME: Checo Johnson DATE OF SERVICE: December 13, 2021 TIME: 4:03 PM PATIENT IDENTITY VERIFICATION COMPLETED USING TWO (2) IDENTIFIERS: Name and Date of confirmed by patient verbally. FALL SCREENING: Has the patient had 2 falls in the last year or 1 fall with injury or currently using an Ambulatory Assistive Device (Walker, Cane, Wheelchair, Crutches, etc.)? No PATIENT GENDER DATA: Male PATIENT RELEVANT IMPLANT DATA REVIEWED: Not Applicable RADIOLOGY DEPARTMENT: CT; Exam(s) Completed: Chest PERIPHERAL IV DATA: Not applicable SIGNED BY: RT Guerrero(R) December 13, 2021 4:03 PM documented in this encounter [facility] 12-11-2021 History of Present illness Narrative Images from the original note were not included. . [facility] [place] Note Patient name: Checo Johnson PCP: David Chandler MD CC: pulmonary toxicity due to chemotherapy HPI: Checo Johnson 75 year old male former smoker with PMH significant for multiple cancers including renal cell, bladder, and lung cancer. First diagnosed with moderately differentiated invasive adenocarcinoma of RUL s/p lobectomy 2017 (surgical staging T3, N0, M0), adjuvant chemo carboplatin/paclitaxel. In 2019 had new soft tissue density in right hilum, EBUS/TBNA positive for adenocarcinoma, s/p SBRT 12/2019, Abraxane/carboplatin/Keytruda. Recent issues with progressive GGO. S/p recent bronchoscopy with TBBx, no evidence of recurrent cancer, only evidence of inflammation and no infection. However, PJP PCR on BAL not performed, mishandled by lab. Ordered sputum culture for PJP but patient unable to expectorate phlegm. Main symptom has been severe cough. Keytruda on hold and started on high dose steroids for possible immune therapy pulmonary toxicity. Currently on 30 mg a day. He states he has been doing well. Cough has improved tremendously. Still has some cough when he lies down at night. Difficulty sleeping on high-dose steroids. Fatigue improved. No current chest pain, sputum production, wheezing, dyspnea. Most recent laboratory testing pertinent for leukocytosis. He denies any fevers, night sweats or chilling. DATA: Labs: Component Ref Range & Units 3 d ago (12/08/21) Cortisol 4.8 - 19.5 ug/dL 3.8 Low Component Ref Range & Units 3 d ago (12/08/21) Protein, Total 6.3 - 8.0 g/dL 6.3 Albumin 3.9 - 4.9 g/dL 3.7 Low Calcium, Total 8.5 - 10.2 mg/dL 8.4 Low Bilirubin, Total 0.2 - 1.3 mg/dL 0.3 Alkaline Phosphatase 38 - 113 U/L 71 AST 14 - 40 U/L 31 ALT 10 - 54 U/L 44 Glucose 74 - 99 mg/dL 93 Component Ref Range & Units 3 d ago (12/08/21) WBC 3.70 - 11.00 k/uL 11.13 High RBC 4.20 - 6.00 m/uL 4.76 Hemoglobin 13.0 - 17.0 g/dL 14.0 Hematocrit 39.0 - 51.0 % 43.5 MCV 80.0 - 100.0 fL 91.4 MCH 26.0 - 34.0 pg 29.4 MCHC 30.5 - 36.0 g/dL 32.2 RDW-CV 11.5 - 15.0 % 15.8 High Platelet Count 150 - 400 k/uL 140 Low MPV 9.0 - 12.7 fL 10.5 NRBC /100 WBC 0.0 Absolute nRBC <0.01 k/uL <0.01 Neut% % 89.0 Abs Neut (Segs + Bands) 1.45 - 7.50 k/uL 9.91 High Lymph% % 5.0 Abs Lymph (Normal + Reactive) 1.00 - 4.00 k/uL 0.56 Low [place]% % 2.0 Abs [place] <0.87 k/uL 0.22 Eosin% % 0.0 Abs Eosin <0.46 k/uL 0.00 Baso% % 0.0 Abs Baso <0.11 k/uL 0.00 [place] % % 2.0 Myelo % % 2.0 Platelet Estimate Decreased BUN 9 - 24 mg/dL 33 High Creatinine 0.73 - 1.22 mg/dL 1.61 High Sodium 136 - 144 mmol/L 137 Potassium 3.7 - 5.1 mmol/L 4.2 Chloride 97 - 105 mmol/L 104 CO2 22 - 30 mmol/L 24 Anion Gap 9 - 18 mmol/L 9 Estimated Glomerular Filtration Rate >=60 mL/min/1.73m 44 Low Imaging / Diagnostic Studies: Chest CT 10/19/21: IMPRESSION: Progression of RIGHT lung airspace disease with small areas of improvement. Development of irregular multifocal RIGHT lung airspace disease. Findings atypical for radiation fibrosis given relatively extensive post exchange manager the LEFT 2 months, one and half years following completion of radiation therapy. Multifocal infection and recurrent neoplasm are considerations. Predominance of RIGHT-sided findings are atypical for bronchiolitis obliterans. Limited assessment RIGHT hilum. Recurrent neoplasm cannot be excluded. Mild adenopathy similar to prior study. Stable small nodules LEFT lung base. I personally reviewed images and agree with the above assessment. Pending repeat CT on PAST MEDICAL HISTORY Diagnosis Date Bladder cancer (HCC) Chronic kidney disease COPD (chronic obstructive pulmonary disease) (HCC) Gout Hypercholesterolemia Hypogonadism in male Lung cancer (HCC) Renal cancer (HCC) Shingles 2021 Skin cancer Sleep apnea ALLERGIES No Known Allergies predniSONE (DELTASONE) 20 mg tablet Take three daily for one week, then 2.5 daily for one week, 2 daily for one week, the 1.5 daily for one week then one daily sulfamethoxazole-trimethoprim (BACTRIM DS) 800-160 mg per tablet Take 1 tablet by mouth three times a week. FOR 3 DAYS. clotrimazole (MYCELEX) 10 mg wicho One lozenge dailyr cyanocobalamin, vitamin B-12, (VITAMIN B-12 INJECTION) by INJECTION(UNSPECIFIED PARENTERAL ROUTES) route every 2 weeks. MEDICATION, NON-DATABASE immunotherapy famotidine (PEPCID) 40 mg tablet Take 1 tablet by mouth once daily. guaifenesin (MUCINEX ORAL) Take 2 tablets by mouth once daily. As needed loratadine (CLARITIN) 10 mg tablet Take 10 mg by mouth once daily. ondansetron (ZOFRAN) 8 mg tablet Take 1 tablet by mouth every 8 hours as needed for nausea/vomiting. fluticasone propionate (FLONASE NASAL) Use 2 Sprays in the nose once daily. doxepin capsule 25 mg Take 25 mg by mouth daily at bedtime. albuterol HFA (PROVENTIL HFA, VENTOLIN HFA) 90 mcg/actuation inhaler Inhale 2 Puffs as instructed four times daily as needed. acetaminophen (TYLENOL EXTRA STRENGTH) 500 mg tablet Take 500 mg by mouth as needed. febuxostat (ULORIC) 40 mg tab Take 40 mg by mouth once daily. testosterone cypionate (DEPO-TESTOSTERONE) 100 mg/mL injection One IM injection twice monthly. pramipexole (MIRAPEX) 0.5 mg tablet Take two tablets by mouth twice daily. Social History Tobacco Use Smoking status: Former Smoker Packs/day: 1.00 Years: 30.00 Pack years: 30.00 Types: Cigarettes Quit date: 09/24/1996 Years since quittin.2 Smokeless tobacco: Never Used Vaping Use Vaping Use: Never used Substance Use Topics Alcohol use: Yes Alcohol/week: 4.0 standard drinks Types: 4 Glasses of Wine (5oz) per week Comment: occassionally/ social Drug use: No PMH, Social history, family history and surgical history reviewed and updated in EMR REVIEW OF SYSTEMS: CONSTITUTIONAL: No fevers, chills, nightsweats, unintended weight loss. Improved energy but difficulty sleeping HEENT: Denies headaches, nasal congestion/sinus symptoms EYES: No diplopia or blurry vision. CARDIOVASCULAR: No chest pain, dyspnea, palpitations. Lower extremity edema PULM: See HPI GI: Dyspepsia or abdominal pain NEURO: No new balance problems, peripheral weakness/paresthesias or numbness of concern. MUSC-SKEL: No new joint pain, swelling, or erythema. PSY: No concerns regarding depression, anxiety INTEGUMENTARY: No new skin changes easy bruising PHYSICAL EXAMINATION: BP 145/85 Pulse 95 Resp 18 Ht 6' 3 (1.91m) Wt 226 lb 9.6 oz (102.8kg) SpO2 96% BMI 28.32 kg/(m^2). General Appearance: Age appropriate male, NAD Skin: Skin color, texture, turgor normal, no suspicious rashes or lesions. Head: Normocephalic, no masses, lesions, tenderness or abnormalities. Eyes: Sclera, conjunctiva normal Oropharynx: No stomatitis or thrush Neck: No JVD, no masses, no adenopathy Lungs: Not labored, normal to percussion, no crackles Heart: RRR, no murmur Extremities: Ankle edema, no clubbing Assessment/Plan: 1. 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 Current use of systemic steroids -No significant toxicity or severe side effects -Glucose normal. Mild leukocytosis 3. Malignant neoplasm right upper lobe of the lung -Active treatment plan per oncology. Keytruda on hold 4. Leukocytosis -See #2 Margarita Collins MD [facility] [place] documented in this encounter [facility] 12-08-2021 Miscellaneous Notes verified pt. Received message from Xuan and voiced understanding. Betty Jaimes LPN Discussed plan with Dr. Noble. Cancel Keytruda on Saturday. Follow up with Dr. Collins as scheduled. Attempted to call pt. to inform him. Left message on VM. Please call pt. again to verify that he received my message. Follow up as scheduled otherwise. Thank you. Xuan Lora APRN.[place] documented in this encounter [facility] 12-08-2021 History of Present illness Narrative Chief Complaint Patient presents with: Established Patient HPI: Checo Johnson is a 75 year old male who presents here today for evaluation for treatment on Saturday. Per Dr. Noble's previous note: H/o RCC (right nephrectomy at [facility] 2003; followed up with Dr. Hernandez), superficial bladder cancer, LUIS CARLOS (underwent uvulopalatopharyngoplasty by Dr. Aguilera), COPD and gout. He had been under the care of [...] an SUV of 2 for that lesion. Patient underwent a CT chest on 05/07/2016. The inhomogeneous soft tissue density in the posterior medial segment of the right upper lobe was not noted to change in size and measured 3.6 x 3.8 x 4.8 cm. Patient was referred to a thoracic surgeon at [facility]. He ultimately underwent a right thoracotomy with right upper lobe wedge resection and immediate right upper lobectomy along with mediastinal lymphadenectomy on 08/14/2016. The final pathology demonstrated within the wedge [...] sections. Final pathologic staging was pT3 N0. Previous therapy: 1) Adjuvant carbo/paclitaxel completed 01/2017. He had a surveillance CT of the chest in June 2018 which showed stable 4 mm nodules in the right lung. A subsequent surveillance CT chest December 2018 revealed stable findings. However in June 2019 CT scan showed mild enlargement of soft tissue density in the right hilum/suprahilar region. This was thought to potentially represent recurrent disease. It measured 2.4 x 1.3 cm versus 1.4 x 1.[address] was obtained on 07/07/2019 and it demonstrated only slight FDG avidity corresponding to the right hilar/suprahilar enlarging soft tissue density with a max SUV of 3.0. A follow-up CT chest in October 2019 revealed interval increase in size of the soft tissue mass/density posterior to the right mainstem bronchus measuring 2.3 x 1.7 cm. Previously it was noted to be 2.1 x 1.2 cm. There was no CT evidence of progressive adenopathy. Patient underwent a bronchoscopy in October 2019. He was noted to have slight inward bulging of the posterior wall of the right middle lobe bronchus and bronchus intermedius without any compromise to luminal patency. This corresponded to the site of the right lower lobe lesion on imaging. Bronchial mucosa and anatomy were otherwise normal. There were no endobronchial lesions and no secretions. He underwent EBUS and TB NA of the right lower lobe lung nodule and cytology was positive for malignant cells. Pathology demonstrated non-small cell carcinoma favoring adenocarcinoma. Molecular telephone directory distributor driver mutations were all negative. Repeat PET/CT 11/17/2019 revealed mild uptake in the right lung nodule with a max SUV of 2.5. There was no other suspicious uptake. Brain MRI 11/04/2019 revealed no brain metastases. Patient underwent SBRT for local hilar recurrence versus new primary right lower lobe lung cancer. Was completed 2019. Patient had a surveillance CT of the chest on 01/06/2021. That study showed extensive postsurgical change and scarring from right upper lobectomy. There was paramedian fibrosis and bronchiectasis on the right which was noted previously. There was a right subcentimeter mid lung field nodule which was unchanged. No new nodules were observed. No enlarged lymph nodes were observed. There was marked deformity of the right mainstem bronchus. 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 Patient has had a persistent cough predating radiation last year. It is a constant nagging cough triggered by deep breath and particularly bothersome at nighttime. If he has sputum production, it is nonpurulent typically clear to whitish in color. He is not had hemoptysis. No chest pain. He is not able to use his CPAP machine properly because of the cough. Some nights he has to sit on the side of the bed waiting an hour or 2 for paroxysm of cough to settle down. He has tried multiple interventions for the cough including Tessalon Perles and multiple codeine and Hycodan-based cough syrups which did not help. Underwent bronchoscopy 05/18/2021. Airway examination of the left lung was normal. There was extrinsic compression observed in the bronchus intermedius. Lymph node sizing and sampling was performed. EBUS TB NA was performed at lymph node station 7. Rapid onsite evaluation preliminary cytology suggested malignancy and level 7 lymph node. Pathology: FINAL DIAGNOSIS A. BRONCHIAL, #22 EBUS TBNA STATION 7, FINE NEEDLE ASPIRATE (THINPREP, SMEARS AND CELL BLOCK) Positive for malignant cells. Adenocarcinoma. Previous therapy: 1) Abraxane, carboplatin and Keytruda. Current therapy: 1) Pembrolizumab. Cough improved with prednisone taper per Pulm. Seeing Pulm on Saturday. Scheduled for keytruda Saturday. Keytruda held 11/20/21 d/t cough. Appetite: Good. Energy level: About a 6. Denies fevers. Mouth:denies sores Resp:dry cough 1-2 twice per day-improved, denies sob Cardiac:denies chest pain/palpitations GI:denies abd pain, n/v, moving bowels regularly :denies dysuria/hematuria although recent urgency Extrem:denies pain Skin:denies rashes Heme:denies bleeding The ROS is otherwise negative. Past medical history, appointments, medications, allergies reviewed. No changes. EXAM: BP 135/88 Pulse 86 Temp 36.6 C (97.9 F) (Temporal) Wt 102.7 kg (226 lb 8 oz) SpO2 98% BMI 27.94 kg/m APPEARANCE Well appearing, alert, in no acute distress, well-hydrated, well nourished. HEART RRR with normal S1 and S2, no murmurs LUNG clear to auscultation LYMPH NODES No cervical lymphadenopathy, No supraclavicular lymphadenopathy and No axillary lymphadenopathy. ABDOMEN bowel sounds normoactive, soft, non-tender, non-distended, without organomegaly or palpable masses EXTREMITIES BLE edema NEURO Awake, alert and oriented x 3, Normal gait and No involuntary motions. SKIN Skin color, texture, turgor normal, no suspicious rashes or lesions LABS: Component Latest Ref Rng & Units 10/27/2021 11/15/2021 12/08/2021 WBC 3.70 - 11.00 k/uL 7.76 6.73 11.13 (H) RBC 4.20 - 6.00 m/uL 4.49 4.49 4.76 Hemoglobin 13.0 - 17.0 g/dL 13.6 13.1 14.0 Hematocrit 39.0 - 51.0 % 41.9 41.1 43.5 MCV 80.0 - 100.0 fL 93.3 91.5 91.4 MCH 26.0 - 34.0 pg 30.3 29.2 29.4 MCHC 30.5 - 36.0 g/dL 32.5 31.9 32.2 RDW-CV 11.5 - 15.0 % 14.7 14.3 15.8 (H) Platelet Count 150 - 400 k/uL 237 281 140 (L) MPV 9.0 - 12.7 fL 9.6 9.0 10.5 NRBC /100 WBC 0.0 0.0 Absolute nRBC <0.01 k/uL <0.01 <0.01 Neut% % 78.0 76.8 Abs Neut (ANC) 1.45 - 7.50 k/uL 6.05 5.17 Lymph% % 11.0 7.9 Abs Lymph 1.00 - 4.00 k/uL 0.85 (L) 0.53 (L) [place]% % 8.0 8.3 Abs [place] <0.87 k/uL 0.62 0.56 Eosin% % 1.0 4.3 Abs Eosin <0.46 k/uL 0.08 0.29 Baso% % 1.0 0.9 Abs Baso <0.11 k/uL 0.08 0.06 [place]% % 0.0 Bands % % 0.0 [place]% % 1.0 Myelo% % 0.0 Promyl% % 0.0 Blast <=0.0 % 0.0 Lymphoma Cell % 0.0 Prolymph % % 0.0 Plasma Cells % 0.0 Megakaryocytic Frag /100 WBC 0.0 Other Cells % 0.0 Platelet Estimate Adequate Red Cell Morph Reviewed Ovalocytes Few DTYPE Manual Auto Immature Gran % % 1.8 IMMATURE GRANS (ABS) <0.10 k/uL 0.12 (H) Component Latest Ref Rng & Units 11/15/2021 12/08/2021 Protein, Total 6.3 - 8.0 g/dL 7.0 6.3 Albumin 3.9 - 4.9 g/dL 3.6 (L) 3.7 (L) Calcium 8.5 - 10.2 mg/dL 8.8 8.4 (L) Bilirubin, Total 0.2 - 1.3 mg/dL 0.3 0.3 Alkaline Phosphatase 38 - 113 U/L 96 71 AST 14 - 40 U/L 19 31 ALT 10 - 54 U/L 17 44 Glucose 74 - 99 mg/dL 97 93 BUN 9 - 24 mg/dL 24 33 (H) Creatinine 0.73 - 1.22 mg/dL 1.81 (H) 1.61 (H) Sodium 136 - 144 mmol/L 136 137 Potassium 3.7 - 5.1 mmol/L 4.6 4.2 Chloride 97 - 105 mmol/L 99 104 CO2 22 - 30 mmol/L 28 24 Anion Gap 9 - 18 mmol/L 9 9 eGFR >=60 mL/min/1.73m 39 (L) 44 (L) TSH/Cortisol: Pending ASSESSMENT/PLAN: 1. 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) - ICD9: 162.3, ICD10: C34.11 (primary diagnosis) pT3 N0 MX (greater than 7 cm adenocarcinoma) stage 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 Patient received SBRT for local recurrence of disease. Recent PET scan in conjunction with biopsy of subcarinal lymph node demonstrate recurrent disease. - Keytruda on hold d/t ?radiation/immunotherapy pneumonitis. - Reviewed CBC/CMP with pt. - TSH/Cortisol pending. - Continue prednisone taper per Pulm. - Follow up with Pulm as scheduled on Saturday. Next CT chest per Pulm. - UA/Culture today. - Cancel Keytruda on Saturday. Plan to resume once symptoms resolved. - Follow up as scheduled otherwise. - Pt. aware to call office with any questions/concerns. The patient indicates understanding of these issues and agrees with the plan. Discussed case with Dr. Noble who agrees with treatment plan. All documentation from previous visit of 11/15/21-Dr. Noble was copied and pasted, documentation has been reviewed and edited as necessary for today's visit. Xuan Lora APRN.[place] documented in this encounter [facility] 12-07-2021 Miscellaneous Notes Pt returned call. Relayed message and confirmed appt date/time. Left message for patient to return call. When patient calls, please advise him that he will be seeing Xuan Lora instead of Dr. Noble As Dr. Noble needs to see an urgent appointment. Once relayed, document and close this note. Angie Brito documented in this encounter [facility] 11-20-2021 History of Present illness Narrative Images from the original note were not included. . [facility] [place] Note Patient name: Checo Johnson PCP: David Chandler MD CC: follow-up bronchoscopy Note: Part of following note carried forward from my OV 09/15/21 HPI: Checo Johnson 75 year old male former smoker with PMH significant for renal cell carcinoma, bladder cancer, LUIS CARLOS, mild COPD and lung cancer. Having issues with chronic cough and predominantly right sided ground glass infiltrates. Cancer history dates back to 2011 when he was first noted to have a right upper lobe, approximately 3 x [address] in 2014 showed progression in size, PET scan with low-level activity. 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 Final pathologic stage T3 N0 M0. Treated with carboplatin and paclitaxel, completing therapy in January 2017. Surveillance chest CT in June 2019 showed enlarged soft tissue density in the right hilum with maximum PET uptake SUV 3.0. Follow-up CT in October 2019 showed increase in soft tissue density. Subsequent bronchoscopy pertinent for extrinsic compression of the posterior wall of right middle lobe bronchus and bronchus intermedius without endobronchial tumor. EBUS/TBNA positive for adenocarcinoma. Restaging negative for metastatic disease. Status post SBRT to hilum 12/2019, and chemotherapy consisting of Abraxane/carboplatin and Keytruda. Currently on maintenance Keytruda. Worsening of his infiltrates despite antibiotics. S/p bronchoscopy with BAL and transbronchial biopsy. No evidence of recurrence of cancer and transbronchial biopsy consistent with inflammatory process, noninfectious. Unfortunately laboratory did not properly handle BAL specimen for PJP PCR. Unable to add on testing to BAL sample. Patient continues to have severe coughing jags, worse at night when lying supine. Patient will phlegm production. No significant chest pain, shortness of breath, fevers, chills. No wheezing. No intervention has helped his cough. At the time of his bronchoscopy, he had significant posterior pharyngeal thrush. DATA: Labs: Component Ref Range & Units 8 d ago CD3+ T Cell % % 95 CD3+CD4+ T Cell % % 20 CD3+CD8+ T Cell % % 75 CD3+CD4+/CD3+CD8+ Ratio <=3.50 <0.35 FINAL DIAGNOSIS A. Lung, right middle lobe, transbronchial biopsy: - Mild chronic inflammation and few airspace macrophages (See comment). Diagnosis Comment This biopsy consists of 3 fragments of alveolated lung parenchyma and attached airway wall. There is mild chronic inflammation composed mainly of lymphocytes. A few airspaces contain foamy macrophages. A single multinucleated giant cell is present. No malignant cells are identified. Component Ref Range & Units 8 d ago Diff Total, BAL cells counted 100 Lymph%, BAL % 74 [place]%, BAL % 7 Macro%, BAL % 14 Eosin%, BAL % 5 Component Ref Range & Units 8 d ago ASPER. AG BAL,QUAL Negative Negative Component FINAL DIAGNOSIS A - BRONCHOALVEOLAR LAVAGE - RIGHT MIDDLE LOBE Negative for malignant cells. Cultures negative Imaging / Diagnostic Studies: CHEST CT 10/19/21 IMPRESSION: Progression of RIGHT lung airspace disease with small areas of improvement. Development of irregular multifocal RIGHT lung airspace disease. Findings atypical for radiation fibrosis given relatively extensive post exchange manager the LEFT 2 months, one and half years following completion of radiation therapy. Multifocal infection and recurrent neoplasm are considerations. Predominance of RIGHT-sided findings are atypical for bronchiolitis obliterans. Limited assessment RIGHT hilum. Recurrent neoplasm cannot be excluded. Mild adenopathy similar to prior study. Stable small nodules LEFT lung base. I personally reviewed images and agree with the above assessment PAST MEDICAL HISTORY Diagnosis Date Bladder cancer (HCC) Chronic kidney disease COPD (chronic obstructive pulmonary disease) (HCC) Gout Hypercholesterolemia Hypogonadism in male Lung cancer (HCC) Renal cancer (HCC) Shingles 2021 Skin cancer Sleep apnea ALLERGIES No Known Allergies HYDROcodone-homatropine (HYCODAN) 5-1.5 mg/5 mL (5 mL) syrup Take 5 mL by mouth every 6 hours as needed for up to 7 days. cyanocobalamin, vitamin B-12, (VITAMIN B-12 INJECTION) by INJECTION(UNSPECIFIED PARENTERAL ROUTES) route every 2 weeks. MEDICATION, NON-DATABASE immunotherapy famotidine (PEPCID) 40 mg tablet Take 1 tablet by mouth once daily. guaifenesin (MUCINEX ORAL) Take 2 tablets by mouth once daily. As needed loratadine (CLARITIN) 10 mg tablet Take 10 mg by mouth once daily. ondansetron (ZOFRAN) 8 mg tablet Take 1 tablet by mouth every 8 hours as needed for nausea/vomiting. fluticasone propionate (FLONASE NASAL) Use 2 Sprays in the nose once daily. doxepin capsule 25 mg Take 25 mg by mouth daily at bedtime. albuterol HFA (PROVENTIL HFA, VENTOLIN HFA) 90 mcg/actuation inhaler Inhale 2 Puffs as instructed four times daily as needed. acetaminophen (TYLENOL EXTRA STRENGTH) 500 mg tablet Take 500 mg by mouth as needed. febuxostat (ULORIC) 40 mg tab Take 40 mg by mouth once daily. testosterone cypionate (DEPO-TESTOSTERONE) 100 mg/mL injection One IM injection twice monthly. pramipexole (MIRAPEX) 0.5 mg tablet Take two tablets by mouth twice daily. predniSONE (DELTASONE) 20 mg tablet Take three daily for one week, then 2.5 daily for one week, 2 daily for one week, the 1.5 daily for one week then one daily sulfamethoxazole-trimethoprim (BACTRIM DS) 800-160 mg per tablet Take 1 tablet by mouth three times a week. FOR 3 DAYS. clotrimazole (MYCELEX) 10 mg wicho One lozenge dailyr acetylcysteine (MUCOMYST) 100 mg/mL (10 %) nebulizer solution Inhale 4 mL as instructed twice daily. Social History Tobacco Use Smoking status: Former Smoker Packs/day: 1.00 Years: 30.00 Pack years: 30.00 Types: Cigarettes Quit date: 09/24/1996 Years since quittin.1 Smokeless tobacco: Never Used Vaping Use Vaping Use: Never used Substance Use Topics Alcohol use: Yes Alcohol/week: 4.0 standard drinks Types: 4 Glasses of Wine (5oz) per week Comment: occassionally/ social Drug use: No PMH, Social history, family history and surgical history reviewed and updated in EMR REVIEW OF SYSTEMS: CONSTITUTIONAL: No fevers, chills, nightsweats, unintended weight loss. Some fatigue HEENT: Denies nasal congestion/sinus symptoms, allergy problems. CARDIOVASCULAR: No chest pain,palpitations, orthopnea, PND, edema. Some BACA PULM: See HPI GI: No dysphagia/odynophagia, problematic reflux, constipation, diarrhea NEURO: No new balance problems, peripheral weakness/paresthesias or numbness of concern. MUSC-SKEL: No new joint pain, swelling, or erythema. PSY: No concerns regarding depression, anxiety INTEGUMENTARY: No new skin changes or rashes PHYSICAL EXAMINATION: BP 128/75 Pulse 95 Temp (Src) 97 (Temporal) Resp 18 Wt 210 lb (95.3kg) SpO2 95% General Appearance: Age-appropriate male no acute distress Skin: Skin color, texture, turgor normal, no suspicious rashes or lesions. Head: Normocephalic, no masses, lesions, tenderness or abnormalities. Eyes: Sclera, conjunctiva normal Oropharynx: Erythematous rash in benitez, no oral lesions or thrush Lungs: Not labored, normal to percussion, vesicular breath sounds right upper lobe, faint crackles left lower lobe Heart: Regular rate and rhythm, no murmurs Extremities: No significant edema, no clubbing Assessment/Plan: 1. Chemotherapy induced pulmonary toxicity -Bronchoscopy did not show evidence of recurrence of his cancer or obvious infection -Started steroids at 60 mg a day with Bactrim for PJP prophylaxis, he is to continue his Pepcid for GI prophylaxis, clotrimazole wicho. Taper of steroids has follows: 60 mg a day for 1 week, 50 mg a day for 1 week, 40 mg a day for 1 week, 30 mg a day for 1 week and 20 mg a day with further taper to be determined -Repeat CT chest 6 weeks -Comprehensive metabolic panel while on high-dose steroids -Provided patient with sputum cup for PJP PCR if able to expectorate phlegm 2. Lung cancer -Active treatment plan per oncology with timing of immunotherapy or continuance of immunotherapy to be determined Margarita Collins MD [facility] [place] documented in this encounter [facility] 11-15-2021 History of Present illness Narrative Diagnosis: 1) NSCLC. HPI: The patient is a 75 yo male with PMH significant for RCC (right nephrectomy at [facility] 2003; followed up with Dr. Hernandez), superficial bladder cancer, LUIS CARLOS (underwent uvulopalatopharyngoplasty by Dr. Aguilera), COPD and gout. He had been under the care of [...] an SUV of 2 for that lesion. Patient underwent a CT chest on 05/07/2016. The inhomogeneous soft tissue density in the posterior medial segment of the right upper lobe was not noted to change in size and measured 3.6 x 3.8 x 4.8 cm. Patient was referred to a thoracic surgeon at [facility]. He ultimately underwent a right thoracotomy with right upper lobe wedge resection and immediate right upper lobectomy along with mediastinal lymphadenectomy on 08/14/2016. The final pathology demonstrated within the wedge [...] sections. Final pathologic staging was pT3 N0. Previous therapy: 1) Adjuvant carbo/paclitaxel completed 01/2017. He had a surveillance CT of the chest in June 2018 which showed stable 4 mm nodules in the right lung. A subsequent surveillance CT chest December 2018 revealed stable findings. However in June 2019 CT scan showed mild enlargement of soft tissue density in the right hilum/suprahilar region. This was thought to potentially represent recurrent disease. It measured 2.4 x 1.3 cm versus 1.4 x 1.[address] was obtained on 07/07/2019 and it demonstrated only slight FDG avidity corresponding to the right hilar/suprahilar enlarging soft tissue density with a max SUV of 3.0. A follow-up CT chest in October 2019 revealed interval increase in size of the soft tissue mass/density posterior to the right mainstem bronchus measuring 2.3 x 1.7 cm. Previously it was noted to be 2.1 x 1.2 cm. There was no CT evidence of progressive adenopathy. Patient underwent a bronchoscopy in October 2019. He was noted to have slight inward bulging of the posterior wall of the right middle lobe bronchus and bronchus intermedius without any compromise to luminal patency. This corresponded to the site of the right lower lobe lesion on imaging. Bronchial mucosa and anatomy were otherwise normal. There were no endobronchial lesions and no secretions. He underwent EBUS and TB NA of the right lower lobe lung nodule and cytology was positive for malignant cells. Pathology demonstrated non-small cell carcinoma favoring adenocarcinoma. Molecular telephone directory distributor driver mutations were all negative. Repeat PET/CT 11/17/2019 revealed mild uptake in the right lung nodule with a max SUV of 2.5. There was no other suspicious uptake. Brain MRI 11/04/2019 revealed no brain metastases. Patient underwent SBRT for local hilar recurrence versus new primary right lower lobe lung cancer. Was completed 2019. Patient had a surveillance CT of the chest on 01/06/2021. That study showed extensive postsurgical change and scarring from right upper lobectomy. There was paramedian fibrosis and bronchiectasis on the right which was noted previously. There was a right subcentimeter mid lung field nodule which was unchanged. No new nodules were observed. No enlarged lymph nodes were observed. There was marked deformity of the right mainstem bronchus. 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 Patient has had a persistent cough predating radiation last year. It is a constant nagging cough triggered by deep breath and particularly bothersome at nighttime. If he has sputum production, it is nonpurulent typically clear to whitish in color. He is not had hemoptysis. No chest pain. He is not able to use his CPAP machine properly because of the cough. Some nights he has to sit on the side of the bed waiting an hour or 2 for paroxysm of cough to settle down. He has tried multiple interventions for the cough including Tessalon Perles and multiple codeine and Hycodan-based cough syrups which did not help. Underwent bronchoscopy 05/18/2021. Airway examination of the left lung was normal. There was extrinsic compression observed in the bronchus intermedius. Lymph node sizing and sampling was performed. EBUS TB NA was performed at lymph node station 7. Rapid onsite evaluation preliminary cytology suggested malignancy and level 7 lymph node. Pathology: FINAL DIAGNOSIS A. BRONCHIAL, #22 EBUS TBNA STATION 7, FINE NEEDLE ASPIRATE (THINPREP, SMEARS AND CELL BLOCK) Positive for malignant cells. Adenocarcinoma. Previous therapy: 1) Abraxane, carboplatin and Keytruda. Current therapy: 1) Pembrolizumab. Presents for ongoing oncologic management. Interim history: Underwent bronchoscopy last week. No evidence of malignancy. Most all cultures negative thus far. PCP pending. He is. Now more triggered by deep breath. Rarely productive of sputum. Particularly bothersome at nighttime. He is not any more short of breath at rest or with exertion than he had been. PMH, medications and allergies as below personally reviewed by me today. Any changes documented in appropriate section. ROS: Constitutional: No episode of fever, night sweats or loss of appetite. Neuro: Denies SAAB, vertigo, dizziness and imbalance. HEENT: No recent change in voice, vision or hearing. Resp: See above. CVS: Denies exertional chest pain, PND, orthopnea and LE edema. GI: Denies dysgeusia. Denies symptoms of stomatitis. Denies dysphagia and odynophagia. Denies reflux, n/v, change in bowel habits and abdominal pain. : Denies dysuria or gross hematuria. No symptoms of bladder outlet obstruction. Endo: Denies hot flashes. Denies polyuria and polydipsia. Denies heat and cold intolerance. Musculoskeletal: Denies bone, back, joint and muscular pain. Derm: Denies rash. Denies jaundice and diffuse pruritis. Heme: Denies unusual bleeding and unexplained bruising. Psych: Normal mood. PHYSICAL EXAM: Vitals: Blood pressure 111/77, pulse 88, temperature 36.8 C (98.2 F), weight 96.4 kg (212 lb 8 oz), SpO2 94 %. Well-appearing and in no acute distress. EYES: Sclerae are anicteric bilaterally. NECK: Supple. No enlargement of thyroid. LYMPHATIC: There is no palpable cervical, supraclavicular, axillary or inguinal adenopathy. RESPIRATORY: Inspiratory breath sounds are coarse on right side and remain clear throughout left. CARDIOVASCULAR: Rhythm is regular. ABDOMEN: The abdomen is nondistended. No organomegaly. No tenderness. Extremities: No swelling or edema. SKIN: No jaundice or rash. NEUROLOGIC: metal grader II-XII are grossly intact. MUSCULOSKELETAL: No joint swelling or tenderness. No muscle wasting. 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 -Patient received SBRT for local recurrence of disease. -Recent PET scan in conjunction with biopsy of subcarinal lymph node demonstrate recurrent disease. -PDL-1 1%. -ALK rearrangement not detected. -BRAF - A sequence change: [id number] [[id number] ([id number])]. Not V600E mutation. -EGFR -No variant detected. -HER2 (ERBB2) - No variant detected. -KRAS - No variant detected. -MET - No variant detected. 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 Plan: -Hold pembrolizumab. -Agree with steroids if PCP pneumonia ruled out. -He has follow-up with Dr. Collins next week. -Office visit on 12/08. -I will communicate my impression to Dr. Collins. Portions of this documentation were copied and pasted from previous office visit notes in order to provide a cohesive continuity of the history. The note has been reviewed and edited and updated as necessary. During this patient visit I have spent approximately 15 minutes out of 25 in counseling regarding treatment options, medications and test results and coordinating care. Dave Noble DO documented in this encounter [facility] 11-10-2021 Miscellaneous Notes Spoke with patient regarding preliminary results of his bronchoscopy. Transbronchial biopsy did not show malignant cells and cytology on washing was negative. Biopsy and BAL consistent with an inflammatory process with high percentage of lymphocytes concerning for immunotherapy induced lung toxicity. Will need steroids but awaiting culture data. documented in this encounter [facility] 11-03-2021 Instructions Regine Jim APRN.OIL PIPE INSPECTOR - 11/03/2021 9:59 AM EDT PATIENT PREOPERATIVE INSTRUCTIONS Margarita Collins MD has scheduled you for your procedure at this surgery center: [facility]: [phone] -- [address] [address]. Please read below carefully for your personalized instructions. Dietary Restrictions: - No solid food after midnight. - You may have 12 ounces of clear liquids (water, clear juices such as apple juice or gatorade, carbonated beverages, clear tea, black coffee, jello) until 2 hours before scheduled arrival at facility. No red/purple coloring and no creamer/sugar Medications: Unless instructed differently below, stay on all of your medications until your surgery. Approved medications to take the morning of surgery with a sip of water: Albuterol, Famotidine, Loratadine If you take any medications for erectile dysfunction-Cialis (Tadalafil), Levitra, Staxyn (Vardenafil) Viagra (Sildenenafil please do not take these for 48 hours before surgery. If you start any new medications after today's visit, please contact the surgeon's office. Blood Thinning Medications: - Stop NSAIDS (Ibuprofen, Advil, Aleve, Motrin, Celebrex, Mobic, etc.) 7 days before surgery, as directed by your surgeon. - Stop Aspirin 7 days before surgery, as directed by your surgeon. - Stop Vitamin E, ALL multi-vitamins, herbals and dietary supplements 7 days before surgery. - You may take Tylenol (Acetaminophen) or any of your pain medications that do not contain aspirin or NSAIDS as needed. Important Reminders: - If you use CPAP/BIPAP, bring the machine with you to the surgery center. - If you are prescribed inhalers for breathing, continue using them. - Candy, mints, and tobacco products are NOT permitted the morning of surgery. - Hearing aids, dentures and glasses may be worn the morning of surgery. - NO jewelry, body piercings, makeup, hairpins or contacts are to be worn the day of surgery. If you develop symptoms such as a fever, cold, or flu, or have other changes to your health within TWO DAYS of scheduled surgery or the morning of surgery, please contact the surgery center above. Personal Belongings: -Please have photo ID and insurance cards. -If you do not have a copy of advance directives on file with us, please bring a copy with you on the day of surgery. - Leave ALL valuables and money at home or with family members. For Outpatient Procedures: - YOU MUST HAVE A RESPONSIBLE FUMIGATOR AND STERILIZER TAKE YOU HOME. A SENIOR WEB ANALYST OR NUTRITION SPECIALIST CANNOT BE MADE A RESPONSIBLE FUMIGATOR AND STERILIZER. - We recommend that a responsible person stays with you overnight to take care of you. - You cannot stay in a hotel alone after outpatient surgery. You will not be permitted to have your surgery, if you do not have someone to take care of you. Arrival Time for Surgery: - The Surgery Center or hospital where you are having surgery will call the afternoon before surgery (or Saturday for Saturday surgery) with a scheduled arrival time. - If you have not heard by 4 pm, please contact the surgery center above. Please be aware that emergency situations arise, which may delay or change your surgical time. If this happens, we will notify you as soon as possible and regret any inconvenience. If you already have an Advance Directive, please fax a copy to [phone] or email to for it to be added to your chart. If you do not have an Advance Directive, you can find the appropriate form and more information at [email or web address]. We recommend that you complete the Advance Directive form found on the website and bring it with you the day of your surgery. It can be witnessed and scanned into your chart that day. Regine Jim APRN.CNP documented in this encounter [facility] 11-03-2021 History and physical note Images from the original note were not included. HISTORY AND PHYSICAL EXAMINATION SERVICE DATE: 11/03/2021 SERVICE TIME: 9:55 AM PRIMARY CARE PHYSICIAN: David Chandler MD REASON FOR VISIT: Checo Johnson is a 75 year old male who is scheduled for Procedure(s): BRONCHOSCOPY FLEXIBLE W/ TRANSBRONCHIAL LUNG BIOPSY(S), W/ FLOURO, SINGLE LOBE (Right) at the request of Dr. Margarita Collins for consultation. My final recommendation will be communicated back to the requesting physician by way of shared medical record or letter. Subjective The patient has the following: ACTIVE PROBLEM LIST Cancer of Upper Lobe of Right Lung (Hcc) Skin Cancer Pulmonary Embolus (Hcc) Abnormal Finding On Lung Imaging Baca (Dyspnea On Exertion) Cough Copd (Chronic Obstructive Pulmonary Disease) (Hcc) Local Recurrence of Cancer of Right Lung (Hcc) Preoperative Examination Megaloblastic Anemia Due to Vitamin B12 Deficiency Dehydration Aci (Adrenal Cortical Insufficiency) (Hcc) Rls (Restless Legs Syndrome) Gerd (Gastroesophageal Reflux Disease) Ckd (Chronic Kidney Disease) Renal Cell Adenocarcinoma (Hcc) Bladder Cancer (Hcc) History of Lumbar Fusion Cancer of Trachea, Bronchus, and Lung (Hcc) Luis Carlos (Obstructive Sleep Apnea) Gout COVID-19 Immunization Status Overdue - COVID-19 VACCINE (4 - Booster for Moderna series) Overdue since 08/24/2021 05/24/2021 Imm Admin: COVID-19 vaccine, full dose (MODERNA) 10/31/2020 Imm Admin: COVID-19 vaccine, full dose (MODERNA) 10/03/2020 Imm Admin: COVID-19 vaccine, full dose (MODERNA) CHIEF COMPLAINT: Pre-op exam HPI: RC is a 75 yo seen for PAC due to scheduled above surgery because of cancer of trachea. 09/15/2021 Dr. Gary Johnson 75 year old male former smoker with PMH significant for renal cell carcinoma, bladder cancer, lung cancer, LUIS CARLOS, mild COPD with recent pneumonia. Cancer history dates back to 2011 when he was first noted to have a right upper lobe, approximately 3 x [address] in 2014 showed progression in size, PET scan with low-level activity. 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 Final pathologic stage T3 N0 M0. Treated with carboplatin and paclitaxel, completing therapy in January 2017. Surveillance chest CT in June 2019 showed enlarged soft tissue density in the right hilum with maximum PET uptake SUV 3.0. Follow-up CT in October 2019 showed increase in soft tissue density. Subsequent bronchoscopy pertinent for extrinsic compression of the posterior wall of right middle lobe bronchus and bronchus intermedius without endobronchial tumor. EBUS/TBNA positive for adenocarcinoma. Restaging negative for metastatic disease. Status post SBRT to hilum 12/2019, and chemotherapy consisting of Abraxane/carboplatin and Keytruda. Currently on maintenance Keytruda. Patient has had marked deformity of his right mainstem bronchus resulting in chronic cough. Patient had a change in the character of his chronic cough more frequent and coughing at night. Updated chest x-ray showed right upper lobe infiltrate and subsequent chest CT shows new right upper lobe posterior segment groundglass opacities. Infectious pneumonia versus check point inhibitor pneumonitis, more consistent with infectious pneumonia. Treated with Levaquin. He states that his cough has improved, not as consistent but he has been plagued with morning cough. He states the until he is able to expectorate phlegm and then does well throughout the rest of the day. Phlegm is not discolored nor is there any blood. No significant wheezing, chest pain or dyspnea. New issue with shingles which which has resulted in increased fatigue. Repeat chest x-ray showed more dense right upper lobe infiltrate. REVIEW OF SYSTEMS: General: No weight loss, malaise or fevers. Neurological: +RLS on rx. No history of TIA's, stroke, TELEMARKETING MANAGER tumor, impaired sensorium, hemiplegia, paraplegia or quadraplegia. No neurological symptoms or problems. Respiratory: +former smoker <1ppd/[address] 10/19/2021 IMPRESSION: Progression of RIGHT lung airspace disease with small areas of improvement. Development of irregular multifocal RIGHT lung airspace disease. Findings atypical for radiation fibrosis given relatively extensive post exchange manager the LEFT 2 months, one and half years following completion of radiation therapy. Multifocal infection and recurrent neoplasm are considerations. Predominance of RIGHT-sided findings are atypical for bronchiolitis obliterans. Limited assessment RIGHT hilum. Recurrent neoplasm cannot be excluded. Mild adenopathy similar to prior study. Stable small nodules LEFT lung base. Positive for: COPD (rx as needed). Negative for: asthma, tobacco use and URI < 2 weeks. Cardiovascular: Positive for: DVT/PE (hx PE 2018 tx with AC) Negative for: anticoagulation therapy, arrhythmia, atrial fibrillation, CAD, chest pain, CHF, congenital heart defect, hyperlipidemia, hypertension, recent FL, murmur/valvular heart disease, open heart surgery and valve surgery. GI: Positive for: GERD (on rx) Negative for: abdominal pain, dysphagia, hepatitis, irritable bowel syndrome, inflammatory bowel disease, liver disease, nausea, pancreatitis, vomiting and ETOH >2 drinks/day. : Positive for: renal failure. Endocrine: No history of diabetes. Has not taken steroids within the past 30 days. No history of endocrinological symptoms or problems. Hematology: No history of bleeding or clotting disorder. Patient is not taking anti-coagulation or platelet medications. No history of hematological symptoms or problems. Oncology: +Renal cell cancer s/p nehprectomy +lung cancer s/p lobectomy, followed by chemo, followed with local recurrence tx XRT +BCC s/p excision +bladder cancer s/p bcg and excision 10/06/2021 Dr. 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 Patient has had a persistent cough predating radiation last year. It is a constant nagging cough triggered by deep breath and particularly bothersome at nighttime. If he has sputum production, it is nonpurulent typically clear to whitish in color. He is not had hemoptysis. No chest pain. He is not able to use his CPAP machine properly because of the cough. Some nights he has to sit on the side of the bed waiting an hour or 2 for paroxysm of cough to settle down. He has tried multiple interventions for the cough including Tessalon Perles and multiple codeine and Hycodan-based cough syrups which did not help. Underwent bronchoscopy 05/18/2021. Airway examination of the left lung was normal. There was extrinsic compression observed in the bronchus intermedius. Lymph node sizing and sampling was performed. EBUS TB NA was performed at lymph node station 7. Rapid onsite evaluation preliminary cytology suggested malignancy and level 7 lymph node. Pathology: FINAL DIAGNOSIS A. BRONCHIAL, #22 EBUS TBNA STATION 7, FINE NEEDLE ASPIRATE (THINPREP, SMEARS AND CELL BLOCK) Positive for malignant cells. Adenocarcinoma. Previous therapy: 1) Abraxane, carboplatin and Keytruda. Current therapy: 1) Pembrolizumab. Presents for ongoing oncologic management. Interim history: He was given a prescription for Mucomyst by Dr. Collins. He said it helped significantly but once he felt like he coughed everything out it no longer was helping. So he is taking a break from it right now. He said the same goes for albuterol. On the whole he is coughing less however. He has stable dyspnea with exertion. He is remaining active around the home and is currently helping his son remodel her bathroom. His appetite is good. Today he endorses he has been having left lower quadrant pain for months. Very tender to touch that area. Bowels work but more lately has been constipated. He is not sure what tykq-suz-rwakcma laxative he uses on occasion. PMH, medications and allergies as below personally reviewed by me today. Any changes documented in appropriate section ASSESSMENT/PLAN: (C34.11) 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) (primary encounter diagnosis) Assessment: -pT3 N0 MX (greater than 7 cm adenocarcinoma) stage 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 -Patient received SBRT for local recurrence of disease. -Recent PET scan in conjunction with biopsy of subcarinal lymph node demonstrate recurrent disease. -PDL-1 1%. -ALK rearrangement not detected. -BRAF - A sequence change: [id number] ([id number] ([id number])). Not V600E mutation. -EGFR -No variant detected. -HER2 (ERBB2) - No variant detected. -KRAS - No variant detected. -MET - No variant detected. -He is tolerating therapy overall very well. -Harry symptoms are improved and no worse arguing against immunotherapy induced lung toxicity. Plan: -Continue pembrolizumab. -Obtain CT chest without IV contrast and MRI abdomen. Dave Noble, DO Psych: No history of psychiatric symptoms or problems. Musculoskeletal: +hx lumbar fusion. Negative for joint pain or swelling, back pain or muscle pain. Skin: Negative for lesions, rash and itching. PAST MEDICAL HISTORY Diagnosis Date Bladder cancer (HCC) Chronic kidney disease COPD (chronic obstructive pulmonary disease) (HCC) Gout Hypercholesterolemia Hypogonadism in male Lung cancer (HCC) Renal cancer (HCC) Shingles 2021 Skin cancer Sleep apnea PAST SURGICAL HISTORY Procedure Laterality Date APPENDECTOMY PAST SURGICAL HISTORY OF 2018 Back surgery PAST SURGICAL HISTORY OF 2009 Bladder surgery PAST SURGICAL HISTORY OF 2014 Skin cancer removed from head PAST SURGICAL HISTORY OF Right 2016 Right upper lobectomy PAST SURGICAL HISTORY OF Right 07/2019 Cataract surgery PAST SURGICAL HISTORY OF Left 08/2019 Cataract Surgery PAST SURGICAL HISTORY OF 08/2019 nasal surgery REMOVAL OF KIDNEY Right 2003 TONSILLECTOMY HX 1998 FAMILY HISTORY Problem Relation Age of Onset Hypertension Mother other (Lung Cancer) Father other (Parkinson's Disease) Sister other (Bone Cancer) Brother other (Lung Cancer) Brother Diabetes Brother other (Melanoma) Brother other (Hepatitis C) Brother Breast Cancer Sister other (Lung Cancer) Sister other (Parkinson's Disease) Sister Cancer Sister Brain Cancer, lung cancer Social History Tobacco Use Smoking status: Former Smoker Packs/day: 1.00 Years: 30.00 Pack years: 30.00 Types: Cigarettes Quit date: 09/24/1996 Years since quittin.1 Smokeless tobacco: Never Used Vaping Use Vaping Use: Never used Substance Use Topics Alcohol use: Yes Alcohol/week: 4.0 standard drinks Types: 4 Glasses of Wine (5oz) per week Comment: occassionally/ social Drug use: No Prior to Admission medications as of 10/30/21 6243 Medication Sig Last Dose Taking cyanocobalamin, vitamin B-12, (VITAMIN B-12 INJECTION) by INJECTION(UNSPECIFIED PARENTERAL ROUTES) route every 2 weeks. MEDICATION, NON-DATABASE immunotherapy acetylcysteine (MUCOMYST) 100 mg/mL (10 %) nebulizer solution Inhale 4 mL as instructed twice daily. famotidine (PEPCID) 40 mg tablet Take 1 tablet by mouth once daily. guaifenesin (MUCINEX ORAL) Take 2 tablets by mouth once daily. As needed loratadine (CLARITIN) 10 mg tablet Take 10 mg by mouth once daily. ondansetron (ZOFRAN) 8 mg tablet Take 1 tablet by mouth every 8 hours as needed for nausea/vomiting. fluticasone propionate (FLONASE NASAL) Use 2 Sprays in the nose once daily. doxepin capsule 25 mg Take 25 mg by mouth daily at bedtime. albuterol HFA (PROVENTIL HFA, VENTOLIN HFA) 90 mcg/actuation inhaler Inhale 2 Puffs as instructed four times daily as needed. acetaminophen (TYLENOL EXTRA STRENGTH) 500 mg tablet Take 500 mg by mouth as needed. febuxostat (ULORIC) 40 mg tab Take 40 mg by mouth once daily. testosterone cypionate (DEPO-TESTOSTERONE) 100 mg/mL injection One IM injection twice monthly. pramipexole (MIRAPEX) 0.5 mg tablet Take two tablets by mouth twice daily. No medication comments found. ALLERGIES No Known Allergies Objective PHYSICAL EXAM: General: alert and oriented (x3) and healthy appearance. Pertinent negatives noted - not distressed. Skin: normal color, no rash or lesions. HEENT: EOM intact and pupils equal round. Pertinent negatives noted - no carotid bruit. Cardiovascular: regular rate and rhythm, normal S1 and S2, no rub, murmurs, or gallop. Respiratory: normal breath sounds, no wheezes or crackles. No chest wall deformity or tenderness. Abdomen: soft. Pertinent negatives noted - not tender. Extremities: no deformity, no edema or tenderness, no joint swelling or clubbing. Neurological: normal cognition and motor skills. Gait normal. No weakness or sensory deficit. PAIN ASSESSMENT: VITALS: BP 102/72 Pulse 104 Temp (Src) 98.5 (Temporal) Resp 18 Ht 6' 3.5 (1.92m) Wt 216 lb (98.0kg) SpO2 97% BMI 26.63 kg/(m^2). Diagnostic tests reviewed for today's visit: Lab Value Units Date High Low HB 13.6 g/dL 10/27/2021 17.0 13.0 HB 10.9 g/dL 09/15/2021 17.0 13.0 HCT 41.9 % 10/27/2021 51.0 39.0 HCT 33.6 % 09/15/2021 51.0 39.0 WBC 7.76 k/uL 10/27/2021 11.00 3.70 WBC 5.55 k/uL 09/15/2021 11.00 3.70 PLT 237 k/uL 10/27/2021 400 150 PLT 252 k/uL 09/15/2021 400 150 NA 140 mmol/L 10/27/2021 144 136 NA 133 mmol/L 09/15/2021 144 136 K 4.2 mmol/L 10/27/2021 5.1 3.7 K 4.2 mmol/L 09/15/2021 5.1 3.7 GLUC 118 mg/dL 10/27/2021 99 74 GLUC 114 mg/dL 09/15/2021 99 74 BUN 23 mg/dL 10/27/2021 24 9 BUN 26 mg/dL 09/15/2021 24 9 CREAT 1.60 mg/dL 10/27/2021 1.22 0.73 CREAT 1.72 mg/dL 09/15/2021 1.22 0.73 PTSEC No results within date range. INR No results within date range. APTT No results within date range. ALT 12 U/L 10/27/2021 54 10 ALT 27 U/L 09/15/2021 54 10 AST 14 U/L 10/27/2021 40 14 AST 27 U/L 09/15/2021 40 14 TBILI 0.2 mg/dL 10/27/2021 1.3 0.2 TBILI 0.4 mg/dL 09/15/2021 1.3 0.2 TSH 3.830 mIU/L 10/27/2021 4.200 0.270 TSH 2.270 mIU/L 09/15/2021 4.200 0.270 Lab Value Units Date High Low HCGQT No results within date range. UHCG No results within date range. HCG, BODY* No results within date range. Lab Value Units Date High Low ABORHD No results within date range. ABSCREEN No results within date range. No results found for: HBA1C Recent Results (from the past 8760 hour(s)) ECG COMPLETE Collection Time: 05/18/21 7:07 AM Result Value Ventricular Rate 68 Atrial Rate 68 P-R Interval 164 QRS Duration 84 QT Interval 416 QTC Calculation (Bazett) 442 Calculated P [place] 71 Calculated R [place] 6 Calculated T [place] 51 Impression NORMAL SINUS RHYTHM NORMAL ECG Confirmed by BRENDA BRUMFIELD, HECTOR ([id number]) on 05/18/2021 9:22:17 AM No results found for this or any previous visit (from the past 95334 hour(s)). Assessment 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) Assessment: s/p right upper lobectomy followed by chemo Local recurrence of cancer of right lung (HCC) Assessment: s/p XRT and chemo Pulmonary embolus (HCC) Assessment: hx 2018 cancer provoked, tx with Xarelto Skin cancer Assessment: BCC s/p excision RLS (restless legs syndrome) Assessment: controlled on rx COPD (chronic obstructive pulmonary disease) (HCC) Assessment: former smoker <1ppd/20 years, controlled on rx as needed, following pulmonary Megaloblastic anemia due to vitamin B12 deficiency Assessment: on B-12 Hemoglobin (g/dL) Date Value 10/27/2021 13.6 09/15/2021 10.9 Hematocrit (%) Date Value 10/27/2021 41.9 09/15/2021 33.6 WBC (k/uL) Date Value 10/27/2021 7.76 09/15/2021 5.55 GERD (gastroesophageal reflux disease) Assessment: controlled on rx CKD (chronic kidney disease) Assessment: Creatinine Date Value Ref Range Status 10/27/2021 1.60 (H) 0.73 - 1.22 mg/dL Final 10/06/2021 1.75 (H) 0.73 - 1.22 mg/dL Final 09/15/2021 1.72 (H) 0.73 - 1.22 mg/dL Final 09/04/2021 2.04 (H) 0.73 - 1.22 mg/dL Final 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 Willy Colvin Assessment: on rx METS: Climb a flight of stairs or walk up a hill (5.50 METs) DASI Score: 5.5; Patient denies any chest pain or undue shortness of breath with the above physical activity. Clinical Frailty Scale: 4. Apparently vulnerable ASA Class: 3 ANESTHESIA FINDINGS: Intubation History: No history of difficult intubation Significant Anesthesia Considerations: none Airway History: No history of difficult airway [id number] Score: Age: >=75 Sex: Male CHF history: No Hypertension history: No Stroke/TIA/thromboembolism history: No Vascular disease history: No Diabetes history: No Score: 2 I - PHYSICAL EVALUATION AIRWAY Tracheostomy tube not present Mallampati: II. TM distance: >3 FB. Neck ROM: full ROM without neurological symptoms. Mouth opening: adequate. Short neck: no. Thick neck: no DENTAL Dental findings: teeth intact. II - ANESTHESIA PLAN ASA Score: 3 Anesthetic Plan: other Anesthetic plan additional comments: *PACC/TCI - anesthesia choice. Informed Consent Anesthetic risks, benefits, alternatives, personnel and consent discussed: yes. Patient / Responsible Green Party agrees to proceed: yes Patient / Surrogate agrees to blood products: blood products not planned Prepared for Surgery: optimally prepared for surgery, pending (see comment). COVID CONSULTS: Patient does not require consults for optimization at this time The Following Tests/Procedures Have Been Initiated: No orders of the defined types were placed in this encounter. Planned Anesthetic: other anesthesia choice Instructions Given to Patient: Instructions located in the after visit summary. Patient given verbal and written preop instructions and voices comprehension and compliance. SIGNATURE: Regine Jim APRN.CNP PATIENT NAME: Checo Johnson DATE: November 03, 2021 TIME: 9:56 AM PAGER/CONTACT #: documented in this encounter [facility] 10-27-2021 History of Present illness Narrative Chief Complaint Patient presents with: Established Patient HPI: Checo Johnson is a 75 year old male who presents here today for evaluation for treatment on Saturday. Per Dr. Noble's previous note: H/o RCC (right nephrectomy at [facility] 2003; followed up with Dr. Hernandez), superficial bladder cancer, LUIS CARLOS (underwent uvulopalatopharyngoplasty by Dr. Aguilera), COPD and gout. He had been under the care of [...] an SUV of 2 for that lesion. Patient underwent a CT chest on 05/07/2016. The inhomogeneous soft tissue density in the posterior medial segment of the right upper lobe was not noted to change in size and measured 3.6 x 3.8 x 4.8 cm. Patient was referred to a thoracic surgeon at [facility]. He ultimately underwent a right thoracotomy with right upper lobe wedge resection and immediate right upper lobectomy along with mediastinal lymphadenectomy on 08/14/2016. The final pathology demonstrated within the wedge [...] sections. Final pathologic staging was pT3 N0. Previous therapy: 1) Adjuvant carbo/paclitaxel completed 01/2017. He had a surveillance CT of the chest in June 2018 which showed stable 4 mm nodules in the right lung. A subsequent surveillance CT chest December 2018 revealed stable findings. However in June 2019 CT scan showed mild enlargement of soft tissue density in the right hilum/suprahilar region. This was thought to potentially represent recurrent disease. It measured 2.4 x 1.3 cm versus 1.4 x 1.[address] was obtained on 07/07/2019 and it demonstrated only slight FDG avidity corresponding to the right hilar/suprahilar enlarging soft tissue density with a max SUV of 3.0. A follow-up CT chest in October 2019 revealed interval increase in size of the soft tissue mass/density posterior to the right mainstem bronchus measuring 2.3 x 1.7 cm. Previously it was noted to be 2.1 x 1.2 cm. There was no CT evidence of progressive adenopathy. Patient underwent a bronchoscopy in October 2019. He was noted to have slight inward bulging of the posterior wall of the right middle lobe bronchus and bronchus intermedius without any compromise to luminal patency. This corresponded to the site of the right lower lobe lesion on imaging. Bronchial mucosa and anatomy were otherwise normal. There were no endobronchial lesions and no secretions. He underwent EBUS and TB NA of the right lower lobe lung nodule and cytology was positive for malignant cells. Pathology demonstrated non-small cell carcinoma favoring adenocarcinoma. Molecular telephone directory distributor driver mutations were all negative. Repeat PET/CT 11/17/2019 revealed mild uptake in the right lung nodule with a max SUV of 2.5. There was no other suspicious uptake. Brain MRI 11/04/2019 revealed no brain metastases. Patient underwent SBRT for local hilar recurrence versus new primary right lower lobe lung cancer. Was completed 2019. Patient had a surveillance CT of the chest on 01/06/2021. That study showed extensive postsurgical change and scarring from right upper lobectomy. There was paramedian fibrosis and bronchiectasis on the right which was noted previously. There was a right subcentimeter mid lung field nodule which was unchanged. No new nodules were observed. No enlarged lymph nodes were observed. There was marked deformity of the right mainstem bronchus. 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 Patient has had a persistent cough predating radiation last year. It is a constant nagging cough triggered by deep breath and particularly bothersome at nighttime. If he has sputum production, it is nonpurulent typically clear to whitish in color. He is not had hemoptysis. No chest pain. He is not able to use his CPAP machine properly because of the cough. Some nights he has to sit on the side of the bed waiting an hour or 2 for paroxysm of cough to settle down. He has tried multiple interventions for the cough including Tessalon Perles and multiple codeine and Hycodan-based cough syrups which did not help. Underwent bronchoscopy 05/18/2021. Airway examination of the left lung was normal. There was extrinsic compression observed in the bronchus intermedius. Lymph node sizing and sampling was performed. EBUS TB NA was performed at lymph node station 7. Rapid onsite evaluation preliminary cytology suggested malignancy and level 7 lymph node. Pathology: FINAL DIAGNOSIS A. BRONCHIAL, #22 EBUS TBNA STATION 7, FINE NEEDLE ASPIRATE (THINPREP, SMEARS AND CELL BLOCK) Positive for malignant cells. Adenocarcinoma. Previous therapy: 1) Abraxane, carboplatin and Keytruda. Current therapy: 1) Pembrolizumab. Left sided pain persists since shingles. Appetite: Ok. Wt. stable. Energy level: Not real great. Denies fevers. Mouth:denies sores Resp:+cough, denies sob at rest, baca heavy exertion GI:denies abd pain-L lateral abd pain s/p shingles, denies n/v, moving bowels regularly :denies dysuria/hematuria Extrem:denies pain Neuro:chronic L hand numbness/tingling Skin:denies rashes Heme:denies bleeding The ROS is otherwise negative. Past medical history, appointments, medications, allergies reviewed. No changes. EXAM: BP 96/66 Pulse 102 Temp 36.4 C (97.5 F) (Temporal) Wt 97.3 kg (214 lb 8 oz) SpO2 100% BMI 26.46 kg/m APPEARANCE Well appearing, alert, in no acute distress, well-hydrated, well nourished. HEART RRR with normal S1 and S2, no murmurs LUNG clear to auscultation LYMPH NODES No cervical lymphadenopathy, No supraclavicular lymphadenopathy and No axillary lymphadenopathy. ABDOMEN bowel sounds normoactive, soft, non-tender, non-distended, without organomegaly or palpable masses EXTREMITIES LLE edema-stable NEURO Awake, alert and oriented x 3, Normal gait and No involuntary motions. SKIN Skin color, texture, turgor normal, no suspicious rashes or lesions LABS: Component Latest Ref Rng & Units 10/06/2021 10/27/2021 WBC 3.70 - 11.00 k/uL 6.86 7.76 RBC 4.20 - 6.00 m/uL 3.89 (L) 4.49 Hemoglobin 13.0 - 17.0 g/dL 12.0 (L) 13.6 Hematocrit 39.0 - 51.0 % 37.8 (L) 41.9 MCV 80.0 - 100.0 fL 97.2 93.3 MCH 26.0 - 34.0 pg 30.8 30.3 MCHC 30.5 - 36.0 g/dL 31.7 32.5 RDW-CV 11.5 - 15.0 % 16.4 (H) 14.7 Platelet Count 150 - 400 k/uL 180 237 MPV 9.0 - 12.7 fL 9.8 9.6 Neut% % 80.2 Abs Neut (ANC) 1.45 - 7.50 k/uL 5.50 Lymph% % 8.7 Abs Lymph 1.00 - 4.00 k/uL 0.60 (L) [place]% % 6.7 Abs [place] <0.87 k/uL 0.46 Eosin% % 2.5 Abs Eosin <0.46 k/uL 0.17 Baso% % 0.7 Abs Baso <0.11 k/uL 0.05 Immature Gran % % 1.2 IMMATURE GRANS (ABS) <0.10 k/uL 0.08 NRBC /100 WBC 0.0 Absolute nRBC <0.01 k/uL <0.01 DTYPE Auto Component Latest Ref Rng & Units 10/06/2021 10/27/2021 Protein, Total 6.3 - 8.0 g/dL 6.4 6.4 Albumin 3.9 - 4.9 g/dL 3.4 (L) 3.5 (L) Calcium 8.5 - 10.2 mg/dL 8.8 8.9 Bilirubin, Total 0.2 - 1.3 mg/dL 0.3 0.2 Alkaline Phosphatase 38 - 113 U/L 126 (H) 87 AST 14 - 40 U/L 18 14 ALT 10 - 54 U/L 23 12 Glucose 74 - 99 mg/dL 97 118 (H) BUN 9 - 24 mg/dL 27 (H) 23 Creatinine 0.73 - 1.22 mg/dL 1.75 (H) 1.60 (H) Sodium 136 - 144 mmol/L 140 140 Potassium 3.7 - 5.1 mmol/L 4.4 4.2 Chloride 97 - 105 mmol/L 104 101 CO2 22 - 30 mmol/L 26 24 Anion Gap 9 - 18 mmol/L 10 15 eGFR >=60 mL/min/1.73m 40 (L) 45 (L) Component Latest Ref Rng & Units 10/06/2021 10/27/2021 Magnesium 1.7 - 2.3 mg/dL 1.8 1.7 TSH/Cortisol: Pending RADIOLOGY: CT chest 10/19/21: IMPRESSION: Progression of RIGHT lung airspace disease with small areas of improvement. Development of irregular multifocal RIGHT lung airspace disease. Findings atypical for radiation fibrosis given relatively extensive post exchange manager the LEFT 2 months, one and half years following completion of radiation therapy. Multifocal infection and recurrent neoplasm are considerations. Predominance of RIGHT-sided findings are atypical for bronchiolitis obliterans. Limited assessment RIGHT hilum. Recurrent neoplasm cannot be excluded. Mild adenopathy similar to prior study. Stable small nodules LEFT lung base. MRI abd 10/19/21: IMPRESSION: 1. NO NEW MASS OR LYMPHADENOPATHY IN THE ABDOMEN 2. CONSOLIDATION IN THE RIGHT LOWER LUNG BETTER VISUALIZED ON THE CT SCAN OF THE CHEST PERFORMED THE SAME DAY ASSESSMENT/PLAN: 1. 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) - ICD9: 162.3, ICD10: C34.11 (primary diagnosis) pT3 N0 MX (greater than 7 cm adenocarcinoma) stage 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 2. Stage 3b chronic kidney disease (HCC) - ICD9: 585.3, ICD10: N18.32 - Overall tolerating treatment well. - Reviewed CT chest/MRI abd/CBC/CMP/Mag with pt. - TSH/Cortisol pending. - Finish levaquin course. - Follow up with PULM-planning bronch per Dr. Collins. - Proceed as scheduled on Saturday for Keytruda. - Follow up as scheduled. - Pt. aware to call office with any questions/concerns. The patient indicates understanding of these issues and agrees with the plan. All documentation from previous visit of 10/06/21-Dr. Noble was copied and pasted, documentation has been reviewed and edited as necessary for today's visit. Xuan Lora APRN.[place] documented in this encounter [facility] 10-24-2021 Miscellaneous Notes I called patient and reviewed the results of the recent CT scan with him. Cough worse. Sent message to Dr. Collins. Prescribed Levaquin 500 mg daily x7 days. Dave Noble DO documented in this encounter [facility] 06-01-2021 Miscellaneous Notes Pt. Notified MRI of brain was negative. Voiced understanding. Betty Jaimes LPN Can let him know MRI of the brain is negative for cancer. Dave Noble DO Spoke with spouse and relayed info below. Patient was sleeping and will have him call respiratory [facility] to schedule consult. Please let him know that bronchoscopy team got in touch with me to let me know that they do not think a stent is going to help his cough. They recommended we refer Checo to the cough clinic. I placed a referral for pulmonology and specified cough clinic. Otherwise, to begin treatment here as scheduled. Dave Noble DO documented in this encounter [facility] 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)- Primary Stage 3b chronic kidney disease (HCC) [facility] Local recurrence of cancer of right lung (HCC)- Primary 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) Cancer of trachea, bronchus, and lung (HCC) Malignant neoplasm of other parts of bronchus or lung Lung cancer (HCC) Malignant neoplasm of bronchus and lung, unspecified site [facility] Malignant neoplasm of upper lobe of right lung (HCC)- Primary Malignant neoplasm of upper lobe, bronchus or lung Cancer of trachea, bronchus, and lung (HCC) Malignant neoplasm of other parts of bronchus or lung Lung cancer (HCC) Malignant neoplasm of bronchus and lung, unspecified site [facility] Diagnosis Pre-operative examination- Primary Preoperative examination, unspecified Cancer of trachea, bronchus, and lung (HCC) Malignant neoplasm of other parts of bronchus or lung 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) Local recurrence of cancer of right lung (HCC) Renal cell carcinoma, unspecified laterality (HCC) Malignant neoplasm of urinary bladder, unspecified site (HCC) Skin cancer Unspecified malignant neoplasm of skin, site unspecified Other acute pulmonary embolism without acute cor pulmonale (HCC) Chronic obstructive pulmonary disease, unspecified COPD type (HCC) Chronic kidney disease, unspecified CKD stage Megaloblastic anemia due to vitamin B12 deficiency Other vitamin B12 deficiency anemia RLS (restless legs syndrome) Restless legs syndrome (RLS) Gastroesophageal reflux disease, unspecified whether esophagitis present LUIS CARLOS (obstructive sleep apnea) Obstructive sleep apnea (adult) (pediatric) Gout, unspecified cause, unspecified chronicity, unspecified site History of lumbar fusion Cancer of trachea, bronchus, and lung (HCC) Malignant neoplasm of other parts of bronchus or lung Lung cancer (HCC) Malignant neoplasm of bronchus and lung, unspecified site [facility] 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)- Primary [facility] Chemotherapy induced pulmonary toxicity- Primary Respiratory conditions due to other specified external agents Cancer of trachea, bronchus, and lung (HCC) Malignant neoplasm of other parts of bronchus or lung [facility] 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)- Primary Urinary urgency Urgency of urination [facility] Diagnosis Chemotherapy-induced lung disease- Primary Respiratory conditions due to other specified external agents Current chronic use of systemic steroids Malignant neoplasm of upper lobe of right lung (HCC) Malignant neoplasm of upper lobe, bronchus or lung Leukocytosis, unspecified type [facility] Diagnosis Chemotherapy induced pulmonary toxicity Respiratory conditions due to other specified external agents [facility] Diagnosis 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)- Primary [facility] Diagnosis Local recurrence of cancer of right lung (HCC)- Primary 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) [facility] Diagnosis 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)- Primary Cough [facility] Diagnosis 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) Cough [facility] Diagnosis 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) [facility] Diagnosis Interstitial pulmonary disease (HCC) Postinflammatory pulmonary fibrosis [facility] Diagnosis 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)- Primary Interstitial pulmonary disease (HCC) Postinflammatory pulmonary fibrosis [facility] Diagnosis Cancer of trachea, bronchus, and lung (HCC)- Primary Malignant neoplasm of other parts of bronchus or lung Lung nodules Other nonspecific abnormal finding of lung field [facility] Diagnosis Lung nodules Other nonspecific abnormal finding of lung field Cancer of trachea, bronchus, and lung (HCC) Malignant neoplasm of other parts of bronchus or lung [facility] Diagnosis Chronic cough- Primary Cough 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) [facility] Diagnosis Local recurrence of cancer of right lung (HCC)- Primary Interstitial pulmonary disease (HCC) Postinflammatory pulmonary fibrosis [facility] Diagnosis Lung nodule seen on imaging study- Primary Solitary pulmonary nodule [facility] Diagnosis Post-radiation pneumonitis (HCC)- Primary Acute pulmonary manifestations due to radiation SOB (shortness of breath) Shortness of breath 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) [facility] Diagnosis Interstitial pulmonary disease (HCC) Postinflammatory pulmonary fibrosis [facility] Diagnosis Cancer of trachea, bronchus, and lung (HCC)- Primary Malignant neoplasm of other parts of bronchus or lung 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) [facility] Diagnosis SOB (shortness of breath) Shortness of breath [facility] Diagnosis SOB (shortness of breath) Shortness of breath [facility] Diagnosis 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)- Primary Cancer of trachea, bronchus, and lung (HCC) Malignant neoplasm of other parts of bronchus or lung Local recurrence of cancer of right lung (HCC) 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) [facility] Diagnosis Cancer of trachea, bronchus, and lung (HCC)- Primary Malignant neoplasm of other parts of bronchus or lung Local recurrence of cancer of right lung (HCC) 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) [facility] Diagnosis Cancer of trachea, bronchus, and lung (HCC)- Primary Malignant neoplasm of other parts of bronchus or lung Local recurrence of cancer of right lung (HCC) 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) [facility] Diagnosis 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)- Primary Chronic cough Cough [facility] Diagnosis Cancer of trachea, bronchus, and lung (HCC)- Primary Malignant neoplasm of other parts of bronchus or lung Local recurrence of cancer of right lung (HCC) 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) [facility] Diagnosis 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)- Primary Cancer of trachea, bronchus, and lung (HCC) Malignant neoplasm of other parts of bronchus or lung Local recurrence of cancer of right lung (HCC) 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) [facility] Diagnosis Cancer of trachea, bronchus, and lung (HCC)- Primary Malignant neoplasm of other parts of bronchus or lung Local recurrence of cancer of right lung (HCC) 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) [facility] Diagnosis Local recurrence of cancer of right lung (HCC)- Primary 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) Pneumonitis Pneumonia, organism unspecified [facility] Diagnosis Cancer of trachea, bronchus, and lung (HCC)- Primary Malignant neoplasm of other parts of bronchus or lung Local recurrence of cancer of right lung (HCC) 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) [facility] Diagnosis Cancer of trachea, bronchus, and lung (HCC)- Primary Malignant neoplasm of other parts of bronchus or lung Local recurrence of cancer of right lung (HCC) 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) [facility] Diagnosis Cancer of trachea, bronchus, and lung (HCC)- Primary Malignant neoplasm of other parts of bronchus or lung Local recurrence of cancer of right lung (HCC) 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) [facility] Diagnosis Post-radiation pneumonitis (HCC)- Primary Acute pulmonary manifestations due to radiation SOB (shortness of breath) Shortness of breath 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) 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) [facility] Diagnosis Cancer of trachea, bronchus, and lung (HCC)- Primary Malignant neoplasm of other parts of bronchus or lung Local recurrence of cancer of right lung (HCC) 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) [facility] Diagnosis Pneumonitis Pneumonia, organism unspecified Malignant neoplasm of unspecified part of unspecified bronchus or lung (HCC) [facility] Diagnosis 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)- Primary 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) [facility] Diagnosis Chronic cough- Primary Cough Malignant neoplasm of upper lobe of right lung (HCC) Malignant neoplasm of upper lobe, bronchus or lung Ground glass opacity present on imaging of lung Thrush Candidiasis of mouth [facility] Diagnosis Cancer of trachea, bronchus, and lung (HCC)- Primary Malignant neoplasm of other parts of bronchus or lung Interstitial pulmonary disease (HCC) Postinflammatory pulmonary fibrosis Local recurrence of cancer of right lung (HCC) 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) [facility] Diagnosis Cancer of trachea, bronchus, and lung (HCC)- Primary Malignant neoplasm of other parts of bronchus or lung 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) [facility] Diagnosis 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)- Primary 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) [facility] Diagnosis Cancer of trachea, bronchus, and lung (HCC)- Primary Malignant neoplasm of other parts of bronchus or lung Local recurrence of cancer of right lung (HCC) 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) [facility] Diagnosis Cancer of trachea, bronchus, and lung (HCC)- Primary Malignant neoplasm of other parts of bronchus or lung Local recurrence of cancer of right lung (HCC) 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) [facility] Diagnosis Cancer of trachea, bronchus, and lung (HCC)- Primary Malignant neoplasm of other parts of bronchus or lung 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) Drug rash Dermatitis due to drugs and medicines taken internally Stage 3b chronic kidney disease (HCC) [facility] Diagnosis Malignant neoplasm of unspecified part of unspecified bronchus or lung (HCC)- Primary [facility] Diagnosis Malignant neoplasm of unspecified part of unspecified bronchus or lung (HCC)- Primary 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) Stage 3b chronic kidney disease (HCC) [facility] Diagnosis Acute bronchitis, unspecified organism- Primary Chronic cough Cough Radiation fibrosis of lung (HCC) 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) Ground glass opacity present on imaging of lung 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) [facility] Diagnosis Malignant neoplasm of unspecified part of unspecified bronchus or lung (HCC)- Primary 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)- Primary documented in this encounter [facility] note* Diagnosis Malignant neoplasm of unspecified part of unspecified bronchus or lung (HCC)- Primary Chronic cough Cough documented in this encounter [facility] note* Diagnosis Nonrheumatic mitral valve regurgitation- Primary Chronic cough Cough Dyspnea and respiratory abnormalities Other dyspnea and respiratory abnormality documented in this encounter [facility] for referral (narrative)* Diagnostic Procedure Only (Routine) - Authorized Specialty Diagnoses / Procedures Referred By Contac t Referred To Contact [facility] Diagnoses Lung nodules Cancer of trachea, bronchus, and lung (HCC) Procedures NM PET/CT SKULL-THIGH SUBSEQUENT PET IMAGING CT ATTENUATION SKULL BASE MID-THIGH Dave Noble DO [address] [place] [address] [facility] [address] [place] [address] Referral ID Status Reason Start Date Expiration Date Visits Requested Visits Authorized [id number] Authorized Auto-Generat ed Referral 02/17/2022 03/19/2023 1 1 [facility] for referral (narrative)* Diagnostic Procedure Only (Routine) - Closed Specialty Diagnoses / Procedures Referred By Contac t Referred To Contact [facility] Diagnoses Lung nodules Cancer of trachea, bronchus, and lung (HCC) Procedures NM PET/CT SKULL-THIGH SUBSEQUENT PET IMAGING CT ATTENUATION SKULL BASE MID-THIGH Dave Noble DO [address] [place] [address] [facility] [address] [place] [address] Referral ID Status Reason Start Date Expiration Date V isits Requested Visits Authorized [id number] Closed Auto-Generate d Referral 02/17/2022 03/19/2023 1 1 [facility] for referral (narrative)* Outpatient Procedure (Routine) - Authorized Specialty Diagnoses / Procedures Referred By Contac t Referred To Contact [facility] Diagnoses SOB (shortness of breath) Procedures LUNG VOLUMES Margarita Collins MD [address] [place] [address] [place] [address] Referral ID Status Reason Start Date Expiration Date Visits Requested Visits Authorized [id number] Authorized Auto-Generat ed Referral 04/10/2022 05/10/2023 1 1 * Outpatient Procedure (Routine) - Authorized Specialty Diagnoses / Procedures Referred By Contac t Referred To Contact [facility] Diagnoses SOB (shortness of breath) Procedures SPIROMETRY WITH DILATOR IF OBSTRUCTED BRNCDILAT RSPSE SPMTRY PRE&POST-BRNCDILAT ADMN Margarita Collins MD [address] [place] [address] [address] Referral ID Status Reason Start Date Expiration Date Visits Requested Visits Authorized [id number] Authorized Auto-Generat ed Referral 04/10/2022 05/10/2023 1 1 [facility] for referral (narrative)* Diagnostic Procedure Only (Routine) - Closed Specialty Diagnoses / Procedures Referred By Contac t Referred To Contact [facility] Diagnoses Pneumonitis Malignant neoplasm of unspecified part of unspecified bronchus or lung (HCC) Procedures NM PET/CT SKULL-THIGH SUBSEQUENT PET IMAGING CT ATTENUATION SKULL BASE MID-THIGH Dave Noble DO [address] [place] [address] [facility] [address] [id number] Referral ID Status Reason Start Date Expiration Date V isits Requested Visits Authorized [id number] Closed Auto-Generate d Referral 09/10/2022 10/10/2023 1 1 [facility] for referral (narrative)* Diagnostic Procedure Only (Routine) - Authorized Specialty Diagnoses / Procedures Referred By Contac t Referred To Contact [facility] Diagnoses 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) Procedures NM PET/CT SKULL-THIGH SUBSEQUENT PET IMAGING CT ATTENUATION SKULL BASE MID-THIGH Dave Noble DO [address] [place] [address] [facility] [address] [place] [address] Referral ID Status Reason Start Date Expiration Date Visits Requested Visits Authorized [id number] Authorized Auto-Generat ed Referral 06/25/2024 1 1 [facility] for referral (narrative)* Diagnostic Procedure Only (Routine) - Closed Specialty Diagnoses / Procedures [facility] Diagnoses 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) Procedures NM PET/CT SKULL-THIGH SUBSEQUENT PET IMAGING CT ATTENUATION SKULL BASE MID-THIGH Dave Noble DO [address] [place] [address] [facility] [address] [id number] Referral ID Status Reason Start Date Expiration Date V isits Requested Visits Authorized [id number] Closed Auto-Generate d Referral 05/27/2023 06/25/2024 1 1 [facility] for referral (narrative)* Outpatient Procedure (Routine) - Pending Review Specialty Diagnoses / Procedures Referred By Sammy shannon Referred To Contact [facility] Diagnoses Nonrheumatic mitral valve regurgitation Chronic cough Dyspnea and respiratory abnormalities Procedures ECHO ECHO TTHRC R-T 2D W/WOM-MODE COMPL SPEC&COLR D Dave Noble DO [address] [place] [address] [facility] [place] [address] [place] [address] Referral ID Status Reason Start Date Expiration Date Visits Requested Visits Authorized [id number] Pending Review Auto-Generat ed Referral 09/13/2023 09/12/2024 1 1 [facility] for visit Narrative* Diagnostic Procedure Only (Routine) - Closed Specialty Diagnoses / Procedures Referred By Sammy shannon Referred To Contact [facility] Diagnoses Lung nodules Cancer of trachea, bronchus, and lung (HCC) Procedures NM PET/CT SKULL-THIGH SUBSEQUENT PET IMAGING CT ATTENUATION SKULL BASE MID-THIGH Dave Noble DO [address] [place] [address] [facility] [address] [place] [address] Referral ID Status Reason Start Date Expiration Date V isits Requested Visits Authorized [id number] Closed Auto-Generate d Referral 02/17/2022 03/19/2023 1 1 [facility] for visit Narrative* Diagnostic Procedure Only (Routine) - Closed Specialty Diagnoses / Procedures Referred By Sammy shannon Referred To Contact [facility] Diagnoses Pneumonitis Malignant neoplasm of unspecified part of unspecified bronchus or lung (HCC) Procedures NM PET/CT SKULL-THIGH SUBSEQUENT PET IMAGING CT ATTENUATION SKULL BASE MID-THIGH Dave Noble DO [address] [place] [address] [facility] [address] [id number] Referral ID Status Reason Start Date Expiration Date V isits Requested Visits Authorized [id number] Closed Auto-Generate d Referral 09/10/2022 10/10/2023 1 1 [facility] for visit Narrative* Diagnostic Procedure Only (Routine) - Closed Specialty Diagnoses / Procedures Referred By Sammy t Referred To Contact [facility] Diagnoses 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) Procedures NM PET/CT SKULL-THIGH SUBSEQUENT PET IMAGING CT ATTENUATION SKULL BASE MID-THIGH Dave Noble, DO [address] [place] [address] [facility] [address] [place] [address] Referral ID Status Reason Start Date Expiration Date V isits Requested Visits Authorized [id number] Closed Auto-Generate d Referral 05/27/2023 06/25/2024 1 1 [facility] Summary Purpose Family History No Family History Records FoundNo Family History Records FoundNo Family History Records Found Advance Directives No Advanced Directives Records FoundDocuments on File Type Date Recorded Patient Feeder/Folder Expl anation Advance Directive(s) 10/31/2021 8:48 AM Documents on File Type Date Recorded Patient Feeder/Folder Expl anation Advance Directive(s) 10/31/2021 8:48 AM Medications Administered Section Inactive Administered Medications - up to 3 most recent administrations Medication Order MAR Action Action Date Dose Rate Site pembrolizumab 200 mg in NaCl 0.9% 50 mL (KEYTRUDA) 200 mg, INTRAVENOUS, Administer over 30 Minutes, ONCE, 1 dose, On 10/30/21 at 1600, Approx Total Volume: exp 11/03/21 (refrigerated) Administer with 0.2 micron filter. New Bag/Syringe/Bottle 10/30/2021 3:52 PM EDT 200 mg Inactive Administered Medications - up to 3 most recent administrations Medication Order MAR Action Action Date Dose Rate Site pembrolizumab 200 mg in NaCl 0.9% 66 mL (KEYTRUDA) 200 mg, INTRAVENOUS, Administer over 30 Minutes, ONCE, 1 dose, On Nava 01/04/22 at 1400, exp 01/07/22 (refrigerated) Administer with 0.2 micron filter. New Bag/Syringe/Bottle 01/04/2022 2:10 PM EDT 200 mg Inactive Administered Medications - up to 3 most recent administrations Medication Order MAR Action Action Date Dose Rate Site dexAMETHasone 10 mg/NS 50 mL (PYXIS) 10 mg ivpb (DECADRON) 10 mg, INTRAVENOUS, ONCE, 1 dose, On Sat06/19/22 at 1000, Administer 30 minutes prior to infusion. Refrigerate. New Bag/Syringe/Bottle 06/19/2022 9:52 AM EST 10 mg diphenhydrAMINE 25 mg injection (BENADRYL) 25 mg, INTRAVENOUS, ONCE, 1 dose, On Sat06/19/22 at 1000, Give prior to chemotherapy. Given 06/19/2022 9:50 AM EST 50 mg DOCEtaxel 80 mg in NaCl 0.9% 118 mL (TAXOTERE) 80 mg (rounded from 81.55 mg = 35 mg/m2 2.33 m2 Treatment Plan BSA from Recorded weight), INTRAVENOUS, Administer over 1 Hours, ONCE, 1 dose, On Sat06/19/22 at 1000, ANTINEOPLASTIC IRRITANT NON-PVC container. Infuse via Non-DEHP set. exp 1000 06/20/22 (room temp) Hazardous Chemotherapy Drug: Use appropriate PPE. Antineoplastic Irritant. New Bag/Syringe/Bottle 06/19/2022 10:15 AM EST 80 mg famotidine 20 mg injection (PEPCID) 20 mg, INTRAVENOUS, ONCE, 1 dose, On Sat06/19/22 at 1000, Give prior to chemotherapy. REFRIGERATE Given 06/19/2022 9:48 AM EST 20 mg Inactive Administered Medications - up to 3 most recent administrations Medication Order MAR Action Action Date Dose Rate Site dexAMETHasone 10 mg/NS 50 mL (PYXIS) 10 mg ivpb (DECADRON) 10 mg, INTRAVENOUS, ONCE, 1 dose, On Sat06/26/22 at 1000, Administer 30 minutes prior to infusion. Refrigerate. New Bag/Syringe/Bottle 06/26/2022 9:56 AM EST 10 mg diphenhydrAMINE 25 mg injection (BENADRYL) 25 mg, INTRAVENOUS, ONCE, 1 dose, On Sat06/26/22 at 1000, Give prior to chemotherapy. Given 06/26/2022 9:53 AM EST 25 mg DOCEtaxel 80 mg in NaCl 0.9% 118 mL (TAXOTERE) 80 mg (rounded from 81.55 mg = 35 mg/m2 2.33 m2 Treatment Plan BSA from Recorded weight), INTRAVENOUS, Administer over 1 Hours, ONCE, 1 dose, On Sat06/26/22 at 1000, ANTINEOPLASTIC IRRITANT NON-PVC container. Infuse via Non-DEHP set. exp 0945 06/26/22 (room temp) Hazardous Chemotherapy Drug: Use appropriate PPE. Antineoplastic Irritant. New Bag/Syringe/Bottle 06/26/2022 10:14 AM EST 80 mg famotidine 20 mg injection (PEPCID) 20 mg, INTRAVENOUS, ONCE, 1 dose, On Sat06/26/22 at 1000, Give prior to chemotherapy. REFRIGERATE Given 06/26/2022 9:55 AM EST 20 mg Inactive Administered Medications - up to 3 most recent administrations Medication Order MAR Action Action Date Dose Rate Site dexAMETHasone 10 mg/NS 50 mL (PYXIS) 10 mg ivpb (DECADRON) 10 mg, INTRAVENOUS, ONCE, 1 dose, On Sat07/03/22 at 1500, Administer 30 minutes prior to infusion. Refrigerate. New Bag/Syringe/Bottle 07/03/2022 2:40 PM EST 10 mg diphenhydrAMINE 25 mg injection (BENADRYL) 25 mg, INTRAVENOUS, ONCE, 1 dose, On Sat07/03/22 at 1500, Give prior to chemotherapy. Given 07/03/2022 2:43 PM EST 25 mg DOCEtaxel 80 mg in NaCl 0.9% 118 mL (TAXOTERE) 80 mg (rounded from 81.55 mg = 35 mg/m2 2.33 m2 Treatment Plan BSA from Recorded weight), INTRAVENOUS, Administer over 1 Hours, ONCE, 1 dose, On Sat07/03/22 at 1500, ANTINEOPLASTIC IRRITANT NON-PVC container. Infuse via Non-DEHP set. Approx Total Volume: mL EXP: 07/04 @ 1800 Hazardous Chemotherapy Drug: Use appropriate PPE. Antineoplastic Irritant. New Bag/Syringe/Bottle 07/03/2022 3:00 PM EST 80 mg famotidine 20 mg injection (PEPCID) 20 mg, INTRAVENOUS, ONCE, 1 dose, On Sat07/03/22 at 1500, Give prior to chemotherapy. REFRIGERATE Given 07/03/2022 2:42 PM EST 20 mg Inactive Administered Medications - up to 3 most recent administrations Medication Order MAR Action Action Date Dose Rate Site dexAMETHasone 10 mg/NS 50 mL (PYXIS) 10 mg ivpb (DECADRON) 10 mg, INTRAVENOUS, ONCE, 1 dose, On Sat07/17/22 at 1000, Administer 30 minutes prior to infusion. Refrigerate. New Bag/Syringe/Bottle 07/17/2022 10:04 AM EST 10 mg diphenhydrAMINE 25 mg injection (BENADRYL) 25 mg, INTRAVENOUS, ONCE, 1 dose, On Sat07/17/22 at 1000, Give prior to chemotherapy. Given 07/17/2022 10:00 AM EST 50 mg DOCEtaxel 80 mg in NaCl 0.9% 118 mL (TAXOTERE) 80 mg (rounded from 81.55 mg = 35 mg/m2 2.33 m2 Treatment Plan BSA from Recorded weight), INTRAVENOUS, Administer over 1 Hours, ONCE, 1 dose, On Sat07/17/22 at 1000, ANTINEOPLASTIC IRRITANT NON-PVC container. Infuse via Non-DEHP set. exp 1000 07/18/22 (room temp) Hazardous Chemotherapy Drug: Use appropriate PPE. Antineoplastic Irritant. New Bag/Syringe/Bottle 07/17/2022 10:28 AM EST 80 mg famotidine 20 mg injection (PEPCID) 20 mg, INTRAVENOUS, ONCE, 1 dose, On Sat07/17/22 at 1000, Give prior to chemotherapy. REFRIGERATE Given 07/17/2022 10:02 AM EST 20 mg Inactive Administered Medications - up to 3 most recent administrations Medication Order MAR Action Action Date Dose Rate Site dexAMETHasone 10 mg/NS 50 mL (PYXIS) 10 mg ivpb (DECADRON) 10 mg, INTRAVENOUS, ONCE, 1 dose, On Sat07/24/22 at 1000, Administer 30 minutes prior to infusion. Refrigerate. New Bag/Syringe/Bottle 07/24/2022 9:52 AM EST 10 mg diphenhydrAMINE 25 mg injection (BENADRYL) 25 mg, INTRAVENOUS, ONCE, 1 dose, On Sat07/24/22 at 1000, Give prior to chemotherapy. Given 07/24/2022 9:48 AM EST 50 mg DOCEtaxel 80 mg in NaCl 0.9% 118 mL (TAXOTERE) 80 mg (rounded from 81.55 mg = 35 mg/m2 2.33 m2 Treatment Plan BSA from Recorded weight), INTRAVENOUS, Administer over 1 Hours, ONCE, 1 dose, On Sat07/24/22 at 1000, ANTINEOPLASTIC IRRITANT NON-PVC container. Infuse via Non-DEHP set. exp 99907/25/22 (room temp) Hazardous Chemotherapy Drug: Use appropriate PPE. Antineoplastic Irritant. New Bag/Syringe/Bottle 07/24/2022 10:09 AM EST 80 mg famotidine 20 mg injection (PEPCID) 20 mg, INTRAVENOUS, ONCE, 1 dose, On Sat07/24/22 at 1000, Give prior to chemotherapy. REFRIGERATE Given 07/24/2022 9:50 AM EST 20 mg Inactive Administered Medications - up to 3 most recent administrations Medication Order MAR Action Action Date Dose Rate Site dexAMETHasone 10 mg/NS 50 mL (PYXIS) 10 mg ivpb (DECADRON) 10 mg, INTRAVENOUS, ONCE, 1 dose, On Sat07/31/22 at 1400, Administer 30 minutes prior to infusion. Refrigerate. New Bag/Syringe/Bottle 07/31/2022 2:18 PM EST 10 mg diphenhydrAMINE 25 mg injection (BENADRYL) 25 mg, INTRAVENOUS, ONCE, 1 dose, On Sat07/31/22 at 1400, Give prior to chemotherapy. Given 07/31/2022 2:14 PM EST 25 mg DOCEtaxel 80 mg in NaCl 0.9% 118 mL (TAXOTERE) 80 mg (rounded from 81.55 mg = 35 mg/m2 2.33 m2 Treatment Plan BSA from Recorded weight), INTRAVENOUS, Administer over 1 Hours, ONCE, 1 dose, On Sat07/31/22 at 1400, ANTINEOPLASTIC IRRITANT NON-PVC container. Infuse via Non-DEHP set. exp 1400 08/01/22 (room temp) Hazardous Chemotherapy Drug: Use appropriate PPE. Antineoplastic Irritant. New Bag/Syringe/Bottle 07/31/2022 2:36 PM EST 80 mg famotidine 20 mg injection (PEPCID) 20 mg, INTRAVENOUS, ONCE, 1 dose, On Sat07/31/22 at 1400, Give prior to chemotherapy. REFRIGERATE Given 07/31/2022 2:16 PM EST 20 mg Inactive Administered Medications - up to 3 most recent administrations Medication Order MAR Action Action Date Dose Rate Site dexAMETHasone 10 mg/NS 50 mL (PYXIS) 10 mg ivpb (DECADRON) 10 mg, INTRAVENOUS, ONCE, 1 dose, On Sat08/14/22 at 1000, Administer 30 minutes prior to infusion. Refrigerate. New Bag/Syringe/Bottle 08/14/2022 10:13 AM EST 10 mg diphenhydrAMINE 25 mg injection (BENADRYL) 25 mg, INTRAVENOUS, ONCE, 1 dose, On Sat08/14/22 at 1000, Give prior to chemotherapy. Given 08/14/2022 10:10 AM EST 25 mg DOCEtaxel 80 mg in NaCl 0.9% 118 mL (TAXOTERE) 80 mg (rounded from 81.55 mg = 35 mg/m2 2.33 m2 Treatment Plan BSA from Recorded weight), INTRAVENOUS, Administer over 1 Hours, ONCE, 1 dose, On Sat08/14/22 at 1000, ANTINEOPLASTIC IRRITANT NON-PVC container. Infuse via Non-DEHP set. exp 1000 08/15/22 (room temp) Hazardous Chemotherapy Drug: Use appropriate PPE. Antineoplastic Irritant. New Bag/Syringe/Bottle 08/14/2022 10:31 AM EST 80 mg famotidine 20 mg injection (PEPCID) 20 mg, INTRAVENOUS, ONCE, 1 dose, On Sat08/14/22 at 1000, Give prior to chemotherapy. REFRIGERATE Given 08/14/2022 10:12 AM EST 20 mg Inactive Administered Medications - up to 3 most recent administrations Medication Order MAR Action Action Date Dose Rate Site dexAMETHasone 10 mg/NS 50 mL (PYXIS) 10 mg ivpb (DECADRON) 10 mg, INTRAVENOUS, ONCE, 1 dose, On Sat08/21/22 at 1100, Administer 30 minutes prior to infusion. Refrigerate. New Bag/Syringe/Bottle 08/21/2022 11:39 AM EST 10 mg diphenhydrAMINE 25 mg injection (BENADRYL) 25 mg, INTRAVENOUS, ONCE, 1 dose, On Sat08/21/22 at 1100, Give prior to chemotherapy. Given 08/21/2022 11:36 AM EST 25 mg DOCEtaxel 80 mg in NaCl 0.9% 118 mL (TAXOTERE) 80 mg (rounded from 81.55 mg = 35 mg/m2 2.33 m2 Treatment Plan BSA from Recorded weight), INTRAVENOUS, Administer over 1 Hours, ONCE, 1 dose, On Sat08/21/22 at 1100, ANTINEOPLASTIC IRRITANT NON-PVC container. Infuse via Non-DEHP set. Approx Total Volume EXP: 08/23/22 1100 (room temp) Hazardous Chemotherapy Drug: Use appropriate PPE. Antineoplastic Irritant. New Bag/Syringe/Bottle 08/21/2022 12:04 PM EST 80 mg famotidine 20 mg injection (PEPCID) 20 mg, INTRAVENOUS, ONCE, 1 dose, On Sat08/21/22 at 1100, Give prior to chemotherapy. REFRIGERATE Given 08/21/2022 11:37 AM EST 20 mg Inactive Administered Medications - up to 3 most recent administrations Medication Order MAR Action Action Date Dose Rate Site dexAMETHasone 10 mg/NS 50 mL (PYXIS) 10 mg ivpb (DECADRON) 10 mg, INTRAVENOUS, ONCE, 1 dose, On Sat08/28/22 at 1400, Administer 30 minutes prior to infusion. Refrigerate. New Bag/Syringe/Bottle 08/28/2022 2:09 PM EST 10 mg diphenhydrAMINE 25 mg injection (BENADRYL) 25 mg, INTRAVENOUS, ONCE, 1 dose, On Sat08/28/22 at 1400, Give prior to chemotherapy. Given 08/28/2022 2:06 PM EST 25 mg DOCEtaxel 80 mg in NaCl 0.9% 118 mL (TAXOTERE) 80 mg (rounded from 81.55 mg = 35 mg/m2 2.33 m2 Treatment Plan BSA from Recorded weight), INTRAVENOUS, Administer over 1 Hours, ONCE, 1 dose, On Sat08/28/22 at 1400, ANTINEOPLASTIC IRRITANT NON-PVC container. Infuse via Non-DEHP set. exp 09/01/22 (refrigerated) Hazardous Chemotherapy Drug: Use appropriate PPE. Antineoplastic Irritant. New Bag/Syringe/Bottle 08/28/2022 2:33 PM EST 80 mg famotidine 20 mg injection (PEPCID) 20 mg, INTRAVENOUS, ONCE, 1 dose, On Sat08/28/22 at 1400, Give prior to chemotherapy. REFRIGERATE Given 08/28/2022 2:04 PM EST 20 mg Inactive Administered Medications - up to 3 most recent administrations Medication Order MAR Action Action Date Dose Rate Site dexAMETHasone 10 mg/NS 50 mL (PYXIS) 10 mg ivpb (DECADRON) 10 mg, INTRAVENOUS, ONCE, 1 dose, On Sat09/11/22 at 1000, Administer 30 minutes prior to infusion. Refrigerate. New Bag/Syringe/Bottle 09/11/2022 9:52 AM EST 10 mg diphenhydrAMINE 25 mg injection (BENADRYL) 25 mg, INTRAVENOUS, ONCE, 1 dose, On Sat09/11/22 at 1000, Give prior to chemotherapy. Given 09/11/2022 9:50 AM EST 25 mg DOCEtaxel 80 mg in NaCl 0.9% 118 mL (TAXOTERE) 80 mg (rounded from 81.55 mg = 35 mg/m2 2.33 m2 Treatment Plan BSA from Recorded weight), INTRAVENOUS, Administer over 1 Hours, ONCE, 1 dose, On Sat09/11/22 at 1000, ANTINEOPLASTIC IRRITANT NON-PVC container. Infuse via Non-DEHP [place]. exp 99909/13/22 (room temp) Hazardous Chemotherapy Drug: Use appropriate PPE. Antineoplastic Irritant. New Bag/Syringe/Bottle 09/11/2022 10:11 AM EST 80 mg famotidine 20 mg injection (PEPCID) 20 mg, INTRAVENOUS, ONCE, 1 dose, On Sat09/11/22 at 1000, Give prior to chemotherapy. REFRIGERATE Given 09/11/2022 9:48 AM EST 20 mg Inactive Administered Medications - up to 3 most recent administrations Medication Order MAR Action Action Date Dose Rate Site dexAMETHasone 10 mg/NS 50 mL (PYXIS) 10 mg ivpb (DECADRON) 10 mg, INTRAVENOUS, ONCE, 1 dose, On Sat09/18/22 at 1400, Administer 30 minutes prior to infusion. Refrigerate. New Bag/Syringe/Bottle 09/18/2022 1:50 PM EST 10 mg diphenhydrAMINE 25 mg injection (BENADRYL) 25 mg, INTRAVENOUS, ONCE, 1 dose, On Sat09/18/22 at 1400, Give prior to chemotherapy. Given 09/18/2022 1:48 PM EST 25 mg DOCEtaxel 80 mg in NaCl 0.9% 118 mL (TAXOTERE) 80 mg (rounded from 81.55 mg = 35 mg/m2 2.33 m2 Treatment Plan BSA from Recorded weight), INTRAVENOUS, Administer over 1 Hours, ONCE, 1 dose, On Sat09/18/22 at 1400, ANTINEOPLASTIC IRRITANT NON-PVC container. Infuse via Non-DEHP set. exp 1300 09/20/22 (room temp) Hazardous Chemotherapy Drug: Use appropriate PPE. Antineoplastic Irritant. New Bag/Syringe/Bottle 09/18/2022 2:10 PM EST 80 mg famotidine 20 mg injection (PEPCID) 20 mg, INTRAVENOUS, ONCE, 1 dose, On Sat09/18/22 at 1400, Give prior to chemotherapy. REFRIGERATE Given 09/18/2022 1:48 PM EST 20 mg Inactive Administered Medications - up to 3 most recent administrations Medication Order MAR Action Action Date Dose Rate Site dexAMETHasone 10 mg/NS 50 mL (PYXIS) 10 mg ivpb (DECADRON) 10 mg, INTRAVENOUS, ONCE, 1 dose, On Sat09/25/22 at 1030, Administer 30 minutes prior to infusion. Refrigerate. New Bag/Syringe/Bottle 09/25/2022 10:32 AM EST 10 mg diphenhydrAMINE 25 mg injection (BENADRYL) 25 mg, INTRAVENOUS, ONCE, 1 dose, On Sat09/25/22 at 1030, Give prior to chemotherapy. Given 09/25/2022 10:32 AM EST 25 mg DOCEtaxel 80 mg in NaCl 0.9% 118 mL (TAXOTERE) 80 mg (rounded from 81.55 mg = 35 mg/m2 2.33 m2 Treatment Plan BSA from Recorded weight), INTRAVENOUS, Administer over 1 Hours, ONCE, 1 dose, On Sat09/25/22 at 1030, ANTINEOPLASTIC IRRITANT NON-PVC container. Infuse via Non-DEHP set. Approx Total Volume: EXP: 09/27/22 1030 Hazardous Chemotherapy Drug: Use appropriate PPE. Antineoplastic Irritant. New Bag/Syringe/Bottle 09/25/2022 11:00 AM EST 80 mg famotidine 20 mg injection (PEPCID) 20 mg, INTRAVENOUS, ONCE, 1 dose, On Sat09/25/22 at 1030, Give prior to chemotherapy. REFRIGERATE Given 09/25/2022 10:30 AM EST 20 mg Inactive Administered Medications - up to 3 most recent administrations Medication Order MAR Action Action Date Dose Rate Site dexAMETHasone 10 mg/NS 50 mL (PYXIS) 10 mg ivpb (DECADRON) 10 mg, INTRAVENOUS, ONCE, 1 dose, On Sat10/09/22 at 1030, Administer 30 minutes prior to infusion. Refrigerate. New Bag/Syringe/Bottle 10/09/2022 10:41 AM EST 10 mg diphenhydrAMINE 25 mg injection (BENADRYL) 25 mg, INTRAVENOUS, ONCE, 1 dose, On Sat10/09/22 at 1030, Give prior to chemotherapy. Given 10/09/2022 10:41 AM EST 25 mg DOCEtaxel 80 mg in NaCl 0.9% 118 mL (TAXOTERE) 80 mg (rounded from 81.55 mg = 35 mg/m2 2.33 m2 Treatment Plan BSA from Recorded weight), INTRAVENOUS, Administer over 1 Hours, ONCE, 1 dose, On Sat10/09/22 at 1030, ANTINEOPLASTIC IRRITANT NON-PVC container. Infuse via Non-DEHP set. exp 10/13/21 (refrigerated) Hazardous Chemotherapy Drug: Use appropriate PPE. Antineoplastic Irritant. New Bag/Syringe/Bottle 10/09/2022 11:06 AM EST 80 mg famotidine 20 mg injection (PEPCID) 20 mg, INTRAVENOUS, ONCE, 1 dose, On Sat10/09/22 at 1030, Give prior to chemotherapy. REFRIGERATE Given 10/09/2022 10:41 AM EST 20 mg Inactive Administered Medications - up to 3 most recent administrations Medication Order MAR Action Action Date Dose Rate Site dexAMETHasone 10 mg/NS 50 mL (PYXIS) 10 mg ivpb (DECADRON) 10 mg, INTRAVENOUS, ONCE, 1 dose, On Sat10/23/22 at 1000, Administer 30 minutes prior to infusion. Refrigerate. New Bag/Syringe/Bottle 10/23/2022 9:49 AM EDT 10 mg diphenhydrAMINE 25 mg injection (BENADRYL) 25 mg, INTRAVENOUS, ONCE, 1 dose, On Sat10/23/22 at 1000, Give prior to chemotherapy. Given 10/23/2022 9:49 AM EDT 25 mg DOCEtaxel 80 mg in NaCl 0.9% 118 mL (TAXOTERE) 80 mg (rounded from 81.55 mg = 35 mg/m2 2.33 m2 Treatment Plan BSA from Recorded weight), INTRAVENOUS, Administer over 1 Hours, ONCE, 1 dose, On Sat10/23/22 at 1000, ANTINEOPLASTIC IRRITANT NON-PVC container. Infuse via Non-DEHP set. exp 1000 10/24/22 (room temp) Hazardous Chemotherapy Drug: Use appropriate PPE. Antineoplastic Irritant. New Bag/Syringe/Bottle 10/23/2022 10:12 AM EDT 80 mg famotidine 20 mg injection (PEPCID) 20 mg, INTRAVENOUS, ONCE, 1 dose, On Sat10/23/22 at 1000, Give prior to chemotherapy. REFRIGERATE Given 10/23/2022 9:49 AM EDT 20 mg Inactive Administered Medications - up to 3 most recent administrations Medication Order MAR Action Action Date Dose Rate Site dexAMETHasone 10 mg/NS 50 mL (PYXIS) 10 mg ivpb (DECADRON) 10 mg, INTRAVENOUS, ONCE, 1 dose, On Sat11/06/22 at 1400, Administer 30 minutes prior to infusion. Refrigerate. New Bag/Syringe/Bottle 11/06/2022 2:00 PM EDT 10 mg diphenhydrAMINE 25 mg injection (BENADRYL) 25 mg, INTRAVENOUS, ONCE, 1 dose, On Sat11/06/22 at 1400, Give prior to chemotherapy. Given 11/06/2022 1:58 PM EDT 25 mg DOCEtaxel 80 mg in NaCl 0.9% 118 mL (TAXOTERE) 80 mg (rounded from 81.55 mg = 35 mg/m2 2.33 m2 Treatment Plan BSA from Recorded weight), INTRAVENOUS, Administer over 1 Hours, ONCE, 1 dose, On Sat11/06/22 at 1400, ANTINEOPLASTIC IRRITANT NON-PVC container. Infuse via Non-DEHP set. exp 1300 11/08/22 (room temp) Hazardous Chemotherapy Drug: Use appropriate PPE. Antineoplastic Irritant. New Bag/Syringe/Bottle 11/06/2022 2:15 PM EDT 80 mg famotidine 20 mg injection (PEPCID) 20 mg, INTRAVENOUS, ONCE, 1 dose, On Sat11/06/22 at 1400, Give prior to chemotherapy. REFRIGERATE Given 11/06/2022 1:58 PM EDT 20 mg Inactive Administered Medications - up to 3 most recent administrations Medication Order MAR Action Action Date Dose Rate Site dexAMETHasone 10 mg/NS 50 mL (PYXIS) 10 mg ivpb (DECADRON) 10 mg, INTRAVENOUS, ONCE, 1 dose, On Sat11/13/22 at 1000, Administer 30 minutes prior to infusion. Refrigerate. New Bag/Syringe/Bottle 11/13/2022 9:50 AM EDT 10 mg diphenhydrAMINE 25 mg injection (BENADRYL) 25 mg, INTRAVENOUS, ONCE, 1 dose, On Sat11/13/22 at 1000, Give prior to chemotherapy. Given 11/13/2022 9:51 AM EDT 25 mg DOCEtaxel 80 mg in NaCl 0.9% 118 mL (TAXOTERE) 80 mg (rounded from 81.55 mg = 35 mg/m2 2.33 m2 Treatment Plan BSA from Recorded weight), INTRAVENOUS, Administer over 1 Hours, ONCE, 1 dose, On Sat11/13/22 at 1000, ANTINEOPLASTIC IRRITANT NON-PVC container. Infuse via Non-DEHP set. exp 11/16/22 (refrigerated) Hazardous Chemotherapy Drug: Use appropriate PPE. Antineoplastic Irritant. New Bag/Syringe/Bottle 11/13/2022 10:10 AM EDT 80 mg famotidine 20 mg injection (PEPCID) 20 mg, INTRAVENOUS, ONCE, 1 dose, On Sat11/13/22 at 1000, Give prior to chemotherapy. REFRIGERATE Given 11/13/2022 9:52 AM EDT 20 mg Reason for Referral Specialty Diagnoses / Procedures Referred By Contac t Referred To Contact CT IMAGING Diagnoses Chemotherapy induced pulmonary toxicity Procedures CT CHEST WO IVCON DIAGNOSTIC COMPUTED TOMOGRAPHY THORAX W/O CNTRST Margarita Collins MD [address] [place] [address] Ct Imaging Referral ID Status Reason Start Date Expiration Date Visits Requested Visits Authorized [id number] Pending Review Auto-Generat ed Referral 01/01/2022 12/20/2022 1 1 Referral ID Status Reason Start Date Expiration Date V isits Requested Visits Authorized [id number] Closed Auto-Generate d Referral 01/01/2022 12/20/2022 1 1 Specialty Diagnoses / Procedures Referred By Contac t Referred To Contact CT IMAGING Diagnoses Interstitial pulmonary disease (HCC) Procedures CT CHEST WO IVCON DIAGNOSTIC COMPUTED TOMOGRAPHY THORAX W/O CNTRST Dave Noble DO [address] [place] [address] Ct Imaging Referral ID Status Reason Start Date Expiration Date Visits Requested Visits Authorized [id number] Authorized Auto-Generat ed Referral 01/23/2022 02/22/2023 1 1 Referral ID Status Reason Start Date Expiration Date V isits Requested Visits Authorized [id number] Closed Auto-Generate d Referral 01/23/2022 02/22/2023 1 1 Specialty Diagnoses / Procedures Referred By Contac t Referred To Contact Pulmonary and Critical Care Medicine / PULMONARY MEDICINE Diagnoses 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) Chronic cough Procedures CONSULT TO PULM/CRITICAL CARE NEW PATIENT VISIT LEVEL 5 Dave Noble Gt, DO [address] [place] [address] Pulm [facility] [address] [place] [address] Referral ID Status Reason Start Date Expiration Date V isits Requested Visits Authorized [id number] Closed PCP Requested Referral 05/31/2021 05/31/2022 1 1 Referral ID Status Reason Start Date Expiration Date Visits Requested Visits Authorized [id number] Authorized Auto-Generat ed Referral 03/19/2022 04/18/2023 1 1 Referral ID Status Reason Start Date Expiration Date V isits Requested Visits Authorized [id number] Closed Auto-Generate d Referral 03/19/2022 04/18/2023 1 1 Specialty Diagnoses / Procedures Referred By Contac t Referred To Contact CT IMAGING Diagnoses 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) Procedures CT CHEST WO IVCON DIAGNOSTIC COMPUTED TOMOGRAPHY THORAX W/O CNTRST Dave Noble, DO [address] 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) Procedures CT CHEST WO IVCON DIAGNOSTIC COMPUTED TOMOGRAPHY THORAX W/O CNTRST Xuan Lora, [employer] DEVELOPER.[employer] P[employer] INSPECTOR [address] [place] [address] Ct Imaging Referral ID Status Reason Start Date Expiration Date Visits Requested Visits Authorized [id number] Authorized Auto-Generat ed Referral 11/06/2022 12/06/2023 1 1 Specialty Diagnoses / Procedures Referred By Contac t Referred To Contact CT IMAGING Diagnoses Malignant neoplasm of unspecified part of unspecified bronchus or lung (HCC) Procedures CT ABD/PEL WO IVCON CT ABD & PELVIS [place] [address] [place] [address] Ct Imaging Referral ID Status Reason Start Date Expiration Date Visits Requested Visits Authorized [id number] Authorized Auto-Generat ed Referral 02/04/2023 03/05/2024 1 1 Specialty Diagnoses / Procedures Referred By Contac t Referred To Contact CT IMAGING Diagnoses Malignant neoplasm of unspecified part of unspecified bronchus or lung (HCC) Procedures CT CHEST WO IVCON DIAGNOSTIC COMPUTED TOMOGRAPHY THORAX W/[place] [address] [place] [address] Ct Imaging Referral ID Status Reason Start Date Expiration Date Visits Requested Visits Authorized [id number] Authorized Auto-Generat ed Referral 02/04/2023 03/05/2024 1 1 Specialty Diagnoses / Procedures Referred By Contac t Referred To Contact CT IMAGING Diagnoses Malignant neoplasm of unspecified part of unspecified bronchus or lung (HCC) 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) Procedures CT CHEST WO IVCON DIAGNOSTIC COMPUTED TOMOGRAPHY THORAX W/O CNTRST Masci Dave A, DO [address] [place] [address] Ct Imaging Referral ID Status Reason Start Date Expiration Date Visits Requested Visits Authorized [id number] Authorized Auto-Generat ed Referral 03/04/2023 04/02/2024 1 1 Specialty Diagnoses / Procedures Referred By Contac t Referred To Contact CT IMAGING Diagnoses 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) Procedures CT CHEST WO IVCON DIAGNOSTIC COMPUTED TOMOGRAPHY THORAX W/O CNTRST Masci Dave A, DO [address] [place] [address] [place] [address] Referral ID Status Reason Start Date Expiration Date Visits Requested Visits Authorized [id number] Authorized Auto-Generat ed Referral 07/02/2024 1 1 Specialty Diagnoses / Procedures Referred By Contac t Referred To Contact Diagnoses 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) Procedures CT SIM PLANNING RADIATION ONCOLOGY THER RAD SIMULAJ-AIDED FIELD SETTING COMPLEX Renny Briggs MD, [address] [place] [address] Referral ID Status Reason Start Date Expiration Date Visits Requested Visits Authorized [id number] Pending Review PCP Requested Referral 06/05/2023 09/03/2023 1 1 Specialty Diagnoses / Procedures Referred By Contac t Referred To Contact CT IMAGING Diagnoses 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) Procedures CT CHEST WO IVCON DIAGNOSTIC COMPUTED TOMOGRAPHY THORAX W/O CNTRST Dave Noble DO [address] [facility] [place] [address] Ct [place] [facility] Referral ID Status Reason Start Date Expiration Date V isits Requested Visits Authorized [id number] Closed Auto-Generate d Referral 07/16/2022 08/15/2023 1 1 Specialty Diagnoses / Procedures Referred By Contac t Referred To Contact CT IMAGING Diagnoses Malignant neoplasm of unspecified part of unspecified bronchus or lung (HCC) Procedures CT ABD/PEL WO IVCON CT ABD & PELVIS [place] [id number] [place] [address] Referral ID Status Reason Start Date Expiration Date V isits Requested Visits Authorized [id number] Closed Auto-Generate d Referral 02/04/2023 03/05/2024 1 1 Specialty Diagnoses / Procedures Referred By Contac t Referred To Contact CT IMAGING Diagnoses Malignant neoplasm of unspecified part of unspecified bronchus or lung (HCC) Procedures CT CHEST WO IVCON DIAGNOSTIC COMPUTED TOMOGRAPHY THORAX W/[place] [address] [place] [address] [place] [address] Referral ID Status Reason Start Date Expiration Date V isits Requested Visits Authorized [id number] Closed Auto-Generate d Referral 02/04/2023 03/05/2024 1 1 Specialty Diagnoses / Procedures Referred By Contac t Referred To Contact CT IMAGING Diagnoses 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) Procedures CT CHEST WO IVCON DIAGNOSTIC COMPUTED TOMOGRAPHY THORAX W/O CNTRST Xuan Lora, [employer]ONAT[employer]OR [address] [place] [address] [place] [address] Referral ID Status Reason Start Date Expiration Date V isits Requested Visits Authorized [id number] Closed Auto-Generate d Referral 11/06/2022 12/06/2023 1 1 Specialty Diagnoses / Procedures Referred By Contac t Referred To Contact CT IMAGING Diagnoses Malignant neoplasm of unspecified part of unspecified bronchus or lung (HCC) Procedures CT CHEST WO IVCON DIAGNOSTIC COMPUTED TOMOGRAPHY THORAX W/O [facility] Dave Noble, DO [address] [place] [address] [place] [address] Referral ID Status Reason Start Date Expiration Date Visits Requested Visits Authorized [id number] Authorized Auto-Generat ed Referral 09/10/2023 10/09/2024 1 1 Additional Source Comments (unrecognized sect ion and content) No Status Records FoundNo Status Records FoundNo Status Records Found INFORMATION SOURCE (unrecogn ized section and content) DATE CREATED AUTHOR AUTHOR'S ORGANIZ ATION 09/03/2023 [facility] DATE CREATED AUTHOR AUTHOR'S ORGANIZ ATION 09/18/2023 [facility] Source Comments (unrecognize d section and content) In the event this informatio n is protected by the Federal Confidentiality of Alcohol and Drug Abuse Patient Records regulations: The Federal rules restrict any use of the information to criminally investigate or prosecute any alcohol or drug abuse patient.[facility] the event this information is protected by the Federal Confidentiality of Alcohol and Drug Abuse Patient Records regulations: The Federal rules restrict any use of the information to criminally investigate or prosecute any alcohol or drug abuse patient.[facility] HospitalIn the event this information is protected by the Federal Confidentiality of Alcohol and Drug Abuse Patient Records regulations: The Federal rules restrict any use of the information to criminally investigate or prosecute any alcohol or drug abuse patient.[facility] HospitalIn the event this information is protected by the Federal Confidentiality of Alcohol and Drug Abuse Patient Records regulations: The Federal rules restrict any use of the information to criminally investigate or prosecute any alcohol or drug abuse patient.[facility] HospitalIn the event this information is protected by the Federal Confidentiality of Alcohol and Drug Abuse Patient Records regulations: The Federal rules restrict any use of the information to criminally investigate or prosecute any alcohol or drug abuse patient.[facility] HospitalIn the event this information is protected by the Federal Confidentiality of Alcohol and Drug Abuse Patient Records regulations: The Federal rules restrict any use of the information to criminally investigate or prosecute any alcohol or drug abuse patient.[facility] HospitalIn the event this information is protected by the Federal Confidentiality of Alcohol and Drug Abuse Patient Records regulations: The Federal rules restrict any use of the information to criminally investigate or prosecute any alcohol or drug abuse patient.[facility] HospitalIn the event this information is protected by the Federal Confidentiality of Alcohol and Drug Abuse Patient Records regulations: The Federal rules restrict any use of the information to criminally investigate or prosecute any alcohol or drug abuse patient.[facility] HospitalIn the event this information is protected by the Federal Confidentiality of Alcohol and Drug Abuse Patient Records regulations: The Federal rules restrict any use of the information to criminally investigate or prosecute any alcohol or drug abuse patient.[facility] HospitalIn the event this information is protected by the Federal Confidentiality of Alcohol and Drug Abuse Patient Records regulations: The Federal rules restrict any use of the information to criminally investigate or prosecute any alcohol or drug abuse patient.[facility] HospitalIn the event this information is protected by the Federal Confidentiality of Alcohol and Drug Abuse Patient Records regulations: The Federal rules restrict any use of the information to criminally investigate or prosecute any alcohol or drug abuse patient.[facility] HospitalIn the event this information is protected by the Federal Confidentiality of Alcohol and Drug Abuse Patient Records regulations: The Federal rules restrict any use of the information to criminally investigate or prosecute any alcohol or drug abuse patient.[facility] HospitalIn the event this information is protected by the Federal Confidentiality of Alcohol and Drug Abuse Patient Records regulations: The Federal rules restrict any use of the information to criminally investigate or prosecute any alcohol or drug abuse patient.[facility] HospitalIn the event this information is protected by the Federal Confidentiality of Alcohol and Drug Abuse Patient Records regulations: The Federal rules restrict any use of the information to criminally investigate or prosecute any alcohol or drug abuse patient.[facility] HospitalIn the event this information is protected by the Federal Confidentiality of Alcohol and Drug Abuse Patient Records regulations: The Federal rules restrict any use of the information to criminally investigate or prosecute any alcohol or drug abuse patient.[facility] HospitalIn the event this information is protected by the Federal Confidentiality of Alcohol and Drug Abuse Patient Records regulations: The Federal rules restrict any use of the information to criminally investigate or prosecute any alcohol or drug abuse patient.[facility] HospitalIn the event this information is protected by the Federal Confidentiality of Alcohol and Drug Abuse Patient Records regulations: The Federal rules restrict any use of the information to criminally investigate or prosecute any alcohol or drug abuse patient.[facility] HospitalIn the event this information is protected by the Federal Confidentiality of Alcohol and Drug Abuse Patient Records regulations: The Federal rules restrict any use of the information to criminally investigate or prosecute any alcohol or drug abuse patient.[facility] HospitalIn the event this information is protected by the Federal Confidentiality of Alcohol and Drug Abuse Patient Records regulations: The Federal rules restrict any use of the information to criminally investigate or prosecute any alcohol or drug abuse patient.[facility] HospitalIn the event this information is protected by the Federal Confidentiality of Alcohol and Drug Abuse Patient Records regulations: The Federal rules restrict any use of the information to criminally investigate or prosecute any alcohol or drug abuse patient.[facility] HospitalIn the event this information is protected by the Federal Confidentiality of Alcohol and Drug Abuse Patient Records regulations: The Federal rules restrict any use of the information to criminally investigate or prosecute any alcohol or drug abuse patient.[facility] HospitalIn the event this information is protected by the Federal Confidentiality of Alcohol and Drug Abuse Patient Records regulations: The Federal rules restrict any use of the information to criminally investigate or prosecute any alcohol or drug abuse patient.[facility] HospitalIn the event this information is protected by the Federal Confidentiality of Alcohol and Drug Abuse Patient Records regulations: The Federal rules restrict any use of the information to criminally investigate or prosecute any alcohol or drug abuse patient.[facility] HospitalIn the event this information is protected by the Federal Confidentiality of Alcohol and Drug Abuse Patient Records regulations: The Federal rules restrict any use of the information to criminally investigate or prosecute any alcohol or drug abuse patient.[facility] HospitalIn the event this information is protected by the Federal Confidentiality of Alcohol and Drug Abuse Patient Records regulations: The Federal rules restrict any use of the information to criminally investigate or prosecute any alcohol or drug abuse patient.[facility] HospitalIn the event this information is protected by the Federal Confidentiality of Alcohol and Drug Abuse Patient Records regulations: The Federal rules restrict any use of the information to criminally investigate or prosecute any alcohol or drug abuse patient.[facility] HospitalIn the event this information is protected by the Federal Confidentiality of Alcohol and Drug Abuse Patient Records regulations: The Federal rules restrict any use of the information to criminally investigate or prosecute any alcohol or drug abuse patient.[facility] HospitalIn the event this information is protected by the Federal Confidentiality of Alcohol and Drug Abuse Patient Records regulations: The Federal rules restrict any use of the information to criminally investigate or prosecute any alcohol or drug abuse patient.[facility] HospitalIn the event this information is protected by the Federal Confidentiality of Alcohol and Drug Abuse Patient Records regulations: The Federal rules restrict any use of the information to criminally investigate or prosecute any alcohol or drug abuse patient.[facility] HospitalIn the event this information is protected by the Federal Confidentiality of Alcohol and Drug Abuse Patient Records regulations: The Federal rules restrict any use of the information to criminally investigate or prosecute any alcohol or drug abuse patient.[facility] HospitalIn the event this information is protected by the Federal Confidentiality of Alcohol and Drug Abuse Patient Records regulations: The Federal rules restrict any use of the information to criminally investigate or prosecute any alcohol or drug abuse patient.[facility] HospitalIn the event this information is protected by the Federal Confidentiality of Alcohol and Drug Abuse Patient Records regulations: The Federal rules restrict any use of the information to criminally investigate or prosecute any alcohol or drug abuse patient.[facility] HospitalIn the event this information is protected by the Federal Confidentiality of Alcohol and Drug Abuse Patient Records regulations: The Federal rules restrict any use of the information to criminally investigate or prosecute any alcohol or drug abuse patient.[facility] HospitalIn the event this information is protected by the Federal Confidentiality of Alcohol and Drug Abuse Patient Records regulations: The Federal rules restrict any use of the information to criminally investigate or prosecute any alcohol or drug abuse patient.[facility] HospitalIn the event this information is protected by the Federal Confidentiality of Alcohol and Drug Abuse Patient Records regulations: The Federal rules restrict any use of the information to criminally investigate or prosecute any alcohol or drug abuse patient.[facility] HospitalIn the event this information is protected by the Federal Confidentiality of Alcohol and Drug Abuse Patient Records regulations: The Federal rules restrict any use of the information to criminally investigate or prosecute any alcohol or drug abuse patient.[facility] HospitalIn the event this information is protected by the Federal Confidentiality of Alcohol and Drug Abuse Patient Records regulations: The Federal rules restrict any use of the information to criminally investigate or prosecute any alcohol or drug abuse patient.[facility] HospitalIn the event this information is protected by the Federal Confidentiality of Alcohol and Drug Abuse Patient Records regulations: The Federal rules restrict any use of the information to criminally investigate or prosecute any alcohol or drug abuse patient.[facility] HospitalIn the event this information is protected by the Federal Confidentiality of Alcohol and Drug Abuse Patient Records regulations: The Federal rules restrict any use of the information to criminally investigate or prosecute any alcohol or drug abuse patient.[facility] HospitalIn the event this information is protected by the Federal Confidentiality of Alcohol and Drug Abuse Patient Records regulations: The Federal rules restrict any use of the information to criminally investigate or prosecute any alcohol or drug abuse patient.[facility] HospitalIn the event this information is protected by the Federal Confidentiality of Alcohol and Drug Abuse Patient Records regulations: The Federal rules restrict any use of the information to criminally investigate or prosecute any alcohol or drug abuse patient.[facility] HospitalIn the event this information is protected by the Federal Confidentiality of Alcohol and Drug Abuse Patient Records regulations: The Federal rules restrict any use of the information to criminally investigate or prosecute any alcohol or drug abuse patient.[facility] HospitalIn the event this information is protected by the Federal Confidentiality of Alcohol and Drug Abuse Patient Records regulations: The Federal rules restrict any use of the information to criminally investigate or prosecute any alcohol or drug abuse patient.[facility] HospitalIn the event this information is protected by the Federal Confidentiality of Alcohol and Drug Abuse Patient Records regulations: The Federal rules restrict any use of the information to criminally investigate or prosecute any alcohol or drug abuse patient.[facility] HospitalIn the event this information is protected by the Federal Confidentiality of Alcohol and Drug Abuse Patient Records regulations: The Federal rules restrict any use of the information to criminally investigate or prosecute any alcohol or drug abuse patient.[facility] HospitalIn the event this information is protected by the Federal Confidentiality of Alcohol and Drug Abuse Patient Records regulations: The Federal rules restrict any use of the information to criminally investigate or prosecute any alcohol or drug abuse patient.[facility] HospitalIn the event this information is protected by the Federal Confidentiality of Alcohol and Drug Abuse Patient Records regulations: The Federal rules restrict any use of the information to criminally investigate or prosecute any alcohol or drug abuse patient.[facility] HospitalIn the event this information is protected by the Federal Confidentiality of Alcohol and Drug Abuse Patient Records regulations: The Federal rules restrict any use of the information to criminally investigate or prosecute any alcohol or drug abuse patient.[facility] HospitalIn the event this information is protected by the Federal Confidentiality of Alcohol and Drug Abuse Patient Records regulations: The Federal rules restrict any use of the information to criminally investigate or prosecute any alcohol or drug abuse patient.[facility] HospitalIn the event this information is protected by the Federal Confidentiality of Alcohol and Drug Abuse Patient Records regulations: The Federal rules restrict any use of the information to criminally investigate or prosecute any alcohol or drug abuse patient.[facility] HospitalIn the event this information is protected by the Federal Confidentiality of Alcohol and Drug Abuse Patient Records regulations: The Federal rules restrict any use of the information to criminally investigate or prosecute any alcohol or drug abuse patient.[facility] HospitalIn the event this information is protected by the Federal Confidentiality of Alcohol and Drug Abuse Patient Records regulations: The Federal rules restrict any use of the information to criminally investigate or prosecute any alcohol or drug abuse patient.[facility] HospitalIn the event this information is protected by the Federal Confidentiality of Alcohol and Drug Abuse Patient Records regulations: The Federal rules restrict any use of the information to criminally investigate or prosecute any alcohol or drug abuse patient.[facility] HospitalIn the event this information is protected by the Federal Confidentiality of Alcohol and Drug Abuse Patient Records regulations: The Federal rules restrict any use of the information to criminally investigate or prosecute any alcohol or drug abuse patient.[facility] HospitalIn the event this information is protected by the Federal Confidentiality of Alcohol and Drug Abuse Patient Records regulations: The Federal rules restrict any use of the information to criminally investigate or prosecute any alcohol or drug abuse patient.[facility] HospitalIn the event this information is protected by the Federal Confidentiality of Alcohol and Drug Abuse Patient Records regulations: The Federal rules restrict any use of the information to criminally investigate or prosecute any alcohol or drug abuse patient.[facility] HospitalIn the event this information is protected by the Federal Confidentiality of Alcohol and Drug Abuse Patient Records regulations: The Federal rules restrict any use of the information to criminally investigate or prosecute any alcohol or drug abuse patient.[facility] HospitalIn the event this information is protected by the Federal Confidentiality of Alcohol and Drug Abuse Patient Records regulations: The Federal rules restrict any use of the information to criminally investigate or prosecute any alcohol or drug abuse patient.[facility] HospitalIn the event this information is protected by the Federal Confidentiality of Alcohol and Drug Abuse Patient Records regulations: The Federal rules restrict any use of the information to criminally investigate or prosecute any alcohol or drug abuse patient.[facility] HospitalIn the event this information is protected by the Federal Confidentiality of Alcohol and Drug Abuse Patient Records regulations: The Federal rules restrict any use of the information to criminally investigate or prosecute any alcohol or drug abuse patient.[facility] HospitalIn the event this information is protected by the Federal Confidentiality of Alcohol and Drug Abuse Patient Records regulations: The Federal rules restrict any use of the information to criminally investigate or prosecute any alcohol or drug abuse patient.[facility] HospitalIn the event this information is protected by the Federal Confidentiality of Alcohol and Drug Abuse Patient Records regulations: The Federal rules restrict any use of the information to criminally investigate or prosecute any alcohol or drug abuse patient.[facility] HospitalIn the event this information is protected by the Federal Confidentiality of Alcohol and Drug Abuse Patient Records regulations: The Federal rules restrict any use of the information to criminally investigate or prosecute any alcohol or drug abuse patient.[facility] HospitalIn the event this information is protected by the Federal Confidentiality of Alcohol and Drug Abuse Patient Records regulations: The Federal rules restrict any use of the information to criminally investigate or prosecute any alcohol or drug abuse patient.[facility] HospitalIn the event this information is protected by the Federal Confidentiality of Alcohol and Drug Abuse Patient Records regulations: The Federal rules restrict any use of the information to criminally investigate or prosecute any alcohol or drug abuse patient.[facility] HospitalIn the event this information is protected by the Federal Confidentiality of Alcohol and Drug Abuse Patient Records regulations: The Federal rules restrict any use of the information to criminally investigate or prosecute any alcohol or drug abuse patient.[facility] HospitalIn the event this information is protected by the Federal Confidentiality of Alcohol and Drug Abuse Patient Records regulations: The Federal rules restrict any use of the information to criminally investigate or prosecute any alcohol or drug abuse patient.[facility] HospitalIn the event this information is protected by the Federal Confidentiality of Alcohol and Drug Abuse Patient Records regulations: The Federal rules restrict any use of the information to criminally investigate or prosecute any alcohol or drug abuse patient.[facility] HospitalIn the event this information is protected by the Federal Confidentiality of Alcohol and Drug Abuse Patient Records regulations: The Federal rules restrict any use of the information to criminally investigate or prosecute any alcohol or drug abuse patient.[facility] HospitalIn the event this information is protected by the Federal Confidentiality of Alcohol and Drug Abuse Patient Records regulations: The Federal rules restrict any use of the information to criminally investigate or prosecute any alcohol or drug abuse patient.[facility] HospitalIn the event this information is protected by the Federal Confidentiality of Alcohol and Drug Abuse Patient Records regulations: The Federal rules restrict any use of the information to criminally investigate or prosecute any alcohol or drug abuse patient.[facility] HospitalIn the event this information is protected by the Federal Confidentiality of Alcohol and Drug Abuse Patient Records regulations: The Federal rules restrict any use of the information to criminally investigate or prosecute any alcohol or drug abuse patient.[facility] HospitalIn the event this information is protected by the Federal Confidentiality of Alcohol and Drug Abuse Patient Records regulations: The Federal rules restrict any use of the information to criminally investigate or prosecute any alcohol or drug abuse patient.[facility] HospitalIn the event this information is protected by the Federal Confidentiality of Alcohol and Drug Abuse Patient Records regulations: The Federal rules restrict any use of the information to criminally investigate or prosecute any alcohol or drug abuse patient.[facility] HospitalIn the event this information is protected by the Federal Confidentiality of Alcohol and Drug Abuse Patient Records regulations: The Federal rules restrict any use of the information to criminally investigate or prosecute any alcohol or drug abuse patient.[facility] HospitalIn the event this information is protected by the Federal Confidentiality of Alcohol and Drug Abuse Patient Records regulations: The Federal rules restrict any use of the information to criminally investigate or prosecute any alcohol or drug abuse patient.[facility] HospitalIn the event this information is protected by the Federal Confidentiality of Alcohol and Drug Abuse Patient Records regulations: The Federal rules restrict any use of the information to criminally investigate or prosecute any alcohol or drug abuse patient.[facility] HospitalIn the event this information is protected by the Federal Confidentiality of Alcohol and Drug Abuse Patient Records regulations: The Federal rules restrict any use of the information to criminally investigate or prosecute any alcohol or drug abuse patient.[facility] HospitalIn the event this information is protected by the Federal Confidentiality of Alcohol and Drug Abuse Patient Records regulations: The Federal rules restrict any use of the information to criminally investigate or prosecute any alcohol or drug abuse patient.[facility] HospitalIn the event this information is protected by the Federal Confidentiality of Alcohol and Drug Abuse Patient Records regulations: The Federal rules restrict any use of the information to criminally investigate or prosecute any alcohol or drug abuse patient.[facility] HospitalIn the event this information is protected by the Federal Confidentiality of Alcohol and Drug Abuse Patient Records regulations: The Federal rules restrict any use of the information to criminally investigate or prosecute any alcohol or drug abuse patient.[facility] HospitalIn the event this information is protected by the Federal Confidentiality of Alcohol and Drug Abuse Patient Records regulations: The Federal rules restrict any use of the information to criminally investigate or prosecute any alcohol or drug abuse patient.[facility] HospitalIn the event this information is protected by the Federal Confidentiality of Alcohol and Drug Abuse Patient Records regulations: The Federal rules restrict any use of the information to criminally investigate or prosecute any alcohol or drug abuse patient.[facility] HospitalIn the event this information is protected by the Federal Confidentiality of Alcohol and Drug Abuse Patient Records regulations: The Federal rules restrict any use of the information to criminally investigate or prosecute any alcohol or drug abuse patient.[facility] HospitalIn the event this information is protected by the Federal Confidentiality of Alcohol and Drug Abuse Patient Records regulations: The Federal rules restrict any use of the information to criminally investigate or prosecute any alcohol or drug abuse patient.[facility] HospitalIn the event this information is protected by the Federal Confidentiality of Alcohol and Drug Abuse Patient Records regulations: The Federal rules restrict any use of the information to criminally investigate or prosecute any alcohol or drug abuse patient.[facility] HospitalIn the event this information is protected by the Federal Confidentiality of Alcohol and Drug Abuse Patient Records regulations: The Federal rules restrict any use of the information to criminally investigate or prosecute any alcohol or drug abuse patient.[facility] HospitalIn the event this information is protected by the Federal Confidentiality of Alcohol and Drug Abuse Patient Records regulations: The Federal rules restrict any use of the information to criminally investigate or prosecute any alcohol or drug abuse patient.[facility] HospitalIn the event this information is protected by the Federal Confidentiality of Alcohol and Drug Abuse Patient Records regulations: The Federal rules restrict any use of the information to criminally investigate or prosecute any alcohol or drug abuse patient.[facility] HospitalIn the event this information is protected by the Federal Confidentiality of Alcohol and Drug Abuse Patient Records regulations: The Federal rules restrict any use of the information to criminally investigate or prosecute any alcohol or drug abuse patient.[facility] HospitalIn the event this information is protected by the Federal Confidentiality of Alcohol and Drug Abuse Patient Records regulations: The Federal rules restrict any use of the information to criminally investigate or prosecute any alcohol or drug abuse patient.[facility] HospitalIn the event this information is protected by the Federal Confidentiality of Alcohol and Drug Abuse Patient Records regulations: The Federal rules restrict any use of the information to criminally investigate or prosecute any alcohol or drug abuse patient.[facility] HospitalIn the event this information is protected by the Federal Confidentiality of Alcohol and Drug Abuse Patient Records regulations: The Federal rules restrict any use of the information to criminally investigate or prosecute any alcohol or drug abuse patient.[facility] HospitalIn the event this information is protected by the Federal Confidentiality of Alcohol and Drug Abuse Patient Records regulations: The Federal rules restrict any use of the information to criminally investigate or prosecute any alcohol or drug abuse patient.[facility] HospitalIn the event this information is protected by the Federal Confidentiality of Alcohol and Drug Abuse Patient Records regulations: The Federal rules restrict any use of the information to criminally investigate or prosecute any alcohol or drug abuse patient.[facility] HospitalIn the event this information is protected by the Federal Confidentiality of Alcohol and Drug Abuse Patient Records regulations: The Federal rules restrict any use of the information to criminally investigate or prosecute any alcohol or drug abuse patient.[facility] HospitalIn the event this information is protected by the Federal Confidentiality of Alcohol and Drug Abuse Patient Records regulations: The Federal rules restrict any use of the information to criminally investigate or prosecute any alcohol or drug abuse patient.[facility] HospitalIn the event this information is protected by the Federal Confidentiality of Alcohol and Drug Abuse Patient Records regulations: The Federal rules restrict any use of the information to criminally investigate or prosecute any alcohol or drug abuse patient.[facility] HospitalIn the event this information is protected by the Federal Confidentiality of Alcohol and Drug Abuse Patient Records regulations: The Federal rules restrict any use of the information to criminally investigate or prosecute any alcohol or drug abuse patient.[facility] HospitalIn the event this information is protected by the Federal Confidentiality of Alcohol and Drug Abuse Patient Records regulations: The Federal rules restrict any use of the information to criminally investigate or prosecute any alcohol or drug abuse patient.[facility] HospitalIn the event this information is protected by the Federal Confidentiality of Alcohol and Drug Abuse Patient Records regulations: The Federal rules restrict any use of the information to criminally investigate or prosecute any alcohol or drug abuse patient.[facility] Reason for Visit (unrecogniz ed section and content) Reason Comments Established Patient Reason Comments Chemotherapy Treatment Specialty Diagnoses / Procedures Referred By Contac t Referred To Contact Diagnoses 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 Reason Comments Follow Up Pulmonary [facility] Reason Comments Radiology CT Specialty Diagnoses / Procedures Referred By Contac t Referred To Contact CT IMAGING Diagnoses Chemotherapy induced pulmonary toxicity Procedures CT CHEST WO IVCON DIAGNOSTIC COMPUTED TOMOGRAPHY THORAX W/O CNTMargarita Cordero MD [address] [place] [address] Ct Imaging Referral ID Status Reason Start Date Expiration Date V isits Requested Visits Authorized [id number] Closed Auto-Generate d Referral 01/01/2022 12/20/2022 1 1 Reason Comments Appointment Rescheduled Specialty Diagnoses / Procedures Referred By Contac t Referred To Contact Diagnoses 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 [facility] [place] [address] Ct Imaging Referral ID Status Reason Start Date Expiration Date V isits Requested Visits Authorized [id number] Closed Auto-Generate d Referral 01/23/2022 02/22/2023 1 1 Reason Comments Opened In Error Reason Comments Results CT chest Reason Comments Radiology NM Specialty Diagnoses / Procedures Referred By Contac t Referred To Contact MOLECULAR & FUNCTIONAL IMAGING Diagnoses Lung nodules Cancer of trachea, bronchus, and lung (HCC) Procedures NM PET/CT SKULL-THIGH SUBSEQUENT PET IMAGING CT ATTENUATION SKULL BASE MID-THIGH Dave Noble, DO [address] [facility] [place] [address] Molecular & Functional Imaging [phone] [id number] Referral ID Status Reason Start Date Expiration Date V isits Requested Visits Authorized [id number] Closed Auto-Generate d Referral 02/17/2022 03/19/2023 1 1 Reason Comments Follow Up Results Reason Comments Established Patient Cough Referral ID Status Reason Start Date Expiration Date V isits Requested Visits Authorized [id number] Closed Auto-Generate d Referral 03/19/2022 04/18/2023 1 1 Reason Comments Established Patient 2 mo follow up, CT Reason Comments Generation Engineer - Other Changing treatm ent Reason Comments Spirometry Specialty Diagnoses / Procedures Referred By Contac t Referred To Contact [facility] Diagnoses SOB (shortness of breath) Procedures SPIROMETRY WITH DILATOR IF OBSTRUCTED BRNCDILAT RSPSE SPMTRY PRE&POST-BRNCDILAT ADMMargarita La MD [address] [place] [address] Res[facility] [place] [address] [place] [address] Referral ID Status Reason Start Date Expiration Date V isits Requested Visits Authorized [id number] Closed Auto-Generate d Referral 04/10/2022 05/10/2023 1 1 Specialty Diagnoses / Procedures Referred By Contac t Referred To Contact [facility] Diagnoses SOB (shortness of breath) Procedures LUNG VOLUMES Margarita Collins MD [address] [place] [address] Res[facility] [place] [address] [place] [address] Referral ID Status Reason Start Date Expiration Date V isits Requested Visits Authorized [id number] Closed Auto-Generate d Referral 04/10/2022 05/10/2023 1 1 Reason Comments Generation Engineer - Other Treatment Plann ing Reason Comments Informed Consent 12 Month Follow Up Specialty Diagnoses / Procedures [facility] To Contact Diagnoses 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, bronchus, and lung (HCC) Dave Noble DO [address] [place] [place] [address] [facility] [address] [place] [address] Referral ID Status Reason Start Date Expiration Date V isits Requested Visits Authorized [id number] Authorized 05/24/2022 08/22/2022 99 99 Reason Comments Generation Engineer - Other C1D1 Post Treat ment Call (docetaxel) Reason Comments Patient Update Reason Comments Generation Engineer - Other Symptoms Reason Comments Chemotherapy Treatment Reason Onset Date Comments Refill Request 09/11/2022 Reason Comments Established Patient follow up cough Reason Comments Generation Engineer - Other Follow-up Reason Comments Established Patient Cough Reason Comments Generation Engineer - Other Follow-up Reason Comments Results Increase in BUN and serum creatinine Reason Comments Appointment Reason Comments Refill Request Reason Onset Date Comments Refill Request 12/04/2022 Reason Comments Established Patient Reason Comments Established Patient COPD Reason Comments Scheduling Lung Bx Reason Onset Date Comments Refill Request 05/09/2023 Reason Comments Orders Reason Comments Appointment Reason Comments Radiology NM Reason Onset Date Comments Simulation Request Form 06/05/2023 Specialty Diagnoses / Procedures [facility] To Contact CT [facility] Diagnoses Malignant neoplasm of unspecified part of unspecified bronchus or lung (HCC) Procedures CT ABD/PEL WO IVCON CT ABD & PELVIS [place] [address] [place] [address] [place] [address] Referral ID Status Reason Start Date Expiration Date V isits Requested Visits Authorized [id number] Closed Auto-Generate d Referral 02/04/2023 03/05/2024 1 1 Specialty Diagnoses / Procedures Referred By Contac t Referred To Contact CT IMAGING Diagnoses 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) Procedures CT CHEST WO IVCON DIAGNOSTIC COMPUTED TOMOGRAPHY THORAX W/O CNTRST Dave Noble, DO [address] [place] [address] [place] [address] Referral ID Status Reason Start Date Expiration Date V isits Requested Visits Authorized [id number] Closed Auto-Generate d Referral 07/16/2022 08/15/2023 [address] Specialty Diagnoses / Procedures Referred By Contac t Referred To Contact CT IMAGING Diagnoses 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) Procedures CT CHEST WO IVCON DIAGNOSTIC COMPUTED TOMOGRAPHY THORAX W/O CNTRST Xuan Lora APRN.OIL PIPE INSPECTOR [address] [place] [address] [place] [address] Referral ID Status Reason Start Date Expiration Date V isits Requested Visits Authorized [id number] Closed Auto-Generate d Referral 11/06/2022 12/06/2023 1 1 Reason Comments Radiotherapy On-treatment Visit Reason Onset Date Comments Refill Request 11/27/2022 Reason Comments Patient Education Reason Comments Medication Problem Care Teams (unrecognized sec tion and content) Greenhouse Specialist Relationship Specialty Start Date End Date David Chandler Chi PCP - General Gerontology 09/24/16 Renny Briggs MD, [address] [place], [place] [id number] Physician Radiation Oncology 11/02/19 Nohelia Contreras RN Specialty Generation Engineer Oncology 05/29/21 Greenhouse Specialist Relationship Specialty Start Date End Date David Chandler Chi PCP - General Gerontology 09/24/16 Renny Briggs MD, [address] [place] [address] Physician Radiation Oncology 11/02/19 Nohelia Contreras RN Specialty Generation Engineer Oncology 05/29/21 Greenhouse Specialist Relationship Specialty Start Date End Date David Chandler Chi PCP - General Gerontology 09/24/16 Renny Briggs MD, [address] [facility] [place] [address] Physician Radiation Oncology 11/02/19 Nohelia Contreras RN Specialty Generation Engineer Oncology 05/29/21 Greenhouse Specialist Relationship Specialty Start Date End Date David Chandler Chi PCP - General Gerontology 09/24/16 Renny Briggs MD, [address] [place] [address] Physician Radiation Oncology 11/02/19 Nohelia Contreras RN Specialty Generation Engineer Oncology 05/29/21 Greenhouse Specialist Relationship Specialty Start Date End Date David Chandler Chi PCP - General Gerontology 09/24/16 Renny Briggs MD, [address] [place] [address] Physician Radiation Oncology 11/02/19 Nohelia Contreras RN Specialty Generation Engineer Oncology 05/29/21 Greenhouse Specialist Relationship Specialty Start Date End Date David Chandler Chi PCP - General Gerontology 09/24/16 Renny Briggs MD, [address] [place] [address] Physician Radiation Oncology 11/02/19 Nohelia Contreras RN Specialty Generation Engineer Oncology 05/29/21 Greenhouse Specialist Relationship Specialty Start Date End Date David Chandler Chi PCP - General Gerontology 09/24/16 Renny Briggs MD, [address] [place] [address] Physician Radiation Oncology 11/02/19 Nohelia Contreras RN Specialty Generation Engineer Oncology 05/29/21 Greenhouse Specialist Relationship Specialty Start Date End Date David Chandler Chi PCP - General Gerontology 09/24/16 Renny Briggs MD, [address] [place] [address] Physician Radiation Oncology 11/02/19 Nohelia Contreras RN Specialty Generation Engineer Oncology 05/29/21 Greenhouse Specialist Relationship Specialty Start Date End Date David Chandler Chi PCP - General Gerontology 09/24/16 Renny Briggs MD, [address] [place] [address] Physician Radiation Oncology 11/02/19 Nohelia Contreras RN Specialty Generation Engineer Oncology 05/29/21 Greenhouse Specialist Relationship Specialty Start Date End Date David Chandler Chi PCP - General Gerontology 09/24/16 Renny Briggs MD, [address] [place] [address] Physician Radiation Oncology 11/02/19 Nohelia Contreras RN Specialty Generation Engineer Oncology 05/29/21 Greenhouse Specialist Relationship Specialty Start Date End Date David Chandler Chi PCP - General Gerontology 09/24/16 Renny Briggs MD, [address] [place] [address] Physician Radiation Oncology 11/02/19 Nohelia Contreras RN Specialty Generation Engineer Oncology 05/29/21 Greenhouse Specialist Relationship Specialty Start Date End Date David Chandler Chi PCP - General Gerontology 09/24/16 Renny Briggs MD, [address] [place] [address] Physician Radiation Oncology 11/02/19 Nohelia Contreras RN Specialty Generation Engineer Oncology 05/29/21 Greenhouse Specialist Relationship Specialty Start Date End Date David Chandler Chi PCP - General Gerontology 09/24/16 Renny Briggs MD, [address] [place] [address] Physician Radiation Oncology 11/02/19 Nohelia Contreras RN Specialty Generation Engineer Oncology 05/29/21 Greenhouse Specialist Relationship Specialty Start Date End Date David Chandler Chi PCP - General Gerontology 09/24/16 Renny Briggs MD, [address] [place] [address] Physician Radiation Oncology 11/02/19 Nohelia Contreras RN Specialty Generation Engineer Oncology 05/29/21 Greenhouse Specialist Relationship Specialty Start Date End Date David Chandler Chi PCP - General Gerontology 09/24/16 Renny Briggs MD, [address] [place] [address] Physician Radiation Oncology 11/02/19 Nohelia Contreras RN Specialty Generation Engineer Oncology 05/29/21 Greenhouse Specialist Relationship Specialty Start Date End Date David Chandler Chi PCP - General Gerontology 09/24/16 Renny Briggs MD, [address] [place] [place] [address] Physician Radiation Oncology 11/02/19 Nohelia Contreras RN Specialty Generation Engineer Oncology 05/29/21 Greenhouse Specialist Relationship Specialty Start Date End Date David Chandler Chi PCP - General Gerontology 09/24/16 Renny Briggs MD, [address] [facility] [address] [facility] [place] [address] Physician Radiation Oncology 11/02/19 Nohelia Contreras RN Specialty Generation Engineer Oncology 05/29/21 Greenhouse Specialist Relationship Specialty Start Date End Date David Chandler Chi PCP - General Gerontology 09/24/16 Renny Briggs MD, [address] [facility] [place] [address] Physician Radiation Oncology 11/02/19 Nohelia Contreras RN Specialty Generation Engineer Oncology 05/29/21 Greenhouse Specialist Relationship Specialty Start Date End Date David Chandler Chi PCP - General Gerontology 09/24/16 Renny Briggs MD, [address] [facility] [address] [facility] [place] [address] Physician Radiation Oncology 11/02/19 Nohelia Contreras RN Specialty Generation Engineer Oncology 05/29/21 Greenhouse Specialist Relationship Specialty Start Date End Date Ramesh David Huffman PCP - General Gerontology 09/24/16 Renny Briggs MD, [address] [place] [address] Physician Radiation Oncology 11/02/19 Nohelia Contreras RN Specialty Generation Engineer Oncology 05/29/21 Greenhouse Specialist Relationship Specialty Start Date End Date David Chandler Chi PCP - General Gerontology 09/24/16 Renny Briggs MD, [address] [place] [address] Physician Radiation Oncology 11/02/19 Nohelia Contreras, RN Specialty Generation Engineer Oncology 05/29/21 Greenhouse Specialist Relationship Specialty Start Date End Date David Chandler Chi PCP - General Gerontology 09/24/16 Renny Briggs MD, [address] [place] [address] Physician Radiation Oncology 11/02/19 Nohelia Contreras RN Specialty Generation Engineer Oncology 05/29/21 Dave Noble, [address] [place] [address] Hematology/Oncology 03/19/22 Greenhouse Specialist Relationship Specialty Start Date End Date David Chandler Chi PCP - General Gerontology 09/24/16 Renny Briggs MD, [address] [place] [address] Physician Radiation Oncology 11/02/19 Nohelia Contreras RN Specialty Generation Engineer Oncology 05/29/21 Dave Noble, [address] [place] [address] Hematology/Oncology 03/19/22 Greenhouse Specialist Relationship Specialty Start Date End Date David Chandler Chi PCP - General Gerontology 09/24/16 Renny Briggs MD, [address] [place] [address] Physician Radiation Oncology 11/02/19 Nohelia Contreras RN Specialty Generation Engineer Oncology 05/29/21 Dave Noble, DO [address] [place] [address] Hematology/Oncology 03/19/22 Greenhouse Specialist Relationship Specialty Start Date End Date David Chandler Nathanael PCP - General Gerontology 09/24/16 Renny Briggs MD, [address] [place] [address] Physician Radiation Oncology 11/02/19 Nohelia Contreras RN Specialty Generation Engineer Oncology 05/29/21 Dave Noble, DO [address] [place] [address] Hematology/Oncology 03/19/22 Greenhouse Specialist Relationship Specialty Start Date End Date Ramesh David Huffman PCP - General Gerontology 09/24/16 Renny Briggs MD, [address] [place] [address] Physician Radiation Oncology 11/02/19 Nohelia Contreras RN Specialty Generation Engineer Oncology 05/29/21 Dave Noble, DO [address] [place] [address] Hematology/Oncology 03/19/22 Greenhouse Specialist Relationship Specialty Start Date End Date Ramesh David Huffman PCP - General Gerontology 09/24/16 Renny Briggs MD, [address] [place] [address] Physician Radiation Oncology 11/02/19 Nohelia Contreras RN Specialty Generation Engineer Oncology 05/29/21 Dave Noble, DO [address] [place] [address] Hematology/Oncology 03/19/22 Greenhouse Specialist Relationship Specialty Start Date End Date David Chandler Chi PCP - General Gerontology 09/24/16 Renny Briggs MD, [address] [place] [address] Physician Radiation Oncology 11/02/19 Nohelia Contreras RN Specialty Generation Engineer Oncology 05/29/21 Dave Noble, DO [address] [place] [address] Hematology/Oncology 03/19/22 Greenhouse Specialist Relationship Specialty Start Date End Date David Chandler Chi PCP - General Gerontology 09/24/16 Renny Briggs MD, [address] [place] [address] Physician Radiation Oncology 11/02/19 Nohelia Contreras RN Specialty Generation Engineer Oncology 05/29/21 Dave Noble, [address] [place] [address] Hematology/Oncology 03/19/22 Estella Abad LISW [address] [place] [address] Petroleum Geologist Hematology/Oncology 05/30/22 Greenhouse Specialist Relationship Specialty Start Date End Date David Chandler Chi PCP - General Gerontology 09/24/16 Renny Briggs MD, [address] [place] [address] Physician Radiation Oncology 11/02/19 Nohelia Contreras RN Specialty Generation Engineer Oncology 05/29/21 Dave Noble DO [address] [place] [address] Hematology/Oncology 03/19/22 Estella Abad LISW [address] [place] [address] Petroleum Geologist Hematology/Oncology 05/30/22 Greenhouse Specialist Relationship Specialty Start Date End Date David Chandler Chi PCP - General Gerontology 09/24/16 Renny Briggs MD, [address] [place] [address] Physician Radiation Oncology 11/02/19 Nohelia Contreras RN Specialty Generation Engineer Oncology 05/29/21 Dave Noble DO [address] [place] [address] Hematology/Oncology 03/19/22 Estella Abad LISW [address] [place] [address] Petroleum Geologist Hematology/Oncology 05/30/22 Greenhouse Specialist Relationship Specialty Start Date End Date David Chandler Chi PCP - General Gerontology 09/24/16 Renny Briggs MD, [address] [place] [address] Physician Radiation Oncology 11/02/19 Nohelia Contreras RN Specialty Generation Engineer Oncology 05/29/21 Dave Noble DO [address] [place] [address] Hematology/Oncology 03/19/22 Estella Abad LISW [address] [place] [address] Petroleum Geologist Hematology/Oncology 05/30/22 Greenhouse Specialist Relationship Specialty Start Date End Date David Chandler Chi PCP - General Gerontology 09/24/16 Renny Briggs MD, [address] [place] [address] Physician Radiation Oncology 11/02/19 Nohelia Contreras RN Specialty Generation Engineer Oncology 05/29/21 Dave Noble DO [address] [place] [address] Hematology/Oncology 03/19/22 Estella Abad LISW [address] [place] [address] Petroleum Geologist Hematology/Oncology 05/30/22 Greenhouse Specialist Relationship Specialty Start Date End Date David Chandler Chi PCP - General Gerontology 09/24/16 Renny Briggs MD, [address] [place] [address] Physician Radiation Oncology 11/02/19 Nohelia Contreras RN Specialty Generation Engineer Oncology 05/29/21 Dave Noble DO [address] [place] [address] Hematology/Oncology 03/19/22 Estella Abda LISW [address] [place] [address] Petroleum Geologist Hematology/Oncology 05/30/22 Greenhouse Specialist Relationship Specialty Start Date End Date David Chandler Chi PCP - General Gerontology 09/24/16 Renny Briggs MD, [address] [place] [address] Physician Radiation Oncology 11/02/19 Nohelia Contreras RN Specialty Generation Engineer Oncology 05/29/21 Dave Noble, DO [address] [place] [address] Hematology/Oncology 03/19/22 Estella Abad LISW [address] [place] [address] Petroleum Geologist Hematology/Oncology 05/30/22 Greenhouse Specialist Relationship Specialty Start Date End Date David Chandler Chi PCP - General Gerontology 09/24/16 Renny Briggs MD, [address] [place] [address] Physician Radiation Oncology 11/02/19 Nohelia Contreras RN Specialty Generation Engineer Oncology 05/29/21 Dave Noble, DO [address] [place] [address] Hematology/Oncology 03/19/22 Estella Abad LISW [address] [place] [address] Petroleum Geologist Hematology/Oncology 05/30/22 Greenhouse Specialist Relationship Specialty Start Date End Date David Chandler Chi PCP - General Gerontology 09/24/16 Renny Briggs MD, [address] [place] [address] Physician Radiation Oncology 11/02/19 Nohelia Contreras RN Specialty Generation Engineer Oncology 05/29/21 Dave Noble, [address] [place] [address] Hematology/Oncology 03/19/22 Estella Abad LISW [address] [place] [address] Petroleum Geologist Hematology/Oncology 05/30/22 Greenhouse Specialist Relationship Specialty Start Date End Date David Chandler Chi PCP - General Gerontology 09/24/16 Renny Briggs MD, [address] [place] [address] Physician Radiation Oncology 11/02/19 Nohelia Contreras RN Specialty Generation Engineer Oncology 05/29/21 Dave Noble, DO [address] [place] [address] Hematology/Oncology 03/19/22 Estella Abad LISW [address] [place] [address] Petroleum Geologist Hematology/Oncology 05/30/22 Greenhouse Specialist Relationship Specialty Start Date End Date David Chandler Chi PCP - General Gerontology 09/24/16 Renny Briggs MD, [address] [place] [address] Physician Radiation Oncology 11/02/19 Nohelia Contreras RN Specialty Generation Engineer Oncology 05/29/21 Dave Noble, DO [address] [place] [address] Hematology/Oncology 03/19/22 Estella Abad LISW [address] [place] [address] Petroleum Geologist Hematology/Oncology 05/30/22 Greenhouse Specialist Relationship Specialty Start Date End Date David Chandler Chi PCP - General Gerontology 09/24/16 Renny Briggs MD, [address] [place] [address] Physician Radiation Oncology 11/02/19 Nohelia Contreras, RN Specialty Generation Engineer Oncology 05/29/21 Dave Noble DO [address] [place] [address] Hematology/Oncology 03/19/22 Estella Abad LISW [address] [place] [address] Petroleum Geologist Hematology/Oncology 05/30/22 Greenhouse Specialist Relationship Specialty Start Date End Date David Chandler Chi PCP - General Gerontology 09/24/16 Renny Briggs MD, [address] [place] [address] Physician Radiation Oncology 11/02/19 Nohelia Contreras RN Specialty Generation Engineer Oncology 05/29/21 Dave Noble DO [address] [place] [address] Hematology/Oncology 03/19/22 Estella Abad LISW [address] [place] [address] Petroleum Geologist Hematology/Oncology 05/30/22 Greenhouse Specialist Relationship Specialty Start Date End Date David Chandler Chi PCP - General Gerontology 09/24/16 Renny Briggs MD, [address] [place] [address] Physician Radiation Oncology 11/02/19 Nohelia Contreras RN Specialty Generation Engineer Oncology 05/29/21 Dave Noble DO [address] [place] [address] Hematology/Oncology 03/19/22 Estella Abad LISW [address] [place] [address] Petroleum Geologist Hematology/Oncology 05/30/22 Greenhouse Specialist Relationship Specialty Start Date End Date David Chandler Chi PCP - General Gerontology 09/24/16 Renny Briggs MD, [address] [place] [address] Physician Radiation Oncology 11/02/19 Nohelia Contreras RN Specialty Generation Engineer Oncology 05/29/21 Dave Noble DO [address] [place] [address] Hematology/Oncology 03/19/22 Estella Abad LISW [address] [place] [address] Petroleum Geologist Hematology/Oncology 05/30/22 Greenhouse Specialist Relationship Specialty Start Date End Date David Chandler Chi PCP - General Gerontology 09/24/16 Renny Briggs MD, [address] [place] [address] Physician Radiation Oncology 11/02/19 Nohelia Contreras RN Specialty Generation Engineer Oncology 05/29/21 Dave Noble DO [address] [place] [address] Hematology/Oncology 03/19/22 Estella Abad LISW [address] [place] [address] Petroleum Geologist Hematology/Oncology 05/30/22 Greenhouse Specialist Relationship Specialty Start Date End Date David Chandler Chi PCP - General Gerontology 09/24/16 Renny Briggs MD, [address] [place] [address] Physician Radiation Oncology 11/02/19 Nohelia Contreras RN Specialty Generation Engineer Oncology 05/29/21 Dave Noble DO [address] [place] [address] Hematology/Oncology 03/19/22 Estella Abad LISW [address] [place] [address] Petroleum Geologist Hematology/Oncology 05/30/22 Greenhouse Specialist Relationship Specialty Start Date End Date David Chandler Chi PCP - General Gerontology 09/24/16 Renny Briggs MD, [address] [place] [address] Physician Radiation Oncology 11/02/19 Nohelia Contreras RN Specialty Generation Engineer Oncology 05/29/21 Dave Noble DO [address] [place] [address] Hematology/Oncology 03/19/22 Estella Abad LISW [address] [place] [address] Petroleum Geologist Hematology/Oncology 05/30/22 Greenhouse Specialist Relationship Specialty Start Date End Date David Chandler Chi PCP - General Gerontology 09/24/16 Renny Briggs MD, [address] [place] [address] Physician Radiation Oncology 11/02/19 Nohelia Contreras RN Specialty Generation Engineer Oncology 05/29/21 Dave Noble DO [address] [place] [address] Hematology/Oncology 03/19/22 Estella Abad LISW [address] [place] [address] Petroleum Geologist Hematology/Oncology 05/30/22 Greenhouse Specialist Relationship Specialty Start Date End Date David Chandler Chi PCP - General Gerontology 09/24/16 Renny Briggs MDMD [address] [place] [address] Physician Radiation Oncology 11/02/19 Nohelia Contreras RN Specialty Generation Engineer Oncology 05/29/21 Dave Noble DO [address] [place] [address] Hematology/Oncology 03/19/22 Estella Abad LISW [address] [place] [address] Petroleum Geologist Hematology/Oncology 05/30/22 Greenhouse Specialist Relationship Specialty Start Date End Date David Chandler Chi PCP - General Gerontology 09/24/16 Renny Briggs MD, [address] [place] [address] Physician Radiation Oncology 11/02/19 Nohelia Contreras RN Specialty Generation Engineer Oncology 05/29/21 Dave Noble, DO [address] [place] [address] Hematology/Oncology 03/19/22 Estella Abad LISW [address] [place] [address] Petroleum Geologist Hematology/Oncology 05/30/22 Greenhouse Specialist Relationship Specialty Start Date End Date David Chandler Chi PCP - General Gerontology 09/24/16 Renny Briggs MD, [address] [place] [address] Physician Radiation Oncology 11/02/19 Nohelia Contreras RN Specialty Generation Engineer Oncology 05/29/21 Dave Noble DO [address] [place] [address] Hematology/Oncology 03/19/22 Heller, Estella, CRM CONSULTANT [address] [place] [address] Petroleum Geologist Hematology/Oncology 05/30/22 Greenhouse Specialist Relationship Specialty Start Date End Date David Chandler Chi PCP - General Gerontology 09/24/16 Renny Briggs MD, [address] [place] [address] Physician Radiation Oncology 11/02/19 Nohelia Contreras RN Specialty Generation Engineer Oncology 05/29/21 Dave Noble, DO [address] [place] [address] Hematology/Oncology 03/19/22 Estella Abad LISW [address] [place] [address] Petroleum Geologist Hematology/Oncology 05/30/22 Greenhouse Specialist Relationship Specialty Start Date End Date David Chandler Chi PCP - General Gerontology 09/24/16 Renny Briggs MD, [address] [place] [address] Physician Radiation Oncology 11/02/19 Nohelia Contreras RN Specialty Generation Engineer Oncology 05/29/21 Dave Noble, DO [address] [place] [address] Hematology/Oncology 03/19/22 Estella Abad LISW [address] [place] [address] Petroleum Geologist Hematology/Oncology 05/30/22 Greenhouse Specialist Relationship Specialty Start Date End Date David Chandler Chi PCP - General Gerontology 09/24/16 Renny Briggs MD, [address] [place] [address] Physician Radiation Oncology 11/02/19 Nohelia Contreras RN Specialty Generation Engineer Oncology 05/29/21 Dave Noble DO [address] [place] [address] Hematology/Oncology 03/19/22 Estella Abad LISW [address] [place] [address] Petroleum Geologist Hematology/Oncology 05/30/22 Greenhouse Specialist Relationship Specialty Start Date End Date David Chandler Chi PCP - General Gerontology 09/24/16 Renny Briggs MD, [address] [place] [address] Physician Radiation Oncology 11/02/19 Nohelia Contreras RN Specialty Generation Engineer Oncology 05/29/21 Dave Noble DO [address] [place] [address] Hematology/Oncology 03/19/22 Estella Abad LISW [address] [place] [address] Petroleum Geologist Hematology/Oncology 05/30/22 Greenhouse Specialist Relationship Specialty Start Date End Date David Chandler Chi PCP - General Gerontology 09/24/16 Renny Briggs MD, [address] [place] [address] Physician Radiation Oncology 11/02/19 Nohelia Contreras RN Specialty Generation Engineer Oncology 05/29/21 Dave Noble DO [address] [place] [address] Hematology/Oncology 03/19/22 Estella Abad LISW [address] [place] [address] Petroleum Geologist Hematology/Oncology 05/30/22 Greenhouse Specialist Relationship Specialty Start Date End Date David Chandler Chi PCP - General Gerontology 09/24/16 Renny Briggs MD, [address] [place] [address] Physician Radiation Oncology 11/02/19 Nohelia Contreras RN Specialty Generation Engineer Oncology 05/29/21 Dave Noble DO [address] [place] [address] Hematology/Oncology 03/19/22 Estella Abad LISW [address] [place] [address] Petroleum Geologist Hematology/Oncology 05/30/22 Greenhouse Specialist Relationship Specialty Start Date End Date David Chandler Chi PCP - General Gerontology 09/24/16 Renny Briggs MD, [address] [place] [address] Physician Radiation Oncology 11/02/19 Nohelia Contreras RN Specialty Generation Engineer Oncology 05/29/21 Dave Noble DO [address] [place] [address] Hematology/Oncology 03/19/22 Estella Abad LISW [address] [place] [address] Petroleum Geologist Hematology/Oncology 05/30/22 Greenhouse Specialist Relationship Specialty Start Date End Date David Chandler Chi PCP - General Gerontology 09/24/16 Renny Briggs MD, [address] [place] [address] Physician Radiation Oncology 11/02/19 Nohelia Contreras RN Specialty Generation Engineer Oncology 05/29/21 Dave Noble DO [address] [place] [address] Hematology/Oncology 03/19/22 Estella Abad LISW [address] [place] [address] Petroleum Geologist Hematology/Oncology 05/30/22 Greenhouse Specialist Relationship Specialty Start Date End Date David Chandler Chi PCP - General Gerontology 09/24/16 Renny Briggs MD, [address] [place] [address] Physician Radiation Oncology 11/02/19 Nohelia Contreras RN Specialty Generation Engineer Oncology 05/29/21 Dave Noble DO [address] [place] [address] Hematology/Oncology 03/19/22 Estella Abad LISW [address] [place] [address] Petroleum Geologist Hematology/Oncology 05/30/22 Greenhouse Specialist Relationship Specialty Start Date End Date David Chandler Chi PCP - General Gerontology 09/24/16 Renny Briggs MD, [address] [place] [address] Physician Radiation Oncology 11/02/19 Nohelia Contreras RN Specialty Generation Engineer Oncology 05/29/21 Dave Noble DO [address] [place] [address] Hematology/Oncology 03/19/22 Estella Abad LISW [address] [place] [address] Petroleum Geologist Hematology/Oncology 05/30/22 Greenhouse Specialist Relationship Specialty Start Date End Date Ramesh, David Huffman PCP - General Gerontology 09/24/16 Renny Briggs MD, [address] [place] [address] Physician Radiation Oncology 11/02/19 Nohelia Contreras RN Specialty Generation Engineer Oncology 05/29/21 Dave Noble DO [address] [place] [address] Hematology/Oncology 03/19/22 Estella Abad LISW [address] [place] [address] Petroleum Geologist Hematology/Oncology 05/30/22 Greenhouse Specialist Relationship Specialty Start Date End Date Ramesh, David Huffman PCP - General Gerontology 09/24/16 Renny Briggs MD, MD [address] [place] [address] Physician Radiation Oncology 11/02/19 Nohelia Contreras RN Specialty Generation Engineer Oncology 05/29/21 Dave Noble DO [address] [place] [address] Hematology/Oncology 03/19/22 Estella Abad LISW [address] [place] [address] Petroleum Geologist Hematology/Oncology 05/30/22 Greenhouse Specialist Relationship Specialty Start Date End Date Ramesh, David Huffman PCP - General Gerontology 09/24/16 Renny Briggs MD, [address] [place] [address] Physician Radiation Oncology 11/02/19 Nohelia Contreras RN Specialty Generation Engineer Oncology 05/29/21 Dave Noble DO [address] [place] [address] Hematology/Oncology 03/19/22 Estella Abad, CRM CONSULTANT [address] [place] [address] Petroleum Geologist Hematology/Oncology 05/30/22 Greenhouse Specialist Relationship Specialty Start Date End Date David Chandler Chi PCP - General Gerontology 09/24/16 Renny Briggs MD, [address] [place] [address] Physician Radiation Oncology 11/02/19 Nohelia Contreras RN Specialty Generation Engineer Oncology 05/29/21 Dave Noble DO [address] [place] [address] Hematology/Oncology 03/19/22 Estella Abad, CRM CONSULTANT [address] [place] [address] Petroleum Geologist Hematology/Oncology 05/30/22 Greenhouse Specialist Relationship Specialty Start Date End Date David Chandler Chi PCP - General Gerontology 09/24/16 Renny Briggs MD, [address] [place] [address] Physician Radiation Oncology 11/02/19 Nohelia Contreras RN Specialty Generation Engineer Oncology 05/29/21 Dave Noble DO [address] [place] [address] Hematology/Oncology 03/19/22 Estella Abad LISW [address] [place] [address] Petroleum Geologist Hematology/Oncology 05/30/22 Greenhouse Specialist Relationship Specialty Start Date End Date David Chandler Chi PCP - General Gerontology 09/24/16 Renny Briggs MD, [address] [place] [address] Physician Radiation Oncology 11/02/19 Nohelia Contreras RN Specialty Generation Engineer Oncology 05/29/21 Dave Noble DO [address] [place] [address] Hematology/Oncology 03/19/22 Estella Abad LISW [address] [place] [address] Petroleum Geologist Hematology/Oncology 05/30/22 Greenhouse Specialist Relationship Specialty Start Date End Date David Chandler Chi PCP - General Gerontology 09/24/16 Renny Briggs MD, [address] [place] [address] Physician Radiation Oncology 11/02/19 Nohelia Contreras RN Specialty Generation Engineer Oncology 05/29/21 Dave Noble DO [address] [place] [address] Hematology/Oncology 03/19/22 Estella Abad LISW [address] [place] [address] Petroleum Geologist Hematology/Oncology 05/30/22 Greenhouse Specialist Relationship Specialty Start Date End Date Ramesh David Huffman PCP - General Gerontology 09/24/16 Renny Briggs MD, [address] [place] [address] Physician Radiation Oncology 11/02/19 Nohelia Contreras RN Specialty Generation Engineer Oncology 05/29/21 Dave Noble DO [address] [place] [address] Hematology/Oncology 03/19/22 Estella Abad LISW [address] [place] [address] Petroleum Geologist Hematology/Oncology 05/30/22 Greenhouse Specialist Relationship Specialty Start Date End Date Ramesh, David Huffman PCP - General Gerontology 09/24/16 Renny Briggs MD, MD [address] [place] [address] Physician Radiation Oncology 11/02/19 Nohelia Contreras RN Specialty Generation Engineer Oncology 05/29/21 Dave Noble DO [address] [place] [address] Hematology/Oncology 03/19/22 Estella Abad LISW [address] [place] [address] Petroleum Geologist Hematology/Oncology 05/30/22 Greenhouse Specialist Relationship Specialty Start Date End Date David Chandler Chi PCP - General Gerontology 09/24/16 Renny Briggs MD, [address] [place] [address] Physician Radiation Oncology 11/02/19 Nohelia Contreras RN Specialty Generation Engineer Oncology 05/29/21 Dave Noble DO [address] [place] [address] Hematology/Oncology 03/19/22 Estella Abad LISW [address] [place] [address] Petroleum Geologist Hematology/Oncology 05/30/22 Greenhouse Specialist Relationship Specialty Start Date End Date David Chandler Chi PCP - General Gerontology 09/24/16 Renny Briggs MD, [address] [place] [address] Physician Radiation Oncology 11/02/19 Nohelia Contreras RN Specialty Generation Engineer Oncology 05/29/21 Dave Noble DO [address] [place] [address] Hematology/Oncology 03/19/22 Estella Abad CRM CONSULTANT [address] [place] [address] Petroleum Geologist Hematology/Oncology 05/30/22 Greenhouse Specialist Relationship Specialty Start Date End Date David Chandler Chi PCP - General Gerontology 09/24/16 Renny Briggs MD, [address] [place] [address] Physician Radiation Oncology 11/02/19 Nohelia Contreras RN Specialty Generation Engineer Oncology 05/29/21 Dave Noble DO [address] [place] [address] Hematology/Oncology 03/19/22 Estella Abad LISW [address] [place] [address] Petroleum Geologist Hematology/Oncology 05/30/22 Greenhouse Specialist Relationship Specialty Start Date End Date David Chandler Chi PCP - General Gerontology 09/24/16 Renny Briggs MD, [address] [place] [address] Physician Radiation Oncology 11/02/19 Nohelia Contreras RN Specialty Generation Engineer Oncology 05/29/21 Dave Noble DO [address] [place] [address] Hematology/Oncology 03/19/22 Estella Abad LISW [address] [place] [address] Petroleum Geologist Hematology/Oncology 05/30/22 Greenhouse Specialist Relationship Specialty Start Date End Date David Chandler Chi PCP - General Gerontology 09/24/16 Renny Briggs MD [address] [place] [address] Physician Radiation Oncology 11/02/19 Nohelia Contreras RN Specialty Generation Engineer Oncology 05/29/21 Dave Noble DO [address] [place] [address] Hematology/Oncology 03/19/22 Estella Abad LISW [address] [place] [address] Petroleum Geologist Hematology/Oncology 05/30/22 Greenhouse Specialist Relationship Specialty Start Date End Date David Chandler Chi PCP - General Gerontology 09/24/16 Renny Briggs MD [address] [facility] [place], [place] [address] Physician Radiation Oncology 11/02/19 Nohelia Contreras RN Specialty Generation Engineer Oncology 05/29/21 Dave Noble DO [address] [facility], [place] [id number] Hematology/Oncology 03/19/22 Estella Abad LISW [address] [place] [address] Petroleum Geologist Hematology/Oncology 05/30/22 FOR RECORDS PERTAINING TO PATIENTS WHO ARE OR HAVE BEEN ENROLLED IN A CHEMICAL DEPENDENCY/SUBSTANCEABUSE PROGRAM, SOME INFORMATION MAY BE OMITTED. This clinical summary was aggregated from multiple sources. Caution should be exercised in using it in the provision of clinical care. This summary normalizes information from multiple sources, and as a consequence, information in this document may materially change the coding, format and clinical context of patient data. In addition, data may be omitted in some cases. CLINICAL DECISIONS SHOULD BE BASED ON THE PRIMARY CLINICAL RECORDS. [facility]. provides no warranty or guarantee of the accuracy or completeness of information in this document.
== END | disposition home or self-care (01) ==
LOC: CVS 06:43
PROVIDERS: PCP Family Medicine Geriatric Medicine; Referring Provider Internal Medicine Hematology & Oncology; Visit Provider Internal Medicine Hematology & Oncology
DX: I34.0 Nonrheumatic mitral (valve) insufficiency (principal); R05.3 Chronic cough; R06.00 Dyspnea, unspecified; R06.89 Other abnormalities of breathing
CPT/HCPCS: 93306; Q9957; A4216; C8929

== ENCOUNTER → 2023-10-14 | Outpatient (CLI) | payer MEDICARE, OTHER, SELFPAY ==
[2023-10-14 12:30] LABS: Absolute Lymphocyte Count 1.02 X10^3/uL (0.83-4.51); Absolute Neutrophil Count 7.2 X10^3/uL (2.0-7.7); Basophil# 0.08 X10^3/uL; Basophil% 0.9 % (0-1); Eosinophil# 0.14 X10^3/uL; Eosinophils% 1.5 % (0-5); Hematocrit 52.7 % (40-54); Lymphocyte # 1.02 X10^3/ul (0.83-4.51); Lymphocyte % 11.1 % (19-41); Mean Corp Hgb Conc 32.3 g/dL (32-36); Mean Corpuscular Hgb 30.4 pg (27.0-32.0); Mean Corpuscular Volume 94.3 fL (80-94); Mean Platelet Vol. 10.4 fl (6.2-12.0); Monocyte% 5.5 % (0-10); NRBC Flagged by Analyzer 0 % (0-5); Neutrophil # 7.19 X10^3/uL (2.7-7.7); Neutrophil % 78.5 % (47-70); Platelet Count 187 K/mm3 (150-450); RBC Distribution Width SD 52.1 fl (35.1-43.9); Red Blood Count 5.59 M/mm3 (4.6-6.2); White Blood Count 9.2 K/mm3 (4.4-11.0)
[2023-10-14 12:58] LABS: Vitamin D,25 Hydroxy 21.8 ng/mL
[2023-10-14 13:40] LABS: ALB/GLOB Ratio 0.9 RATIO (0.9-2.4); AST(SGOT) 18 U/L (15-37); Alanine Aminotransfer ALT/SGPT 29 U/L (16-61); Albumin, Serum 3.4 g/dL (3.2-5.0); Alkaline Phosphatase 75 U/L (45-117); Anion Gap 5 (5-15); BUN 33 mg/dL (7-18); BUN/Creat Ratio 16.8 RATIO (10-20); Calcium,Total 9.2 mg/dL (8.5-10.1); Chloride 103 mmol/L (98-107); Creatinine, Serum 1.96 mg/dL (0.70-1.30); EST Glomerular Filtration Rate 35 mL/min (>60); Est Glom Filt Rate - Afr Amer 43 mL/min (>60); Globulin 3.8 g/dL (2.2-4.2); Glucose 98 mg/dL (74-106); Potassium 3.7 mmol/L (3.5-5.1); Protein, Total 7.2 g/dL (6.4-8.2); Sodium Level 139 mmol/L (136-145); Thyroid Stim Hormone (TSH) 3.49 uIU/mL (0.358-3.74); Uric Acid 5.1 mg/dL (3.5-7.2)
== END | disposition home or self-care (01) ==
LOC: LAB 11:33
PROVIDERS: PCP Family Medicine Geriatric Medicine; Referring Provider Family Medicine Geriatric Medicine; Visit Provider Family Medicine Geriatric Medicine
DX: M10.9 Gout, unspecified (principal); R53.83 Other fatigue; E55.9 Vitamin D deficiency, unspecified
CPT/HCPCS: 36415; 80053; 82306; 84443; 84550; 85025

== ENCOUNTER → 2023-11-11 | Outpatient (CLI) | payer MEDICARE, OTHER, SELFPAY ==
--- NOTE | 2023-11-11 08:02 | EX.OP.PR.HP ---
History of Present Illness General Arrival date:: 11/11/23 Arrival time:: 07:50 Date of Referral:: 10/25/23 Date of Evaluation: 11/11/23 Referring Physician: Dr. Margarita Vega Primary Diagnosis: Lung Cancer, Radiation Fibrosis History of Present Pulmonary Event History of Present Illness: Shortness of breath, difficulty with ADL's, Dyspnea on Exertion mMRC Breathless Scale: When is the patient short of breath? Y/N Grade: Description of Breathlessness: N 0 I only get breathless with strenuous exercise. Y 1 I get short of breath when hurrying on level ground or walking up a slight hill. Y 2 On level ground, I walk slower than people of the same age because of breathless, or have to stop for breath when walking at my own pace. Y 3 I stop for breath after walking 100 yards or after a few minutes on level ground. n 4 I am too breathless to leave the house or I am breathless when dressing. Respiratory Problems: Yes Fatigue, Able to Speak in Full Sentences, Ankle Swelling, Dyspnea at Rest, Dyspnea with Activity, Dyspnea Lying Down Flat and Cough with Secretions Medications Home Medications albuterol sulfate 90 mcg/actuation aerosol inhaler 1 - 2 puff inhalation Q4H PRN PRN Wheezing 10/20/13 pramipexole 0.5 mg tablet 0.5 mg PO BID RLS 10/05/16 pantoprazole 40 mg tablet,delayed release 40 mg PO QHS 07/17/19 acetaminophen 325 mg tablet 650 mg (2 x 325 mg) PO Q4H PRN PRN Pain Score 1-5/10 07/24/19 doxepin 25 mg capsule 25 mg PO QHS SLEEP 11/05/20 budesonide 0.5 mg/2 mL suspension for nebulization 0.5 mg (2 mL) inhalation BID #120 mL 05/02/21 febuxostat 40 mg tablet (Uloric) 40 mg PO QHS GOUT 06/21/21 ondansetron HCl 4 mg tablet (Zofran) 4 mg PO Q6H PRN Nausea 06/21/21 prednisone 5 mg tablet 7.5 mg PO DAILY 01/14/23 vitamin [id number] B1 1,000 mcg-100 mg/mL injection solution 1 ml IM .Q2W 01/14/23 erythromycin 5 mg/gram (0.5 %) eye ointment 1 applic EACH EYE BID 01/28/23 doxycycline monohydrate 100 mg capsule mg PO 03/15/23 albuterol sulfate 2.5 mg/3 mL (0.083 %) solution for nebulization 2.5 mg (3 mL) inhalation Q4H PRN #25 vials 08/09/23 Allergies Allergies No Known Allergies Allergy (Verified 08/09/23 10:12) Secretions Thick:: No Thin:: Yes Amount/Day:: 1 TSP Cough:: Yes AM: Yes Sleep Disorder Evaluation Hx of Sleep Apnea: Yes STOP Results: Patient has a CPAP Medical Utilization Medical Devices Do you use a peak flow meter at home?: No Do you use a spacer device with your inhalers?: No Medical Utilization Number of hospital visits in the last year?: 1 Number of emergency room visits in the last year?: 2 Do you see your physician on a regular schedule?: Yes How often?: Dr. Chandler 10 times annually, Dr. Jennifer Vega 5-6 times Advanced Directives Advanced Directives Power of Marketing And Development Coordinator: Yes Living Will: Yes Advance Directives Information Provided: No Advance Directives on File: Yes MOLST See MOLST form: No Past Medical History Covid-19 Screening Physicial Symptoms Fever: No Unexplained muscle aches: No Current respiratory symptoms: Yes (Shortness of breath , wheezing, dyspnea) Upper respiratory infections symptoms: No Gastro-intestinal symptoms: Yes Vaw-Mduo-Rxtbuy symptoms: No Other Clinical Concerns Has tested positive for COVID-19 in last 30 days: No Exposure Risk Had contact w/person w/symptoms or Covid-19 (+) last 14 days: No Has High Risk Exposures ID'd by Health dept/Inf Control team: No Pertinent Comorbidities 65 years or older:: Yes Lives in Assisted Living facility:: No Has a chronic lung disease or moderate to severe asthma:: Yes Has a serious heart condition:: No Immunocompromised:: Yes Severely obese (Body Mass Index of 40 or higher):: No Diabetic:: No Has chronic kidney disease undergoing dialysis:: Yes Has liver disease:: No Medical History Medical History Alcohol use Arthritis Bladder cancer Bladder carcinoma Cancer Cardiology follow-up encounter Chronic back pain Chronic gout Chronic kidney disease, stage 3 CKD (chronic kidney disease) stage 3, GFR 30-59 ml/min COPD (chronic obstructive pulmonary disease) Encounter for screening for COVID-19 Former smoker Gastric reflux GERD (gastroesophageal reflux disease) Gout History of echocardiogram History of edema History of irregular heartbeat History of steroid therapy History of stress test Hyperlipidemia Hypogonadism Lung cancer LUIS CARLOS (obstructive sleep apnea) Pulmonary embolism Renal cancer Renal cell carcinoma Restless legs Sleep apnea TIA (transient ischemic attack) Walker as ambulation aid Wears glasses Surgical History Surgical History H/O kidney removal History of appendectomy History of back surgery History of bladder surgery History of cataract extraction History of colonoscopy History of thoracotomy History of tonsillectomy Significant Family History Family History Father Malignant neoplasm of lung Mother Hypertension Current/ Previous Services Pulmonary Rehab:: Yes Comments Comments: Did [place] once before here at [facility] for his COPD in the past. Social History Smoking History Smoking Status: Former smoker Alcohol Use Alcohol Usage: Yes Substance Abuse Hx Substance Use: No Occupation Occupation (List type of work in comments):: Retired Hobbies, Recreation, Social Activities Hobbies: Sports (Golfing) and Other (Woodworking, remodeling) Recreational Activities: I can hardly do any recreational activities Functioning ADL/IADL Current Ability Current Ability: Independent: Self-Care (e.g.,grooming, dressing, & bathing), Independent: Ambulation, Independent: Transfer and Independent: Household tasks (e.g., light meal prep, laundry, shopping) Pt Functioning Prior to Problem Prior Functioning: Self-Care (e.g.,grooming, dressing, & bathing): Independent, Ambulation: Independent, Transfer: Independent and Household tasks (e.g., light meal prep, laundry, shopping): Independent Social Environment Status Marital Status: Current Living Arrangements Living Environment:: Spouse Children How many children do you have?: 2 Do any of your children live nearby?: Yes Safety Do you feel safe in your surroundings?: Yes Review of Systems Review of Systems Review of Systems Respiratory: Reports Cough (productive), SOB at Rest, SOB upon Exertion, Sputum production, Wheezing, Appetite, Normal, Dizziness/Lightheadedness (mostly when gets to coughing to hard) and Fatigue; Denies Sleep, Normal (Don't sleep well at all.) Pain Is Patient Pain Free?: No Risk Factor Assessment Chief Complaint Chief Complaint: Dyspnea on exertion, difficulty with ADLs, wheezing Vital Signs Pulse Rate: 91 Pulse Rhythm: Regular Respiratory Rate: 18 Pulse Ox: 93 Blood Pressure: 148/84 Diabetes Nutrition Referral for Diabetes: No Obesity Height: 6 ft 3 in Weight:: 249 lb Weight in Pounds: 249.0 lbs Weight Source: Estimated by Patient Body Mass Index (BMI): 31.1 Nutritional Referral for Obesity: Yes Physical Activity Physical Inactivity: None Risk Stratification Risk Guidelines: Lowest Risk: Risk Factor for Smoking, Risk Factor for Dyslipidemia and Risk Factor for Diabetes, Moderate Risk: Risk Factor for Sedentary Lifestyle and Highest Risk: Risk Factor for Obesity, Risk Factor for Hypertension and Risk Factor for Sedentary Lifestyle For Smoking Smoking Risk Guidelines For Dyslipidemia Dyslipidemia Risk Guidelines For Diabetes Mellitus Diabetes Risk Guidelines For Obesity/Overweight Obesity/Overweight Risk Guidelines For Hypertension Hypertension Risk Guidelines For Sedentary Lifestyle Sedentary Lifestyle Risk Guidelines For Depression Depression Risk Guidelines Motivation Motivation to Participate On a scale of 1 to 10, how prepared are you to commit to attending program?: 10 What do you see as barriers to successfully being able to complete the program?: none What do you see as the benefits of succesfully completing the program? In other words, what do you hope to get out of participating in the program?: breathing better, overall health getting better, reduce cough Are there issues you are dealing with that will interfere with completing the program?: None Do you have a spouse or signficant other, family or friends who will help support you to complete the program?: Yes
--- NOTE | 2023-11-11 08:03 | EX.OP.PR.TP ---
General Information2 General Information Admitting Diagnosis: Lung Cancer, Radiation Fibrosis Secondary Diagnosis: COPD, Cancer, Hypercholesterolemia, Radiation pneumonitis Personal Learning Style/Barriers Personal Learning Style:: Audio/Visual and Written Barriers to Learning: Vision impaired Stage of change r/t lifestyle modifications: Prepared Educational Classes SC: Breathing Retraining: Initial Assessment, Exercise: Initial Assessment, Energy Conservation: Initial Assessment, Sleep problems: Initial Assessment (H/O sleep apnea) and Airway clearance: Initial Assessment Education/Goals Individual Counseling: Initial Assessment: Overweight/Obesity and Sedentary Lifestyle Exercise - Initial Assessment Visit Date of Eval: 11/11/23 Session Number:: 0 (Pre program -evaluation) Problem/Goals Problems: Deconditioning, No regular exercise, Knowledge deficit exercise guidelines and Knowledge deficit exercise safety Goals:: SC: 2-3/wk for 18 weeks [36 sessions] Physician Prescribed Exercise Modalities: Treadmill, Airdyne and NuStep Intensity: 60-80% of age predicted maximum heart rate reserve Current METSs:: 3.0 Target HR:: 121 (THRR 93-121) Resting Blood Pressure: 148/84 Minimum SpO2 with exercise: 93 (room air) EKG Type: Sinus rhythm Plan Plan and Plan to Review:: Benefits of exercise, Core components of exercise, How to measure dyspnea level, How to monitor dyspnea level, Exercise intensity, Exercise safety guideline, Home exercise guidelines and Prisca: 3-4/-13 Exercise - 30-Day Assessment Visit Date of Eval: 11/11/23 Session Number:: 0 (Pre program -evaluation) Physician Prescribed Exercise Current METSs:: 3.0 Target HR:: 121 (THRR 93-121) Resting Blood Pressure: 148/84 Minimum SpO2 with exercise: 93 (room air) EKG Type: Sinus rhythm Exercise - 60-Day Assessment Visit Date of Eval: 11/11/23 Session Number:: 0 (Pre program -evaluation) Physician Prescribed Exercise Target HR:: 121 (THRR 93-121) Resting Blood Pressure: 148/84 Minimum SpO2 with exercise: 93 (room air) EKG Type: Sinus rhythm Exercise - 90-Day Assessment Visit Date of Eval: 11/11/23 Session Number:: 0 (Pre program -evaluation) Physician Prescribed Exercise Current METSs:: 3.0 Target HR:: 121 (THRR 93-121) Resting Blood Pressure: 148/84 Minimum SpO2 with exercise: 93 (room air) EKG Type: Sinus rhythm Exercise - Final Assessment Visit Session Number:: 0 (Pre program -evaluation) Physician Prescribed Exercise Modalities: Treadmill, Airdyne and NuStep Current METSs:: 3.0 Resting Blood Pressure: 148/84 Minimum SpO2 with exercise: 93 (room air) EKG Type: Sinus rhythm Nutrition/Wt Mgmt - Initial Visit Date of Eval: 11/11/23 Session Number:: 0 (Pre program evaluation) Problems/Goals Problems: Overweight Goals: BMI 21-25 and Wt Loss 1-2 lbs per week Weight Management Knowledge Deficit Management of:: Overweight, Role of exercise in weight control and Weight control w/Prednisone Admit Height:: 6 ft 3 in Admit Weight:: 249 lb Admit BMI:: 31.1 Intervention Referral to dietitian:: Yes Will attend diet classes:: Yes Intervention/Plan: Instruct on ideal BMI & set weight loss goal w/patient, Assist pt to ID & incorporate diet changes for weight loss by S9, Refer to Structured Weight Loss program as appropriate and Encourage goal of using 250-300dcal per session for weight loss Plan Nutrition Plan: Yes: Review BMI or WC & identify target wt & strategies for wt control, Yes: Nutrition education class:, Yes: Medication education class [Prednisone]:, Yes: Weight control education class: and Yes: Education re: Need for ongoing weight monitoring (Edema monitoring / fluid retention) Nutrition/Wt Mgmt - 30-Day Visit Session Number:: 0 (Pre program evaluation) Weight Management Height: 6 ft 3 in Weight:: 249 lb BMI: 31.1 Nutrition/Wt Mgmt - 60-Day Visit Session Number:: 0 (Pre program evaluation) Weight Management Height: 6 ft 3 in Weight:: 249 lb BMI: 31.1 Nutrition/Wt Mgmt - 90-Day Visit Session Number:: 0 (Pre program evaluation) Weight Management Height: 6 ft 3 in Weight:: 249 lb BMI: 31.1 Nutrition/Wt Mgmt - Final Visit Session Number:: 0 (Pre program evaluation) Weight Management Height: 6 ft 3 in Weight:: 249 lb BMI: 31.1 Psychosocial - Initial Assess Visit Date of Eval: 11/11/23 Session Number:: 0 (Pre program evaluation) Problems/Goals History of Emotional Disorders: Depression Psychosocial Goals: 1. Patient is free from overwhelming symtoms of depression (or anxiety, 2. Identifies personal stressors & states the strategies for managing, 3. Identifies activities to decrease isolation and/or symptoms of, 4. Improved psychosocial coping skills., 5. Verbalizes coping strategies., 6. Adequate treatment of depression. and 7. Improved Q.O.L. Psychosocial Test Tool Used:: Pulmonary QOL and PHQ-9 Questionnaire Referral to [facility] PS - Interventions: Yes: Attend Stress Management Classes and No: Referral to Behavioral Health if PHQ-9 score >9:, No: Referral to [facility] and No: Referral to Physician if PHQ-9 if score is 5-9: Intervention/Plan: See List Interventions/Plan:: Assess stressors,coping strategies & signs of derpression on admission, Instruct/assist pt to develop coping & personal stress Mgt strategies, Instruct patient to recognize signs & symptoms of depression and Instruct patient to recog Psychosocial - 30-Day Visit Session Number:: 0 (Pre program evaluation) Problems/Goals History of Emotional Disorders: Depression Psychosocial Goals: 1. Patient is free from overwhelming symtoms of depression (or anxiety, 2. Identifies personal stressors & states the strategies for managing, 3. Identifies activities to decrease isolation and/or symptoms of, 4. Improved psychosocial coping skills., 5. Verbalizes coping strategies., 6. Adequate treatment of depression. and 7. Improved Q.O.L. Psychosocial Test Tool Used:: Pulmonary QOL and PHQ-9 Questionnaire Referral to Behavioral Health PS - Interventions: Yes: Attend Stress Management Classes and No: Referral to Behavioral Health if PHQ-9 score >9:, No: Referral to [facility] and No: Referral to Physician if PHQ-9 if score is 5-9: Plan Interventions/Plan:: Assess stressors,coping strategies & signs of derpression on admission, Instruct/assist pt to develop coping & personal stress Mgt strategies, Instruct patient to recognize signs & symptoms of depression and Instruct patient to recog Psychosocial - 60-Day Visit Session Number:: 0 (Pre program evaluation) Problems/Goals History of Emotional Disorders: Depression Psychosocial Goals: 1. Patient is free from overwhelming symtoms of depression (or anxiety, 2. Identifies personal stressors & states the strategies for managing, 3. Identifies activities to decrease isolation and/or symptoms of, 4. Improved psychosocial coping skills., 5. Verbalizes coping strategies., 6. Adequate treatment of depression. and 7. Improved Q.O.L. Psychosocial Test Tool Used:: Pulmonary QOL and PHQ-9 Questionnaire Referral to Behavioral Health PS - Interventions: Yes: Attend Stress Management Classes and No: Referral to Behavioral Health if PHQ-9 score >9:, No: Referral to [facility] and No: Referral to Physician if PHQ-9 if score is 5-9: Plan Interventions/Plan:: Assess stressors,coping strategies & signs of derpression on admission, Instruct/assist pt to develop coping & personal stress Mgt strategies, Instruct patient to recognize signs & symptoms of depression and Instruct patient to recog Psychosocial - 90-Day Visit Session Number:: 0 (Pre program -evaluation) Problems/Goals History of Emotional Disorders: Depression Psychosocial Goals: 1. Patient is free from overwhelming symtoms of depression (or anxiety, 2. Identifies personal stressors & states the strategies for managing, 3. Identifies activities to decrease isolation and/or symptoms of, 4. Improved psychosocial coping skills., 5. Verbalizes coping strategies., 6. Adequate treatment of depression. and 7. Improved Q.O.L. Psychosocial Test Tool Used:: Pulmonary QOL and PHQ-9 Questionnaire Referral to Behavioral Health PS - Interventions: Yes: Attend Stress Management Classes and No: Referral to Behavioral Health if PHQ-9 score >9:, No: Referral to [facility] and No: Referral to Physician if PHQ-9 if score is 5-9: Plan Interventions/Plan:: Assess stressors,coping strategies & signs of derpression on admission, Instruct/assist pt to develop coping & personal stress Mgt strategies, Instruct patient to recognize signs & symptoms of depression and Instruct patient to recog Psychosocial - Final Assess Visit Session Number:: 0 (Pre program -evaluation) Problems/Goals History of Emotional Disorders: Depression Psychosocial Goals: 1. Patient is free from overwhelming symtoms of depression (or anxiety, 2. Identifies personal stressors & states the strategies for managing, 3. Identifies activities to decrease isolation and/or symptoms of, 4. Improved psychosocial coping skills., 5. Verbalizes coping strategies., 6. Adequate treatment of depression. and 7. Improved Q.O.L. Psychosocial Test Tool Used:: Pulmonary QOL and PHQ-9 Questionnaire Referral to Behavioral Health PS - Interventions: Yes: Attend Stress Management Classes and No: Referral to Behavioral Health if PHQ-9 score >9:, No: Referral to [facility] and No: Referral to Physician if PHQ-9 if score is 5-9: Plan Interventions/Plan:: Assess stressors,coping strategies & signs of derpression on admission, Instruct/assist pt to develop coping & personal stress Mgt strategies, Instruct patient to recognize signs & symptoms of depression and Instruct patient to recog Oxygen & Oxygen Titration Init Visit Date of Eval: 11/11/23 Session Number:: 0 (Pre program evaluation) Initial Assessment Oxygen on Admission: None SpO2:: 93 (room air) FiO2:: 21 Patient Reports:: Non-productive cough and Prod cough daily <1 Tbsp Goal Oxygen & Oxygen Tritration Goals: Effective hypoxemia control Plans Plan: Monitor SpO2 rest & with exercise Reviewed prescribed medications:: Purpose, Schedule, Side effects and Importance of compliance Instruct correct technique/timing & care:: MDI, Nebulizer and Return demo use of inhaler Bronchial Hygiene Plan: Controlled cough, Hydration, Hand hygiene, When to call MD and Signs/symptoms to report: Oxygen & Oxygen Titration 30D Visit Session Number:: 0 (Pre program -evaluation) Reassessment SpO2:: 93 (room air) Oxygen & Oxygen Titration 60D Visit Session Number:: 0 (Pre program -evaluation) Reassessment SpO2:: 93 (room air) Oxygen & Oxygen Titration 90D Visit Session Number:: 0 (Pre program -evaluation) Reassessment SpO2:: 93 (room air) Oxygen & Oxygen Titration SHAHEED Visit Session Number:: 0 (Pre program -evaluation) Reassessment SpO2:: 93 (room air) Core Components - Initial Visit Date of Eval: 11/11/23 Session Number:: 0 (Pre program -evaluation) Hypertension Hypertension Diagnosis:: Hypertension ICD-10 I10 BP: 148/84 [place] [employer] Hypertension Guidelines Outcomes/Goals: Able to verbalize/achieve optimal blood pressure <130/80 and Incorporates diet changes & exercise for blood pressure control by DC Tobacco - Initial Assessment Tobacco Program Goals Learning Barriers: Vision Do you have family support?: Yes Education Schedule Given:: Yes Gave Education Materials For:: Pulmonary Disease, Risk Factors, Breathing Techniques, Medical Compliance, Pulmonary A&P, Exacerbation Signs & Symptoms and Stress & Relaxation Exacerbation Mgmt & Airway Clearance Patient Reports:: Non-productive cough and Prod cough daily <1 Tbsp Plan: Monitor SpO2 rest & with director property correct technique/timing & care:: MDI, Nebulizer and Return demo use of inhaler Bronchial Hygiene Plan: Controlled cough, Hydration, Hand hygiene, When to call MD and Signs/symptoms to report: Medication Interventions/plans: Instruct on medication effects & side effects, Review medication list w/patient every two weeks and Instruct importance of taking meds as ordered & assist problem solving Medication Goals: Adherence to prescribed medications and Correct technique/timing & care of MDI, DPI, nebulizer, and spacer. Does pt report taking home meds as prescribed?: Yes Medications: Yes: MDI and Yes: NEB and No: Spacer Reviewed prescribed medications:: Purpose, Schedule, Side effects and Importance of compliance Diabetes Diabetes:: No Referral to dietitian:: Yes Referral to Diabetic Clinic:: No Will attend diet classes:: Yes Heart Failure Ejection fraction %:: 60 HF S/S to report:: Swelling feet and ankles, sudden weight gain, and > 4# in one week HF Medication:: Furosemide 40mg Documenting weight daily for CHF: Yes Core Components - 30 DAYS Visit Session Number:: 0 (Pre program -evaluation) Hypertension Hypertension Diagnosis:: Hypertension ICD-10 I10 Resting Blood Pressure:: 148/84 [place] [employer] Hypertension Guidelines Outcomes/Goals: Able to verbalize/achieve optimal blood pressure <130/80 and Incorporates diet changes & exercise for blood pressure control by DC Tobacco - 30-Day Tobacco Program Goals Do you have family support?: Yes Education Schedule Given:: Yes Gave Education Materials For:: Pulmonary Disease, Risk Factors, Breathing Techniques, Medical Compliance, Pulmonary A&P, Exacerbation Signs & Symptoms and Stress & Relaxation Diabetes Diabetes:: No Heart Failure Documenting weight bogdan: Yes Core Components - 60 DAYS Visit Session Number:: 0 (Pre program -evaluation) Hypertension Hypertension Diagnosis:: Hypertension ICD-10 I10 Resting Blood Pressure:: 148/84 [place] [employer] Hypertension Guidelines Outcomes/Goals: Able to verbalize/achieve optimal blood pressure <130/80 and Incorporates diet changes & exercise for blood pressure control by DC Tobacco - 60-Day Tobacco Program Goals Do you have family support?: Yes Education Schedule Given:: Yes Gave Education Materials For:: Pulmonary Disease, Risk Factors, Breathing Techniques, Medical Compliance, Pulmonary A&P, Exacerbation Signs & Symptoms and Stress & Relaxation Diabetes Diabetes:: No Heart Failure Documenting weight bogdan: Yes Core Components - 90 DAYS Visit Session Number:: 0 (Pre program -evaluation) Hypertension Hypertension Diagnosis:: Hypertension ICD-10 I10 Resting Blood Pressure:: 148/84 [place] [employer] Hypertension Guidelines Outcomes/Goals: Able to verbalize/achieve optimal blood pressure <130/80 and Incorporates diet changes & exercise for blood pressure control by DC Tobacco - 90-Day Tobacco Program Goals Do you have family support?: Yes Education Schedule Given:: Yes Gave Education Materials For:: Pulmonary Disease, Risk Factors, Breathing Techniques, Medical Compliance, Pulmonary A&P, Exacerbation Signs & Symptoms and Stress & Relaxation Diabetes Diabetes:: No [employer] Components - Final Visit Session Number:: 0 (Pre program -evaluation) Hypertension Hypertension Diagnosis:: Hypertension ICD-10 I10 Resting Blood Pressure:: 148/84 [place] [employer] Hypertension Guidelines Outcomes/Goals: Able to verbalize/achieve optimal blood pressure <130/80 and Incorporates diet changes & exercise for blood pressure control by DC Tobacco - Final Tobacco Program Goals Do you have family support?: Yes Education Schedule Given:: Yes Diabetes Diabetes:: No Patient Health Questionnaire PHQ-9 Screening Initial Assessment: 1. Little interest or pleasure in doing things: More than half the days 2. Feeling down, depressed, or hopeless: More than half the days 3. Trouble falling or staying asleep, or sleeping too much: More than half the days 4. Feeling tired or having little energy: Nearly every day 5. Poor appetite or overeating: Several days 6. Feeling bad about yourself -- or that you are a failure or have let yourself or your family down: Several days 7. Trouble concentrating on things, such as reading the newspaper or watching television: Several days 8. Moving or speaking so slowly that other people could have noticed. Or the opposite - being so fidgety or restless that you have been moving around a lot more than usual: Not at all 9. Thoughts that you would be better off , or of hurting yourself in some way: Not at all How difficult have these problems made it for you to do your work, take care of things at home, or get along with other people?: Very difficult Total Score: 12 Knowledge Questionaire (BCKQ) Information Information: [place] COPD Knowledge Questionnaire (BCKQ) This questionnaire is designed to find out what you know about your lung problem. It should be completed without help form anyone else. This usually takes between 10 and 20 minutes. Your answers will help us to find out what information you need to help you to understand and manage your lung condition. [place] which you think is the correct answer. COPD Assessment Test [CAT] Questions Never cough = 0, Cough all the time = 5: 4 No phlegm = 0, Chest full of phlegm = 5: 4 No chest tightness = 0, Chest very tight = 5: 3 No breathless w/exertion = 0, Very breathless w/exertion = 5: 3 No limitations w/activity = 0, Very limited w/activity = 5: 4 Confident leaving home = 0, Not at all confident = 5: 3 Sleep soundly = 0, Don't sleep soundly = 5: 4 Lots of energy = 0, No energy at all = 5: 5 Total CAT score:: 30 Self-Efficacy 6-Item Scale Initial Assessment: We would like to know how confident you are in doing certain activities. Please select your confidence level for: Fatigue Select Number: 3 Physical Discomfort or Pain Select Number: 4 Emotional Distress Select Number: 5 Other Symptoms or Health Problems Select Number: 3 Different Tasks and Activities Select Number: 4 Medication Select Number: 4 Total Score:: 3 Nutrition Survey Nutrition Survey Instructions Scoring Instructions Nutrition Survey Initial: Have you lost >10 lbs over the past 2 months without trying?: No (Actually have gained 20 # due to fluid retention) Are you following a special diet at home for diabetes, low fat, or low salt?: No Are you interested in meeting with a dietitian for help understanding your diet?: No Do you eat less than 3 meals a day?: No Do you eat fatty meats (mims, sausage, ribs, etc), fried foods, desserts, large amounts of salad dressings, margarine, butter, or cheese most days?: Yes Do you have food allergies? [Enter types in comment field]: No Do you eat in restaurants more than 3 times a week?: No Do you season food with salt, seasoning salt, or garlic salt?: Yes Do you used canned, boxed, frozen meals, or soups, seasoning packets?: Yes Total Score:: 3
[2023-11-11 08:19] VITALS: BP 148/84; O2SAT 93; BMI 31.1
[2023-11-11 08:31] VITALS: BP 148/84; PULSE 91; RESP 18; O2SAT 93; BMI 31.1
== END | disposition home or self-care (01) ==
LOC: PR 07:47
PROVIDERS: PCP Family Medicine Geriatric Medicine
DX: E78.5 Hyperlipidemia, unspecified (principal); C64.9 Malignant neoplasm of unspecified kidney, except renal pelvis; C67.9 Malignant neoplasm of bladder, unspecified; N18.30 Chronic kidney disease, stage 3 unspecified; Z85.118 Personal history of other malignant neoplasm of bronchus and lung; Z90.5 Acquired absence of kidney; Z98.890 Other specified postprocedural states; K21.9 Gastro-esophageal reflux disease without esophagitis

== ENCOUNTER → 2023-11-14 | Outpatient (CLI) | payer MEDICARE, OTHER, SELFPAY ==
[2023-11-11 08:19] VITALS: BMI 31.1
[2023-11-14 17:26] LABS: Hematocrit 50.7 % (40-54); Hemoglobin 16.3 g/dL (13.0-16.5); Mean Corp Hgb Conc 32.1 g/dL (32-36); Mean Corpuscular Hgb 30.5 pg (27.0-32.0); Mean Corpuscular Volume 94.9 fL (80-94); Mean Platelet Vol. 10.7 fl (6.2-12.0); Platelet Count 197 K/mm3 (150-450); RBC Distribution Width CV 14.3 % (11.6-14.6); RBC Distribution Width SD 49.3 fl (35.1-43.9); Red Blood Count 5.34 M/mm3 (4.6-6.2); White Blood Count 8.7 K/mm3 (4.4-11.0)
[2023-11-14 17:37] LABS: Albumin, Serum 3.4 g/dL (3.2-5.0); BUN 22 mg/dL (7-18); BUN/Creat Ratio 11.7 RATIO (10-20); Calcium,Total 8.9 mg/dL (8.5-10.1); Chloride 105 mmol/L (98-107); Creatinine, Serum 1.88 mg/dL (0.70-1.30); EST Glomerular Filtration Rate 37 mL/min (>60); Est Glom Filt Rate - Afr Amer 45 mL/min (>60); Glucose 91 mg/dL (74-106); Phosphorus 2.2 mg/dL (2.5-4.9); Sodium Level 139 mmol/L (136-145)
== END | disposition home or self-care (01) ==
LOC: POLAB3 13:38
PROVIDERS: PCP Family Medicine Geriatric Medicine; Visit Provider Internal Medicine Nephrology
DX: N18.32 Chronic kidney disease, stage 3b (principal)
CPT/HCPCS: 36415; 80069; 85027

== ENCOUNTER → 2023-11-28 | Outpatient (CLI) | payer MEDICARE, OTHER, SELFPAY ==
[2023-11-11 08:19] VITALS: BMI 31.1
[2023-11-28 15:53] LABS: Albumin, Serum 3.5 g/dL (3.2-5.0); BUN 37 mg/dL (7-18); BUN/Creat Ratio 17.1 RATIO (10-20); Calcium,Total 9.1 mg/dL (8.5-10.1); Chloride 97 mmol/L (98-107); Creatinine, Serum 2.17 mg/dL (0.70-1.30); EST Glomerular Filtration Rate 31 mL/min (>60); Est Glom Filt Rate - Afr Amer 38 mL/min (>60); Glucose 91 mg/dL (74-106); Phosphorus 2.3 mg/dL (2.5-4.9); Potassium 4.4 mmol/L (3.5-5.1); Sodium Level 135 mmol/L (136-145)
== END | disposition home or self-care (01) ==
LOC: LAB 14:10
PROVIDERS: PCP Family Medicine Geriatric Medicine; Referring Provider Internal Medicine Nephrology; Visit Provider Internal Medicine Nephrology
DX: N18.32 Chronic kidney disease, stage 3b (principal)
CPT/HCPCS: 36415; 80069

== ENCOUNTER 2023-12-02 13:00 | Outpatient (RCR) | payer MEDICARE, OTHER, SELFPAY ==
[2023-11-11 08:19] VITALS: BMI 31.1
== END 2023-12-03 23:59 ==
LOC: PR 13:00
PROVIDERS: PCP Family Medicine Geriatric Medicine
DX: J44.9 Chronic obstructive pulmonary disease, unspecified (principal); C78.01 Secondary malignant neoplasm of right lung; J70.1 Chronic and other pulmonary manifestations due to radiation
CPT/HCPCS: 97150; G0239

== ENCOUNTER 2024-01-03 13:00 | Outpatient (RCR) | payer MEDICARE, OTHER, SELFPAY ==
[2023-11-11 08:19] VITALS: BMI 31.1
== END 2024-01-03 23:59 ==
LOC: PR 13:00
PROVIDERS: PCP Family Medicine Geriatric Medicine
DX: J44.9 Chronic obstructive pulmonary disease, unspecified (principal); C78.01 Secondary malignant neoplasm of right lung; J70.1 Chronic and other pulmonary manifestations due to radiation
CPT/HCPCS: 97150; 97802; G0239

== ENCOUNTER 2024-01-13 13:00 | Outpatient (RCR) | payer MEDICARE, OTHER, SELFPAY ==
[2023-11-11 08:19] VITALS: BMI 31.1
--- NOTE | 2024-01-10 09:26 | EX.OP.PR.TP ---
Exercise - Initial Assessment Visit Date of Eval: 01/10/24 Session Number:: 16 Physician Prescribed Exercise Modalities: Treadmill, Schwinn Airdyne AD-7 and SciFit Stepper Target HR:: 121 (THRR 93-121) Current RPD:: 12 Maximum Exercise HR:: 109 Resting Blood Pressure: 140/80 Maximum Exercise Blood Pressure: 152/84 Minimum SpO2 with exercise: 90 (on 6 liters supplemental oxygen. Patient has home oxygen at 3 liters.) EKG Type: NSR to sinus tach w/PVCs. Exercise - 30-Day Assessment Visit Date of Eval: 01/10/24 Session Number:: 16 Physician Prescribed Exercise Modalities: Treadmill, Schwinn Airdyne AD-7 and SciFit Stepper Target HR:: 121 (THRR 93-121) Current RPD:: 12 Maximum Exercise HR:: 109 Resting Blood Pressure: 140/80 Maximum Exercise Blood Pressure: 152/84 Minimum SpO2 with exercise: 90 (on 6 liters supplemental oxygen. Patient has home oxygen at 3 liters.) EKG Type: NSR to sinus tach w/PVCs. Current Minutes of Exercise: 56:04 Home Exercise Frequency:: daily Exercise - 60-Day Assessment Visit Date of Eval: 01/10/24 Session Number:: 16 Physician Prescribed Exercise Modalities: Treadmill, Schwinn Airdyne AD-7 and SciFit Stepper Frequency (days/week): 3 Duration (Minutes):: 30-45 Intensity: 60-80% of age predicted maximum heart rate reserve Current METSs: 4.0 Target HR:: 121 (THRR 93-121) Current RPD:: 12 Maximum Exercise HR:: 109 Resting Blood Pressure: 140/80 Maximum Exercise Blood Pressure: 152/84 Minimum SpO2 with exercise: 90 (on 6 liters supplemental oxygen. Patient has home oxygen at 3 liters.) EKG Type: NSR to sinus tach w/PVCs. Current Minutes of Exercise: 56:04 Home Exercise Home Exercise:: Yes Mode: Other (Physically active) Frequency:: daily Exercise - 90-Day Assessment Visit Session Number:: 16 Physician Prescribed Exercise Modalities: Treadmill, Schwinn Airdyne AD-7 and SciFit Stepper Target HR:: 121 (THRR 93-121) Current RPD:: 12 Maximum Exercise HR:: 109 Resting Blood Pressure: 140/80 Maximum Exercise Blood Pressure: 152/84 Minimum SpO2 with exercise: 90 (on 6 liters supplemental oxygen. Patient has home oxygen at 3 liters.) EKG Type: NSR to sinus tach w/PVCs. Current Minutes of Exercise: 56:04 Exercise - Final Assessment Visit Session Number:: 16 Physician Prescribed Exercise Modalities: Treadmill, Schwinn Airdyne AD-7 and SciFit Stepper Resting Blood Pressure: 140/80 Maximum Exercise Blood Pressure: 152/84 Minimum SpO2 with exercise: 90 (on 6 liters supplemental oxygen. Patient has home oxygen at 3 liters.) EKG Type: NSR to sinus tach w/PVCs. Nutrition/Wt Mgmt - Initial Visit Session Number:: 16 Weight Management Admit Height:: 6 ft 2 in Admit Weight:: 236 lb 8 oz Admit BMI:: 30.3 Nutrition/Wt Mgmt - 30-Day Visit Date of Eval: 01/10/24 Session Number:: 16 Weight Management Height: 6 ft 2 in Weight:: 236 lb 8 oz BMI: 30.3 Nutrition/Wt Mgmt - 60-Day Visit Date of Eval: 01/10/24 Session Number:: 16 Weight Management Height: 6 ft 2 in Weight:: 236 lb 8 oz BMI: 30.3 Weight Goals Progress:: Progressing Nutrition/Wt Mgmt - 90-Day Visit Session Number:: 16 Weight Management Height: 6 ft 2 in Weight:: 236 lb 8 oz BMI: 30.3 Weight Goals Progress:: Progressing Nutrition/Wt Mgmt - Final Visit Session Number:: 16 Weight Management Height: 6 ft 2 in Weight:: 236 lb 8 oz BMI: 30.3 Psychosocial - Initial Assess Visit Session Number:: 16 Problems/Goals History of Emotional Disorders: Anxious Psychosocial Goals: 1. Patient is free from overwhelming symtoms of depression (or anxiety, 2. Identifies personal stressors & states the strategies for managing, 3. Identifies activities to decrease isolation and/or symptoms of, 4. Improved psychosocial coping skills., 5. Verbalizes coping strategies., 6. Adequate treatment of depression. and 7. Improved Q.O.L. Psychosocial Test Tool Used:: PHQ-9 Questionnaire Referred to MD for counseling:: No Referral to Behavioral Health PS - Interventions: Yes: Attend Stress Management Classes and No: Referral to Behavioral Health if PHQ-9 score >9:, No: Referral to [facility] and No: Referral to Physician if PHQ-9 if score is 5-9: Intervention/Plan: See List Interventions/Plan:: Assess stressors,coping strategies & signs of derpression on admission, Instruct/assist pt to develop coping & personal stress Mgt strategies, Instruct patient to recognize signs & symptoms of depression and Instruct patient to recog Psychosocial - 30-Day Visit Date of Eval: 01/10/24 Session Number:: 16 Problems/Goals History of Emotional Disorders: Anxious Psychosocial Goals: 1. Patient is free from overwhelming symtoms of depression (or anxiety, 2. Identifies personal stressors & states the strategies for managing, 3. Identifies activities to decrease isolation and/or symptoms of, 4. Improved psychosocial coping skills., 5. Verbalizes coping strategies., 6. Adequate treatment of depression. and 7. Improved Q.O.L. Psychosocial Test Tool Used:: PHQ-9 Questionnaire Referred to MD for counseling:: No Referral to Behavioral Health PS - Interventions: Yes: Attend Stress Management Classes and No: Referral to Behavioral Health if PHQ-9 score >9:, No: Referral to [facility] and No: Referral to Physician if PHQ-9 if score is 5-9: Plan Interventions/Plan:: Assess stressors,coping strategies & signs of derpression on admission, Instruct/assist pt to develop coping & personal stress Mgt strategies, Instruct patient to recognize signs & symptoms of depression and Instruct patient to recog Psychosocial - 60-Day Visit Date of Eval: 01/10/24 Session Number:: 16 Problems/Goals History of Emotional Disorders: Anxious Psychosocial Goals: 1. Patient is free from overwhelming symtoms of depression (or anxiety, 2. Identifies personal stressors & states the strategies for managing, 3. Identifies activities to decrease isolation and/or symptoms of, 4. Improved psychosocial coping skills., 5. Verbalizes coping strategies., 6. Adequate treatment of depression. and 7. Improved Q.O.L. Psychosocial Test Tool Used:: PHQ-9 Questionnaire Referred to MD for counseling:: No Referral to Behavioral Health PS - Interventions: Yes: Attend Stress Management Classes and No: Referral to Behavioral Health if PHQ-9 score >9:, No: Referral to [facility] and No: Referral to Physician if PHQ-9 if score is 5-9: Plan Interventions/Plan:: Assess stressors,coping strategies & signs of derpression on admission, Instruct/assist pt to develop coping & personal stress Mgt strategies, Instruct patient to recognize signs & symptoms of depression and Instruct patient to recog Psychosocial - 90-Day Visit Session Number:: 16 Problems/Goals History of Emotional Disorders: Anxious Psychosocial Goals: 1. Patient is free from overwhelming symtoms of depression (or anxiety, 2. Identifies personal stressors & states the strategies for managing, 3. Identifies activities to decrease isolation and/or symptoms of, 4. Improved psychosocial coping skills., 5. Verbalizes coping strategies., 6. Adequate treatment of depression. and 7. Improved Q.O.L. Psychosocial Test Tool Used:: PHQ-9 Questionnaire Referred to MD for counseling:: No Referral to Behavioral Health PS - Interventions: Yes: Attend Stress Management Classes and No: Referral to Behavioral Health if PHQ-9 score >9:, No: Referral to [facility] and No: Referral to Physician if PHQ-9 if score is 5-9: Plan Interventions/Plan:: Assess stressors,coping strategies & signs of derpression on admission, Instruct/assist pt to develop coping & personal stress Mgt strategies, Instruct patient to recognize signs & symptoms of depression and Instruct patient to recog Psychosocial - Final Assess Visit Session Number:: 16 Problems/Goals History of Emotional Disorders: Anxious Psychosocial Goals: 1. Patient is free from overwhelming symtoms of depression (or anxiety, 2. Identifies personal stressors & states the strategies for managing, 3. Identifies activities to decrease isolation and/or symptoms of, 4. Improved psychosocial coping skills., 5. Verbalizes coping strategies., 6. Adequate treatment of depression. and 7. Improved Q.O.L. Psychosocial Test Tool Used:: PHQ-9 Questionnaire Referred to MD for counseling:: No Referral to Behavioral Health PS - Interventions: Yes: Attend Stress Management Classes and No: Referral to Behavioral Health if PHQ-9 score >9:, No: Referral to [facility] and No: Referral to Physician if PHQ-9 if score is 5-9: Plan Interventions/Plan:: Assess stressors,coping strategies & signs of derpression on admission, Instruct/assist pt to develop coping & personal stress Mgt strategies, Instruct patient to recognize signs & symptoms of depression and Instruct patient to recog Oxygen & Oxygen Titration Init Visit Session Number:: 16 Initial Assessment SpO2:: 90 (on 6 liters supplemental oxygen. Patient has home oxygen at 3 liters.) Oxygen & Oxygen Titration 30D Visit Date of Eval: 01/10/24 Session Number:: 16 Reassessment Breath Sounds:: Crackles & Wheezes and Diminished SpO2:: 90 (on 6 liters supplemental oxygen. Patient has home oxygen at 3 liters.) Oxygen & Oxygen Titration 60D Visit Date of Eval: 01/10/24 Session Number:: 16 Reassessment Reassessment- 60 Days: Demonstrate knowledge of O2 Rx at rest & w/exercise, Using O2 as Rx'd, Has home O2 as Rx'd and Uses port O2 as Rx'd Breath Sounds:: Crackles & Wheezes and Diminished SpO2:: 90 (on 6 liters supplemental oxygen. Patient has home oxygen at 3 liters.) Oxygen & Oxygen Titration 90D Visit Date of Eval: 01/10/24 Session Number:: 16 Reassessment Breath Sounds:: Crackles & Wheezes and Diminished SpO2:: 90 (on 6 liters supplemental oxygen. Patient has home oxygen at 3 liters.) Oxygen & Oxygen Titration SHAHEED Visit Date of Eval: 01/10/24 Session Number:: 16 Reassessment Breath Sounds:: Crackles & Wheezes and Diminished SpO2:: 90 (on 6 liters supplemental oxygen. Patient has home oxygen at 3 liters.) Core Components - Initial Visit Session Number:: 16 Hypertension Hypertension Diagnosis:: Hypertension ICD-10 I10 BP: 140/80 [employer] Hypertension Guidelines Blood Pressure: 152/84 Outcomes/Goals: Able to verbalize/achieve optimal blood pressure <130/80 and Incorporates diet changes & exercise for blood pressure control by DC Tobacco - Initial Assessment Tobacco Program Goals Do you have family support?: Yes Tobacco Use: Non-smoker Diabetes Diabetes:: No Heart Failure Documenting weight daily for CHF: No Core Components - 30 DAYS Visit Date of Eval: 01/10/24 Session Number:: 16 Hypertension Hypertension Diagnosis:: Hypertension ICD-10 I10 Resting Blood Pressure:: 140/80 [employer] Hypertension Guidelines Peak Exercise Blood Pressure:: 152/84 Outcomes/Goals: Able to verbalize/achieve optimal blood pressure <130/80 and Incorporates diet changes & exercise for blood pressure control by DC Interventions/plan: Instruct on optimal blood pressure, hypertension & medications and Instruct on effects of sodium, alcohol, stress, exercise &hypertension 30 day Reassessments:: Progressing Tobacco - 30-Day Tobacco Program Goals Learning Barriers: Participates in education Do you have family support?: Yes Tobacco Use: Non-smoker Exacerbation Mgmt & Airway Clearance Reassessment: Demonstrates knowledge of O2 Rx at rest, Demonstrates knowledge of O2 Rx with exercise, Using O2 as prescribed and Uses port O2 as prescribed Bronchial Hygiene Plan: Yes: Pt demonstrates correctly for effective cough (return demonstration of use in PEP Therapy device), Yes: Pt demo correct for sputum management (returned demonstration of use with Acapella device), Yes: Pt demo correct for improved hydration and Yes: Pt demo correct for hand hygiene Medication Medication reassessment: Yes: Pt demonstrates correct technique timing for MDI, Yes: Pt demonstrates correct technique timing for NEB and Yes: Pt demonstrates correct technique timing for spacer (returned demonstration of proper technique) Diabetes Diabetes:: No Heart Failure Documenting weight bogdan: No Core Components - 60 DAYS Visit Date of Eval: 01/10/24 Session Number:: 16 Hypertension Hypertension Diagnosis:: Hypertension ICD-10 I10 Resting Blood Pressure:: 140/80 [employer] Hypertension Guidelines Peak Exercise Blood Pressure:: 152/84 Outcomes/Goals: Able to verbalize/achieve optimal blood pressure <130/80 and Incorporates diet changes & exercise for blood pressure control by DC Interventions/plan: Instruct on optimal blood pressure, hypertension & medications and Instruct on effects of sodium, alcohol, stress, exercise &hypertension 60 day Reassessments:: Progressing Tobacco - 60-Day Tobacco Program Goals Learning Barriers: Participates in education Do you have family support?: Yes Tobacco Use: Non-smoker Exacerbation Mgmt & Airway Clearance Reassessment: Demonstrates knowledge of O2 Rx at rest, Demonstrates knowledge of O2 Rx with exercise, Using O2 as prescribed and Uses port O2 as prescribed Bronchial Hygiene Plan: Yes: Pt demonstrates correctly for effective cough (return demonstration of use in PEP Therapy device), Yes: Pt demo correct for sputum management (returned demonstration of use with Acapella device), Yes: Pt demo correct for improved hydration and Yes: Pt demo correct for hand hygiene Medication Medication list reviewed:: Yes Taking medications 100% of the time:: Met Medication reassessment: Yes: Pt demonstrates correct technique timing for MDI, Yes: Pt demonstrates correct technique timing for NEB and Yes: Pt demonstrates correct technique timing for spacer (returned demonstration of proper technique) 60-day Reassessments:: Met Diabetes Diabetes:: No Heart Failure Documenting weight bogdan: No Core Components - 90 DAYS Visit Session Number:: 16 Hypertension Hypertension Diagnosis:: Hypertension ICD-10 I10 Resting Blood Pressure:: 140/80 [employer] Hypertension Guidelines Peak Exercise Blood Pressure:: 152/84 Outcomes/Goals: Able to verbalize/achieve optimal blood pressure <130/80 and Incorporates diet changes & exercise for blood pressure control by DC Interventions/plan: Instruct on optimal blood pressure, hypertension & medications and Instruct on effects of sodium, alcohol, stress, exercise &hypertension 90 day Reassessments:: Progressing Tobacco - 90-Day Tobacco Program Goals Learning Barriers: Participates in education Do you have family support?: Yes Tobacco Use: Non-smoker Exacerbation Mgmt & Airway Clearance Bronchial Hygiene Plan: Yes: Pt demonstrates correctly for effective cough (return demonstration of use in PEP Therapy device), Yes: Pt demo correct for sputum management (returned demonstration of use with Acapella device), Yes: Pt demo correct for improved hydration and Yes: Pt demo correct for hand hygiene Medication Medication reassessment: Yes: Pt demonstrates correct technique timing for MDI, Yes: Pt demonstrates correct technique timing for NEB and Yes: Pt demonstrates correct technique timing for spacer (returned demonstration of proper technique) Diabetes Diabetes:: No Core Components - Final Visit Session Number:: 16 Hypertension Hypertension Diagnosis:: Hypertension ICD-10 I10 Resting Blood Pressure:: 140/80 [employer] Hypertension Guidelines Peak Exercise Blood Pressure:: 152/84 Outcomes/Goals: Able to verbalize/achieve optimal blood pressure <130/80 and Incorporates diet changes & exercise for blood pressure control by DC Tobacco - Final Tobacco Program Goals Learning Barriers: Participates in education Do you have family support?: Yes Tobacco Use: Non-smoker Exacerbation Mgmt & Airway Clearance Bronchial Hygiene Plan: Yes: Pt demonstrates correctly for effective cough (return demonstration of use in PEP Therapy device), Yes: Pt demo correct for sputum management (returned demonstration of use with Acapella device), Yes: Pt demo correct for improved hydration and Yes: Pt demo correct for hand hygiene Medication Medication reassessment: Yes: Pt demonstrates correct technique timing for MDI, Yes: Pt demonstrates correct technique timing for NEB and Yes: Pt demonstrates correct technique timing for spacer (returned demonstration of proper technique) Diabetes Diabetes:: No Patient Health Questionnaire PHQ-9 Screening 60-Day Re-eval Assessment: 1. Little interest or pleasure in doing things: More than half the days 2. Feeling down, depressed, or hopeless: More than half the days 3. Trouble falling or staying asleep, or sleeping too much: More than half the days 4. Feeling tired or having little energy: More than half the days 5. Poor appetite or overeating: Nearly every day 6. Feeling bad about yourself -- or that you are a failure or have let yourself or your family down: Several days 7. Trouble concentrating on things, such as reading the newspaper or watching television: Several days 8. Moving or speaking so slowly that other people could have noticed. Or the opposite - being so fidgety or restless that you have been moving around a lot more than usual: Not at all 9. Thoughts that you would be better off , or of hurting yourself in some way: Not at all How difficult have these problems made it for you to do your work, take care of things at home, or get along with other people?: Very difficult Total Score: 13 Knowledge Questionaire (BCKQ) Information Information: [place] COPD Knowledge Questionnaire (BCKQ) This questionnaire is designed to find out what you know about your lung problem. It should be completed without help form anyone else. This usually takes between 10 and 20 minutes. Your answers will help us to find out what information you need to help you to understand and manage your lung condition. Pavan the deering which you think is the correct answer. Self-Efficacy 6-Item Scale 60-Day Re-eval Assessment: We would like to know how confident you are in doing certain activities. Please select your confidence level for: Fatigue Select Number: 3 Physical Discomfort or Pain Select Number: 4 Emotional Distress Select Number: 5 Other Symptoms or Health Problems Select Number: 3 Different Tasks and Activities Select Number: 4 Medication Select Number: 4 Total Score:: 3 Nutrition Survey Nutrition Survey Instructions Scoring Instructions
[2024-01-10 09:38] VITALS: BP 140/80; BP 152/84; O2SAT 90; BMI 30.3
== END 2024-02-02 23:59 ==
LOC: PR 13:00
PROVIDERS: PCP Family Medicine Geriatric Medicine
DX: J44.9 Chronic obstructive pulmonary disease, unspecified (principal); C78.00 Secondary malignant neoplasm of unspecified lung; J70.1 Chronic and other pulmonary manifestations due to radiation
CPT/HCPCS: 97150; G0239

== ENCOUNTER → 2024-01-15 | Outpatient (CLI) | payer MEDICARE, OTHER, SELFPAY ==
[2024-01-10 09:38] VITALS: BMI 30.3
--- NOTE | 2024-01-15 16:21 | RAD_ITS ---
STUDY: X-RAY CHEST REASON FOR EXAM: Male, 78 years old. WHEEZING . One-week history of coughing. TECHNIQUE: PA and lateral views of the chest. COMPARISON: Comparison is made with prior study dated August 09, 2003. FINDINGS: Elevation of the right hemidiaphragm with the volume loss in the right hemithorax. There is evidence of a consolidation in the right upper lobe with loss of volume. Patchy infiltrate in the right lower lobe. Infiltration in the left upper lobe. Radiographic follow-up is recommended until clearing. CT scan may be indicated. Normal size heart. Normal mediastinum and ghulam. Normal visualized pulmonary arteries. There is atherosclerotic tortuosity of the aortic arch and descending thoracic aorta. There are diffuse degenerative changes of the visualized thoracic spine. Normal visualized ribs, clavicles, and shoulders. There is no demonstrated abnormality of the visualized soft tissue structures of the upper abdomen. RAD/Chest PA and Lateral IMPRESSION: Volume loss in the right hemithorax with rib right upper lobe consolidation and loss of volume with patchy infiltrate in the left upper lobe as well as at the right lung base with blunting of right costophrenic angle. Radiographic follow-up recommended. Electronically Signed: López Palafox MD at 14:32 EDT ,
[2024-01-15 17:13] LABS: Absolute Lymphocyte Count 1.06 X10^3/uL (0.83-4.51); Absolute Neutrophil Count 7.5 X10^3/uL (2.0-7.7); Basophil# 0.03 X10^3/uL; Basophil% 0.3 % (0-1); Eosinophil# 0.06 X10^3/uL; Eosinophils% 0.6 % (0-5); Hemoglobin 16.1 g/dL (13.0-16.5); Lymphocyte # 1.06 X10^3/ul (0.83-4.51); Lymphocyte % 11.3 % (19-41); Mean Corp Hgb Conc 32.2 g/dL (32-36); Mean Corpuscular Hgb 29.7 pg (27.0-32.0); Mean Corpuscular Volume 92.3 fL (80-94); Mean Platelet Vol. 10.2 fl (6.2-12.0); Monocyte# 0.58 X10^3/uL; Monocyte% 6.2 % (0-10); NRBC Flagged by Analyzer 0 % (0-5); Neutrophil % 80.3 % (47-70); Platelet Count 177 K/mm3 (150-450); RBC Distribution Width CV 14.6 % (11.6-14.6); RBC Distribution Width SD 49.5 fl (35.1-43.9); Red Blood Count 5.42 M/mm3 (4.6-6.2); White Blood Count 9.4 K/mm3 (4.4-11.0)
[2024-01-15 18:24] LABS: ALB/GLOB Ratio 0.8 RATIO (0.9-2.4); AST(SGOT) 26 U/L (15-37); Alanine Aminotransfer ALT/SGPT 37 U/L (16-61); Alkaline Phosphatase 95 U/L (45-117); Anion Gap 6 (5-15); BUN 28 mg/dL (7-18); BUN/Creat Ratio 16.2 RATIO (10-20); Calcium,Total 8.6 mg/dL (8.5-10.1); Chloride 103 mmol/L (98-107); Creatinine, Serum 1.73 mg/dL (0.70-1.30); EST Glomerular Filtration Rate 41 mL/min (>60); Est Glom Filt Rate - Afr Amer 49 mL/min (>60); Globulin 3.9 g/dL (2.2-4.2); Glucose 112 mg/dL (74-106); Potassium 4.4 mmol/L (3.5-5.1); Protein, Total 6.9 g/dL (6.4-8.2); Sodium Level 136 mmol/L (136-145)
== END | disposition home or self-care (01) ==
LOC: RAD 16:20
PROVIDERS: PCP Family Medicine Geriatric Medicine; Referring Provider Family Medicine Geriatric Medicine; Visit Provider Family Medicine Geriatric Medicine
DX: R06.2 Wheezing (principal); E78.5 Hyperlipidemia, unspecified
CPT/HCPCS: 36415; 71046; 80053; 85025

== ENCOUNTER → 2024-01-16 | Outpatient (CLI) | payer MEDICARE, OTHER, SELFPAY ==
[2024-01-10 09:38] VITALS: BMI 30.3
== END | disposition home or self-care (01) ==
LOC: PSN 09:47
PROVIDERS: PCP Family Medicine Geriatric Medicine; Referring Provider Family Medicine Geriatric Medicine; Visit Provider Family Medicine Geriatric Medicine
DX: R68.83 Chills (without fever) (principal)
CPT/HCPCS: 87631

== ENCOUNTER 2024-01-26 18:56 | Inpatient (IN) | payer MEDICARE, OTHER, SELFPAY ==
[2024-01-10 09:38] VITALS: BMI 30.3
[2024-01-26] VITALS (11 sets, daily range): BP systolic 113–137; BP diastolic 80–95; PULSE 80–100; RESP 16–32; TEMP 36.5–37; O2SAT 92–96; BMI 30.2; BMI 30.5
--- NOTE | 2024-01-26 19:20 | RAD_ITS ---
INDICATION: cough EXAMINATION/TECHNIQUE: X-RAY - XR Chest 2 Views COMPARISON: 01/15/2024 FINDINGS: LIFE-SUPPORT AND LINES: 1. None HEART AND VESSELS: Cardiac contour is partially obscured due to increased opacity of the RIGHT hemithorax. LEFT cardiac contour is unchanged. LUNGS AND PLEURAL SPACES: Significant volume loss and diffusely increased density throughout the RIGHT hemithorax. There is mediastinal shift to the RIGHT. There is a RIGHT effusion. Additional areas of atelectasis and interstitial prominence in the LEFT midlung without interval change. Mild interstitial prominence at the LEFT base. MEDIASTINUM AND HILAR REGIONS: No masses adenopathy noted. No areas of calcification. Visualized upper airway is normal in position. BONY ELEMENTS: No acute bony changes noted. RAD/Chest PA and Lateral IMPRESSION: 1. Significant interval worsening throughout the RIGHT hemithorax with diffuse increased density, RIGHT effusion appears to be worsened. Significant volume loss noted. 2. Persistent interstitial thickening in the LEFT midlung, and at the LEFT lung base. 3. No congestive failure. Electronically Signed: Jaxon Conte MD at 20:03 EDT ,
--- NOTE | 2024-01-26 19:23 | EDS_ITS ---
<Statement entered by Pretty Jack MD - 01/26/24 22:17> I have personally performed a face to face assessment of the patient and have reviewed the NARDA Note. Patient was seen and examined with NARDA Onelia Zarco. I personally saw and examined this patient and agree with documentation. treatment, and plan. My min findings are below: HPI: This is a 78-year-old male with history of COPD, chronic respiratory failure and lung cancer status post right lung resection who presents to the emergency department for cough and shortness of breath. Patient had been treated outpatient with levofloxacin for pneumonia. The patient states that after finishing and completing the antibiotic course he continues to have shortness of breath with a nonproductive cough and no hemoptysis. Patient has been using inhalers at home without any relief. He endorses some fevers but no chills. No chest pain. No vomiting. No abdominal pain. No urinary symptoms. Physical Exam: GEN: Alert, appears fatigued. HEAD: NC, AT HEENT: Moist mucous membranes. NECK: Supple, Full range of motion. CHEST: Normal, nontender HEART: Regular rate and rhythm. Normal capillary refill. LUNGS: Diminished right sided lung sounds. No wheezes, rales or rhonchi. ABD: Soft, NT, ND EXT: No cyanosis, edema. Normal ROM. Strength testing intact SKIN: Warm, dry. No rashes or lesions NEURO: Grossly intact. No deficits PSYCH: Normal affect MDM: Patient presents to the emergency department for cough and shortness of breath. I personally reviewed the chest x-ray which shows near opacification of the right lung allison concerning for pneumonia in the right lung. There is also wedge consolidation of the left lung concerning for bilateral pneumonia. Given that the patient failed outpatient course of levofloxacin, will will escalate antibiotic coverage to broad-spectrum antibiotics, Zosyn and vancomycin in the ED. He was also given nebulized breathing treatments. Patient maintaining oxygenation on home 3 L of oxygen. Will admit the patient for continued IV antibiotic therapy for bilateral pneumonia. Pretty Jack M.D. HPI History of Present Illness Chief Complaint: Shortness of Breath Narrative Narrative: 78-year-old male with past medical history of lung cancer not currently on treatment, COPD wearing baseline 3 to 4 L during the day and 5 L at night presents with recurrent cough and dyspnea over the last 2 days. He states about a week and a half ago he developed a dry cough and dyspnea. His primary care doctor Ramesh did a chest x-ray and diagnosed bilateral pneumonia. He finished 1 week of levofloxacin 4 days ago and a 10-day steroid taper 2 days ago. He felt better but yesterday the dry cough came back and today he states he feels as bad with the cough and dyspnea as he did at the beginning of the illness. He uses rescue and maintenance inhalers as well as a nebulizer twice daily but did not seem to help today. He has chills but no fever. His chest hurts with coughing. He denies history of CAD or DVT/PE. He has had lung cancer for over 10 years. He had a right upper lobe resection and last year did chemotherapy and radiation is not currently on treatment. He sees Dr. Noble. [facility] Medical History Alcohol use Arthritis Bladder cancer Bladder carcinoma Cancer Cardiology follow-up encounter Chronic back pain Chronic gout Chronic kidney disease, stage 3 CKD (chronic kidney disease) stage 3, GFR 30-59 ml/min COPD (chronic obstructive pulmonary disease) Encounter for screening for COVID-19 Former smoker Gastric reflux GERD (gastroesophageal reflux disease) Gout History of echocardiogram History of edema History of irregular heartbeat History of steroid therapy History of stress test Hyperlipidemia Hypogonadism Lung cancer LUIS CARLOS (obstructive sleep apnea) Pulmonary embolism Renal cancer Renal cell carcinoma Restless legs Sleep apnea TIA (transient ischemic attack) Walker as ambulation aid Wears glasses Home Medications ?Medication ?Instructions ?Recorded ?Last Taken ?Type albuterol sulfate 90 mcg/actuation 1 - 2 puff inhalation Q4H PRN PRN 10/20/13 10/26/13 History aerosol inhaler Wheezing 1 - 2 PUFF pramipexole 0.5 mg tablet 0.5 mg PO BID RLS 10/05/16 Unknown History pantoprazole 40 mg tablet,delayed 40 mg PO QHS 07/17/19 Unknown History release acetaminophen 325 mg tablet 650 mg (2 x 325 mg) PO Q4H PRN PRN 07/24/19 Unknown Rx Pain Score 1-5/10 doxepin 25 mg capsule 100 mg PO QHS SLEEP 11/05/20 Unknown History budesonide 0.5 mg/2 mL suspension 0.5 mg (2 mL) inhalation BID #120 05/02/21 Unknown Rx for nebulization mL febuxostat 40 mg tablet (Uloric) 40 mg PO QHS GOUT 06/21/21 Unknown History prednisone 5 mg tablet 7.5 mg PO DAILY 01/14/23 Unknown History vitamin Q11-dhocxxp B1 1,000 1 ml IM .Q2W 01/14/23 Unknown History mcg-100 mg/mL injection solution albuterol sulfate 2.5 mg/3 mL 2.5 mg (3 mL) inhalation Q4H PRN 08/09/23 Unknown Rx (0.083 %) solution for nebulization #25 vials budesonide 160 mcg-glycopyr 9 2 inh inhalation BID 01/26/24 Unknown History mcg-formot 4.8 mcg/actuation HFA inhaler ([employer] Aerosphere) testosterone cypionate 100 mg/mL 100 mg IM .twice monthly 01/26/24 Unknown History intramuscular oil (Depo-Testosterone) Allergy/AdvReac Type Severity Reaction Status Date / Time No Known Allergies Allergy Verified 01/26/24 19:00 Family History Father Malignant neoplasm of lung Mother Hypertension Surgical History H/O kidney removal History of appendectomy History of back surgery History of bladder surgery History of cataract extraction History of colonoscopy History of thoracotomy History of tonsillectomy Social History Smoking Status: Former smoker quit date: 08/05/89 pack-years: 38 ROS ROS ED ROS Narrative Constitutional: Positive for chills, no fever. CVS: Negative for chest pain. Respiratory: Positive for shortness of breath, cough. GI: Negative for abdominal pain, nausea, vomiting. EXAM Physical Exam Narrative Exam Narrative: CONST: Patient sitting in no acute distress. EYES: Normal inspection. NECK: Normal inspection. RESP: Mildly tachypneic 24/minute, diminished right lung sounds. CVS: Regular rate and rhythm, no murmur, no gallop. SKIN: Color normal, no rash, warm, dry, intact. EXTREMITIES: Normal appearance, no pedal edema. NEURO: Alert and answering questions appropriately. PSYCH: Normal affect. Const Vital Signs: 01/26/24 18:57 01/26/24 19:00 01/26/24 19:10 Temperature 98.6 F 98.6 F Temperature Source Temporal Temporal Pulse Rate 100 97 Respiratory Rate 24 H 24 H Respiratory Effort Short of Breath Labored Respiratory Pattern Tachypnea Blood Pressure 137/94 H 137/94 H Blood Pressure Mean 108 108 Pulse Ox 93 92 Oxygen Delivery Method Nasal Cannula Nasal Cannula Nasal Cannula Oxygen Flow Rate (L/min) 3 3 3 01/26/24 19:32 01/26/24 19:57 01/26/24 20:00 Temperature 98.5 F Temperature Source Oral Pulse Rate 97 95 83 Respiratory Rate 32 H 22 H 22 H Respiratory Effort Respiratory Pattern Tachypnea Blood Pressure 124/88 H 124/88 H Blood Pressure Mean 100 100 Pulse Ox 92 96 Oxygen Delivery Method Nasal Cannula Nasal Cannula Oxygen Flow Rate (L/min) 3 3 01/26/24 20:00 01/26/24 20:46 01/26/24 21:00 Temperature 98.4 F Temperature Source Pulse Rate 85 94 95 Respiratory Rate 24 H 16 Respiratory Effort Respiratory Pattern Blood Pressure 113/80 135/86 H Blood Pressure Mean 91 102 Pulse Ox 94 96 Oxygen Delivery Method Nasal Cannula Oxygen Flow Rate (L/min) 3 MDM MDM MDM Narrative Medical decision making narrative: History gathered from: Patient and spouse Differential: COPD exacerbation, pneumonia Patient with history of COPD on 3 to 4 L baseline during the day and 5 L at night, lung cancer not currently on treatment presents with recurrent worsening cough and dyspnea over the last 2 days. He just completed levofloxacin and prednisone for bilateral pneumonia. He appears well and nontoxic. He was initially tachypneic around 24/minute, heart rate 100, saturating 93% on his baseline 3 L. Right lung sounds are diminished. No clear wheezing is noted. He has a history of right upper lobe resection from cancer. Labs show white count of 12.9, normal electrolytes, BUN 26, creatinine 2.1 around baseline. EKG is nonischemic and troponin is 15. CXR shows interval worsening of pneumonia with almost completely right-sided infiltrate and persistent left midlung pneumonia. He was treated with a DuoNeb and IV vancomycin and Zosyn. Case was discussed with the hospitalist for admission for worsening pneumonia and failure of outpatient therapy. Lab Data Attestation: I reviewed the patient's lab results. Labs: Laboratory Results - last 24 hr 01/26/24 19:29 WBC 12.9 H RBC 5.81 Hgb 16.9 H Hct 53.3 MCV 91.7 MCH 29.1 MCHC 31.7 L RDW Std Deviation 48.3 H RDW Coeff of Crystal 14.4 Plt Count 202 MPV 10.1 Immature Gran % (Auto) 4.200 H Neut % (Auto) 82.6 H Lymph % (Auto) 6.4 L Toombs % (Auto) 6.0 Eos % (Auto) 0.5 Baso % (Auto) 0.3 Absolute Neuts (auto) 10.7 H Absolute Lymphs (auto) 0.82 L Nucleated RBC % 0 Differential Comment SCANNED Sodium 137 Potassium 4.1 Chloride 103 Carbon Dioxide 30.0 Anion Gap 4 L BUN 26 H Creatinine 2.10 H Estim Creat Clear Calc 37.71 Est GFR (MDRD) Af Amer 40 L Est GFR (MDRD) Non-Af 33 L BUN/Creatinine Ratio 12.4 Glucose 109 H Calcium 8.5 Troponin I High Sens 15 Radiography Diagnostic Testing: Clinical Impression(s) from Imaging Studies Chest X-Ray 01/26/24 19:20 IMPRESSION: 1. Significant interval worsening throughout the RIGHT hemithorax with diffuse increased density, RIGHT effusion appears to be worsened. Significant volume loss noted. 2. Persistent interstitial thickening in the LEFT midlung, and at the LEFT lung base. 3. No congestive failure. Electronically Signed: Jaxon Conte MD at 20:03 EDT , ED attending interpretation of 2 view chest x-ray shows worsening pneumonia with diffuse infiltrate throughout the right lung and persistent left midlung infiltrate. EKG Initial EKG: Attestation: I personally reviewed and interpreted this EKG as follows: Comments: Normal sinus rhythm at 90 bpm Normal intervals, no acute ischemic changes Discharge Plan Triage Chief Complaint: Shortness of Breath ED Midlevel Provider: Onelia Zarco ED Provider: Pretty Jack Dx/Rx/DC Orders Clinical Impression: Bilateral pneumonia, COPD (chronic obstructive pulmonary disease), Failure of outpatient treatment, History of lung cancer, Chronic hypoxemic respiratory failure Prescriptions: No Action febuxostat [Uloric] 40 mg tablet 40 mg PO QHS albuterol sulfate 1 INHALER inhaler 1 - 2 puff INHALATION Q4H PRN PRN (Reason: Wheezing) pramipexole 0.5 MG tablet 0.5 mg PO BID pantoprazole 40 MG tablet 40 mg PO QHS acetaminophen 325 MG tablet 650 mg PO Q4H PRN PRN (Reason: Pain Score 1-5/10) 0RF doxepin 25 MG capsule 100 mg PO QHS vitamin [id number] B1 1,000-100 mg/mL Solution 1 ml IM .Q2W prednisone 5 mg Tablet 7.5 mg PO DAILY albuterol sulfate 2.5 mg /3 mL (0.083 %) solution for nebulization 2.5 mg inhalation Q4H PRN Qty: 25 0RF Rx Instructions: Use q4 hours and PRN for wheezing [employer] Aerosphere 160-9-4.8 mcg/actuation HFA aerosol inhaler 2 inh inhalation BID testosterone cypionate [Depo-Testosterone] 100 mg/mL oil 100 mg IM .twice monthly Rx Instructions: next dose due 02/02 budesonide 0.5 mg/2 mL suspension for nebulization 0.5 mg inhalation BID Qty: 120 3RF Primary Care Provider: David Chandler Chi Referrals: David Chandler Chi, MD [Primary Care Provider] - Print Language: Nepalese
[2024-01-26] MEDS: Ipratropium/Albuterol Sulfate 3 ML AMPUL.NEB INHALATION (19:31)
--- NOTE | 2024-01-26 19:39 | EKG12_ITS ---
Test Reason : SOB Blood Pressure : / mmHG Vent. Rate : 090 BPM Atrial Rate : 090 BPM P-R Int : 158 ms QRS Dur : 074 ms QT Int : 356 ms P-R-T Axes : 047 -10 034 degrees QTc Int : 435 ms Normal sinus rhythm Normal ECG Confirmed by Wayne Cornell ([id number]), primer expeditor and drier WILLARD ESCOBEDO ([id number]) on 01/28/2024 8:01:00 AM Referred By: Confirmed By:Wayne Cornell
[2024-01-26 19:53] LABS: Absolute Lymphocyte Count 0.82 X10^3/uL (0.83-4.51); Absolute Neutrophil Count 10.7 X10^3/uL (2.0-7.7); Basophil# 0.04 X10^3/uL; Basophil% 0.3 % (0-1); Eosinophil# 0.06 X10^3/uL; Eosinophils% 0.5 % (0-5); Hematocrit 53.3 % (40-54); Hemoglobin 16.9 g/dL (13.0-16.5); Lymphocyte # 0.82 X10^3/ul (0.83-4.51); Lymphocyte % 6.4 % (19-41); Mean Corp Hgb Conc 31.7 g/dL (32-36); Mean Corpuscular Hgb 29.1 pg (27.0-32.0); Mean Corpuscular Volume 91.7 fL (80-94); Mean Platelet Vol. 10.1 fl (6.2-12.0); Monocyte# 0.78 X10^3/uL; NRBC Flagged by Analyzer 0 % (0-5); Neutrophil # 10.67 X10^3/uL (2.7-7.7); Neutrophil % 82.6 % (47-70); POSITIVE MORPHOLOGY YES; Platelet Count 202 K/mm3 (150-450); RBC Distribution Width CV 14.4 % (11.6-14.6); RBC Distribution Width SD 48.3 fl (35.1-43.9); Red Blood Count 5.81 M/mm3 (4.6-6.2); White Blood Count 12.9 K/mm3 (4.4-11.0)
[2024-01-26 20:02] LABS: Anion Gap 4 (5-15); BUN 26 mg/dL (7-18); BUN/Creat Ratio 12.4 RATIO (10-20); Calcium,Total 8.5 mg/dL (8.5-10.1); Chloride 103 mmol/L (98-107); EST Glomerular Filtration Rate 33 mL/min (>60); Est Glom Filt Rate - Afr Amer 40 mL/min (>60); Estimated Creatinine Clearance 37.71 ml/min; Glucose 109 mg/dL (74-106); Potassium 4.1 mmol/L (3.5-5.1); Sodium Level 137 mmol/L (136-145); Troponin-I HS 15 pg/mL (3.0-78.0)
[2024-01-26 20:14] LABS: Differential Indicated SCAN CRITERIA MET
[2024-01-26 20:15] LABS: Differential Comment SCANNED
[2024-01-26] MEDS: Piperacil/Tazobactam 2,250 MG in 0.9% Normal Saline (50mL MB+) 50 ML 100 MG IV (20:37)
--- NOTE | 2024-01-26 21:01 | PCM.HP.STD ---
[facility] - General General Date of Admission: 01/26/24 Date of Service: 01/26/24 Chief Complaint: Worsening SOB and Cough. [facility] Narrative CHECO JOHNSON, is a 78 M with a past medical history of essential hypertension, hyperlipidemia, obesity; with BMI of 30.2 this admission, LUIS CARLOS, history of PE, CKD; stage III, GERD, OA; with history of laminectomy for herniated nucleus pulposus L2-L3 and chronic back pain, history of bladder cancer, history of renal cell cancer; s/p nephrectomy, chronic gout, hypogonadism, history of appendectomy, history of tobacco abuse (quit ~1989) after 38 years; with subsequent asthma/COPD overlap syndrome, chronic hypoxic respiratory failure; on 3-4L NC continuously in the day and 5L NC at night, history of Lung Cancer (~2013); s/p RUL resection last year followed by chemotherapy and radiation but currently not on treatment followed by Dr. Noble of the oncology service, recently diagnosed Bilateral Pneumonia treated by his PCP / Dr. Chandler with oral Levaquin for 7 days and Prednisone-taper over 10 days (which he finished 2 days ago) who presents to [facility] complaining of worsening SOB and cough. Mr. Johnson reports he initially felt better yesterday but then as the day progressed his cough returned followed by CHAVES that progressed to SOB at rest with patient feeling like his condition is as bad as it was prior to initial treatment. He stated he tried to use his maintenance and rescue inhalers but they were also not effective in controlling his symptoms so he finally decided to come in for further evaluation and treatment. He states he was seen by Dr. Noble a few weeks ago and told he had an area of concern for possible return of his lung cancer with CT scan of the chest scheduled for early next month as a precursor to possibly restarting oncologic treatment. He admits to chills, wheezing and pleuritic chest discomfort made worse with coughing but he denies associated fever, nausea, vomiting, constipation, diarrhea, palpitations or diaphoresis. In the ER he was noted to have CT evidence of Severe Right sided Pneumonia involving almost the entire Right hemithorax with Right pleural Effusion likely due to suspected Recurrence of Lung Cancer complicated by clinical evidence of AE asthma/COPD with gpnza-bj-zloimih hypoxic respiratory failure and he was then admitted to the general medical floor for ongoing care for a stay that is expected to extend beyond 2 midnights. [facility] Medical History Wears glasses Cancer Alcohol use History of steroid therapy Walker as ambulation aid Arthritis Gout Restless legs TIA (transient ischemic attack) Gastric reflux Sleep apnea Former smoker History of edema Cardiology follow-up encounter History of echocardiogram History of stress test History of irregular heartbeat Lung cancer Encounter for screening for COVID-19 Hypogonadism Hyperlipidemia Chronic kidney disease, stage 3 Chronic gout Renal cancer Bladder cancer Pulmonary embolism CKD (chronic kidney disease) stage 3, GFR 30-59 ml/min Renal cell carcinoma Bladder carcinoma Chronic back pain GERD (gastroesophageal reflux disease) LUIS CARLOS (obstructive sleep apnea) COPD (chronic obstructive pulmonary disease) Home Medications ?Medication ?Instructions ?Recorded ?Last Taken ?Type albuterol sulfate 90 mcg/actuation 1 - 2 puff inhalation Q4H PRN PRN 10/20/13 10/26/13 History aerosol inhaler Wheezing 1 - 2 PUFF pramipexole 0.5 mg tablet 0.5 mg PO BID RLS 10/05/16 Unknown History pantoprazole 40 mg tablet,delayed 40 mg PO QHS 07/17/19 Unknown History release acetaminophen 325 mg tablet 650 mg (2 x 325 mg) PO Q4H PRN PRN 07/24/19 Unknown Rx Pain Score 1-5/10 doxepin 25 mg capsule 100 mg PO QHS SLEEP 11/05/20 Unknown History budesonide 0.5 mg/2 mL suspension 0.5 mg (2 mL) inhalation BID #120 05/02/21 Unknown Rx for nebulization mL febuxostat 40 mg tablet (Uloric) 40 mg PO QHS GOUT 06/21/21 Unknown History prednisone 5 mg tablet 7.5 mg PO DAILY 01/14/23 Unknown History vitamin [id number] B1 1,000 1 ml IM .Q2W 01/14/23 Unknown History mcg-100 mg/mL injection solution albuterol sulfate 2.5 mg/3 mL 2.5 mg (3 mL) inhalation Q4H PRN 08/09/23 Unknown Rx (0.083 %) solution for nebulization #25 vials budesonide 160 mcg-glycopyr 9 2 inh inhalation BID 01/26/24 Unknown History mcg-formot 4.8 mcg/actuation HFA inhaler ([employer]) testosterone cypionate 100 mg/mL 100 mg IM .twice monthly 01/26/24 Unknown History intramuscular oil (Depo-Testosterone) Allergy/AdvReac Type Severity Reaction Status Date / Time No Known Allergies Allergy Verified 01/26/24 19:00 Family History Father Malignant neoplasm of lung Mother Hypertension Surgical History History of cataract extraction History of colonoscopy History of thoracotomy History of tonsillectomy H/O kidney removal History of appendectomy History of back surgery History of bladder surgery Social History Smoking Status: Former smoker quit date: 08/05/89 pack-years: 38 ROS ROS Narrative Review of systems: General: Patient admits to chills but denies fever. HENT: Denies headache, denies stuffy nose, denies sore throat EYES: Denies changes in vision or discharge from eyes. Resp: Patient admits to shortness of breath and cough as per HPI. Cardiac: Denies chest pain, palpitations or heart racing. GI: Denies abdominal pain, denies changes in bowel, denies nausea or vomiting. : Denies changes in urination Extremity: Denies swelling Musculoskeletal: Feels somewhat generally weak and unwell but denies arthralgias or myalgias. Neuro: Patient denies headache, paresthesias or focal neurologic deficits. Heme: Denies any bleeding or bruising Skin: Denies rashes Psychiatric: No complaints voiced related to uncontrolled depression or anxiety. Endocrine: No polyuria, polydipsia or polyphagia. The rest of the 14 point ROS was negative except for positives in HPI. Vital Signs Vital Signs Vital Signs: 01/26/24 18:57 01/26/24 19:00 01/26/24 19:10 Temperature 98.6 F 98.6 F Temperature Source Temporal Temporal Pulse Rate 100 97 Respiratory Rate 24 H 24 H Respiratory Effort Short of Breath Labored Respiratory Pattern Tachypnea Blood Pressure 137/94 H 137/94 H Blood Pressure Mean 108 108 Pulse Ox 93 92 Oxygen Delivery Method Nasal Cannula Nasal Cannula Nasal Cannula Oxygen Flow Rate (L/min) 3 3 3 01/26/24 19:32 01/26/24 19:57 01/26/24 20:00 Temperature 98.5 F Temperature Source Oral Pulse Rate 97 95 83 Respiratory Rate 32 H 22 H 22 H Respiratory Effort Respiratory Pattern Tachypnea Blood Pressure 124/88 H 124/88 H Blood Pressure Mean 100 100 Pulse Ox 92 96 Oxygen Delivery Method Nasal Cannula Nasal Cannula Oxygen Flow Rate (L/min) 3 3 01/26/24 20:00 01/26/24 20:46 Temperature 98.4 F Temperature Source Pulse Rate 85 94 Respiratory Rate 24 H Respiratory Effort Respiratory Pattern Blood Pressure 113/80 Blood Pressure Mean 91 Pulse Ox 94 Oxygen Delivery Method Oxygen Flow Rate (L/min) Weight Weight: 235 lb Body Mass Index (BMI) 30.2 Physical Exam Const alert and oriented x3 Constitutional Narrative: Mild distress noted with patient chronically ill in appearance. General Appearance: cooperative HEENT normocephalic, head/scalp atraumatic, hearing grossly normal bilaterally and moist oral mucous membranes Eyes PERRL and EOMs intact bilaterally Neck no lymphadenopathy and supple Resp Resp Narrative: Diminished breath sounds R>>L with scattered wheezes and rhonci. Auscultation: rhonchi and wheezes Cardio regular rate and regular rhythm GI normal to inspection, nondistended, normoactive bowel sounds, soft to palpation, non-tender and non-distended Extremity normal to inspection and full ROM Skin Skin Narrative: Patient has no evidence of jaundice, rash or abscess. Neuro oriented x3, CN's II-XII intact bilaterally, moves all extremities and no focal motor deficits Sensorium / Orientation: awake, alert, oriented to person, oriented to place and oriented to time Speech: speech normal Psych affect normal Results Medical Records Data Attestation: I reviewed the patient's medical records Lab / Micro Data Attestation: I reviewed the patient's lab results. 01/26/24 19:29 01/26/24 19:29 Labs: Laboratory Results - last 24 hr 01/26/24 19:29: WBC 12.9 H, RBC 5.81, Hgb 16.9 H, Hct 53.3, MCV 91.7, MCH 29.1, MCHC 31.7 L, RDW Std Deviation 48.3 H, RDW Coeff of Crystal 14.4, Plt Count 202, MPV 10.1, Immature Gran % (Auto) 4.200 H, Neut % (Auto) 82.6 H, Lymph % (Auto) 6.4 L, [place] % (Auto) 6.0, Eos % (Auto) 0.5, Baso % (Auto) 0.3, Absolute Neuts (auto) 10.7 H, Absolute Lymphs (auto) 0.82 L, Nucleated RBC % 0, Differential Comment SCANNED, Sodium 137, Potassium 4.1, Chloride 103, Carbon Dioxide 30.0, Anion Gap 4 L, BUN 26 H, Creatinine 2.10 H, Estim Creat Clear Calc 37.71, Est GFR (MDRD) Af Amer 40 L, Est GFR (MDRD) Non-Af 33 L, BUN/Creatinine Ratio 12.4, Glucose 109 H, Calcium 8.5, Troponin I High Sens 15 Imaging Radiology Impression Chest X-Ray 01/26/24 19:20 IMPRESSION: 1. Significant interval worsening throughout the RIGHT hemithorax with diffuse increased density, RIGHT effusion appears to be worsened. Significant volume loss noted. 2. Persistent interstitial thickening in the LEFT midlung, and at the LEFT lung base. 3. No congestive failure. Electronically Signed: Jaxon Conte MD at 20:03 EDT , [facility] Imaging Services [address] [place] [id number] Chest without Contrast MR#: [id number] Acct: [id number] Name: CHECO JOHNSON Rep #: [id number] : 1945 M 78 From: Karina Cervantes MD PCP: Dr. David Chandler MD Status: ADM IN Study: Chest without Contrast Date of Exam: 01/27/24 Exam# [id number] Ordering Dr: Kelvin Perez DO INDICATION: Pneumonia with Effusion of Hemithorax with Lung CA SOB AND COUGH X 2 DAYS,RECENT TX FOR PNEUMONIA, HX:COPD,CKD,CRF,GOUT,HTN,LUNG,BLADDER AND KIDNEY CANCER-PT HAD CHEMO AND RADIATION SURGERY:LUMBAR FUSION,THORACOTOMY RT LUNG,NEPHRECTOMY,BLADDER SURG EXAMINATION: CT CHEST WITHOUT CONTRAST - CT Chest W/O Contrast Injection TECHNIQUE: Helically acquired images were obtained of the chest. The protocol utilizes one or more of the following dose reduction techniques: automated exposure control, adjustment of mA and/or kV according to patient size,and/or use of iterative reconstruction technique. IV Contrast dosage and agent: None. RADIATION DOSAGE (If Supplied By Facility): CTDIvol = ( 19.83 ) mGy, DLP = ( 728.57 ) mGycm COMPARISON: Chest x-rays 01/26/2024, 01/15/2024. FINDINGS: LUNGS: Surgical clips in the right mid lung to right hilar region presumed lobectomy. There is extensive consolidation throughout the majority of the right lung including presumed right middle lobe and right lower lobe with significant volume loss. Small portion of aerated lung in the right upper chest. Cannot exclude mass within the area of consolidation. Correlation with surgical history is needed. There are small foci of air within the area of atelectatic lung presumed air bronchograms. Cannot exclude bronchopleural fistula on the proper setting. Focal area of consolidation in the left upper lobe extending from the hilum to the periphery and associated scarring. Cannot exclude central mass in this region. There is a 7 mm nodular opacity in the left lower lobe. 2 smaller nodular opacities in the left upper lobe. Underlying emphysematous changes. No consolidation. LARGE AIRWAYS: No well-defined bronchus identified on the right beyond the hilum, with surgical clips in the region. There is suggestion of soft tissue or material filling the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 intermedius, which is nonopacified more distally. PLEURA: Small right pleural effusion. No pneumothorax. MEDIASTINUM: Several mildly enlarged lymph nodes in the mediastinum, largest right peritracheal 1.2 cm short axis. HEART: Not enlarged. CORONARY ARTERIES: Coronary artery calcification is not seen. AORTA/VESSELS: No aortic aneurysm. ESOPHAGUS: Unremarkable. UPPER ABDOMEN: No acute findings. BONES/SOFT TISSUES: No acute abnormality. OTHER/LINES: None. CT/Chest without Contrast IMPRESSION: 1. Postsurgical changes on the right postlobectomy with volume loss. Extensive consolidation in the right lung with atelectasis and volume loss. Suspect bronchial occlusion of the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 intermedius by either soft tissue or possibly mucous plugging. Correlate surgical history regarding which lobe resected. Cannot exclude endobronchial mass. 2. Small locules of air within the atelectatic lung presumed air bronchograms but extrapleural air bronchopleural fistula is difficult to exclude. 3. Subsegmental consolidation in the left upper lobe possibly pneumonia and/or scarring, central mass not excluded. 4. A few small nodules in the left lung metastatic disease not excluded. Mediastinal adenopathy. Electronically Signed: Karina Cervantes MD at 3:02 EDT , CC: Dr. Kelvin Perez DO; Dr. David Chandler MD ~ Missing Persons Investigator: Signed [facility] Imaging Services [address] [place] [address] Spine Lumbar without Contrast MR#: [id number] Acct: [id number] Name: CHECO JOHNSON Rep #: [id number] : 1945 M 78 From: Karina Cervantes MD PCP: Dr. David Chandler MD Status: ADM IN Study: Spine Lumbar without Contrast Date of Exam: 01/27/24 Exam# [id number] Ordering Dr: Kelvin Perez DO INDICATION: Evaluate for metastatic disease w/ h/o Lung CA. EXAMINATION: CT LUMBAR SPINE - CT Spine Lumbar W/O Contrast Injection TECHNIQUE: Helically acquired images were obtained of the lumbar spine. 2D reformats were reviewed. A radiation dose optimization technique was used for this scan. The protocol utilizes one or more of the following dose reduction techniques: automated exposure control, adjustment of mA and/or kV according to patient size,and/or use of iterative reconstruction technique. IV Contrast dosage and agent: None. RADIATION DOSAGE (If Supplied By Facility): CTDIvol = ( 27.25 ) mGy, DLP = ( 880.08 ) mGycm COMPARISON: Lumbar spine x-rays 12/06/2023 FINDINGS: Surgical hardware posterior vertical bars and pedicle screws L3-S1, and postsurgical changes. ALIGNMENT: Minimal retrolisthesis at L2-3, unchanged from the prior. Mild curvature convex left. MINERALIZATION: Normal. VERTEBRAL BODIES: No fracture or acute abnormality. DISC SPACES: Disc space narrowing and osteophytes most pronounced at L2-3 with marked endplate irregularity. POSTERIOR ELEMENTS: Facet arthropathy most pronounced at L2-3. SPINAL CANAL: Moderate narrowing at L2-3 secondary to disc osteophyte and retrolisthesis. PARASPINAL SOFT TISSUES: Unremarkable. OTHER: Right nephrectomy. CT/Spine Lumbar without Contrast IMPRESSION: Postsurgical changes and surgical hardware. Degenerative changes most pronounced at L2-3 with endplate irregularity. Electronically Signed: Karina Cervantes MD at 3:14 EDT , CC: Dr. Kelvin Perez DO; Dr. David Chandler MD ~ Missing Persons Investigator: Signed Assessment & Plan Assessment/Plan (1) Pneumonia: QUALIFIERS: Laterality: right Lung location: unspecified part of lung Pneumonia type: due to unspecified organism Qualified Code(s): J18.9 - Pneumonia, unspecified organism (2) Asthma-COPD overlap syndrome: (3) Chronic hypoxemic respiratory failure: (4) Failure of outpatient treatment: (5) History of lung cancer: (6) LUIS CARLOS (obstructive sleep apnea): (7) Obesity (BMI 30.0-34.9): (8) Nicotine dependence, cigarettes, in remission: (9) Renal cell carcinoma: QUALIFIERS: Laterality: unspecified laterality Qualified Code(s): C64.9 - Malignant neoplasm of unspecified kidney, except renal pelvis (10) Bladder carcinoma: PLAN: Plan 1. CXR evidence of Severe Right-sided Pneumonia involving almost the entire Right hemithorax with Right pleural effusion likely due to suspected Recurrence of Lung Cancer in the setting of recent outpatient treatment failure of bilateral pneumonia in spite of appropriate treatment with oral Levaquin and Prednisone - Admit to general medical floor. Continue broad-spectrum antibiotics with IV Vancomycin plus IV Zosyn and await culture and sensitivity data. Check urinary antigens to Legionella and Streptococcus pneumonia. Give Tylenol prn pain or fever. CT scan of the chest this admission worrisome for suspected endobronchial mass and return of lung cancer with mediastinal lymphadenopathy . Finally, we will consult pulmonary to see this patient on-rounds in the AM for further recommendations regarding possible bronchoscopy with help appreciated in advance. 2. AE asthma/COPD with [id number] hypoxic respiratory failure due to #1 - Continue IV Solumedrol and give scheduled and prn nebulizers as previous. Wean supplemental oxygen as tolerated. 3. History of Tobacco Abuse with subsequent Lung Cancer (~2013); s/p RUL resection last year followed by chemotherapy and radiation but currently not on treatment followed by Dr. Noble of the oncology service complicating #1 & #2 - Noted. Patient quit smoking ~1989. 4. Obesity; with BMI of 30.2 this admission plus LUIS CARLOS compounding #1 - #3 - Weight loss recommended. Continue CPAP. 5. Essential hypertension - Continue home medications as previous and give IV Hydralazine prn for systolic blood pressure > 160 mmHg. 6. Hyperlipidemia - Resume statin. 7. History of PE - Noted. 8. CKD; stage III - Stable. 9. GERD - Resume PPI as previous. 10. OA; with history of laminectomy for herniated nucleus pulposus L2-L3 and chronic back pain - Stable. Give Tylenol prn. 11. History of bladder cancer - Noted. 12. History of renal cell cancer; s/p nephrectomy - Noted. 13. Chronic gout - Stable with no evidence of acute flare. Continue Febuxostat as before. 14. Hypogonadism - Stable. Restart testosterone supplementation as outpatient. 15. History of appendectomy - Noted. 16. DVT prophylaxis - Heparin 5,000 units sq BID plus SCD's. Total time: Approximately 75 minutes. Charges/Coding Visit Charges Inpatient E&M: 92028 Init Hosp L3
[2024-01-26] MEDS: Vancomycin HCl 1,500 MG in 0.9% Normal Saline (500mL Bag) 500 ML 250 MG IV (21:31)
--- NOTE | 2024-01-26 22:31 | PCM.RX.CS ---
Consult Antibiotic Management Pharmacy has been consulted to manage selected antibiotic: Vancomycin Type of Intervention Type of Consult: New start Suspected Infection Suspected Infection: Pneumonia Labs Labs: Sodium 137 mmol/L (136-145) 01/26/24 19:29 Potassium 4.1 mmol/L (3.5-5.1) 01/26/24 19:29 Chloride 103 mmol/L (98-107) 01/26/24 19:29 Carbon Dioxide 30.0 mmol/L (21.0-32.0) 01/26/24 19:29 Anion Gap 4 (5-15) L 01/26/24 19:29 BUN 26 mg/dL (7-18) H 01/26/24 19:29 Creatinine 2.10 mg/dL (0.70-1.30) H 01/26/24 19:29 Est GFR (MDRD) Af Amer 40 mL/min (>60) L 01/26/24 19:29 Est GFR (MDRD) Non-Af 33 mL/min (>60) L 01/26/24 19:29 BUN/Creatinine Ratio 12.4 RATIO (10-20) 01/26/24 19:29 Glucose 109 mg/dL (74-106) H 01/26/24 19:29 Dosing Weight Weight used for dosin kg Estimated Creatinine Clearance Estimated Creatinine Clearance: 38 Goal Trough Goal Trough: 15-20 mcg/mL Pharmacy Plan for Drug Dosing Pharmacy Plan for Drug Dosing: Pharmacy Service will continue to monitor and adjust dosing as required. Follow-Up Labs Follow-Up Labs: Trough: Vancomycin Date/Time Labs Ordered Labs to be done on [date and time ordered]: 01/28/24 @2100
[2024-01-26] MEDS: MethylPREDNISolone 125 MG/2 ML Vial IV (22:33)
[2024-01-26] MEDS: Pantoprazole Sodium 40 MG Tablet PO (22:48)
[2024-01-26] MEDS: DOXEPIN HCL 50 MG CAPSULE 100 MG PO (22:48)
[2024-01-26] MEDS: Pramipexole Di-HCl 0.5 MG Tablet PO (22:48)
[2024-01-26] MEDS: Lactobacillis Acidophilus 2 CAP PO (22:48)
[2024-01-26] MEDS: Febuxostat 40 MG TABLET PO (22:49)
[2024-01-27] VITALS (12 sets, daily range): BP systolic 121–131; BP diastolic 75–100; PULSE 62–109; RESP 18–20; TEMP 36.6–36.9; O2SAT 87–96
--- NOTE | 2024-01-27 00:56 | CT_ITS ---
INDICATION: Evaluate for metastatic disease w/ h/o Lung CA. EXAMINATION: CT LUMBAR SPINE - CT Spine Lumbar W/O Contrast Injection TECHNIQUE: Helically acquired images were obtained of the lumbar spine. 2D reformats were reviewed. A radiation dose optimization technique was used for this scan. The protocol utilizes one or more of the following dose reduction techniques: automated exposure control, adjustment of mA and/or kV according to patient size,and/or use of iterative reconstruction technique. IV Contrast dosage and agent: None. RADIATION DOSAGE (If Supplied By Facility): CTDIvol = ( 27.25 ) mGy, DLP = ( 880.08 ) mGycm COMPARISON: Lumbar spine x-rays 12/06/2023 FINDINGS: Surgical hardware posterior vertical bars and pedicle screws L3-S1, and postsurgical changes. ALIGNMENT: Minimal retrolisthesis at L2-3, unchanged from the prior. Mild curvature convex left. MINERALIZATION: Normal. VERTEBRAL BODIES: No fracture or acute abnormality. DISC SPACES: Disc space narrowing and osteophytes most pronounced at L2-3 with marked endplate irregularity. POSTERIOR ELEMENTS: Facet arthropathy most pronounced at L2-3. SPINAL CANAL: Moderate narrowing at L2-3 secondary to disc osteophyte and retrolisthesis. PARASPINAL SOFT TISSUES: Unremarkable. OTHER: Right nephrectomy. CT/Spine Lumbar without Contrast IMPRESSION: Postsurgical changes and surgical hardware. Degenerative changes most pronounced at L2-3 with endplate irregularity. Electronically Signed: Karina Cervantes MD at 3:14 EDT ,
--- NOTE | 2024-01-27 00:56 | CT_ITS ---
INDICATION: Pneumonia with Effusion of Hemithorax with Lung CA SOB AND COUGH X 2 DAYS,RECENT TX FOR PNEUMONIA, HX:COPD,CKD,CRF,GOUT,HTN,LUNG,BLADDER AND KIDNEY CANCER-PT HAD CHEMO AND RADIATION SURGERY:LUMBAR FUSION,THORACOTOMY RT LUNG,NEPHRECTOMY,BLADDER SURG EXAMINATION: CT CHEST WITHOUT CONTRAST - CT Chest W/O Contrast Injection TECHNIQUE: Helically acquired images were obtained of the chest. The protocol utilizes one or more of the following dose reduction techniques: automated exposure control, adjustment of mA and/or kV according to patient size,and/or use of iterative reconstruction technique. IV Contrast dosage and agent: None. RADIATION DOSAGE (If Supplied By Facility): CTDIvol = ( 19.83 ) mGy, DLP = ( 728.57 ) mGycm COMPARISON: Chest x-rays 01/26/2024, 01/15/2024. FINDINGS: LUNGS: Surgical clips in the right mid lung to right hilar region presumed lobectomy. There is extensive consolidation throughout the majority of the right lung including presumed right middle lobe and right lower lobe with significant volume loss. Small portion of aerated lung in the right upper chest. Cannot exclude mass within the area of consolidation. Correlation with surgical history is needed. There are small foci of air within the area of atelectatic lung presumed air bronchograms. Cannot exclude bronchopleural fistula on the proper setting. Focal area of consolidation in the left upper lobe extending from the hilum to the periphery and associated scarring. Cannot exclude central mass in this region. There is a 7 mm nodular opacity in the left lower lobe. 2 smaller nodular opacities in the left upper lobe. Underlying emphysematous changes. No consolidation. LARGE AIRWAYS: No well-defined bronchus identified on the right beyond the hilum, with surgical clips in the region. There is suggestion of soft tissue or material filling the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 intermedius, which is nonopacified more distally. PLEURA: Small right pleural effusion. No pneumothorax. MEDIASTINUM: Several mildly enlarged lymph nodes in the mediastinum, largest right peritracheal 1.2 cm short axis. HEART: Not enlarged. CORONARY ARTERIES: Coronary artery calcification is not seen. AORTA/VESSELS: No aortic aneurysm. ESOPHAGUS: Unremarkable. UPPER ABDOMEN: No acute findings. BONES/SOFT TISSUES: No acute abnormality. OTHER/LINES: None. CT/Chest without Contrast IMPRESSION: 1. Postsurgical changes on the right postlobectomy with volume loss. Extensive consolidation in the right lung with atelectasis and volume loss. Suspect bronchial occlusion of the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 intermedius by either soft tissue or possibly mucous plugging. Correlate surgical history regarding which lobe resected. Cannot exclude endobronchial mass. 2. Small locules of air within the atelectatic lung presumed air bronchograms but extrapleural air bronchopleural fistula is difficult to exclude. 3. Subsegmental consolidation in the left upper lobe possibly pneumonia and/or scarring, central mass not excluded. 4. A few small nodules in the left lung metastatic disease not excluded. Mediastinal adenopathy. Electronically Signed: Karina Cervantes MD at 3:02 EDT ,
--- NOTE | 2024-01-27 01:19 | NURSING ---
pt to CT scan via w/ch
[2024-01-27] MEDS: Piperacil/Tazobactam 3.375 GM in 0.9% Normal Saline (50mL MB+) 50 ML IV ×3 (05:18→23:41)
[2024-01-27] MEDS: 0.9% Saline Lock 10 ML Syringe IV ×2 (05:18→08:50)
[2024-01-27] MEDS: Ipratropium/Albuterol Sulfate 3 ML AMPUL.NEB INHALATION ×3 (07:11→19:05)
[2024-01-27] MEDS: MethylPREDNISolone 125 MG/2 ML Vial 60 MG IV (08:28)
[2024-01-27] MEDS: Pramipexole Di-HCl 0.5 MG Tablet PO ×2 (08:28→20:12)
[2024-01-27] MEDS: Ascorbic Acid 500 MG Tablet 1000 MG PO ×2 (08:28→16:24)
[2024-01-27] MEDS: Lactobacillis Acidophilus 2 CAP PO ×2 (08:28→20:11)
[2024-01-27] MEDS: Zinc Sulfate 50 mg zinc (220 mg) ORAL capsule PO (08:28)
[2024-01-27] MEDS: Heparin Injection (Vial) 5,000 UNIT/ML VIAL 5000 UNIT SC ×2 (08:28→20:10)
[2024-01-27] MEDS: Cholecalciferol (Vit D3) 125 MCG CAPSULE (5,000 UNITS) PO (08:28)
--- NOTE | 2024-01-27 08:29 | PN.HOSP_ITS ---
Reason for Visit Reason for Visit: Shortness of breath/cough Subjective Subjective Mr. Johnson is a 78-year-old white male who presented to the emergency department [facility] on 01/26/2024 due to worsening shortness of breath and cough. He does have a history of asthma/COPD with overlap syndrome and chronic hypoxic respiratory failure on 3 to 4 L of baseline during the day and 5 L nasal cannula at night. He also has a remote history of lung cancer status post right upper lobe resection with adjuvant chemo and radiation. As an outpatient he was recently diagnosed with bilateral pneumonia and treated with Levaquin for 7 days as well as a prednisone taper by his primary care physician. Prednisone taper finished 2 days ago and his antibiotic have been completed for about 4 days now. Patient reported that he initially felt better but then the day prior to presentation as the day progressed his cough returned and this was followed by dyspnea on exertion that progressed to shortness of breath at rest. He tried to use his maintenance and rescue inhalers at home but they are not effective so elected to come to the emergency department for treatment. His cough is nonproductive and he reported some fevers but no chills. He denied chest pain. Vital signs on presentation showed temperature of 98.6, heart rate 100, blood pressure was 137/94, respiratory was 24 and oxygen saturation was 93% on 3 L nasal cannula. CBC showed leukocytosis with a white count of 12.9 and a left shift having an 82.6% neutrophilia. His hemoglobin is elevated at 16.9. Chemistry panel showed normal electrolytes with a slightly elevated serum creatinine from baseline at 2.10 (baseline 1.7-1.9). His troponin was 15. Chest x-ray showed significant interval worsening throughout the right hemithorax with diffuse increased density and a right effusion that appeared to be worsening with significant volume loss as well as interstitial thickening of the left midlung in the left base. CT of the chest was obtained and demonstrated postsurgical changes on the right with post lobectomy volume loss, extensive consolidation in the right lung with atelectasis and volume loss and suspected bronchial occlusion of the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 intermedius by either soft tissue or possibly mucous plugging but endobronchial mass cannot be excluded, small locules of air in atelectatic lung that appear to be consistent with air bronchograms and subsegmental consolidation of the left upper lobe. There are also a few small nodules in the left lung as well as mediastinal lymphadenopathy. He was admitted to medical floor and placed on broad-spectrum antibiotics with vancomycin and Zosyn. Patient reports that he had not been on oxygen up until about 4 to 6 weeks ago and since then has progressively gotten worse requiring more oxygen. Was treated as noted above with Levaquin and states he completed the whole course as well as the prednisone taper. He states he felt a little bit better but never completely resolved. He is having pleuritic sounding chest pain associated with intense coughing but the cough is nonproductive. I discussed the case with Dr. Pablo Vega who agreed to do a bronchoscopy which will be performed tomorrow. Objective Data Objective Data Vital Signs: Vital Signs Temp Pulse Resp BP Pulse Ox O2 Del Method O2 Flow Rate 98.0 F 103 H 18 131/92 H 94 Nasal Cannula 3 01/27/24 05:37 01/27/24 07:13 01/27/24 07:13 01/27/24 05:37 01/27/24 08:25 01/27/24 08:25 01/27/24 08:25 Oxygen Flow Rate (L/min) 3 Oxygen Delivery Method Nasal Cannula Weight: 107.955 kg Body Mass Index (BMI) 30.5 Intake & Output: Intake and Output for Last 24 Hours 01/25/24 01/26/24 01/27/24 23:59 23:59 23:59 Intake Total 911.25 / 911.25 780 / 780 Balance 911.25 / 911.25 780 / 780 Lab / Micro Data 01/26/24 19:29 01/26/24 19:29 Labs: Laboratory Results - last 24 hr 01/26/24 19:29: WBC 12.9 H, RBC 5.81, Hgb 16.9 H, Hct 53.3, MCV 91.7, MCH 29.1, MCHC 31.7 L, RDW Std Deviation 48.3 H, RDW Coeff of Crystal 14.4, Plt Count 202, MPV 10.1, Immature Gran % (Auto) 4.200 H, Neut % (Auto) 82.6 H, Lymph % (Auto) 6.4 L , [place] % (Auto) 6.0, Eos % (Auto) 0.5, Baso % (Auto) 0.3, Absolute Neuts (auto) 10.7 H, Absolute Lymphs (auto) 0.82 L, Nucleated RBC % 0, Differential Comment SCANNED, Sodium 137, Potassium 4.1, Chloride 103, Carbon Dioxide 30.0, Anion Gap 4 L, BUN 26 H, Creatinine 2.10 H, Estim Creat Clear Calc 37.71, Est GFR (MDRD) Af Amer 40 L, Est GFR (MDRD) Non-Af 33 L, BUN/Creatinine Ratio 12.4, Glucose 109 H, Calcium 8.5, Troponin I High Sens 15 Radiography Diagnostic Testing: Radiology Impression Chest X-Ray 01/26/24 19:20 IMPRESSION: 1. Significant interval worsening throughout the RIGHT hemithorax with diffuse increased density, RIGHT effusion appears to be worsened. Significant volume loss noted. 2. Persistent interstitial thickening in the LEFT midlung, and at the LEFT lung base. 3. No congestive failure. Electronically Signed: Jaxon Conte MD at 20:03 EDT , Chest CT 01/27/24 00:56 IMPRESSION: 1. Postsurgical changes on the right postlobectomy with volume loss. Extensive consolidation in the right lung with atelectasis and volume loss. Suspect bronchial occlusion of the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 intermedius by either soft tissue or possibly mucous plugging. Correlate surgical history regarding which lobe resected. Cannot exclude endobronchial mass. 2. Small locules of air within the atelectatic lung presumed air bronchograms but extrapleural air bronchopleural fistula is difficult to exclude. 3. Subsegmental consolidation in the left upper lobe possibly pneumonia and/or scarring, central mass not excluded. 4. A few small nodules in the left lung metastatic disease not excluded. Mediastinal adenopathy. Electronically Signed: Karina Cervantes MD at 3:02 EDT , Lumbar Spine CT 01/27/24 00:56 IMPRESSION: Postsurgical changes and surgical hardware. Degenerative changes most pronounced at L2-3 with endplate irregularity. Electronically Signed: Karina Cervantes MD at 3:14 EDT , Physical Exam Const alert, oriented x3, no apparent distress and well nourished; Negative for average body habitus or healthy appearing Constitutional Narrative: Obese, older, white male, lying in bed, family at bedside, appears chronically ill but not acutely ill and currently appears comfortable and nontoxic HEENT head/scalp atraumatic and moist oral mucous membranes HEENT Narrative: No thrush, dentures in place, Mallampati 3 Head and Scalp: normocephalic Eyes PERRL, EOMs intact bilaterally and conjunctivae normal Neck no lymphadenopathy and supple Neck Narrative: Trachea midline, no thyroid enlargement Resp normal respiratory effort, no retractions, no use of accessory muscles and No clear to auscultation bilaterally Resp Narrative: Coarse lung sounds throughout with decreased aeration in the right base that sounds quite considerably compared to the rest of his lung allison Auscultation: Negative for rales, rhonchi or wheezes Cardio regular rate, regular rhythm, S1 normal heart sound, S2 normal heart sound, no murmurs, no rub, no gallops and no clicks GI normal to inspection, nondistended, normoactive bowel sounds, soft to palpation and non-tender Extremity Extremity Narrative: Trace bilateral lower extremity edema, no cyanosis or clubbing Neuro oriented x3, moves all extremities and no focal motor deficits Speech: speech normal Psych affect normal Psych Narrative: Very pleasant, interacts appropriately, calm Assessment & Plan Assessment/Plan (1) Postobstructive pneumonia: (2) Elevated serum creatinine: (3) Leukocytosis: PLAN: Plan Right lower lobe postobstructive pneumonia -Suspect related to postobstructive pneumonia -Completed outpatient course of Levaquin and prednisone taper but still symptomatic -Continue vancomycin and Zosyn -Plan for bronchoscopy tomorrow -patient n.p.o. after midnight -Add incentive spirometry -Add Acapella -add Mucinex 1200 p.o. twice daily -Discontinue Solu-Medrol -Continue aggressive pulmonary toilet -Pulmonary medicine following-appreciate input, discussed with Dr. Vega Acute hypoxia chronic hypoxic respiratory failure secondary to COPD/lung cancer (type unknown) -Over the last 6 weeks or so patient has been requiring 3 L while at rest and 4 L with exertion -As of late he has had to increase his oxygen at rest and with exertion -Admits to needing 5 L at night for treatment of his sleep apnea -Treatment as noted above for acuity next-plan for bronchoscopy tomorrow -Will need continued outpatient follow-up Elevated serum creatinine on CKD stage IIIb -Very mild elevation -Will continue to monitor -Avoid nephrotoxins -Baseline seems to run between 1.5 and 1.9 -Serum creatinine presentation was 2.1 -Repeat BMP in a.m. Lung cancer -Type unknown -Follows with Dr. Noble -There was concern recently for recurrence -Will update oncology after bronchoscopy -Bronchoscopy tomorrow and will obtain biopsies if able -Continued ongoing outpatient follow-up with oncology and primary sr. logistics analyst, Dr. Margarita Vega at [facility] Essential hypertension/hyperlipidemia -Patient takes no chronic medications for blood pressure at home -As needed hydralazine available -Patient is not on a statin regularly -Recommend ongoing outpatient follow-up History of PE -Remote -no longer anticoagulated GERD -Continue home PPI Hypogonadism -Restart testosterone at discharge Restless leg syndrome -Continue home Mirapex History of gout -Continue home febuxostat History of renal cell carcinoma status post nephrectomy/history of bladder cancer -Chronic and stable LUIS CARLOS -Patient is noncompliant with CPAP as he does not tolerate -Continue nocturnal supplemental oxygen at 5 L which is his baseline while sleeping Remote history of tobacco abuse -Quit smoking in 1989 Obesity -BMI is 30.6 -Complicates treatment, prognosis, outcomes DVT prophylaxis -Continue heparin SQ twice daily CODE STATUS -Not documented--> will need to clarify Charges/Coding Visit Charges Inpatient E&M: 91938 Subs Hosp L3
--- NOTE | 2024-01-27 08:29 | EX.PCM.CONCC ---
Assessment & Plan Assessment/Plan (1) Chronic hypoxemic respiratory failure: (2) Pneumonia: QUALIFIERS: Pneumonia type: due to unspecified organism Laterality: right Lung location: unspecified part of lung Qualified Code(s): J18.9 - Pneumonia, unspecified organism PLAN: Plan RECOMMENDATIONS: 1. Unclear need for additional antimicrobials. 2. Continue bronchodilator therapy. 3. Obtain F chest imaging studies for comparison. 4. Aggressive bronchopulmonary hygiene. 5. Mobilize patient as tolerated. IMPRESSIONS: 1. Pneumonia/abnormal chest imaging/chronic hypoxemic respiratory failure The patient presented to the hospital with cough and shortness of breath, having recently been treated on an outpatient basis with antimicrobials for pneumonia with 7 days of Levaquin and prednisone taper. The patient has a known history of asthma/COPD overlap syndrome and is currently followed by Dr. Margarita Vega of pulmonary medicine at [facility]. He does have a remote history of non-small cell lung cancer, which in May 2021, was noted to be causing extrinsic compression of the bronchus intermedius. The patient was managed by Dr. Noble at [facility]. The patient's presenting chest CT demonstrated significant airspace disease throughout the right hemithorax with associated volume loss, which could be related to atelectasis. An additional 7 mm nodular opacity was noted in the left lower lobe. Apparently, the patient had recent chest imaging completed through [facility], but I do not have access to these records. It is certainly plausible that the patient has pre-existing luminal narrowing of the bronchus intermedius, which may have progressed or the patient may be experiencing some mucous plugging causing the findings noted on CT imaging. Regardless, the patient is afebrile and is maintaining saturations on his baseline oxygen requirement. Therefore, it is not entirely clear that the patient needs to be continued on antimicrobials at this time. We are awaiting the patient's last CT scan from [facility] to be forwarded to us for review. In the interim, I would encourage aggressive bronchopulmonary hygiene and continue scheduled bronchodilators. This note was generated with [employer] dictation software. It may contain incorrect words, spelling, and punctuation that were not noted in checking the note before signing. HPI Consult Data Date of Consult: 01/27/24 HPI Narrative Reason for Consultation: Pneumonia HPI Narrative: The patient is a 78-year-old male, with a history as outlined below, who presented to the emergency department on January 25 with shortness of breath and cough. I last saw the patient in the pulmonary medicine clinic in June 2021, but he has never followed up since that time. The patient initially presented to our office for the evaluation of a chronic cough. He has a documented history of obstructive sleep apnea, having been prescribed nocturnal BiPAP with a pressure support of 10/6 centimeters of water. He also presented with a history of COPD with his last PFTs demonstrating a mild obstructive ventilatory impairment. Lastly, the patient does have a history of non-small cell lung cancer for which he underwent lobectomy and chemotherapy. In May 2021, the patient underwent bronchoscopy which revealed extrinsic compression in the bronchus intermedius. EBUS TBNA was performed at lymph node station 7. Pathology was positive for adenocarcinoma. The patient was subsequently placed on combination chemotherapy and immunotherapy. He is currently being followed by Dr. Noble at [facility]. The patient reported that he utilizes baseline supplemental oxygen at 3 to 4 L/min throughout the day. The patient recently completed a 1 week course of Levaquin and a prednisone taper, prescribed by his PCP. On presentation to the emergency department, the patient was documented to be afebrile and hemodynamically stable. Laboratory evaluation revealed a white blood cell count of 13,000. Chemistry profile was notable for a creatinine of 2.1. CT chest revealed significant airspace disease throughout the right hemithorax along with volume loss. The patient was subsequently restarted on antibiotics and admitted to the hospital for further management. [facility] Medical History Wears glasses Cancer Alcohol use History of steroid therapy Walker as ambulation aid Arthritis Gout Restless legs TIA (transient ischemic attack) Gastric reflux Sleep apnea Former smoker History of edema Cardiology follow-up encounter History of echocardiogram History of stress test History of irregular heartbeat Lung cancer Encounter for screening for COVID-19 Hypogonadism Hyperlipidemia Chronic kidney disease, stage 3 Chronic gout Renal cancer Bladder cancer Pulmonary embolism CKD (chronic kidney disease) stage 3, GFR 30-59 ml/min Renal cell carcinoma Bladder carcinoma Chronic back pain GERD (gastroesophageal reflux disease) LUIS CARLOS (obstructive sleep apnea) COPD (chronic obstructive pulmonary disease) Home Medications ?Medication ?Instructions ?Recorded ?Last Taken ?Type albuterol sulfate 90 mcg/actuation 1 - 2 puff inhalation Q4H PRN PRN 10/20/13 10/26/13 History aerosol inhaler Wheezing 1 - 2 PUFF pramipexole 0.5 mg tablet 0.5 mg PO BID RLS 10/05/16 Unknown History pantoprazole 40 mg tablet,delayed 40 mg PO QHS 07/17/19 Unknown History release acetaminophen 325 mg tablet 650 mg (2 x 325 mg) PO Q4H PRN PRN 07/24/19 Unknown Rx Pain Score 1-5/10 doxepin 25 mg capsule 100 mg PO QHS SLEEP 11/05/20 Unknown History budesonide 0.5 mg/2 mL suspension 0.5 mg (2 mL) inhalation BID #120 05/02/21 Unknown Rx for nebulization mL febuxostat 40 mg tablet (Uloric) 40 mg PO QHS GOUT 06/21/21 Unknown History prednisone 5 mg tablet 7.5 mg PO DAILY 01/14/23 Unknown History vitamin [id number] B1 1,000 1 ml IM .Q2W 01/14/23 Unknown History mcg-100 mg/mL injection solution albuterol sulfate 2.5 mg/3 mL 2.5 mg (3 mL) inhalation Q4H PRN 08/09/23 Unknown Rx (0.083 %) solution for nebulization #25 vials budesonide 160 mcg-glycopyr 9 2 inh inhalation BID 01/26/24 Unknown History mcg-formot 4.8 mcg/actuation HFA inhaler (Breztri Aerosphere) testosterone cypionate 100 mg/mL 100 mg IM .twice monthly 01/26/24 Unknown History intramuscular oil (Depo-Testosterone) Allergy/AdvReac Type Severity Reaction Status Date / Time No Known Allergies Allergy Verified 01/26/24 19:00 Family History Father Malignant neoplasm of lung Mother Hypertension Surgical History History of cataract extraction History of colonoscopy History of thoracotomy History of tonsillectomy H/O kidney removal History of appendectomy History of back surgery History of bladder surgery Social History Smoking Status: Former smoker quit date: 08/05/89 pack-years: 38 ROS ROS Narrative 10 systems were reviewed with pertinent positives as noted in the HPI above. Physical Exam Const alert and no apparent distress Constitutional Narrative: Sitting in bedside recliner eating breakfast. General Appearance: cooperative HEENT normocephalic and head/scalp atraumatic Eyes PERRL, EOMs intact bilaterally and conjunctivae normal Neck supple General: trachea midline Chest inspection of chest normal Resp normal respiratory effort Auscultation: diminished lung sounds Cardio regular rate and regular rhythm GI normal to inspection, nondistended, normoactive bowel sounds Extremity no clubbing, cyanosis or edema Skin no rashes or lesions noted Neuro CN's II-XII intact bilaterally, moves all extremities and no focal motor deficits Psych cooperative and affect normal Lab / Micro Data 01/26/24 19:29 01/26/24 19:29 Labs: Laboratory Results - last 24 hr 01/26/24 19:29: WBC 12.9 H, RBC 5.81, Hgb 16.9 H, Hct 53.3, MCV 91.7, MCH 29.1, MCHC 31.7 L, RDW Std Deviation 48.3 H, RDW Coeff of Crystal 14.4, Plt Count 202, MPV 10.1, Immature Gran % (Auto) 4.200 H, Neut % (Auto) 82.6 H, Lymph % (Auto) 6.4 L, [place] % (Auto) 6.0, Eos % (Auto) 0.5, Baso % (Auto) 0.3, Absolute Neuts (auto) 10.7 H, Absolute Lymphs (auto) 0.82 L, Nucleated RBC % 0, Differential Comment SCANNED, Sodium 137, Potassium 4.1, Chloride 103, Carbon Dioxide 30.0, Anion Gap 4 L, BUN 26 H, Creatinine 2.10 H, Estim Creat Clear Calc 37.71, Est GFR (MDRD) Af Amer 40 L, Est GFR (MDRD) Non-Af 33 L, BUN/Creatinine Ratio 12.4, Glucose 109 H, Calcium 8.5, Troponin I High Sens 15 Imaging Radiology Impression Chest X-Ray 01/26/24 19:20 IMPRESSION: 1. Significant interval worsening throughout the RIGHT hemithorax with diffuse increased density, RIGHT effusion appears to be worsened. Significant volume loss noted. 2. Persistent interstitial thickening in the LEFT midlung, and at the LEFT lung base. 3. No congestive failure. Electronically Signed: Jaxon Conte MD at 20:03 EDT , Chest CT 01/27/24 00:56 IMPRESSION: 1. Postsurgical changes on the right postlobectomy with volume loss. Extensive consolidation in the right lung with atelectasis and volume loss. Suspect bronchial occlusion of the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 intermedius by either soft tissue or possibly mucous plugging. Correlate surgical history regarding which lobe resected. Cannot exclude endobronchial mass. 2. Small locules of air within the atelectatic lung presumed air bronchograms but extrapleural air bronchopleural fistula is difficult to exclude. 3. Subsegmental consolidation in the left upper lobe possibly pneumonia and/or scarring, central mass not excluded. 4. A few small nodules in the left lung metastatic disease not excluded. Mediastinal adenopathy. Electronically Signed: Karina Cervantes MD at 3:02 EDT , Lumbar Spine CT 01/27/24 00:56 IMPRESSION: Postsurgical changes and surgical hardware. Degenerative changes most pronounced at L2-3 with endplate irregularity. Electronically Signed: Karina Cervantes MD at 3:14 EDT , Charges/Coding Visit Charges Inpatient E&M: 40199 Init Hosp L3
[2024-01-27] MEDS: guaiFENesin 1,200 MG Tablet 1200 MG PO ×2 (08:50→20:11)
--- NOTE | 2024-01-27 12:30 | CASEMGMT ---
Addendum entered by Selin Thornton 01/27/24 14:15: RAFFI BRODERICK discussed HHC options with pt, offered to provide a list with local in-network providers, pt denied wanting list and would like to go with [facility]. Called Sandra at [facility] to see if they will accept. Sandra will call back to notify RAFFI BRODERICK if willing to accept. Original Note: RN DAVIE Assessment: Face to Face with pt for initial transition planning/care coordination assessment. RN DAVIE introduced self and role at [facility], pt voices understanding and consents to assessment. Pt sitting up in bed, in no distress. sitting at bedside, pt agreeable to answering questions with in room. Pt is A&O x4 and answers all questions appropriately at this time. Care providers, pharmacy, and demographics verified/updated. Admitting Dx: Right PNA AE COPD Hx of Lung Cancer PCP: Ramesh Specialists: Real - oncologisti, Gary - instrumentation engineering technician, Earle - Egg Separator, Chester - nephrology Preferred Pharmacy: [facility] Insurance: Medicare, [employer] Prescription Benefit: yes LNOK: Lizette - Living Arrangements: Pt lives with in ranch home with 4 steps to enter. Pt states prior to hospitalization he was I with ADLs and IADLs. Transportation: Pt drives self and denies concerns with transportation. DME: Pt states has the following items but does not use any of them: Walker, cane, shower bench, high rise commode. Pt gets O2 needs through [employer]. HHC/SNF: Denies Hx of. Pt states no concerns with going home at time of dc. Pt states no further concerns/needs. CM to follow. Advised pt to ask CM if any further question/concerns/needs arise, voices understanding. Pt Goal: Plan: Lana NUGENT CM
--- NOTE | 2024-01-27 12:30 | CASEMGMT ---
Addendum entered by Selin Thornton 01/30/24 12:50: Addendum entered by Selin Thornton 01/27/24 12:45: RAFFI BRODERICK discussed HHC options with pt, offered to provide a list with local in-network providers, pt denied wanting list and would like to go with [facility]. Called Sandra at [facility] to see if they will accept. Sandra will call back to notify RAFFI BRODERICK if willing to accept. Original Note: Original Note: RAFFI BRODERICK Assessment: Face to Face with pt for initial transition planning/care coordination assessment. RAFFI BRODERICK introduced self and role at [facility], pt voices understanding and consents to assessment. Pt sitting up in bed, in no distress. sitting at bedside, pt agreeable to answering questions with in room. Pt is A&O x4 and answers all questions appropriately at this time. Care providers, pharmacy, and demographics verified/updated. Admitting Dx: Right PNA AE COPD Hx of Lung Cancer PCP: Ramesh Specialists: Real - oncologistiGary - leak operator paraffin plant, Earle - Assistant Wrestling Coach, Chester - nephrology Preferred Pharmacy: [facility] Insurance: Medicare, [employer] Prescription Benefit: yes LNOK: Lizette - Living Arrangements: Pt lives with in ranch home with 4 steps to enter. Pt states prior to hospitalization he was I with ADLs and IADLs. Transportation: Pt drives self and denies concerns with transportation. DME: Pt states has the following items but does not use any of them: Walker, cane, shower bench, high rise commode. Pt gets O2 needs through [employer]. HHC/SNF: Denies Hx of. Pt states no concerns with going home at time of dc. Pt states no further concerns/needs. CM to follow. Advised pt to ask CM if any further question/concerns/needs arise, voices understanding. Pt Goal: Home Plan: Home, will follow plan of care. Lana NUGENT CM
--- NOTE | 2024-01-27 14:59 | CASEMGMT ---
Received tc back from Sandra at [facility], they are able to accept pt if an appt is set up prior to [facility] starting.
--- NOTE | 2024-01-27 15:40 | CASEMGMT ---
RN CM into pt room, informed pt [facility] accepted referral. Pt agreeable to go see Dr. Guillory upon DC.
--- NOTE | 2024-01-27 15:52 | CASEMGMT ---
RAFFI BRODERICK called Dr. Guillory's office, medical receptionist assistant informed RAFFI BRODERICK the office is not able to see patient same day as DC, pt will have to wait 24 hours before coming in for appointment. Will call back once pt has DC orders in.
[2024-01-27] MEDS: Pantoprazole Sodium 40 MG Tablet PO (20:11)
[2024-01-27] MEDS: DOXEPIN HCL 50 MG CAPSULE 100 MG PO (20:11)
[2024-01-27] MEDS: Febuxostat 40 MG TABLET PO (20:12)
[2024-01-27] MEDS: Vancomycin HCl 1,500 MG in 0.9% Normal Saline (500mL Bag) 500 ML 250 MG IV (21:50)
[2024-01-28] VITALS (14 sets, daily range): BP systolic 111–136; BP diastolic 74–92; PULSE 83–99; RESP 16–20; TEMP 36.2–36.6; O2SAT 88–97
--- NOTE | 2024-01-28 | FLU_PTH ---
PATIENT: CHECO GRAY LOC: MS3 U#:[id number] AGE/SX: 78/M [place] [facility] [place]: Dr. Alysia Briggs DO : 1945 BED: 1 DIS: 01/28/2024 SPEC #: [id number] RECD: 01/28/24 12:17 STATUS: SOUT REQ #: [id number] FARZANA: 01/28/24 00:[address]: Alysia Briggs DEPT: CYTOLOGY RECD BY: Concetta Perales ENTERED: 01/28/24 12:18 SP TYPE: Fluid OTHR DR: MD Dr. Carlos Aguilera MD Dr. Derek Brown, DO Dr. David de Lorenzo, DO Dr. Edward Matheis, MD Dr. Gautam Baskaran, MD Dr. Yordanos Habtegebriel, MD Dr. Hemant Dand, MD Dr. Jose Ochoa, MD Dr. Kimber Foust, MD Dr. Lamia Aljundi, MD Dr. Pritam Ghosh, MD Dr. Pavan Irukulla, MD Dr. Saad Farooqi, MD Dr. Tai Chi Kwok, MD Dr. Vikram Anand, MD Dr. William Haden, MD Tissues: Bronchus, NOS Procedures: Special Stain Group II Surgery Specimen Level IV Cytospin Fluid HEADER OPERATION: Bronchoscopy PRE-OP DIAGNOSIS: Abnormal chest CT TISSUE SUBMITTED: Bronchial washing DIAGNOSIS CYTOLOGY Bronchial washing fluid (cytospin and cellblock): Negative for malignant cells. See comment. ARLEY/ 01/29/2024 COMMENT Special stains for acid fast bacilli and fungi are negative for organisms; matched controls are appropriate. Please also correlate with additional corresponding specimen [id number] and right mainstem bronchial biopsy with diagnosis of fragments of benign bronchial mucosa and mucous, negative for malignancy. CYTOLOGY STUDY Slides are reviewed. CYTOLOGY GROSS Received is 30 ml of red- cloudy fluid labeled with the patient's name and and designated per the requisition as Bronchial washing. Submitted for cytology preparation including cell block. Mr 01/28/2024 TC:5 CPT: 03694,00041,81528t1
--- NOTE | 2024-01-28 | LUNG_PTH ---
PATIENT: CHECO GRAY LOC: MS3 U#:[id number] AGE/SX: 78/M ROOM: [facility] [place] RE01/26/[address]: Dr. Alysia Briggs DO : 1945 BED: 1 DIS: 01/28/2024 SPEC #: [id number] RECD: 01/28/24 12:18 STATUS: SMITH REQ #: [id number] FARZANA: 01/28/24 00:[address]: Alysia Briggs DEPT: SURGICAL PATHOLOGY RECD BY: Concetta Perales ENTERED: 01/28/24 12:19 SP TYPE: LUNG BX OTHR DR: MD Dr. Carlos Aguilera MD Dr. Derek Brown, DO Dr. David de Lorenzo, DO Dr. Edward Matheis, MD Dr. Gautam Baskaran, MD Dr. Yordanos Habtegebriel, MD Dr. Hemant Dand, MD Dr. Jose Ochoa, MD Dr. Kimber Foust, MD Dr. Lamia Aljundi, MD Dr. Pritam Ghosh, MD Dr. Pavan Irukulla, MD Dr. Saad Farooqi, MD Dr. Tai Chi Kwok, MD Dr. Vikram Anand, MD Dr. William Haden, MD Tissues: Lung, NOS Procedures: Surgery Specimen Level IV HEADER OPERATION: Bronchoscopy PRE-OP DIAGNOSIS: Abnormal chest CT TISSUE SUBMITTED: Bronchial biopsy- Right mainstem MICROSCOPIC DIAGNOSIS Right mainstem bronchus, biopsy: Fragments of benign bronchial mucosal tissue and mucous, negative for malignancy. ARLEY/ 01/29/2024 COMMENT Prominent elastosis of sub-bronchial tissue is also noted. Correlation with clinical, radiologic findings and appropriate follow up are necessary. Case has been reviewed in consultation with Dr. Garrison who concurs with the above diagnosis. IDC:ARLEY MICROSCOPIC DESCRIPTION Slides are reviewed. GROSS DESCRIPTION Received in fixative is one container labeled with the patient's name and designated Bronchial biopsy right mainstem. The specimen consists of multiple irregular fragments of light kay soft tissue that in aggregate measure 0.4 x 0.1 x 0.1 cm. The specimen is totally submitted in one cassette. Rea 01/28/2024 TC:5 CPT:27430
[2024-01-28] MEDS: Piperacil/Tazobactam 3.375 GM in 0.9% Normal Saline (50mL MB+) 50 ML IV (07:09)
[2024-01-28] MEDS: Ipratropium/Albuterol Sulfate 3 ML AMPUL.NEB INHALATION ×2 (07:15→11:59)
[2024-01-28 08:01] LABS: Anion Gap 6 (5-15); BUN 30 mg/dL (7-18); BUN/Creat Ratio 16.5 RATIO (10-20); Calcium,Total 8.3 mg/dL (8.5-10.1); Chloride 106 mmol/L (98-107); Creatinine, Serum 1.82 mg/dL (0.70-1.30); EST Glomerular Filtration Rate 39 mL/min (>60); Est Glom Filt Rate - Afr Amer 47 mL/min (>60); Estimated Creatinine Clearance 43.77 ml/min; Glucose 114 mg/dL (74-106); Sodium Level 140 mmol/L (136-145)
--- NOTE | 2024-01-28 09:22 | PCM.PN.INT ---
Assessment & Plan Assessment/Plan (1) Chronic hypoxemic respiratory failure: (2) Pneumonia: QUALIFIERS: Pneumonia type: due to unspecified organism Laterality: right Lung location: unspecified part of lung Qualified Code(s): J18.9 - Pneumonia, unspecified organism PLAN: Plan RECOMMENDATIONS: 1. Unclear need for additional antimicrobials. 2. Continue bronchodilator therapy. 3. Continue supplemental oxygen. 4. Perform walking oximetry study prior to consideration for discharge home. 5. Outpatient follow-up with primary buffing wheel former machine after discharge. IMPRESSIONS: 1. Pneumonia/abnormal chest imaging/chronic hypoxemic respiratory failure The patient presented to the hospital with cough and shortness of breath, having recently been treated on an outpatient basis with antimicrobials for pneumonia with 7 days of Levaquin and prednisone taper. The patient has a known history of asthma/COPD overlap syndrome and is currently followed by Dr. Margarita Vega of pulmonary medicine at [facility]. He does have a remote history of non-small cell lung cancer, which in May 2021, was noted to be causing extrinsic compression of the bronchus intermedius. The patient was managed by Dr. Noble at [facility]. The patient's presenting chest CT demonstrated significant airspace disease throughout the right hemithorax with associated volume loss, which could be related to atelectasis. An additional 7 mm nodular opacity was noted in the left lower lobe. Given the aforementioned findings, the patient underwent airway evaluation via bronchoscopy on January 27, which demonstrated extrinsic compression involving the right mainstem/bronchus intermedius along with an endobronchial lesion, which was biopsied. These findings are likely the reason for his presenting symptoms along with radiographic evidence of distal airway collapse. He will be at high risk for further episodes of postobstructive pneumonia. I did discuss these findings with the patient's primary oncologist, who indicated that he would coordinate with the patient's primary buffing wheel former machine, Dr. Margarita Vega, to help facilitate the patient being evaluated by interventional pulmonary at [facility]. This note was generated with [employer] dictation software. It may contain incorrect words, spelling, and punctuation that were not noted in checking the note before signing. Subjective Subjective The patient was seen and examined at the bedside this morning. Events from the last 24 hours have been reviewed. The patient is currently afebrile, hemodynamically stable and maintaining appropriate oxygen saturations on 5 L/min via nasal cannula. The patient continues to have a cough, largely unchanged from previous. Objective Data Objective Data The patient's most recent lab work, culture data and imaging studies have all been personally reviewed. Strep and urine Legionella antigens were negative. COVID, influenza and RSV PCR's were negative. Vital Signs: Vital Signs Temp Pulse Resp BP Pulse Ox O2 Del Method O2 Flow Rate 97.5 F L 90 18 136/92 H 94 Nasal Cannula 5 01/28/24 08:36 01/28/24 08:36 01/28/24 08:36 01/28/24 08:36 01/28/24 08:37 01/28/24 08:37 01/28/24 08:37 Oxygen Flow Rate (L/min) [ 5 AMBULATING with Oxygen #3] Oxygen Flow Rate (L/min) [ 4 AMBULATING with Oxygen #2] Oxygen Flow Rate (L/min) [ 3 AMBULATING with Oxygen #1] Oxygen Flow Rate (L/min) [At 3 REST with Oxygen] Oxygen Flow Rate (L/min) 5 Oxygen Delivery Method Nasal Cannula Weight: 238 lb 1.588 oz Body Mass Index (BMI) 30.5 Intake & Output: Intake and Output for Last 24 Hours 01/26/24 01/27/24 01/28/24 23:59 23:59 23:59 Intake Total 911.25 / 911.25 1410 / 1410 50 / 50 Balance 911.25 / 911.25 1410 / 1410 50 / 50 Lab / Micro Data Attestation: I reviewed the patient's lab results. 01/28/24 06:19 01/28/24 06:19 Labs: Laboratory Results - last 24 hr 01/28/24 06:19: Sodium 140, Potassium 4.0, Chloride 106, Carbon Dioxide 28.0, Anion Gap 6, BUN 30 H, Creatinine 1.82 H, Estim Creat Clear Calc 43.77, Est GFR (MDRD) Af Amer 47 L, Est GFR (MDRD) Non-Af 39 L, BUN/Creatinine Ratio 16.5, Glucose 114 H, Calcium 8.3 L Micro: Microbiology 01/27/24 11:07 Urine, Clean Catch Legionella Antigen - Final 01/27/24 11:07 Urine, Clean Catch Streptococcus pneumoniae Antigen (M - Final Physical Exam Const alert and no apparent distress Constitutional Narrative: Sitting in bedside recliner eating breakfast. General Appearance: cooperative HEENT normocephalic and head/scalp atraumatic Eyes PERRL, EOMs intact bilaterally and conjunctivae normal Neck supple General: trachea midline Chest inspection of chest normal Resp normal respiratory effort Auscultation: diminished lung sounds Cardio regular rate and regular rhythm GI normal to inspection, nondistended, normoactive bowel sounds Extremity no clubbing, cyanosis or edema Skin no rashes or lesions noted Neuro CN's II-XII intact bilaterally, moves all extremities and no focal motor deficits Psych cooperative and affect normal Charges/Coding Visit Charges Inpatient E&M: 52176 Subs Hosp L2
[2024-01-28 09:47] LABS: International Normalized Ratio 1.1; Prothrombin Time (Protime)PT. 13.8 SECONDS (11.7-14.9)
[2024-01-28 09:55] LABS: Absolute Neutrophil Count 15.7 X10^3/uL (2.0-7.7); Basophil# 0.04 X10^3/uL; Basophil% 0.2 % (0-1); Hematocrit 49.3 % (40-54); Hemoglobin 15.5 g/dL (13.0-16.5); Lymphocyte % 2.9 % (19-41); Mean Corp Hgb Conc 31.4 g/dL (32-36); Mean Corpuscular Hgb 29.2 pg (27.0-32.0); Mean Platelet Vol. 10.6 fl (6.2-12.0); Monocyte# 0.58 X10^3/uL; Monocyte% 3.4 % (0-10); NRBC Flagged by Analyzer 0 % (0-5); Neutrophil # 15.65 X10^3/uL (2.7-7.7); Neutrophil % 91.3 % (47-70); POSITIVE DIFFERENTIAL YES; Platelet Count 187 K/mm3 (150-450); RBC Distribution Width CV 14.3 % (11.6-14.6); White Blood Count 17.1 K/mm3 (4.4-11.0)
[2024-01-28] MEDS: 0.9% Normal Saline (1000mL) 1,000 ML 15 ML IV (10:04)
--- NOTE | 2024-01-28 10:13 | PRE.ANES_ITS ---
ASA Classification* ASA Classification ASA Classification: 3 Procedure Plan Procedural Plan:: Proceed w/ POC Assessment & Plan Anesthesia* Anesthesia Assessment Anesthesia Assessment: Discussed sedation and/or anesthesia options, risks, benefits, and alternatives with patient/parents/legal guardian/POA. Questions invited. The patient/parents/legal guardian/POA seems to understand and agrees to proceed with anesthesia plan. Reviewed the physical assessment, medical history, allergy history and patient home medications list prior to surgery/procedure/anesthetic and documented any changes. Performed airway and anesthesia risk assessments. Surgery Canceled Due to: Reason surgery canceled: Proceed w/ Anesthesia plan Anesthesia Type Anesthesia Type: MAC History Source History Obtained from:: Patient and Chart Pre-Assessment Diagnosis/Proposed Procedure Planned Operative Procedure(s): Bronchoscopy Anesthesia History Anesthesia History - cruise coordinator: Anesthesia History - cruise coordinator Hx Hospitalization No 01/14/23 14:12 Any Problems With Anesthesia No 01/14/23 14:12 Cholinesterase deficiency No 01/14/23 14:12 You/Your Family Experience No 01/14/23 14:12 fever (hyperthermia) with Relationship Recent Exposure to Contagious No 01/28/23 06:17 Disease Does patient have nerve No 01/14/23 14:12 stimulator Patient instructed to have device shut off --Does patient have Pacemaker or ICD? When Was Last Pacemaker Check QUESTION #4 FULL TEXT: You/Your Family Experience fever (hyperthermia) with Anesthesia Last Oral Intake Last Oral intake: Last Oral Intake NPO since Meds taken in AM with sips of water? Meds patient instructed to take am of surgery Any additional information?: Yes NPO since: 00:00 Meds taken in AM with sips of water?: No PONV PONV - cruise coordinator: PONV - cruise coordinator Female HX of Motion Sickness HX of N/V After Surgery Non-Smoker Duration of Surgery greater than 60 minutes Number of Risk Factors PONV Score Height & Weight Height & Weight: Anesthesia: Height & Weight Height 6 ft 2 in 01/27/24 12:38 Weight: 108 kg 01/27/24 12:38 Body Mass Index (BMI) 30.5 01/26/24 22:09 Respiratory Assessment Respiratory Assessment - cruise coordinator: Respiratory Tract Infection Hx - cruise coordinator Hx Respiratory Tract Infection No 01/14/23 14:12 STOP Sleep Apnea STOP Sleep Apnea - cruise coordinator: STOP Sleep Apnea - cruise coordinator Hx Hypertension No 01/26/24 22:09 Hx Sleep Apnea No 01/26/24 22:09 CPAP No: UNABLE TO USE 01/28/23 10:53 BIPAP No 01/14/23 14:12 Do you snore loudly (louder No 01/26/24 22:09 than talking or can be heard Do you often feel tired/ No 01/26/24 22:09 fatigued/ sleepy during daytime? Has anyone observed you stop No 01/26/24 22:09 breathing during sleep? STOP Results Negative 01/26/24 22:09 QUESTION #5 FULL TEXT : Do you snore loudly (louder than talking or can be heard through closed doors)? 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 Specify any problems Hx of Preganancy in last 3 N/A 01/26/24 22:09 Months Nurse Filling Out Transfusion LSMITH 01/26/24 22:09 & Questions: Date: 01/26/24 01/26/24 22:09 Time: 22:11 01/26/24 22:09 Patient unable to answer at this time (ie. confused, unrespo /Reproduction History /Reproductive History - cruise coordinator: /Reproductive Hx- cruise coordinator Hx Now Gestational Age (in weeks): EDC: Hx Hx Para Hx Section SAB Active Medications Active Medications: Current Medications Generic Name Dose Route Start Last Admin Trade Name Freq PRN Reason Stop Dose Admin Acetaminophen 650 mg 01/26/24 22:08 Acetaminophen 325 Mg Tablet PO Q6H PRN PRN Pain 1-5/10 Or Fever Albuterol Sulfate 2.5 mg 01/26/24 22:08 Albuterol 2.5 Mg/3 Ml Vial.Neb. INHALATION Q4H PRN PRN wheezing Albuterol/Ipratropium 3 ml 01/27/24 00:00 01/27/24 19:05 Ipratropium/Albuterol Sulfate 3 Ml Ampul.Neb INHALATION 3 ml Q6HWA.RT DARIELA Administration Ascorbic Acid 1,000 mg 01/27/24 08:00 01/28/24 07:33 Ascorbic Acid 500 Mg Tablet PO Not Given BIDCM DARIELA Cholecalciferol 125 mcg 01/27/24 10:00 01/28/24 07:34 Cholecalciferol (Vit D3) 125 Mcg Capsule (5,000 Units) PO Not Given DAILY DARIELA Doxepin HCl 100 mg 01/26/24 22:08 01/27/24 20:11 Doxepin Hcl 50 Mg Capsule PO 100 mg QHS DARIELA Administration Febuxostat 40 mg 01/26/24 22:08 01/27/24 20:12 Febuxostat 40 Mg Tablet PO 40 mg QHS DARIELA Administration Guaifenesin 1,200 mg 01/27/24 10:00 01/28/24 07:34 Guaifenesin 1,200 Mg Tablet PO Not Given BID DARIELA Heparin Sodium (Porcine) 5,000 unit 01/27/24 10:00 01/28/24 07:33 Heparin Injection (Vial) 5,000 Unit/Ml Vial SC Not Given Q12 DARIELA Vancomycin IV-PHARMACY TO DOSE 500 mls @ 250 mls/hr 01/26/24 22:08 1 each/ Sodium Chloride IV PRN PRN Rx to Dose Protocol Piperacillin Sod/Tazobactam 50 mls @ 12.5 mls/hr 01/27/24 06:00 01/28/24 07:09 Sod 3.375 gm/ Sodium Chloride IV 12.5 mls/hr Q8 DARIELA Administration Vancomycin HCl 1,500 mg/ 530 mls @ 250 mls/hr 01/27/24 21:30 01/27/24 23:58 Sodium Chloride IV Infused Q24H DARIELA Infusion Sodium Chloride 1,000 mls @ 15 mls/hr 01/28/24 10:05 01/28/24 10:04 IV 15 mls/hr .Q48H DARIELA Administration Morphine Sulfate 2 mg 01/26/24 22:08 Morphine 2 Mg/Ml Syringe IV Q4H PRN PRN Pain Score 6-10 Pantoprazole Sodium 40 mg 01/26/24 22:08 01/27/24 20:11 Pantoprazole Sodium 40 Mg Tablet PO 40 mg QHS DARIELA Administration Pramipexole Dihydrochloride 0.5 mg 01/26/24 22:08 01/28/24 07:34 Pramipexole Di-Hcl 0.5 Mg Tablet PO Not Given BID DARIELA Sodium Chloride 10 - 40 ml 01/26/24 22:14 01/27/24 08:50 0.9% Saline Lock 10 Ml Syringe IV 10 ml UD PRN Administration SALINE FLUSH Vancomycin Protocol 1 lab 01/28/24 19:00 Vancomycin Trough/Random Due MC 01/28/24 23:00 DAILY [facility] Anesthesia Focused Assessment* Temperature: 97.5 F Pulse Rate: 90 Blood Pressure: 136/92 Respiratory Rate: 18 Pulse Ox: 94 Oxygen Delivery Method: Nasal Cannula Oxygen Flow Rate (L/min): 5 Airway Assessment Mouth opens: >3 cm Mallampati Score: I Teeth Condition: Missing (All upper missing. multiple lower missing) and Upper (edentulous) Neck Range of motion (ROM): Full ROM Procedure Plan Procedural Plan:: Proceed w/ POC Focused Labs Anesthesia Preop lab: CBC WBC 12.9 K/mm3 (4.4-11.0) H 01/26/24 19:29 RBC 5.81 M/mm3 (4.6-6.2) 01/26/24 19:29 Hgb 16.9 g/dL (13.0-16.5) H 01/26/24 19:29 Hct 53.3 % (40-54) 01/26/24 19:29 Plt Count 202 K/mm3 (150-450) 01/26/24 19:29 CHEMISTRY Potassium 4.0 mmol/L (3.5-5.1) 01/28/24 06:19 Sodium 140 mmol/L (136-145) 01/28/24 06:19 Magnesium 2.1 mg/dL (1.6-2.6) 01/18/23 09:09 Phosphorus 2.3 mg/dL (2.5-4.9) L 11/28/23 14:32 BUN 30 mg/dL (7-18) H 01/28/24 06:19 Creatinine 1.82 mg/dL (0.70-1.30) H 01/28/24 06:19 Glucose 114 mg/dL (74-106) H 01/28/24 06:19 POC Glucose 153 mg/dL (74-106) H 01/28/23 06:03 TSH 3.49 uIU/mL (0.358-3.74) 10/14/23 11:35 COAG PT 13.8 SECONDS (11.7-14.9) 01/28/24 06:19 Review of Systems (Anesthesia) ROS Narrative System reviewed and no additional complaints, except as documented. [facility] Medical History Wears glasses Cancer Alcohol use History of steroid therapy Walker as ambulation aid Arthritis Gout Restless legs TIA (transient ischemic attack) Gastric reflux Sleep apnea Former smoker History of edema Cardiology follow-up encounter History of echocardiogram History of stress test History of irregular heartbeat Lung cancer Encounter for screening for COVID-19 Hypogonadism Hyperlipidemia Chronic kidney disease, stage 3 Chronic gout Renal cancer Bladder cancer Pulmonary embolism CKD (chronic kidney disease) stage 3, GFR 30-59 ml/min Renal cell carcinoma Bladder carcinoma Chronic back pain GERD (gastroesophageal reflux disease) LUIS CARLOS (obstructive sleep apnea) COPD (chronic obstructive pulmonary disease) Home Medications ?Medication ?Instructions ?Recorded ?Last Taken ?Type albuterol sulfate 90 mcg/actuation 1 - 2 puff inhalation Q4H PRN PRN 10/20/13 10/26/13 History aerosol inhaler Wheezing 1 - 2 PUFF pramipexole 0.5 mg tablet 0.5 mg PO BID RLS 10/05/16 Unknown History pantoprazole 40 mg tablet,delayed 40 mg PO QHS 07/17/19 Unknown History release acetaminophen 325 mg tablet 650 mg (2 x 325 mg) PO Q4H PRN PRN 07/24/19 Unknown Rx Pain Score 1-5/10 doxepin 25 mg capsule 100 mg PO QHS SLEEP 11/05/20 Unknown History budesonide 0.5 mg/2 mL suspension 0.5 mg (2 mL) inhalation BID #120 05/02/21 Unknown Rx for nebulization mL febuxostat 40 mg tablet (Uloric) 40 mg PO QHS GOUT 06/21/21 Unknown History prednisone 5 mg tablet 7.5 mg PO DAILY 01/14/23 Unknown History vitamin [id number] B1 1,000 1 ml IM .Q2W 01/14/23 Unknown History mcg-100 mg/mL injection solution albuterol sulfate 2.5 mg/3 mL 2.5 mg (3 mL) inhalation Q4H PRN 08/09/23 Unknown Rx (0.083 %) solution for nebulization #25 vials budesonide 160 mcg-glycopyr 9 2 inh inhalation BID 01/26/24 Unknown History mcg-formot 4.8 mcg/actuation HFA inhaler (Breztri Aerosphere) testosterone cypionate 100 mg/mL 100 mg IM .twice monthly 01/26/24 Unknown History intramuscular oil (Depo-Testosterone) Allergy/AdvReac Type Severity Reaction Status Date / Time No Known Allergies Allergy Verified 01/26/24 19:00 Family History Father Malignant neoplasm of lung Mother Hypertension Surgical History History of cataract extraction History of colonoscopy History of thoracotomy History of tonsillectomy H/O kidney removal History of appendectomy History of back surgery History of bladder surgery Social History Smoking Status: Former smoker quit date: 08/05/89 pack-years: 38
[2024-01-28] MEDS: Epinephrine (1 mg/ml) 1 MG/ML VIAL (10:59)
[2024-01-28] MEDS: 0.9% Normal Saline (Pres. free 10 ML Vial (10:59)
[2024-01-28] MEDS: Lidocaine 2% (5ml sdv) 5 ML VIAL.MPF (11:00)
[2024-01-28] MEDS: Lidocaine Jelly 2% 20 ML Syringe (URO-JET) 1 APPLIC (11:00)
--- NOTE | 2024-01-28 11:15 | PCM.POST.ANE ---
Anesthesia: Postop Eval I Current Vital Signs Temperature: 97.4 F Pulse Rate: 88 Blood Pressure: 122/77 Respiratory Rate: 18 Pulse Ox: 96 Oxygen Delivery Method: Simple Mask Oxygen Flow Rate (L/min): 6 Assessment Airway patent: Yes Spontaneous unlabored respirations: Yes Mental status: Awake nausea: No Vomiting: No Anesthesia Complication: Yes Anesthesia Complication Comment:: O2 sat <90% for most of case d/t LUIS CARLOS Fluid Hydration Crystalloid volume administer (ml): 800 Total IV fluid infused: 800 Progress Note Anesthesia document: Postop Eval 1 completed: Yes
--- NOTE | 2024-01-28 11:16 | OP.BRONCH_ITS ---
Patient Name: Cale Johnson Procedure Date: 01/28/2024 10:20 AM Date of : 1945 Age: 78 Procedure: Bronchoscopy Indications: Abnormal CT scan of chest Providers: Pablo Vega MD Medicines: Monitored Anesthesia Care Complications: No immediate complications Procedure: Pre-Anesthesia Assessment: - A History and Physical has been performed. Patient meds and allergies have been reviewed. The risks and benefits of the procedure and the sedation options and risks were discussed with the patient. All questions were answered and informed consent was obtained. Patient identification and proposed procedure were verified prior to the procedure by the physician and the nurse in the procedure room. Mental Status Examination: alert and oriented. Airway Examination: normal oropharyngeal airway. Respiratory Examination: poor air movement. CV Examination: normal. ASA Grade Assessment: III - A patient with severe systemic disease. After reviewing the risks and benefits, the patient was deemed in satisfactory condition to undergo the procedure. The anesthesia plan was to use monitored anesthesia care (MAC). Immediately prior to administration of medications, the patient was re-assessed for adequacy to receive sedatives. The heart rate, respiratory rate, oxygen saturations, blood pressure, adequacy of pulmonary ventilation, and response to care were monitored throughout the procedure. The physical status of the patient was re-assessed after the procedure. After I obtained informed consent, the scope was passed under direct vision. Throughout the procedure, the patient's blood pressure, pulse, and oxygen saturations were monitored continuously. The bronchoscope was introduced through the mouth and advanced to the tracheobronchial tree. The procedure was accomplished without difficulty. The patient tolerated the procedure well. Findings: The nasopharynx/oropharynx appears normal. The larynx appears normal. The vocal cords appear normal. The subglottic space is normal. The trachea is of normal caliber. The meme is sharp. The tracheobronchial tree of the left lung was examined to at least the first subsegmental level. Bronchial mucosa and anatomy in the left lung are normal; there are no endobronchial lesions, and no secretions. Right Lung Abnormalities: Extrinsic compression was found in the right mainstem bronchus and in the bronchus intermedius. The airway lumen is nearly occluded. The lesion was not traversed. A nearly completely obstructing lesion was found in the right mainstem bronchus and in the bronchus intermedius. Endobronchial biopsies were performed in the right mainstem bronchus using forceps and sent for cell count, bacterial culture, viral smears & culture, and fungal & AFB analysis and cytology. Three samples were obtained. Washings were obtained in the right mainstem bronchus and sent for cell count, bacterial culture, viral smears & culture, and fungal & AFB analysis and cytology. The return was bloody. Impression: - Abnormal CT scan of chest - The airway examination of the left lung was normal. - Extrinsic compression was found in the right mainstem bronchus and in the bronchus intermedius. - A lesion was found in the right mainstem bronchus and in the bronchus intermedius. - An endobronchial biopsy was performed. - Washings were obtained. Recommendation: - Await biopsy and washing results. Procedure Code(s): --- Professional --- 89378, Bronchoscopy, rigid or flexible, including fluoroscopic guidance, when performed; with bronchial or endobronchial biopsy(s), single or multiple sites Diagnosis Code(s): --- Professional --- R93.89, Abnormal findings on diagnostic imaging of other specified body structures J98.09, Other diseases of bronchus, not elsewhere classified J98.4, Other disorders of lung CPT copyright 2021 [employer]. All rights reserved. The codes documented in this report are preliminary and upon compliance engineer review may be revised to meet current compliance requirements. DO Pablo Rutherford MD 01/28/2024 11:16:03 AM This report has been signed electronically. Number of Addenda: 0 Note Initiated On: 01/28/2024 10:20 AM
[2024-01-28 11:41] LABS: Cytology, Washings SEE PATHOLOGY REPORT
--- NOTE | 2024-01-28 11:42 | CASEMGMT ---
Addendum entered by Ana Arenas 01/28/24 15:47: TC to Elana to confirm they are able to meet pt at home for oxygen concentrator change out. She states Erasto will be leaving to go now. RAFFI BRODERICK in pt room, pt dtr and are going home to meet Erasto and bring back portable oxygen tank. Per Elana, pt will need to use these as his portable concentrator only goes up to 5L as well. Pt and family aware. Updated pt nurse. Addendum entered by Ana Arenas 01/28/24 15:08: Pt requires change in oxygen rx. TC to Karen, spoke with Elana who is aware of this and that pt will be dc'ing today. [facility] for [facility] sent via [facility] at this time. Addendum entered by Ana Arenas 01/28/24 13:51: Received tc back from 's office, appt made for tomorrow at 3pm. Added to dc instructions. Addendum entered by Ana Arenas 01/28/24 12:54: TC to 's office, left message with request for bag shop worker appt or 3pm for tomorrow if available. Will await returned call. Addendum entered by Ana Arenas 01/28/24 12:49: Received tc from 's office, [place] that they can no longer do same day appts. RAFFI BRODERICK into pt room, pt, and dtr present, they are aware of this information. Pt prefers an bag shop worker appt or a 3pm appt. They are aware that RAFFI BRODERICK will make appt. Pt states he had been going to pulmonary rehab, but cannot at this time continue and has missed the last few sessions. Pt is agreeable to PT being added on to the [facility]. Pt also states his home oxygen concentrator goes to 5L. Hospitalist present in room at end of conversation. TC to Sandra at [facility], added PT and she is aware pt will dc today. Original Note: Pt asked for RAFFI BRODERICK. She asked if she can have the paperwork to give so HH can start upon dc. She is aware that pt will need to see in the office first. She asked if he could go directly from the floor. Made her aware that yesterday the office staff stated that there needed to be a day in between hospital dc and the appt. TC to 's office to confirm this information, left message for centrifugal drier operator. Updated pt that RN CM will await for returned call.
[2024-01-28 13:23] LABS: Color/Body Fluid RED; Source- Body Fluid BRONCHIAL LAVAGE
[2024-01-28 13:24] LABS: Appearance/Body Fluid TURBID
--- NOTE | 2024-01-28 13:50 | PCM.POSTANE2 ---
Anesthesia Postop Eval I Sum Postop Eval Completion status Anesthesia document: Postop Eval 1 completed: Yes Anesthesia Postop Eval I Summary Anesthesia Postop Eval I Summary: Anesthesia Postop Eval I: Assessment Summary Airway patent Yes 01/28/24 11:22 [email or web address] Spontaneous unlabored Yes 01/28/24 11:22 [email or web address] respirations Mental status Awake 01/28/24 11:22 [email or web address] nausea No 01/28/24 11:22 [email or web address] Vomiting No 01/28/24 11:22 [email or web address] Anesthesia Postop Eval I: Fluid Summary Crystalloid volume administer 800 01/28/24 11:22 [email or web address] (ml) Colloids volume administered ( ml) Blood Product volume administered (ml) Total IV fluid infused 800 01/28/24 11:22 [email or web address] Anesthesia Postop Eval I: Summary Notes Anesthesia Complication Yes 01/28/24 11:22 [email or web address] Anesthesia Complication O2 sat <90% for 01/28/24 11:22 [email or web address] Comment: most of case d/t LUIS CARLOS Post-operative progress note Anesthesia: Postop Eval II Evaluation Mental status: Awake and Calm Pain Level: 0 nausea: No Vomiting: No Progress Note Post-operative progress note: Patient maintaining saturations at 94-95% with 4-5 l/m O2 Complications Anesthesia Complication: No
[2024-01-28 14:12] LABS: Lymphocytes 1 %; Macrophages 1 %; Neutrophil (Segs) 41 %; Other Cell Type/BF 57 %
[2024-01-28 14:34] LABS: Body Fluid QC Type(s) BF1Q,BF2Q
[2024-01-28 14:35] LABS: Red Cell Count/Body Fluid 58333 /mm3; White Blood Count/Body Fluid 2300 /mm3
--- NOTE | 2024-01-28 14:58 | PCM.DC.SUM ---
Providers Date of Admission: 01/26/24 Primary Care Physician: Dr. David Chandler MD Consultations 01/26/24 22:08 Consult: Manager Strategic Development / Pulmonary Medicine Routine Consulting Provider: Intensivists/Pulmonary Med Reason for Consult: Right PNA, AE COPD and known Lung Cancer. EMERGENT Consult: No MD Notified: Yes Date Notified: 01/27/24 Time Notified: 06:01 Method of Notification: Text Reason For Visit: RIGHT PNA AE COPD HISTORY OF LUNG CANCER Diagnosis Discharge Diagnosis (1) Chronic hypoxemic respiratory failure: Status: Chronic Code(s): J96.11 - Chronic respiratory failure with hypoxia (2) Pneumonia: Status: Acute Code(s): J18.9 - Pneumonia, unspecified organism Qualifiers: Laterality: right Lung location: unspecified part of lung Pneumonia type: due to unspecified organism Qualified Code(s): J18.9 - Pneumonia, unspecified organism Medications at Discharge Home Medications albuterol sulfate 90 mcg/actuation aerosol inhaler 1 - 2 puff inhalation Q4H PRN PRN Wheezing 10/20/13 pramipexole 0.5 mg tablet 0.5 mg PO BID RLS 10/05/16 pantoprazole 40 mg tablet,delayed release 40 mg PO QHS 07/17/19 acetaminophen 325 mg tablet 650 mg (2 x 325 mg) PO Q4H PRN PRN Pain Score 1-5/10 07/24/19 doxepin 25 mg capsule 100 mg PO QHS SLEEP 11/05/20 budesonide 0.5 mg/2 mL suspension for nebulization 0.5 mg (2 mL) inhalation BID #120 mL 05/02/21 febuxostat 40 mg tablet (Uloric) 40 mg PO QHS GOUT 06/21/21 prednisone 5 mg tablet 7.5 mg PO DAILY 01/14/23 vitamin X28-lradkoq B1 1,000 mcg-100 mg/mL injection solution 1 ml IM .Q2W 01/14/23 albuterol sulfate 2.5 mg/3 mL (0.083 %) solution for nebulization 2.5 mg (3 mL) inhalation Q4H PRN #25 vials 08/09/23 budesonide 160 mcg-glycopyr 9 mcg-formot 4.8 mcg/actuation HFA inhaler (Breztri Aerosphere) 2 inh inhalation BID 01/26/24 testosterone cypionate 100 mg/mL intramuscular oil (Depo-Testosterone) 100 mg IM .twice monthly 01/26/24 Hospital Course Procedures Bronchoscopy, EKG and - (CT chest/CT lumbar spine/chest x-ray) Summary of Care Provided Minutes Spent on Discharge: 42 Hospital Course: Mr. Johnson is a 78-year-old white male who presented to the emergency department [facility] on 01/26/2024 due to worsening shortness of breath and cough. He does have a history of asthma/COPD with overlap syndrome and chronic hypoxic respiratory failure on 3 to 4 L of baseline during the day and 5 L nasal cannula at night. He also has a remote history of lung cancer status post right upper lobe resection with adjuvant chemo and radiation. As an outpatient he was recently diagnosed with bilateral pneumonia and treated with Levaquin for 7 days as well as a prednisone taper by his primary care physician. Prednisone taper finished 2 days ago and his antibiotic have been completed for about 4 days now. Patient reported that he initially felt better but then the day prior to presentation as the day progressed his cough returned and this was followed by dyspnea on exertion that progressed to shortness of breath at rest. He tried to use his maintenance and rescue inhalers at home but they are not effective so elected to come to the emergency department for treatment. His cough is nonproductive and he reported some fevers but no chills. He denied chest pain. Vital signs on presentation showed temperature of 98.6, heart rate 100, blood pressure was 137/94, respiratory was 24 and oxygen saturation was 93% on 3 L nasal cannula. CBC showed leukocytosis with a white count of 12.9 and a left shift having an 82.6% neutrophilia. His hemoglobin is elevated at 16.9. Chemistry panel showed normal electrolytes with a slightly elevated serum creatinine from baseline at 2.10 (baseline 1.7-1.9). His troponin was 15. Chest x-ray showed significant interval worsening throughout the right hemithorax with diffuse increased density and a right effusion that appeared to be worsening with significant volume loss as well as interstitial thickening of the left midlung in the left base. CT of the chest was obtained and demonstrated postsurgical changes on the right with post lobectomy volume loss, extensive consolidation in the right lung with atelectasis and volume loss and suspected bronchial occlusion of the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 intermedius by either soft tissue or possibly mucous plugging but endobronchial mass cannot be excluded, small locules of air in atelectatic lung that appear to be consistent with air bronchograms and subsegmental consolidation of the left upper lobe. There are also a few small nodules in the left lung as well as mediastinal lymphadenopathy. He was admitted to medical floor and placed on broad-spectrum antibiotics with vancomycin and Zosyn. Patient reports that he had not been on oxygen up until about 4 to 6 weeks ago and since then has progressively gotten worse requiring more oxygen per discussion with the patient after admission. Was treated as noted above with Levaquin and states he completed the whole course as well as the prednisone taper. He states he felt a little bit better but never completely resolved. He is having pleuritic sounding chest pain associated with intense coughing but the cough is nonproductive. I discussed the case with Dr. Pablo Vega who agreed to do a bronchoscopy which was performed on 01/27/2025 and demonstrated extrinsic compression of the right mainstem bronchus and in the bronchus intermedius with a lesion found in the right mainstem bronchus and the bronchus intermedius. Endobronchial biopsy was performed and washings were obtained. Biopsies were pending at the time of discharge however recurrence of his malignancy was suspected. The findings were discussed with Dr. Noble who will arrange for outpatient follow-up to discuss ongoing plan with regards from the oncological standpoint. Dr. Vega felt that the patient did not truly have a postobstructive pneumonia at this point but was at risk for recurrence and needs close follow-up. He recommended discharging him without antibiotics. We were able to perform an ambulatory pulse ox and the patient was informed that he will need oxygen 4 L at rest with 6 L on exertion. Oxygen saturations on 6 L with exertion were 90%. Arrangement for change in his oxygen prescription for at home was accounted for and new prescription was sent to his oxygen supplier. Findings from the bronchoscopy and the overall plan were discussed with the patient and his family who are at the bedside. Patient was discharged home in stable condition on 01/28/2024. 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 -Suspected recurrence of lung malignancy--> biopsy pending at discharge Leukocytosis Acute on chronic hypoxic respiratory failure Elevated serum creatinine-resolved CKD stage IIIb History of lung malignancy Essential hypertension Hyperlipidemia History of pulmonary embolism GERD Hypogonadism Restless leg syndrome Gout History of renal cell carcinoma status post nephrectomy History of bladder cancer LUIS CARLOS Obesity Remote history of tobacco abuse Physical Exam Const alert, oriented x3, no apparent distress, no limitations and well nourished; Negative for average body habitus or healthy appearing Constitutional Narrative: Obese, older, white male, sitting up in a chair at the bedside, appears comfortable, nontoxic, family at bedside, case management at bedside General Appearance: cooperative, comfortable, well kempt and well developed Orientation / Consciousness: awake, oriented to person, oriented to place and oriented to time Exam Limitations: no limitations Nutritional Appearance: obese HEENT normocephalic, head/scalp atraumatic, hearing grossly normal bilaterally and moist oral mucous membranes HEENT Narrative: Mallampati 3, no thrush Eyes PERRL, EOMs intact bilaterally and conjunctivae normal Eyes Narrative: No scleral icterus Neck no lymphadenopathy and supple Neck Narrative: Trachea midline, no thyroid enlargement Resp normal respiratory effort, no retractions, no use of accessory muscles and No clear to auscultation bilaterally Resp Narrative: Significantly decreased at right lung base but otherwise clear Auscultation: Negative for rales, rhonchi or wheezes Cardio regular rate, regular rhythm, S1 normal heart sound, S2 normal heart sound, no murmurs, no rub, no gallops and no clicks GI normal to inspection, nondistended, normoactive bowel sounds, soft to palpation and non-tender Extremity normal to inspection and full ROM Extremity Narrative: Trace bilateral lower extremity edema, no cyanosis or clubbing Skin no rashes or lesions noted, no wounds, skin turgor normal and no jaundice Neuro oriented x3, CN's II-XII intact bilaterally, moves all extremities and no focal motor deficits Speech: speech normal Psych affect normal Psych Narrative: Very pleasant, interacts appropriately, calm Weight / BMI Weight Weight: 108 kg Body Mass Index (BMI) 30.5 ABG / Lab / Microbiology Data 01/28/24 06:19 01/28/24 06:19 Laboratory: Laboratory Results - last 24 hr 01/28/24 06:19: WBC 17.1 H, RBC 5.30, Hgb 15.5, Hct 49.3, MCV 93.0, MCH 29.2, MCHC 31.4 L, RDW Std Deviation 49.0 H, RDW Coeff of Crystal 14.3, Plt Count 187, MPV 10.6, Immature Gran % (Auto) 2.200 H, Neut % (Auto) 91.3 H, Lymph % (Auto) 2.9 L, [place] % (Auto) 3.4, Eos % (Auto) 0.0, Baso % (Auto) 0.2, Absolute Neuts (auto) 15.7 H, Absolute Lymphs (auto) 0.50 L, Nucleated RBC % 0, PT 13.8, INR 1.1, Sodium 140, Potassium 4.0, Chloride 106, Carbon Dioxide 28.0, Anion Gap 6, BUN 30 H, Creatinine 1.82 H, Estim Creat Clear Calc 43.77, Est GFR (MDRD) Af Amer 47 L, Est GFR (MDRD) Non-Af 39 L, BUN/Creatinine Ratio 16.5, Glucose 114 H, Calcium 8.3 L 01/28/24 11:36: Fluid Source BRONCHIAL LAVAGE, Fluid Color RED, Fluid Appearance TURBID, Fluid WBC 2300, Fluid RBC 58731, Fluid Tot Cell Count TNP, Fluid Neutrophils 41, Fluid Lymphocytes 1, Fluid Macrophages 1, Fluid Other Cells 57, Fl Pathologist Comment May follow, Fluid Comment 2 Not Reportable Microbiology: Microbiology 01/27/24 11:07 Urine, Clean Catch Legionella Antigen - Final 01/27/24 11:07 Urine, Clean Catch Streptococcus pneumoniae Antigen (M - Final D/C Instructions Discharge Diet: No restrictions Discharge Activity: Return to Normal Activity (Please use oxygen as described in discharge instructions) Meaningful Use Info Meaningful Use Meaningful Use Diagnoses (Choose all that apply): None applicable Ischemic Stroke Statin Dosing Therapy Reference: STATIN DOSE THERAPY REFERENCE: * Patients > 75 years receive moderate or high dose statin therapy. * Patients 75 years or YOUNGER should receive HIGH intensity statin dose unless contraindicated. You will be required to document reason for non-treatment if statin daily dose does not meet guidelines. HIGH DOSE STATIN THERAPY DAILY Atorvastatin > than or = to 40 mg Rosuvastatin > than or = to 20 mg Amlodipine + Atorvastatin > than or = to 2.5/40 mg Ezetimibe + Simvastatin 10/80 mg Simvastatin 80mg Discharge Plan Admission Admit Date/Time: 01/26/24 21:22 Primary Reason for Your Visit: Shortness of breath/cough Attending Provider: Alysia Briggs Primary Care Provider: David Chandler Chi Consulting Providers: Andrew Gayle; Carlos Joseph; Pablo Vega; Maxi Sanches; Josef Jaime; Ragini Mari; August Saavedra; Alli Grace; Jessica Kim; Miley Cisneros; Fito Denton; Shukri De Los Santos; Carlo Sparrow; Ajit Smith; Victor Manuel Wilcox; Kelvin Perez Instructions Additional Instructions / Restrictions: 1. Please wear 4 L of oxygen at rest and 6 L with exertion. Please move slowly and take your time with exertion. 2. Dr. Noble should be contacting you for follow-up. If you do not hear from him by the end of the week please call his office next Saturday. Discharge Orders/Prescriptions Prescriptions: Continued febuxostat [Uloric] 40 mg tablet 40 mg PO QHS albuterol sulfate 1 INHALER inhaler 1 - 2 puff INHALATION Q4H PRN PRN (Reason: Wheezing) pramipexole 0.5 MG tablet 0.5 mg PO BID pantoprazole 40 MG tablet 40 mg PO QHS acetaminophen 325 MG tablet 650 mg PO Q4H PRN PRN (Reason: Pain Score 1-5/10) 0RF doxepin 25 MG capsule 100 mg PO QHS vitamin D01-ibfolbt B1 1,000-100 mg/mL Solution 1 ml IM .Q2W prednisone 5 mg Tablet 7.5 mg PO DAILY albuterol sulfate 2.5 mg /3 mL (0.083 %) solution for nebulization 2.5 mg inhalation Q4H PRN Qty: 25 0RF Rx Instructions: Use q4 hours and PRN for wheezing Neetutri Aerosphere 160-9-4.8 mcg/actuation HFA aerosol inhaler 2 inh inhalation BID testosterone cypionate [Depo-Testosterone] 100 mg/mL oil 100 mg IM .twice monthly Rx Instructions: next dose due 02/02 budesonide 0.5 mg/2 mL suspension for nebulization 0.5 mg inhalation BID Qty: 120 3RF Referrals / Follow Up: David Chandler Chi, MD [Primary Care Provider] - 01/29/24 3:00 pm Disposition Disposition (needs filled in before D/C Order can be placed): Home Health Service Charges/Coding Visit Charges Inpatient E&M: 96187 Disch Hosp >30min
--- NOTE | 2024-01-28 15:24 | PHA.DC.MR.R ---
Pharmacy [place] Med Reconciliation Pharmacy Service has performed discharge medication reconciliation for this patient. The patient's discharge medication list was reviewed for discrepancies and discrepancies were resolved. Medications at Discharge Home Medications albuterol sulfate 90 mcg/actuation aerosol inhaler 1 - 2 puff inhalation Q4H PRN PRN Wheezing 10/20/13 pramipexole 0.5 mg tablet 0.5 mg PO BID RLS 10/05/16 pantoprazole 40 mg tablet,delayed release 40 mg PO QHS 07/17/19 acetaminophen 325 mg tablet 650 mg (2 x 325 mg) PO Q4H PRN PRN Pain Score 1-5/10 07/24/19 doxepin 25 mg capsule 100 mg PO QHS SLEEP 11/05/20 budesonide 0.5 mg/2 mL suspension for nebulization 0.5 mg (2 mL) inhalation BID #120 mL 05/02/21 febuxostat 40 mg tablet (Uloric) 40 mg PO QHS GOUT 06/21/21 prednisone 5 mg tablet 7.5 mg PO DAILY 01/14/23 vitamin E81-xtmgmes B1 1,000 mcg-100 mg/mL injection solution 1 ml IM .Q2W 01/14/23 albuterol sulfate 2.5 mg/3 mL (0.083 %) solution for nebulization 2.5 mg (3 mL) inhalation Q4H PRN #25 vials 08/09/23 budesonide 160 mcg-glycopyr 9 mcg-formot 4.8 mcg/actuation HFA inhaler (Breztri Aerosphere) 2 inh inhalation BID 01/26/24 testosterone cypionate 100 mg/mL intramuscular oil (Depo-Testosterone) 100 mg IM .twice monthly 01/26/24
[2024-01-30 14:22] LABS: Pathologist Comment/Body Fluid Reviewed
== END 2024-01-28 16:27 | disposition home health service (06) | DRG 205 ==
LOC: ED 20:14 → MS3 21:31
PROVIDERS: Internal Medicine Critical Care Medicine; Physician Assistant; Admitting Provider Internal Medicine; Emergency Provider Emergency Medicine; PCP Family Medicine Geriatric Medicine; Visit Provider Internal Medicine
PROC: 0BJ08ZZ Inspection of Tracheobronchial Tree, Via Natural or Artificial Opening Endoscopic (ICD-10-PCS; CPT 31622; principal; 2024-01-28 10:15)
DX: J98.4 Other disorders of lung (principal); J96.21 Acute and chronic respiratory failure with hypoxia; C34.90 Malignant neoplasm of unspecified part of unspecified bronchus or lung; Z99.81 Dependence on supplemental oxygen; J98.09 Other diseases of bronchus, not elsewhere classified; N18.32 Chronic kidney disease, stage 3b; J44.9 Chronic obstructive pulmonary disease, unspecified; I12.9 Hypertensive chronic kidney disease with stage 1 through stage 4 chronic kidney disease, or unspecified chronic kidney disease; G25.81 Restless legs syndrome; E78.5 Hyperlipidemia, unspecified; K21.9 Gastro-esophageal reflux disease without esophagitis; G47.33 Obstructive sleep apnea (adult) (pediatric); M1A.9XX0 Chronic gout, unspecified, without tophus (tophi); E66.9 Obesity, unspecified; Z68.30 Body mass index [BMI] 30.0-30.9, adult; G89.29 Other chronic pain; Z79.899 Other long term (current) drug therapy; Z92.21 Personal history of antineoplastic chemotherapy; Z92.3 Personal history of irradiation; Z87.891 Personal history of nicotine dependence; Z85.51 Personal history of malignant neoplasm of bladder; Z85.528 Personal history of other malignant neoplasm of kidney; Z85.118 Personal history of other malignant neoplasm of bronchus and lung; Z86.711 Personal history of pulmonary embolism; Z90.2 Acquired absence of lung [part of]; Z90.5 Acquired absence of kidney
CPT/HCPCS: 36415; 71046; 71250; 72131; 80048; 84484; 85025; 85610; 87070; 87205; 87449; 88108; 88305; 88313; 89050; 93005; 94640; 94668; 99285; J7030; J7040; J7050; A4216; J3490

== ENCOUNTER 2024-02-07 12:54 | Emergency (ER) | payer MEDICARE, OTHER, SELFPAY ==
[2024-01-10 09:38] VITALS: BMI 30.3
[2024-02-07] VITALS (8 sets, daily range): BP systolic 133–157; BP diastolic 76–97; PULSE 59–91; RESP 16–24; TEMP 36.4–37.2; O2SAT 94–97; BMI 30.8
--- NOTE | 2024-02-07 13:26 | RAD_ITS ---
STUDY: X-RAY CHEST REASON FOR EXAM: Male, 78 years old. Fever and cough TECHNIQUE: PA and lateral views of the chest. COMPARISON: 01/26/2024 FINDINGS: EKG leads overlie the chest The previous study showed near complete opacification of the right hemithorax. There is much more right lung visualized on the current study than on the previous study. This suggests decreasing infiltrate/atelectasis/effusion. There is stable right apical pleural thickening, and left upper lobe atelectasis. Both lungs show chronic interstitial changes. Normal size heart. Normal mediastinum and ghulam. Normal visualized pulmonary arteries. Normal visualized aortic arch and descending thoracic aorta. There are diffuse degenerative changes of the visualized thoracic spine. Normal visualized ribs, clavicles, and shoulders. There is no demonstrated abnormality of the visualized soft tissue structures of the upper abdomen. RAD/Chest PA and Lateral IMPRESSION: Overall improvement compared to the previous study with much more right lung visualized on current study than on the previous study suggesting partial but not yet complete resolution of the previously noted atelectasis/infiltrate/effusion. Continued follow-up recommended to ensure complete resolution Both lung allison show chronic interstitial changes, there is stable left upper lobe atelectasis and nonspecific pleural thickening in the right apex Electronically Signed: Luís Blank MD at 13:59 EDT ,
--- NOTE | 2024-02-07 13:26 | ED.VIS.DYS ---
HPI <MARIANGEL Cruz - Last Filed: 02/07/24 15:54> History of Present Illness Chief Complaint: Shortness of Breath Narrative Narrative: 78-year-old male with past medical history of lung cancer status post right lobectomy, history of chemo/radiation not currently on treatment, COPD presents with 2 days of chills, increased dyspnea and productive cough. On 01/25/2023 he was admitted to [facility] for failure of outpatient antibiotics and bilateral pneumonia. He completed antibiotics. He had a bronchoscopy on 01/27 and tumors were found in the right bronchi which were cancerous. He states the doctor could only remove part of the tumors and wash the area out. Over the last 2 days he is more short of breath with a worsening of his chronic cough and has had chills and a temperature around 99 F. His feet have also become significantly swollen over the last few days. He was on Bumex for about a month and states he discontinued 1 to 2 weeks ago. At baseline he wears 4 L during the day and 6 L at night but over the last 2 days trended up to 6 L continuously. PFSH <MARIANGEL Cruz - Last Filed: 02/07/24 15:54> [facility] Medical History (Updated 02/07/24 @ 15:54 by MARIANGEL Cruz) Pneumonia Chronic hypoxemic respiratory failure History of lung cancer Wears glasses Cancer Alcohol use History of steroid therapy Walker as ambulation aid Arthritis Gout Restless legs TIA (transient ischemic attack) Gastric reflux Sleep apnea Former smoker History of edema Cardiology follow-up encounter History of echocardiogram History of stress test History of irregular heartbeat Lung cancer Encounter for screening for COVID-19 Nicotine dependence, cigarettes, in remission Asthma-COPD overlap syndrome Hypogonadism Hyperlipidemia Chronic kidney disease, stage 3 Chronic gout Renal cancer Bladder cancer Pulmonary embolism CKD (chronic kidney disease) stage 3, GFR 30-59 ml/min Renal cell carcinoma Bladder carcinoma Chronic back pain GERD (gastroesophageal reflux disease) LUIS CARLOS (obstructive sleep apnea) COPD (chronic obstructive pulmonary disease) Home Medications ?Medication ?Instructions ?Recorded ?Last Taken ?Type albuterol sulfate 90 mcg/actuation 1 - 2 puff inhalation Q4H PRN PRN 10/20/13 10/26/13 History aerosol inhaler Wheezing 1 - 2 PUFF pramipexole 0.5 mg tablet 0.5 mg PO BID RLS 10/05/16 Unknown History pantoprazole 40 mg tablet,delayed 40 mg PO QHS 07/17/19 Unknown History release acetaminophen 325 mg tablet 650 mg (2 x 325 mg) PO Q4H PRN PRN 07/24/19 Unknown Rx Pain Score 1-5/10 doxepin 25 mg capsule 100 mg PO QHS SLEEP 11/05/20 Unknown History budesonide 0.5 mg/2 mL suspension 0.5 mg (2 mL) inhalation BID #120 05/02/21 Unknown Rx for nebulization mL febuxostat 40 mg tablet (Uloric) 40 mg PO QHS GOUT 06/21/21 Unknown History prednisone 5 mg tablet 7.5 mg PO DAILY 01/14/23 Unknown History vitamin [id number] B1 1,000 1 ml IM .Q2W 01/14/23 Unknown History mcg-100 mg/mL injection solution albuterol sulfate 2.5 mg/3 mL 2.5 mg (3 mL) inhalation Q4H PRN 08/09/23 Unknown Rx (0.083 %) solution for nebulization #25 vials budesonide 160 mcg-glycopyr 9 2 inh inhalation BID 01/26/24 Unknown History mcg-formot 4.8 mcg/actuation HFA inhaler (Breztri Aerosphere) testosterone cypionate 100 mg/mL 100 mg IM .twice monthly 01/26/24 Unknown History intramuscular oil (Depo-Testosterone) levofloxacin 750 mg tablet 750 mg PO DAILY 6 days #6 tabs 02/07/24 Unknown Rx prednisone 10 mg tablet 10 mg PO DAILY #48 TABLETS 02/07/24 Unknown Rx Allergy/AdvReac Type Severity Reaction Status Date / Time No Known Allergies Allergy Verified 02/07/24 13:59 Family History Father Malignant neoplasm of lung Mother Hypertension Surgical History (Updated 02/07/24 @ 13:03 by Sophia Lay) History of lobectomy of lung History of cataract extraction History of colonoscopy History of thoracotomy History of tonsillectomy H/O kidney removal History of appendectomy History of back surgery History of bladder surgery Social History Smoking Status: Former smoker quit date: 08/05/89 pack-years: 38 EXAM <Onelia Glauthier, PA - Last Filed: 02/07/24 15:54> Physical Exam Narrative Exam Narrative: CONST: Patient sitting in no acute distress. EYES: Normal inspection. NECK: Normal inspection. RESP: Right lung sounds diminished (former lobectomy on the side). CVS: Regular rate and rhythm, no murmur, no gallop. SKIN: Color normal, no rash, warm, dry, intact. EXTREMITIES: 3+ edema both feet. NEURO: Alert and answering questions appropriately. PSYCH: Normal affect. Const Vital Signs: 02/07/24 12:54 02/07/24 13:45 02/07/24 13:45 Temperature 99 F Temperature Source Temporal Pulse Rate 91 81 Respiratory Rate 16 20 H Respiratory Effort Respiratory Depth Respiratory Pattern Normal Blood Pressure 133/76 H Blood Pressure Mean 95 Pulse Ox 94 97 Oxygen Delivery Method Room Air Nasal Cannula Oxygen Flow Rate (L/min) 4 02/07/24 13:53 02/07/24 13:58 02/07/24 14:00 Temperature 97.6 F L Temperature Source Temporal Pulse Rate 59 L 79 Respiratory Rate 24 H 16 Respiratory Effort Short of Breath Respiratory Depth Normal Respiratory Pattern Normal Blood Pressure 145/92 H 141/90 H Blood Pressure Mean 109 107 Pulse Ox 97 94 Oxygen Delivery Method Nasal Cannula Nasal Cannula Nasal Cannula Oxygen Flow Rate (L/min) 6 6 6 02/07/24 15:15 02/07/24 15:52 02/07/24 16:00 Temperature 97.8 F Temperature Source Pulse Rate 83 81 78 Respiratory Rate 16 20 H 18 Respiratory Effort Respiratory Depth Respiratory Pattern Blood Pressure 141/90 H 157/97 H 157/87 H Blood Pressure Mean 107 117 110 Pulse Ox 97 97 96 Oxygen Delivery Method Nasal Cannula Oxygen Flow Rate (L/min) 6 <Dr. Obed Herrera MD - Last Filed: 02/07/24 16:36> Physical Exam Const Vital Signs: 02/07/24 12:54 02/07/24 13:45 02/07/24 13:45 Temperature 99 F Temperature Source Temporal Pulse Rate 91 81 Respiratory Rate 16 20 H Respiratory Effort Respiratory Depth Respiratory Pattern Normal Blood Pressure 133/76 H Blood Pressure Mean 95 Pulse Ox 94 97 Oxygen Delivery Method Room Air Nasal Cannula Oxygen Flow Rate (L/min) 4 02/07/24 13:53 02/07/24 13:58 02/07/24 14:00 Temperature 97.6 F L Temperature Source Temporal Pulse Rate 59 L 79 Respiratory Rate 24 H 16 Respiratory Effort Short of Breath Respiratory Depth Normal Respiratory Pattern Normal Blood Pressure 145/92 H 141/90 H Blood Pressure Mean 109 107 Pulse Ox 97 94 Oxygen Delivery Method Nasal Cannula Nasal Cannula Nasal Cannula Oxygen Flow Rate (L/min) 6 6 6 02/07/24 15:15 02/07/24 15:52 02/07/24 16:00 Temperature 97.8 F Temperature Source Pulse Rate 83 81 78 Respiratory Rate 16 20 H 18 Respiratory Effort Respiratory Depth Respiratory Pattern Blood Pressure 141/90 H 157/97 H 157/87 H Blood Pressure Mean 107 117 110 Pulse Ox 97 97 96 Oxygen Delivery Method Nasal Cannula Oxygen Flow Rate (L/min) 6 [facility] <MARIANGEL Cruz - Last Filed: 02/07/24 15:54> [facility] Narrative Medical decision making narrative: History gathered from: Patient, Consults: Pulmonology Differential: Pneumonia, viral URI, COPD exacerbation Patient with history of COPD, lung cancer, recent bronchoscopy presents with 2 days of chills with increased shortness of breath and cough. He wears 4 L O2 during the day and 6 L at night but increased to 6 L over the last 2 days. He is on 6 L here around 97%. He is able to speak in full sentences in no distress. He has diminished right lung sounds from prior lobectomy and mild wheezing throughout. Chest x-ray shows significant improvement in large right-sided pneumonia from 2 weeks ago. He has a normal white count 8.0, normal electrolytes, stable chronic kidney disease with creatinine 1.58. EKG is nonischemic and troponin is 18. BNP 46. The attending discussed the case with his forester silviculture, Dr. Margarita Vega. Based on his symptoms clinically sounding infectious and the chest x-ray showing not complete resolution of the previously noted infiltrate, she recommended Levaquin and a 2-week prednisone taper starting at 40 mg and then gradually going back down to his daily 7.5 mg dose. First dose of antibiotic and steroid were given here. Patient has home O2 and nebulizer which he will continue. Return precautions discussed. He was discharged in stable condition. External records reviewed: Bronchoscopy 01/28/2024 Right mainstem bronchus has a lesion causing extrinsic compression which was biopsied. Lab Data Attestation: I reviewed the patient's lab results. Labs: Laboratory Results - last 24 hr 02/07/24 13:05 WBC 8.0 RBC 4.80 Hgb 13.9 Hct 44.1 MCV 91.9 MCH 29.0 MCHC 31.5 L RDW Std Deviation 49.0 H RDW Coeff of Crystal 14.4 Plt Count 160 MPV 9.8 Immature Gran % (Auto) 3.900 H Neut % (Auto) 79.2 H Lymph % (Auto) 6.8 L Deuel % (Auto) 8.1 Eos % (Auto) 1.4 Baso % (Auto) 0.6 Absolute Neuts (auto) 6.4 Absolute Lymphs (auto) 0.55 L Nucleated RBC % 0 Sodium 138 Potassium 3.6 Chloride 104 Carbon Dioxide 29.0 Anion Gap 5 BUN 23 H Creatinine 1.58 H Estim Creat Clear Calc 50.61 Est GFR (MDRD) Af Amer 55 L Est GFR (MDRD) Non-Af 45 L BUN/Creatinine Ratio 14.6 Glucose 111 H Calcium 8.4 L Troponin I High Sens 18 B-Natriuretic Peptide 46.8 Radiography Diagnostic Testing: Clinical Impression(s) from Imaging Studies Chest X-Ray 02/07/24 13:26 IMPRESSION: Overall improvement compared to the previous study with much more right lung visualized on current study than on the previous study suggesting partial but not yet complete resolution of the previously noted atelectasis/infiltrate/effusion. Continued follow-up recommended to ensure complete resolution Both lung allison show chronic interstitial changes, there is stable left upper lobe atelectasis and nonspecific pleural thickening in the right apex Electronically Signed: Luís Blank MD at 13:59 EDT , EKG Initial EKG: Attestation: I personally reviewed and interpreted this EKG as follows: Interpretation: Sinus Rhythm and No Acute Injury Pattern Comments: ED attending interpretation shows sinus rhythm at 79 bpm with occasional PACs Normal intervals No acute ST changes <Dr. Obed Herrera MD - Last Filed: 02/07/24 16:36> [facility] Lab Data Labs: Laboratory Results - last 24 hr 02/07/24 13:05 WBC 8.0 RBC 4.80 Hgb 13.9 Hct 44.1 MCV 91.9 MCH 29.0 MCHC 31.5 L RDW Std Deviation 49.0 H RDW Coeff of Crystal 14.4 Plt Count 160 MPV 9.8 Immature Gran % (Auto) 3.900 H Neut % (Auto) 79.2 H Lymph % (Auto) 6.8 L Deuel % (Auto) 8.1 Eos % (Auto) 1.4 Baso % (Auto) 0.6 Absolute Neuts (auto) 6.4 Absolute Lymphs (auto) 0.55 L Nucleated RBC % 0 Sodium 138 Potassium 3.6 Chloride 104 Carbon Dioxide 29.0 Anion Gap 5 BUN 23 H Creatinine 1.58 H Estim Creat Clear Calc 50.61 Est GFR (MDRD) Af Amer 55 L Est GFR (MDRD) Non-Af 45 L BUN/Creatinine Ratio 14.6 Glucose 111 H Calcium 8.4 L Troponin I High Sens 18 B-Natriuretic Peptide 46.8 Radiography Diagnostic Testing: Clinical Impression(s) from Imaging Studies Chest X-Ray 02/07/24 13:26 IMPRESSION: Overall improvement compared to the previous study with much more right lung visualized on current study than on the previous study suggesting partial but not yet complete resolution of the previously noted atelectasis/infiltrate/effusion. Continued follow-up recommended to ensure complete resolution Both lung allison show chronic interstitial changes, there is stable left upper lobe atelectasis and nonspecific pleural thickening in the right apex Electronically Signed: Luís Blank MD at 13:59 EDT Reading Location ID and State: [address] [place] [address] , Service support , Management Discussion w/another healthcare provider: Application Support Developer (Dr. Vega pulmonary) Treatment and Re-Evaluation Comments:: I have personally performed a face to face assessment of the patient and have reviewed the NARDA Note. I performed a substantive portion of the visit including all aspects of the following. My min findings include: History is finished antibiotics for obstructive mass/pneumonia about 4 or 5 days ago, had bronchoscopy here, and then had a EBUS at [facility] 3 days ago, with more resection that has come back showing adenocarcinoma. Since today after the EBUS, he has had increased cough and dyspnea when he is coughing. He states when he is not coughing he is not dyspneic. He has had some low-grade temperatures. No chest pain. Increased edema in his legs for the past 2 days as well. Exam is bilateral lower extremity edema symmetric to both knees 2+. No palpable cords or calf tenderness. Lungs are diminished on the right, which is where he has had lobectomy, otherwise clear. There is bronchospasm that is nonproductive. Otherwise speaking in full sentences, no JVD, abdomen benign. Medical Decison Making 2 view chest x-ray my interpretation shows bilateral pulmonary abnormalities/consolidation/scarring, however significantly improved compared with the white out on the right side that he had before. Radiology in agreement. The rest of his labs are noted, his BNP is very low and his troponin is negative and he does not have a significant leukocytosis. He was given nebulizer treatments had some improvement, he is satting 96% on his home 4 L right now. I discussed with Dr. Margarita Vega pulmonary she agrees with discharging him home on Levaquin of bronchitis dosing for the next week and upping his prednisone, tapering him down to his baseline 7.5 mg daily right now and following up as an outpatient. Other additions or changes: [None] Discharge Plan Triage Chief Complaint: Shortness of Breath ED Midlevel Provider: Onelia Zarco ED Provider: Obed Herrear Dx/Rx/DC Orders Clinical Impression: Acute exacerbation of chronic obstructive pulmonary disease, History of lung cancer, Dependence on continuous supplemental oxygen Instructions: COPD Meds Prescriptions: New levofloxacin 750 mg tablet 750 mg PO DAILY 6 Days Qty: 6 0RF prednisone 10 mg tablet 10 mg PO DAILY Qty: 48 0RF Rx Instructions: 4 po qd x 4 days, 3 po qd x 3 days, 2 po qd x 3 days, 1 po qd x 3 days, then back to your standard 7.5 mg once daily No Action febuxostat [Uloric] 40 mg tablet 40 mg PO QHS albuterol sulfate 1 INHALER inhaler 1 - 2 puff INHALATION Q4H PRN PRN (Reason: Wheezing) pramipexole 0.5 MG tablet 0.5 mg PO BID pantoprazole 40 MG tablet 40 mg PO QHS acetaminophen 325 MG tablet 650 mg PO Q4H PRN PRN (Reason: Pain Score 1-5/10) 0RF doxepin 25 MG capsule 100 mg PO QHS vitamin [id number] B1 1,000-100 mg/mL Solution 1 ml IM .Q2W prednisone 5 mg Tablet 7.5 mg PO DAILY albuterol sulfate 2.5 mg /3 mL (0.083 %) solution for nebulization 2.5 mg inhalation Q4H PRN Qty: 25 0RF Rx Instructions: Use q4 hours and PRN for wheezing Breztri Aerosphere 160-9-4.8 mcg/actuation HFA aerosol inhaler 2 inh inhalation BID testosterone cypionate [Depo-Testosterone] 100 mg/mL oil 100 mg IM .twice monthly Rx Instructions: next dose due 02/02 budesonide 0.5 mg/2 mL suspension for nebulization 0.5 mg inhalation BID Qty: 120 3RF Primary Care Provider: David Chandler Chi Referrals: Margarita Vega MD [Non-Staff] - David Chandler Chi, MD [Primary Care Provider] - Activity Restrictions/Additional Instructions: The forester silviculture recommended taking the antibiotic Levaquin and increasing your steroids for a 2-week taper. After you finish the prednisone taper you will continue your daily 7.5 mg dose. Please keep using your inhalers and nebulizers and follow-up with the forester silviculture. Print Language: Polish Disposition Disposition: Home, Self Care Discharge Date/Time: 02/07/24 16:04
--- NOTE | 2024-02-07 13:30 | EKG12_ITS ---
Test Reason : sob Blood Pressure : / mmHG Vent. Rate : 079 BPM Atrial Rate : 079 BPM P-R Int : 160 ms QRS Dur : 074 ms QT Int : 388 ms P-R-T Axes : 051 004 037 degrees QTc Int : 444 ms Sinus rhythm with Premature ventricular complexes Otherwise normal ECG Confirmed by Wayne Cornell ([id number]), editorial cartoonist ASHOK BOTELLO ([id number]) on 02/10/2024 10:38:38 AM Referred By: Confirmed By:Wayne Cornell
[2024-02-07] MEDS: Ipratropium/Albuterol Sulfate 3 ML AMPUL.NEB INHALATION (13:44)
[2024-02-07 13:58] LABS: Anion Gap 5 (5-15); BUN 23 mg/dL (7-18); BUN/Creat Ratio 14.6 RATIO (10-20); Calcium,Total 8.4 mg/dL (8.5-10.1); Chloride 104 mmol/L (98-107); Creatinine, Serum 1.58 mg/dL (0.70-1.30); EST Glomerular Filtration Rate 45 mL/min (>60); Est Glom Filt Rate - Afr Amer 55 mL/min (>60); Estimated Creatinine Clearance 50.61 ml/min; Glucose 111 mg/dL (74-106); Potassium 3.6 mmol/L (3.5-5.1); Sodium Level 138 mmol/L (136-145); Troponin-I HS 18 pg/mL (3.0-78.0)
[2024-02-07 14:08] LABS: BNP,B-Type NATRIURETIC PEPTIDE 46.8 pg/mL (0-100)
[2024-02-07 14:16] LABS: Absolute Lymphocyte Count 0.55 X10^3/uL (0.83-4.51); Absolute Neutrophil Count 6.4 X10^3/uL (2.0-7.7); Basophil# 0.05 X10^3/uL; Basophil% 0.6 % (0-1); Eosinophil# 0.11 X10^3/uL; Eosinophils% 1.4 % (0-5); Hematocrit 44.1 % (40-54); Hemoglobin 13.9 g/dL (13.0-16.5); Lymphocyte # 0.55 X10^3/ul (0.83-4.51); Lymphocyte % 6.8 % (19-41); Mean Corp Hgb Conc 31.5 g/dL (32-36); Mean Corpuscular Volume 91.9 fL (80-94); Mean Platelet Vol. 9.8 fl (6.2-12.0); Monocyte# 0.65 X10^3/uL; Monocyte% 8.1 % (0-10); NRBC Flagged by Analyzer 0 % (0-5); Neutrophil # 6.36 X10^3/uL (2.7-7.7); Neutrophil % 79.2 % (47-70); POSITIVE DIFFERENTIAL YES; Platelet Count 160 K/mm3 (150-450); RBC Distribution Width CV 14.4 % (11.6-14.6)
[2024-02-07] MEDS: predniSONE 20 MG Tablet 40 MG PO (15:33)
[2024-02-07] MEDS: levoFLOXacin 750 MG Tablet PO (15:33)
== END 2024-02-07 16:04 | disposition home or self-care (01) ==
PROVIDERS: Physician Assistant; Emergency Provider Emergency Medicine; PCP Family Medicine Geriatric Medicine; Visit Provider Emergency Medicine
DX: J44.1 Chronic obstructive pulmonary disease with (acute) exacerbation (principal); C34.91 Malignant neoplasm of unspecified part of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 or lung; N18.30 Chronic kidney disease, stage 3 unspecified; M54.9 Dorsalgia, unspecified; Z80.1 Family history of malignant neoplasm of trachea, bronchus and lung; E78.5 Hyperlipidemia, unspecified; Z92.21 Personal history of antineoplastic chemotherapy; R68.83 Chills (without fever); Z87.891 Personal history of nicotine dependence; Z99.81 Dependence on supplemental oxygen; Z86.73 Personal history of transient ischemic attack (TIA), and cerebral infarction without residual deficits; Z86.711 Personal history of pulmonary embolism; G47.33 Obstructive sleep apnea (adult) (pediatric)
CPT/HCPCS: 71046; 80048; 83880; 84484; 85025; 87631; 93005; 94640; 99284; A4216

== ENCOUNTER → 2024-02-12 | Outpatient (CLI) | payer MEDICARE, OTHER, SELFPAY ==
[2024-01-10 09:38] VITALS: BMI 30.3
--- NOTE | 2024-02-12 15:20 | RAD_ITS ---
STUDY: X-RAY - CERVICAL SPINE REASON FOR EXAM: Male, 78 years old. Neck pain. TECHNIQUE: 3 view(s) of the cervical spine were obtained on 4 images. COMPARISON: MRI of the cervical spine dated December 27, 2003 FINDINGS: Osteopenia. Normal anterior atlantoaxial articulation. Normal odontoid process. Normal cervical lordosis. Diffuse moderate uncovertebral and facet sclerosis. Moderate intervertebral disc space narrowing from C3-4 to C7-T1 with small osteophytes. Normal soft tissues. RAD/Cerv Spine 2 or 3 Views IMPRESSION: Osteopenia with moderate diffuse cervical spondylosis from C3-4 to C7-T1. Electronically Signed: Dm Jerry MD at 15:49 EDT ,
== END | disposition home or self-care (01) ==
LOC: RAD 15:11
PROVIDERS: PCP Family Medicine Geriatric Medicine; Referring Provider Family Medicine Geriatric Medicine; Visit Provider Family Medicine Geriatric Medicine
DX: M54.2 Cervicalgia (principal)
CPT/HCPCS: 72040

== ENCOUNTER 2024-02-19 13:00 | Outpatient (RCR) | payer MEDICARE, OTHER, SELFPAY ==
[2024-01-10 09:38] VITALS: BMI 30.3
[2024-02-03 00:42] VITALS: BP 140/80; BP 152/84; BMI 30.3
== END 2024-03-04 23:59 ==
LOC: PR 13:00
PROVIDERS: PCP Family Medicine Geriatric Medicine
DX: J44.9 Chronic obstructive pulmonary disease, unspecified (principal)
CPT/HCPCS: 97150; G0239

== ENCOUNTER → 2024-02-26 | Outpatient (CLI) | payer MEDICARE, OTHER, SELFPAY ==
[2024-01-10 09:38] VITALS: BMI 30.3
[2024-02-26 11:34] LABS: Anion Gap 6 (5-15); BUN 22 mg/dL (7-18); BUN/Creat Ratio 12.2 RATIO (10-20); Calcium,Total 8.4 mg/dL (8.5-10.1); Chloride 103 mmol/L (98-107); EST Glomerular Filtration Rate 39 mL/min (>60); Est Glom Filt Rate - Afr Amer 47 mL/min (>60); Glucose 78 mg/dL (74-106); Potassium 4.3 mmol/L (3.5-5.1); Sodium Level 137 mmol/L (136-145)
== END | disposition home or self-care (01) ==
LOC: LAB 10:38
PROVIDERS: PCP Family Medicine Geriatric Medicine; Referring Provider Internal Medicine Nephrology; Visit Provider Internal Medicine Nephrology
DX: N18.32 Chronic kidney disease, stage 3b (principal)
CPT/HCPCS: 36415; 80048

== ENCOUNTER → 2024-03-09 | Outpatient (CLI) | payer MEDICARE, OTHER, SELFPAY ==
[2023-11-11 08:19] VITALS: BMI 31.1
[2024-01-10 09:38] VITALS: BMI 30.3
--- NOTE | 2024-03-09 15:20 | RAD_ITS ---
STUDY: X-RAY CHEST REASON FOR EXAM: Male, 78 years old. WHEEZING TECHNIQUE: PA and lateral views of the chest. COMPARISON: February 07, 2024 FINDINGS: There is postoperative change of the right hilar region. There is elevation of the right diaphragm. There is stable right upper chest opacity and pleural thickening. There is right lower lung linear scarring or atelectasis. There is stable left midlung consolidation. There is no pleural effusion seen Normal size heart. There is distortion of the right hilum. Normal visualized pulmonary arteries. Normal visualized aortic arch and descending thoracic aorta. Normal visualized thoracic spine. There is right posterior rib fracture. There is no demonstrated abnormality of the visualized soft tissue structures of the upper abdomen. RAD/Chest PA and Lateral IMPRESSION: Postoperative change. Stable right upper and left midlung opacities with consolidation and/or atelectasis. Electronically Signed: Obed Munguia MD at 19:14 EDT ,
[2024-03-09 16:02] LABS: Absolute Lymphocyte Count 0.64 X10^3/uL (0.83-4.51); Absolute Neutrophil Count 3.6 X10^3/uL (2.0-7.7); Basophil# 0.04 X10^3/uL; Basophil% 0.8 % (0-1); Eosinophil# 0.01 X10^3/uL; Eosinophils% 0.2 % (0-5); Lymphocyte # 0.64 X10^3/ul (0.83-4.51); Lymphocyte % 12.5 % (19-41); Mean Corp Hgb Conc 31.9 g/dL (32-36); Mean Corpuscular Hgb 28.7 pg (27.0-32.0); Mean Platelet Vol. 10.1 fl (6.2-12.0); Monocyte# 0.71 X10^3/uL; Monocyte% 13.9 % (0-10); NRBC Flagged by Analyzer 0 % (0-5); Neutrophil # 3.62 X10^3/uL (2.7-7.7); Neutrophil % 70.8 % (47-70); Platelet Count 179 K/mm3 (150-450); RBC Distribution Width CV 14.6 % (11.6-14.6); RBC Distribution Width SD 47.7 fl (35.1-43.9); Red Blood Count 5.22 M/mm3 (4.6-6.2); White Blood Count 5.1 K/mm3 (4.4-11.0)
[2024-03-09 16:31] LABS: ALB/GLOB Ratio 0.7 RATIO (0.9-2.4); AST(SGOT) 24 U/L (15-37); Alanine Aminotransfer ALT/SGPT 31 U/L (16-61); Albumin, Serum 2.9 g/dL (3.2-5.0); Alkaline Phosphatase 74 U/L (45-117); Anion Gap 4 (5-15); BUN 41 mg/dL (7-18); BUN/Creat Ratio 20.1 RATIO (10-20); Chloride 98 mmol/L (98-107); Creatinine, Serum 2.04 mg/dL (0.70-1.30); EST Glomerular Filtration Rate 34 mL/min (>60); Est Glom Filt Rate - Afr Amer 41 mL/min (>60); Globulin 4.2 g/dL (2.2-4.2); Glucose 99 mg/dL (74-106); Potassium 4.5 mmol/L (3.5-5.1); Protein, Total 7.1 g/dL (6.4-8.2); Sodium Level 135 mmol/L (136-145)
== END | disposition home or self-care (01) ==
PROVIDERS: PCP Family Medicine Geriatric Medicine; Referring Provider Family Medicine Geriatric Medicine; Visit Provider Family Medicine Geriatric Medicine
DX: R06.2 Wheezing (principal); R53.83 Other fatigue; E78.5 Hyperlipidemia, unspecified
CPT/HCPCS: 36415; 71046; 80053; 85025; 87631

== ENCOUNTER → 2024-03-30 | Outpatient (CLI) | payer MEDICARE, OTHER, SELFPAY ==
[2024-01-10 09:38] VITALS: BMI 30.3
--- NOTE | 2024-03-30 12:29 | MRI_ITS ---
INDICATION: assess acute achilles tear, injured 2 weeks ago EXAMINATION: MRI - LEFT MR Ankle W/O Contrast TECHNIQUE: Multiplanar and multisequence MR images of the LEFT ankle. IV Contrast Dosage and Agent: None. COMPARISON: MRI examination of 03/27/2024 FINDINGS: BONE: Bony elements have normal alignment. No evidence of marrow edema. Talar dome is intact. No fracture or marrow edema. No osteochondral lesion. JOINT: Articular cartilage intact. No joint effusion. LIGAMENTS: The syndesmotic ligaments, lateral collateral ligaments, and medial collateral ligaments are intact. TENDONS: 1. There is a complete grade 3 calcaneal ligament tear with approximately 3.8 cm in the interval reduction/retraction of the proximal and of the tendon rupture. Significant surrounding edema. 2. The peroneal tendons, flexor tendons, and extensor tendons are intact. There is a moderate amount of fluid within the tendon sheath of the tibialis posterior. 3. The peroneal tendons, and the extensor compartment and tendons are intact. MUSCLES: Normal bulk and signal. MISCELLANEOUS: Plantar fascia intact. Normal fat in the sinus tarsi. OTHER SOFT TISSUES: Significant dorsal soft tissue swelling and edema involving the foot with extension superiorly in the distal calf. MRI/Lower Ext Joint Only (Routine) IMPRESSION: 1. Grade 3 calcaneal tendon rupture with approximately 3.8 cm of separation due to retraction of the proximal end of the tear. 2. Significant subcutaneous edema in the distal calf, ankle, and extending into the foot. 3. No evidence of marrow edema or acute bony changes. Joint spaces maintained. Electronically Signed: Jaxon Conte MD at 19:49 EDT ,
== END | disposition home or self-care (01) ==
LOC: MRI 11:57
PROVIDERS: PCP Family Medicine Geriatric Medicine; Referring Provider Orthopaedic Surgery Sports Medicine; Visit Provider Orthopaedic Surgery Sports Medicine
DX: M25.572 Pain in left ankle and joints of left foot (principal)
CPT/HCPCS: 73721

== ENCOUNTER → 2024-04-16 | Outpatient (CLI) | payer MEDICARE, OTHER, SELFPAY ==
[2024-01-10 09:38] VITALS: BMI 30.3
[2024-04-16 11:23] LABS: Absolute Lymphocyte Count 0.33 X10^3/uL (0.83-4.51); Absolute Neutrophil Count 2.7 X10^3/uL (2.0-7.7); Basophil# 0.03 X10^3/uL; Basophil% 0.9 % (0-1); Eosinophil# 0.01 X10^3/uL; Eosinophils% 0.3 % (0-5); Hematocrit 38.9 % (40-54); Hemoglobin 12.2 g/dL (13.0-16.5); Lymphocyte # 0.33 X10^3/ul (0.83-4.51); Lymphocyte % 10.3 % (19-41); Mean Corp Hgb Conc 31.4 g/dL (32-36); Mean Corpuscular Hgb 29.7 pg (27.0-32.0); Mean Corpuscular Volume 94.6 fL (80-94); Mean Platelet Vol. 9.8 fl (6.2-12.0); Monocyte# 0.13 X10^3/uL; Monocyte% 4.1 % (0-10); NRBC Flagged by Analyzer 0 % (0-5); Neutrophil # 2.67 X10^3/uL (2.7-7.7); Neutrophil % 83.5 % (47-70); POSITIVE DIFFERENTIAL YES; POSITIVE MORPHOLOGY YES; Platelet Count 193 K/mm3 (150-450); RBC Distribution Width CV 18.2 % (11.6-14.6); RBC Distribution Width SD 61.8 fl (35.1-43.9); Red Blood Count 4.11 M/mm3 (4.6-6.2); White Blood Count 3.2 K/mm3 (4.4-11.0)
[2024-04-16 11:28] LABS: Differential Indicated SCAN CRITERIA MET
[2024-04-16 11:56] LABS: Atypical Lymphocyte 1+ %
[2024-04-16 11:57] LABS: ALB/GLOB Ratio 0.8 RATIO (0.9-2.4); AST(SGOT) 38 U/L (15-37); Alanine Aminotransfer ALT/SGPT 30 U/L (16-61); Alkaline Phosphatase 69 U/L (45-117); Anion Gap 7 (5-15); BUN 39 mg/dL (7-18); BUN/Creat Ratio 20.9 RATIO (10-20); Chloride 100 mmol/L (98-107); Creatinine, Serum 1.87 mg/dL (0.70-1.30); EST Glomerular Filtration Rate 37 mL/min (>60); Est Glom Filt Rate - Afr Amer 45 mL/min (>60); Globulin 3.7 g/dL (2.2-4.2); Glucose 110 mg/dL (74-106); Protein, Total 6.7 g/dL (6.4-8.2); Sodium Level 138 mmol/L (136-145)
[2024-04-16 11:59] LABS: Vitamin D,25 Hydroxy 24.3 ng/mL
== END | disposition home or self-care (01) ==
PROVIDERS: PCP Family Medicine Geriatric Medicine; Visit Provider Family Medicine Geriatric Medicine
DX: R53.83 Other fatigue (principal); E55.9 Vitamin D deficiency, unspecified
CPT/HCPCS: 36415; 80053; 82306; 84443; 85025

== ENCOUNTER → 2024-05-11 | Outpatient (CLI) | payer MEDICARE, OTHER, SELFPAY ==
[2024-01-10 09:38] VITALS: BMI 30.3
--- NOTE | 2024-05-11 17:22 | RAD_ITS ---
INDICATION: WHEEZING EXAMINATION/TECHNIQUE: X-RAY - XR Chest 2 Views COMPARISON: Prior study dated: 03/09/2024 FINDINGS: LINES/DEVICES: None. LUNGS: Persistent loss of volume of the right lung with elevation of the right hilum. Right apical pleural fibrotic changes. Moderate stranding in the right lung and left upper lung zone likely due to scarring. No new infiltrate is seen. No evidence of pleural effusions. MEDIASTINUM AND CARDIOVASCULAR STRUCTURES: Cardiac silhouette not enlarged. Central airways and mediastinal contour are unremarkable. BONES AND SOFT TISSUES: No demonstrated acute osseous changes. RAD/Chest PA and Lateral IMPRESSION: Postoperative changes and scarring in the right lung unchanged. Atelectatic changes or scarring in left mid lung unchanged. Electronically Signed: Kalpesh Matute MD at 9:00 EDT ,
== END | disposition home or self-care (01) ==
PROVIDERS: PCP Family Medicine Geriatric Medicine; Referring Provider Family Medicine Geriatric Medicine; Visit Provider Family Medicine Geriatric Medicine
DX: R06.2 Wheezing (principal)
CPT/HCPCS: 71046

== ENCOUNTER 2024-06-16 15:43 | Emergency (ER) | payer MEDICARE, OTHER, SELFPAY ==
[2024-01-10 09:38] VITALS: BMI 30.3
[2024-06-16] VITALS (12 sets, daily range): BP systolic 106–136; BP diastolic 65–76; PULSE 99–106; RESP 18–27; TEMP 37.1–37.3; O2SAT 84–98; BMI 30.7
[2024-06-16 16:17] LABS: Absolute Neutrophil Count 5.3 X10^3/uL (2.0-7.7); Basophil# 0.06 X10^3/uL; Eosinophil# 0.02 X10^3/uL; Eosinophils% 0.3 % (0-5); Hematocrit 33.7 % (40-54); Hemoglobin 10.6 g/dL (13.0-16.5); Lymphocyte % 8.3 % (19-41); Mean Corp Hgb Conc 31.5 g/dL (32-36); Mean Corpuscular Hgb 31.4 pg (27.0-32.0); Mean Corpuscular Volume 99.7 fL (80-94); Mean Platelet Vol. 9.3 fl (6.2-12.0); Monocyte# 0.19 X10^3/uL; Monocyte% 3.1 % (0-10); NRBC Flagged by Analyzer 0 % (0-5); Neutrophil # 5.26 X10^3/uL (2.7-7.7); Neutrophil % 86.8 % (47-70); POSITIVE DIFFERENTIAL YES; POSITIVE MORPHOLOGY YES; Platelet Count 312 K/mm3 (150-450); RBC Distribution Width CV 17.6 % (11.6-14.6); RBC Distribution Width SD 65.2 fl (35.1-43.9); Red Blood Count 3.38 M/mm3 (4.6-6.2); White Blood Count 6.1 K/mm3 (4.4-11.0)
[2024-06-16] MEDS: Ipratropium/Albuterol Sulfate 3 ML AMPUL.NEB INHALATION (16:21)
[2024-06-16] MEDS: Albuterol 2.5 MG/3 ML VIAL.NEB. INHALATION (16:21)
[2024-06-16 16:28] LABS: International Normalized Ratio 1.2; Prothrombin Time (Protime)PT. 15.2 SECONDS (11.7-14.9)
[2024-06-16 16:29] LABS: Partial Thromboplast Time 34.6 Seconds (24.1-36.2)
[2024-06-16 16:39] LABS: ALB/GLOB Ratio 0.6 RATIO (0.9-2.4); AST(SGOT) 30 U/L (15-37); Alanine Aminotransfer ALT/SGPT 20 U/L (16-61); Albumin, Serum 2.7 g/dL (3.2-5.0); Alkaline Phosphatase 59 U/L (45-117); Anion Gap 7 (5-15); BUN 24 mg/dL (7-18); BUN/Creat Ratio 11.8 RATIO (10-20); Chloride 98 mmol/L (98-107); Creatinine, Serum 2.03 mg/dL (0.70-1.30); EST Glomerular Filtration Rate 34 mL/min (>60); Est Glom Filt Rate - Afr Amer 41 mL/min (>60); Estimated Creatinine Clearance 39.33 ml/min; Globulin 4.3 g/dL (2.2-4.2); Glucose 84 mg/dL (74-106); Lactic Acid 1.5 mmol/L (0.4-1.9); Potassium 4.4 mmol/L (3.5-5.1); Sodium Level 134 mmol/L (136-145); Troponin-I HS 30 pg/mL (3.0-78.0)
[2024-06-16 17:07] LABS: Differential Indicated SCAN CRITERIA MET
[2024-06-16] MEDS: Ondansetron 4 MG/2 ML Vial IV (17:07)
[2024-06-16 17:21] LABS: Bacteria 0 SEEN /hpf (None Seen); Mucous, Urine 0 SEEN /hpf (<or=2+); Squamous Epithelial Cells - UA 0 SEEN /hpf (0-5)
[2024-06-16 17:26] LABS: Color, Urine Yellow (Yellow); Glucose, Dipstick Normal (Normal); Ketone-Dipstick 5 mg/dl (Negative); Leukocyte Esterase-Dipstick 25 /ul (Negative); Nitrite-Dipstick Negative (Negative); Occult Blood-Urine Negative /ul (Negative); Protein-Dipstick 30 mg/dl (Negative); Specific Gravity, Urine 1.015 (1.002-1.030); Urine Bilirubin Dipstick Negative (Negative); Urine Clarity Clear (Clear); Urine Urobilinogen 1 mg/dl (Normal)
[2024-06-16 17:27] LABS: Anisocytosis 2+; Platelet Estimate ADEQUATE (ADEQ)
[2024-06-16 17:28] LABS: Hypochromasia 1+
[2024-06-16 17:37] LABS: Red Blood Cells-Urine 0-5 SEEN /hpf (0-5); White Blood Cells 0-5 SEEN /hpf (0-5)
[2024-06-16] MEDS: MethylPREDNISolone 125 MG/2 ML Vial 60 MG IV (18:36)
== END 2024-06-16 18:38 | disposition home or self-care (01) ==
PROVIDERS: Emergency Provider Emergency Medicine; PCP Family Medicine Geriatric Medicine; Visit Provider Emergency Medicine
DX: J20.9 Acute bronchitis, unspecified (principal); J44.1 Chronic obstructive pulmonary disease with (acute) exacerbation; N18.30 Chronic kidney disease, stage 3 unspecified; E78.5 Hyperlipidemia, unspecified; Z87.891 Personal history of nicotine dependence; R06.02 Shortness of breath; Z79.52 Long term (current) use of systemic steroids; K21.9 Gastro-esophageal reflux disease without esophagitis; R60.0 Localized edema; D84.9 Immunodeficiency, unspecified; Z85.118 Personal history of other malignant neoplasm of bronchus and lung
CPT/HCPCS: 71046; 80053; 81001; 83605; 84484; 85025; 85610; 85730; 87040; 87631; 93005; 94640; 96374; 96375; 99284; A4216; J2405